=== PATIENT | male | born 1945 | race Caucasian/White ===

== ENCOUNTER 2016-10-07 07:08 | Emergency (ER) | payer MEDICARE, BC ==
[2016-10-07 07:31] VITALS: BP 128/68
--- NOTE | 2016-10-07 08:13 | UC ---
Kristina Rojas Edward, scribed for Amee Banuelos MD on 10/07/16 at 0722 . Complaint Male HPI - HPI Summary HPI Summary: 71 y/o male presents to [facility] c/o increased urinary frequency starting one week ago. Patient states that little urine comes out when the patient goes at night, starting 3 nights ago. Pt states has been urinating every 30-60 minutes since Sunday. Patient also reports when symptoms stated on Sunday had dysuria, characterized as a "searing pain," which has since resolved. The pain due to urination is rated at a 2/10 @ triage, but states when he gave his sample in the UC had no pain. Associated sx: chills (resolved), fevers (tactile - resolved), nausea when the patient started taking Bactrim - resolved, and chronic intermittent lower back pain unchanges from previous. Denies any changes in appetite. Pt state did not drink as much water due to frequency of urination. Pt denies abd pain and sense of distension. Pt reports has forgotten to take his Flomax over the past several day. PMHx slightly enlarged prostate, chronic back pain, cardiac disease, sleep apnea and Parkinson's disease. The patient was dx with a urinary infection by Dr. Patrick Vasquez (Urology) last week. Patient has been taking Bactrim starting Sunday evening. Patient's last prostate exam was around 6 months ago. Pt without h/o urinary retention. Past medications reviewed upon visit. - History of Current Complaint Chief Complaint: UCGU Stated Complaint: UTI COMPLAINT Hx Obtained From: Patient Onset/Duration: Gradual Onset, Lasting Weeks - Starting Sunday Timing: Intermittent Severity Initially: Moderate Severity Currently: Mild Pain Intensity: 2 - Dysuria Pain Scale Used: 0-10 Numeric - @ triage Character: Burning Associated Signs And Symptoms: Positive: Fever - and chills, Dysuria - with increased frequency. Pain now resolved, Nausea - When the patient started taking Bactrim - Allergies/Home Medications Allergies/Adverse Reactions: Allergies Allergy/AdvReac Type Severity Reaction Status Date / Time Ciprofloxacin [From Cipro] Allergy Unknown Difficulty Verified 09/04/16 15:08 Breathing Minocycline Allergy Unknown Hives Verified 09/04/16 15:08 Clopidogrel [From Plavix] AdvReac Unknown See Comment Verified 09/04/16 15:08 Home Medications: Home Medications Sulfamethox/Trimethoprim DS* [Bactrim DS 800/160 TAB*] 1 tab PO BID 10/07/16 [ History Confirmed 10/07/16] PMH/Surg Hx/FS Hx/Imm Hx Previously Healthy: No Cardiovascular History: Hypertension, Other Other Cardiovascular History: Irregular Heartbeat, Ischemic CVA Neurological History: Other Other Neurological History: Parkinson's Disease - Surgical History Surgical History: Yes Surgery Procedure, Year, and Place: T/A A CHILD, 1951, [place] NYTUMOR ON FOOT 1952 FROM PUNCTURE WOUND, WISDOM TEETH 1971, basal cell FACE AND BACK SEVERAL TIMES IN PAST 10-15 YRS, hernia repair (DOUBLE), Deep Brain Stimulation electrodes in place - Family History Known Family History: Positive: Hypertension Negative: Diabetes - Social History Occupation: Retired Lives: With Family Alcohol Use: Weekly Alcohol Amount: 2 glasses wine 4 days/week Substance Use Type: None Smoking Status (MU): Former Smoker Type: Pipe Amount Used/How Often: PIPE Have You Smoked in the Last Year: No When Did the Patient Quit Smoking/Using Tobacco: 1979 - Immunization History Most Recent Influenza Vaccination: 2014 Most Recent Tetanus Shot: 2014 Review of Systems Constitutional: Fever, Chills Skin: Negative Eyes: Negative ENT: Negative Respiratory: Negative Cardiovascular: Negative Gastrointestinal: Nausea Genitourinary: Dysuria - markedly improved, Frequency - Little urine comes out Motor: Negative Neurovascular: Negative Musculoskeletal: Myalgia - Chronic back pain - intermittent Neurological: Negative Psychological: Negative All Other Systems Reviewed And Are Negative: Yes Physical Exam Triage Information Reviewed: Yes Appearance: Well-Appearing, No Pain Distress, Well-Nourished Vital Signs: Initial Vital Signs Temp 98.2 F 10/07/16 07:12 Pulse 78 10/07/16 07:12 Resp 16 10/07/16 07:12 Pulse Ox 97 10/07/16 07:12 Eye Exam: Normal Eyes: Negative: Discharge ENT: Positive: Hearing grossly normal Dental Exam: Normal Neck exam: Normal Neck: Positive: 1 Respiratory Exam: Normal Respiratory: Positive: No respiratory distress, No accessory muscle use Cardiovascular Exam: Normal Abdominal Exam: Normal Abdomen Description: Positive: Nontender, No Organomegaly, Soft, Bruit. Negative: CVA Tenderness (R), CVA Tenderness (L), Distended, Guarding Bowel Sounds: Positive: Present Musculoskeletal Exam: Normal Neurological Exam: Normal Psychological Exam: Normal Skin Exam: Normal Complaint Male Course/Dx - Course Course Of Treatment: 71 y/o male presents to [facility] c/o increased urinary frequency starting one week ago, with little urine coming out and frequency. Pt does not feel distended or like he is retaining. Patient also c/o dysuria that has since resolved. Patient was dx with urinary infection by Dr. Vasquez on 01/09 and is on his fifth day of Bactrim. Pt has forgotten to take his flomax. Urinalysis today reveals trace blood and 1+ LE. Culture from 10/02 reveals bactrim sensitive E. Coli. Pt has only taken 4.5 days and overall has improved - no dysuria, resolved subjective fevers and chills, + appetite. No ultrasound available at this facility. I discussed with pt regarding diagnostic cath for retention and will leave in if pt is retaining. Pt declined this at this time as does not feel like is retaining. Pt with nonconcerning exam. Will continue Bactrim. encourage fluids. resume flomax. Pt is traveling out of town for a few days - given culture results to take with him. Pt encouraged to seek medical care if unable to urinate, fever, chills, back pain or any other concerns f/u dr. Vasquez upon return. Pt comfortable and in agreement with plan. Pt's urine sent for culture again today - Differential Dx/Diagnosis Provider Diagnoses: UTI Discharge - Discharge Plan Condition: Stable Disposition: HOME Patient Education Materials: Urinary Tract Infection in Men (ED) Referrals: Geraldo Saab MD [Primary Care Provider] - Additional Instructions: - Continue to take Bactrim as previously prescribed - Resume taking your flomax after dinner - Increase your fluids - avoid excess caffeine and alcohol - If you develop increased pain, fevers, vomiting, new or different back pain, abdominal pain, or inability to urinate it is strongly recommended you seek treatment at the nearest medical facility - If you continue to have questions or concerns, contact Dr. Vasquez or return to a medical facility The documentation as recorded by the Kristina vasquez Edward accurately reflects the service I personally performed and the decisions made by me, Amee Banuelos MD.
== END 2016-10-07 08:17 | disposition home or self-care (01) ==
LOC: UCEAST 07:08
DX: N39.0 Urinary tract infection, site not specified (principal)
CPT/HCPCS: 81003; 87086; 99212; G0463

== ENCOUNTER 2017-05-02 07:04 | Emergency (ER) | payer MEDICARE, BC ==
--- OUTSIDE RECORDS SUMMARY | 2017-05-02 07:17 | XMS REPORT ---
:1945 External Reference #:[id number] Author Organization [facility] Address [address] [address] Phone [phone] Care Team Providers Name Role Phone Geraldo Saab III, MD Primary Care Physician Unavailable Payers Type Date Identification Numbers Payment Provider Subscriber Medicare Primary Effective: Policy Number: Medicare Chris Wallis JR 2009 [id number] PayID: [id number] [address] [place] [address] Medigap Part B Policy Number: [id number] [facility] Chris Wallis JR Group Number: [id number] [address] PayID: [id number] [place] [address] Problems Date Description Provider Status Onset: 11/24/2010 Impaired fasting glycaemia Geraldo Saab M.D. Active Onset: 11/24/2010 Allergic rhinitis Geraldo Saab M.D. Active Onset: 04/19/2011 Arthralgia of the lower leg Geraldo Saab M.D. Active Onset: 06/20/2011 Malaise and fatigue Geraldo Saab M.D. Active Onset: 07/17/2011 Urinary tract infectious disease Geraldo Saab M.D. Active Onset: 11/01/2011 Dyspnea Geraldo Saab M.D. Active Onset: 11/01/2011 Amnesia Geraldo Saab M.D. Active Onset: 11/22/2011 Electrocardiogram abnormal Nahun Clay M.D. Active Onset: 08/27/2012 Umbilical hernia Geraldo Saab M.D. Active Onset: 06/23/2013 Sleep apnea Geraldo Saab M.D. Active Onset: 06/23/2013 Parkinson's disease Geraldo Saab M.D. Active Onset: 08/08/2013 Pure hypercholesterolemia Nahun Clay M.D. Active Onset: 08/08/2013 Coronary arteriosclerosis Nahun Clay M.D. Active Onset: 08/08/2013 Edema Nahun Clay M.D. Active Onset: 10/01/2014 Difficulty breathing Sarah Muniz MD Active Onset: 10/06/2014 Obstructive sleep apnea of adult Shira Loredo DNP, RN, Active [facility] Social History Type Date Description Comments Marital Status Lives With Occupation Retired Cigarette Use Never Smoked Cigarettes Cigarette Use pipe only in the past Cigarette Use Quit in 1982 ETOH Use Consumes 1 glass of wine per 3-4 days weekly day Recreational Drug Use Denies Drug Use Smoking Patient is a former smoker Daily Caffeine Consumes on average 1 cup of hot tea per day Daily Caffeine 4 cups of coffee a week Exercise Type/Frequency Exercises sporadically walks on occ for up to a half hr Allergies, Adverse Reactions, Alerts Date Description Reaction Status Severity Comments 03/28/2007 Plavix active 03/28/2007 Minocycline active Hives 07/17/2011 Cipro Cramps active Medications Medication Date Status Form Strength Qnty SIG Indications Ordering Provider Famotidine 04/10/ Active Tablets 40mg 30tab 1 by mouth K21.9 Geraldo Cruz 2017 s every day Josue Saab Azilect 05/04/ Active Tablets 1mg 2 tab daily Unknown 2016 Carbidopa-Levod 05/31/ Active Tablets 25-100mg 270ta 1 po 3x a Ck Brnuo opa 2015 day Josue Alaniz Prozac 05/31/ Active Capsules 20mg 90cap 1 by mouth Ck Bruno 2016 s every day Josue Alaniz OTC Hemmroid 11/26/ Active prn Geraldo Cruz Cream 2007 Josue Saab Ecotrin Regular / Active Tablets DR 81mg 1 PO qd Unknown Strength 0000 Flaxseed Oil / Active 1000mg 1 PO bid Katiana 0000 Geraldo GR MD Tamsulosin HCL / Active 0.4mg 1 po qd Unknown 0000 Cortisone Cream / Active topical Unknown 0000 Ciclopirox / Active Cream 0.77% 30gm apply to Unknown Olamine 0000 penis qd as needed Ducosate Sodium / Active Tablets DR 100mg 1 tab po Unknown 0000 qpm Triamcinolone / Active Cream 0.1% apply twice Unknown Acetonide 0000 a day until clear Magnesium / Active Tablets 250mg 1 by mouth Unknown 0000 twice a day Finasteride / Active Tablets 5mg Hannah, 0000 MD Migel Voltaren 07/11/ Hx Gel 1% 300gm apply 2 M79.672 John 2016 - grams of Gomez, [employer] 04/09/ gel twice 2018 daily to the affected area. Azithromycin 05/18/ Hx Tablets 250mg 6tabs two tabs J20.9 Kusum 2016 - day one, Varn, 05/28/ one daily N.P. 2017 till gone Cheratussin ac 05/18/ Hx Syrup 100-10mg/ 120ml 2 teaspoons J20.9 Kusum 2016 - 5ML by mouth Varn, 07/11/ every 4 N.P. 2017 hours as needed Dyazide 04/08/ Hx Capsules 37.5-25mg 30cap 1 by mouth Geraldo Cruz 2016 - s daily 3 Katiana, 12/28/ days per M.D. 2017 week Benzonatate 03/10/ Hx Capsules 100mg 30cap 1-2 tab by J06.9 Geraldo Cruz 2015 - s mouth three Katiana, 04/07/ times a day M.D. 2017 as needed Ropinirole HCL 05/31/ Hx Tablets 1mg 4 po tid Ck Bruno 2016 - Katty, 11/22/ M.D. 2016 Ropinirole HCL 04/21/ Hx Tablets 2mg 1 tab by Geraldo Cruz 2015 - mouth tid Katiana, 05/31/ M.D. 2016 Ropinirole HCL 03/01/ Hx Tablets 0.5mg 360ta 1 po tid Geraldo Cruz 2015 - bs Katiana, 04/21/ M.D. 2016 Nitrostat 12/02/ Hx Tablets Sub 0.4mg 25tab one sl Geraldo Cruz 2015 - s q5min up to Katiana, doses as M.D. 2016 needed Amantadine HCL 11/18/ Hx Syrup 50mg/5ML 150ml 25 mg/2.5 Ck Bruno 2014 - ml at 8 Am [place], and at no M.D. 2014 pt states this is on hold Carbidopa-Levod 09/24/ Hx Tablets 25-100mg 270ta / tab by Ck Bruno opa 2013 - bs mouth six , 02/09/ times every M.D. 2014 day Pravastatin 06/23/ Hx Tablets 20mg 90tab 1 tablet by 272.0 Geraldo Cruz Sodium 2013 - s mouth once Katiana, 06/11/ daily at M.D. 2013 bedtime Amantadine HCL 10/02/ Hx Syrup 50mg/5ML 350un 50 mg/5 ml Ck Bruno 2012 - its at [facility], 05/06/ M.D. 2013 Amantadine HCL 07/16/ Hx Capsules 100mg 90cap 1 by mouth Melia 2012 - s every Gnadt, [employer] 09/30/ morning on 2014 hold as of 08/24/14 Nasonex 05/30/ Hx Suspension 50mcg/Act 1unit 2 sprays to Nahun 2012 - s each F. 08/31/ nostril Danna, 2014 twice daily M.D. prn Asmanex 30 02/20/ Hx Aerosol 110mcg/In 30uni 1 puffs R06.00 Geraldo Cruz Metered Doses 2011 - h ts daily in Katiana, 03/01/ the evening M.D. 2014 Sulfamethoxazol 07/16/ Hx Tablets 800-160mg 20tab 1 po bid 599.0 Geraldo Cruz e/Trimethoprim 2011 - s Katiana, DUYEN 12/19/ M.D. 2011 Androderm 06/19/ Hx Patches 2mg/24HR 30uni apply 1 780.79 Geraldo Cruz 2011 - 24HR ts patch Katiana, 12/19/ daily; M.D. 2011 replace after 24 hours code f Cipro 12/06/ Hx Tablets 500mg 28tab 1 po bid 601.1 Jason 2010 - s [place] 04/19/ , M.D. 2012 Septra DS 11/25/ Hx Tablets 800-160mg 20tab 1 po bid 604.90 Geraldo Cruz 2009 - s Katiana, M.DPrtii 2009 Ibuprofen 05/03/ Hx Tablets 600mg 90tab 1 po tid Geraldo Cruz 2009 - s prn Katiana, M.D. 2016 Amoxicillin 12/19/ Hx Tablets 500mg 30tab 1 po tid Geraldo Cruz 2007 - s for 10 days Katiana, M.D. 2007 Liz 06/19/ Hx Tablets 180mg 30tab 1 po qd prn Geraldo Cruz 2007 - s Katiana, M.D. 2013 Physical PT Geraldo Cruz Therapy 2007 - evaluation Katiana, and M.DPriti 2009 treatment for neck pains Vitamin C / Hx Tablets 500mg 1 PO qd Katiana 0000 - III, 07/16/ Geraldo Cruz MD Multivitamins / Hx Tablets 90tab 1 PO qd Unknown 0000 - s 2011 Kenalog / Hx Cream 0.1% 60GM Apply bid Neville, 0000 - prn Eczema MD Javier 2008 Proctosol HC / Hx Cream 2.5% 60gm Apply bid Neville 0000 - ping Herrera MD 2008 Metamucil 00/00/ Hx Powder po with Unknown Original 0000 - liquid qhs Texture 2014 Nystatin 00/ Hx Cream [id number] 60g topically Unknown 0000 - t/GM bid prn 2015 Melatonin /00/ Hx Capsules 5mg 1 by mouth Unknown 0000 - every night 12/28/ at bedtime 2016 Prozac /00/ Hx Capsules 10mg 1 by mouth Unknown 0000 - every day 2015 Metamucil /00/ Hx Powder 28.3% as needed Unknown 0000 - 2014 Sinemet /00/ Hx Tablets 25-100mg 1/2 po bid Unknown 0000 - 2015 Neupro /00/ Hx Patches 2mg/24HR apply once Unknown 0000 - 24HR daily at 6 12/16/ am 2015 Aspirin Ec Low 00/ Hx Tablets DR 81mg 1 by mouth Unknown Dose 0000 - every day 2015 Medications Administered in Office Medication Date Status Form Strength Qnty SIG Indications Ordering Provider Influenza Administered Injection Geraldo Cruz Virus Vaccine 015 Josue Saab Influenza Administered Injection Unknown Virus Vaccine 014 Immunizations CPT Code Status Date Vaccine Lot # [id number] Given 01/14/2016 Fluzone High Dose 70089 Given 08/31/2014 Tdap - Tetanus/Diptheria/Acellular Pertussis [id number] 10018 Given 08/31/2014 Pneumococcal Conjugate Vaccine 13 Valent For [id number] Intramuscular Use 25505 Given 07/28/2010 Pneumonia Vaccine [id number] 33704 Given 01/14/2009 Influenza Virus 3Yrs & Over 83349 Given 09/07/2008 Zoster (Zostavax) 03160 Given 01/01/2008 Influenza Virus 3Yrs & Over 49591 Given 07/13/2004 Td (History By Patient) Vital Signs Date Vital Result Comment 04/12/2017 Height 68.25 inches 5'8.25" Weight 190.00 lb Heart Rate 63 /min BP Systolic Sitting 140 mmHg BP Diastolic Sitting 80 mmHg Body Temperature 95.1 F O2 % BldC Oximetry 98 % BMI (Body Mass Index) 28.7 kg/m2 04/10/2017 Height 68.25 inches 5'8.25" Weight 190.00 lb Heart Rate 67 /min BP Systolic Sitting 140 mmHg BP Diastolic Sitting 92 mmHg Body Temperature 97.7 F O2 % BldC Oximetry 96 % BMI (Body Mass Index) 28.7 kg/m2 12/29/2016 Height 70 inches 5'10" Weight 186.25 lb Heart Rate 62 /min BP Systolic 104 mmHg BP Diastolic 82 mmHg BMI (Body Mass Index) 26.7 kg/m2 07/11/2016 Weight 181.00 lb Heart Rate 65 /min BP Systolic Sitting 118 mmHg BP Diastolic Sitting 74 mmHg Pain Level 3 L foot O2 % BldC Oximetry 97 % 06/20/2016 Height 70 inches 5'10" Weight 175.00 lb Heart Rate 70 /min BP Systolic Sitting 124 mmHg BP Diastolic Sitting 82 mmHg BMI (Body Mass Index) 25.1 kg/m2 Ejection Fraction 50% - 55% echo 12/16/14 06/07/2016 Height 70 inches 5'10" Weight 173.00 lb Heart Rate 60 /min BP Systolic Sitting 138 mmHg BP Diastolic Sitting 82 mmHg Respiratory Rate 14 /min BMI (Body Mass Index) 24.8 kg/m2 05/18/2016 Weight 178.00 lb with shoes Heart Rate 65 /min BP Systolic 140 mmHg BP Diastolic 86 mmHg Body Temperature 99.0 F O2 % BldC Oximetry 98 % 05/05/2016 Height 68 inches 5'8" Weight 181.00 lb Heart Rate 58 /min BP Systolic 124 mmHg BP Diastolic 82 mmHg Respiratory Rate 14 /min O2 % BldC Oximetry 93 % BMI (Body Mass Index) 27.5 kg/m2 04/07/2016 Height 68 inches 5'8" Weight 181.12 lb Heart Rate 63 /min BP Systolic 120 mmHg BP Diastolic 80 mmHg Body Temperature 97.4 F O2 % BldC Oximetry 99 % BMI (Body Mass Index) 27.5 kg/m2 03/10/2016 Weight 170.00 lb Heart Rate 54 /min BP Systolic Sitting 130 mmHg BP Diastolic Sitting 70 mmHg Body Temperature 98.1 F O2 % BldC Oximetry 98 % 01/28/2016 Weight 166.00 lb Heart Rate 71 /min BP Systolic Sitting 114 mmHg BP Diastolic Sitting 64 mmHg Body Temperature 97.7 F O2 % BldC Oximetry 98 % 01/05/2016 Height 69.5 inches 5'9.50" Weight 164.00 lb Heart Rate 52 /min BP Systolic Sitting 140 mmHg BP Diastolic Sitting 82 mmHg Body Temperature 97.7 F O2 % BldC Oximetry 99 % BMI (Body Mass Index) 23.9 kg/m2 11/24/2015 Height 70 inches 5'10" Weight 159.25 lb Heart Rate 72 /min BP Systolic Sitting 140 mmHg BP Diastolic Sitting 80 mmHg Respiratory Rate 16 /min O2 % BldC Oximetry 97 % BMI (Body Mass Index) 22.8 kg/m2 06/01/2015 Height 70 inches 5'10" Weight 163.00 lb Patient reported this Am Heart Rate 64 /min BP Systolic Sitting 128 mmHg BP Diastolic Sitting 78 mmHg Respiratory Rate 16 /min BMI (Body Mass Index) 23.4 kg/m2 04/21/2015 Height 70 inches 5'10" Weight 163.00 lb Heart Rate 66 /min BP Systolic Sitting 142 mmHg LA, reg BP Diastolic Sitting 96 mmHg LA, reg BMI (Body Mass Index) 23.4 kg/m2 Ejection Fraction 50%-55% echo 12/16/14 03/01/2015 Height 70 inches 5'10" Weight 163.00 lb Heart Rate 88 /min BP Systolic Sitting 134 mmHg BP Diastolic Sitting 84 mmHg Body Temperature 97.2 F BMI (Body Mass Index) 23.4 kg/m2 02/10/2015 Height 70 inches 5'10" Heart Rate 64 /min BP Systolic Sitting 136 mmHg BP Diastolic Sitting 80 mmHg Respiratory Rate 16 /min 12/24/2014 Height 70 inches 5'10" Weight 157.00 lb w/shoes Heart Rate 60 /min BP Systolic Sitting 138 mmHg LA reg cuff BP Diastolic Sitting 100 mmHg LA reg cuff BMI (Body Mass Index) 22.5 kg/m2 Ejection Fraction 50-55 echo 12/16/14 12/03/2014 Height 70 inches 5'10" Weight 158.00 lb Heart Rate 84 /min BP Systolic 142 mmHg LA reg BP Diastolic 98 mmHg LA reg BMI (Body Mass Index) 22.7 kg/m2 Ejection Fraction 55-60% ECHO 09/09/14 12/02/2014 Height 70 inches 5'10" Weight 158.00 lb Heart Rate 66 /min BP Systolic Sitting 124 mmHg BP Diastolic Sitting 78 mmHg O2 % BldC Oximetry 96 % BMI (Body Mass Index) 22.7 kg/m2 11/18/2014 Height 70 inches 5'10" Weight 161.00 lb Heart Rate 76 /min BP Systolic Sitting 130 mmHg BP Diastolic Sitting 82 mmHg Respiratory Rate 16 /min BMI (Body Mass Index) 23.1 kg/m2 10/06/2014 Height 70 inches 5'10" Weight 167.00 lb Heart Rate 62 /min BP Systolic 140 mmHg BP Diastolic 80 mmHg Respiratory Rate 14 /min O2 % BldC Oximetry 96 % BMI (Body Mass Index) 24.0 kg/m2 Neck Circumference in inches 15 10/01/2014 Height 70 inches 5'10" Weight 165.00 lb Heart Rate 71 /min BP Systolic Sitting 130 mmHg BP Diastolic Sitting 70 mmHg O2 % BldC Oximetry 97 % BMI (Body Mass Index) 23.7 kg/m2 09/07/2014 Height 69 inches 5'9" Weight 167.00 lb w/shoes Heart Rate 74 /min BP Systolic Sitting 142 mmHg LA reg cuff BP Diastolic Sitting 82 mmHg LA reg cuff Respiratory Rate 14 /min BMI (Body Mass Index) 24.7 kg/m2 Ejection Fraction 50-55 echo 06/12/14 09/03/2014 Height 69 inches 5'9" Weight 168.38 lb Heart Rate 77 /min BP Systolic Sitting 120 mmHg BP Diastolic Sitting 60 mmHg Respiratory Rate 18 /min Body Temperature 97.1 F O2 % BldC Oximetry 97 % BMI (Body Mass Index) 24.9 kg/m2 08/31/2014 Weight 168.25 lb Heart Rate 74 /min BP Systolic Sitting 112 mmHg BP Diastolic Sitting 70 mmHg Respiratory Rate 16 /min Body Temperature 98.7 F O2 % BldC Oximetry 98 % 05/21/2014 Weight 173.00 lb Heart Rate 66 /min BP Systolic Sitting 160 mmHg BP Diastolic Sitting 80 mmHg Body Temperature 97.6 F 05/07/2014 Weight 175.25 lb Heart Rate 50 /min BP Systolic Sitting 132 mmHg BP Diastolic Sitting 80 mmHg Body Temperature 97.2 F Pain Level 3 04/28/2014 Height 69.5 inches 5'9.50" Weight 176.00 lb Heart Rate 68 /min BP Systolic Sitting 128 mmHg BP Diastolic Sitting 72 mmHg Respiratory Rate 16 /min BMI (Body Mass Index) 25.6 kg/m2 04/23/2014 Weight 177.75 lb Heart Rate 77 /min BP Systolic Sitting 128 mmHg BP Diastolic Sitting 83 mmHg 04/21/2014 Height 70 inches 5'10" Weight 177.25 lb with shoes Heart Rate 58 /min BP Systolic 121 mmHg repeat BP Diastolic 82 mmHg repeat BP Systolic Sitting 134 mmHg La reg cuff BP Diastolic Sitting 82 mmHg La reg cuff Respiratory Rate 16 /min BMI (Body Mass Index) 25.4 kg/m2 03/02/2014 Weight 176.25 lb Heart Rate 67 /min BP Systolic 116 mmHg BP Diastolic 82 mmHg Body Temperature 97.0 F O2 % BldC Oximetry 98 % 01/05/2014 Height 69.5 inches 5'9.50" Weight 172.50 lb Heart Rate 64 /min BP Systolic Sitting 130 mmHg BP Diastolic Sitting 82 mmHg Body Temperature 97.8 F BMI (Body Mass Index) 25.1 kg/m2 10/29/2013 Height 69.5 inches 5'9.50" Weight 168.00 lb Heart Rate 64 /min BP Systolic Sitting 118 mmHg BP Diastolic Sitting 76 mmHg Respiratory Rate 16 /min BMI (Body Mass Index) 24.5 kg/m2 08/08/2013 Height 69.5 inches 5'9.50" Weight 169.00 lb Heart Rate 56 /min BP Systolic Sitting 128 mmHg BP Diastolic Sitting 70 mmHg Respiratory Rate 16 /min BMI (Body Mass Index) 24.6 kg/m2 07/15/2013 Height 69.5 inches 5'9.50" Weight 169.00 lb Heart Rate 67 /min BP Systolic Sitting 130 mmHg BP Diastolic Sitting 80 mmHg Respiratory Rate 16 /min BMI (Body Mass Index) 24.6 kg/m2 06/23/2013 Weight 173.00 lb Heart Rate 60 /min BP Systolic Sitting 130 mmHg BP Diastolic Sitting 82 mmHg 01/23/2013 Height 69.5 inches 5'9.50" Weight 174.00 lb Heart Rate 56 /min BP Systolic Sitting 108 mmHg BP Diastolic Sitting 78 mmHg Body Temperature 97.8 F BMI (Body Mass Index) 25.3 kg/m2 01/15/2013 Heart Rate 64 /min BP Systolic Sitting 128 mmHg BP Diastolic Sitting 74 mmHg Respiratory Rate 18 /min 12/23/2012 Height 69.5 inches 5'9.50" Weight 169.25 lb Heart Rate 62 /min BP Systolic Sitting 144 mmHg BP Diastolic Sitting 82 mmHg BMI (Body Mass Index) 24.6 kg/m2 08/27/2012 Height 69.5 inches 5'9.50" Weight 178.25 lb Heart Rate 56 /min BP Systolic Sitting 120 mmHg BP Diastolic Sitting 80 mmHg BMI (Body Mass Index) 25.9 kg/m2 08/02/2012 Height 69.5 inches 5'9.50" Weight 180.75 lb Heart Rate 80 /min BP Systolic Sitting 128 mmHg irregular BP Diastolic Sitting 62 mmHg irregular BMI (Body Mass Index) 26.3 kg/m2 06/19/2012 Height 69.5 inches 5'9.50" Weight 184.50 lb Heart Rate 62 /min BP Systolic Sitting 132 mmHg BP Diastolic Sitting 78 mmHg BMI (Body Mass Index) 26.9 kg/m2 06/10/2012 Height 69.5 inches 5'9.50" Weight 184.25 lb Heart Rate 68 /min BP Systolic Sitting 112 mmHg BP Diastolic Sitting 70 mmHg BMI (Body Mass Index) 26.8 kg/m2 05/30/2012 Height 69.5 inches 5'9.50" Weight 186.00 lb Heart Rate 76 /min BP Systolic 120 mmHg BP Diastolic 80 mmHg Respiratory Rate 16 /min BMI (Body Mass Index) 27.1 kg/m2 05/03/2012 Height 69.5 inches 5'9.50" Weight 182.00 lb Heart Rate 64 /min BP Systolic Sitting 124 mmHg BP Diastolic Sitting 84 mmHg Body Temperature 99.2 F O2 % BldC Oximetry 98 % BMI (Body Mass Index) 26.5 kg/m2 04/03/2012 Height 69.25 inches 5'9.25" Weight 183.00 lb Heart Rate 72 /min BP Systolic Sitting 122 mmHg BP Diastolic Sitting 70 mmHg BMI (Body Mass Index) 26.8 kg/m2 02/21/2012 Height 69.75 inches 5'9.75" Weight 182.00 lb Heart Rate 72 /min BP Systolic Sitting 145 mmHg BP Diastolic Sitting 80 mmHg BMI (Body Mass Index) 26.3 kg/m2 12/20/2011 Height 69.75 inches 5'9.75" Weight 179.00 lb Heart Rate 68 /min BP Systolic Sitting 120 mmHg BP Diastolic Sitting 86 mmHg BMI (Body Mass Index) 25.9 kg/m2 11/01/2011 Height 69.75 inches 5'9.75" Weight 184.00 lb Heart Rate 66 /min BP Systolic Sitting 116 mmHg BP Diastolic Sitting 78 mmHg BMI (Body Mass Index) 26.6 kg/m2 08/17/2011 Height 69.75 inches 5'9.75" Weight 178.00 lb Heart Rate 72 /min BP Systolic Sitting 124 mmHg BP Diastolic Sitting 84 mmHg BMI (Body Mass Index) 25.7 kg/m2 07/17/2011 Height 69.75 inches 5'9.75" Weight 187.00 lb Heart Rate 68 /min BP Systolic Sitting 130 mmHg BP Diastolic Sitting 72 mmHg Body Temperature 99.5 F BMI (Body Mass Index) 27.0 kg/m2 07/07/2011 Height 69.75 inches 5'9.75" Weight 187.00 lb Heart Rate 68 /min BP Systolic Sitting 130 mmHg BP Diastolic Sitting 94 mmHg Body Temperature 99.2 F Tympanically BMI (Body Mass Index) 27.0 kg/m2 06/20/2011 Height 69.75 inches 5'9.75" Weight 186.00 lb Heart Rate 68 /min BP Systolic Sitting 134 mmHg BP Diastolic Sitting 88 mmHg BMI (Body Mass Index) 26.9 kg/m2 06/13/2011 Height 69.75 inches 5'9.75" Weight 186.00 lb Heart Rate 72 /min BP Systolic Sitting 112 mmHg BP Diastolic Sitting 60 mmHg BMI (Body Mass Index) 26.9 kg/m2 04/19/2011 Height 69.75 inches 5'9.75" Weight 183.50 lb Heart Rate 60 /min BP Systolic Sitting 134 mmHg BP Diastolic Sitting 84 mmHg BMI (Body Mass Index) 26.5 kg/m2 12/06/2010 Weight 183.00 lb Heart Rate 60 /min BP Systolic Sitting 122 mmHg BP Diastolic Sitting 84 mmHg 11/24/2010 Height 69.5 inches 5'9.50" Weight 182.00 lb Heart Rate 76 /min BP Systolic Sitting 122 mmHg L BP Diastolic Sitting 84 mmHg L BMI (Body Mass Index) 26.5 kg/m2 07/28/2010 Weight 189.00 lb Heart Rate 60 /min BP Systolic Sitting 132 mmHg BP Diastolic Sitting 86 mmHg 04/15/2010 Weight 188.00 lb Heart Rate 84 /min BP Systolic Sitting 134 mmHg BP Diastolic Sitting 88 mmHg Body Temperature 98.6 F O2 % BldC Oximetry 98 % 11/25/2009 Weight 192.00 lb Heart Rate 58 /min BP Systolic Sitting 134 mmHg BP Diastolic Sitting 84 mmHg 09/09/2009 Weight 189.00 lb Heart Rate 62 /min BP Systolic Sitting 122 mmHg BP Diastolic Sitting 84 mmHg 05/31/2009 Height 70.75 inches 5'10.75" Weight 193.00 lb Heart Rate 72 /min BP Systolic Sitting 138 mmHg BP Diastolic Sitting 82 mmHg BMI (Body Mass Index) 27.1 kg/m2 05/03/2009 Height 70.75 inches 5'10.75" Weight 192.00 lb Heart Rate 72 /min BP Systolic Sitting 142 mmHg BP Diastolic Sitting 86 mmHg Body Temperature 97.6 F BMI (Body Mass Index) 27.0 kg/m2 12/17/2008 Heart Rate 72 /min BP Systolic Sitting 112 mmHg BP Diastolic Sitting 70 mmHg 09/07/2008 Height 70.75 inches 5'10.75" Weight 189.00 lb Heart Rate 76 /min BP Systolic Sitting 118 mmHg BP Diastolic Sitting 78 mmHg Respiratory Rate 20 /min BMI (Body Mass Index) 26.5 kg/m2 12/20/2007 Height 70 inches 5'10" Heart Rate 80 /min BP Systolic Sitting 124 mmHg BP Diastolic Sitting 80 mmHg 11/27/2007 Height 70 inches 5'10" Weight 189.00 lb Heart Rate 76 /min BP Systolic Sitting 126 mmHg BP Diastolic Sitting 86 mmHg BMI (Body Mass Index) 27.1 kg/m2 09/05/2007 Height 70 inches 5'10" Weight 191.00 lb Heart Rate 72 /min BP Systolic Sitting 130 mmHg BP Diastolic Sitting 90 mmHg BMI (Body Mass Index) 27.4 kg/m2 06/20/2007 Height 70 inches 5'10" Weight 194.00 lb Heart Rate 60 /min BP Systolic Sitting 136 mmHg BP Diastolic Sitting 90 mmHg BMI (Body Mass Index) 27.8 kg/m2 03/29/2007 Height 70 inches 5'10" Weight 185.00 lb Heart Rate 68 /min BP Systolic Sitting 124 mmHg BP Diastolic Sitting 80 mmHg BMI (Body Mass Index) 26.5 kg/m2 Results Test Date Test Result H/L Range Note Lipid Profile (Trig/Chol/HDL) 04/04/2017 Triglycerides 37 mg/dL 1 Cholesterol 160 mg/dL 2 HDL Cholesterol 72.1 mg/dL 3 LDL Cholesterol 81 mg/dL 4 Laboratory test finding 04/04/2017 PSA Screening 3.049 ng/mL 0-4.0 5 Urine Culture And 10/07/2016 Urine Culture SEE RESULT BELOW 6, 7 Sensitivities Poc Urinalysis 10/07/2016 Poc Glucose, Urine Negative Negative Poc Bilirubin, Urine Negative Negative Poc Ketone, Urine Negative Negative Poc Specific [place], Urine 1.025 1.010-1.030 Poc Blood, Urine Trace-intact Negative Poc pH, Urine 6.0 5-9 Poc Protein, Urine Negative Negative Poc Urobilinogen, Urine 0.2 Negative Poc Nitrite, Urine Negative Negative Poc Leukocytes, Urine Trace Negative Poc Color, Urine Yellow Poc Clarity, Urine Slightly Cloudy 8 Basic Metabolic Panel 04/07/2016 Sodium 139 mmol/L 133-145 Potassium 4.3 mmol/L 3.5-5.0 Chloride 103 mmol/L 101-111 Co2 Carbon Dioxide 31 mmol/L 22-32 Anion Gap 5 mmol/L 2-11 Glucose 90 mg/dL 70-100 Blood Urea Nitrogen 17 mg/dL 6-24 Creatinine 0.80 mg/dL 0.67-1.17 BUN/Creatinine Ratio 21.3 High 8-20 Calcium 9.0 mg/dL 8.6-10.3 Egfr Non- 95.3 >60 Egfr 122.6 >60 9 Laboratory test finding 04/07/2016 B-Type Natriuretic Peptide BNP 50 pg/mL 10 TSH (Thyroid Stim Horm) 1.79 mcIU/mL 0.34-5.60 Magnesium 1.8 mg/dL Low 1.9-2.7 Lipid Profile (Trig/Chol/HDL) 04/01/2016 Triglycerides 44 mg/dL 11 Cholesterol 169 mg/dL 12 HDL Cholesterol 71.6 mg/dL 13 LDL Cholesterol 89 mg/dL 14 Basic Metabolic Panel 01/21/2016 Sodium 140 mmol/L 133-145 Potassium 4.6 mmol/L 3.5-5.0 Chloride 105 mmol/L 101-111 Co2 Carbon Dioxide 31 mmol/L 22-32 Anion Gap 4 mmol/L 2-11 Glucose 87 mg/dL 70-100 Blood Urea Nitrogen 20 mg/dL 6-24 Creatinine 0.76 mg/dL 0.67-1.17 BUN/Creatinine Ratio 26.3 High 8-20 Calcium 9.3 mg/dL 8.6-10.3 Egfr Non- 101.1 >60 Egfr 130.0 >60 15 CBC Auto Diff 01/21/2016 White Blood Count 6.0 10^3/uL 3.5-10.8 Red Blood Count 4.41 10^6/uL 4.0-5.4 Hemoglobin 14.7 g/dL 14.0-18.0 Hematocrit 44 % 42-52 Mean Corpuscular Volume 99 fL High 80-94 Mean Corpuscular Hemoglobin 33 pg High 27-31 Mean Corpuscular HGB Conc 34 g/dL 31-36 Red Cell Distribution Width 13 % 10.5-15 Platelet Count 168 10^3/uL 150-450 Mean Platelet Volume 10 um3 7.4-10.4 Abs Neutrophils 4.3 10^3/uL 1.5-7.7 Abs Lymphocytes 1.2 10^3/uL 1.0-4.8 Abs Monocytes 0.5 10^3/uL 0-0.8 Abs Eosinophils 0 10^3/uL 0-0.6 Abs Basophils 0.1 10^3/uL 0-0.2 Abs Nucleated RBC 0 10^3/uL Granulocyte % 70.4 % 38-83 Lymphocyte % 19.3 % Low 25-47 Monocyte % 7.5 % 1-9 Eosinophil % 0.7 % 0-6 Basophil % 2.1 % High 0-2 Nucleated Red Blood Cells % 0 Urinalysis Profile 01/21/2016 Urine Color Yellow Urine Appearance Cloudy Urine Specific [place] 1.023 1.010-1.030 Urine pH 5.0 5-9 Urine Urobilinogen Negative Negative Urine Ketones Negative Negative Urine Protein Negative Negative Urine Leukocytes Negative Negative Urine Blood Negative Negative * * Negative 16 Urine Nitrite Negative Negative Urine Bilirubin Negative Negative Urine Glucose Negative Negative Inr/Protime 01/21/2016 Inr 0.98 0.89-1.11 Laboratory test finding 01/21/2016 Partial Thrombo Time 31.6 seconds 26.0 -36.3 PTT CBC Auto Diff 12/25/2015 White Blood Count 6.0 10^3/uL 3.5-10.8 Red Blood Count 4.45 10^6/uL 4.0-5.4 Hemoglobin 14.7 g/dL 14.0-18.0 Hematocrit 44 % 42-52 Mean Corpuscular Volume 99 fL High 80-94 Mean Corpuscular Hemoglobin 33 pg High 27-31 Mean Corpuscular HGB Conc 34 g/dL 31-36 Red Cell Distribution Width 13 % 10.5-15 Platelet Count 157 10^3/uL 150-450 Mean Platelet Volume 9 um3 7.4-10.4 Abs Neutrophils 4.2 10^3/uL 1.5-7.7 Abs Lymphocytes 1.2 10^3/uL 1.0-4.8 Abs Monocytes 0.5 10^3/uL 0-0.8 Abs Eosinophils 0 10^3/uL 0-0.6 Abs Basophils 0.1 10^3/uL 0-0.2 Abs Nucleated RBC 0 10^3/uL Granulocyte % 70.4 % 38-83 Lymphocyte % 19.2 % Low 25-47 Monocyte % 8.5 % 1-9 Eosinophil % 0.8 % 0-6 Basophil % 1.1 % 0-2 Nucleated Red Blood Cells % 0.1 Laboratory test finding 12/25/2015 B-Type Natriuretic 78 pg/mL 17 Peptide BNP Inr/Protime 12/25/2015 Inr 1.00 0.89-1.11 Laboratory test finding 12/25/2015 Partial Thrombo Time 31.1 seconds 26.0 -36.3 PTT Lactic Acid 0.8 mmol/L 0.5-2.0 18 Comp Metabolic Panel 12/25/2015 Sodium 137 mmol/L 133-145 Potassium 4.1 mmol/L 3.5-5.0 Chloride 102 mmol/L 101-111 Co2 Carbon Dioxide 30 mmol/L 22-32 Anion Gap 5 mmol/L 2-11 Glucose 87 mg/dL 70-100 Blood Urea Nitrogen 17 mg/dL 6-24 Creatinine 0.79 mg/dL 0.67-1.17 BUN/Creatinine Ratio 21.5 High 8-20 Calcium 8.7 mg/dL 8.6-10.3 Total Protein 6.2 g/dL Low 6.4-8.9 Albumin 3.8 g/dL 3.2-5.2 Globulin 2.4 g/dL 2-4 Albumin/Globulin Ratio 1.6 1-3 Total Bilirubin 1.20 mg/dL High 0.2-1.0 Alkaline Phosphatase 58 U/L 34-104 Alt < 3 U/L Low 7-52 Ast 15 U/L 13-39 Egfr Non- 97.0 >60 Egfr 124.7 >60 19 Laboratory test finding 12/25/2015 Magnesium 1.8 mg/dL Low 1.9-2.7 Lipase 7 U/L Low 11.0-82.0 Creatine Kinase(CK) 58 U/L 10-223 C Reactive Protein < 1.00 mg/L < 5.00 20 Troponin-I (TnI) 0.00 ng/mL <0.03 21 CKMB 12/25/2015 CKMB ng/mL 2.1 ng/mL 0.6-6.3 Laboratory test finding 12/25/2015 TSH (Thyroid Stim Horm) 1.77 mcIU/mL 0.34-5.60 Laboratory test finding 02/03/2015 PSA Diagnostic 2.347 ng/mL 0-4.0 22 Basic Metabolic Panel 12/03/2014 Sodium 139 mmol/L 133-145 23 Potassium 4.0 mmol/L 3.5-5.0 23 Chloride 101 mmol/L 101-111 23 Co2 Carbon Dioxide 34 mmol/L High 22-32 23 Anion Gap 4 mmol/L 2-11 23 Glucose 91 mg/dL 70-100 23 Blood Urea Nitrogen 16 mg/dL 6-24 23 Creatinine 0.80 mg/dL 0.67-1.17 23 BUN/Creatinine Ratio 20.0 8-20 23 Calcium 9.2 mg/dL 8.6-10.3 23 Egfr Non- 95.8 >60 23 Egfr 123.3 >60 23, 24 Laboratory test finding 12/03/2014 Troponin-I (TnI) 0.00 ng/mL <0.03 23, 25 Magnesium 1.9 mg/dL 1.9-2.7 23, 26 Laboratory test finding 09/09/2014 B-Type Natriuretic Peptide 17 pg/mL 27 BNP Comp Metabolic Panel 09/09/2014 Sodium 140 mmol/L 133-145 Potassium 4.2 mmol/L 3.5-5.0 Chloride 105 mmol/L 101-111 Co2 Carbon Dioxide 29 mmol/L 22-32 Anion Gap 6 mmol/L 2-11 Glucose 91 mg/dL 70-100 Blood Urea Nitrogen 16 mg/dL 6-24 Creatinine 0.82 mg/dL 0.67-1.17 BUN/Creatinine Ratio 19.5 8-20 Calcium 9.5 mg/dL 8.6-10.3 Total Protein 6.1 g/dL Low 6.4-8.9 Albumin 4.1 g/dL 3.2-5.2 Globulin 2.0 g/dL 2-4 Albumin/Globulin Ratio 2.1 1-3 Total Bilirubin 1.20 mg/dL High 0.2-1.0 Alkaline Phosphatase 58 U/L 34-104 Alt 4 U/L Low 7-52 Ast 15 U/L 13-39 Egfr Non- 93.2 >60 Egfr 119.8 >60 28 Lipid Profile (Trig/Chol/HDL) 09/09/2014 Triglycerides 39 mg/dL 29 Cholesterol 148 mg/dL 30 HDL Cholesterol 67.3 mg/dL 31 LDL Cholesterol 73 mg/dL 32 Laboratory test finding 09/09/2014 Creatine Kinase(CK) 61 U/L 10-223 33 CBC Auto Diff 09/09/2014 White Blood Count 4.4 10^3/uL Low 4.8-10.8 Red Blood Count 4.67 10^6/uL 4.0-5.4 Hemoglobin 15.6 g/dL 14.0-18.0 Hematocrit 46 % 42-52 Mean Corpuscular Volume 99 fL High 80-94 Mean Corpuscular Hemoglobin 33 pg High 27-31 Mean Corpuscular HGB Conc 34 g/dL 31-36 Red Cell Distribution Width 13 % 10.5-15 Platelet Count 165 10^3/uL 150-450 Mean Platelet Volume 9 um3 7.4-10.4 Abs Neutrophils 2.3 10^3/uL 1.5-7.7 Abs Lymphocytes 1.5 10^3/uL 1.0-4.8 Abs Monocytes 0.5 10^3/uL 0-0.8 Abs Eosinophils 0.1 10^3/uL 0-0.6 Abs Basophils 0.1 10^3/uL 0-0.2 Abs Nucleated RBC 0 10^3/uL Granulocyte % 52.4 % 38-83 Lymphocyte % 34.0 % 25-47 Monocyte % 10.5 % High 1-9 Eosinophil % 1.7 % 0-6 Basophil % 1.4 % 0-2 Nucleated Red Blood Cells % 0 Laboratory test finding 09/09/2014 TSH (Thyroid Stim 1.44 ?IU/mL 0.34- 5.60 34 Horm) Iron & Iron Binding 09/09/2014 Iron 75 g/dL 50-212 Capacity Unsaturated Iron Binding 260 g/dL Total Iron Binding Capacity 335 g/dL 250-450 % Iron Saturation 22 % 15-55 Comp Metabolic Panel 12/31/2013 Sodium 139 mmol/L 133-145 Potassium 4.2 mmol/L 3.7-5.6 Chloride 105 mmol/L 101-111 Co2 Carbon Dioxide 31 mmol/L 22-32 Anion Gap 3 mmol/L 2-11 Blood Urea Nitrogen 15 mg/dL 6-24 Creatinine 0.78 mg/dL 0.67-1.17 BUN/Creatinine Ratio 19.2 8-20 Calcium 9.0 mg/dL 8.6-10.3 Total Protein 5.9 g/dL Low 6.4-8.9 Albumin 4.0 g/dL 3.2-5.2 Globulin 1.9 g/dL Low 2-4 Albumin/Globulin Ratio 2.1 1-3 Total Bilirubin 1.30 mg/dL High 0.2-1.0 Alkaline Phosphatase 63 U/L 34-104 Alt 14 U/L 7-52 Ast 15 U/L 13-39 Egfr Non- 99.0 >60 Egfr 127.3 >60 35 Laboratory test finding 12/31/2013 Glucose 93 mg/dL 70-100 Hemoglobin A1c 5.5 % Less than 6.0 36 Lipid Profile (Trig/Chol/HDL) 12/31/2013 Triglycerides 51 mg/dL 37 Cholesterol 156 mg/dL 38 HDL Cholesterol 73.3 mg/dL 39 LDL Cholesterol 73 mg/dL 40 Laboratory test finding 06/23/2013 Hemoglobin A1c 5.4 5-7 Laboratory test finding 09/25/2012 PSA Screening 2.72 ng/mL 0-4.0 41 Comp Metabolic Panel 07/05/2012 Sodium 139 mmol/L 133-145 Potassium 4.3 mmol/L 3.5-5.0 Chloride 103 mmol/L 101-111 Co2 Carbon Dioxide 30.0 mmol/L 22-32 Anion Gap 6.0 mmol/L 2-11 Glucose 102 mg/dL High 70-100 Blood Urea Nitrogen 13 mg/dL 6-24 Creatinine 1.00 mg/dL 0.50-1.40 BUN/Creatinine Ratio 13.0 8-20 Calcium 9.3 mg/dL 8.1-9.9 Total Protein 5.9 g/dL Low 6.2-8.1 Albumin 3.9 g/dL 3.2-5.2 Globulin 2.0 g/dL 2-4 Albumin/Globulin Ratio 2.0 1-3 Total Bilirubin 1.4 mg/dL 0.4-1.5 Alkaline Phosphatase 66 U/L 30-110 Alt 16 U/L 14-54 Ast 18 U/L 12-42 Egfr Non- 74.5 >60 Egfr 95.9 >60 42 Lipid Profile (Trig/Chol/HDL) 07/05/2012 Triglycerides 43 mg/dL 40-200 Cholesterol 172 mg/dL Less than 200 HDL Cholesterol 70 mg/dL High 40-60 43 Cholesterol/HDL Ratio 2.5 Average 1-4.44 LDL Cholesterol 93.4 mg/dL Less Than 100 44 Laboratory test finding 07/05/2012 Creatine Kinase 76 U/L 0-200 45 CBC Auto Diff 07/05/2012 White Blood Count 5.0 10^3/uL 4.8-10.8 Red Blood Count 4.50 10^6/uL 4.0-5.4 Hemoglobin 14.6 g/dL 14.0-18.0 Hematocrit 45 % 42-52 Mean Corpuscular Volume 99 fL High 80-94 Mean Corpuscular Hemoglobin 33 pg High 27-31 Mean Corpuscular HGB Conc 33 g/dL 31-36 Red Cell Distribution Width 14 % 10.5-15 Platelet Count 165 10^3/uL 150-450 Mean Platelet Volume 10 um3 7.4-10.4 Abs Neutrophils 2.8 10^3/uL 1.5-7.7 Abs Lymphocytes 1.5 10^3/uL 1.0-4.8 Abs Monocytes 0.4 10^3/uL 0-0.8 Abs Eosinophils 0.1 10^3/uL 0-0.6 Abs Basophils 0.1 10^3/uL 0-0.2 Abs Nucleated RBC 0 10^3/uL Granulocyte % 56.3 % 38-83 Lymphocyte % 31.0 % 25-47 Monocyte % 8.9 % 1-9 Eosinophil % 2.5 % 0-6 Basophil % 1.3 % 0-2 Nucleated Red Blood Cells % 0 Laboratory test finding 07/05/2012 TSH (Thyroid Stimulating 1.79 miu/mL 0.34-5.60 46 Horm) Laboratory test finding 03/27/2012 PSA Screening 2.85 ng/mL 0-4.0 47 Laboratory test finding 11/24/2011 Vitamin B12 303 pg/mL 180-914 TSH 1.34 MIU/ML 0.34-5.60 Laboratory test finding 10/26/2011 BNP Evaluatr 42.0 pg/mL 0-100 Comp Metabolic Panel 10/26/2011 Sodium 138 mmol/L 135-145 Potassium 4.3 mmol/L 3.5-5.0 Chloride 105 mmol/L 101-111 Co2 (Carbon Dioxide) 28.0 mmol/L 22-32 Anion Gap 5.0 mmol/L 2-11 48 Glucose 102 mg/dL High 70-100 BUN 15 mg/dL 6-24 Creatinine 0.8 mg/dL 0.50-1.40 One Over Creatinine 1.25 BUN/Creatinine Ratio 18.8 8-20 Calcium 9.1 mg/dL 8.1-9.9 Total Protein 5.5 GM/DL Low 6.2-8.1 Albumin 3.7 GM/DL 3.2-5.2 Globulin 1.8 GM/DL Low 2-4 Albumin/Globulin Ratio 2.1 1-3 Bilirubin Total 1.3 mg/dL 0.4-1.5 49 Alkaline Phosphatase 48 U/L 39-117 Alt (SGPT) 14 U/L Low 17-63 Ast (Sgot) 16 U/L 12-42 eGFR Non- 96.7 > 60 eGFR 124.4 > 60 50 Lipid Profile (Trig/Chol/HDL) 10/26/2011 Triglyceride 33 mg/dL Low 40-200 Cholesterol 165 mg/dL Less Than 200 51 High Density Lipoprotein 68 mg/dL High 40-60 52 Cholesterol/HDL Ratio 2.43 AVERAGE 1-4.97 Low Density Lipoprotein 90 mg/dL Less Than 100 53 CBC With Manual Diff 10/26/2011 White Blood Count 4.6 CUMM Low 4.8-10.8 Red Cell Count 4.13 CUMM Low 4.6-6.2 Hemoglobin 14.4 g/dL 14.0-18.0 Hematocrit 42 % 42-52 Mean Corpuscular Volume 100 um3 High 80-94 Mean Corpuscular Hemoglob 35 pg High 27-31 Mean Corpuscular HGB Cone 35 g/dL 32-36 Redcell Distribution WDTH 13 % 10.5-15 Platelet Count 150 CUMM 150-450 Mean Platelet Volume 9.7 um3 7.4-10.4 Absolute Neutrophil Count 2.7 1.5-7.7 Polysegmented Neutrophil 58 % 38-83 Lymphocyte 27 % 25-47 Monocyte 11 % 0-13 Eosinophil 2 % 0-6 Basophil 2 % 0-2 Anisocytosis SLIGHT Macrocytosis FEW Laboratory test 09/21/2011 PSA,Diagnostic 3.63 NG/ML 0-4 54 finding Laboratory test 07/17/2011 PSA,Diagnostic 13.31 NG/ML High 0-4 55 finding Urine Culture & 07/17/2011 M 56 Sensitivi <SEE NOTE> Laboratory test 07/17/2011 Hemoglobin A1c 5.5 5-7 finding CBC Auto Diff 06/13/2011 White Blood Count 5.8 CUMM 4.8-10.8 Red Cell Count 4.41 CUMM Low 4.6-6.2 Hemoglobin 14.9 g/dL 14.0-18.0 Hematocrit 44 % 42-52 Mean Corpuscular Volume 100 um3 High 80-94 Mean Corpuscular Hemoglob 34 pg High 27-31 Mean Corpuscular HGB Cone 34 g/dL 32-36 Redcell Distribution WDTH 13 % 10.5-15 Platelet Count 170 CUMM 150-450 Mean Platelet Volume 10.2 um3 7.4-10.4 Gran % 63.8 % 38-83 Lymph % 28.7 % 25-47 Mononuclear % 6.6 % 1-9 Eosinophil % 0.4 % 0-6 Basophil % 0.5 % 0-2 Abs Lymphs 1.7 1.0-4.8 Abs Mononuclear 0.4 0-0.8 Absolute Neutrophil Count 3.7 1.5-7.7 Abs Eosinophils 0 0-0.6 Abs Basophils 0 0-0.2 Comp Metabolic Panel 06/13/2011 Sodium 140 mmol/L 135-145 Potassium 4.8 mmol/L 3.5-5.0 Chloride 106 mmol/L 101-111 Co2 (Carbon Dioxide) 27.0 mmol/L 22-32 Anion Gap 7.0 mmol/L 2-11 57 Glucose 97 mg/dL 70-100 BUN 14 mg/dL 6-24 Creatinine 0.9 mg/dL 0.50-1.40 One Over Creatinine 1.11 BUN/Creatinine Ratio 15.6 8-20 Calcium 9.4 mg/dL 8.1-9.9 Total Protein 6.2 GM/DL 6.2-8.1 Albumin 4.1 GM/DL 3.2-5.2 Globulin 2.1 GM/DL 2-4 Albumin/Globulin Ratio 2.0 1-3 Bilirubin Total 1.7 mg/dL High 0.4-1.5 58 Alkaline Phosphatase 50 U/L 39-117 Alt (SGPT) 14 U/L Low 17-63 Ast (Sgot) 18 U/L 12-42 eGFR Non- 84.4 > 60 eGFR 108.6 > 60 59 Laboratory test finding 06/13/2011 Erythrocyte Sed Rate 5 MM/HR 0-40 Rheumatoid Factor < 15 IU/mL <15 60 Pattie (Antinuclear 06/13/2011 Antinuclear AB NEGATIVE Negative Antibodies) Laboratory test 06/13/2011 C Reactive Protein < 0.5 mg/dL Less Than 0.5 finding Thyroxine Free 0.87 ng/dL 0.61-1.24 TSH 1.33 MIU/ML 0.34-5.60 Lyme Disease Serology Negative Negative 61 Testosterone Free & Total 06/13/2011 Free Testosterone 6.2 ng/dL 9- 30 62 Total Testosterone 327 ng/dL 240-950 63 Laboratory test finding 05/15/2011 PSA,Diagnostic 2.96 NG/ML 0-4 64 Laboratory test finding 02/15/2011 PSA,Diagnostic 3.17 NG/ML 0-4 65 Laboratory test finding 12/27/2010 PSA,Diagnostic 9.59 NG/ML High 0-4 66 Laboratory test finding 12/07/2010 PSA,Diagnostic 50.49 NG/ML High 0-4 67 CBC Auto Diff 09/05/2010 White Blood Count 5.0 CUMM 4.8-10.8 Red Cell Count 4.33 CUMM Low 4.6-6.2 Hemoglobin 14.7 g/dL 14.0-18.0 Hematocrit 44 % 42-52 Mean Corpuscular Volume 100 um3 High 80-94 Mean Corpuscular Hemoglob 34 pg High 27-31 Mean Corpuscular HGB Cone 34 g/dL 32-36 Redcell Distribution WDTH 13 % 10.5-15 Platelet Count 147 CUMM Low 150-450 Mean Platelet Volume 10.6 um3 High 7.4-10.4 Gran % 47.7 % 38-83 Lymph % 39.5 % 25-47 Mononuclear % 9.7 % High 1-9 Eosinophil % 2.5 % 0-6 Basophil % 0.6 % 0-2 Abs Lymphs 2.0 1.0-4.8 Abs Mononuclear 0.5 0-0.8 Absolute Neutrophil Count 2.4 1.5-7.7 Abs Eosinophils 0.1 0-0.6 Abs Basophils 0 0-0.2 Lipid Profile (Trig/Chol/HDL) 09/05/2010 Triglyceride 42 mg/dL 40-200 Cholesterol 176 mg/dL Less Than 200 68 High Density Lipoprotein 68 mg/dL High 40-60 69 Cholesterol/HDL Ratio 2.59 AVERAGE 1-4.97 Low Density Lipoprotein 100 mg/dL Less Than 100 70 Comp Metabolic Panel 09/05/2010 Sodium 138 mmol/L 135-145 Potassium 4.4 mmol/L 3.5-5.0 Chloride 105 mmol/L 101-111 Co2 (Carbon Dioxide) 29.0 mmol/L 22-32 Anion Gap 4.0 mmol/L 2-11 71 Glucose 98 mg/dL 70-100 BUN 18 mg/dL 6-24 Creatinine 0.80 mg/dL 0.50-1.40 One Over Creatinine 1.20 BUN/Creatinine Ratio 22.5 High 8-20 Calcium 8.9 mg/dL 8.1-9.9 Total Protein 6.1 GM/DL Low 6.2-8.1 Albumin 3.9 GM/DL 3.2-5.2 Globulin 2.2 GM/DL 2-4 Albumin/Globulin Ratio 1.8 1-3 Bilirubin Total 1.2 mg/dL 0.4-1.5 72 Alkaline Phosphatase 47 U/L 39-117 Alt (SGPT) 15 U/L Low 17-63 Ast (Sgot) 19 U/L 12-42 eGFR Non- 97.0 > 60 eGFR 124.8 > [address] Saab's Lab Panel 09/05/2010 TSH 2.08 MIU/ML 0.34-5.60 DR Saab's Lab Panel 09/01/2009 TSH 1.46 MIU/ML 0.34-5.60 Comp Metabolic Panel 09/01/2009 Sodium 135 mmol/L 135-145 Potassium 4.7 mmol/L 3.5-5.0 Chloride 103 mmol/L 101-111 Co2 (Carbon Dioxide) 29.0 mmol/L 22-32 Anion Gap 3.0 mmol/L 2-11 74 Glucose 110 mg/dL High 70-100 75 BUN 17 mg/dL 6-24 Creatinine 1.00 mg/dL 0.50-1.40 One Over Creatinine 1.00 BUN/Creatinine Ratio 17.0 8-20 Calcium 8.6 mg/dL 8.1-9.9 76 Total Protein 5.9 GM/DL Low 6.2-8.1 Albumin 4.0 GM/DL 3.2-5.2 Globulin 1.9 GM/DL Low 2-4 Albumin/Globulin Ratio 2.1 1-3 Bilirubin Total 0.9 mg/dL 0.4-1.5 77 Alkaline Phosphatase 69 U/L 39-117 Alt (SGPT) 14 U/L Low 17-63 Ast (Sgot) 19 U/L 12-42 eGFR Non- 80.0 > 60 eGFR 96.7 > 60 78 Lipid Profile (Trig/Chol/HDL) 09/01/2009 Triglyceride 47 mg/dL 40-200 Cholesterol 170 mg/dL Less Than 200 79 High Density Lipoprotein 63 mg/dL High 40-60 80 Cholesterol/HDL Ratio 2.70 AVERAGE 1-4.97 Low Density Lipoprotein 98 mg/dL Less Than 100 81 CBC With Electronic Diff 09/01/2009 White Blood Count 5.4 CUMM 4.8-10.8 Red Cell Count 4.47 CUMM Low 4.6-6.2 Hemoglobin 15.1 g/dL 14.0-18.0 Hematocrit 44 % 42-52 Mean Corpuscular Volume 98 um3 High 80-94 Mean Corpuscular Hemoglob 34 pg High 27-31 Mean Corpuscular HGB Cone 35 g/dL 32-36 Redcell Distribution WDTH 13 % 10.5-15 Platelet Count 169 CUMM 150-450 Mean Platelet Volume 10.2 um3 7.4-10.4 Gran % 55.8 % 38-83 Lymph % 32.0 % 25-47 Mononuclear % 9.8 % High 1-9 Eosinophil % 1.5 % 0-6 Basophil % 0.9 % 0-2 Abs Lymphs 1.7 1.0-4.8 Abs Mononuclear 0.5 0-0.8 Absolute Neutrophil Count 3.0 1.5-7.7 Abs Eosinophils 0.1 0-0.6 Abs Basophils 0 0-0.2 Laboratory test finding 01/12/2009 PSA,Diagnostic 2.00 NG/ML 0-4 82, 83 CBC With Electronic Diff 08/11/2008 White Blood Count 4.6 CUMM Low 4.8- 10.8 Red Cell Count 4.54 CUMM Low 4.6-6.2 Hemoglobin 15.4 g/dL 14.0-18.0 Hematocrit 44 % 42-52 Mean Corpuscular Volume 97 um3 High 80-94 Mean Corpuscular Hemoglob 34 pg High 27-31 Mean Corpuscular HGB Cone 35 g/dL 32-36 Redcell Distribution WDTH 13 % 10.5-15 Platelet Count 178 CUMM 150-450 Mean Platelet Volume 9.6 um3 7.4-10.4 Gran % 54.9 % 38-83 Lymph % 34.5 % 25-47 Mononuclear % 8.5 % 1-9 Eosinophil % 1.2 % 0-6 Basophil % 0.9 % 0-2 Abs Lymphs 1.6 1.0-4.8 Abs Mononuclear 0.4 0-0.8 Absolute Neutrophil Count 2.5 1.5-7.7 Abs Eosinophils 0.1 0-0.6 Abs Basophils 0 0-0.2 Comp Metabolic Panel 08/11/2008 Sodium 139 mmol/L 135-145 Potassium 5.2 mmol/L High 3.5-5.0 Chloride 108 mmol/L 101-111 Co2 (Carbon Dioxide) 30.0 mmol/L 22-32 Anion Gap 1.0 mmol/L Low 2-11 84 Glucose 103 mg/dL High 70-100 85 BUN 12 mg/dL 6-24 Creatinine 0.80 mg/dL 0.50-1.40 One Over Creatinine 1.20 BUN/Creatinine Ratio 15.0 8-20 Calcium 9.3 mg/dL 8.1-9.9 86 Total Protein 5.7 GM/DL Low 6.2-8.1 Albumin 3.9 GM/DL 3.2-5.2 Globulin 1.8 GM/DL Low 2-4 Albumin/Globulin Ratio 2.2 1-3 Bilirubin Total 1.2 mg/dL 0.4-1.5 87 Alkaline Phosphatase 54 U/L 39-117 Alt (SGPT) 14 U/L Low 17-63 Ast (Sgot) 19 U/L 12-42 Lipid Profile (Trig/Chol/HDL) 08/11/2008 Triglyceride 24 mg/dL Low 40-200 Cholesterol 176 mg/dL Less Than 200 88 High Density Lipoprotein 66 mg/dL High 40-60 89 Cholesterol/HDL Ratio 2.67 AVERAGE 1-4.97 Low Density Lipoprotein 105 mg/dL High Less Than 100 90 Laboratory test finding 08/11/2008 TSH 1.07 MIU/ML 0.34-5.60 Laboratory test finding 01/01/2008 PSA,Diagnostic 1.59 NG/ML 0-4 91 CBC With Electronic Diff 07/10/2007 White Blood Count 4.7 CUMM Low 4.8- 10.8 82 Abs Basophils 0 0-0.2 82 Abs Eosinophils 0 0-0.6 82 Absolute Neutrophil Count 2.9 1.5-7.7 82 Abs Lymphs 1.3 1.0-4.8 82 Abs Mononuclear 0.4 0-0.8 82 Basophil % 0.6 % 0-2 82 Hematocrit 42 % 42-52 82 Hemoglobin 14.4 g/dL 14.0-18.0 82 Eosinophil % 0.8 % 0-6 82 Gran % 61.5 % 38-83 82 Lymph % 28.0 % 20-45 82 Mean Corpuscular HGB Cone 35 g/dL 32-36 82 Mean Corpuscular Hemoglob 33 pg High 27-31 82 Mean Corpuscular Volume 96 um3 High 80-94 82 Mean Platelet Volume 10.2 um3 7.4-10.4 82 Mononuclear % 9.1 % High 1-9 82 Platelet Count 237 CUMM 150-450 82 Red Cell Count 4.35 CUMM Low 4.6-6.2 82 Redcell Distribution WDTH 14 % 10.5-15 82 Comp Metabolic Panel 07/10/2007 One Over Creatinine 1.11 82 Anion Gap -3.0 mmol/L Low 2-11 82, 92 Albumin/Globulin Ratio 1.6 1-3 82 Albumin 3.7 GM/DL 3.2-5.2 82 Alkaline Phosphatase 51 U/L 39-117 82 Alt (SGPT) 14 U/L Low 17-63 82 Ast (Sgot) 18 U/L 12-42 82 BUN 18 mg/dL 6-24 82 Calcium 8.7 mg/dL 8.7-10.2 82 Chloride 110 mmol/L 101-111 82 Co2 (Carbon Dioxide) 31.0 mmol/L 22-32 82 Globulin 2.3 GM/DL 2-4 82 Glucose 100 mg/dL 70-105 82 Potassium 4.8 mmol/L 3.5-5.0 82 Sodium 138 mmol/L 135-145 82 Bilirubin Total 0.9 mg/dL 0.4-1.5 82 Total Protein 6.0 GM/DL Low 6.2-8.1 82 BUN/Creatinine Ratio 20.0 8-20 82 Creatinine 0.9 mg/dL 0.5-1.4 82 Laboratory test finding 07/10/2007 PSA Screening 2.29 NG/ML 0-4 82, 93 TSH 1.46 MIU/ML 0.34-5.60 82 Lipid Profile 07/10/2007 Cholesterol/HDL Ratio 2.87 AVERAGE 1-4.97 82 (Trig/Chol/HDL) Cholesterol 172 mg/dL Less Than 200 82, 94 Triglyceride 31 mg/dL Low 40-200 82 High Density Lipoprotein 60 mg/dL 40-60 82, 95 Low Density Lipoprotein 106 mg/dL High Less Than 100 82, 96 1 Desirable: <150 Borderline High: 150-199 High: 200-499 Very High: >500 2 Desirable: <200 Borderline High: 200-239 High: >239 3 Low: <40 Desirable: 40-60 High: >60 4 Desirable: <100 Near Optimal: 100-129 Borderline High: 130-159 High: 160-189 Very High: >189 5 Serum levels of PSA measured using the [employer] DXI Hybritech immunoassay should not be interpreted as absolute evidence of the presence or absence of disease. The PSA value should be used in conjunction with other pertinent clinical diagnostic procedures. The values obtained with different assay methods or kits cannot be used interchangeably. 6 [id number] 7 SEE RESULT BELOW Name: CHRIS WLALIS Artem DIGGS : [address]: Amee Banuelos MD Acct: [id number] Unit: [id number] AGE: 71 Location: [facility] Re10/07/16 SEX: M Status: DEP ER SPEC: [id number] JC: 10/07/16 [facility] DR: Amee Banuelos MD REQ: [id number] RECD: 10/07/16 STATUS: NATANAEL ESCOBAR DR: Geraldo Saab III, MD _ SOURCE: URINE SPDESC: ORDERED: Urine Culture COMMENTS: [id number] Procedure Result Reported Site Urine Culture Final 10/08/16- 1250 ML No Growth (<1,000 CFU/mL) * ML - MAIN LAB ([facility]) . END OF REPORT * ML=Testing performed at Main Lab DEPARTMENT OF PATHOLOGY, [address] [place] [address] Jimmy Prater M.D. Director [facility] # [id number] 8 Bacon Stringer: [id number] 9 Because ethnic data is not always readily available, this report includes an eGFR for both -Americans and non- Americans. The National Kidney Disease Education Program (NKDEP) does not endorse the use of the MDRD equation for patients that are not between the ages of 18 and 70, are , have extremes of body size, muscle mass, or nutritional status, or are non- or non-. According to the National Kidney Foundation, irrespective of diagnosis, the stage of the disease is based on the level of kidney function: Stage Description GFR(mL/min/1.73 m(2)) 1 Kidney damage with normal or decreased GFR 90 2 Kidney damage with mild decrease in GFR 60-89 3 Moderate decrease in GFR 30-59 4 Severe decrease in GFR 15-29 5 Kidney failure <15 (or dialysis) 10 >100 to <200 pg/mL: likely compensated congestive heart failure (CHF) 200 to 400 pg/mL: likely moderate CHF >400 pg/mL: likely moderate to severe CHF 11 Desirable <150 Borderline high 150-199 High 200-499 Very High >500 12 Desirable <200 Borderline high 200-239 High >239 13 Low <40 Desirable: 40-60 High: >60 14 Desirable: <100 mg/dL Near Optimal: 100-129 mg/dL Borderline High: 130-159 mg/dL High: 160-189 mg/dL Very High: >189 mg/dL 15 Because ethnic data is not always readily available, this report includes an eGFR for both -Americans and non- Americans. The National Kidney Disease Education Program (NKDEP) does not endorse the use of the MDRD equation for patients that are not between the ages of 18 and 70, are , have extremes of body size, muscle mass, or nutritional status, or are non- or non-. According to the National Kidney Foundation, irrespective of diagnosis, the stage of the disease is based on the level of kidney function: Stage Description GFR(mL/min/1.73 m(2)) 1 Kidney damage with normal or decreased GFR 90 2 Kidney damage with mild decrease in GFR 60-89 3 Moderate decrease in GFR 30-59 4 Severe decrease in GFR 15-29 5 Kidney failure <15 (or dialysis) 16 *Ascorbic acid is present which may interfere with detection of blood. 17 >100 to <200 pg/mL: likely compensated congestive heart failure (CHF) 200 to 400 pg/mL: likely moderate CHF >400 pg/mL: likely moderate to severe CHF 18 [facility] Severe Sepsis and Septic Shock Management Bundle Measure requires all lactic acids initially measuring >2.0 mmol/L be repeated. 19 Because ethnic data is not always readily available, this report includes an eGFR for both -Americans and non- Americans. The National Kidney Disease Education Program (NKDEP) does not endorse the use of the MDRD equation for patients that are not between the ages of 18 and 70, are , have extremes of body size, muscle mass, or nutritional status, or are non- or non-. According to the National Kidney Foundation, irrespective of diagnosis, the stage of the disease is based on the level of kidney function: Stage Description GFR(mL/min/1.73 m(2)) 1 Kidney damage with normal or decreased GFR 90 2 Kidney damage with mild decrease in GFR 60-89 3 Moderate decrease in GFR 30-59 4 Severe decrease in GFR 15-29 5 Kidney failure <15 (or dialysis) 20 Acute inflammation: >10.00 21 Reference Range and Interpretation: TnI (ng/mL) Interpretation Less Than 0.03 ng/mL Not supportive of diagnosis of ND 0.03 - 0.50 ng/mL Indeterminate: suggest serial studies if clinically indicated. Greater than 0.5 ng/mL Consistent with diagnosis of ND 22 Serum levels of PSA measured using the [employer] DXI Hybritech immunoassay should not be interpreted as absolute evidence of the presence or absence of disease. The PSA value should be used in conjunction with other pertinent clinical diagnostic procedures. The values obtained with different assay methods or kits cannot be used interchangeably. 23 CALL RESULTS TO TODAY [phone] 24 Because ethnic data is not always readily available, this report includes an eGFR for both -Americans and non- Americans. The National Kidney Disease Education Program (NKDEP) does not endorse the use of the MDRD equation for patients that are not between the ages of 18 and 70, are , have extremes of body size, muscle mass, or nutritional status, or are non- or non-. According to the [employer], irrespective of diagnosis, the stage of the disease is based on the level of kidney function: Stage Description GFR(mL/min/1.73 m(2)) 1 Kidney damage with normal or decreased GFR 90 2 Kidney damage with mild decrease in GFR 60-89 3 Moderate decrease in GFR 30-59 4 Severe decrease in GFR 15-29 5 Kidney failure <15 (or dialysis) 25 Reference Range and Interpretation: TnI (ng/mL) Interpretation Less Than 0.03 ng/mL Not supportive of diagnosis of ND 0.03 - 0.50 ng/mL Indeterminate: suggest serial studies if clinically indicated. Greater than 0.5 ng/mL Consistent with diagnosis of ND 26 CALL RESULTS TO TODAY [phone] 27 >100 to <200 pg/mL: likely compensated congestive heart failure (CHF) 200 to 400 pg/mL: likely moderate CHF >400 pg/mL: likely moderate to severe CHF 28 Because ethnic data is not always readily available, this report includes an eGFR for both -Americans and non- Americans. The National Kidney Disease Education Program (NKDEP) does not endorse the use of the MDRD equation for patients that are not between the ages of 18 and 70, are , have extremes of body size, muscle mass, or nutritional status, or are non- or non-. According to the National Kid[employer], irrespective of diagnosis, the stage of the disease is based on the level of kidney function: Stage Description GFR(mL/min/1.73 m(2)) 1 Kidney damage with normal or decreased GFR 90 2 Kidney damage with mild decrease in GFR 60-89 3 Moderate decrease in GFR 30-59 4 Severe decrease in GFR 15-29 5 Kidney failure <15 (or dialysis) 29 Desirable <150 Borderline high 150-199 High 200-499 Very High >500 30 Desirable <200 Borderline high 200-239 High >239 31 Low <40 Desirable: 40-60 High: >60 32 Desirable: <100 mg/dL Near Optimal: 100-129 mg/dL Borderline High: 130-159 mg/dL High: 160-189 mg/dL Very High: >189 mg/dL 33 FASTING 34 FASTING 35 Because ethnic data is not always readily available, this report includes an eGFR for both -Americans and non- Americans. The National Kidney Disease Education Program (NKDEP) does not endorse the use of the MDRD equation for patients that are not between the ages of 18 and 70, are , have extremes of body size, muscle mass, or nutritional status, or are non- or non-. According to the National Kidney Foundation, irrespective of diagnosis, the stage of the disease is based on the level of kidney function: Stage Description GFR(mL/min/1.73 m(2)) 1 Kidney damage with normal or decreased GFR 90 2 Kidney damage with mild decrease in GFR 60-89 3 Moderate decrease in GFR 30-59 4 Severe decrease in GFR 15-29 5 Kidney failure <15 (or dialysis) 36 Therapeutic target for the treatment of diabetes Mellitus patients is <7% HBA1C, and in selective patients <6.0%.Please refer to [place] [employer] Diabetic care guidelines for further information. 37 Desirable <150 Borderline high 150-199 High 200-499 Very High >500 38 Desirable <200 Borderline high 200-239 High >239 39 Low <40 Desirable: 40-60 High: >60 40 Desirable <100 Near Optimal 100-129 Borderline high 130-159 High 160-189 Very High >189 41 Serum levels of PSA measured using the [employer] DXI Hybritech immunoassay should not be interpreted as absolute evidence of the presence or absence of disease. The PSA value should be used in conjunction with other pertinent clinical diagnostic procedures. The values obtained with different assay methods or kits cannot be used interchangeably. 42 Because ethnic data is not always readily available, this report includes an eGFR for both -Americans and non- Americans. The National Kidney Disease Education Program (NKDEP) does not endorse the use of the MDRD equation for patients that are not between the ages of 18 and 70, are , have extremes of body size, muscle mass, or nutritional status, or are non- or non-. According to the National Kidney Foundation, irrespective of diagnosis, the stage of the disease is based on the level of kidney function: Stage Description GFR(mL/min/1.73 m(2)) 1 Kidney damage with normal or decreased GFR 90 2 Kidney damage with mild decrease in GFR 60-89 3 Moderate decrease in GFR 30-59 4 Severe decrease in GFR 15-29 5 Kidney failure <15 (or dialysis) 43 HDL Interpretation: Undesirable: High Risk: Less than 40 MG/DL Desirable: Low Risk: Greater than 60 MG/DL 44 LDL Interpretation: Low Risk Optimal Level: LDL Less than 100 MG/DL Near or Above Optimal: LDL 100-129 MG/DL Borderline High Risk: LDL 130-159 MG/DL High Risk: LDL 160-189 MG/DL Very High Risk: LDL Greater than 189 MG/DL 45 PT IS FASTING 46 PT IS FASTING 47 Serum levels of PSA measured using the [employer] DXI Hybritech immunoassay should not be interpreted as absolute evidence of the presence or absence of disease. The PSA value should be used in conjunction with other pertinent clinical diagnostic procedures. The values obtained with different assay methods or kits cannot be used interchangeably. 48 Anion gap measurement may be of limited value in the presence of any alkalosis, especially in a combined acid base disorder. . 49 A metabolite of Naproxen, O-desmethylnaproxen, has been shown to interfere with the Jendrassik-Kevin method for measuring total bilirubin. Samples from patients who have taken Naproxen have shown spurious elevation in total bilirubin levels. 50 Because ethnic data is not always readily available, this report includes an eGFR for both -Americans and non- Americans. The National Kidney Disease Education Program (NKDEP) does not endorse the use of the MDRD equation for patients that are not between the ages of 18 and 70, are , have extremes of body size, muscle mass, or nutritional status, or are non- or non-. According to the National Kidney Foundation, irrespective of diagnosis, the stage of the disease is based on the level of kidney function: Stage Description GFR(mL/min/1.73 m(2)) 1 Kidney damage with normal or decreased GFR 90 2 Kidney damage with mild decrease in GFR 60-89 3 Moderate decrease in GFR 30-59 4 Severe decrease in GFR 15-29 5 Kidney failure <15 (or dialysis) 51 CHOLESTEROL INTERPRETATION: Desirable: Less than 200 MG/DL Borderline-High Risk: 200-239 MG/DL High-Risk: 240 MG/DL and over 52 HDL INTERPRETATION: Undesirable: High Risk: Less than 40 MG/DL Desirable: Low Risk: Greater than 60 MG/DL 53 LDL INTERPRETATION: Low Risk Optimal Level: LDL Less than 100 MG/DL Near or Above Optimal: LDL 100-129 MG/DL Borderline High Risk: LDL 130-159 MG/DL High Risk: LDL 160-189 MG/DL Very High Risk: LDL Greater than 189 MG/DL 54 * SERUM LEVELS OF PSA MEASURED USING THE [employer] ACCESS HYBRITECH IMMUNOASSAY SHOULD NOT BE INTERPRETED ABSOLUTE EVIDENCE OF THE PRESENCE OR ABSENCE OF DISEASE. THE PSA VALUE SHOULD BE USED IN CONJUNCTION WITH OTHER PERTINENT CLINICAL DIAGNOSTIC PROCEDURES. The values obtained with different assay methods or kits cannot be used interchangeably. 55 * SERUM LEVELS OF PSA MEASURED USING THE [employer] ACCESS HYBRITECH IMMUNOASSAY SHOULD NOT BE INTERPRETED ABSOLUTE EVIDENCE OF THE PRESENCE OR ABSENCE OF DISEASE. THE PSA VALUE SHOULD BE USED IN CONJUNCTION WITH OTHER PERTINENT CLINICAL DIAGNOSTIC PROCEDURES. The values obtained with different assay methods or kits cannot be used interchangeably. 56 RUN DATE: 07/19/11 [facility] NMI LIVE PAGE 1 RUN TIME: 1149 Specimen Inquiry RUN USER: INTERFACE Name: CHRIS WALLIS JR Status: REG REF Re07/17/11 Age/Sex: 66/M Unit#: [id number] Location: [facility] : 45 SPEC #: [id number] JC: 07/17/11 STATUS: COMP REQ #: [id number] RECD: 07/17/[address]: Geraldo Saab III, MD SOURCE: URINE ENTR: 07/17/[address]: FRED: ORDERED: URINE C S QUERIES: MEDENT REQUISITION # [id number] ACT WKST: UR 07/19/11 #1 Procedure Result Verified Site > URINE CULTURE SENSITIVI Final -1148 ML Organism 1 ESCHERICHIA COLI COLONY COUNT >100,000 ORGANISMS/ML (MANY) 1. ESCHERICHIA COLI RX M.I.C. ------ --------- AMIKACIN S <=2 LEVOFLOXACIN S <=0.12 AMPICILLIN S <=2 CEFAZOLIN S <=4 CEFTRIAXONE S <=1 CIPROFLOXACIN S <=0.25 GENTAMICIN S <=1 TIGECYCLINE S <=0.5 CEFTAZIDIME S <=1 IMIPENEM S <=1 NITROFURANTOIN S <=16 TRIMETH-SULFA S <=20 *These antibiotics are not available in the [facility] Formulary. Contact the Microbiology Department for any additional antibiotic reporting. [facility] State Permit #[id number] [address] [place] [address] DEPARTMENT OF PATHOLOGY, [address] [place] [address] [facility] Permit #[id number] Jimmy Prater M.D. Director Michelle Nelson M.D. Professor Of Communication Arts 57 Anion gap measurement may be of limited value in the presence of any alkalosis, especially in a combined acid base disorder. . 58 A metabolite of Naproxen, O-desmethylnaproxen, has been shown to interfere with the Jendrassik-[place] method for measuring total bilirubin. Samples from patients who have taken Naproxen have shown spurious elevation in total bilirubin levels. 59 Because ethnic data is not always readily available, this report includes an eGFR for both -Americans and non- Americans. The National Kidney Disease Education Program (NKDEP) does not endorse the use of the MDRD equation for patients that are not between the ages of 18 and 70, are , have extremes of body size, muscle mass, or nutritional status, or are non- or non-. According to the National Kidney Foundation, irrespective of diagnosis, the stage of the disease is based on the level of kidney function: Stage Description GFR(mL/min/1.73 m(2)) 1 Kidney damage with normal or decreased GFR 90 2 Kidney damage with mild decrease in GFR 60-89 3 Moderate decrease in GFR 30-59 4 Severe decrease in GFR 15-29 5 Kidney failure <15 (or dialysis) 60 Test Performed by: [facility] Dpt of Lab Med and Pathology [address] [place] [address] Mail Handler: Kobe Jimenez III, M.D. 61 Serologic response to B. burgdorferi infection is not detected, but cannot rule out early infection during which low or undetectable antibody levels to B. burgdorferi may be present. If clinically indicated, a new serum specimen should be submitted in 7-14 days. Test Performed by: [facility] Dpt of Lab Med and Pathology [address] [place] [address] Mail Handler: Kobe Jimenez III, M.D. 62 Test Performed by: [facility] Dpt of Lab Med and Pathology [address] [place] [address] Mail Handler: Kobe Jimenez III, M.D. 63 Test Performed by: [facility] Dpt of Lab Med and Pathology [address] [place] [address] Mail Handler: Kobe Jimenez III, M.D. 64 * SERUM LEVELS OF PSA MEASURED USING THE [employer] ACCESS HYBRITECH IMMUNOASSAY SHOULD NOT BE INTERPRETED ABSOLUTE EVIDENCE OF THE PRESENCE OR ABSENCE OF DISEASE. THE PSA VALUE SHOULD BE USED IN CONJUNCTION WITH OTHER PERTINENT CLINICAL DIAGNOSTIC PROCEDURES. The values obtained with different assay methods or kits cannot be used interchangeably. 65 * SERUM LEVELS OF PSA MEASURED USING THE [employer] ACCESS HYBRITECH IMMUNOASSAY SHOULD NOT BE INTERPRETED ABSOLUTE EVIDENCE OF THE PRESENCE OR ABSENCE OF DISEASE. THE PSA VALUE SHOULD BE USED IN CONJUNCTION WITH OTHER PERTINENT CLINICAL DIAGNOSTIC PROCEDURES. 66 * SERUM LEVELS OF PSA MEASURED USING THE [employer] ACCESS HYBRITECH IMMUNOASSAY SHOULD NOT BE INTERPRETED ABSOLUTE EVIDENCE OF THE PRESENCE OR ABSENCE OF DISEASE. THE PSA VALUE SHOULD BE USED IN CONJUNCTION WITH OTHER PERTINENT CLINICAL DIAGNOSTIC PROCEDURES. 67 * SERUM LEVELS OF PSA MEASURED USING THE [employer]UA DAV[employer] ACCESS HYBRITECH IMMUNOASSAY SHOULD NOT BE INTERPRETED ABSOLUTE EVIDENCE OF THE PRESENCE OR ABSENCE OF DISEASE. THE PSA VALUE SHOULD BE USED IN CONJUNCTION WITH OTHER PERTINENT CLINICAL DIAGNOSTIC PROCEDURES. 68 CHOLESTEROL INTERPRETATION: Desirable: Less than 200 MG/DL Borderline-High Risk: 200-239 MG/DL High-Risk: 240 MG/DL and over 69 HDL INTERPRETATION: Undesirable: High Risk: Less than 40 MG/DL Desirable: Low Risk: Greater than 60 MG/DL 70 LDL INTERPRETATION: Low Risk Optimal Level: LDL Less than 100 MG/DL Near or Above Optimal: LDL 100-129 MG/DL Borderline High Risk: LDL 130-159 MG/DL High Risk: LDL 160-189 MG/DL Very High Risk: LDL Greater than 189 MG/DL 71 Anion gap measurement may be of limited value in the presence of any alkalosis, especially in a combined acid base disorder. . 72 A metabolite of Naproxen, O-desmethylnaproxen, has been shown to interfere with the Jendrassik-Kevin method for measuring total bilirubin. Samples from patients who have taken Naproxen have shown spurious elevation in total bilirubin levels. 73 Because ethnic data is not always readily available, this report includes an eGFR for both -Americans and non- Americans. The National Kidney Disease Education Program (NKDEP) does not endorse the use of the MDRD equation for patients that are not between the ages of 18 and 70, are , have extremes of body size, muscle mass, or nutritional status, or are non- or non-. According to the National Kidney Foundation, irrespective of diagnosis, the stage of the disease is based on the level of kidney function: Stage Description GFR(mL/min/1.73 m(2)) 1 Kidney damage with normal or decreased GFR 90 2 Kidney damage with mild decrease in GFR 60-89 3 Moderate decrease in GFR 30-59 4 Severe decrease in GFR 15-29 5 Kidney failure <15 (or dialysis) 74 Anion gap measurement may be of limited value in the presence of any alkalosis, especially in a combined acid base disorder. . 75 Note change in reference range as of 11/14/07. The change was based on recommendations from the [place] [employer]. 76 Please note change in reference range effective 07 . 77 A metabolite of Naproxen, O-desmethylnaproxen, has been shown to interfere with the Jendrassik-Kevin method for measuring total bilirubin. Samples from patients who have taken Naproxen have shown spurious elevation in total bilirubin levels. 78 Because ethnic data is not always readily available, this report includes an eGFR for both -Americans and non- Americans. The National Kidney Disease Education Program (NKDEP) does not endorse the use of the MDRD equation for patients that are not between the ages of 18 and 70, are , have extremes of body size, muscle mass, or nutritional status, or are non- or non-. According to the National Kidney Foundation, irrespective of diagnosis, the stage of the disease is based on the level of kidney function: Stage Description GFR(mL/min/1.73 m(2)) 1 Kidney damage with normal or decreased GFR 90 2 Kidney damage with mild decrease in GFR 60-89 3 Moderate decrease in GFR 30-59 4 Severe decrease in GFR 15-29 5 Kidney failure <15 (or dialysis) 79 CHOLESTEROL INTERPRETATION: Desirable: Less than 200 MG/DL Borderline-High Risk: 200-239 MG/DL High-Risk: 240 MG/DL and over 80 HDL INTERPRETATION: Undesirable: High Risk: Less than 40 MG/DL Desirable: Low Risk: Greater than 60 MG/DL 81 LDL INTERPRETATION: Low Risk Optimal Level: LDL Less than 100 MG/DL Near or Above Optimal: LDL 100-129 MG/DL Borderline High Risk: LDL 130-159 MG/DL High Risk: LDL 160-189 MG/DL Very High Risk: LDL Greater than 189 MG/DL 82 PATIENT MAY HAVE RESULTS PER DOCTOR'S AUTHORIZATION. Questions regarding this report should be directed to your doctor. 83 * SERUM LEVELS OF PSA MEASURED USING THE [employer] ACCESS HYBRITECH IMMUNOASSAY SHOULD NOT BE INTERPRETED ABSOLUTE EVIDENCE OF THE PRESENCE OR ABSENCE OF DISEASE. THE PSA VALUE SHOULD BE USED IN CONJUNCTION WITH OTHER PERTINENT CLINICAL DIAGNOSTIC PROCEDURES. 84 Anion gap measurement may be of limited value in the presence of any alkalosis, especially in a combined acid base disorder. . 85 Note change in reference range as of 11/14/07. The change was based on recommendations from the [place] [employer]. 86 Please note change in reference range effective 07 . 87 A metabolite of Naproxen, O-desmethylnaproxen, has been shown to interfere with the Jendrassik-Kevin method for measuring total bilirubin. Samples from patients who have taken Naproxen have shown spurious elevation in total bilirubin levels. 88 CHOLESTEROL INTERPRETATION: Desirable: Less than 200 MG/DL Borderline-High Risk: 200-239 MG/DL High-Risk: 240 MG/DL and over 89 HDL INTERPRETATION: Undesirable: High Risk: Less than 40 MG/DL Desirable: Low Risk: Greater than 60 MG/DL 90 LDL INTERPRETATION: Low Risk Optimal Level: LDL Less than 100 MG/DL Near or Above Optimal: LDL 100-129 MG/DL Borderline High Risk: LDL 130-159 MG/DL High Risk: LDL 160-189 MG/DL Very High Risk: LDL Greater than 189 MG/DL 91 * SERUM LEVELS OF PSA MEASURED USING THE [employer] ACCESS HYBRITECH IMMUNOASSAY SHOULD NOT BE INTERPRETED ABSOLUTE EVIDENCE OF THE PRESENCE OR ABSENCE OF DISEASE. THE PSA VALUE SHOULD BE USED IN CONJUNCTION WITH OTHER PERTINENT CLINICAL DIAGNOSTIC PROCEDURES. 92 Anion gap measurement may be of limited value in the presence of any alkalosis, especially in a combined acid base disorder. . 93 * SERUM LEVELS OF PSA MEASURED USING THE [employer] ACCESS HYBRITECH IMMUNOASSAY SHOULD NOT BE INTERPRETED ABSOLUTE EVIDENCE OF THE PRESENCE OR ABSENCE OF DISEASE. THE PSA VALUE SHOULD BE USED IN CONJUNCTION WITH OTHER PERTINENT CLINICAL DIAGNOSTIC PROCEDURES. 94 CHOLESTEROL INTERPRETATION: Desirable: Less than 200 MG/DL Borderline-High Risk: 200-239 MG/DL High-Risk: 240 MG/DL and over 95 HDL INTERPRETATION: Undesirable: High Risk: Less than 40 MG/DL Desirable: Low Risk: Greater than 60 MG/DL 96 LDL INTERPRETATION: Low Risk Optimal Level: LDL Less than 100 MG/DL Near or Above Optimal: LDL 100-129 MG/DL Borderline High Risk: LDL 130-159 MG/DL High Risk: LDL 160-189 MG/DL Very High Risk: LDL Greater than 189 MG/DL Procedures Date CPT Code Description Status 09/04/2016 Colonoscopy Completed 06/20/2016 54274 EKG Tracing & Interpretation Completed 04/07/2016 79340 EKG Tracing & Interpretation Completed 01/05/2016 94485 EKG Tracing & Interpretation Completed 04/21/2015 93011 EKG Tracing & Interpretation Completed 12/16/2014 99780 ECHO Transthoracic, Real-Time 2D With Doppler And Color Completed Flow 12/08/2014 78854 EKG Tracing & Interpretation Completed 12/04/2014 36028 Treadmill Interp/Report Only Completed 12/04/2014 98718 Stress Test Supervsn W/Out I/R Completed 09/24/2014 52971 Pulmonary Function><Bronchodil Completed 09/24/2014 87696 Diffusing Capacity Completed 09/24/2014 75633 Plethysmography Determination Lung Volumes & Per Completed Airway Resist 09/09/2014 67282 ECHO Transthoracic, Real-Time 2D With Doppler And Color Completed Flow 09/07/2014 83583 EKG Tracing & Interpretation Completed 06/18/2014 95420 Repair Hernia Inguinal > 5Yrs, Reducible Completed 06/18/2014 27604 Repair Hernia Umbilical > 5 Yrs, Reducible Completed 06/12/2014 43463 ECHO Transthoracic, Real-Time 2D With Doppler And Color Completed Flow 05/29/2014 13153 Treadmill Interp/Report Only Completed 05/29/2014 23811 Stress Test Supervsn W/Out I/R Completed 04/21/2014 83584 EKG Tracing & Interpretation Completed 09/24/2013 85781 Holter Monitoring 24 HR New Completed 09/09/2013 59929 ECHO Stress Test Incl Perf Contiuous ekg Monitoring Completed W/Phys Superv 09/05/2013 25136 ECHO Transthoracic, Real-Time 2D With Doppler And Color Completed Flow 08/08/2013 48956 EKG Tracing & Interpretation Completed 05/30/2012 88861 EKG Tracing & Interpretation Completed 11/23/2011 55293 Treadmill Interp/Report Only Completed 11/23/2011 50801 Stress Test Supervsn W/Out I/R Completed 11/22/2011 47056 ECHO Stress Test Incl Perf Contiuous ekg Monitoring Completed W/Phys Superv 11/22/2011 23591 ECHO Stress Test Incl Perf Contiuous ekg Monitoring Completed W/Phys Superv 08/24/2011 82322 Color Flow Doppler/Interp & Reprt Completed 08/24/2011 36485 Pulse Wave/Continuous-Interp.RPT Completed 08/24/2011 36190 ECHO Transthorasic Realtime 2D W Doppler & Color Completed Flow Hosp 08/17/2011 17511 EKG Tracing & Interpretation Completed 09/22/2005 Colonoscopy Completed Encounters Type Date Location Provider CPT E/M Dx Office Visit 12/29/2016 [facility] Ck Alaniz, 91248 G20 3:30p M.Jon G47.30 Office Visit 07/11/2016 9:40a [facility] [place] [address] M79.672 [facility] Office Visit 06/20/2016 10:20a [facility] Nahun Clay, 85019 G20 Jsoue G47.30 R60.9 Office Visit 06/07/2016 3:30p [facility], 69304 G20 [facility] M.D. Office Visit 05/18/2016 10:40a [facility] Kusum Bermudez N.P. 34101 J20.9 - [place] J01.90 Office Visit 05/05/2016 11:45a [facility] Shira Loredo, 34139 G47.33 [facility] SOLANGE, RN, [employer] [employer]- Office Visit 04/07/2016 9:40a [facility] Geraldo Saab, 12899 Z00.01 - Gabriel Salas G20 G47.30 E78.00 N40.0 R60.0 Office Visit 03/10/2016 11:00a [facility] Geraldo Saab, 52551 J06.9 - Gabriel Salas Office Visit 01/28/2016 9:00a [facility] Maxi Kaiser, 01043 D17.21 - Gabriel Salas R29.6 R22.31 Office Visit 01/05/2016 11:20a [facility] Geraldo Saab, 01527 Z01.810 - Gabriel Salas G20 G47.30 Office Visit 11/24/2015 9:15a [facility] Alaniz 40069 G20 Josue Office Visit 06/01/2015 2:45p [facility] Ck Alaniz 19635 G20 [facility] M.DPriti Office Visit 04/21/2015 11:40a [facility] Nahun Holder 01615 G20 Josue Clay E78.0 R07.9 R06.00 R94.31 Office Visit 02/10/2015 3:15p [facility] 09152 G20 [facility] M.D. Office Visit 12/24/2014 2:40p [facility] Nahun Clay 21419 E78.0 Josue R07.9 R06.00 R00.2 Office Visit 12/03/2014 2:00p [facility] HEATHER Maqruez 89303 426.4 272.0 786.50 427.69 Office Visit 12/02/2014 4:00p [facility] Geraldo Saab, 45824 786.50 - [place] Salas Office Visit 11/18/2014 2:30p [facility], 92664 327.23 [facility] M.DPriti 332.0 Office Visit 10/06/2014 10:15a [facility] Shira Loredo, 18345 327.23 [facility] DNP, RN, [facility]- Office Visit 10/01/2014 2:45p [facility] [place] [address] 786.09 [facility] Office Visit 09/07/2014 3:40p [facility] Nahun Clay, 58064 786.09 M.DPriti 794.31 426.4 Office Visit 09/03/2014 1:00p [facility] Jsoef Malik M.D. 78504 786.05 [facility] Office Visit 08/31/2014 2:40p [facility] - Geraldo Saab, 64750 V06.1 [place] Salas V03.82 786.05 Office Visit 05/29/2014 11:30a [facility] Nahun Clay, 83535 550.90 Josue 272.0 426.4 794.31 414.01 Office Visit 05/21/2014 4:00p [facility] Geraldo Saab, 29037 550.90 - [place] Salas Office Visit 05/07/2014 4:00p [facility] Geraldo Saab, 08072 550.90 - [place] Salas Office Visit 04/28/2014 2:45p [facility], 73708 332.0 [facility] M.DPriti Office Visit 04/23/2014 9:20a [facility] Geraldo Saab, 50035 465.9 - [place] Salas 332.0 Office Visit 04/21/2014 3:00p [facility] Nahun Clay M.D. 65250 272.0 794.31 426.4 Office Visit 03/02/2014 2:20p [facility] Geraldo Saab, 06068 465.9 - [place] Salas Office Visit 10/29/2013 1:45p [facility], 98876 332.0 [facility] M.D. Office Visit 08/08/2013 3:20p [facility] Nahun Clay, 60701 794.31 M.DPriti 332.0 272.0 414.01 782.3 Office Visit 07/15/2013 3:00p [facility], 21922 332.0 [facility] M.D. Office Visit 06/23/2013 11:00a [facility] Geraldo Saab, 63720 790.21 - [place] Salas 780.57 332.0 272.0 Office Visit 01/23/2013 10:30a [facility] Samra Espinoza, N.P. 69070 477.9 - [place] 465.9 Office Visit 01/15/2013 2:45p [facility], 17468 332.0 [facility] M.D. Office Visit 08/27/2012 1:00p [facility] Geraldo Saab, 39347 553.1 - [place] Alejo.DPriti Office Visit 08/02/2012 10:20a [facility] Geraldo Saab, 13347 724.5 - [place] Salas Office Visit 07/16/2012 2:45p [facility], 95833 332.0 [facility] M.D. Office Visit 06/19/2012 2:40p [facility] Geraldo Saab, 21898 719.46 - [place] Alejo.Jon Office Visit 06/10/2012 10:40a [facility] Geraldo Saab, 03445 381.19 - [place] M.DPriti Office Visit 05/30/2012 10:20a [facility] Nahun Clay, 08407 786.09 MPritiDPriti 426.52 794.31 Office Visit 05/03/2012 11:20a [facility] Geraldo Saab, 11033 465.9 - [place] M.D. 382.9 Office Visit 04/03/2012 3:40p [facility] Geraldo Saab, 09998 726.19 - [place] M.D. Office Visit 02/21/2012 1:20p [facility] Geraldo Saab, 82826 786.09 - [place] M.D. Office Visit 01/16/2012 2:30p [facility], 36720 332.0 [facility] M.D. Office Visit 12/20/2011 10:00a [facility] Geraldo Saab, 46431 780.79 - [place] M.D. 786.09 600.20 Office Visit 11/24/2011 11:15a [facility], 08443 780.93 [facility] M.D. 780.79 Office Visit 11/22/2011 11:30a [facility] Nahun Clay, 76443 786.05 M.DPriti 794.31 780.79 Office Visit 11/01/2011 1:00p [facility] Geraldo Saab, 39759 786.05 - [place] M.D. 780.93 Office Visit 08/17/2011 1:40p [facility] Geraldo Saab, 49743 786.09 - [place] M.D. Office Visit 07/17/2011 1:00p [facility] Geraldo Saab, 14715 599.0 - [place] M.DPriti 790.21 Office Visit 07/07/2011 11:40a [facility] Geraldo Saab, 05472 780.79 - [place] M.D. 784.1 Office Visit 06/20/2011 10:40a [facility] Geraldo Saab, 21842 780.79 - [place] M.D. Office Visit 06/13/2011 1:40p [facility] Geraldo Saab, 53867 780.79 - [place] M.D. Office Visit 04/19/2011 10:00a [facility] Geraldo Saab, 66604 719.46 [place] Office Visit 12/06/2010 10:00a DO Not Use [facility], 59347 601.1 [facility] M.D. Office Visit 11/24/2010 1:00p DO Not Use [facility] At [facility], 74191 V70.0 [facility].D. 790.21 477.9 723.1 600.20 Office Visit 07/28/2010 4:00p DO Not Use [facility], 07018 726.19 [facility].D. 780.79 V03.82 Office Visit 04/15/2010 9:20a DO Not Use [facility], 46220 465.9 [facility].D. Office Visit 11/25/2009 3:40p DO Not Use [facility], 26000 604.90 [facility] M.D. Office Visit 09/09/2009 9:00a DO Not Use [facility], 31896 V70.0 [facility].D. 790.21 600.20 Office Visit 05/31/2009 3:20p DO Not Use [facility], 17798 300.02 [facility].D. 796.2 Office Visit 05/03/2009 2:40p DO Not Use [facility], 34831 465.9 [facility].D. 780.79 Office Visit 12/17/2008 11:15a DO Not Use [facility], 34907 465.9 [facility] M.D. Office Visit 09/07/2008 9:00a [facility], 42267 V05.8 [facility].D. V70.0 602.9 Office Visit 12/20/2007 10:15a [facility], 95438 465.9 [facility] M.D. Office Visit 11/27/2007 10:30a [facility], 97385 723.1 [facility].D. 780.52 Office Visit 09/05/2007 9:30a [facility], 78005 724.2 [facility] M.DPriti 602.9 477.9 V70.0 Office Visit 06/20/2007 3:15p [facility], 14344 465.9 [facility] M.Jon Office Visit 03/29/2007 9:15a [facility], 63542 724.2 [facility] M.Jon Plan of Care Future Appointment(s):05/22/2017 11:40 am - Nahun Clay M.D. at [facility]07/11/2017 3:45 pm - Ck Alaniz M.D. at [facility]04/12/2017 - Geraldo Saab M.D.M26.623 Arthralgia of bilateral temporomandibular jointComments:New bilat TMJ pains over the past few months; dental recheck advised
--- OUTSIDE RECORDS SUMMARY | 2017-05-02 07:19 | XMS REPORT ---
:1945 External Reference #:[id number] Author Organization [facility] Address [address] [address] Phone [phone] Care Team Providers Name Role Phone Geraldo Saab III, MD Primary Care Physician Unavailable Payers Type Date Identification Numbers Payment Provider Subscriber Medicare Primary Effective: Policy Number: Medicare Chris Wallis JR 2009 [id number] PayID: [id number] [address] [place] [address] Medigap Part B Policy Number: [id number] [facility] Chris Wallis JR Group Number: [id number] [address] PayID: [id number] [place] [address] Problems Date Description Provider Status Onset: 11/24/2010 [...] of adult Shira Loredo DNP, RN, Active [facility] Social History Type Date Description Comments Marital [...] 25-100mg 270ta 1 po 3x a Ck Bruno opa 2015 day Josue Alaniz Prozac 05/31/ [...] M79.672 John 2016 - grams of Gomez, COLLECTION ADVISOR 04/09/ gel twice 2018 daily to the [...] Bruno 2014 - ml at 8 Am [place], and at no M.D. 2014 pt states [...] ml Ck Bruno 2012 - its at [facility], 05/06/ M.D. 2013 Amantadine HCL 07/16/ Hx Capsules 100mg 90cap 1 by mouth Melia 2012 - s every Gnadt, COLLECTION ADVISOR 09/30/ morning on 2014 hold as of [...] 604.90 Geraldo Cruz 2009 - s Katiana, M.DPriti 2009 Ibuprofen 05/03/ Hx Tablets 600mg 90tab [...] qhs Texture 2014 Nystatin 00/ Hx Cream [id number] 60g topically Unknown 0000 - t/GM bid [...] CPT Code Status Date Vaccine Lot # 32910 Given 01/14/2016 Fluzone High Dose 76851 Given 08/31/2014 Tdap - Tetanus/Diptheria/Acellular Pertussis [id number] 90201 Given 08/31/2014 Pneumococcal Conjugate Vaccine 13 Valent For [id number] Intramuscular Use 77146 Given 07/28/2010 Pneumonia Vaccine [id number] 66009 Given 01/14/2009 Influenza Virus 3Yrs & Over 13165 Given 09/07/2008 Zoster (Zostavax) 36100 Given 01/01/2008 Influenza Virus 3Yrs & Over 78842 Given 07/13/2004 Td (History By Patient) Vital Signs Date Vital Result Comment 04/10/2017 Height 68.25 inches 5'8.25" Weight 190.00 [...] Poc Ketone, Urine Negative Negative Poc Specific Zebulon, Urine 1.025 1.010-1.030 Poc Blood, Urine Trace-intact [...] Color Yellow Urine Appearance Cloudy Urine Specific Zebulon 1.023 1.010-1.030 Urine pH 5.0 5-9 Urine [...] levels of PSA measured using the [facility] DXI Hybritech immunoassay should not be interpreted as absolute evidence of the presence or absence of disease. The PSA value should be used in conjunction with other pertinent clinical diagnostic procedures. The values obtained with different assay methods or kits cannot be used interchangeably. 6 [id number] 7 SEE RESULT BELOW Name: CHRIS WALLIS : [address]: Amee Banuelos MD Acct: [id number] Unit: [id number] AGE: 71 Location: [facility] Re10/07/16 SEX: M Status: DEP ER SPEC: [id number] JC: 10/07/[address] [facility] [address]: Amee Banuelos MD REQ: [id number] RECD: 10/07/16 STATUS: NATANAEL ESCOBAR DR: Geraldo Saab III, MD _ SOURCE: URINE SPDESC: ORDERED: Urine Culture COMMENTS: [id number] Procedure Result Reported Site Urine Culture Final 10/08/16- 1250 ML No Growth (<1,000 CFU/mL) * ML - MAIN LAB ([facility]) . END OF REPORT * ML=Testing performed at Main Lab DEPARTMENT OF PATHOLOGY, [address] [place] [address] Jimmy Prater M.D. Director [facility] # [id number] Burr Sander: [id number] 9 Because ethnic data is not always [...] pg/mL: likely moderate to severe CHF 18 [facility] Severe Sepsis and Septic Shock Management Bundle [...] 0.03 ng/mL Not supportive of diagnosis of MO 0.03 - 0.50 ng/mL Indeterminate: suggest serial studies if clinically indicated. Greater than 0.5 ng/mL Consistent with diagnosis of MO 22 Serum levels of PSA measured using the [facility] DXI Hybritech immunoassay should not be interpreted as absolute evidence of the presence or absence of disease. The PSA value should be used in conjunction with other pertinent clinical diagnostic procedures. The values obtained with different assay methods or kits cannot be used interchangeably. 23 CALL RESULTS TO TODAY [phone] 24 Because ethnic data is not always [...] 0.03 ng/mL Not supportive of diagnosis of MO 0.03 - 0.50 ng/mL Indeterminate: suggest serial studies if clinically indicated. Greater than 0.5 ng/mL Consistent with diagnosis of MO 26 CALL RESULTS TO TODAY [phone] >100 to <200 pg/mL: likely compensated [...] and in selective patients <6.0%.Please refer to [place] [employer] Diabetic care guidelines for further information. 37 Desirable <150 Borderline high 150-199 High 200-499 Very High >500 38 Desirable <200 Borderline high 200-239 High >239 39 Low <40 Desirable: 40-60 High: >60 40 Desirable <100 Near Optimal 100-129 Borderline high 130-159 High 160-189 Very High >189 41 Serum levels of PSA measured using the [employer] DXI Hybritech immunoassay should not be interpreted [...] Serum levels of PSA measured using the [employer] DXI Hybritech immunoassay should not be interpreted [...] SERUM LEVELS OF PSA MEASURED USING THE Smart [employer] ACCESS HYBRITECH IMMUNOASSAY SHOULD NOT BE INTERPRETED ABSOLUTE EVIDENCE OF THE PRESENCE OR ABSENCE OF DISEASE. THE PSA VALUE SHOULD BE USED IN CONJUNCTION WITH OTHER PERTINENT CLINICAL DIAGNOSTIC PROCEDURES. The values obtained with different assay methods or kits cannot be used interchangeably. 55 * SERUM LEVELS OF PSA MEASURED USING THE [employer] ACCESS HYBRITECH IMMUNOASSAY SHOULD NOT BE INTERPRETED ABSOLUTE EVIDENCE OF THE PRESENCE OR ABSENCE OF DISEASE. THE PSA VALUE SHOULD BE USED IN CONJUNCTION WITH OTHER PERTINENT CLINICAL DIAGNOSTIC PROCEDURES. The values obtained with different assay methods or kits cannot be used interchangeably. 56 RUN DATE: 07/19/11 [facility] NMI LIVE PAGE 1 RUN TIME: 1149 Specimen Inquiry RUN USER: INTERFACE Name: CHRIS Artem Status: REG REF Re07/17/11 Age/Sex: 66/M Unit#: [id number] Location: [facility] : [birth year] SPEC #: [id number] JC: 07/17/11 STATUS: COMP REQ #: [id number] RECD: 07/17/[address] [facility] [address]: Geraldo Saab III, MD SOURCE: URINE ENTR: 07/17/[address]: FRED: ORDERED: URINE C S QUERIES: MEDENT REQUISITION # [id number] ACT WKST: UR 07/19/11 #1 Procedure Result [...] *These antibiotics are not available in the [facility] Formulary. Contact the Microbiology Department for any additional antibiotic reporting. [facility] State Permit #[id number] [address] [place] [address] DEPARTMENT OF PATHOLOGY, [address] [place] [address] [facility] Permit #[id number] Jimmy Prater M.D. Director Michelle Nelson M.D. Mobile Practice Lead 57 Anion gap measurement may be of [...] <15 (or dialysis) 60 Test Performed by: [facility] Dpt of Lab Med and Pathology [address] [place] [address] Review Consultant: Kobe Jimenez III, M.D. 61 Serologic response to B. burgdorferi infection is not detected, but cannot rule out early infection during which low or undetectable antibody levels to B. burgdorferi may be present. If clinically indicated, a new serum specimen should be submitted in 7-14 days. Test Performed by: [facility] Dpt of Lab Med and Pathology [address] [place] [address] Review Consultant: Kobe Jimenez III, M.D. 62 Test Performed by: [facility] Dpt of Lab Med and Pathology [address] [place] [address] Review Consultant: Kobe Jimenez III, M.D. 63 Test Performed by: [facility] Dpt of Lab Med and Pathology [address] [place] [address] Review Consultant: Kobe Jimenez III, M.D. 64 * SERUM LEVELS OF PSA MEASURED USING THE [employer] ACCESS HYBRITECH IMMUNOASSAY SHOULD NOT BE INTERPRETED ABSOLUTE EVIDENCE OF THE PRESENCE OR ABSENCE OF DISEASE. THE PSA VALUE SHOULD BE USED IN CONJUNCTION WITH OTHER PERTINENT CLINICAL DIAGNOSTIC PROCEDURES. The values obtained with different assay methods or kits cannot be used interchangeably. 65 * SERUM LEVELS OF PSA MEASURED USING THE [employer] ACCESS HYBRITECH IMMUNOASSAY SHOULD NOT BE INTERPRETED ABSOLUTE EVIDENCE OF THE PRESENCE OR ABSENCE OF DISEASE. THE PSA VALUE SHOULD BE USED IN CONJUNCTION WITH OTHER PERTINENT CLINICAL DIAGNOSTIC PROCEDURES. 66 * SERUM LEVELS OF PSA MEASURED USING THE [employer] ACCESS HYBRITECH IMMUNOASSAY SHOULD NOT BE INTERPRETED ABSOLUTE EVIDENCE OF THE PRESENCE OR ABSENCE OF DISEASE. THE PSA VALUE SHOULD BE USED IN CONJUNCTION WITH OTHER PERTINENT CLINICAL DIAGNOSTIC PROCEDURES. 67 * SERUM LEVELS OF PSA MEASURED USING THE [employer] ACCESS HYBRITECH IMMUNOASSAY SHOULD NOT BE INTERPRETED [...] has been shown to interfere with the [place] method for measuring total bilirubin. Samples [...] change was based on recommendations from the [place] [employer]. 76 Please note change in reference range effective 07 . 77 A metabolite of Naproxen, O-desmethylnaproxen, has been shown to interfere with the [place] method for measuring total bilirubin. Samples [...] SERUM LEVELS OF PSA MEASURED USING THE [employer] ACCESS HYBRITECH IMMUNOASSAY SHOULD NOT BE INTERPRETED [...] change was based on recommendations from the [place] [employer]. 86 Please note change in [...] LEVELS OF PSA MEASURED USING THE [employer] ACCESS HYBRITECH IMMUNOASSAY SHOULD NOT BE INTERPRETED [...] Code Description Status 09/04/2016 Colonoscopy Completed 06/20/2016 10316 EKG Tracing & Interpretation Completed 04/07/2016 84307 EKG Tracing & Interpretation Completed 01/05/2016 10139 EKG Tracing & Interpretation Completed 04/21/2015 59714 EKG Tracing & Interpretation Completed 12/16/2014 08581 ECHO Transthoracic, Real-Time 2D With Doppler And Color Completed Flow 12/08/2014 74172 EKG Tracing & Interpretation Completed 12/04/2014 27014 Treadmill Interp/Report Only Completed 12/04/2014 84159 Stress Test Supervsn W/Out I/R Completed 09/24/2014 31288 Pulmonary Function><Bronchodil Completed 09/24/2014 77537 Diffusing Capacity Completed 09/24/2014 21315 Plethysmography Determination Lung Volumes & Per Completed Airway Resist 09/09/2014 94864 ECHO Transthoracic, Real-Time 2D With Doppler And Color Completed Flow 09/07/2014 16816 EKG Tracing & Interpretation Completed 06/18/2014 83907 Repair Hernia Inguinal > 5Yrs, Reducible Completed 06/18/2014 89690 Repair Hernia Umbilical > 5 Yrs, Reducible Completed 06/12/2014 99179 ECHO Transthoracic, Real-Time 2D With Doppler And Color Completed Flow 05/29/2014 82281 Treadmill Interp/Report Only Completed 05/29/2014 00841 Stress Test Supervsn W/Out I/R Completed 04/21/2014 12969 EKG Tracing & Interpretation Completed 09/24/2013 49444 Holter Monitoring 24 HR New Completed 09/09/2013 24762 ECHO Stress Test Incl Perf Contiuous ekg Monitoring Completed W/Phys Superv 09/05/2013 38179 ECHO Transthoracic, Real-Time 2D With Doppler And Color Completed Flow 08/08/2013 29532 EKG Tracing & Interpretation Completed 05/30/2012 73802 EKG Tracing & Interpretation Completed 11/23/2011 77498 Treadmill Interp/Report Only Completed 11/23/2011 53572 Stress Test Supervsn W/Out I/R Completed 11/22/2011 76769 ECHO Stress Test Incl Perf Contiuous ekg Monitoring Completed W/Phys Superv 11/22/2011 55069 ECHO Stress Test Incl Perf Contiuous ekg Monitoring Completed W/Phys Superv 08/24/2011 40561 Color Flow Doppler/Interp & Reprt Completed 08/24/2011 92989 Pulse Wave/Continuous-Interp.RPT Completed 08/24/2011 01586 ECHO Transthorasic Realtime 2D W Doppler & Color Completed Flow Hosp 08/17/2011 33799 EKG Tracing & Interpretation Completed 09/22/2005 Colonoscopy Completed Encounters Type Date Location Provider CPT E/M Dx Office Visit 12/29/2016 [facility] Ck Alaniz, [address]64 G20 3:30p Josue G47.30 Office Visit 07/11/2016 9:40a [facility] [place] [address] M79.672 - [place] Office Visit 06/20/2016 10:20a [facility] Nahun Clay 36401 G20 Josue G47.30 R60.9 Office Visit 06/07/2016 3:30p [facility] C[facility] Alaniz 96960 G20 Services [facility] Josue Office Visit 05/18/2016 10:40a [facility] Kusum Bermudez, N.Elizabeth 97118 J20.9 - [place] J01.90 Office Visit 05/05/2016 11:45a [facility] Shira Gertrude, 98768 G47.33 [facility] SOLANGE RN, [facility]- Office Visit 04/07/2016 9:40a [facility] Geraldo Saab, 39045 Z00.01 - Gabriel [place] G20 G47.30 E78.00 N40.0 R60.0 Office Visit 03/10/2016 11:00a [facility] Geraldo Saab, 92465 J06.9 - [place] Office Visit 01/28/2016 9:00a [facility] Maxi Kaiser, 19005 D17.21 - [place] R29.6 R22.31 Office Visit 01/05/2016 11:20a [facility] Geraldo Saab, 30923 Z01.810 - Gabriel [place] G20 G47.30 Office Visit 11/24/2015 9:15a [facility] Ck Alaniz 56157 G20 Josue Office Visit 06/01/2015 2:45p [facility] Ck Alaniz 47710 G20 Of [facility] M.DPriti Office Visit 04/21/2015 11:40a [facility] Nahun Holder 12832 G20 Josue Clay E78.0 R07.9 R06.00 R94.31 Office Visit 02/10/2015 3:15p [facility] Alaniz 90429 G20 [facility] M.DPriti Office Visit 12/24/2014 2:40p [facility] Nahun Clay 64675 E78.0 MElisabeth R07.9 R06.00 R00.2 Office Visit 12/03/2014 2:00p [facility] HEATHER Marquez 40296 426.4 272.0 786.50 427.69 Office Visit 12/02/2014 4:00p [facility] Geraldo Saab, 43645 786.50 - [place] Office Visit 11/18/2014 2:30p [facility], 37036 327.23 [facility] Josue 332.0 Office Visit 10/06/2014 10:15a [facility] Shira Loredo, 20820 327.23 [facility] SOLANGE RN, [facility]- Office Visit 10/01/2014 2:45p [facility] [place] [address] 786.09 Services [facility] Office Visit 09/07/2014 3:40p [facility] Nahun Clay, 94720 786.09 M.DPriti 794.31 426.4 Office Visit 09/03/2014 1:00p [facility] Josef Malik M.D. 93509 786.05 [facility] Office Visit 08/31/2014 2:40p [facility] - Geraldo Saab, 68194 V06.1 [place] V03.82 786.05 Office Visit 05/29/2014 11:30a [facility] Nahun Clay, 48249 550.90 Josue 272.0 426.4 794.31 414.01 Office Visit 05/21/2014 4:00p [facility] Geraldo Saab, 95027 550.90 - [place] Office Visit 05/07/2014 4:00p [facility] Geraldo Saab, 70197 550.90 - [place] Office Visit 04/28/2014 2:45p [facility] Alan[facility], 08233 332.0 [facility] Josue Office Visit 04/23/2014 9:20a [facility] Geraldo Saab, 37784 465.9 - [place] 332.0 Office Visit 04/21/2014 3:00p [facility] Nahun Clay M.D. 74149 272.0 794.31 426.4 Office Visit 03/02/2014 2:20p [facility] Geraldo Saab, 96125 465.9 - [place] Office Visit 10/29/2013 1:45p [facility] Ponce[place], 76301 332.0 Services Of [facility] M.D. Office Visit 08/08/2013 3:20p [facility] Nahun Clay, 22662 794.31 M.DPriti 332.0 272.0 414.01 782.3 Office Visit 07/15/2013 3:00p [facility] HaydeePriti [place], 03283 332.0 Services Of [facility] M.D. Office Visit 06/23/2013 11:00a [facility] Geraldo Saab, 80408 790.21 - [place] M.DPriti 780.57 332.0 272.0 Office Visit 01/23/2013 10:30a [facility] Samra Espinoza, N.P. 06995 477.9 - [place] 465.9 Office Visit 01/15/2013 2:45p [facility] HaydeePriti [place], 61844 332.0 Services Of [facility] M.D. Office Visit 08/27/2012 1:00p [facility] Geraldo Saab, 94995 553.1 - [place] M.DPriti Office Visit 08/02/2012 10:20a [facility] Geraldo Saab, 18603 724.5 - [place] M.DPriti Office Visit 07/16/2012 2:45p [facility] HaydeePriti Alaniz, 04148 332.0 Services Of [facility] M.D. Office Visit 06/19/2012 2:40p [facility] Geraldo Saab, 98338 719.46 - [place] M.DPriti Office Visit 06/10/2012 10:40a [facility] Geraldo Saab, 20353 381.19 - [place] M.D. Office Visit 05/30/2012 10:20a [facility] Nahun Clay, 19118 786.09 M.DPriti 426.52 794.31 Office Visit 05/03/2012 11:20a [facility] Geraldo Saab, 84889 465.9 - [place] M.DPriti 382.9 Office Visit 04/03/2012 3:40p [facility] Geraldo Saab, 33232 726.19 - [place] M.D. Office Visit 02/21/2012 1:20p [facility] Geraldo Saab, 49543 786.09 - [place] M.D. Office Visit 01/16/2012 2:30p [facility] HaydeePriti [place], 59469 332.0 Services Of [facility] M.D. Office Visit 12/20/2011 10:00a [facility] Geraldo Saab, 55966 780.79 - [place] M.DPriti 786.09 600.20 Office Visit 11/24/2011 11:15a [facility] HaydeePriti [place], 48145 780.93 Services Of [facility] M.D. 780.79 Office Visit 11/22/2011 11:30a [facility] Nahun Clay, 82926 786.05 M.DPriti 794.31 780.79 Office Visit 11/01/2011 1:00p [facility] Geraldo Saab, 43466 786.05 - [place] M.DPriti 780.93 Office Visit 08/17/2011 1:40p [facility] Geraldo Saab, 25927 786.09 - [place] M.D. Office Visit 07/17/2011 1:00p [facility] Geraldo Saab, 47940 599.0 - [place] M.DPriti 790.21 Office Visit 07/07/2011 11:40a [facility] Geraldo Saab, 52690 780.79 - [place] M.DPriti 784.1 Office Visit 06/20/2011 10:40a [facility] Geraldo Saab, 94687 780.79 - [place] M.D. Office Visit 06/13/2011 1:40p [facility] Geraldo Saab, 63506 780.79 - [place] M.DPriti Office Visit 04/19/2011 10:00a [facility] Geraldo Saab, 08686 719.46 - [place] M.D. Office Visit 12/06/2010 10:00a DO Not Use [facility], 18049 601.1 [place] Afbmiri M.DPriti Office Visit 11/24/2010 1:00p DO Not Use [facility] At [facility], 70414 V70.0 [facility].D 790.21 477.9 723.1 600.20 Office Visit 07/28/2010 4:00p DO Not Use [facility], 48481 726.19 [facility].D. 780.79 V03.82 Office Visit 04/15/2010 9:20a DO Not Use [facility], 38845 465.9 [facility].D. Office Visit 11/25/2009 3:40p DO Not Use [facility], 99952 604.90 [facility].D. Office Visit 09/09/2009 9:00a DO Not Use [facility], 46268 V70.0 [facility].D 790.21 600.20 Office Visit 05/31/2009 3:20p DO Not Use [facility], 41441 300.02 [facility] 796.2 Office Visit 05/03/2009 2:40p DO Not Use [facility], 95772 465.9 [facility] 780.79 Office Visit 12/17/2008 11:15a DO Not Use [facility], 25905 465.9 [facility].D. Office Visit 09/07/2008 9:00a [facility], 59402 V05.8 [facility] V70.0 602.9 Office Visit 12/20/2007 10:15a [facility], 54667 465.9 [facility].D. Office Visit 11/27/2007 10:30a [facility], 96462 723.1 [facility].D 780.52 Office Visit 09/05/2007 9:30a [facility], 48919 724.2 [facility].D 602.9 477.9 V70.0 Office Visit 06/20/2007 3:15p [facility] Geraldo Saab, 44876 465.9 [facility] Josue Office Visit 03/29/2007 9:15a [facility] Geraldo Saab, 48096 724.2 [facility] Josue Plan of Care Future Appointment(s):05/22/2017 11:40 am - Nahun Clay M.D. at [place] Djjicnbwfw52/18/2018 3:45 pm - Ck Alaniz M.D. at [facility]04/10/2017 - Geraldo Saab M.D.Z00.00 Encntr for general adult medical exam w/o abnormal fckmucxsP30 Parkinson's okpvpnuE37.30 Sleep apnea, sauojkryjsnB55.00 Pure hypercholesterolemia, wdqvnazlxooS25.0 Benign prostatic hyperplasia without lower urinry tract sympM25.569 Pain in unspecified kneeK21.9 Gastro-esophageal reflux disease without esophagitisNew Medication:Famotidine 40 mg
[2017-05-02 07:30] VITALS: BP 95/68
--- NOTE | 2017-05-02 07:39 | UC ---
UC General HPI - HPI Summary HPI Summary: Pt presnts with 3 weeks of intermittent dizziness. Pt states primarily notes when he moves his head quickly. Pt also reports right TMJ pain with jaw opening , "popping sensation" in ear, and sore throat R>L Pt denies fevers, chills no changes in appetitie pt with baseline sob- no recent change no cp no abdominal pain no n/v/d no fever,chills rash no jasso, vision changes pt saw PCP and dentist. Pt scheduled to see ENT - Dr. Camarillo Pt here today because SO came as pt Pt states this morning symptoms "not too bad" { Pt with a h/o dizziness for which has previously taken meclizine. Pt reports feels similar. Pt did not take because pills are old Pt's medications reviewed this visit - History of Current Complaint Chief Complaint: UCDizziness Stated Complaint: DIZZY Time Seen by Provider: 05/02/17 07:18 Hx Obtained From: Patient, Family/Solutions Consultant Onset/Duration: Gradual Onset Timing: Intermittent Episodes Lasting: Onset Severity: Moderate Current Severity: Mild Pain Intensity: 4 Associated Signs & Symptoms: Positive: Other - sore throat, TMJ - Allergy/Home Medications Allergies/Adverse Reactions: Allergies Allergy/AdvReac Type Severity Reaction Status Date / Time MS Ciprofloxacin [From Cipro] Allergy Unknown Difficulty Verified 09/04/16 15:08 Breathing MS Minocycline [Minocycline] Allergy Unknown Hives Verified 09/04/16 15:08 MS Clopidogrel [From Plavix] AdvReac Unknown See Comment Verified 09/04/16 15:08 Home Medications: Home Medications Finasteride TAB* [Proscar TAB*] 5 mg PO DAILY 05/02/17 [History Confirmed ] PMH/Surg Hx/FS Hx/Imm Hx Previously Healthy: Yes Neurological History: Other Other Neurological History: parkinson dx - Surgical History Surgical History: Yes Surgery Procedure, Year, and Place: T/A A CHILD, 1951, [place] NYTUMOR ON FOOT 1952 FROM PUNCTURE WOUND, WISDOM TEETH 1971, basal cell FACE AND BACK SEVERAL TIMES IN PAST 10-15 YRS, hernia repair (DOUBLE), Deep Brain Stimulation electrodes in place - Family History Known Family History: Positive: Hypertension Negative: Diabetes - Social History Occupation: Retired Lives: With Family Alcohol Use: Occasionally Alcohol Amount: 2 glasses wine 4 days/week Substance Use Type: None Smoking Status (MU): Former Smoker Type: Pipe Amount Used/How Often: PIPE Have You Smoked in the Last Year: No When Did the Patient Quit Smoking/Using Tobacco: 1979 - Immunization History Most Recent Influenza Vaccination: 2014 Most Recent Tetanus Shot: 2014 Review of Systems Constitutional: Negative Skin: Negative Eyes: Negative ENT: Sore Throat, Nasal Discharge, Other - rght ear popping Respiratory: Shortness Of Breath - chronic, no change Cardiovascular: Negative Gastrointestinal: Negative All Other Systems Reviewed And Are Negative: Yes Physical Exam Triage Information Reviewed: Yes Appearance: Well-Appearing, No Pain Distress, Well-Nourished Vital Signs: Initial Vital Signs Temp 98.4 F 05/02/17 07:21 Pulse 79 05/02/17 07:21 Resp 18 05/02/17 07:21 BP 95/68 05/02/17 07:21 Pulse Ox 94 05/02/17 07:21 Vital Signs Reviewed: Yes Eye Exam: Normal Eyes: Positive: Conjunctiva Clear, Other: - 2 beat to right horizontal extinguishing nystagmus ENT: Positive: Other - bilateral TM wnl right TMJ discomfort mild turbinates inflammed mild PND mild erythema n o exudate, no erythema uvula midline Dental Exam: Normal Neck exam: Normal Neck: Positive: Supple, Nontender, No Lymphadenopathy Respiratory Exam: Normal Respiratory: Positive: Chest non-tender, Lungs clear, Normal breath sounds, No respiratory distress, No accessory muscle use Cardiovascular Exam: Normal Cardiovascular: Positive: RRR, No Murmur, Other: - no temporal artery pain Abdominal Exam: Normal Abdomen Description: Positive: Nontender, No Organomegaly, Soft Bowel Sounds: Positive: Present Musculoskeletal Exam: Normal Neurological Exam: Normal Neurological: Positive: Alert Psychological Exam: Normal Skin Exam: Normal Skin: Positive: Other - no rash Course/Dx - Course Course Of Treatment: pt with sore throat, right TMJ pain and intermittnet episodes of dizziness. pt with erythema of oropharynx and right nystagmus extinguishing. WIll give meclizine. check strep. d/w pt and so at length. if sx persiste - recommend go to ED for further eval. suspect peripheral cause given exam. pt uses walker. pt and SO comfortable and in agreement with plan - Differential Dx - Multi-Symptom Provider Diagnoses: vertigo. dizziness Discharge - Discharge Plan Condition: Stable Disposition: HOME Prescriptions: Meclizine TAB* [Antivert 12.5 TAB*] 25 mg PO Q8HR PRN #15 tab PRN Reason: Dizziness Patient Education Materials: Vertigo (ED), Dizziness (ED) Referrals: Geraldo Saab MD [Primary Care Provider] - Additional Instructions: - stay well hydrated. drink plenty of non-alcoholic, non-caffinated beverages - take meclizine as prescribed for dizziness - slow change positions - lying to sitting, sitting to standing - use your walker or cane at all times - of you symptoms worsen you have a headache, vision changes or ANY other concerns you should go directly to the emergency department for further testing
[2017-05-02] MEDS ORDERED: Meclizine TAB* 12.5 MG PO ONE (07:55)
== END 2017-05-02 09:10 | disposition home or self-care (01) ==
LOC: UCEAST 07:04
DX: R42 Dizziness and giddiness (principal); Z87.891 Personal history of nicotine dependence
CPT/HCPCS: 87651; 99212; A9270-GY; G0463

== ENCOUNTER 2018-02-10 16:47 | Emergency (ER) | payer MEDICARE, BC ==
--- OUTSIDE RECORDS SUMMARY | 2018-02-10 17:00 | XMS REPORT ---
:1945 External Reference #:[id number] Author Organization [facility] Address [address] [place] [address] [place] [address] Phone [phone] Care Team Providers Name Role Phone Geraldo Saab III, MD Primary Care Physician Unavailable Payers Type Date Identification Numbers Payment Provider Subscriber Medicare Primary Effective: Policy Number: Medicare Chris Wallis JR 2009 [id number] PayID: [id number] [address] [place] [address] Medigap Part B Policy Number: [id number] [facility] Chris Wallis JR Group Number: [id number] [address] PayID: [id number] [place] [address] Problems Date Description Provider Status Onset: 11/24/2010 [...] of adult Shira Loredo DNP, RN, 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 Active Onset: 01/22/2018 Abnormal gait Drew Thomas M.D. Active Social History Type Date Description Comments Marital Status Lives With Occupation Retired Hand Dominance Right-handed Cigarette Use Never Smoked Cigarettes Cigarette Use pipe only in the past Cigarette Use Quit in 1982 ETOH Use Consumes 1 glass of wine per 3-4 days weekly day Recreational Drug Use Denies Drug Use Smoking Patient is a former smoker Daily Caffeine 4 cups of coffee a week Exercise Type/Frequency Exercises sporadically walks on occ for up to a half hr Allergies, Adverse Reactions, Alerts Date Description Reaction Status Severity Comments 03/28/2007 Plavix Bruise umaña active 03/28/2007 Minocycline Hives active Hives 07/17/2011 Cipro Cramps active Medications Medication Date Status Form Strength Qnty SIG Indications Ordering Provider Trazodone HCL 10/30 Active Tablets 50mg 30tab 1 by mouth G47.33 Drew /2017 s every Josue Thomas night Carbidopa-Levo 10/30 Active Tablets ER 50-200mg 90tab take 1 G47.33 Drew dopa ER /2017 s pill three Josue Thomas times at day at 6am, 12 pm and 6 pm Famotidine 04/10 Active Tablets 40mg 90tab take one K21.9 Geraldo Cruz s tablet by Josue Saab mouth once daily Azilect 05/04 Active Tablets 1mg 1 tab by mouth daily Prozac 05/31 Active Capsules 20mg 90cap Take One Ck S. s Capsule By Katty, Mouth Once M.D. Daily OTC Hemmroid 11/26 Active As needed Geraldo Cruz Josue Saab Ecotrin Active Tablets DR 81mg 1 PO qd Unknown Regular Strength Flaxseed Oil Active 1000mg 1 PO two Katiana III, times per saturnino Cash MD Tamsulosin HCL Active 0.4mg 1 po qd Unknown Cortisone Active topical, Unknown Cream as needed Ciclopirox Active Cream 0.77% 30gm apply to Unknown Olamine penis qd as needed Ducosate Active Tablets DR 100mg 1 tab by Unknown Sodium mouth at 6pm and one at bedtime Triamcinolone Active Cream 0.1% apply Unknown Acetonide And twice a Nystatin day until clear as needed Magnesium Active Tablets 250mg 1 by mouth Unknown twice a day Finasteride Active Tablets 5mg once daily Hannah, MD [facility] Glucosamine Active Capsules 1500Com 1 by mouth Unknown Chondroitin daily 1500 Complex Carbidopa-Levo 01/11 Hx Tablets 25-100mg 120ta 1 po four G47.33 Ck S. dopa bs times a Katty, - day M.D. 01/22 Carbidopa-Levo 12/04 Hx Tablets ER 50-200mg 90tab take 1 Christopher dopa ER s pill roderick Thomas M.D. - mouth 01/11 times a day at 6am, 12pm and 6 pm Voltaren 07/11 Hx Gel 1% 300gm apply 2 M79.672 John Dyer, grams of [employer] - gel twice 04/09 daily to the affected area. Azithromycin 05/18 Hx Tablets 250mg 6tabs two tabs J20.9 day one, Varn, N.P. - one daily 05/28 till Cheratussin ac 05/18 Hx Syrup 100-10mg/ 120ml 2 J20.9 5ML teaspoons Varn, N.P. - by mouth 07/11 every hours as needed Dyazide 04/08 Hx Capsules 37.5-25mg 30cap 1 by mouth Geraldo Cruz s daily 3 Josue Saab - days per Benzonatate 03/10 Hx Capsules 100mg 30cap 1-2 tab by J06.9 Geraldo Cruz s yulia Saab M.D. - three 04/07 times day as needed Ropinirole HCL 05/31 Hx Tablets 1mg 4 po tid Ck Bruno Ashley Alaniz M.D. 11/22 Carbidopa-Levo 05/31 Hx Tablets 25-100mg 270ta 1 po 4x a Ck rodriguez Ashley Stone M.D. 12/04 Ropinirole HCL 04/21 Hx Tablets 2mg 1 tab by Geraldo Cruz mouth tid Josue Saab - 05/31 Ropinirole HCL 03/01 Hx Tablets 0.5mg 360ta 1 po tid Geraldo Cruz melodie Saab M.D. - 04/21 Nitrostat 12/02 Hx Tablets Sub 0.4mg 25tab one sl Geraldo Cruz s q5min up Josue Saab - to 3 doses 12/28 as needed Amantadine HCL 11/18 Hx Syrup 50mg/5ML 150ml 25 mg/2.5 Ck Bruno ml at 8 Am Katty, - and at M.D. 02/09 states this is on hold Carbidopa-Levo 09/24 Hx Tablets 25-100mg 270ta 1/2 tab by Ck rodriguez bs yulia six Katty, - times M.D. 02/09 every day /2014 Pravastatin 06/23 Hx Tablets 20mg 90tab 1 tablet 272.0 Geraldo Byrne s by yulia Saab M.D. - once daily 06/11 at bedtime Amantadine HCL 10/02 Hx Syrup 50mg/5ML 350un 50 mg/5 ml Ck Bruno its at noAshley Gibbs M.DPriti 05/06 Amantadine HCL 07/16 Hx Capsules 100mg 90cap 1 by mouth s every Gnadt, [employer] - morning on 09/30 hold as 08/24/14 Nasonex 05/30 Hx Suspension 50mcg/Act 1unit 2 sprays Nahun Holder s to each Josue Clay - nostril 08/31 daily prn Asmanex 30 02/20 Hx Aerosol 110mcg/In 30uni 1 puffs R06.00 Geraldo Cruz Metered Doses /2011 h ts daily in Josue Saab - the 03/01 Sulfamethoxazo 07/16 Hx Tablets 800-160mg 20tab 1 po bid 599.0 Geraldo cortes/Trimethopri /2011 s Josue Saab DS - 12/19 Androderm 06/19 Hx Patches 2mg/24HR 30uni apply 1 780.79 Geraldo Cruz /2011 24HR ts patch Josue Saab - daily; 12/19 after 24 hours code f Cipro 12/06 Hx Tablets 500mg 28tab 1 po bid 601.1 [place] /2010 Ashley Boland M.D. 04/19 Septra DS 11/25 Hx Tablets 800-160mg 20tab 1 po bid 604.90 Geraldo Cruz /2009 ferny Saab M.D. - 01/12 Ibuprofen 05/03 Hx Tablets 600mg 90tab 1 po tid Geraldo Cruz /2009 s pryeison Saab M.D. - 04/07 Amoxicillin 12/19 Hx Tablets 500mg 30tab 1 po tid Geraldo Cruz s for 10 Josue Saab - days 01/22 Liz 06/19 Hx Tablets 180mg 30tab 1 po qd Geraldo Cruz s pryeison Saab M.D. - 01/05 Physical 04/03 Hx PT Geraldo Cruz Therapy evaluation Josue Saab - and 01/12 treatment /2009 for neck pains Vitamin C Hx Tablets 500mg 1 PO qd Katiana GR, /0000 Ashley Cash MD 07/16 Multivitamins Hx Tablets 90tab 1 PO qd Unknown /0000 s - 02/20 Kenalog 00/00 Hx Cream 0.1% 60GM Apply bid Barken, /0000 prn Eczema MD Javier - 12/17 Proctosol HC 00/00 Hx Cream 2.5% 60gm Apply bid Barken, /0000 prn MD Javier - 12/17 Metamucil 00/00 Hx Powder po with Unknown Original /0000 liquid qhs Texture - 12/02 Nystatin / Hx Cream [id number] 60g topically Unknown /0000 t/GM bid prn - 01/27 Melatonin 00 Hx Capsules 5mg 1 by Unknown /0000 mouth - every 12/28 night at /2016 bedtime Prozac 00 Hx Capsules 10mg 1 by mouth Unknown /0000 every day - 05/31 Metamucil 00/00 Hx Powder 28.3% as needed Unknown /0000 - 02/09 Sinemet Hx Tablets 25-100mg 1/2 po bid Unknown /0000 - 05/31 Neupro 00 Hx Patches 2mg/24HR apply once Unknown /0000 24HR daily at - 6 am 03/10 Aspirin Ec Low [address] 81mg 1 by mouth Unknown Dose /0000 every day - 03/10 Melatonin Hx Capsules 5mg 1 tablet G47.33 Unknown /0000 at bed - time 01/22 Medications Administered in Office Medication Date Status Form Strength Qnty SIG Indications Ordering Provider Influenza Administered Injection Geraldo Cruz Virus Vaccine 015 Josue Saab Influenza Administered Injection Unknown Virus Vaccine 014 Immunizations CPT Code Status Date Vaccine Lot # [id number] Given 12/11/2017 Fluzone High Dose 62765 Given 01/14/2016 Fluzone High Dose 78605 Given 08/31/2014 Tdap - Tetanus/Diptheria/Acellular Pertussis [id number] 03734 Given 08/31/2014 Pneumococcal Conjugate Vaccine 13 Valent For [id number] Intramuscular Use 08109 Given 07/28/2010 Pneumonia Vaccine [id number] 81540 Given 01/14/2009 Influenza Virus 3Yrs & Over 75146 Given 09/07/2008 Zoster (Zostavax) 67253 Given 01/01/2008 Influenza Virus 3Yrs & Over 74081 Given 07/13/2004 Td (History By Patient) Vital Signs Date Vital Result Comment 01/22/2018 Height 68.25 inches 5'8.25" Weight 175.00 lb Heart Rate 72 /min BP Systolic 110 mmHg BP Diastolic 88 mmHg Respiratory Rate 16 /min BMI (Body Mass Index) 26.4 kg/m2 12/19/2017 Height 68.25 inches 5'8.25" Weight 184.38 lb W/ Shoes Heart Rate 80 /min BP Systolic Sitting 108 mmHg Lue Reg Cuff BP Diastolic Sitting 78 mmHg Lue Reg Cuff BMI (Body Mass Index) 27.8 kg/m2 Ejection Fraction 60-65% ECHO 07/10/17 10/19/2017 Height 68.25 inches 5'8.25" Weight 188.00 lb Heart Rate 60 /min BP Systolic Sitting 140 mmHg Lue reg cuff BP Diastolic Sitting 90 mmHg Lue reg cuff Respiratory Rate 16 /min O2 % BldC Oximetry 95 % On Ra BMI (Body Mass Index) 28.4 kg/m2 08/21/2017 Height 68.25 inches 5'8.25" Weight 189.00 lb with shoes Heart Rate 62 /min BP Systolic Sitting 118 mmHg Lue reg cuff BP Diastolic Sitting 82 mmHg Lue reg cuff Respiratory Rate 16 /min BMI (Body Mass Index) 28.5 kg/m2 Ejection Fraction 60-65% 07/10/2017-echo 08/15/2017 Weight 189.00 lb Heart Rate 67 /min BP Systolic Sitting 114 mmHg BP Diastolic Sitting 70 mmHg O2 % BldC Oximetry 96 % 07/27/2017 Height 68.25 inches 5'8.25" Weight 189.25 lb Heart Rate 62 /min BP Systolic Sitting 122 mmHg Lue reg cuff BP Diastolic Sitting 88 mmHg Lue reg cuff Respiratory Rate 16 /min O2 % BldC Oximetry 96 % On Ra BMI (Body Mass Index) 28.6 kg/m2 07/11/2017 Height 68.25 inches 5'8.25" Weight 185.00 lb Heart Rate 82 /min Respiratory Rate 18 /min BMI (Body Mass Index) 27.9 kg/m2 06/21/2017 Height 68.25 inches 5'8.25" Weight 185.00 lb Heart Rate 76 /min BP Systolic Sitting 114 mmHg rue reg cuff BP Diastolic Sitting 74 mmHg rue reg cuff Respiratory Rate 16 /min BMI (Body Mass Index) 27.9 kg/m2 Ejection Fraction 50-55% 12/16/2016 echo 04/12/2017 Height 68.25 inches 5'8.25" Weight 190.00 [...] Test Date Test Result H/L Range Note CBC Auto Diff 07/31/2017 White Blood Count 5.7 10^3/uL 3.5-10.8 Red Blood Count 4.22 10^6/uL 4.0-5.4 Hemoglobin 14.2 g/dL 14.0-18.0 Hematocrit 41 % Low 42-52 Mean Corpuscular Volume 98 fL High 80-94 Mean Corpuscular Hemoglobin 34 pg High 27-31 Mean Corpuscular HGB Conc 34 g/dL 31-36 Red Cell Distribution Width 13 % 10.5-15 Platelet Count 170 10^3/uL 150-450 Mean Platelet Volume 10.2 um3 7.4-10.4 Abs Neutrophils 3.6 10^3/uL 1.5-7.7 Abs Lymphocytes 1.5 10^3/uL 1.0-4.8 Abs Monocytes 0.5 10^3/uL 0-0.8 Abs Eosinophils 0.1 10^3/uL 0-0.6 Abs Basophils 0 10^3/uL 0-0.2 Abs Nucleated RBC 0 10^3/uL Granulocyte % 63.2 % 38-83 Lymphocyte % 26.1 % 25-47 Monocyte % 9.0 % High 0-7 Eosinophil % 1.1 % 0-6 Basophil % 0.6 % 0-2 Nucleated Red Blood Cells % 0.1 Comp Metabolic Panel 07/31/2017 Sodium 139 mmol/L 139-145 Potassium 4.7 mmol/L 3.5-5.0 Chloride 102 mmol/L 101-111 Co2 Carbon Dioxide 29 mmol/L 22-32 Anion Gap 8 mmol/L 2-11 Glucose 112 mg/dL High 70-100 Blood Urea Nitrogen 17 mg/dL 6-24 Creatinine 0.82 mg/dL 0.67-1.17 BUN/Creatinine Ratio 20.7 High 8-20 Calcium 9.0 mg/dL 8.6-10.3 Total Protein 6.1 g/dL Low 6.4-8.9 Albumin 4.2 g/dL 3.2-5.2 Globulin 1.9 g/dL Low 2-4 Albumin/Globulin Ratio 2.2 1-3 Total Bilirubin 1.00 mg/dL 0.2-1.0 Alkaline Phosphatase 55 U/L 34-104 Alt 4 U/L Low 7-52 Ast 15 U/L 13-39 Egfr Non- 92.4 >60 Egfr 118.8 >60 1 Laboratory test finding 07/31/2017 Magnesium 1.9 mg/dL 1.9-2.7 TSH (Thyroid Stim Horm) 1.83 mcIU/mL 0.34-5.60 B-Type Natriuretic Peptide BNP 34 pg/mL 2 Laboratory test finding 06/21/2017 Magnesium <pending> TSH (Thyroid Stim Horm) <pending> Laboratory test finding 06/21/2017 B-Type Natriuretic Peptide <pending> BNP Laboratory test finding 05/02/2017 Rapid Strep Molecular Negative Negative 3 Lipid Profile 04/04/2017 Triglycerides 37 mg/dL 4 (Trig/Chol/HDL) Cholesterol 160 mg/dL 5 HDL Cholesterol 72.1 mg/dL 6 LDL Cholesterol 81 mg/dL 7 Laboratory test 04/04/2017 PSA Screening 3.049 ng/mL 0-4.0 8 finding Urine Culture And 10/07/2016 Urine Culture SEE RESULT BELOW 9, 10 Sensitivities Poc Urinalysis 10/07/2016 Poc Glucose, Urine Negative Negative Poc Bilirubin, Urine Negative Negative Poc Ketone, Urine Negative Negative Poc Specific [place], Urine 1.025 1.010-1.030 Poc Blood, Urine Trace-intact Negative Poc pH, Urine 6.0 5-9 Poc Protein, Urine Negative Negative Poc Urobilinogen, Urine 0.2 Negative Poc Nitrite, Urine Negative Negative Poc Leukocytes, Urine Trace Negative Poc Color, Urine Yellow Poc Clarity, Urine Slightly Cloudy 11 Basic Metabolic Panel 04/07/2016 Sodium 139 mmol/L 133-145 Potassium 4.3 mmol/L 3.5-5.0 Chloride 103 mmol/L 101-111 Co2 Carbon Dioxide 31 mmol/L 22-32 Anion Gap 5 mmol/L 2-11 Glucose 90 mg/dL 70-100 Blood Urea Nitrogen 17 mg/dL 6-24 Creatinine 0.80 mg/dL 0.67-1.17 BUN/Creatinine Ratio 21.3 High 8-20 Calcium 9.0 mg/dL 8.6-10.3 Egfr Non- 95.3 >60 Egfr 122.6 >60 12 Laboratory test finding 04/07/2016 B-Type Natriuretic Peptide BNP 50 pg/mL 13 TSH (Thyroid Stim Horm) 1.79 mcIU/mL 0.34-5.60 Magnesium 1.8 mg/dL Low 1.9-2.7 Lipid Profile (Trig/Chol/HDL) 04/01/2016 Triglycerides 44 mg/dL 14 Cholesterol 169 mg/dL 15 HDL Cholesterol 71.6 mg/dL 16 LDL Cholesterol 89 mg/dL 17 Basic Metabolic Panel 01/21/2016 Sodium 140 mmol/L 133-145 Potassium 4.6 mmol/L 3.5-5.0 Chloride 105 mmol/L 101-111 Co2 Carbon Dioxide 31 mmol/L 22-32 Anion Gap 4 mmol/L 2-11 Glucose 87 mg/dL 70-100 Blood Urea Nitrogen 20 mg/dL 6-24 Creatinine 0.76 mg/dL 0.67-1.17 BUN/Creatinine Ratio 26.3 High 8-20 Calcium 9.3 mg/dL 8.6-10.3 Egfr Non- 101.1 >60 Egfr 130.0 >60 18 CBC Auto Diff 01/21/2016 White Blood Count [...] Color Yellow Urine Appearance Cloudy Urine Specific [place] 1.023 1.010-1.030 Urine pH 5.0 5-9 Urine Urobilinogen Negative Negative Urine Ketones Negative Negative Urine Protein Negative Negative Urine Leukocytes Negative Negative Urine Blood Negative Negative * * Negative 19 Urine Nitrite Negative Negative Urine Bilirubin Negative [...] Cells % 0.1 Laboratory test finding 12/25/2015 TSH (Thyroid Stim 1.77 mcIU/mL 0.34- 5.60 Horm) CKMB 12/25/2015 CKMB ng/mL 2.1 ng/mL 0.6-6.3 Laboratory test finding 12/25/2015 Magnesium 1.8 mg/dL Low 1.9-2.7 Lipase 7 U/L Low 11.0-82.0 Creatine Kinase(CK) 58 U/L 10-223 C Reactive Protein < 1.00 mg/L < 5.00 20 Troponin-I (TnI) 0.00 ng/mL <0.03 21 Laboratory test finding 12/25/2015 B-Type Natriuretic 78 pg/mL 22 Peptide BNP Inr/Protime 12/25/2015 Inr 1.00 0.89-1.11 Laboratory test finding 12/25/2015 Partial Thrombo Time 31.1 seconds 26.0 -36.3 PTT Lactic Acid 0.8 mmol/L 0.5-2.0 23 Comp Metabolic Panel 12/25/2015 Sodium 137 mmol/L [...] Egfr Non- 97.0 >60 Egfr 124.7 >60 24 Laboratory test finding 02/03/2015 PSA Diagnostic 2.347 ng/mL 0-4.0 25 Laboratory test finding 12/03/2014 Troponin-I (TnI) 0.00 ng/mL <0.03 26 , 27 Magnesium 1.9 mg/dL 1.9-2.7 26, 28 Basic Metabolic Panel 12/03/2014 Sodium 139 mmol/L 133-145 26 Potassium 4.0 mmol/L 3.5-5.0 26 Chloride 101 mmol/L 101-111 26 Co2 Carbon Dioxide 34 mmol/L High 22-32 26 Anion Gap 4 mmol/L 2-11 26 Glucose 91 mg/dL 70-100 26 Blood Urea Nitrogen 16 mg/dL 6-24 26 Creatinine 0.80 mg/dL 0.67-1.17 26 BUN/Creatinine Ratio 20.0 8-20 26 Calcium 9.2 mg/dL 8.6-10.3 26 Egfr Non- 95.8 >60 26 Egfr 123.3 >60 26, 29 CBC Auto Diff 09/09/2014 White Blood Count [...] Cells % 0 Laboratory test finding 09/09/2014 B-Type Natriuretic Peptide 17 pg/mL 30 BNP Comp Metabolic Panel 09/09/2014 Sodium 140 [...] Egfr Non- 93.2 >60 Egfr 119.8 >60 31 Lipid Profile (Trig/Chol/HDL) 09/09/2014 Triglycerides 39 mg/dL 32 Cholesterol 148 mg/dL 33 HDL Cholesterol 67.3 mg/dL 34 LDL Cholesterol 73 mg/dL 35 Laboratory test finding 09/09/2014 Creatine Kinase(CK) 61 U/L 10-223 36 Iron & Iron Binding Capacity 09/09/2014 Iron 75 g/dL 50-212 Unsaturated Iron Binding 260 g/dL Total Iron Binding Capacity 335 g/dL 250-450 % Iron Saturation 22 % 15-55 Laboratory test finding 09/09/2014 TSH (Thyroid Stim Horm) 1.44 ?IU/mL 0.34-5.60 37 Lipid Profile 12/31/2013 Triglycerides 51 mg/dL 38 (Trig/Chol/HDL) Cholesterol 156 mg/dL 39 HDL Cholesterol 73.3 mg/dL 40 LDL Cholesterol 73 mg/dL 41 Laboratory test finding 12/31/2013 Glucose 93 mg/dL 70-100 Hemoglobin A1c 5.5 % Less than 6.0 42 Comp Metabolic Panel 12/31/2013 Sodium 139 mmol/L [...] Egfr Non- 99.0 >60 Egfr 127.3 >60 43 Laboratory test finding 06/23/2013 Hemoglobin A1c 5.4 5-7 Laboratory test finding 09/25/2012 PSA Screening 2.72 ng/mL 0-4.0 44 Laboratory test finding 07/05/2012 TSH (Thyroid Stimulating 1.79 miu/mL 0.34-5.60 45 Horm) CBC Auto Diff 07/05/2012 White Blood Count [...] Cells % 0 Laboratory test finding 07/05/2012 Creatine Kinase 76 U/L 0-200 46 Lipid Profile (Trig/Chol/HDL) 07/05/2012 Triglycerides 43 mg/dL 40-200 Cholesterol 172 mg/dL Less than 200 HDL Cholesterol 70 mg/dL High 40-60 47 Cholesterol/HDL Ratio 2.5 Average 1-4.44 LDL Cholesterol 93.4 mg/dL Less Than 100 48 Comp Metabolic Panel 07/05/2012 Sodium 139 mmol/L [...] Egfr Non- 74.5 >60 Egfr 95.9 >60 49 Laboratory test finding 03/27/2012 PSA Screening 2.85 ng/mL 0-4.0 50 Laboratory test finding 11/24/2011 Vitamin B12 303 pg/mL 180-914 TSH 1.34 MIU/ML 0.34-5.60 Laboratory test finding 10/26/2011 BNP Evaluatr 42.0 pg/mL 0-100 Comp Metabolic Panel 10/26/2011 Sodium 138 mmol/L 135-145 Potassium 4.3 mmol/L 3.5-5.0 Chloride 105 mmol/L 101-111 Co2 (Carbon Dioxide) 28.0 mmol/L 22-32 Anion Gap 5.0 mmol/L 2-11 51 Glucose 102 mg/dL High 70-100 BUN 15 mg/dL 6-24 Creatinine 0.8 mg/dL 0.50-1.40 One Over Creatinine 1.25 BUN/Creatinine Ratio 18.8 8-20 Calcium 9.1 mg/dL 8.1-9.9 Total Protein 5.5 GM/DL Low 6.2-8.1 Albumin 3.7 GM/DL 3.2-5.2 Globulin 1.8 GM/DL Low 2-4 Albumin/Globulin Ratio 2.1 1-3 Bilirubin Total 1.3 mg/dL 0.4-1.5 52 Alkaline Phosphatase 48 U/L 39-117 Alt (SGPT) 14 U/L Low 17-63 Ast (Sgot) 16 U/L 12-42 eGFR Non- 96.7 > 60 eGFR 124.4 > 60 53 CBC With Manual Diff 10/26/2011 White [...] 2 % 0-2 Anisocytosis SLIGHT Macrocytosis FEW Lipid Profile (Trig/Chol/HDL) 10/26/2011 Triglyceride 33 mg/dL Low 40-200 Cholesterol 165 mg/dL Less Than 200 54 High Density Lipoprotein 68 mg/dL High 40-60 55 Cholesterol/HDL Ratio 2.43 AVERAGE 1-4.97 Low Density Lipoprotein 90 mg/dL Less Than 100 56 Laboratory test 09/21/2011 PSA,Diagnostic 3.63 NG/ML 0-4 57 finding Laboratory test 07/17/2011 PSA,Diagnostic 13.31 NG/ML High 0-4 58 finding Urine Culture & 07/17/2011 M 59 Sensitivi -- <SEE NOTE> Laboratory test 07/17/2011 Hemoglobin A1c 5.5 5-7 finding Laboratory test 06/13/2011 C Reactive Protein < 0.5 mg/dL Less Than 0.5 finding Thyroxine Free 0.87 ng/dL 0.61-1.24 TSH 1.33 MIU/ML 0.34-5.60 Lyme Disease Serology Negative Negative 60 CBC Auto Diff 06/13/2011 White Blood Count [...] mmol/L 22-32 Anion Gap 7.0 mmol/L 2-11 61 Glucose 97 mg/dL 70-100 BUN 14 mg/dL 6-24 Creatinine 0.9 mg/dL 0.50-1.40 One Over Creatinine 1.11 BUN/Creatinine Ratio 15.6 8-20 Calcium 9.4 mg/dL 8.1-9.9 Total Protein 6.2 GM/DL 6.2-8.1 Albumin 4.1 GM/DL 3.2-5.2 Globulin 2.1 GM/DL 2-4 Albumin/Globulin Ratio 2.0 1-3 Bilirubin Total 1.7 mg/dL High 0.4-1.5 62 Alkaline Phosphatase 50 U/L 39-117 Alt (SGPT) 14 U/L Low 17-63 Ast (Sgot) 18 U/L 12-42 eGFR Non- 84.4 > 60 eGFR 108.6 > 60 63 Laboratory test finding 06/13/2011 Erythrocyte Sed Rate 5 MM/HR 0-40 Rheumatoid Factor < 15 IU/mL <15 64 Pattie (Antinuclear Antibodies) 06/13/2011 Antinuclear AB NEGATIVE Negative Testosterone Free & Total 06/13/2011 Free Testosterone 6.2 ng/dL 9-30 65 Total Testosterone 327 ng/dL 240-950 66 Laboratory test finding 05/15/2011 PSA,Diagnostic 2.96 NG/ML 0-4 67 Laboratory test finding 02/15/2011 PSA,Diagnostic 3.17 NG/ML 0-4 68 Laboratory test finding 12/27/2010 PSA,Diagnostic 9.59 NG/ML High 0-4 69 Laboratory test finding 12/07/2010 PSA,Diagnostic 50.49 NG/ML High 0-[address] Saab's Lab Panel 09/05/2010 TSH 2.08 MIU/ML 0.34-5.60 Comp Metabolic Panel 09/05/2010 Sodium 138 mmol/L [...] > 60 eGFR 124.8 > 60 73 Lipid Profile (Trig/Chol/HDL) 09/05/2010 Triglyceride 42 mg/dL 40-200 Cholesterol 176 mg/dL Less Than 200 74 High Density Lipoprotein 68 mg/dL High 40-60 75 Cholesterol/HDL Ratio 2.59 AVERAGE 1-4.97 Low Density Lipoprotein 100 mg/dL Less Than 100 76 CBC Auto Diff 09/05/2010 White Blood Count [...] Eosinophils 0.1 0-0.6 Abs Basophils 0 0-0.2 CBC With Electronic Diff 09/01/2009 White Blood [...] Abs Basophils 0 0-0.2 Lipid Profile (Trig/Chol/HDL) 09/01/2009 Triglyceride 47 mg/dL 40-200 Cholesterol 170 mg/dL Less Than 200 77 High Density Lipoprotein 63 mg/dL High 40-60 78 Cholesterol/HDL Ratio 2.70 AVERAGE 1-4.97 Low Density Lipoprotein 98 mg/dL Less Than 100 79 Comp Metabolic Panel 09/01/2009 Sodium 135 mmol/L 135-145 Potassium 4.7 mmol/L 3.5-5.0 Chloride 103 mmol/L 101-111 Co2 (Carbon Dioxide) 29.0 mmol/L 22-32 Anion Gap 3.0 mmol/L 2-11 80 Glucose 110 mg/dL High 70-100 81 BUN 17 mg/dL 6-24 Creatinine 1.00 mg/dL 0.50-1.40 One Over Creatinine 1.00 BUN/Creatinine Ratio 17.0 8-20 Calcium 8.6 mg/dL 8.1-9.9 82 Total Protein 5.9 GM/DL Low 6.2-8.1 Albumin 4.0 GM/DL 3.2-5.2 Globulin 1.9 GM/DL Low 2-4 Albumin/Globulin Ratio 2.1 1-3 Bilirubin Total 0.9 mg/dL 0.4-1.5 83 Alkaline Phosphatase 69 U/L 39-117 Alt (SGPT) 14 U/L Low 17-63 Ast (Sgot) 19 U/L 12-42 eGFR Non- 80.0 > 60 eGFR 96.7 > [address] Saab's Lab Panel 09/01/2009 TSH 1.46 MIU/ML 0.34-5.60 Laboratory test finding 01/12/2009 PSA,Diagnostic 2.00 NG/ML 0-4 85, 86 CBC With Electronic 08/11/2008 White Blood Count 4.6 CUMM Low 4.8-10.8 Diff Red Cell Count 4.54 CUMM Low 4.6-6.2 [...] 22-32 Anion Gap 1.0 mmol/L Low 2-11 87 Glucose 103 mg/dL High 70-100 88 BUN 12 mg/dL 6-24 Creatinine 0.80 mg/dL 0.50-1.40 One Over Creatinine 1.20 BUN/Creatinine Ratio 15.0 8-20 Calcium 9.3 mg/dL 8.1-9.9 89 Total Protein 5.7 GM/DL Low 6.2-8.1 Albumin 3.9 GM/DL 3.2-5.2 Globulin 1.8 GM/DL Low 2-4 Albumin/Globulin Ratio 2.2 1-3 Bilirubin Total 1.2 mg/dL 0.4-1.5 90 Alkaline Phosphatase 54 U/L 39-117 Alt (SGPT) 14 U/L Low 17-63 Ast (Sgot) 19 U/L 12-42 Lipid Profile (Trig/Chol/HDL) 08/11/2008 Triglyceride 24 mg/dL Low 40-200 Cholesterol 176 mg/dL Less Than 200 91 High Density Lipoprotein 66 mg/dL High 40-60 92 Cholesterol/HDL Ratio 2.67 AVERAGE 1-4.97 Low Density Lipoprotein 105 mg/dL High Less Than 100 93 Laboratory test finding 08/11/2008 TSH 1.07 MIU/ML 0.34-5.60 Laboratory test finding 01/01/2008 PSA,Diagnostic 1.59 NG/ML 0-4 94 CBC With Electronic Diff 07/10/2007 White Blood Count 4.7 CUMM Low 4.8- 10.8 85 Abs Basophils 0 0-0.2 85 Abs Eosinophils 0 0-0.6 85 Absolute Neutrophil Count 2.9 1.5-7.7 85 Abs Lymphs 1.3 1.0-4.8 85 Abs Mononuclear 0.4 0-0.8 85 Basophil % 0.6 % 0-2 85 Hematocrit 42 % 42-52 85 Hemoglobin 14.4 g/dL 14.0-18.0 85 Eosinophil % 0.8 % 0-6 85 Gran % 61.5 % 38-83 85 Lymph % 28.0 % 20-45 85 Mean Corpuscular HGB Cone 35 g/dL 32-36 85 Mean Corpuscular Hemoglob 33 pg High 27-31 85 Mean Corpuscular Volume 96 um3 High 80-94 85 Mean Platelet Volume 10.2 um3 7.4-10.4 85 Mononuclear % 9.1 % High 1-9 85 Platelet Count 237 CUMM 150-450 85 Red Cell Count 4.35 CUMM Low 4.6-6.2 85 Redcell Distribution WDTH 14 % 10.5-15 85 Comp Metabolic Panel 07/10/2007 One Over Creatinine 1.11 85 Anion Gap -3.0 mmol/L Low 2-11 85, 95 Albumin/Globulin Ratio 1.6 1-3 85 Albumin 3.7 GM/DL 3.2-5.2 85 Alkaline Phosphatase 51 U/L 39-117 85 Alt (SGPT) 14 U/L Low 17-63 85 Ast (Sgot) 18 U/L 12-42 85 BUN 18 mg/dL 6-24 85 Calcium 8.7 mg/dL 8.7-10.2 85 Chloride 110 mmol/L 101-111 85 Co2 (Carbon Dioxide) 31.0 mmol/L 22-32 85 Globulin 2.3 GM/DL 2-4 85 Glucose 100 mg/dL 70-105 85 Potassium 4.8 mmol/L 3.5-5.0 85 Sodium 138 mmol/L 135-145 85 Bilirubin Total 0.9 mg/dL 0.4-1.5 85 Total Protein 6.0 GM/DL Low 6.2-8.1 85 BUN/Creatinine Ratio 20.0 8-20 85 Creatinine 0.9 mg/dL 0.5-1.4 85 Lipid Profile 07/10/2007 Cholesterol/HDL Ratio 2.87 AVERAGE 1-4.97 85 (Trig/Chol/HDL) Cholesterol 172 mg/dL Less Than 200 85, 96 Triglyceride 31 mg/dL Low 40-200 85 High Density Lipoprotein 60 mg/dL 40-60 85, 97 Low Density Lipoprotein 106 mg/dL High Less Than 100 85, 98 Laboratory test finding 07/10/2007 PSA Screening 2.29 NG/ML 0-4 85, 99 TSH 1.46 MIU/ML 0.34-5.60 85 1 Because ethnic data is not always readily [...] 15-29 5 Kidney failure <15 (or dialysis) 2 >100 to <200 pg/mL: likely compensated congestive heart failure (CHF) 200 to 400 pg/mL: likely moderate CHF >400 pg/mL: likely moderate to severe CHF 3 [employer]: [id number] Desirable: <150 Borderline High: 150-199 High: 200-499 Very High: >500 5 Desirable: <200 Borderline High: 200-239 High: >239 6 Low: <40 Desirable: 40-60 High: >60 7 Desirable: <100 Near Optimal: 100-129 Borderline High: 130-159 High: 160-189 Very High: >189 8 Serum levels of PSA measured using the [employer] DXI Hybritech immunoassay should not be interpreted as absolute evidence of the presence or absence of disease. The PSA value should be used in conjunction with other pertinent clinical diagnostic procedures. The values obtained with different assay methods or kits cannot be used interchangeably. 9 [id number] SEE RESULT BELOW Name: CHRIS WALLIS JR : [address]: Amee Banuelos MD Acct: [id number] Unit: [id number] AGE: 71 Location: [facility] Re10/07/16 SEX: M Status: DEP ER SPEC: [id number] JC: 10/07/1638 [facility] DR: Amee Banuelos MD REQ: [id number] RECD: 10/07/16 STATUS: NATANAEL ESCOBAR DR: Geraldo Saab III, MD _ SOURCE: URINE SPDESC: ORDERED: Urine Culture COMMENTS: [id number] Procedure Result Reported Site Urine Culture Final 10/08/16- 1250 ML No Growth (<1,000 CFU/mL) * ML - MAIN LAB (PSC1) . END OF REPORT * ML=Testing performed at Main Lab DEPARTMENT OF PATHOLOGY, [address] [place] [address] Jimmy Prater M.D. Director [facility] # [id number] Casino Investigator: [id number] 12 Because ethnic data is not always readily [...] 15-29 5 Kidney failure <15 (or dialysis) 13 >100 to <200 pg/mL: likely compensated congestive heart failure (CHF) 200 to 400 pg/mL: likely moderate CHF >400 pg/mL: likely moderate to severe CHF 14 Desirable <150 Borderline high 150-199 High 200-499 Very High >500 15 Desirable <200 Borderline high 200-239 High >239 16 Low <40 Desirable: 40-60 High: >60 17 Desirable: <100 mg/dL Near Optimal: 100-129 mg/dL Borderline High: 130-159 mg/dL High: 160-189 mg/dL Very High: >189 mg/dL 18 Because ethnic data is not always readily [...] 15-29 5 Kidney failure <15 (or dialysis) 19 *Ascorbic acid is present which may interfere with detection of blood. 20 Acute inflammation: >10.00 21 Reference Range and Interpretation: TnI (ng/mL) Interpretation Less Than 0.03 ng/mL Not supportive of diagnosis of RI 0.03 - 0.50 ng/mL Indeterminate: suggest serial studies if clinically indicated. Greater than 0.5 ng/mL Consistent with diagnosis of RI 22 >100 to <200 pg/mL: likely compensated congestive heart failure (CHF) 200 to 400 pg/mL: likely moderate CHF >400 pg/mL: likely moderate to severe CHF 23 [place] Severe Sepsis and Septic Shock Management Bundle Measure requires all lactic acids initially measuring >2.0 mmol/L be repeated. 24 Because ethnic data is not always [...] 5 Kidney failure <15 (or dialysis) 25 Serum levels of PSA measured using the [employer] DXI Hybritech immunoassay should not be interpreted as absolute evidence of the presence or absence of disease. The PSA value should be used in conjunction with other pertinent clinical diagnostic procedures. The values obtained with different assay methods or kits cannot be used interchangeably. 26 CALL RESULTS TO TODAY [phone] Reference Range and Interpretation: TnI (ng/mL) Interpretation Less Than 0.03 ng/mL Not supportive of diagnosis of RI 0.03 - 0.50 ng/mL Indeterminate: suggest serial studies if clinically indicated. Greater than 0.5 ng/mL Consistent with diagnosis of RI 28 CALL RESULTS TO TODAY [phone] 29 Because ethnic data is not always readily [...] 15-29 5 Kidney failure <15 (or dialysis) 30 >100 to <200 pg/mL: likely compensated congestive heart failure (CHF) 200 to 400 pg/mL: likely moderate CHF >400 pg/mL: likely moderate to severe CHF 31 Because ethnic data is not always readily [...] 15-29 5 Kidney failure <15 (or dialysis) 32 Desirable <150 Borderline high 150-199 High 200-499 Very High >500 33 Desirable <200 Borderline high 200-239 High >239 34 Low <40 Desirable: 40-60 High: >60 35 Desirable: <100 mg/dL Near Optimal: 100-129 mg/dL Borderline High: 130-159 mg/dL High: 160-189 mg/dL Very High: >189 mg/dL 36 FASTING 37 FASTING 38 Desirable <150 Borderline high 150-199 High 200-499 Very High >500 39 Desirable <200 Borderline high 200-239 High >239 40 Low <40 Desirable: 40-60 High: >60 41 Desirable <100 Near Optimal 100-129 Borderline high 130-159 High 160-189 Very High >189 42 Therapeutic target for the treatment of diabetes Mellitus patients is <7% HBA1C, and in selective patients <6.0%.Please refer to [place] Diabetes Association Diabetic care guidelines for further information. 43 Because ethnic data is not always readily [...] 15-29 5 Kidney failure <15 (or dialysis) 44 Serum levels of PSA measured using the [employer] DXI Hybritech immunoassay should not be interpreted as absolute evidence of the presence or absence of disease. The PSA value should be used in conjunction with other pertinent clinical diagnostic procedures. The values obtained with different assay methods or kits cannot be used interchangeably. 45 PT IS FASTING 46 PT IS FASTING 47 HDL Interpretation: Undesirable: High Risk: Less than 40 MG/DL Desirable: Low Risk: Greater than 60 MG/DL 48 LDL Interpretation: Low Risk Optimal Level: LDL Less than 100 MG/DL Near or Above Optimal: LDL 100-129 MG/DL Borderline High Risk: LDL 130-159 MG/DL High Risk: LDL 160-189 MG/DL Very High Risk: LDL Greater than 189 MG/DL 49 Because ethnic data is not always readily [...] 15-29 5 Kidney failure <15 (or dialysis) 50 Serum levels of PSA measured using the [employer] DXI Hybritech immunoassay should not be interpreted as absolute evidence of the presence or absence of disease. The PSA value should be used in conjunction with other pertinent clinical diagnostic procedures. The values obtained with different assay methods or kits cannot be used interchangeably. 51 Anion gap measurement may be of limited value in the presence of any alkalosis, especially in a combined acid base disorder. . 52 A metabolite of Naproxen, O-desmethylnaproxen, has been shown to interfere with the Jendrassik-Kevin method for measuring total bilirubin. Samples from patients who have taken Naproxen have shown spurious elevation in total bilirubin levels. 53 Because ethnic data is not always readily [...] 15-29 5 Kidney failure <15 (or dialysis) 54 CHOLESTEROL INTERPRETATION: Desirable: Less than 200 MG/DL Borderline-High Risk: 200-239 MG/DL High-Risk: 240 MG/DL and over 55 HDL INTERPRETATION: Undesirable: High Risk: Less than 40 MG/DL Desirable: Low Risk: Greater than 60 MG/DL 56 LDL INTERPRETATION: Low Risk Optimal Level: LDL Less than 100 MG/DL Near or Above Optimal: LDL 100-129 MG/DL Borderline High Risk: LDL 130-159 MG/DL High Risk: LDL 160-189 MG/DL Very High Risk: LDL Greater than 189 MG/DL 57 * SERUM LEVELS OF PSA MEASURED USING THE [employer] ACCESS HYBRITECH IMMUNOASSAY SHOULD NOT BE INTERPRETED ABSOLUTE EVIDENCE OF THE PRESENCE OR ABSENCE OF DISEASE. THE PSA VALUE SHOULD BE USED IN CONJUNCTION WITH OTHER PERTINENT CLINICAL DIAGNOSTIC PROCEDURES. The values obtained with different assay methods or kits cannot be used interchangeably. 58 * SERUM LEVELS OF PSA MEASURED USING THE [employer] ACCESS HYBRITECH IMMUNOASSAY SHOULD NOT BE INTERPRETED ABSOLUTE EVIDENCE OF THE PRESENCE OR ABSENCE OF DISEASE. THE PSA VALUE SHOULD BE USED IN CONJUNCTION WITH OTHER PERTINENT CLINICAL DIAGNOSTIC PROCEDURES. The values obtained with different assay methods or kits cannot be used interchangeably. 59 RUN DATE: 07/19/11 [facility] NMI LIVE PAGE 1 RUN TIME: 1149 Specimen Inquiry RUN USER: INTERFACE Name: CHRIS WALLIS JR Status: REG REF Re07/17/11 Age/Sex: 66/M Unit#: [id number] Location: [facility] : [birth year] SPEC #: [id number] JC: 07/17/11 STATUS: COMP REQ #: [id number] RECD: 07/17/[address]: Geraldo Saab III, MD SOURCE: URINE ENTR: 07/17/[address]: RONNIE: ORDERED: URINE C S QUERIES: MEDENT REQUISITION # [id number] ACT WKST: UR 07/19/11 #1 Procedure Result Verified Site > URINE CULTURE SENSITIVI Final 07/19/11- 1148 ML Organism 1 ESCHERICHIA COLI COLONY COUNT >100,000 ORGANISMS/ML (MANY) 1. ESCHERICHIA COLI RX M.I.C. ------ --------- AMIKACIN S <=2 LEVOFLOXACIN S <=0.12 AMPICILLIN S <=2 CEFAZOLIN S <=4 CEFTRIAXONE S <=1 CIPROFLOXACIN S <=0.25 GENTAMICIN S <=1 TIGECYCLINE S <=0.5 CEFTAZIDIME S <=1 IMIPENEM S <=1 NITROFURANTOIN S <=16 TRIMETH-SULFA S <=20 *These antibiotics are not available in the [facility] Formulary. Contact the Microbiology Department for any additional antibiotic reporting. [facility] State Permit #[id number] [address] [place] [address] DEPARTMENT OF PATHOLOGY, [address] [place] [address] [facility] Permit #[id number] Jimmy Prater M.D. Director Michelle Nelson M.D. Rides Supervisor 60 Serologic response to B. burgdorferi infection is not detected, but cannot rule out early infection during which low or undetectable antibody levels to B. burgdorferi may be present. If clinically indicated, a new serum specimen should be submitted in 7-14 days. Test Performed by: [facility] Dpt of Lab Med and Pathology [address] [place] [address] E Commerce Marketing Manager: Kobe Jimenez III, M.D. 61 Anion gap measurement may be of limited value in the presence of any alkalosis, especially in a combined acid base disorder. . 62 A metabolite of Naproxen, O-desmethylnaproxen, has been shown to interfere with the Jendrassik-[employer] method for measuring total bilirubin. Samples from patients who have taken Naproxen have shown spurious elevation in total bilirubin levels. 63 Because ethnic data is not always readily [...] 15-29 5 Kidney failure <15 (or dialysis) 64 Test Performed by: [facility] Dpt of Lab Med and Pathology [address] [place] [address] E Commerce Marketing Manager: Kobe Jimenez III, M.D. 65 Test Performed by: [facility] Dpt of Lab Med and Pathology [address] [place] [address] E Commerce Marketing Manager: Kobe Jimenez III, M.D. 66 Test Performed by: [facility] Dpt of Lab Med and Pathology [address] [place] [address] E Commerce Marketing Manager: Kobe Jimenez III, M.D. 67 * SERUM LEVELS OF PSA MEASURED USING THE [employer] ACCESS HYBRITECH IMMUNOASSAY SHOULD NOT BE INTERPRETED ABSOLUTE EVIDENCE OF THE PRESENCE OR ABSENCE OF DISEASE. THE PSA VALUE SHOULD BE USED IN CONJUNCTION WITH OTHER PERTINENT CLINICAL DIAGNOSTIC PROCEDURES. The values obtained with different assay methods or kits cannot be used interchangeably. 68 * SERUM LEVELS OF PSA MEASURED USING THE [employer] ACCESS HYBRITECH IMMUNOASSAY SHOULD NOT BE INTERPRETED ABSOLUTE EVIDENCE OF THE PRESENCE OR ABSENCE OF DISEASE. THE PSA VALUE SHOULD BE USED IN CONJUNCTION WITH OTHER PERTINENT CLINICAL DIAGNOSTIC PROCEDURES. 69 * SERUM LEVELS OF PSA MEASURED USING THE [employer] ACCESS HYBRITECH IMMUNOASSAY SHOULD NOT BE INTERPRETED ABSOLUTE EVIDENCE OF THE PRESENCE OR ABSENCE OF DISEASE. THE PSA VALUE SHOULD BE USED IN CONJUNCTION WITH OTHER PERTINENT CLINICAL DIAGNOSTIC PROCEDURES. 70 * SERUM LEVELS OF PSA MEASURED USING THE [employer] ACCESS HYBRITECH IMMUNOASSAY SHOULD NOT BE INTERPRETED ABSOLUTE EVIDENCE OF THE PRESENCE OR ABSENCE OF DISEASE. THE PSA VALUE SHOULD BE USED IN CONJUNCTION WITH OTHER PERTINENT CLINICAL DIAGNOSTIC PROCEDURES. 71 Anion gap measurement may be of [...] 5 Kidney failure <15 (or dialysis) 74 CHOLESTEROL INTERPRETATION: Desirable: Less than 200 MG/DL Borderline-High Risk: 200-239 MG/DL High-Risk: 240 MG/DL and over 75 HDL INTERPRETATION: Undesirable: High Risk: Less than 40 MG/DL Desirable: Low Risk: Greater than 60 MG/DL 76 LDL INTERPRETATION: Low Risk Optimal Level: LDL Less than 100 MG/DL Near or Above Optimal: LDL 100-129 MG/DL Borderline High Risk: LDL 130-159 MG/DL High Risk: LDL 160-189 MG/DL Very High Risk: LDL Greater than 189 MG/DL 77 CHOLESTEROL INTERPRETATION: Desirable: Less than 200 MG/DL Borderline-High Risk: 200-239 MG/DL High-Risk: 240 MG/DL and over 78 HDL INTERPRETATION: Undesirable: High Risk: Less than 40 MG/DL Desirable: Low Risk: Greater than 60 MG/DL 79 LDL INTERPRETATION: Low Risk Optimal Level: LDL Less than 100 MG/DL Near or Above Optimal: LDL 100-129 MG/DL Borderline High Risk: LDL 130-159 MG/DL High Risk: LDL 160-189 MG/DL Very High Risk: LDL Greater than 189 MG/DL 80 Anion gap measurement may be of limited value in the presence of any alkalosis, especially in a combined acid base disorder. . 81 Note change in reference range as of 11/14/07. The change was based on recommendations from the [place] Diabetes Association. 82 Please note change in reference range effective 07 . 83 A metabolite of Naproxen, O-desmethylnaproxen, has been shown to interfere with the Jendrassik-Kevin method for measuring total bilirubin. Samples from patients who have taken Naproxen have shown spurious elevation in total bilirubin levels. 84 Because ethnic data is not always readily [...] 15-29 5 Kidney failure <15 (or dialysis) 85 PATIENT MAY HAVE RESULTS PER DOCTOR'S AUTHORIZATION. Questions regarding this report should be directed to your doctor. 86 * SERUM LEVELS OF PSA MEASURED USING THE [employer] ACCESS HYBRITECH IMMUNOASSAY SHOULD NOT BE INTERPRETED ABSOLUTE EVIDENCE OF THE PRESENCE OR ABSENCE OF DISEASE. THE PSA VALUE SHOULD BE USED IN CONJUNCTION WITH OTHER PERTINENT CLINICAL DIAGNOSTIC PROCEDURES. 87 Anion gap measurement may be of limited value in the presence of any alkalosis, especially in a combined acid base disorder. . 88 Note change in reference range as of 11/14/07. The change was based on recommendations from the [place] Diabetes Association. 89 Please note change in reference range effective 07 . 90 A metabolite of Naproxen, O-desmethylnaproxen, has been shown to interfere with the Jendrbruceik-Kevin method for measuring total bilirubin. Samples from patients who have taken Naproxen have shown spurious elevation in total bilirubin levels. 91 CHOLESTEROL INTERPRETATION: Desirable: Less than 200 MG/DL Borderline-High Risk: 200-239 MG/DL High-Risk: 240 MG/DL and over 92 HDL INTERPRETATION: Undesirable: High Risk: Less than 40 MG/DL Desirable: Low Risk: Greater than 60 MG/DL 93 LDL INTERPRETATION: Low Risk Optimal Level: LDL Less than 100 MG/DL Near or Above Optimal: LDL 100-129 MG/DL Borderline High Risk: LDL 130-159 MG/DL High Risk: LDL 160-189 MG/DL Very High Risk: LDL Greater than 189 MG/DL 94 * SERUM LEVELS OF PSA MEASURED USING THE [employer] ACCESS HYBRITECH IMMUNOASSAY SHOULD NOT BE INTERPRETED ABSOLUTE EVIDENCE OF THE PRESENCE OR ABSENCE OF DISEASE. THE PSA VALUE SHOULD BE USED IN CONJUNCTION WITH OTHER PERTINENT CLINICAL DIAGNOSTIC PROCEDURES. 95 Anion gap measurement may be of limited value in the presence of any alkalosis, especially in a combined acid base disorder. . 96 CHOLESTEROL INTERPRETATION: Desirable: Less than 200 MG/DL Borderline-High Risk: 200-239 MG/DL High-Risk: 240 MG/DL and over 97 HDL INTERPRETATION: Undesirable: High Risk: Less than 40 MG/DL Desirable: Low Risk: Greater than 60 MG/DL 98 LDL INTERPRETATION: Low Risk Optimal Level: LDL Less than 100 MG/DL Near or Above Optimal: LDL 100-129 MG/DL Borderline High Risk: LDL 130-159 MG/DL High Risk: LDL 160-189 MG/DL Very High Risk: LDL Greater than 189 MG/DL 99 * SERUM LEVELS OF PSA MEASURED USING THE [employer] ACCESS HYBRITECH IMMUNOASSAY SHOULD NOT BE INTERPRETED ABSOLUTE EVIDENCE OF THE PRESENCE OR ABSENCE OF DISEASE. THE PSA VALUE SHOULD BE USED IN CONJUNCTION WITH OTHER PERTINENT CLINICAL DIAGNOSTIC PROCEDURES. Procedures Date CPT Code Description Status 12/19/2017 00316 EKG Tracing & Interpretation Completed 08/07/2017 37048 ECG Monitor/Recording W/Visual Superimposition Scanning Completed 07/13/2017 49735 Treadmill Interp/Report Only Completed 07/13/2017 26629 Stress Test Supervsn W/Out I/R Completed 07/10/2017 73810 ECHO Transthoracic, Real-Time 2D With Doppler And Color Completed Flow 07/10/2017 37840 ECHO Transthoracic, Real-Time 2D With Doppler And Color Completed Flow 06/21/2017 19968 EKG Tracing & Interpretation Completed 09/04/2016 Colonoscopy Completed 06/20/2016 45751 EKG Tracing & Interpretation Completed 04/07/2016 20604 EKG Tracing & Interpretation Completed 01/05/2016 66386 EKG Tracing & Interpretation Completed 04/21/2015 18490 EKG Tracing & Interpretation Completed 12/16/2014 51101 ECHO Transthoracic, Real-Time 2D With Doppler And Color Completed Flow 12/08/2014 70713 EKG Tracing & Interpretation Completed 12/04/2014 43368 Treadmill Interp/Report Only Completed 12/04/2014 39618 Stress Test Supervsn W/Out I/R Completed 09/24/2014 94852 Pulmonary Function><Bronchodil Completed 09/24/2014 18746 Diffusing Capacity Completed 09/24/2014 60219 Plethysmography Determination Lung Volumes & Per Airway Completed Resist 09/09/2014 53328 ECHO Transthoracic, Real-Time 2D With Doppler And Color Completed Flow 09/07/2014 54651 EKG Tracing & Interpretation Completed 06/18/2014 88831 Repair Hernia Inguinal > 5Yrs, Reducible Completed 06/18/2014 76338 Repair Hernia Umbilical > 5 Yrs, Reducible Completed 06/12/2014 97102 ECHO Transthoracic, Real-Time 2D With Doppler And Color Completed Flow 05/29/2014 04651 Treadmill Interp/Report Only Completed 05/29/2014 19619 Stress Test Supervsn W/Out I/R Completed 04/21/2014 83417 EKG Tracing & Interpretation Completed 09/24/2013 93756 Holter Monitoring 24 HR New Completed 09/09/2013 76453 ECHO Stress Test Incl Perf Contiuous ekg Monitoring Completed W/Phys Superv 09/05/2013 60937 ECHO Transthoracic, Real-Time 2D With Doppler And Color Completed Flow 08/08/2013 05112 EKG Tracing & Interpretation Completed 05/30/2012 12859 EKG Tracing & Interpretation Completed 11/23/2011 08333 Treadmill Interp/Report Only Completed 11/23/2011 95725 Stress Test Supervsn W/Out I/R Completed 11/22/2011 00385 ECHO Stress Test Incl Perf Contiuous ekg Monitoring Completed W/Phys Superv 11/22/2011 66078 ECHO Stress Test Incl Perf Contiuous ekg Monitoring Completed W/Phys Superv 08/24/2011 81349 Color Flow Doppler/Interp & Reprt Completed 08/24/2011 31653 Pulse Wave/Continuous-Interp.RPT Completed 08/24/2011 18953 ECHO Transthorasic Realtime 2D W Doppler & Color Flow Completed Hosp 08/17/2011 36046 EKG Tracing & Interpretation Completed 09/22/2005 Colonoscopy Completed Encounters Type Date Location Provider CPT E/M Dx Office Visit 12/19/2017 2:30p [facility] Nahun Clay, 29735 G47.33 M.Jon I49.3 R42 I49.5 Office Visit 10/19/2017 10:30a [facility] Shira Loredo, 65172 G47.33 Services Of [facility] SON NARVAEZ, [facility] R68.84 Office Visit 08/21/2017 11:30a [facility] Of Isabel Correa, 36904YBB R42 [facility] N.P. I49.3 R94.39 R06.00 Office Visit 08/15/2017 3:40p [facility] Internal Medicine Geraldo Saab, 27126 M17.0 - Gabriel Salas Office Visit 07/27/2017 10:45a [facility] Shira Loredo, 43352 G47.33 Services Of [facility] SON NARVAEZ, [facility] Office Visit 07/11/2017 3:45p [facility] Ck Alaniz, 58043 G20 Services Of [facility] Josue R68.84 Office Visit 06/21/2017 9:00a [facility] Of Nahun Clay, 71050 G20 Nena Salas R94.39 R42 R06.00 I49.3 Office Visit 04/12/2017 11:40a [facility] Internal Medicine Geraldo Saab, 72260 M26.623 - Gabriel Salas Office Visit 04/10/2017 1:20p [facility] Internal Medicine Geraldo Saab, 41855 Z00.00 - Gabriel Salas G20 G47.30 E78.00 N40.0 M25.569 K21.9 Office Visit 12/29/2016 3:30p [facility] Ck Alaniz, 72872 G20 Josue G47.30 Office Visit 07/11/2016 9:40a [facility] [place] [address] M79.672 - [place] Office Visit 06/20/2016 10:20a [facility] Nahun Clay, 54380 G20 Josue G47.30 R60.9 Office Visit 06/07/2016 3:30p [facility] Alaniz, 97300 G20 Services Of Nena M.DPriti Office Visit 05/18/2016 10:40a [facility] Internal Medicine Kusum Bermudez, N.P. 84257 J20.9 - Barron J01.90 Office Visit 05/05/2016 11:45a [facility] Shira Loredo, 37883 G47.33 Services Of [facility] SON NARVAEZ, [facility]- Office Visit 04/07/2016 9:40a [facility] Internal Medicine Geraldo Saab, 81436 Z00.01 - Gabriel Salas G20 G47.30 E78.00 N40.0 R60.0 Office Visit 03/10/2016 11:00a [facility] Internal Medicine Geradlo Saab, 27050 J06.9 - Gabriel Salas Office Visit 01/28/2016 9:00a [facility] Internal Medicine Maxi Kaiser, 84066 D17.21 - Gabriel Salas R29.6 R22.31 Office Visit 01/05/2016 11:20a [facility] Internal Medicine Geraldo Saab, 74213 Z01.810 - Gabriel Salas G20 G47.30 Office Visit 11/24/2015 9:15a [facility] Ck Alaniz 27565 G20 Josue Office Visit 06/01/2015 2:45p [facility] kC Alaniz 94798 G20 Of Nena Salas Office Visit 04/21/2015 11:40a [facility] Nahun Holder 24977 G20 Josue Clay E78.0 R07.9 R06.00 R94.31 Office Visit 02/10/2015 3:15p [facility] Alaniz 04085 G20 Services Of [facility] Josue Office Visit 12/24/2014 2:40p [facility] Nahun Clay 15756 E78.0 Josue R07.9 R06.00 R00.2 Office Visit 12/03/2014 2:00p [facility] HEATHER Marquez 26946 426.4 272.0 786.50 427.69 Office Visit 12/02/2014 4:00p [facility] Internal Medicine Geraldo Saab, 82888 786.50 - Barron Salas Office Visit 11/18/2014 2:30p [facility]k Alaniz 84841 327.23 Services Of [facility] Sapna.DPriti 332.0 Office Visit 10/06/2014 10:15a [facility] Shira Loredo, 83792 327.23 Services Of [facility] SOLANGE RN, [facility]- Office Visit 10/01/2014 2:45p [facility] [place] [address] 786.09 Services Of [facility] Office Visit 09/07/2014 3:40p [facility] Nahun Clay, 30177 786.09 M.DPriti 794.31 426.4 Office Visit 09/03/2014 1:00p [facility] Josef Malik M.D. 80750 786.05 Services Of [facility] Office Visit 08/31/2014 2:40p [facility] Internal Medicine - Geraldo Saab, 38248 V06.1 Barron Salas V03.82 786.05 Office Visit 05/29/2014 11:30a [facility] Nahun Clay, 22718 550.90 Josue 272.0 426.4 794.31 414.01 Office Visit 05/21/2014 4:00p [facility] Internal Medicine Geraldo Saab, 84209 550.90 - [place] M.Jon Office Visit 05/07/2014 4:00p [facility] Internal Medicine Geraldo Saab, 92712 550.90 - [place] M.DPriti Office Visit 04/28/2014 2:45p [facility] Ck Aalniz, 97075 332.0 Services Of [facility] KeylaDPriti Office Visit 04/23/2014 9:20a [facility] Internal Medicine Geraldo Saab, 50350 465.9 - [place] Josue 332.0 Office Visit 04/21/2014 3:00p [facility] Nahun Clay M.D. 21820 272.0 794.31 426.4 Office Visit 03/02/2014 2:20p [facility] Internal Medicine Geraldo Saab, 23186 465.9 - [place] MPritiDPriti Office Visit 10/29/2013 1:45p [facility]k Alaniz, 93046 332.0 Services Of Bed Worker M.D. Office Visit 08/08/2013 3:20p [facility] Nahun Clay, 52258 794.31 M.DPriti 332.0 272.0 414.01 782.3 Office Visit 07/15/2013 3:00p [facility] Alaniz, 45093 332.0 Services Of Bed Worker M.D. Office Visit 06/23/2013 11:00a [facility] Geraldo Saab, 44377 790.21 - [place] M.DPriti 780.57 332.0 272.0 Office Visit 01/23/2013 10:30a [facility] Samra Espinoza, N.P. 22435 477.9 - [place] 465.9 Office Visit 01/15/2013 2:45p [facility], 31095 332.0 Services Of Bed Worker M.D. Office Visit 08/27/2012 1:00p [facility] Geraldo Saab, 11728 553.1 - [place] M.D. Office Visit 08/02/2012 10:20a [facility] Geraldo Saab, 28004 724.5 - [place] M.DPriti Office Visit 07/16/2012 2:45p [facility], 13903 332.0 Services Of Bed Worker M.D. Office Visit 06/19/2012 2:40p [facility] Geraldo Saab, 85117 719.46 - [place] M.D. Office Visit 06/10/2012 10:40a [facility] Geraldo Saab, 43918 381.19 - [place] M.D. Office Visit 05/30/2012 10:20a [facility] Nahun Clay, 29097 786.09 M.DPriti 426.52 794.31 Office Visit 05/03/2012 11:20a [facility] Geraldo Saab, 80924 465.9 - [place] M.D. 382.9 Office Visit 04/03/2012 3:40p [facility] Geraldo Saab, 57632 726.19 - [place] M.D. Office Visit 02/21/2012 1:20p [facility] Geraldo Saab, 41725 786.09 - [place] M.D. Office Visit 01/16/2012 2:30p [facility], 81664 332.0 Services Of Bed Worker M.D. Office Visit 12/20/2011 10:00a [facility] Geraldo Saab, 52171 780.79 - [place] M.D. 786.09 600.20 Office Visit 11/24/2011 11:15a [facility], 46850 780.93 Services Of Bed Worker M.D. 780.79 Office Visit 11/22/2011 11:30a [facility] Nahun Clay, 23495 786.05 M.D. 794.31 780.79 Office Visit 11/01/2011 1:00p [facility] Geraldo Saab, 12364 786.05 - [place] M.D. 780.93 Office Visit 08/17/2011 1:40p [facility] Geraldo Saab, 55519 786.09 - [place] M.D. Office Visit 07/17/2011 1:00p [facility] Geraldo Saab, 49078 599.0 - [place] M.DPriti 790.21 Office Visit 07/07/2011 11:40a [facility] Geraldo Saab, 03272 780.79 - [place] M.D. 784.1 Office Visit 06/20/2011 10:40a [facility] Geraldo Saab, 68101 780.79 - [place] M.D. Office Visit 06/13/2011 1:40p [facility] Geraldo Saab, 99422 780.79 - [place] M.D. Office Visit 04/19/2011 10:00a [facility] Geraldo Saab, 45080 719.46 - [place] M.D. Office Visit 12/06/2010 10:00a DO Not Use Bed Worker AT Jason Trinidad, 78919 601.1 [place] M.DPriti Office Visit 11/24/2010 1:00p DO Not Use Bed Worker AT Geraldo Saab, 78762 V70.0 [facility].D. 790.21 477.9 723.1 600.20 Office Visit 07/28/2010 4:00p DO Not Use Bed Worker AT [facility], 55848 726.19 [facility].D. 780.79 V03.82 Office Visit 04/15/2010 9:20a DO Not Use Bed Worker AT [facility], 94117 465.9 [facility].D. Office Visit 11/25/2009 3:40p DO Not Use Bed Worker AT [facility], 65587 604.90 [facility].D. Office Visit 09/09/2009 9:00a DO Not Use Bed Worker AT [facility], 27508 V70.0 [facility].D 790.21 600.20 Office Visit 05/31/2009 3:20p DO Not Use Bed Worker AT [facility], 01621 300.02 [facility].D 796.2 Office Visit 05/03/2009 2:40p DO Not Use Bed Worker AT [facility], 32260 465.9 [facility] Office Visit 12/17/2008 11:15a DO Not Use Bed Worker AT [facility], 66735 465.9 [facility].D. Office Visit 09/07/2008 9:00a [facility], 44333 V05.8 [facility].D. V70.0 602.9 Office Visit 12/20/2007 10:15a [facility], 71939 465.9 [facility] M.D. Office Visit 11/27/2007 10:30a [facility], 67207 723.1 [facility] M.D. 780.52 Office Visit 09/05/2007 9:30a [facility], 01693 724.2 [facility].D. 602.9 477.9 V70.0 Office Visit 06/20/2007 3:15p [facility], 86917 465.9 [facility] M.D. Office Visit 03/29/2007 9:15a [facility] AT [facility], 15796 724.2 [facility] Josue Plan of Care Future Appointment(s):03/15/2018 1:45 pm - Drew Thomas M.D. at [facility]10/22/2018 2:15 pm - Shira Loredo DNP, RN, CONSTRUCTION SCHEDULER- BC at [facility]01/22/2018 - Drew Thomas M.D.G20 Parkinson's diseaseFollow up:Follow up in 8 weeks (Ok to overbook) 30 minG47.33 Obstructive sleep apnea (adult) (pediatric)New Medication:Trazodone HCL 50 mgCarbidopa-Levodopa ER 50-200 mgR42 Dizziness and mqvnddnelL03.81 Unsteadiness on feetNew Therapy:Physical Therapy
--- NOTE | 2018-02-10 18:28 | ED ---
Complex/Multi-Sys Presentation - HPI Summary HPI Summary: The pt is a 73 y.o male presenting to the [facility] via ambulance with a chief complaint of weakness since 2 months ago. He is accompanied by a female draw string knotter. The EMS states that he was brought to the [facility] to be evaluated for a potential UTI. The pt states that he has been only sleeping 2 hours at night and then sporadically throughout the day (naps). He states that he is unable to control is urination and has urinary frequency. Pt states that he urinates when "rolls over" when attempting to sleep even when he has no need to urinate. Pt urinates every 30 min to 1 hour reportedly. Pt also reports of diaphoresis. The pain is rated to be 0/10 in severity. Symptoms alleviated by nothing. - History Of Current Complaint Chief Complaint: EDUrogenitalProblems Time Seen by Provider: 02/10/18 17:22 Hx Obtained From: Patient, Family/Casing Crew Onset/Duration: Lasting Weeks - 2 months Timing: Constant Aggravating Factor(s): Position Alleviating Factor(s): Nothing Associated Signs And Symptoms: Positive: Weakness, Other - Urinary incontinence , and Urinary frequency - Allergies/Home Medications Allergies/Adverse Reactions: Allergies Allergy/AdvReac Type Severity Reaction Status Date / Time ciprofloxacin [From Cipro] Allergy Unknown Verified 02/10/18 16:50 Reaction Details clopidogrel [From Plavix] Allergy Unknown Verified 02/10/18 16:50 Reaction Details minocycline Allergy Hives Verified 02/10/18 16:50 Home Medications: Home Medications Carbidopa/Levodop CR 50/200(*) [Sinemet CR 50/200(*)] 1 tab PO TID 02/10/18 [ History Confirmed 02/10/18] Glucosam/Chondr/Collagn/Hyalur [Th Glucosamine/Chondroiti] 1 cap PO DAILY [History Confirmed 02/10/18] Melatonin 5 mg PO BEDTIME PRN 02/10/18 [History Confirmed 02/10/18] traZODone TAB* [Desyrel TAB*] 25 mg PO BEDTIME PRN 02/10/18 [History Confirmed 02/10/18] PMH/Surg Hx/FS Hx/Imm Hx Endocrine/Hematology History: Denies: Hx Diabetes, Hx Thyroid Disease Cardiovascular History: Reports: Hx Hypertension - NOT ON MEDICATION, Other Cardiovascular Problems/Disorders - ISCHEMIC CVA Denies: Hx Angina, Hx Coronary Artery Disease, Hx Hypercholesterolemia, Hx Myocardial Infarction, Hx Valvular Heart Disease Respiratory History: Reports: Hx Sleep Apnea - current BiPAP user, compliant, Other Respiratory Problems/Disorders - SLEEP APNEA Denies: Hx Asthma, Hx Chronic Obstructive Pulmonary Disease (COPD) GI History: Reports: Other GI Disorders - FEELS FULL QUICKLY Denies: Hx Ulcer History: Reports: Hx Benign Prostatic Hyperplasia Musculoskeletal History: Reports: Hx Back Problems Denies: Other Musculoskeletal History Sensory History: Reports: Hx Contacts or Glasses - GLASSES, Hx Glaucoma - SUSPECT, Hx Hearing Aid - [facility] Opthamlomology History: Reports: Hx Contacts or Glasses - GLASSES, Hx Glaucoma - SUSPECT Neurological History: Reports: Hx Headaches, Hx Nerve Disease - EARLY PARKINSONS , 2011 Denies: Other Neuro Impairments/Disorders - Cancer History Cancer Type, Location and Year: BASAL CELL - Surgical History Surgery Procedure, Year, and Place: T/A A CHILD, 1951, [facility]. 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 WISDOM TEETH 1971,. basal cell FACE AND BACK SEVERAL TIMES IN PAST 10-15 YRS,. hernia repair inguinal + umbilical. Deep Brain Stimulation electrodes in place + pacer Hx Anesthesia Reactions: No Infectious Disease History: No Infectious Disease History: Denies: Hx Clostridium Difficile, Hx Hepatitis, Hx Human Immunodeficiency Virus (HIV), Hx of Known/Suspected MRSA, Hx Shingles, Hx Tuberculosis, Hx Known/ Suspected VRE, Hx Known/Suspected VRSA, History Other Infectious Disease, Traveled Outside the in Last 30 Days - Family History Known Family History: Positive: Hypertension Negative: Diabetes - Social History Occupation: Retired Alcohol Use: Occasionally Alcohol Amount: 2 glasses wine 4 days/week Substance Use Type: Reports: None Smoking Status (MU): Former Smoker Type: Pipe Amount Used/How Often: PIPE Have You Smoked in the Last Year: No Review of Systems Positive: Fatigue, Skin Diaphoresis Eyes: Negative ENT: Negative Cardiovascular: Negative Respiratory: Negative Gastrointestinal: Negative Positive: frequency, incontinence Musculoskeletal: Negative Skin: Negative Neurological: Other - Decreased sleep Positive: Weakness Psychological: Normal All Other Systems Reviewed And Are Negative: Yes Physical Exam - Summary Physical Exam Summary: Appearance: The patient is well-nourished in no acute distress and in no acute pain. Skin: The skin is Pale and diaphoretic HEENT: The head is normocephalic and atraumatic. The pupils are equal and reactive. The conjunctivae are clear and without drainage. Nares are patent and without drainage. Mouth reveals moist mucous membranes and the throat is without erythema and exudate. The external ears are intact. The ear canals are patent and without drainage. The tympanic membranes are intact. Neck: The neck is supple with full range of motion and non-tender. There are no carotid bruits. There is no neck vein distension. Respiratory: Chest is non-tender. Lungs are clear to auscultation and breath sounds are symmetrical and equal. Cardiovascular: Heart is regular rate and rhythm. There is no murmur or rub auscultated. There is no peripheral edema and pulses are symmetrical and equal. Abdomen: The abdomen is soft and non-tender. There are normal bowel sounds heard in all four quadrants and there is no organomegaly palpated. Musculoskeletal: There is no back tenderness noted. Extremities are non-tender with full range of motion. There is good capillary refill. There is no peripheral edema or calf tenderness elicited. Neurological: Patient is alert and oriented to person, place and time. The patient has symmetrical motor strength in all four extremities. Cranial nerves are grossly intact. Deep tendon reflexes are symmetrical and equal in all four extremities. Weakness Psychiatric: The patient has an appropriate affect and does not exhibit any anxiety or depression. Triage Information Reviewed: Yes Vital Signs On Initial Exam: Initial Vitals Temp Pulse Resp BP Pulse Ox 99.5 F 75 16 150/100 97 02/10/18 16:48 02/10/18 16:48 02/10/18 16:48 02/10/18 16:48 02/10/18 16:48 Vital Signs Reviewed: Yes Diagnostics - Vital Signs Vital Signs Temp Pulse Resp BP Pulse Ox 02/10/18 16:48 99.5 F 75 16 150/100 97 - Laboratory Result Diagrams: 02/10/18 18:29 02/10/18 18:29 Lab Statement: Any lab studies that have been ordered have been reviewed, and results considered in the medical decision making process. - Radiology Chest X-ray Radiology Interpretation Completed By: ED Physician - Chest X-ray reveals as per ED Physician no acute processes. - EKG 1814 EKG Rhythm: Sinus Rhythm - 70 bpm Summary of EKG Findings: EKG at 1815 reveals Right bundle branch block; Unchanged from 12/25/15 Complex Multi-Symp Course/Dx Course Of Treatment: Mr. Wallis presented to the emergency department with a concern that presented to the emergency department with a concern that he is getting weaker and weaker. This lasted a couple of months and he admits that he is no weaker today than he was a week ago. He also complains that he has frequency and incomplete voiding. He has get out of bed several times a night. He looked washed out when he came in and labs were obtained which looked okay. His UA was unremarkable. He actually looked better on reevaluation and was comfortable going home. I recommended he follow up with Dr. Thomas. - Diagnoses Provider Diagnoses: Weakness Discharge - Sign-Out/Discharge Documenting (check all that apply): Patient Departure - Discharge Home - Discharge Plan Condition: Stable Disposition: HOME Patient Education Materials: Weakness (ED) Referrals: Geraldo Saab MD [Primary Care Provider] - Nael Thomas MD [Medical Doctor] - Additional Instructions: Follow up with Dr. Thomas within 1 week. - Billing Disposition and Condition Condition: STABLE Disposition: Home - Attestation Statements Document Initiated by Scribe: Yes Documenting Scribe: Long Roy Provider For Whom Scribe is Documenting (Include Credential): Dr. Heladio Queen Scribe Attestation: I, Long Roy, scribed for Dr. Heladio Queen on 02/10/18 at 2236. Scribe Documentation Reviewed: Yes Provider Attestation: The documentation as recorded by the [email or web address] russell accurately reflects the service I personally performed and the decisions made by me, Dr. Heladio Queen
[2018-02-10 18:37] LABS: Urine Appearance Clear; Urine Blood Negative (Negative); Urine Color Yellow; Urine Ketones Trace (Negative); Urine Protein Negative (Negative); Urine Urobilinogen Negative (Negative)
[2018-02-10 18:48] LABS: ABS Basophils 0.1 10^3/ul (0-0.2); ABS Eosinophils 0 10^3/ul (0-0.6); ABS Lymphocytes 0.9 10^3/ul (1.0-4.8); ABS Monocytes 0.7 10^3/ul (0-0.8); ABS Neutrophils 4.2 10^3/ul (1.5-7.7); ABS Nucleated RBC 0 10^3/ul; Eosinophil % 0.7 % (0-6); Hematocrit 46 % (42-52); Hemoglobin 15.8 g/dl (14.0-18.0); Lymphocyte % 15.2 % (25-47); Mean Corpuscular HGB Conc 34 g/dl (31-36); Mean Corpuscular Hemoglobin 34 pg (27-31); Mean Corpuscular Volume 99 fL (80-94); Mean Platelet Volume 8.8 fL (7.4-10.4); Nucleated Red Blood Cells % 0; Platelet Count 195 10^3/ul (150-450); Red Blood Count 4.67 10^6/ul (4.00-5.40); Red Cell Distribution Width 13 % (10.5-15); White Blood Count 5.8 10^3/ul (3.5-10.8)
[2018-02-10 19:02] LABS: INR 0.95 (0.77-1.02)
[2018-02-10 19:05] LABS: EGFR Non-African American 78.7 (>60)
[2018-02-10 20:59] VITALS: BP 114/79
== END 2018-02-10 21:00 | disposition home or self-care (01) ==
LOC: ED 16:47
DX: R53.1 Weakness (principal); Z87.891 Personal history of nicotine dependence; I10 Essential (primary) hypertension; G47.30 Sleep apnea, unspecified; Z85.828 Personal history of other malignant neoplasm of skin
CPT/HCPCS: 36415; 71045; 80053; 81003; 83605; 83735; 84443; 84484; 85025; 85610; 86140; 93005; 99283

== ENCOUNTER 2018-06-07 16:28 | Emergency (ER) | payer MEDICARE, BC ==
--- OUTSIDE RECORDS SUMMARY | 2018-06-07 16:35 | XMS REPORT | Continuity of Care Document ---
:1945 External Reference #:[id number] Author Name Lynne Obando Care Team Providers Name Role Phone Geraldo Saab III, MD Primary Care Physician Unavailable Payers Date Identification Numbers Payment Provider Subscriber Effective: 2009 Policy Number: [id number] Medicare Chris Wallis PayID: [id number] [address] [place] [address] Policy Number: [id number] [facility] Chris Wallis Group Number: [id number] [address] PayID: [id number] [place] [address] Advance Directives Description No Information Available Problems Date Description Provider Status Onset: 11/24/2010 [...] of adult Shira Loredo DNP, RN, Active [employer] Onset: 01/22/2018 Dizziness and giddiness Drew Thomas M.D. Active Onset: 01/22/2018 Abnormal gait Drew Thomas M.D. Active Onset: 06/04/2018 Orthostatic hypotension Drew Thomas M.D. Active Family History Description No Information Available Social History Type Date Description Comments Sex Unknown Marital Status Lives With Occupation Retired Hand Dominance Right-handed Tobacco Use Start: Unknown Never Smoked Cigarettes Cigarette Use pipe only in the past Tobacco Use Start: Unknown Quit in 1982 Smoking Status Reviewed: 06/04/18 Quit in 1982 ETOH Use Consumes 1 glass of 2 glasses, 3-4 days wine per day weekly Recreational Drug Use Denies Drug Use Tobacco Use Start: Unknown End: Patient is a former smoke for short Unknown smoker period, [id number] Exercise Type/Frequency Exercises sporadically walks on occ for up to a half hr Allergies, Adverse Reactions, Alerts Date Description Reaction Status Severity Comments 03/28/2007 Plavix Bruise umaña Active 03/28/2007 Minocycline Hives Active Hives 07/17/2011 Cipro Cramps Active Medications Medication Date Status Form Strength Qnty SIG Indications Ordering Provider Sinemet CR 06/04 Active Tablets ER 25-100mg 360ta 3 tabs by bs mouth Josue Thomas four times a day Melatonin 03/15 Active Capsules 5mg 1 cap at bedtime Josue Thomas Famotidine 04/10 Active Tablets 40mg 90tab take one K21.9 Geraldo Cruz Sam s tablet by Josue Saab mouth once daily Azilect 05/04 Active Tablets 1mg 1 tab by mouth daily Prozac 05/31 Active Capsules 20mg 90cap take one s froy Thomas M.D. by mouth once daily Ecotrin Regular Active Tablets DR 81mg 1 PO qd Unknown Strength Flaxseed Oil Active 1000mg 1 PO two Katiana III, times per saturnino Cash MD Tamsulosin HCL Active 0.4mg 1 po qd Unknown Ciclopirox Active Cream 0.77% 30gm apply to Unknown Olamine penis qd as needed Triamcinolone Active Cream 0.1% apply Unknown Acetonide And twice a Nystatin day until clear as needed Magnesium Active Tablets 250mg 1 by Unknown mouth twice a day Finasteride Active Tablets 5mg once Hannah, daily MD Migel Glucosamine Active Capsules 1500Com take one Unknown Chondroitin 1500 capsule/t Complex Maximum ablet Strength daily by mouth Miralax Active Powder 17 grams by mouth twice a day as needed Fludrocortisone 05/20 Hx Tablets 0.1mg 30tab take 1 I95.1 Isabel Damion s tab by Sunny NAp - mouth 06/03 Sinemet CR 04/25 Hx Tablets ER 25-100mg 240ta 2 tabs by Drew melodie Thomas M.D. - four 06/04 times day (patient using this formulati on while CD/LD ER 50-200 mg are on backorder ) Sinemet ER 03/28 Hx Tablets 25-100mg 2 by Ck Bruno yulia Alaniz - danay Salas 04/15 times day Sinemet 03/27 Hx Tablets 25-100mg 240ta 2 po qid Ck Bruno /2018 Ashley Kee M.D. 03/28 Carbidopa-Levodo 03/15 Hx Tablets ER 50-200mg 120ta take 1 G20 Drew mcmillan bs miladys Thomas M.D. - times a 06/03 day, 6am, 10am, 2pm and 6pm Trazodone HCL 30 Hx Tablets 50mg 30tab 1 by G47.33 Drew ferny Thomas M.D. - every 03/14 Carbidopa-Levodo 01/22 Hx Tablets ER 50-200mg 90tab take 1 G20 Drew mcmillan ER /2017 s miladys Thomas M.D. - three 03/15 times day at 6am, 12 at night and 6 at night Carbidopa-Levodo 01/11 Hx Tablets 25-100mg 120ta 1 po four G47.33 Ck mcmillan bs times a Katty - saturnino Salas 01/22 Carbidopa-Levodo 12/04 Hx Tablets ER 50-200mg 90tab take 1 Drew mcmillan s pill roderick Thomas M.D. - mouth 01/11 times a day at 6am, 12pm and 6 pm Voltaren 07/11 Hx Gel 1% 300gm apply 2 M79.672 John Dyer grams of [employer] - gel twice 04/09 daily to the affected area. Azithromycin 05/18 Hx Tablets 250mg 6tabs two tabs J20.9 Kusum /2017 day one, Varn, N.P. - one daily 05/28 till Cheratussin ac 05/18 Hx Syrup 100-10mg/ 120ml 2 J20.9 5ML teaspoons Varn, N.P. - by mouth 07/11 every hours as needed Dyazide 04/08 Hx Capsules 37.5-25mg 30cap 1 by Geraldo Cruz ferny Saab M.D. - daily 3 12/28 days week Benzonatate 03/10 Hx Capsules 100mg 30cap 1-2 tab J06.9 Geraldo Cruz s by yulia Saab M.D. - three 04/07 times day as needed Ropinirole HCL 05/31 Hx Tablets 1mg 4 po tid Ck Bruno /Ashley Wagner M.D. 11/22 Carbidopa-Levodo 05/31 Hx Tablets 25-100mg 270ta 1 po 4x a Ck mcmillan bs day Ashley Alaniz M.D. 12/04 Ropinirole HCL 04/21 Hx Tablets 2mg 1 tab by Geraldo Cruz mouth tid Josue Saab - 05/31 Ropinirole HCL 03/01 Hx Tablets 0.5mg 360ta 1 po tid Geraldo Cruz bs Josue Saab - 04/21 Nitrostat 12/02 Hx Tablets 0.4mg 25tab one sl Geraldo Cruz Sub s q5min up Josue Saab - to 3 12/28 doses needed Amantadine HCL 11/18 Hx Syrup 50mg/5ML 150ml 25 mg/2.5 Ck Bruno ml at 8 [place], - Am and at M.D. 02/09 noon states this is on hold Carbidopa-Levodo 09/24 Hx Tablets 25-100mg 270ta 03/27 tab Ck Bruno bs by mouth [place], - six times M.D. 02/09 every /2014 Pravastatin 06/23 Hx Tablets 20mg 90tab 1 tablet 272.0 Geraldo Byrne s by mouth Josue Saab - once 06/11 daily at bedtime Amantadine HCL 10/02 Hx Syrup 50mg/5ML 350un 50 mg/5 Ck Bruno its ml at [place], - noon M.D. 05/06 Amantadine HCL 07/16 Hx Capsules 100mg 90cap 1 by Melia /2012 s mouth [place]aya [employer] - every 09/30 on hold as of 08/24/14 Nasonex 05/30 Hx Suspension 50mcg/Act 1unit 2 sprays Nahun Holder /2012 s to each Josue Clay - nostril 08/31 twice daily prn Asmanex 30 02/20 Hx Aerosol 110mcg/In 30uni 1 puffs R06.00 Geraldo Cruz Metered Doses /2011 h ts daily in Josue Saab - the 03/01 evening /2014 Sulfamethoxazole 07/16 Hx Tablets 800-160mg 20tab 1 po bid 599.0 Geraldo Cruz /Trimethoprim /2011 s Josue Saab - 12/19 Androderm 06/19 Hx Patches 2mg/24HR 30uni apply 1 780.79 Geraldo Cruz 24HR ts patch Josue Saab - daily; 12/19 after 24 hours code f Cipro 12/06 Hx Tablets 500mg 28tab 1 po bid 601.1 [place] Ashley Boland M.D. 04/19 Septra DS 11/25 Hx Tablets 800-160mg 20tab 1 po bid 604.90 Geraldo Cruz /2009 ferny Saab M.D. - 01/12 Ibuprofen 05/03 Hx Tablets 600mg 90tab 1 po tid Geraldo Cruz s ping Saab M.D. - 04/07 Amoxicillin 12/19 Hx Tablets 500mg 30tab 1 po tid Geraldo Cruz s for 10 Josue Saab - days 01/22 OTC Hemmroid 11/26 Hx As needed Geraldo Cruz Josue Saab - 05/19 Liz 06/19 Hx Tablets 180mg 30tab 1 po qd Geraldo Cruz s ping Saab M.D. - 01/05 Physical Therapy 04/03 Hx PT Geraldo Cruz evaluatio Josue Saab - n and 01/12 treatment for neck pains Vitamin C Hx Tablets 500mg 1 PO qd Katiana GR, /0000 Ashley Cash MD 07/16 Multivitamins Hx Tablets 90tab 1 PO qd Unknown /0000 s - 02/20 Kenalog Hx Cream 0.1% 60GM Apply bid Barken, /0000 pryeison Herrera MD - Eczema 12/17 Proctosol HC Hx Cream 2.5% 60gm Apply bid Albaen, /0000 ping Herrera MD - 12/17 Cortisone Cream Hx topical, Unknown /0000 as needed - 05/19 Metamucil Hx Powder po with Unknown Original Texture /0000 liquid - qhs 12/02 Nystatin Hx Cream [id number] 60g topically Unknown /0000 t/GM bid prn - 01/27 Ducosate Sodium 00/[address] 100mg 1 tab by Unknown /0000 mouth at - 6pm and 05/19 one at bedtime Melatonin 00 Hx Capsules 5mg 1 by Unknown /0000 mouth - every 12/28 night at bedtime Prozac 00/00 Hx Capsules 10mg 1 by Unknown /0000 mouth - every day 05/31 Metamucil 00/00 Hx Powder 28.3% as needed Unknown /0000 - 02/09 Sinemet 00/00 Hx Tablets 25-100mg 1/2 po Unknown /0000 bid - 05/31 Neupro 00/ Hx Patches 2mg/24HR apply Unknown /0000 24HR once - daily at 03/10 Aspirin Ec Low 00/ Hx Tablets DR 81mg 1 by Unknown Dose /0000 mouth - every day 03/10 Melatonin 00/00 Hx Capsules 5mg 1 tablet G47.33 Unknown /0000 at bed - time 01/22 Glucosamine 00/00 Hx Capsules 1500Com 1 by Unknown Chondroitin 1500 /0000 mouth Complex - daily 03/15 Glucosamine 00/00 Hx Capsules 1500Com 1 by Unknown Chondroitin 1500 /0000 mouthd Complex - daily 03/14 Medications Administered in Office Medication Date Status Form Strength Qnty SIG Indications Ordering Provider Influenza Administered Injection Geraldo Cruz Virus Vaccine 015 Josue Saab Influenza Administered Injection Unknown Virus Vaccine 014 Immunizations CPT Code Status Date Vaccine Lot # [id number] Given 12/11/2017 Fluzone High Dose 41774 Given 01/14/2016 Fluzone High Dose 00691 Given 08/31/2014 Tdap - Tetanus/Diptheria/Acellular Pertussis [id number] 77113 Given 08/31/2014 Pneumococcal Conjugate Vaccine 13 Valent For [id number] Intramuscular Use 00829 Given 07/28/2010 Pneumonia Vaccine [id number] 47693 Given 01/14/2009 Influenza Virus 3Yrs & Over 99824 Given 09/07/2008 Zoster (Zostavax) 55536 Given 01/01/2008 Influenza Virus 3Yrs & Over 03901 Given 07/13/2004 Td (History By Patient) Vital Signs Date Vital Result Comment 06/04/2018 9:15am Height 70 inches 5'10" Weight 185.00 lb Heart Rate 68 /min BP Systolic 138 mmHg BP Diastolic 88 mmHg BMI (Body Mass Index) 26.5 kg/m2 05/20/2018 2:01pm Height 70 inches 5'10" Weight 187.75 lb with shoes Heart Rate 80 /min BP Systolic Sitting 124 mmHg Lue, reg cuff, home BP unit 97/69 BP Diastolic Sitting 62 mmHg Lue, reg cuff, home BP unit 97/69 BP Systolic Standing 97 mmHg Lue, reg cuff, home BP unit 87/62 BP Diastolic Standing 54 mmHg Lue, reg cuff, home BP unit 87/62 Respiratory Rate 18 /min BMI (Body Mass Index) 26.9 kg/m2 Ejection Fraction 60-65% echo. 07/10/17 04/29/2018 3:16pm Height 70 inches 5'10" Weight 188.00 lb Heart Rate 79 /min BP Systolic Sitting 119 mmHg BP Diastolic Sitting 77 mmHg O2 % BldC Oximetry 95 % BMI (Body Mass Index) 27.0 kg/m2 04/16/2018 12:08pm Height 70 inches 5'10" Weight 185.00 lb Heart Rate 68 /min BP Systolic Sitting 132 mmHg BP Diastolic Sitting 86 mmHg Respiratory Rate 16 /min BMI (Body Mass Index) 26.5 kg/m2 03/15/2018 1:51pm Height 70.5 inches 5'10.50" Weight 185.00 lb Heart Rate 72 /min BP Systolic Sitting 138 mmHg BP Diastolic Sitting 84 mmHg Respiratory Rate 16 /min BMI (Body Mass Index) 26.2 kg/m2 01/22/2018 9:15am Height 68.25 inches 5'8.25" Weight 175.00 lb Heart Rate 72 /min BP Systolic 110 mmHg BP Diastolic 88 mmHg Respiratory Rate 16 /min BMI (Body Mass Index) 26.4 kg/m2 12/19/2017 2:12pm Height 68.25 inches 5'8.25" Weight 184.38 lb W/ Shoes Heart Rate 80 /min BP Systolic Sitting 108 mmHg Lue Reg Cuff BP Diastolic Sitting 78 mmHg Lue Reg Cuff BMI (Body Mass Index) 27.8 kg/m2 Ejection Fraction 60-65% ECHO 07/10/17 10/19/2017 10:29am Height 68.25 inches 5'8.25" Weight 188.00 lb Heart Rate 60 /min BP Systolic Sitting 140 mmHg Lue reg cuff BP Diastolic Sitting 90 mmHg Lue reg cuff Respiratory Rate 16 /min O2 % BldC Oximetry 95 % On Ra BMI (Body Mass Index) 28.4 kg/m2 08/21/2017 11:22am Height 68.25 inches 5'8.25" Weight 189.00 lb with shoes Heart Rate 62 /min BP Systolic Sitting 118 mmHg Lue reg cuff BP Diastolic Sitting 82 mmHg Lue reg cuff Respiratory Rate 16 /min BMI (Body Mass Index) 28.5 kg/m2 Ejection Fraction 60-65% 07/10/2017-echo 08/15/2017 4:30pm Weight 189.00 lb Heart Rate 67 /min BP Systolic Sitting 114 mmHg BP Diastolic Sitting 70 mmHg O2 % BldC Oximetry 96 % 07/27/2017 10:58am Height 68.25 inches 5'8.25" Weight 189.25 lb Heart Rate 62 /min BP Systolic Sitting 122 mmHg Lue reg cuff BP Diastolic Sitting 88 mmHg Lue reg cuff Respiratory Rate 16 /min O2 % BldC Oximetry 96 % On Ra BMI (Body Mass Index) 28.6 kg/m2 07/11/2017 3:36pm Height 68.25 inches 5'8.25" Weight 185.00 lb Heart Rate 82 /min Respiratory Rate 18 /min BMI (Body Mass Index) 27.9 kg/m2 06/21/2017 8:47am Height 68.25 inches 5'8.25" Weight 185.00 lb Heart Rate 76 /min BP Systolic Sitting 114 mmHg rue reg cuff BP Diastolic Sitting 74 mmHg rue reg cuff Respiratory Rate 16 /min BMI (Body Mass Index) 27.9 kg/m2 Ejection Fraction 50-55% 12/16/2016 echo 04/12/2017 11:26am Height 68.25 inches 5'8.25" Weight 190.00 lb Heart Rate 63 /min BP Systolic Sitting 140 mmHg BP Diastolic Sitting 80 mmHg Body Temperature 95.1 F O2 % BldC Oximetry 98 % BMI (Body Mass Index) 28.7 kg/m2 04/10/2017 1:30pm Height 68.25 inches 5'8.25" Weight 190.00 lb Heart Rate 67 /min BP Systolic Sitting 140 mmHg BP Diastolic Sitting 92 mmHg Body Temperature 97.7 F O2 % BldC Oximetry 96 % BMI (Body Mass Index) 28.7 kg/m2 12/29/2016 3:47pm Height 70 inches 5'10" Weight 186.25 lb Heart Rate 62 /min BP Systolic 104 mmHg BP Diastolic 82 mmHg BMI (Body Mass Index) 26.7 kg/m2 07/11/2016 9:53am Weight 181.00 lb Heart Rate 65 /min BP Systolic Sitting 118 mmHg BP Diastolic Sitting 74 mmHg Pain Level 3 L foot O2 % BldC Oximetry 97 % 06/20/2016 10:13am Height 70 inches 5'10" Weight 175.00 lb Heart Rate 70 /min BP Systolic Sitting 124 mmHg BP Diastolic Sitting 82 mmHg BMI (Body Mass Index) 25.1 kg/m2 Ejection Fraction 50% - 55% echo 12/16/14 06/07/2016 3:43pm Height 70 inches 5'10" Weight 173.00 lb Heart Rate 60 /min BP Systolic Sitting 138 mmHg BP Diastolic Sitting 82 mmHg Respiratory Rate 14 /min BMI (Body Mass Index) 24.8 kg/m2 05/18/2016 10:46am Weight 178.00 lb with shoes Heart Rate 65 /min BP Systolic 140 mmHg BP Diastolic 86 mmHg Body Temperature 99.0 F O2 % BldC Oximetry 98 % 05/05/2016 11:50am Height 68 inches 5'8" Weight 181.00 lb Heart Rate 58 /min BP Systolic 124 mmHg BP Diastolic 82 mmHg Respiratory Rate 14 /min O2 % BldC Oximetry 93 % BMI (Body Mass Index) 27.5 kg/m2 04/07/2016 9:34am Height 68 inches 5'8" Weight 181.12 lb Heart Rate 63 /min BP Systolic 120 mmHg BP Diastolic 80 mmHg Body Temperature 97.4 F O2 % BldC Oximetry 99 % BMI (Body Mass Index) 27.5 kg/m2 03/10/2016 11:23am Weight 170.00 lb Heart Rate 54 /min BP Systolic Sitting 130 mmHg BP Diastolic Sitting 70 mmHg Body Temperature 98.1 F O2 % BldC Oximetry 98 % 01/28/2016 8:58am Weight 166.00 lb Heart Rate 71 /min BP Systolic Sitting 114 mmHg BP Diastolic Sitting 64 mmHg Body Temperature 97.7 F O2 % BldC Oximetry 98 % 01/05/2016 12:01pm Height 69.5 inches 5'9.50" Weight 164.00 lb Heart Rate 52 /min BP Systolic Sitting 140 mmHg BP Diastolic Sitting 82 mmHg Body Temperature 97.7 F O2 % BldC Oximetry 99 % BMI (Body Mass Index) 23.9 kg/m2 11/24/2015 9:08am Height 70 inches 5'10" Weight 159.25 lb Heart Rate 72 /min BP Systolic Sitting 140 mmHg BP Diastolic Sitting 80 mmHg Respiratory Rate 16 /min O2 % BldC Oximetry 97 % BMI (Body Mass Index) 22.8 kg/m2 06/01/2015 2:46pm Height 70 inches 5'10" Weight 163.00 lb Patient reported this Am Heart Rate 64 /min BP Systolic Sitting 128 mmHg BP Diastolic Sitting 78 mmHg Respiratory Rate 16 /min BMI (Body Mass Index) 23.4 kg/m2 04/21/2015 11:34am Height 70 inches 5'10" Weight 163.00 lb Heart Rate 66 /min BP Systolic Sitting 142 mmHg LA, reg BP Diastolic Sitting 96 mmHg LA, reg BMI (Body Mass Index) 23.4 kg/m2 Ejection Fraction 50%-55% echo 12/16/14 03/01/2015 3:08pm Height 70 inches 5'10" Weight 163.00 lb Heart Rate 88 /min BP Systolic Sitting 134 mmHg BP Diastolic Sitting 84 mmHg Body Temperature 97.2 F BMI (Body Mass Index) 23.4 kg/m2 02/10/2015 4:02pm Height 70 inches 5'10" Heart Rate 64 /min BP Systolic Sitting 136 mmHg BP Diastolic Sitting 80 mmHg Respiratory Rate 16 /min 12/24/2014 2:37pm Height 70 inches 5'10" Weight 157.00 lb w/shoes Heart Rate 60 /min BP Systolic Sitting 138 mmHg LA reg cuff BP Diastolic Sitting 100 mmHg LA reg cuff BMI (Body Mass Index) 22.5 kg/m2 Ejection Fraction 50-55 echo 12/16/14 12/03/2014 2:18pm Height 70 inches 5'10" Weight 158.00 lb Heart Rate 84 /min BP Systolic 142 mmHg LA reg BP Diastolic 98 mmHg LA reg BMI (Body Mass Index) 22.7 kg/m2 Ejection Fraction 55-60% ECHO 09/09/14 12/02/2014 4:23pm Height 70 inches 5'10" Weight 158.00 lb Heart Rate 66 /min BP Systolic Sitting 124 mmHg BP Diastolic Sitting 78 mmHg O2 % BldC Oximetry 96 % BMI (Body Mass Index) 22.7 kg/m2 11/18/2014 2:50pm Height 70 inches 5'10" Weight 161.00 lb Heart Rate 76 /min BP Systolic Sitting 130 mmHg BP Diastolic Sitting 82 mmHg Respiratory Rate 16 /min BMI (Body Mass Index) 23.1 kg/m2 10/06/2014 10:04am Height 70 inches 5'10" Weight 167.00 lb Heart Rate 62 /min BP Systolic 140 mmHg BP Diastolic 80 mmHg Respiratory Rate 14 /min O2 % BldC Oximetry 96 % BMI (Body Mass Index) 24.0 kg/m2 Neck Circumference in inches 15 10/01/2014 2:33pm Height 70 inches 5'10" Weight 165.00 lb Heart Rate 71 /min BP Systolic Sitting 130 mmHg BP Diastolic Sitting 70 mmHg O2 % BldC Oximetry 97 % BMI (Body Mass Index) 23.7 kg/m2 09/07/2014 3:38pm Height 69 inches 5'9" Weight 167.00 lb w/shoes Heart Rate 74 /min BP Systolic Sitting 142 mmHg LA reg cuff BP Diastolic Sitting 82 mmHg LA reg cuff Respiratory Rate 14 /min BMI (Body Mass Index) 24.7 kg/m2 Ejection Fraction 50-55 echo 06/12/14 09/03/2014 1:09pm Height 69 inches 5'9" Weight 168.38 lb Heart Rate 77 /min BP Systolic Sitting 120 mmHg BP Diastolic Sitting 60 mmHg Respiratory Rate 18 /min Body Temperature 97.1 F O2 % BldC Oximetry 97 % BMI (Body Mass Index) 24.9 kg/m2 08/31/2014 2:40pm Weight 168.25 lb Heart Rate 74 /min BP Systolic Sitting 112 mmHg BP Diastolic Sitting 70 mmHg Respiratory Rate 16 /min Body Temperature 98.7 F O2 % BldC Oximetry 98 % 05/21/2014 4:01pm Weight 173.00 lb Heart Rate 66 /min BP Systolic Sitting 160 mmHg BP Diastolic Sitting 80 mmHg Body Temperature 97.6 F 05/07/2014 4:03pm Weight 175.25 lb Heart Rate 50 /min BP Systolic Sitting 132 mmHg BP Diastolic Sitting 80 mmHg Body Temperature 97.2 F Pain Level 3 04/28/2014 2:42pm Height 69.5 inches 5'9.50" Weight 176.00 lb Heart Rate 68 /min BP Systolic Sitting 128 mmHg BP Diastolic Sitting 72 mmHg Respiratory Rate 16 /min BMI (Body Mass Index) 25.6 kg/m2 04/23/2014 9:32am Weight 177.75 lb Heart Rate 77 /min BP Systolic Sitting 128 mmHg BP Diastolic Sitting 83 mmHg 04/21/2014 2:56pm Height 70 inches 5'10" Weight 177.25 lb with shoes Heart Rate 58 /min BP Systolic 121 mmHg repeat BP Diastolic 82 mmHg repeat BP Systolic Sitting 134 mmHg La reg cuff BP Diastolic Sitting 82 mmHg La reg cuff Respiratory Rate 16 /min BMI (Body Mass Index) 25.4 kg/m2 03/02/2014 2:26pm Weight 176.25 lb Heart Rate 67 /min BP Systolic 116 mmHg BP Diastolic 82 mmHg Body Temperature 97.0 F O2 % BldC Oximetry 98 % 01/05/2014 2:09pm Height 69.5 inches 5'9.50" Weight 172.50 lb Heart Rate 64 /min BP Systolic Sitting 130 mmHg BP Diastolic Sitting 82 mmHg Body Temperature 97.8 F BMI (Body Mass Index) 25.1 kg/m2 10/29/2013 1:55pm Height 69.5 inches 5'9.50" Weight 168.00 lb Heart Rate 64 /min BP Systolic Sitting 118 mmHg BP Diastolic Sitting 76 mmHg Respiratory Rate 16 /min BMI (Body Mass Index) 24.5 kg/m2 08/08/2013 3:27pm Height 69.5 inches 5'9.50" Weight 169.00 lb Heart Rate 56 /min BP Systolic Sitting 128 mmHg BP Diastolic Sitting 70 mmHg Respiratory Rate 16 /min BMI (Body Mass Index) 24.6 kg/m2 07/15/2013 3:16pm Height 69.5 inches 5'9.50" Weight 169.00 lb Heart Rate 67 /min BP Systolic Sitting 130 mmHg BP Diastolic Sitting 80 mmHg Respiratory Rate 16 /min BMI (Body Mass Index) 24.6 kg/m2 06/23/2013 11:07am Weight 173.00 lb Heart Rate 60 /min BP Systolic Sitting 130 mmHg BP Diastolic Sitting 82 mmHg 01/23/2013 10:49am Height 69.5 inches 5'9.50" Weight 174.00 lb Heart Rate 56 /min BP Systolic Sitting 108 mmHg BP Diastolic Sitting 78 mmHg Body Temperature 97.8 F BMI (Body Mass Index) 25.3 kg/m2 01/15/2013 3:01pm Heart Rate 64 /min BP Systolic Sitting 128 mmHg BP Diastolic Sitting 74 mmHg Respiratory Rate 18 /min 12/23/2012 2:04pm Height 69.5 inches 5'9.50" Weight 169.25 lb Heart Rate 62 /min BP Systolic Sitting 144 mmHg BP Diastolic Sitting 82 mmHg BMI (Body Mass Index) 24.6 kg/m2 08/27/2012 1:11pm Height 69.5 inches 5'9.50" Weight 178.25 lb Heart Rate 56 /min BP Systolic Sitting 120 mmHg BP Diastolic Sitting 80 mmHg BMI (Body Mass Index) 25.9 kg/m2 08/02/2012 10:24am Height 69.5 inches 5'9.50" Weight 180.75 lb Heart Rate 80 /min BP Systolic Sitting 128 mmHg irregular BP Diastolic Sitting 62 mmHg irregular BMI (Body Mass Index) 26.3 kg/m2 06/19/2012 2:44pm Height 69.5 inches 5'9.50" Weight 184.50 lb Heart Rate 62 /min BP Systolic Sitting 132 mmHg BP Diastolic Sitting 78 mmHg BMI (Body Mass Index) 26.9 kg/m2 06/10/2012 10:55am Height 69.5 inches 5'9.50" Weight 184.25 lb Heart Rate 68 /min BP Systolic Sitting 112 mmHg BP Diastolic Sitting 70 mmHg BMI (Body Mass Index) 26.8 kg/m2 05/30/2012 10:23am Height 69.5 inches 5'9.50" Weight 186.00 lb Heart Rate 76 /min BP Systolic 120 mmHg BP Diastolic 80 mmHg Respiratory Rate 16 /min BMI (Body Mass Index) 27.1 kg/m2 05/03/2012 11:57am Height 69.5 inches 5'9.50" Weight 182.00 lb Heart Rate 64 /min BP Systolic Sitting 124 mmHg BP Diastolic Sitting 84 mmHg Body Temperature 99.2 F O2 % BldC Oximetry 98 % BMI (Body Mass Index) 26.5 kg/m2 04/03/2012 3:50pm Height 69.25 inches 5'9.25" Weight 183.00 lb Heart Rate 72 /min BP Systolic Sitting 122 mmHg BP Diastolic Sitting 70 mmHg BMI (Body Mass Index) 26.8 kg/m2 02/21/2012 1:23pm Height 69.75 inches 5'9.75" Weight 182.00 lb Heart Rate 72 /min BP Systolic Sitting 145 mmHg BP Diastolic Sitting 80 mmHg BMI (Body Mass Index) 26.3 kg/m2 12/20/2011 10:01am Height 69.75 inches 5'9.75" Weight 179.00 lb Heart Rate 68 /min BP Systolic Sitting 120 mmHg BP Diastolic Sitting 86 mmHg BMI (Body Mass Index) 25.9 kg/m2 11/01/2011 1:14pm Height 69.75 inches 5'9.75" Weight 184.00 lb Heart Rate 66 /min BP Systolic Sitting 116 mmHg BP Diastolic Sitting 78 mmHg BMI (Body Mass Index) 26.6 kg/m2 08/17/2011 1:48pm Height 69.75 inches 5'9.75" Weight 178.00 lb Heart Rate 72 /min BP Systolic Sitting 124 mmHg BP Diastolic Sitting 84 mmHg BMI (Body Mass Index) 25.7 kg/m2 07/17/2011 12:55pm Height 69.75 inches 5'9.75" Weight 187.00 lb Heart Rate 68 /min BP Systolic Sitting 130 mmHg BP Diastolic Sitting 72 mmHg Body Temperature 99.5 F BMI (Body Mass Index) 27.0 kg/m2 07/07/2011 12:05pm Height 69.75 inches 5'9.75" Weight 187.00 lb Heart Rate 68 /min BP Systolic Sitting 130 mmHg BP Diastolic Sitting 94 mmHg Body Temperature 99.2 F Tympanically BMI (Body Mass Index) 27.0 kg/m2 06/20/2011 10:49am Height 69.75 inches 5'9.75" Weight 186.00 lb Heart Rate 68 /min BP Systolic Sitting 134 mmHg BP Diastolic Sitting 88 mmHg BMI (Body Mass Index) 26.9 kg/m2 06/13/2011 1:42pm Height 69.75 inches 5'9.75" Weight 186.00 lb Heart Rate 72 /min BP Systolic Sitting 112 mmHg BP Diastolic Sitting 60 mmHg BMI (Body Mass Index) 26.9 kg/m2 04/19/2011 10:11am Height 69.75 inches 5'9.75" Weight 183.50 lb Heart Rate 60 /min BP Systolic Sitting 134 mmHg BP Diastolic Sitting 84 mmHg BMI (Body Mass Index) 26.5 kg/m2 12/06/2010 10:41am Weight 183.00 lb Heart Rate 60 /min BP Systolic Sitting 122 mmHg BP Diastolic Sitting 84 mmHg 11/24/2010 1:17pm Height 69.5 inches 5'9.50" Weight 182.00 lb Heart Rate 76 /min BP Systolic Sitting 122 mmHg L BP Diastolic Sitting 84 mmHg L BMI (Body Mass Index) 26.5 kg/m2 07/28/2010 4:07pm Weight 189.00 lb Heart Rate 60 /min BP Systolic Sitting 132 mmHg BP Diastolic Sitting 86 mmHg 04/15/2010 9:42am Weight 188.00 lb Heart Rate 84 /min BP Systolic Sitting 134 mmHg BP Diastolic Sitting 88 mmHg Body Temperature 98.6 F O2 % BldC Oximetry 98 % 11/25/2009 3:46pm Weight 192.00 lb Heart Rate 58 /min BP Systolic Sitting 134 mmHg BP Diastolic Sitting 84 mmHg 09/09/2009 9:10am Weight 189.00 lb Heart Rate 62 /min BP Systolic Sitting 122 mmHg BP Diastolic Sitting 84 mmHg 05/31/2009 3:14pm Height 70.75 inches 5'10.75" Weight 193.00 lb Heart Rate 72 /min BP Systolic Sitting 138 mmHg BP Diastolic Sitting 82 mmHg BMI (Body Mass Index) 27.1 kg/m2 05/03/2009 2:40pm Height 70.75 inches 5'10.75" Weight 192.00 lb Heart Rate 72 /min BP Systolic Sitting 142 mmHg BP Diastolic Sitting 86 mmHg Body Temperature 97.6 F BMI (Body Mass Index) 27.0 kg/m2 12/17/2008 11:22am Heart Rate 72 /min BP Systolic Sitting 112 mmHg BP Diastolic Sitting 70 mmHg 09/07/2008 9:09am Height 70.75 inches 5'10.75" Weight 189.00 lb Heart Rate 76 /min BP Systolic Sitting 118 mmHg BP Diastolic Sitting 78 mmHg Respiratory Rate 20 /min BMI (Body Mass Index) 26.5 kg/m2 12/20/2007 10:30am Height 70 inches 5'10" Heart Rate 80 /min BP Systolic Sitting 124 mmHg BP Diastolic Sitting 80 mmHg 11/27/2007 10:37am Height 70 inches 5'10" Weight 189.00 lb Heart Rate 76 /min BP Systolic Sitting 126 mmHg BP Diastolic Sitting 86 mmHg BMI (Body Mass Index) 27.1 kg/m2 09/05/2007 9:34am Height 70 inches 5'10" Weight 191.00 lb Heart Rate 72 /min BP Systolic Sitting 130 mmHg BP Diastolic Sitting 90 mmHg BMI (Body Mass Index) 27.4 kg/m2 06/20/2007 3:25pm Height 70 inches 5'10" Weight 194.00 lb Heart Rate 60 /min BP Systolic Sitting 136 mmHg BP Diastolic Sitting 90 mmHg BMI (Body Mass Index) 27.8 kg/m2 03/29/2007 9:32am Height 70 inches 5'10" Weight 185.00 lb Heart Rate 68 /min BP Systolic Sitting 124 mmHg BP Diastolic Sitting 80 mmHg BMI (Body Mass Index) 26.5 kg/m2 Results Test Date Facility Test Result H/L Range Note Comp Metabolic Panel 05/20/2018 [facility] Sodium 140 mmol/L N 135-[address] [place] [address] [phone] Potassium 4.6 mmol/L N 3.5-5.0 Chloride 104 mmol/L N 101-111 Co2 Carbon Dioxide 32 mmol/L N 22-32 Anion Gap 4 mmol/L N 2-11 Glucose 106 mg/dL High 70-100 Blood Urea Nitrogen 22 mg/dL N 6-24 Creatinine 1.08 mg/dL N 0.67-1.17 BUN/Creatinine Ratio 20.4 High 8-20 Calcium 9.1 mg/dL N 8.6-10.3 Total Protein 6.2 g/dL Low 6.4-8.9 Albumin 4.3 g/dL N 3.2-5.2 Globulin 1.9 g/dL Low 2-4 Albumin/Globulin Ratio 2.3 N 1-3 Total Bilirubin 0.90 mg/dL N 0.2-1.0 Alkaline Phosphatase 115 U/L High 34-104 Alt 4 U/L Low 7-52 Ast 11 U/L Low 13-39 Egfr Non- 67.0 >60 Egfr 81.1 >60 1 CBC Auto Diff 05/20/2018 [facility] White Blood 6.4 10^3/uL N 3.5-10.[address] [place] [address] [phone] Red Blood Count 4.28 10^6/uL N 4.00-5.40 Hemoglobin 14.5 g/dL N 14.0-18.0 Hematocrit 43 % N 42-52 Mean Corpuscular Volume 100 fL High 80-94 Mean Corpuscular Hemoglobin 34 pg High 27-31 Mean Corpuscular HGB Conc 34 g/dL N 31-36 Red Cell Distribution Width 13 % N 10.5-15 Platelet Count 203 10^3/uL N 150-450 Mean Platelet Volume 9.1 fL N 7.4-10.4 Abs Neutrophils 4.2 10^3/uL N 1.5-7.7 Abs Lymphocytes 1.3 10^3/uL N 1.0-4.8 Abs Monocytes 0.7 10^3/uL N 0-0.8 Abs Eosinophils 0.1 10^3/uL N 0-0.6 Abs Basophils 0.1 10^3/uL N 0-0.2 Abs Nucleated RBC 0 10^3/uL Granulocyte % 66.2 % Lymphocyte % 20.8 % Monocyte % 11.3 % Eosinophil % 0.8 % Basophil % 0.9 % Nucleated Red Blood Cells % 0 Laboratory test 05/20/2018 [facility] Magnesium 2.2 mg/dL N 1.9-2.7 finding [address] [place] [address] [phone] Cortisol 8.10 g/dL 2 B-Type Natriuretic Peptide BNP 32 pg/mL <=100 Inr/Protime 02/10/2018 [facility] Inr 0.95 N 0.77-1.02 [address] [place] [address] [phone] Urinalysis Profile 02/10/2018 [facility] Urine Color Yellow [address] [place] [address] [phone] Urine Appearance Clear Urine Specific [place] 1.020 N 1.010-1.030 Urine pH 6.0 N 5-9 Urine Urobilinogen Negative Negative Urine Ketones Trace Abnormal Negative Urine Protein Negative Negative Urine Leukocytes Negative Negative Urine Blood Negative Negative * * Abnormal Negative 3 Urine Nitrite Negative Negative Urine Bilirubin Negative Negative Urine Glucose Negative Negative CBC Auto Diff 02/10/2018 [facility] White Blood 5.8 10^3/uL N 3.5-10.8 [address] [facility] [place] [address] [phone] Red Blood Count 4.67 10^6/uL N 4.00-5.40 Hemoglobin 15.8 g/dL N 14.0-18.0 Hematocrit 46 % N 42-52 Mean Corpuscular Volume 99 fL High 80-94 Mean Corpuscular Hemoglobin 34 pg High 27-31 Mean Corpuscular HGB Conc 34 g/dL N 31-36 Red Cell Distribution Width 13 % N 10.5-15 Platelet Count 195 10^3/uL N 150-450 Mean Platelet Volume 8.8 fL N 7.4-10.4 Abs Neutrophils 4.2 10^3/uL N 1.5-7.7 Abs Lymphocytes 0.9 10^3/uL Low 1.0-4.8 Abs Monocytes 0.7 10^3/uL N 0-0.8 Abs Eosinophils 0 10^3/uL N 0-0.6 Abs Basophils 0.1 10^3/uL N 0-0.2 Abs Nucleated RBC 0 10^3/uL Granulocyte % 71.9 % N 38-83 Lymphocyte % 15.2 % Low 25-47 Monocyte % 11.2 % High 0-7 Eosinophil % 0.7 % N 0-6 Basophil % 1.0 % N 0-2 Nucleated Red Blood Cells % 0 Laboratory test 02/10/2018 [facility] Lactic Acid 0.8 mmol/L N 0.5-2.0 4 finding [address] [place] [address] [phone] Comp Metabolic 02/10/2018 [facility] Sodium 138 mmol/L N 135- 145 Panel [address] [place] [address] [phone] Potassium 4.7 mmol/L N 3.5-5.0 Chloride 101 mmol/L N 101-111 Co2 Carbon Dioxide 31 mmol/L N 22-32 Anion Gap 6 mmol/L N 2-11 Glucose 103 mg/dL High 70-100 Blood Urea Nitrogen 21 mg/dL N 6-24 Creatinine 0.94 mg/dL N 0.67-1.17 BUN/Creatinine Ratio 22.3 High 8-20 Calcium 9.7 mg/dL N 8.6-10.3 Total Protein 6.6 g/dL N 6.4-8.9 Albumin 4.3 g/dL N 3.2-5.2 Globulin 2.3 g/dL N 2-4 Albumin/Globulin Ratio 1.9 N 1-3 Total Bilirubin 0.90 mg/dL N 0.2-1.0 Alkaline Phosphatase 70 U/L N 34-104 Alt 9 U/L N 7-52 Ast 14 U/L N 13-39 Egfr Non- 78.7 >60 Egfr 95.2 >60 5 Laboratory test 02/10/2018 [facility] Magnesium 2.0 mg/dL N 1.9-2.7 finding [address] [place] [address] [phone] C Reactive Protein < 1.00 mg/L N <8.01 Troponin-I (TnI) 0.00 ng/mL <0.04 TSH (Thyroid Stim Horm) 1.44 mcIU/mL N 0.34-5.60 CBC Auto Diff 07/31/2017 [facility] White Blood 5.7 10^3/uL N 3.5-10.[address] [place] [address] [phone] Red Blood Count 4.22 10^6/uL N 4.0-5.4 Hemoglobin 14.2 g/dL N 14.0-18.0 Hematocrit 41 % Low 42-52 Mean Corpuscular Volume 98 fL High 80-94 Mean Corpuscular Hemoglobin 34 pg High 27-31 Mean Corpuscular HGB Conc 34 g/dL N 31-36 Red Cell Distribution Width 13 % N 10.5-15 Platelet Count 170 10^3/uL N 150-450 Mean Platelet Volume 10.2 um3 N 7.4-10.4 Abs Neutrophils 3.6 10^3/uL N 1.5-7.7 Abs Lymphocytes 1.5 10^3/uL N 1.0-4.8 Abs Monocytes 0.5 10^3/uL N 0-0.8 Abs Eosinophils 0.1 10^3/uL N 0-0.6 Abs Basophils 0 10^3/uL N 0-0.2 Abs Nucleated RBC 0 10^3/uL Granulocyte % 63.2 % N 38-83 Lymphocyte % 26.1 % N 25-47 Monocyte % 9.0 % High 0-7 Eosinophil % 1.1 % N 0-6 Basophil % 0.6 % N 0-2 Nucleated Red Blood Cells % 0.1 Comp Metabolic Panel 07/31/2017 [facility] Sodium 139 mmol/L N 139-[address] [place] [address] [phone] Potassium 4.7 mmol/L N 3.5-5.0 Chloride 102 mmol/L N 101-111 Co2 Carbon Dioxide 29 mmol/L N 22-32 Anion Gap 8 mmol/L N 2-11 Glucose 112 mg/dL High 70-100 Blood Urea Nitrogen 17 mg/dL N 6-24 Creatinine 0.82 mg/dL N 0.67-1.17 BUN/Creatinine Ratio 20.7 High 8-20 Calcium 9.0 mg/dL N 8.6-10.3 Total Protein 6.1 g/dL Low 6.4-8.9 Albumin 4.2 g/dL N 3.2-5.2 Globulin 1.9 g/dL Low 2-4 Albumin/Globulin Ratio 2.2 N 1-3 Total Bilirubin 1.00 mg/dL N 0.2-1.0 Alkaline Phosphatase 55 U/L N 34-104 Alt 4 U/L Low 7-52 Ast 15 U/L N 13-39 Egfr Non- 92.4 >60 Egfr 118.8 >60 6 Laboratory test 07/31/2017 [facility] Magnesium 1.9 mg/dL N 1.9-2.[address] [place] [address] [phone] TSH (Thyroid Stim Horm) 1.83 mcIU/mL N 0.34-5.60 B-Type Natriuretic Peptide BNP 34 pg/mL 7 Laboratory test finding 06/21/2017 [facility] Magnesium <pending > [address] [place] [address] [phone] TSH (Thyroid Stim Horm) <pending> Laboratory 06/21/2017 [facility] B-Type <pending> test finding [address] [place] [address] Peptide BNP [phone] Laboratory 05/02/2017 [facility] Rapid Strep Negative Negative [address] [place] [address] [phone] Laboratory 04/04/2017 [facility] PSA Screening 3.049 ng/mL 0- 4.0 [address] [place] [address] [phone] Lipid Profile 04/04/2017 [facility] Triglycerides 37 mg/dL 10 (Trig/Chol/HDL [address] ) [place] [address] [phone] Cholesterol 160 mg/dL 11 HDL Cholesterol 72.1 mg/dL 12 LDL Cholesterol 81 mg/dL 13 Urine Culture And 10/07/2016 [facility] Urine SEE RESULT 14 , [address] [address] [phone] Poc Urinalysis 10/07/2016 [facility] Poc Negative N Negative [address] Glucose, [place] [address] Urine [phone] Poc Bilirubin, Urine Negative N Negative Poc Ketone, Urine Negative N Negative Poc Specific [place], Urine 1.025 N 1.010-1.030 Poc Blood, Urine Trace-intact Abnormal Negative Poc pH, Urine 6.0 N 5-9 Poc Protein, Urine Negative N Negative Poc Urobilinogen, Urine 0.2 N Negative Poc Nitrite, Urine Negative N Negative Poc Leukocytes, Urine Trace Abnormal Negative Poc Color, Urine Yellow N Poc Clarity, Urine Slightly Cloudy N 16 Basic Metabolic Panel 04/07/2016 [facility] Sodium 139 mmol/L N 133-[address] [place] [address] [phone] Potassium 4.3 mmol/L N 3.5-5.0 Chloride 103 mmol/L N 101-111 Co2 Carbon Dioxide 31 mmol/L N 22-32 Anion Gap 5 mmol/L N 2-11 Glucose 90 mg/dL N 70-100 Blood Urea Nitrogen 17 mg/dL N 6-24 Creatinine 0.80 mg/dL N 0.67-1.17 BUN/Creatinine Ratio 21.3 High 8-20 Calcium 9.0 mg/dL N 8.6-10.3 Egfr Non- 95.3 N >60 Egfr 122.6 N >60 17 Laboratory test 04/07/2016 [facility] B-Type Natriuretic 50 pg/ mL N 18 finding [address] [facility] [place] [address] [phone] TSH (Thyroid Stim Horm) 1.79 mcIU/mL N 0.34-5.60 Magnesium 1.8 mg/dL Low 1.9-2.7 Lipid Profile 04/01/2016 [facility] Triglycerides 44 mg/dL N 19 (Trig/Chol/HDL) [address] [place] [address] [phone] Cholesterol 169 mg/dL N 20 HDL Cholesterol 71.6 mg/dL N 21 LDL Cholesterol 89 mg/dL N 22 Laboratory test 01/21/2016 [facility] Partial 31.6 seconds N 26.0-36.[address] [place] [address] PTT [phone] Inr/Protime 01/21/2016 [facility] Inr 0.98 N 0.89-1.[address] [place] [address] [phone] Urinalysis 01/21/2016 [facility] Urine Color Yellow N Profile [address] [place] [address] [phone] Urine Appearance Cloudy N Urine Specific [place] 1.023 N 1.010-1.030 Urine pH 5.0 N 5-9 Urine Urobilinogen Negative N Negative Urine Ketones Negative N Negative Urine Protein Negative N Negative Urine Leukocytes Negative N Negative Urine Blood Negative N Negative * * Abnormal Negative 23 Urine Nitrite Negative N Negative Urine Bilirubin Negative N Negative Urine Glucose Negative N Negative CBC Auto Diff 01/21/2016 [facility] White Blood 6.0 10^3/uL N 3.5-10.[address] [place] [address] [phone] Red Blood Count 4.41 10^6/uL N 4.0-5.4 Hemoglobin 14.7 g/dL N 14.0-18.0 Hematocrit 44 % N 42-52 Mean Corpuscular Volume 99 fL High 80-94 Mean Corpuscular Hemoglobin 33 pg High 27-31 Mean Corpuscular HGB Conc 34 g/dL N 31-36 Red Cell Distribution Width 13 % N 10.5-15 Platelet Count 168 10^3/uL N 150-450 Mean Platelet Volume 10 um3 N 7.4-10.4 Abs Neutrophils 4.3 10^3/uL N 1.5-7.7 Abs Lymphocytes 1.2 10^3/uL N 1.0-4.8 Abs Monocytes 0.5 10^3/uL N 0-0.8 Abs Eosinophils 0 10^3/uL N 0-0.6 Abs Basophils 0.1 10^3/uL N 0-0.2 Abs Nucleated RBC 0 10^3/uL N Granulocyte % 70.4 % N 38-83 Lymphocyte % 19.3 % Low 25-47 Monocyte % 7.5 % N 1-9 Eosinophil % 0.7 % N 0-6 Basophil % 2.1 % High 0-2 Nucleated Red Blood Cells % 0 N Basic Metabolic Panel 01/21/2016 [facility] Sodium 140 mmol/L N 133-[address] [place] [address] [phone] Potassium 4.6 mmol/L N 3.5-5.0 Chloride 105 mmol/L N 101-111 Co2 Carbon Dioxide 31 mmol/L N 22-32 Anion Gap 4 mmol/L N 2-11 Glucose 87 mg/dL N 70-100 Blood Urea Nitrogen 20 mg/dL N 6-24 Creatinine 0.76 mg/dL N 0.67-1.17 BUN/Creatinine Ratio 26.3 High 8-20 Calcium 9.3 mg/dL N 8.6-10.3 Egfr Non- 101.1 N >60 Egfr 130.0 N >60 24 Laboratory test 12/25/2015 [facility] TSH (Thyroid 1.77 mcIU/mL N 0.34-5.[address] Stim Horm) [place] [address] [phone] CBC Auto Diff 12/25/2015 [facility] White Blood 6.0 10^3/uL N 3.5-10.[address] [place] [address] [phone] Red Blood Count 4.45 10^6/uL N 4.0-5.4 Hemoglobin 14.7 g/dL N 14.0-18.0 Hematocrit 44 % N 42-52 Mean Corpuscular Volume 99 fL High 80-94 Mean Corpuscular Hemoglobin 33 pg High 27-31 Mean Corpuscular HGB Conc 34 g/dL N 31-36 Red Cell Distribution Width 13 % N 10.5-15 Platelet Count 157 10^3/uL N 150-450 Mean Platelet Volume 9 um3 N 7.4-10.4 Abs Neutrophils 4.2 10^3/uL N 1.5-7.7 Abs Lymphocytes 1.2 10^3/uL N 1.0-4.8 Abs Monocytes 0.5 10^3/uL N 0-0.8 Abs Eosinophils 0 10^3/uL N 0-0.6 Abs Basophils 0.1 10^3/uL N 0-0.2 Abs Nucleated RBC 0 10^3/uL N Granulocyte % 70.4 % N 38-83 Lymphocyte % 19.2 % Low 25-47 Monocyte % 8.5 % N 1-9 Eosinophil % 0.8 % N 0-6 Basophil % 1.1 % N 0-2 Nucleated Red Blood Cells % 0.1 N Laboratory test 12/25/2015 [facility] B-Type 78 pg/mL N [address] [place] [address] Peptide BNP [phone] Inr/Protime 12/25/2015 [facility] Inr 1.00 N 0.89- [address] 1.11 [place] [address] [phone] Laboratory test 12/25/2015 [facility] Partial Thrombo 31.1 seconds N 26.0- finding [address] Time PTT 36.3 [place] [address] [phone] Lactic Acid 0.8 mmol/L N 0.5-2.0 26 Comp Metabolic Panel 12/25/2015 [facility] Sodium 137 mmol/L N 133-[address] [place] [address] [phone] Potassium 4.1 mmol/L N 3.5-5.0 Chloride 102 mmol/L N 101-111 Co2 Carbon Dioxide 30 mmol/L N 22-32 Anion Gap 5 mmol/L N 2-11 Glucose 87 mg/dL N 70-100 Blood Urea Nitrogen 17 mg/dL N 6-24 Creatinine 0.79 mg/dL N 0.67-1.17 BUN/Creatinine Ratio 21.5 High 8-20 Calcium 8.7 mg/dL N 8.6-10.3 Total Protein 6.2 g/dL Low 6.4-8.9 Albumin 3.8 g/dL N 3.2-5.2 Globulin 2.4 g/dL N 2-4 Albumin/Globulin Ratio 1.6 N 1-3 Total Bilirubin 1.20 mg/dL High 0.2-1.0 Alkaline Phosphatase 58 U/L N 34-104 Alt < 3 U/L Low 7-52 Ast 15 U/L N 13-39 Egfr Non- 97.0 N >60 Egfr 124.7 N >60 27 Laboratory test 12/25/2015 [facility] Magnesium 1.8 mg/dL Low 1.9-2.[address] [place] [address] [phone] Lipase 7 U/L Low 11.0-82.0 Creatine Kinase(CK) 58 U/L N 10-223 C Reactive Protein < 1.00 mg/L N < 5.00 28 Troponin-I (TnI) 0.00 ng/mL N <0.03 29 CKMB 12/25/2015 [facility] CKMB ng/mL 2.1 ng/mL N 0.6-6.3 [address] [place] [address] [phone] Laboratory test 02/03/2015 [facility] PSA Diagnostic 2.347 N 0 -4.0 30 finding 101 [facility] ng/[place] [address] [phone] Basic Metabolic 12/03/2014 [facility] Sodium 139 mmol/L N 133- 145 [address] [place] [address] [phone] Potassium 4.0 mmol/L N 3.5-5.0 Chloride 101 mmol/L N 101-111 Co2 Carbon Dioxide 34 mmol/L High 22-32 Anion Gap 4 mmol/L N 2-11 Glucose 91 mg/dL N 70-100 Blood Urea Nitrogen 16 mg/dL N 6-24 Creatinine 0.80 mg/dL N 0.67-1.17 BUN/Creatinine Ratio 20.0 N 8-20 Calcium 9.2 mg/dL N 8.6-10.3 Egfr Non- 95.8 N >60 Egfr 123.3 N >60 32 Laboratory test 12/03/2014 [facility] Troponin-I (TnI) 0.00 ng/ mL N <0.03 33 finding [address] [place] [address] [phone] Magnesium 1.9 mg/dL N 1.9-2.7 34 Laboratory test 09/09/2014 [facility] TSH (Thyroid 1.44 ?IU/mL N 0.34-5.60 [address] [place] [address] Stim Horm) [place] [address] [phone] Iron & Iron 09/09/2014 [facility] Iron 75 g/dL N 50-212 Binding Capacity [address] [place] [address] [phone] Unsaturated Iron Binding 260 g/dL N Total Iron Binding Capacity 335 g/dL N 250-450 % Iron Saturation 22 % N 15-55 Comp Metabolic Panel 09/09/2014 [facility] Sodium 140 mmol/L N 133-145 [address] [place] [address] [phone] Potassium 4.2 mmol/L N 3.5-5.0 Chloride 105 mmol/L N 101-111 Co2 Carbon Dioxide 29 mmol/L N 22-32 Anion Gap 6 mmol/L N 2-11 Glucose 91 mg/dL N 70-100 Blood Urea Nitrogen 16 mg/dL N 6-24 Creatinine 0.82 mg/dL N 0.67-1.17 BUN/Creatinine Ratio 19.5 N 8-20 Calcium 9.5 mg/dL N 8.6-10.3 Total Protein 6.1 g/dL Low 6.4-8.9 Albumin 4.1 g/dL N 3.2-5.2 Globulin 2.0 g/dL N 2-4 Albumin/Globulin Ratio 2.1 N 1-3 Total Bilirubin 1.20 mg/dL High 0.2-1.0 Alkaline Phosphatase 58 U/L N 34-104 Alt 4 U/L Low 7-52 Ast 15 U/L N 13-39 Egfr Non- 93.2 N >60 Egfr 119.8 N >60 36 Laboratory test 09/09/2014 [facility] B-Type 17 pg/mL N [address] [place] [address] Peptide BNP [phone] CBC Auto Diff 09/09/2014 [facility] White Blood 4.4 Low 4.8-[address] Count 10^3/uL 0.8 [place] [address] [phone] Red Blood Count 4.67 10^6/uL N 4.0-5.4 Hemoglobin 15.6 g/dL N 14.0-18.0 Hematocrit 46 % N 42-52 Mean Corpuscular Volume 99 fL High 80-94 Mean Corpuscular Hemoglobin 33 pg High 27-31 Mean Corpuscular HGB Conc 34 g/dL N 31-36 Red Cell Distribution Width 13 % N 10.5-15 Platelet Count 165 10^3/uL N 150-450 Mean Platelet Volume 9 um3 N 7.4-10.4 Abs Neutrophils 2.3 10^3/uL N 1.5-7.7 Abs Lymphocytes 1.5 10^3/uL N 1.0-4.8 Abs Monocytes 0.5 10^3/uL N 0-0.8 Abs Eosinophils 0.1 10^3/uL N 0-0.6 Abs Basophils 0.1 10^3/uL N 0-0.2 Abs Nucleated RBC 0 10^3/uL N Granulocyte % 52.4 % N 38-83 Lymphocyte % 34.0 % N 25-47 Monocyte % 10.5 % High 1-9 Eosinophil % 1.7 % N 0-6 Basophil % 1.4 % N 0-2 Nucleated Red Blood Cells % 0 N Lipid Profile 09/09/2014 [facility] Triglycerides 39 mg/dL N 38 (Trig/Chol/HDL) [address] [place] [address] [phone] Cholesterol 148 mg/dL N 39 HDL Cholesterol 67.3 mg/dL N 40 LDL Cholesterol 73 mg/dL N 41 Laboratory test 09/09/2014 [facility] Creatine 61 U/L N 10- [address] Kinase(CK) [place] [address] [phone] Comp Metabolic 12/31/2013 [facility] Sodium 139 N 133-[address] mmol/[place] [address] [phone] Potassium 4.2 mmol/L N 3.7-5.6 Chloride 105 mmol/L N 101-111 Co2 Carbon Dioxide 31 mmol/L N 22-32 Anion Gap 3 mmol/L N 2-11 Blood Urea Nitrogen 15 mg/dL N 6-24 Creatinine 0.78 mg/dL N 0.67-1.17 BUN/Creatinine Ratio 19.2 N 8-20 Calcium 9.0 mg/dL N 8.6-10.3 Total Protein 5.9 g/dL Low 6.4-8.9 Albumin 4.0 g/dL N 3.2-5.2 Globulin 1.9 g/dL Low 2-4 Albumin/Globulin Ratio 2.1 N 1-3 Total Bilirubin 1.30 mg/dL High 0.2-1.0 Alkaline Phosphatase 63 U/L N 34-104 Alt 14 U/L N 7-52 Ast 15 U/L N 13-39 Egfr Non- 99.0 N >60 Egfr 127.3 N >60 43 Laboratory test finding 12/31/2013 [facility] Glucose 93 mg/dL N 70-[address] [place] [address] [phone] Hemoglobin A1c 5.5 % N Less than 6.0 44 Lipid Profile 12/31/2013 [facility] Triglycerides 51 mg/dL N 45 (Trig/Chol/HDL) [address] [place] [address] [phone] Cholesterol 156 mg/dL N 46 HDL Cholesterol 73.3 mg/dL N 47 LDL Cholesterol 73 mg/dL N 48 Laboratory test 06/23/2013 [facility] Hemoglobin A1c 5.4 5-7 finding Laboratory test 09/25/2012 [facility] PSA Screening 2.72 ng/mL 0-4.0 [address] [place] [address] [phone] Laboratory test 07/05/2012 [facility] TSH (Thyroid 1.79 0.34- 5.60 [address] Stimulating Horm) miu/[place] [address] [phone] CBC Auto Diff 07/05/2012 [facility] White Blood Count 5.0 4.8 -10.[address] 10^3/[place] [address] [phone] Red Blood Count 4.50 10^6/uL 4.0-5.4 Hemoglobin [...] Red Blood Cells % 0 Laboratory test 07/05/2012 [facility] Creatine Kinase 76 U/L 0-200 [address] [place] [address] [phone] Lipid Profile 07/05/2012 [facility] Triglycerides 43 mg/dL 40 -200 (Trig/Chol/HDL) [address] [place] [address] [phone] Cholesterol 172 mg/dL Less than 200 HDL Cholesterol 70 mg/dL High 40-60 52 Cholesterol/HDL Ratio 2.5 Average 1-4.44 LDL Cholesterol 93.4 mg/dL Less Than 100 53 Comp Metabolic Panel 07/05/2012 [facility] Sodium 139 mmol/L 133-145 [address] [place] [address] [phone] Potassium 4.3 mmol/L 3.5-5.0 Chloride 103 mmol/L [...] Egfr Non- 74.5 >60 Egfr 95.9 >60 54 Laboratory test 03/27/2012 [facility] PSA Screening 2.85 ng/mL 0-4.0 55 finding [address] [place] [address] [phone] Laboratory test 11/24/2011 [facility] Vitamin B12 303 pg/mL 180-914 finding [address] [place] [address] [phone] TSH 1.34 MIU/ML 0.34-5.60 CBC With Manual 10/26/2011 [facility] White Blood 4.6 CUMM Low 4.8-10.[address] [place] [address] [phone] Red Cell Count 4.13 CUMM Low 4.6-6.2 [...] 0-2 Anisocytosis SLIGHT Macrocytosis FEW Lipid Profile 10/26/2011 [facility] Triglyceride 33 mg/dL Low 40-200 (Trig/Chol/HDL) [address] [place] [address] [phone] Cholesterol 165 mg/dL Less Than 200 56 High Density Lipoprotein 68 mg/dL High 40-60 57 Cholesterol/HDL Ratio 2.43 AVERAGE 1-4.97 Low Density Lipoprotein 90 mg/dL Less Than 100 58 Laboratory test 10/26/2011 [facility] BNP Evaluatr 42.0 pg/mL 0-100 finding [address] [place] [address] [phone] Comp Metabolic 10/26/2011 [facility] Sodium 138 mmol/L 135- 145 Panel [address] [place] [address] [phone] Potassium 4.3 mmol/L 3.5-5.0 Chloride 105 mmol/L 101-111 Co2 (Carbon Dioxide) 28.0 mmol/L 22-32 Anion Gap 5.0 mmol/L 2-11 59 Glucose 102 mg/dL High 70-100 BUN 15 mg/dL 6-24 Creatinine 0.8 mg/dL 0.50-1.40 One Over Creatinine 1.25 BUN/Creatinine Ratio 18.8 8-20 Calcium 9.1 mg/dL 8.1-9.9 Total Protein 5.5 GM/DL Low 6.2-8.1 Albumin 3.7 GM/DL 3.2-5.2 Globulin 1.8 GM/DL Low 2-4 Albumin/Globulin Ratio 2.1 1-3 Bilirubin Total 1.3 mg/dL 0.4-1.5 60 Alkaline Phosphatase 48 U/L 39-117 Alt (SGPT) 14 U/L Low 17-63 Ast (Sgot) 16 U/L 12-42 eGFR Non- 96.7 > 60 eGFR 124.4 > 60 61 Laboratory 09/21/2011 [facility] PSA,Diagnostic 3.63 0-4 62 test finding [address] NG/ML [place], [place] [address] [phone] Laboratory 07/17/2011 [facility] Hemoglobin A1c 5.5 5-7 test finding Urine Culture 07/17/2011 [facility] M --------- 63 & Sensitivi [address] ------- [place] [address] <SEE [phone] NOTE> Laboratory 07/17/2011 [facility] PSA,Diagnostic 13.31 High 0- 4 64 test finding [address] NG/[place] [address] [phone] CBC Auto Diff 06/13/2011 [facility] White Blood Count 5.8 CUMM 4.8-10. [address] [place] [address] [phone] Red Cell Count 4.41 CUMM Low 4.6-6.2 [...] Basophils 0 0-0.2 Comp Metabolic Panel 06/13/2011 [facility] Sodium 140 mmol/L 135-[address] [place] [address] [phone] Potassium 4.8 mmol/L 3.5-5.0 Chloride 106 mmol/L 101-111 Co2 (Carbon Dioxide) 27.0 mmol/L 22-32 Anion Gap 7.0 mmol/L 2-11 65 Glucose 97 mg/dL 70-100 BUN 14 mg/dL 6-24 Creatinine 0.9 mg/dL 0.50-1.40 One Over Creatinine 1.11 BUN/Creatinine Ratio 15.6 8-20 Calcium 9.4 mg/dL 8.1-9.9 Total Protein 6.2 GM/DL 6.2-8.1 Albumin 4.1 GM/DL 3.2-5.2 Globulin 2.1 GM/DL 2-4 Albumin/Globulin Ratio 2.0 1-3 Bilirubin Total 1.7 mg/dL High 0.4-1.5 66 Alkaline Phosphatase 50 U/L 39-117 Alt (SGPT) 14 U/L Low 17-63 Ast (Sgot) 18 U/L 12-42 eGFR Non- 84.4 > 60 eGFR 108.6 > 60 67 Laboratory test 06/13/2011 [facility] Erythrocyte Sed 5 MM/HR 0-[address] [place] [address] [phone] Rheumatoid Factor < 15 IU/mL <15 68 Pattie (Antinuclear 06/13/2011 [facility] Antinuclear AB NEGATIVE Negative Antibodies) [address] [place] [address] [phone] Laboratory test 06/13/2011 [facility] C Reactive < 0.5 mg/dL Less Than finding [address] Protein 0.5 [place] [address] [phone] Thyroxine Free 0.87 ng/dL 0.61-1.24 TSH 1.33 MIU/ML 0.34-5.60 Lyme Disease Serology Negative Negative 69 Testosterone 06/13/2011 [facility] Free 6.2 Abnormal 9-30 70 Free & Total [address] Testosterone ng/[place] [address] [phone] Total Testosterone 327 ng/dL 240-950 71 Laboratory test 05/15/2011 [facility] PSA,Diagnostic 2.96 NG/ML 0-4 [address] [place] [address] [phone] Laboratory test 02/15/2011 [facility] PSA,Diagnostic 3.17 NG/ML 0-4 [address] [place] [address] [phone] Laboratory test 12/27/2010 [facility] PSA,Diagnostic 9.59 NG/ML High 0-4 [address] [place] [address] [phone] Laboratory test 12/07/2010 [facility] PSA,Diagnostic 50.49 High 0-4 [address] NG/[place] [address] [phone] [facility] 09/05/2010 [facility] TSH 2.08 0.34-5. Panel [address] MIU/ML 60 [place] [address] [phone] Comp Metabolic 09/05/2010 [facility] Sodium 138 mmol/L 135- [address] [place] [address] [phone] Potassium 4.4 mmol/L 3.5-5.0 Chloride 105 mmol/L 101-111 Co2 (Carbon Dioxide) 29.0 mmol/L 22-32 Anion Gap 4.0 mmol/L 2-11 76 Glucose 98 mg/dL 70-100 BUN 18 mg/dL 6-24 Creatinine 0.80 mg/dL 0.50-1.40 One Over Creatinine 1.20 BUN/Creatinine Ratio 22.5 High 8-20 Calcium 8.9 mg/dL 8.1-9.9 Total Protein 6.1 GM/DL Low 6.2-8.1 Albumin 3.9 GM/DL 3.2-5.2 Globulin 2.2 GM/DL 2-4 Albumin/Globulin Ratio 1.8 1-3 Bilirubin Total 1.2 mg/dL 0.4-1.5 77 Alkaline Phosphatase 47 U/L 39-117 Alt (SGPT) 15 U/L Low 17-63 Ast (Sgot) 19 U/L 12-42 eGFR Non- 97.0 > 60 eGFR 124.8 > 60 78 Lipid Profile 09/05/2010 [facility] Triglyceride 42 mg/dL 40- 200 (Trig/Chol/HDL) [address] [place] [address] [phone] Cholesterol 176 mg/dL Less Than 200 79 High Density Lipoprotein 68 mg/dL High 40-60 80 Cholesterol/HDL Ratio 2.59 AVERAGE 1-4.97 Low Density Lipoprotein 100 mg/dL Less Than 100 81 CBC Auto Diff 09/05/2010 [facility] White Blood 5.0 CUMM 4.8- 10.[address] [place] [address] [phone] Red Cell Count 4.33 CUMM Low 4.6-6.2 [...] Eosinophils 0.1 0-0.6 Abs Basophils 0 0-0.2 DR Saab's Lab 09/01/2009 [facility] TSH 1.46 MIU/ML 0.34- 5.60 Panel 101 [place] [address] [phone] Comp Metabolic 09/01/2009 [facility] Sodium 135 mmol/L 135- 145 Panel 101 [place] [address] [phone] Potassium 4.7 mmol/L 3.5-5.0 Chloride 103 mmol/L 101-111 Co2 (Carbon Dioxide) 29.0 mmol/L 22-32 Anion Gap 3.0 mmol/L 2-11 82 Glucose 110 mg/dL High 70-100 83 BUN 17 mg/dL 6-24 Creatinine 1.00 mg/dL 0.50-1.40 One Over Creatinine 1.00 BUN/Creatinine Ratio 17.0 8-20 Calcium 8.6 mg/dL 8.1-9.9 84 Total Protein 5.9 GM/DL Low 6.2-8.1 Albumin 4.0 GM/DL 3.2-5.2 Globulin 1.9 GM/DL Low 2-4 Albumin/Globulin Ratio 2.1 1-3 Bilirubin Total 0.9 mg/dL 0.4-1.5 85 Alkaline Phosphatase 69 U/L 39-117 Alt (SGPT) 14 U/L Low 17-63 Ast (Sgot) 19 U/L 12-42 eGFR Non- 80.0 > 60 eGFR 96.7 > 60 86 Lipid Profile 09/01/2009 [facility] Triglyceride 47 mg/dL 40- 200 (Trig/Chol/HDL) [address] [place] [address] [phone] Cholesterol 170 mg/dL Less Than 200 87 High Density Lipoprotein 63 mg/dL High 40-60 88 Cholesterol/HDL Ratio 2.70 AVERAGE 1-4.97 Low Density Lipoprotein 98 mg/dL Less Than 100 89 CBC With 09/01/2009 [facility] White Blood 5.4 CUMM 4.8-10.8 Electronic Diff [address] [place] [address] [phone] Red Cell Count 4.47 CUMM Low 4.6-6.2 [...] 0.1 0-0.6 Abs Basophils 0 0-0.2 Laboratory 01/12/2009 [facility] PSA,Diagnostic 2.00 0-4 90 , 91 test finding [address] NG/[place] [address] [phone] Laboratory 08/11/2008 [facility] TSH 1.07 0.34-5. test finding [address] MIU/ML 60 [place] [address] [phone] Lipid Profile 08/11/2008 [facility] Triglyceride 24 mg/dL Low 40-200 (Trig/Chol/HDL [address] ) [place], [place] [id number] [phone] Cholesterol 176 mg/dL Less Than 200 92 High Density Lipoprotein 66 mg/dL High 40-60 93 Cholesterol/HDL Ratio 2.67 AVERAGE 1-4.97 Low Density Lipoprotein 105 mg/dL High Less Than 100 94 Comp Metabolic Panel 08/11/2008 [facility] Sodium 139 mmol/L 135-[address] [place] [address] [phone] Potassium 5.2 mmol/L High 3.5-5.0 Chloride 108 mmol/L 101-111 Co2 (Carbon Dioxide) 30.0 mmol/L 22-32 Anion Gap 1.0 mmol/L Low 2-11 95 Glucose 103 mg/dL High 70-100 96 BUN 12 mg/dL 6-24 Creatinine 0.80 mg/dL 0.50-1.40 One Over Creatinine 1.20 BUN/Creatinine Ratio 15.0 8-20 Calcium 9.3 mg/dL 8.1-9.9 97 Total Protein 5.7 GM/DL Low 6.2-8.1 Albumin 3.9 GM/DL 3.2-5.2 Globulin 1.8 GM/DL Low 2-4 Albumin/Globulin Ratio 2.2 1-3 Bilirubin Total 1.2 mg/dL 0.4-1.5 98 Alkaline Phosphatase 54 U/L 39-117 Alt (SGPT) 14 U/L Low 17-63 Ast (Sgot) 19 U/L 12-42 CBC With 08/11/2008 [facility] White Blood 4.6 CUMM Low 4.8- 10.8 Electronic Diff [address] [place] [address] [phone] Red Cell Count 4.54 CUMM Low 4.6-6.2 [...] 0-0.6 Abs Basophils 0 0-0.2 Laboratory test 01/01/2008 [facility] PSA,Diagnostic 1.59 0- 4 [address] NG/[place] [address] [phone] CBC With 07/10/2007 [facility] White Blood Count 4.7 CUMM Low 4.8-10. Electronic Diff [address] [place] [address] [phone] Abs Basophils 0 0-0.2 Abs Eosinophils 0 0-0.6 Absolute Neutrophil Count 2.9 1.5-7.7 Abs Lymphs 1.3 1.0-4.8 Abs Mononuclear 0.4 0-0.8 Basophil % 0.6 % 0-2 Hematocrit 42 % 42-52 Hemoglobin 14.4 g/dL 14.0-18.0 Eosinophil % 0.8 % 0-6 Gran % 61.5 % 38-83 Lymph % 28.0 % 20-45 Mean Corpuscular HGB Cone 35 g/dL 32-36 Mean Corpuscular Hemoglob 33 pg High 27-31 Mean Corpuscular Volume 96 um3 High 80-94 Mean Platelet Volume 10.2 um3 7.4-10.4 Mononuclear % 9.1 % High 1-9 Platelet Count 237 CUMM 150-450 Red Cell Count 4.35 CUMM Low 4.6-6.2 Redcell Distribution WDTH 14 % 10.5-15 Comp Metabolic Panel 07/10/2007 [facility] One Over Creatinine 1.[address] [place] [address] [phone] Anion Gap -3.0 mmol/L Low 2-11 100 Albumin/Globulin Ratio 1.6 1-3 Albumin 3.7 GM/DL 3.2-5.2 Alkaline Phosphatase 51 U/L 39-117 Alt (SGPT) 14 U/L Low 17-63 Ast (Sgot) 18 U/L 12-42 BUN 18 mg/dL 6-24 Calcium 8.7 mg/dL 8.7-10.2 Chloride 110 mmol/L 101-111 Co2 (Carbon Dioxide) 31.0 mmol/L 22-32 Globulin 2.3 GM/DL 2-4 Glucose 100 mg/dL 70-105 Potassium 4.8 mmol/L 3.5-5.0 Sodium 138 mmol/L 135-145 Bilirubin Total 0.9 mg/dL 0.4-1.5 Total Protein 6.0 GM/DL Low 6.2-8.1 BUN/Creatinine Ratio 20.0 8-20 Creatinine 0.9 mg/dL 0.5-1.4 Lipid Profile 07/10/2007 [facility] Cholesterol/HDL 2.87 1- 4.97 (Trig/Chol/HDL) [address] [place] [address] [phone] Cholesterol 172 mg/dL Less Than 200 101 Triglyceride 31 mg/dL Low 40-200 High Density Lipoprotein 60 mg/dL 40-60 102 Low Density Lipoprotein 106 mg/dL High Less Than 100 103 Laboratory test 07/10/2007 [facility] PSA Screening 2.29 NG/ML 0-4 [address] [place] [address] [phone] TSH 1.46 MIU/ML 0.34-5.60 1 Because ethnic data is not always [...] 5 Kidney failure <15 (or dialysis) 2 AM 8.7-22.4 PM <10 3 *Ascorbic acid is present which may interfere with detection of blood. 4 [facility] Severe Sepsis and Septic Shock Management Bundle Measure requires all lactic acids initially measuring >2.0 mmol/L be repeated. 5 Because ethnic data is not always readily [...] 15-29 5 Kidney failure <15 (or dialysis) 6 Because ethnic data is not always readily [...] 15-29 5 Kidney failure <15 (or dialysis) 7 >100 to <200 pg/mL: likely compensated congestive heart failure (CHF) 200 to 400 pg/mL: likely moderate CHF >400 pg/mL: likely moderate to severe CHF 8 Medical Historian: [id number] 9 Serum levels of PSA measured using the Cluey DXI Hybritech immunoassay should not be interpreted as absolute evidence of the presence or absence of disease. The PSA value should be used in conjunction with other pertinent clinical diagnostic procedures. The values obtained with different assay methods or kits cannot be used interchangeably. 10 Desirable: <150 Borderline High: 150-199 High: 200-499 Very High: >500 11 Desirable: <200 Borderline High: 200-239 High: >239 12 Low: <40 Desirable: 40-60 High: >60 13 Desirable: <100 Near Optimal: 100-129 Borderline High: 130-159 High: 160-189 Very High: >189 14 [id number] SEE RESULT BELOW Name: CHRIS WALLIS JR : [address]: Amee Banuelos MD Acct: [id number] Unit: [id number] AGE: 71 Location: [facility] Re10/07/16 SEX: M Status: DEP ER SPEC: [id number] JC: 10/07/1638 [facility] DR: Amee Banuelos MD REQ: [id number] RECD: 10/07/16166 STATUS: NATANAEL ESCOBAR DR: Geraldo Saab III, MD _ S[facility]: Urine Culture COMMENTS: [id number] Procedure Result Reported Site Urine Culture Final 10/08/16- 1250 ML No Growth (<1,000 CFU/mL) * ML - MAIN LAB (PSC1) . END OF REPORT * ML=Testing performed at Main Lab DEPARTMENT OF PATHOLOGY, [address] [place] [address] Jimmy Prater M.D. Director [facility] # [id number] Medical Historian: [id number] 17 Because ethnic data is not always readily [...] 15-29 5 Kidney failure <15 (or dialysis) 18 >100 to <200 pg/mL: likely compensated congestive heart failure (CHF) 200 to 400 pg/mL: likely moderate CHF >400 pg/mL: likely moderate to severe CHF 19 Desirable <150 Borderline high 150-199 High 200-499 Very High >500 20 Desirable <200 Borderline high 200-239 High >239 21 Low <40 Desirable: 40-60 High: >60 22 Desirable: <100 mg/dL Near Optimal: 100-129 mg/dL Borderline High: 130-159 mg/dL High: 160-189 mg/dL Very High: >189 mg/dL 23 *Ascorbic acid is present which may interfere with detection of blood. 24 Because ethnic data is not always [...] 5 Kidney failure <15 (or dialysis) 25 >100 to <200 pg/mL: likely compensated congestive heart failure (CHF) 200 to 400 pg/mL: likely moderate CHF >400 pg/mL: likely moderate to severe CHF 26 [facility] Severe Sepsis and Septic Shock Management Bundle Measure requires all lactic acids initially measuring >2.0 mmol/L be repeated. 27 Because ethnic data is not always readily [...] 15-29 5 Kidney failure <15 (or dialysis) 28 Acute inflammation: >10.00 29 Reference Range and Interpretation: TnI (ng/mL) Interpretation Less Than 0.03 ng/mL Not supportive of diagnosis of CO 0.03 - 0.50 ng/mL Indeterminate: suggest serial studies if clinically indicated. Greater than 0.5 ng/mL Consistent with diagnosis of CO 30 Serum levels of PSA measured using the Cluey DXI Hybritech immunoassay should not be interpreted as absolute evidence of the presence or absence of disease. The PSA value should be used in conjunction with other pertinent clinical diagnostic procedures. The values obtained with different assay methods or kits cannot be used interchangeably. 31 CALL RESULTS TO TODAY [phone] 32 Because ethnic data is not always readily [...] 15-29 5 Kidney failure <15 (or dialysis) 33 Reference Range and Interpretation: TnI (ng/mL) Interpretation Less Than 0.03 ng/mL Not supportive of diagnosis of CO 0.03 - 0.50 ng/mL Indeterminate: suggest serial studies if clinically indicated. Greater than 0.5 ng/mL Consistent with diagnosis of CO 34 CALL RESULTS TO TODAY [phone] FASTING 36 Because ethnic data is not always readily [...] 15-29 5 Kidney failure <15 (or dialysis) 37 >100 to <200 pg/mL: likely compensated congestive heart failure (CHF) 200 to 400 pg/mL: likely moderate CHF >400 pg/mL: likely moderate to severe CHF 38 Desirable <150 Borderline high 150-199 High 200-499 Very High >500 39 Desirable <200 Borderline high 200-239 High >239 40 Low <40 Desirable: 40-60 High: >60 41 Desirable: <100 mg/dL Near Optimal: 100-129 mg/dL Borderline High: 130-159 mg/dL High: 160-189 mg/dL Very High: >189 mg/dL 42 FASTING 43 Because ethnic data is not always [...] 5 Kidney failure <15 (or dialysis) 44 Therapeutic target for the treatment of diabetes Mellitus patients is <7% HBA1C, and in selective patients <6.0%.Please refer to [place] [employer] Diabetic care guidelines for further information. 45 Desirable <150 Borderline high 150-199 High 200-499 Very High >500 46 Desirable <200 Borderline high 200-239 High >239 47 Low <40 Desirable: 40-60 High: >60 48 Desirable <100 Near Optimal 100-129 Borderline high 130-159 High 160-189 Very High >189 49 Serum levels of PSA measured using the Cluey DXI Hybritech immunoassay should not be interpreted as absolute evidence of the presence or absence of disease. The PSA value should be used in conjunction with other pertinent clinical diagnostic procedures. The values obtained with different assay methods or kits cannot be used interchangeably. 50 PT IS FASTING 51 PT IS FASTING 52 HDL Interpretation: Undesirable: High Risk: Less than 40 MG/DL Desirable: Low Risk: Greater than 60 MG/DL 53 LDL Interpretation: Low Risk Optimal Level: LDL Less than 100 MG/DL Near or Above Optimal: LDL 100-129 MG/DL Borderline High Risk: LDL 130-159 MG/DL High Risk: LDL 160-189 MG/DL Very High Risk: LDL Greater than 189 MG/DL 54 Because ethnic data is not always readily [...] 15-29 5 Kidney failure <15 (or dialysis) 55 Serum levels of PSA measured using the Cluey DXI Hybritech immunoassay should not be interpreted as absolute evidence of the presence or absence of disease. The PSA value should be used in conjunction with other pertinent clinical diagnostic procedures. The values obtained with different assay methods or kits cannot be used interchangeably. 56 CHOLESTEROL INTERPRETATION: Desirable: Less than 200 MG/DL Borderline-High Risk: 200-239 MG/DL High-Risk: 240 MG/DL and over 57 HDL INTERPRETATION: Undesirable: High Risk: Less than 40 MG/DL Desirable: Low Risk: Greater than 60 MG/DL 58 LDL INTERPRETATION: Low Risk Optimal Level: LDL Less than 100 MG/DL Near or Above Optimal: LDL 100-129 MG/DL Borderline High Risk: LDL 130-159 MG/DL High Risk: LDL 160-189 MG/DL Very High Risk: LDL Greater than 189 MG/DL 59 Anion gap measurement may be of limited value in the presence of any alkalosis, especially in a combined acid base disorder. . 60 A metabolite of Naproxen, O-desmethylnaproxen, has been shown to interfere with the Jendrassik-Kevin method for measuring total bilirubin. Samples from patients who have taken Naproxen have shown spurious elevation in total bilirubin levels. 61 Because ethnic data is not always readily [...] 15-29 5 Kidney failure <15 (or dialysis) 62 * SERUM LEVELS OF PSA MEASURED USING THE ANTONIO Nevolution ACCESS HYBRITECH IMMUNOASSAY SHOULD NOT BE INTERPRETED ABSOLUTE EVIDENCE OF THE PRESENCE OR ABSENCE OF DISEASE. THE PSA VALUE SHOULD BE USED IN CONJUNCTION WITH OTHER PERTINENT CLINICAL DIAGNOSTIC PROCEDURES. The values obtained with different assay methods or kits cannot be used interchangeably. 63 RUN DATE: 07/19/11 [facility] NMI LIVE PAGE 1 RUN TIME: 1149 Specimen Inquiry RUN USER: INTERFACE Name: CHRIS Aleena Accaleena#: [id number] Status: REG REF Re07/17/11 Age/Sex: 66/M Unit#: [id number] Location: [facility] : 45 SPEC #: [id number] JC: 07/17/11 STATUS: COMP REQ #: [id number] RECD: 07/17/11 [facility] DR: Geraldo Saab III, MD SOURCE: URINE ENTR: 07/17/[address] [facility] [address]: RONNIE: ORDERED: URINE C S QUERIES: MEDENT REQUISITION # [id number] ACT WKST: UR 07/19/11 #1 Procedure Result [...] *These antibiotics are not available in the [facility] Formulary. Contact the Microbiology Department for any additional antibiotic reporting. [facility] State Permit #[id number] [facility] [employer] [facility] [address] DEPARTMENT OF PATHOLOGY, [facility] [employer] [place], [place] [address] [facility] Permit #[id number] Jimmy Prater M.D. Director Michelle Nelson M.D. [employer] 64 * SERUM LEVELS OF PSA MEASURED USING THE ANTONIO DAVID ACCESS HYBRITECH IMMUNOASSAY SHOULD NOT BE INTERPRETED ABSOLUTE EVIDENCE OF THE PRESENCE OR ABSENCE OF DISEASE. THE PSA VALUE SHOULD BE USED IN CONJUNCTION WITH OTHER PERTINENT CLINICAL DIAGNOSTIC PROCEDURES. The values obtained with different assay methods or kits cannot be used interchangeably. 65 Anion gap measurement may be of limited value in the presence of any alkalosis, especially in a combined acid base disorder. . 66 A metabolite of Naproxen, O-desmethylnaproxen, has been shown to interfere with the Jendrassik-Kevin method for measuring total bilirubin. Samples from patients who have taken Naproxen have shown spurious elevation in total bilirubin levels. 67 Because ethnic data is not always readily [...] 15-29 5 Kidney failure <15 (or dialysis) 68 Test Performed by: [facility] Dpt of Lab Med and Pathology [address] [place] [id number] Senior Trainer: Kobe Jimenez III, M.D. 69 Serologic response to B. burgdorferi infection is not detected, but cannot rule out early infection during which low or undetectable antibody levels to B. burgdorferi may be present. If clinically indicated, a new serum specimen should be submitted in 7-14 days. Test Performed by: [facility] Dpt of Lab Med and Pathology [address] [place] [address] Senior Trainer: Kobe Jimenez III, M.D. 70 Test Performed by: [facility] Dpt of Lab Med and Pathology [address] [place] [address] Senior Trainer: Kobe Jimenez III, M.D. 71 Test Performed by: [facility] Dpt of Lab Med and Pathology [address] [place] [address] Senior Trainer: Kobe Jimenez III, M.D. 72 * SERUM LEVELS OF PSA MEASURED USING THE ANTONIO Nevolution ACCESS HYBRITECH IMMUNOASSAY SHOULD NOT BE INTERPRETED ABSOLUTE EVIDENCE OF THE PRESENCE OR ABSENCE OF DISEASE. THE PSA VALUE SHOULD BE USED IN CONJUNCTION WITH OTHER PERTINENT CLINICAL DIAGNOSTIC PROCEDURES. The values obtained with different assay methods or kits cannot be used interchangeably. 73 * SERUM LEVELS OF PSA MEASURED USING THE ANTONIO Nevolution ACCESS HYBRITECH IMMUNOASSAY SHOULD NOT BE INTERPRETED ABSOLUTE EVIDENCE OF THE PRESENCE OR ABSENCE OF DISEASE. THE PSA VALUE SHOULD BE USED IN CONJUNCTION WITH OTHER PERTINENT CLINICAL DIAGNOSTIC PROCEDURES. 74 * SERUM LEVELS OF PSA MEASURED USING THE ANTONIO Nevolution ACCESS HYBRITECH IMMUNOASSAY SHOULD NOT BE INTERPRETED ABSOLUTE EVIDENCE OF THE PRESENCE OR ABSENCE OF DISEASE. THE PSA VALUE SHOULD BE USED IN CONJUNCTION WITH OTHER PERTINENT CLINICAL DIAGNOSTIC PROCEDURES. 75 * SERUM LEVELS OF PSA MEASURED USING THE ANTONIO Nevolution ACCESS HYBRITECH IMMUNOASSAY SHOULD NOT BE INTERPRETED ABSOLUTE EVIDENCE OF THE PRESENCE OR ABSENCE OF DISEASE. THE PSA VALUE SHOULD BE USED IN CONJUNCTION WITH OTHER PERTINENT CLINICAL DIAGNOSTIC PROCEDURES. 76 Anion gap measurement may be of limited value in the presence of any alkalosis, especially in a combined acid base disorder. . 77 A metabolite of Naproxen, O-desmethylnaproxen, has been shown to interfere with the Jenkaushikik-Kevin method for measuring total bilirubin. Samples from [...] Risk: LDL Greater than 189 MG/DL 82 Anion gap measurement may be of limited value in the presence of any alkalosis, especially in a combined acid base disorder. . 83 Note change in reference range as of 11/14/07. The change was based on recommendations from the [place] [employer]. 84 Please note change in reference range effective 07 . 85 A metabolite of Naproxen, O-desmethylnaproxen, has been shown to interfere with the Jendrassik-Kevin method for measuring total bilirubin. Samples from patients who have taken Naproxen have shown spurious elevation in total bilirubin levels. 86 Because ethnic data is not always readily [...] 15-29 5 Kidney failure <15 (or dialysis) 87 CHOLESTEROL INTERPRETATION: Desirable: Less than 200 MG/DL Borderline-High Risk: 200-239 MG/DL High-Risk: 240 MG/DL and over 88 HDL INTERPRETATION: Undesirable: High Risk: Less than 40 MG/DL Desirable: Low Risk: Greater than 60 MG/DL 89 LDL INTERPRETATION: Low Risk Optimal Level: LDL Less than 100 MG/DL Near or Above Optimal: LDL 100-129 MG/DL Borderline High Risk: LDL 130-159 MG/DL High Risk: LDL 160-189 MG/DL Very High Risk: LDL Greater than 189 MG/DL 90 PATIENT MAY HAVE RESULTS PER DOCTOR'S AUTHORIZATION. Questions regarding this report should be directed to your doctor. 91 * SERUM LEVELS OF PSA MEASURED USING THE ANTONIO Nevolution ACCESS HYBRITECH IMMUNOASSAY SHOULD NOT BE INTERPRETED ABSOLUTE EVIDENCE OF THE PRESENCE OR ABSENCE OF DISEASE. THE PSA VALUE SHOULD BE USED IN CONJUNCTION WITH OTHER PERTINENT CLINICAL DIAGNOSTIC PROCEDURES. 92 CHOLESTEROL INTERPRETATION: Desirable: Less than 200 MG/DL Borderline-High Risk: 200-239 MG/DL High-Risk: 240 MG/DL and over 93 HDL INTERPRETATION: Undesirable: High Risk: Less than 40 MG/DL Desirable: Low Risk: Greater than 60 MG/DL 94 LDL INTERPRETATION: Low Risk Optimal Level: LDL Less than 100 MG/DL Near or Above Optimal: LDL 100-129 MG/DL Borderline High Risk: LDL 130-159 MG/DL High Risk: LDL 160-189 MG/DL Very High Risk: LDL Greater than 189 MG/DL 95 Anion gap measurement may be of limited value in the presence of any alkalosis, especially in a combined acid base disorder. . 96 Note change in reference range as of 11/14/07. The change was based on recommendations from the [place] [employer]. 97 Please note change in reference range effective 07 . 98 A metabolite of Naproxen, O-desmethylnaproxen, has been shown to interfere with the Jenkaushikik-Kevin method for measuring total bilirubin. Samples from patients who have taken Naproxen have shown spurious elevation in total bilirubin levels. 99 * SERUM LEVELS OF PSA MEASURED USING THE ANTONIO DAVID ACCESS HYBRITECH IMMUNOASSAY SHOULD NOT BE INTERPRETED ABSOLUTE EVIDENCE OF THE PRESENCE OR ABSENCE OF DISEASE. THE PSA VALUE SHOULD BE USED IN CONJUNCTION WITH OTHER PERTINENT CLINICAL DIAGNOSTIC PROCEDURES. 100 Anion gap measurement may be of limited value in the presence of any alkalosis, especially in a combined acid base disorder. . 101 CHOLESTEROL INTERPRETATION: Desirable: Less than 200 MG/DL Borderline-High Risk: 200-239 MG/DL High-Risk: 240 MG/DL and over 102 HDL INTERPRETATION: Undesirable: High Risk: Less than 40 MG/DL Desirable: Low Risk: Greater than 60 MG/DL 103 LDL INTERPRETATION: Low Risk Optimal Level: LDL Less than 100 MG/DL Near or Above Optimal: LDL 100-129 MG/DL Borderline High Risk: LDL 130-159 MG/DL High Risk: LDL 160-189 MG/DL Very High Risk: LDL Greater than 189 MG/DL 104 * SERUM LEVELS OF PSA MEASURED USING THE ANTONIO DAVID ACCESS HYBRITECH IMMUNOASSAY SHOULD NOT BE INTERPRETED ABSOLUTE EVIDENCE OF THE PRESENCE OR ABSENCE OF DISEASE. THE PSA VALUE SHOULD BE USED IN CONJUNCTION WITH OTHER PERTINENT CLINICAL DIAGNOSTIC PROCEDURES. Procedures Date Code Description Status 05/20/2018 91991 EKG Tracing & Interpretation Completed 01/22/2018 74827 Neurostimulator Pulse Generator Analysis W/O Completed Reprogramming 12/19/2017 02214 EKG Tracing & Interpretation Completed 08/07/2017 73429 ECG Monitor/Recording W/Visual Superimposition Scanning Completed 07/13/2017 13724 Treadmill Interp/Report Only Completed 07/13/2017 40540 Stress Test Supervsn W/Out I/R Completed 07/10/2017 44868 ECHO Transthoracic, Real-Time 2D With Doppler And Color Completed Flow 07/10/2017 08884 ECHO Transthoracic, Real-Time 2D With Doppler And Color Completed Flow 06/21/2017 48494 EKG Tracing & Interpretation Completed 09/04/2016 [id number] Colonoscopy Completed 06/20/2016 78113 EKG Tracing & Interpretation Completed 04/07/2016 54938 EKG Tracing & Interpretation Completed 01/05/2016 45975 EKG Tracing & Interpretation Completed 04/21/2015 42830 EKG Tracing & Interpretation Completed 12/16/2014 94007 ECHO Transthoracic, Real-Time 2D With Doppler And Color Completed Flow 12/08/2014 68250 EKG Tracing & Interpretation Completed 12/04/2014 78079 Treadmill Interp/Report Only Completed 12/04/2014 48152 Stress Test Supervsn W/Out I/R Completed 09/24/2014 15243 Pulmonary Function><Bronchodil Completed 09/24/2014 94642 Diffusing Capacity Completed 09/24/2014 53936 Plethysmography Determination Lung Volumes & Per Airway Completed Resist 09/09/2014 13717 ECHO Transthoracic, Real-Time 2D With Doppler And Color Completed Flow 09/07/2014 25739 EKG Tracing & Interpretation Completed 06/18/2014 42756 Repair Hernia Inguinal > 5Yrs, Reducible Completed 06/18/2014 90161 Repair Hernia Umbilical > 5 Yrs, Reducible Completed 06/12/2014 73749 ECHO Transthoracic, Real-Time 2D With Doppler And Color Completed Flow 05/29/2014 87999 Treadmill Interp/Report Only Completed 05/29/2014 71094 Stress Test Supervsn W/Out I/R Completed 04/21/2014 55827 EKG Tracing & Interpretation Completed 09/24/2013 19822 Holter Monitoring 24 HR New Completed 09/09/2013 00075 ECHO Stress Test Incl Perf Contiuous ekg Monitoring Completed W/Phys Superv 09/05/2013 33994 ECHO Transthoracic, Real-Time 2D With Doppler And Color Completed Flow 08/08/2013 02206 EKG Tracing & Interpretation Completed 05/30/2012 70004 EKG Tracing & Interpretation Completed 11/23/2011 05370 Treadmill Interp/Report Only Completed 11/23/2011 03162 Stress Test Supervsn W/Out I/R Completed 11/22/2011 56974 ECHO Stress Test Incl Perf Contiuous ekg Monitoring Completed W/Phys Superv 11/22/2011 55095 ECHO Stress Test Incl Perf Contiuous ekg Monitoring Completed W/Phys Superv 08/24/2011 71389 Color Flow Doppler/Interp & Reprt Completed 08/24/2011 98529 Pulse Wave/Continuous-Interp.RPT Completed 08/24/2011 13410 ECHO Transthorasic Realtime 2D W Doppler & Color Flow Completed Hosp 08/17/2011 51362 EKG Tracing & Interpretation Completed 09/22/2005 [id number] Colonoscopy Completed Encounters Type Date Location Provider Dx Diagnosis Office Visit 05/20/2018 [facility] Isabel Correa, 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 G47.33 Obstructive sleep apnea (adult) (pediatric) R42 Dizziness and giddiness R26.81 Unsteadiness on feet Office Visit 03/15/2018 1:45p [facility] Drew Thomas G2Nguyễn Parkinson's [facility] 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 G47.33 Obstructive sleep apnea (adult) (pediatric) R42 Dizziness and giddiness R26.81 Unsteadiness on feet Office Visit 01/22/2018 9:15a [facility] Drew Thomas, G2Nguyễn Parkinson's [facility] 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 G47.33 Obstructive sleep apnea (adult) (pediatric) R42 Dizziness and giddiness R26.81 Unsteadiness on feet 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 R68.84 Jaw pain Office Visit 06/21/2017 9:00a [facility] Nahun Holder G20 Parkinson 's Of [facility] Josue Clay disease R94.39 Abnormal result of other cardiovascular function study R42 Dizziness and giddiness R06.00 Dyspnea, unspecified I49.3 Ventricular premature depolarization Office Visit 04/12/2017 [facility] Internal Geraldo Cruz M26.623 Arthralgia of 11:40a Kelsey Saab M.D. bilateral [place] temporomandibular joint Office Visit 04/10/2017 [facility] Internal Geraldo Cruz Z00.00 Encntr for general 1:20p Kesley Saab M.D. adult medical exam w/o [place] abnormal findings G20 Parkinson's disease G47.30 Sleep apnea, unspecified E78.00 Pure hypercholesterolemia, unspecified N40.0 Benign prostatic hyperplasia without lower urinry tract symp M25.569 Pain in unspecified knee K21.9 Gastro-esophageal reflux disease without esophagitis Office Visit 12/29/2016 [facility] Ck Bruno G2Nguyễn Parkinson's 3:30p Clinic Josue Alaniz disease G47.30 Sleep apnea, unspecified Office Visit 07/11/2016 9:40a [facility] Internal John Dyer NP M79.672 Pain in left Medicine - foot [place] Office Visit 06/20/2016 10:20a [facility] Nahun Holder G2Nguyễn Parkinson 's [place] Clay disease G47.30 Sleep apnea, unspecified R60.9 Edema, unspecified Office Visit 06/07/2016 3:30p [facility] C[facility] Bruno G2Nguyễn Parkinson's Services Of Nena Alaniz M.D. disease Office Visit 05/18/2016 10:40a [facility] Internal Kusum Bermudez, J20.9 Acute bronchitis, Medicine - N.P. unspecified [place] J01.90 Acute sinusitis, unspecified Office Visit 05/05/2016 [facility] Shira G47.33 Obstructive sleep 11:45a Sleep Services Of [place] [place], RN, apnea (adult) [facility] MACHINE HOOP MAKER HELPER-BC (pediatric) Office Visit 04/07/2016 [facility] Internal Geraldo Cruz Z00.01 Encounter for 9:40a Kelsey Saab M.D. general adult [place] medical exam w abnormal findings G20 Parkinson's disease G47.30 Sleep apnea, unspecified E78.00 Pure hypercholesterolemia, unspecified N40.0 Benign prostatic hyperplasia without lower urinry tract symp R60.0 Localized edema Office Visit 03/10/2016 11:00a [facility] Internal Geraldo Cruz J06.9 Acute upper Kelsey Saab M.D. respiratory [place] infection, unspecified Office Visit 01/28/2016 9:00a [facility] Internal Maxi D17.21 Benign lipomatous Kelsey Kaiser M.D. neoplasm of skin, [place] subcu of right arm R29.6 Repeated falls R22.31 Localized swelling, mass and lump, right upper limb Office Visit 01/05/2016 [facility] Internal Geraldo Cruz Z01.810 Encounter for 11:20a Kelsey Saab M.D. preprocedural [place] cardiovascular examination G20 Parkinson's disease G47.30 Sleep apnea, unspecified Office Visit 11/24/2015 [facility] Ck Bruno G20 Parkinson's 9:15a Clinic Josue Alaniz disease Office Visit 06/01/2015 [facility] Biun Bruno G20 Parkinson's 2:45p Services Of [facility] Josue Alaniz disease Office Visit 04/21/2015 [facility] Nahun Holder G20 Parkinson's 11:40a Josue Clay disease E78.0 Pure hypercholesterolemia R07.9 Chest pain, unspecified R06.00 Dyspnea, unspecified R94.31 Abnormal electrocardiogram [ECG] [EKG] Office 02/10/2015 Maddie Bruno G20 Parkinson's disease Visit 3:15p Neurologic Jos[place] Alaniz Services Of [facility] Office 12/24/2014 Maddie Holder E78.0 Pure hypercholesterolemia Visit 2:40p Cardiology Josue Clay R07.9 Chest pain, unspecified R06.00 Dyspnea, unspecified R00.2 Palpitations Office Visit 12/03/2014 2:00p [facility] HEATHER Marquez 426.4 Right Bundle Branch Block 272.0 Hypercholesterolemia Pure 786.50 Pain Chest Unspec 427.69 Premature Beats Other Office Visit 12/02/2014 4:00p [facility] Internal Geraldo Cruz 786.50 Pain Chest Unspec Kelsey Saab M.D. [place] Office Visit 11/18/2014 2:30p [facility] Ck SPriti 327.23 Obstructive Sleep Services Of Nena Alaniz M.D. Apnea Adult & Pediatric 332.0 Paralysis Agitans Office Visit 10/06/2014 [facility] And Shira 327.23 Obstructive Sleep 10:15a Sleep Services Of [place] [place], RN, Apnea Adult & [facility] MACHINE HOOP MAKER HELPER-BC Pediatric Office Visit 10/01/2014 Pulmonology And Sarah Muniz, 786.09 Dyspnea & 2:45p Sleep Services Of Respiratory [facility] Abnormalities Other Office Visit 09/07/2014 [facility] Nahun Holder 786.09 Dyspnea & 3:40p Josue Clay Respiratory Abnormalities Other 794.31 Electrocardiogram (ECG) (EKG) Abnormal 426.4 Right Bundle Branch Block Office Visit 09/03/2014 1:00p Pulmonology And Josef Malik, 786.05 Shortness Of Sleep Services Of Josue Breath [facility] Office Visit 08/31/2014 2:40p [facility] Internal Geraldo Cruz V06.1 Diphtheria- Tetan Kelsey Saab M.D. us-Pertusis [place] Combined (DTaP) V03.82 Streptococcus Pneumoniae Vaccination Spec Other 786.05 Shortness Of Breath Office Visit 05/29/2014 11:30a [facility] Nahun Holder 550.90 Hernia Inguinal Josue Clay W/O Obstruct Or Gangrene Unilateral Unspec 272.0 Hypercholesterolemia Pure 426.4 Right Bundle [place] Block 794.31 Electrocardiogram (ECG) (EKG) Abnormal 414.01 Coronary Atherosclerosis [place] Office Visit 05/21/2014 4:00p [facility] Rosaline Cruz 550.90 Hernia Inguinal Kelsey Saab M.D. W/O Obstruct Or [place] Gangrene Unilateral Unspec Office Visit 05/07/2014 4:00p [facility] Internal Geraldo Cruz 550.90 Hernia Inguinal Medicine Keyla ManciaD. W/O Obstruct Or [place] Gangrene Unilateral Unspec Office Visit 04/28/2014 2:45p [facility] Ck [place] 332.0 Paralysis Agitans Services Of Nena Alaniz M.D. Office Visit 04/23/2014 9:20a [facility] Internal Geraldo Cruz 465.9 URI Upper Kelsey Saab M.D. Respiratory [place] Infections Acute Unspec Sites 332.0 Paralysis Agitans Office 04/21/2014 Maddie Holder 272.0 Hypercholesterolemia Pure Visit 3:00p Cardiology Josue Clay 794.31 Electrocardiogram (ECG) (EKG) Abnormal 426.4 Right Bundle Branch Block Office Visit 03/02/2014 [facility] Internal Geraldo Cruz 465.9 URI Upper Respiratory 2:20p Kelsey Saab M.D. Infections Acute [place] Unspec Sites Office Visit 10/29/2013 Maddie Bruno 332.0 Paralysis Agitans 1:45p Neurologic Josue Alaniz Services Of [facility] Office Visit 08/08/2013 Maddie Holder 794.31 Electrocardiogram 3:20p Cardiology Josue Clay (ECG) (EKG) Abnormal 332.0 Paralysis Agitans 272.0 Hypercholesterolemia Pure 414.01 Coronary Atherosclerosis [place] 782.3 Edema Office Visit 07/15/2013 3:00p [facility] Binu Bruno 332.0 Paralysis Services Of Nena Alaniz M.D. Agitans Office Visit 06/23/2013 11:00a [facility] Internal Geraldo Cruz 790.21 Impaired Fasting Kelsey Saab M.D. Glucose [place] 780.57 Unspecified Sleep Apnea 332.0 Paralysis Agitans 272.0 Hypercholesterolemia Pure Office Visit 01/23/2013 10:30a [facility] Internal Samra Alexis, 477.9 Rhinitis Medicine - N.P. Allergic Cause [place] Unspec 465.9 URI Upper Respiratory Infections Acute Unspec Sites Office Visit 01/15/2013 Maddie Bruno 332.0 Paralysis Agitans 2:45p Binu Alaniz M.D. Services Of [facility] Office Visit 08/27/2012 [facility] Internal Geraldo Cruz 553.1 Hernia Umbilical 1:00p Kelsey Saab M.D. [place] Office Visit 08/02/2012 [facility] Internal Geraldo Cruz 724.5 Backache Unspec 10:20a Kelsey Saab M.D. [place] Office Visit 07/16/2012 Maddie Bruno 332.0 Paralysis Agitans 2:45p Neurologic Josue Alaniz Services Of [facility] Office Visit 06/19/2012 [facility] Internal Geraldo Cruz 719.46 Pain Joint Lower 2:40p Kelsey Saab M.D. Leg [place] Office Visit 06/10/2012 [facility] Internal Geraldo Cruz 381.19 Otitis Media 10:40a Kelsey Saab M.D. Chronic Serous [place] Other Office Visit 05/30/2012 [facility] Nahun Holder 786.09 Dyspnea & 10:20a Cardiology Josue Clay Respiratory Abnormalities Other 426.52 Right Bundle Branch Block W/ Left Anterior Fascicular Block 794.31 Electrocardiogram (ECG) (EKG) Abnormal Office Visit 05/03/2012 11:20a [facility] Internal Geraldo Cruz 465.9 URI Upper Kelsey Saab M.D. Respiratory [place] Infections Acute Unspec Sites 382.9 Otitis Media Unspec Office Visit 04/03/2012 3:40p [facility] Internal Geraldo Cruz 726.19 Shoulder Disorders Kelsey Saab M.D. Other Spec [place] Office Visit 02/21/2012 1:20p [facility] Internal Geraldo Cruz 786.09 Dyspnea & Kelsey Saab M.D. Respiratory [place] Abnormalities Other Office Visit 01/16/2012 2:30p Mil[facility] Bruno 332.0 Paralysis Agitans Neurologic Josue Alaniz Services Of [facility] Office Visit 12/20/2011 10:00a [facility] Internal Geraldo Cruz 780.79 Malaise And Fatigue Kelsey Saab M.D. Other [place] 786.09 Dyspnea & Respiratory Abnormalities Other 600.20 Benign Localized Hyperplasia Prostate W/O Urinary Obstruct Office Visit 11/24/2011 11:15a [facility] Binu Bruno 780.93 Memory Loss Services Of [facility] Josue Alaniz 780.79 Malaise And Fatigue Other Office Visit 11/22/2011 11:30a [facility] Nahun Holder 786.05 Shortness Of Josue Clay Breath 794.31 Electrocardiogram (ECG) (EKG) Abnormal 780.79 Malaise And Fatigue Other Office Visit 11/01/2011 1:00p Test Fixture Assembler Internal Geraldo Cruz 786.05 Shortness Of Kelsey Saab M.D. Breath [place] 780.93 Memory Loss Office Visit 08/17/2011 1:40p Test Fixture Assembler Internal Geraldo EPriti 786.09 Dyspnea & Kelsey Saab M.D. Respiratory [place] Abnormalities Other Office Visit 07/17/2011 1:00p Test Fixture Assembler Internal Geraldo E. 599.0 UTI Urinary Tract Kelsey Saab M.D. Infection Site Not [place] Spec 790.21 Impaired Fasting Glucose Office Visit 07/07/2011 11:40a Test Fixture Assembler Internal Geraldo E. 780.79 Malaise And Kelsey Saab M.D. Fatigue Other [place] 784.1 Throat Pain Office Visit 06/20/2011 10:40a Test Fixture Assembler Internal Geraldo E. 780.79 Malaise And Kelsey Saab M.D. Fatigue Other [place] Office Visit 06/13/2011 1:40p Test Fixture Assembler Internal Geraldo E. 780.79 Malaise And Kelsey Saab M.D. Fatigue Other [place] Office Visit 04/19/2011 10:00a Test Fixture Assembler Internal Geraldo E. 719.46 Pain Joint Lower Kelsey Saab M.D. Leg [place] Office Visit 12/06/2010 10:00a DO Not Use Test Fixture Assembler [place] 601.1 Prostatitis AT Cuate Sparks M.D. Office Visit 11/24/2010 1:00p DO Not Use Test Fixture Assembler Geraldo E. V70.0 Examination AT Oli Saab M.D. General Medical Routine AT Health Care Facility 790.21 Impaired Fasting Glucose 477.9 Rhinitis Allergic Cause Unspec 723.1 Cervicalgia 600.20 Benign Localized Hyperplasia Prostate W/O Urinary Obstruct Office Visit 07/28/2010 4:00p DO Not Use Test Fixture Assembler Geraldo E. 726.19 Shoulder AT Oli Saab M.D. Disorders Other Spec 780.79 Malaise And Fatigue Other V03.82 Streptococcus Pneumoniae Vaccination Spec Other Office Visit 04/15/2010 9:20a DO Not Use Test Fixture Assembler Geraldo E. 465.9 URI Upper AT Oli Saab M.D. Respiratory Infections Acute Unspec Sites Office Visit 11/25/2009 3:40p DO Not Use Test Fixture Assembler Geraldo E. 604.90 Orchitis & AT Oli Saab M.D. Epididymitis Unspec Office Visit 09/09/2009 9:00a DO Not Use Test Fixture Assembler Geraldo E. V70.0 Examination General AT Oli Saab M.D. Medical Routine AT [facility] Care Facility 790.21 Impaired Fasting Glucose 600.20 Benign Localized Hyperplasia Prostate W/O Urinary Obstruct Office Visit 05/31/2009 3:20p DO Not Use Test Fixture Assembler Geraldo E. 300.02 Anxiety Disorder AT Oli Saab M.D. Generalized 796.2 Blood Pressure Reading Elevated W/O Hypertension Office Visit 05/03/2009 2:40p DO Not Use Test Fixture Assembler Geraldo E. 465.9 URI Upper AT Oli Saab M.D. Respiratory Infections Acute Unspec Sites 780.79 Malaise And Fatigue Other Office Visit 12/17/2008 11:15a DO Not Use Test Fixture Assembler Geraldo E. 465.9 URI Upper AT Oli Saab M.D. Respiratory Infections Acute Unspec Sites Office Visit 09/07/2008 9:00a [facility] Geraldo E. V05.8 Single Disease AT [facility] Josue Saab Spec Other [place] Vaccination & Inoculation V70.0 Examination General Medical Routine AT Health Care Facility 602.9 Prostate Disorder Unspec Office Visit 12/20/2007 10:15a [facility] Geraldo E. 465.9 URI Upper Assoc AT Josue Saab Respiratory [facility] Infections Acute Unspec Sites Office Visit 11/27/2007 10:30a [facility] Geraldo E. 723.1 Cervicalgia Assoc AT Josue Saab [facility] 780.52 Insomnia Unspecified Office Visit 09/05/2007 9:30a [facility] AT Geraldo Saab, 724.2 [facility] Josue 602.9 Prostate Disorder Unspec 477.9 Rhinitis Allergic Cause Unspec V70.0 Examination General Medical Routine AT Health Care Facility Office Visit 06/20/2007 3:15p [facility] Geraldo E. 465.9 URI Upper Assoc AT Josue Saab Respiratory [facility] Infections Acute Unspec Sites Office Visit 03/29/2007 9:15a [facility] Geraldo Cruz 724.2 Lumbago Assoc AT Josue Saab [facility] Plan of Treatment Future Appointment(s):07/08/2018 12:00 pm - Drew Thomas M.D. at [facility]06/18/2018 3:00 pm - Nahun Clay M.D. at [facility] Sgoduyfmbq43/30/2019 2:15 pm - Shira [place] DNP, RN, MACHINE HOOP MAKER HELPER- at Pulmonology And Sleep Services Of [facility]06/04/2018 - Drew Thomas M.D.G20 Parkinson's diseaseFollow up:Follow up in 4 weeksRecommendations:1. Wear CPAP. get new blood pressure cuff 2. For the next 2 weeks, take Sinemet 25/100 CR: 3 pills 4 times a day: monitor blood pressure and symptoms 3. Call me in 2 weeks 4. If no better, we mayadd salt/water to diet or make other medication changes Follow up in 4 [id number] Orthostatic [id number] Obstructive sleep apnea (adult) (pediatric)
--- OUTSIDE RECORDS SUMMARY | 2018-06-07 16:36 | XMS REPORT | Continuity of Care Document ---
:1945 External Reference #:[id number] Author Name Hussain Skylar Care Team Providers Name Role Phone Geraldo Saab III, MD Primary Care Physician Unavailable Payers Date Identification Numbers Payment Provider Subscriber Effective: 2009 Policy Number: [id number] Medicare Chris Wallis PayID: [id number] [address] [place] [address] Policy Number: [id number] [facility] Chris Wallis Group Number: [id number] [address] PayID: [id number] [place] [address] Advance Directives Description No Information Available Problems [...] 10/06/2014 Obstructive sleep apnea of adult Shira Lordeo DNP, RN, Active TR[employer]ILER-BC Onset: 01/22/2018 Dizziness and giddiness Drew Thomas M.D. Active Onset: 01/22/2018 Abnormal gait Drew Thomas M.D. Active Family History Description No Information Available Social History Type Date Description Comments Sex Unknown Marital Status Lives With Occupation Retired Hand Dominance Right-handed Tobacco Use Start: Unknown Never Smoked Cigarettes Cigarette Use pipe only in the past Tobacco Use Start: Unknown Quit in 1982 Smoking Status Reviewed: 04/29/18 Quit in 1982 ETOH Use Consumes 1 glass of 2 glasses, 3-4 days wine per day weekly Recreational Drug Use Denies Drug Use Tobacco Use Start: Unknown End: Patient is a former smoke for short Unknown smoker period, pipe 1982 Exercise Type/Frequency Exercises sporadically walks on occ for up to a half hr Allergies, Adverse Reactions, Alerts Date Description Reaction Status Severity Comments 03/28/2007 Plavix Bruise umaña Active 03/28/2007 Minocycline Hives Active Hives 07/17/2011 Cipro Cramps Active Medications Medication Date Status Form Strength Qnty SIG Indications Ordering Provider Sinemet CR 04/25 Active Tablets ER 25-100mg 240ta 2 tabs by bs mouth danay Thomas M.D. times a day (patient using this formulatio n while CD/LD ER 50-200 mg are on backorder) Melatonin 03/15 Active Capsules 5mg 1 cap at bedtime Josue Thomas Carbidopa-Levo 03/15 Active Tablets ER 50-200mg 120ta take 1 G20 karis dopa bs pill Rafael Thomas M.D. times a day at 6 am, 10am, 2pm and 6pm Famotidine 04/10 Active Tablets 40mg 90tab take one K21.9 Geraldo Cruz s tablet by Josue Saab mouth once daily Azilect 05/04 Active Tablets 1mg 1 tab by mouth daily Prozac 05/31 Active Capsules 20mg 90cap take one s capsule by Josue Thomas mouth once daily OTC Hemmroid 11/26 Active As needed Geraldo Cruz Cream Josue Saab Ecotrin Active Tablets DR 81mg 1 PO qd Unknown Regular Strength Flaxseed Oil Active 1000mg 1 PO two Katiana III, times per Geraldo Cruz, Tamsulosin HCL Active 0.4mg 1 po qd [...] Tablets 5mg once daily Hannah, MD Migel Sinemet ER 03/28 Hx Tablets 25-100mg 2 by mouth Ck four times Katty, - a day M.D. 04/15 Sinemet 03/27 Hx Tablets 25-100mg 240ta 2 po qid Ck Priti bs Ashley Alaniz M.D. 03/28 Trazodone HCL 1030 Hx Tablets 50mg 30tab 1 by mouth G47.33 s every Josue Thomas - night 03/14 Carbidopa-Levo 10/30 Hx Tablets ER 50-200mg 90tab take 1 G20 opher dopa s pill three Josue Thomas - times at 03/15 day at 6am, 12 at night and 6 at night Carbidopa-Levo 01/11 Hx Tablets 25-100mg 120ta 1 po four G47.33 Ck Bruno dopa bs times a Katty - saturnino Salas 01/22 Carbidopa-Levo 12/04 Hx Tablets ER 50-200mg 90tab take 1 Christopher dopa s pill roderick Thomas M.D. - mouth 01/11 times a day at 6am, 12pm and 6 pm Voltaren 07/11 Hx Gel 1% 300gm apply 2 M79.672 John Dyer, grams of [employer] - gel twice 04/09 daily the affected area. Azithromycin 05/18 Hx Tablets [...] 1-2 tab by J06.9 Geraldo Cruz s mouth Josue Saab - three 04/07 times day as needed Ropinirole HCL 05/31 Hx Tablets 1mg 4 po tid Ck Hubbard. /2015 Ashley Alaniz M.D. 11/22 Carbidopa-Levo 05/31 Hx Tablets 25-100mg 270ta 1 po 4x a Ck Bruno dopa bs Ashley Barney M.D. 12/04 Ropinirole HCL 04/21 Hx Tablets 2mg 1 tab by Geraldo Cruz mouth tid Josue Saab - 05/31 Ropinirole HCL 03/01 Hx Tablets 0.5mg 360ta 1 po tid Geraldo Cruz bs Josue Saab - 04/21 Nitrostat 12/02 Hx Tablets Sub 0.4mg 25tab one sl Geraldo Cruz s q5min up Josue Saab - to 3 doses 12/28 as needed /2016 Amantadine HCL 11/18 Hx Syrup 50mg/5ML 150ml 25 mg/2.5 Ck SPriti ml at 8 Am Katty, - and at M.D. 02/09 pt states this is on hold Carbidopa-Levo 09/24 Hx Tablets 25-100mg 270ta / tab by Ck Bruno dopa bs mouth six Katty, - times M.D. 02/09 every day Pravastatin 06/23 Hx Tablets 20mg 90tab 1 tablet 272.0 Geraldo Byrne s by mouth Josue Saab - once daily 06/11 at bedtime Amantadine HCL 10/02 Hx Syrup 50mg/5ML 350un 50 mg/5 ml Ck Bruno [facility]06 Amantadine HCL 07/16 Hx Capsules 100mg 90cap 1 by mouth Melia s every Gnadt, [employer] - morning on 09/30 hold as 08/24/14 [...] 1 po bid 599.0 Geraldo cortes/Trimethopri /2011 ferny Saab M.D. m DS - 12/19 Androderm 06/19 Hx Patches 2mg/24HR 30uni apply 1 780.79 Geraldo Cruz /2011 24HR ts patch Josue Saab - daily; 12/19 after 24 hours code f Cipro 12/06 Hx Tablets 500mg 28tab 1 po bid 601.1 [place] /2010 Ashley Boland M.D. 04/19 Septra DS 11/25 Hx Tablets 800-160mg 20tab 1 po bid 604.90 Geraldo Cruz /2009 ferny Saab M.D. - 01/12 Ibuprofen 05/03 Hx Tablets 600mg 90tab 1 po tid Geraldo Cruz /2009 s ping Saab M.D. - 04/07 Amoxicillin 12/19 Hx Tablets 500mg 30tab 1 po tid Geraldo Cruz s for 10 Josue Saab - days 01/22 Liz 06/19 Hx Tablets 180mg 30tab 1 po qd Geraldo Cruz s ping Saab M.D. - 01/05 Physical 04/03 Hx PT Geraldo Cruz Therapy evaluation Josue Saab - and 01/12 treatment for neck pains Vitamin C Hx Tablets 500mg 1 PO qd Katiana GR, /0000 Ashley Cash MD 07/16 Multivitamins / Hx Tablets 90tab 1 PO qd Unknown /0000 s - 02/20 Kenalog Hx Cream 0.1% 60GM Apply bid Barken, /0000 prn Eczema MD Javier - 12/17 Proctosol HC Hx Cream 2.5% 60gm Apply bid Barken, /0000 prn MD Javier - 12/17 Metamucil Hx Powder po with Unknown Original /0000 liquid qhs Texture - 12/02 Nystatin Hx Cream [id number] 60g topically Unknown /0000 t/GM bid prn - 01/27 Melatonin 00 Hx Capsules 5mg 1 by Unknown /0000 mouth - every 12/28 night at /2016 bedtime Prozac Hx Capsules 10mg 1 by mouth Unknown /0000 every day - 05/31 Metamucil Hx Powder 28.3% as needed Unknown /0000 - 02/09 Sinemet 00/ Hx Tablets 25-100mg 1/2 po bid Unknown /0000 - 05/31 Neupro Hx Patches 2mg/24HR apply once Unknown /0000 24HR daily at - 6 am 03/10 Aspirin Ec Low Hx Tablets DR 81mg 1 by mouth Unknown Dose /0000 every day - 03/10 Melatonin 00/ Hx Capsules 5mg 1 tablet G47.33 Unknown /0000 at bed - time 01/22 Glucosamine 00/00 Hx Capsules 1500Com 1 by mouth Unknown Chondroitin /0000 daily 1500 Complex - 03/15 Glucosamine 00/00 Hx Capsules 1500Com 1 by Unknown Chondroitin /0000 mouthd 1500 Complex - daily 03/14 Medications Administered in Office Medication Date Status Form Strength Qnty SIG Indications Ordering Provider Influenza Administered Injection Geraldo Cruz Virus Vaccine 015 Josue Saab Influenza Administered Injection Unknown Virus Vaccine 014 Immunizations CPT Code Status Date Vaccine Lot # [id number] Given 12/11/2017 Fluzone High Dose 48193 Given 01/14/2016 Fluzone High Dose 24876 Given 08/31/2014 Tdap - Tetanus/Diptheria/Acellular Pertussis [id number] 86868 Given 08/31/2014 Pneumococcal Conjugate Vaccine 13 Valent For [id number] Intramuscular Use 68733 Given 07/28/2010 Pneumonia Vaccine [id number] 18651 Given 01/14/2009 Influenza Virus 3Yrs & Over 69445 Given 09/07/2008 Zoster (Zostavax) 63763 Given 01/01/2008 Influenza Virus 3Yrs & Over 09100 Given 07/13/2004 Td (History By Patient) Vital Signs Date Vital Result Comment 04/29/2018 3:16pm Height 70 inches 5'10" Weight [...] Date Facility Test Result H/L Range Note Inr/Protime 02/10/2018 [facility] Inr 0.95 N 0.77-1.[address] [place] [address] [phone] Urinalysis Profile 02/10/2018 [facility] Urine Color Yellow [address] [place] [address] [phone] Urine Appearance Clear Urine Specific [place] 1.020 N 1.010-1.030 Urine pH 6.0 N 5-9 Urine Urobilinogen Negative Negative Urine Ketones Trace Abnormal Negative Urine Protein Negative Negative Urine Leukocytes Negative Negative Urine Blood Negative Negative * * Abnormal Negative 1 Urine Nitrite Negative Negative Urine Bilirubin Negative Negative Urine Glucose Negative Negative CBC Auto Diff 02/10/2018 [facility] White Blood 5.8 10^3/uL N 3.5-10.8 [address] [facility] [place] [address] [phone] Red Blood Count 4.67 10^6/uL N 4.00-5.40 [...] Blood Cells % 0 Laboratory test 02/10/2018 [facility] Lactic Acid 0.8 mmol/L N 0.5-2.0 2 finding [address] [place] [address] [phone] Comp Metabolic 02/10/2018 [facility] Sodium 138 mmol/L N 135- 145 Panel [address] [place] [address] [phone] Potassium 4.7 mmol/L N 3.5-5.0 Chloride 101 [...] Egfr Non- 78.7 >60 Egfr 95.2 >60 3 Laboratory test 02/10/2018 [facility] Magnesium 2.0 mg/dL N 1.9-2.7 finding [address] [place] [address] [phone] C Reactive Protein < 1.00 mg/L N <8.01 Troponin-I (TnI) 0.00 ng/mL <0.04 TSH (Thyroid Stim Horm) 1.44 mcIU/mL N 0.34-5.60 CBC Auto Diff 07/31/2017 [facility] White Blood 5.7 10^3/uL N 3.5-10.[address] [place] [address] [phone] Red Blood Count 4.22 10^6/uL N 4.0-5.4 [...] Cells % 0.1 Comp Metabolic Panel 07/31/2017 [facility] Sodium 139 mmol/L N 139-[address] [place] [address] [phone] Potassium 4.7 mmol/L N 3.5-5.0 Chloride 102 [...] Egfr Non- 92.4 >60 Egfr 118.8 >60 4 Laboratory test 07/31/2017 [facility] Magnesium 1.9 mg/dL N 1.9-2.[address] [place] [address] [phone] TSH (Thyroid Stim Horm) 1.83 mcIU/mL N 0.34-5.60 B-Type Natriuretic Peptide BNP 34 pg/mL 5 Laboratory test finding 06/21/2017 [facility] Magnesium <pending > [address] [place], [place] [id number] [phone] TSH (Thyroid Stim Horm) <pending> Laboratory test 06/21/2017 [facility] B-Type <pending> finding [address] [place] [address] Peptide BNP [phone] Laboratory test 05/02/2017 [facility] Rapid Strep Negative Negative [address] [address] [phone] Lipid Profile 04/04/2017 [facility] Triglycerides 37 mg/dL 7 (Trig/Chol/HDL) [address] [place] [address] [phone] Cholesterol 160 mg/dL 8 HDL Cholesterol 72.1 mg/dL 9 LDL Cholesterol 81 mg/dL 10 Laboratory test 04/04/2017 [facility] PSA 3.049 ng/mL 0-4.0 [address] [place] [place] [address] [phone] Urine Culture And 10/07/2016 [facility] Urine SEE RESULT 12 , Sensitivities [address] Culture BELOW 13 [place], [place] [id number] [phone] Poc Urinalysis 10/07/2016 [facility] Poc Glucose, Negative N Negative [address] [place] [address] [phone] Poc Bilirubin, Urine Negative N Negative Poc Ketone, Urine Negative N Negative Poc Specific [place], Urine 1.025 N 1.010-1.030 Poc Blood, Urine Trace-intact Abnormal Negative Poc pH, Urine 6.0 N 5-9 Poc Protein, Urine Negative N Negative Poc Urobilinogen, Urine 0.2 N Negative Poc Nitrite, Urine Negative N Negative Poc Leukocytes, Urine Trace Abnormal Negative Poc Color, Urine Yellow N Poc Clarity, Urine Slightly Cloudy N 14 Basic Metabolic Panel 04/07/2016 [facility] Sodium 139 mmol/L N 133-[address] [place] [address] [phone] Potassium 4.3 mmol/L N 3.5-5.0 Chloride 103 mmol/L N 101-111 Co2 Carbon Dioxide 31 mmol/L N 22-32 Anion Gap 5 mmol/L N 2-11 Glucose 90 mg/dL N 70-100 Blood Urea Nitrogen 17 mg/dL N 6-24 Creatinine 0.80 mg/dL N 0.67-1.17 BUN/Creatinine Ratio 21.3 High 8-20 Calcium 9.0 mg/dL N 8.6-10.3 Egfr Non- 95.3 N >60 Egfr 122.6 N >60 15 Laboratory test 04/07/2016 [facility] B-Type Natriuretic 50 pg/ mL N [address] [place] [place] [address] [phone] TSH (Thyroid Stim Horm) 1.79 mcIU/mL N 0.34-5.60 Magnesium 1.8 mg/dL Low 1.9-2.7 Lipid Profile 04/01/2016 [facility] Triglycerides 44 mg/dL N 17 (Trig/Chol/HDL) [address] [place] [address] [phone] Cholesterol 169 mg/dL N 18 HDL Cholesterol 71.6 mg/dL N 19 LDL Cholesterol 89 mg/dL N 20 Laboratory test 01/21/2016 [facility] Partial 31.6 seconds N 26.0-36.[address] [place] [address] PTT [phone] Inr/Protime 01/21/2016 [facility] Inr 0.98 N 0.89-1.[address] [place] [address] [phone] Urinalysis 01/21/2016 [facility] Urine Color Yellow N Profile [address] [place] [address] [phone] Urine Appearance Cloudy N Urine Specific [place] 1.023 N 1.010-1.030 Urine pH 5.0 N 5-9 Urine Urobilinogen Negative N Negative Urine Ketones Negative N Negative Urine Protein Negative N Negative Urine Leukocytes Negative N Negative Urine Blood Negative N Negative * * Abnormal Negative 21 Urine Nitrite Negative N Negative Urine Bilirubin Negative N Negative Urine Glucose Negative N Negative CBC Auto Diff 01/21/2016 [facility] White Blood 6.0 10^3/uL N 3.5-10.[address] [place] [address] [phone] Red Blood Count 4.41 10^6/uL N 4.0-5.4 [...] % 0 N Basic Metabolic Panel 01/21/2016 [facility] Sodium 140 mmol/L N 133-145 [address] [place] [address] [phone] Potassium 4.6 mmol/L N 3.5-5.0 Chloride 105 mmol/L N 101-111 Co2 Carbon Dioxide 31 mmol/L N 22-32 Anion Gap 4 mmol/L N 2-11 Glucose 87 mg/dL N 70-100 Blood Urea Nitrogen 20 mg/dL N 6-24 Creatinine 0.76 mg/dL N 0.67-1.17 BUN/Creatinine Ratio 26.3 High 8-20 Calcium 9.3 mg/dL N 8.6-10.3 Egfr Non- 101.1 N >60 Egfr 130.0 N >60 22 CBC Auto Diff 12/25/2015 [facility] White Blood 6.0 10^3/uL N 3.5-10.[address] [place] [address] [phone] Red Blood Count 4.45 10^6/uL N 4.0-5.4 [...] Cells % 0.1 N Laboratory test 12/25/2015 [facility] B-Type 78 pg/mL N [address] [place] [address] Peptide BNP [phone] Inr/Protime 12/25/2015 [facility] Inr 1.00 N 0.89- [address] 1.11 [place] [id number] [phone] Laboratory test 12/25/2015 [facility] Partial Thrombo 31.1 seconds N 26.0- finding [address] Time PTT 36.3 [place] [address] [phone] Lactic Acid 0.8 mmol/L N 0.5-2.0 24 Comp Metabolic Panel 12/25/2015 [facility] Sodium 137 mmol/L N 133-[address] [place] [address] [phone] Potassium 4.1 mmol/L N 3.5-5.0 Chloride 102 [...] 97.0 N >60 Egfr 124.7 N >60 25 Laboratory test 12/25/2015 [facility] Magnesium 1.8 mg/dL Low 1.9-2.[address] [place] [address] [phone] Lipase 7 U/L Low 11.0-82.0 Creatine Kinase(CK) 58 U/L N 10-223 C Reactive Protein < 1.00 mg/L N < 5.00 26 Troponin-I (TnI) 0.00 ng/mL N <0.03 27 CKMB 12/25/2015 [facility] CKMB ng/mL 2.1 ng/mL N 0.6-6.[address] [place] [address] [phone] Laboratory test 12/25/2015 [facility] TSH (Thyroid 1.77 N 0.34 -5.[address] Stim Horm) mcIU/[place] [address] [phone] Laboratory test 02/03/2015 [facility] PSA Diagnostic 2.347 N 0 -4.0 [address] ng/[place] [address] [phone] Laboratory test 12/03/2014 [facility] Troponin-I 0.00 N <0.03 29, [address] (TnI) ng/mL [place], [place] [id number] [phone] Magnesium 1.9 mg/dL N 1.9-2.7 31 Basic Metabolic Panel 12/03/2014 [facility] Sodium 139 mmol/L N 133-[address] [place] [address] [phone] Potassium 4.0 mmol/L N 3.5-5.0 Chloride 101 mmol/L N 101-111 Co2 Carbon Dioxide 34 mmol/L High 22-32 Anion Gap 4 mmol/L N 2-11 Glucose 91 mg/dL N 70-100 Blood Urea Nitrogen 16 mg/dL N 6-24 Creatinine 0.80 mg/dL N 0.67-1.17 BUN/Creatinine Ratio 20.0 N 8-20 Calcium 9.2 mg/dL N 8.6-10.3 Egfr Non- 95.8 N >60 Egfr 123.3 N >60 32 CBC Auto 09/09/2014 [facility] White Blood 4.4 10^3/uL Low 4.8 -10.[address] [place] [address] [phone] Red Blood Count 4.67 10^6/uL N 4.0-5.4 [...] Nucleated Red Blood Cells % 0 N Laboratory test 09/09/2014 [facility] B-Type 17 pg/mL N [address] [place] [address] Peptide BNP [phone] Comp Metabolic 09/09/2014 [facility] Sodium 140 mmol/L N 133- [address] [place] [address] [phone] Potassium 4.2 mmol/L N 3.5-5.0 Chloride 105 [...] 93.2 N >60 Egfr 119.8 N >60 34 Lipid Profile 09/09/2014 [facility] Triglycerides 39 mg/dL N 35 (Trig/Chol/HDL) [address] [place] [address] [phone] Cholesterol 148 mg/dL N 36 HDL Cholesterol 67.3 mg/dL N 37 LDL Cholesterol 73 mg/dL N 38 Laboratory test 09/09/2014 [facility] Creatine 61 U/L N 10- 223 39 finding [facility] Kinase(CK) [place] [address] [phone] Iron & Iron 09/09/2014 [facility] Iron 75 g/dL N 50-212 [place] [address] [phone] Unsaturated Iron Binding 260 g/dL N Total Iron Binding Capacity 335 g/dL N 250-450 % Iron Saturation 22 % N 15-55 Laboratory 09/09/2014 [facility] TSH (Thyroid Stim 1.44 N 0.34 -5.60 40 test finding [facility] Horm) ?IU/[place] [address] [phone] Lipid Profile 12/31/2013 [facility] Triglycerides 51 mg/dL N 41 (Trig/Chol/HDL [facility] ) [place] [address] [phone] Cholesterol 156 mg/dL N 42 HDL Cholesterol 73.3 mg/dL N 43 LDL Cholesterol 73 mg/dL N 44 Laboratory test finding 12/31/2013 [facility] Glucose 93 mg/dL N 70-100 [address] [place] [address] [phone] Hemoglobin A1c 5.5 % N Less than 6.0 45 Comp Metabolic Panel 12/31/2013 [facility] Sodium 139 mmol/L N 133-145 [place] [address] [phone] Potassium 4.2 mmol/L N 3.7-5.6 Chloride 105 [...] 99.0 N >60 Egfr 127.3 N >60 46 Laboratory test 06/23/2013 [facility] Hemoglobin A1c 5.4 5-7 finding Laboratory test 09/25/2012 [facility] PSA Screening 2.72 ng/mL 0-4.0 [address] [place] [address] [phone] Lipid Profile 07/05/2012 [facility] Triglycerides 43 mg/dL 40 -200 (Trig/Chol/HDL) [address] [place], [place] [address] [phone] Cholesterol 172 mg/dL Less than 200 HDL Cholesterol 70 mg/dL High 40-60 48 Cholesterol/HDL Ratio 2.5 Average 1-4.44 LDL Cholesterol 93.4 mg/dL Less Than 100 49 Laboratory test 07/05/2012 [facility] TSH (Thyroid 1.79 0.34- 5.60 [address] Stimulating miu/[place] [address] Horm) [phone] Comp Metabolic 07/05/2012 [facility] Sodium 139 mmol/L 133- 145 Panel [address] [place] [address] [phone] Potassium 4.3 mmol/L 3.5-5.0 Chloride 103 mmol/L [...] Egfr Non- 74.5 >60 Egfr 95.9 >60 51 CBC Auto Diff 07/05/2012 [facility] White Blood 5.0 10^3/uL 4.8-10.[address] [place] [address] [phone] Red Blood Count 4.50 10^6/uL 4.0-5.4 Hemoglobin [...] Blood Cells % 0 Laboratory test 07/05/2012 [facility] Creatine Kinase 76 U/L 0-200 [address] [place] [address] [phone] Laboratory test 03/27/2012 [facility] PSA Screening 2.85 0- 4.0 [address] ng/[place] [address] [phone] Laboratory test 11/24/2011 [facility] Vitamin B12 303 pg/mL 180-[address] [place] [address] [phone] TSH 1.34 MIU/ML 0.34-5.60 Laboratory test 10/26/2011 [facility] BNP Evaluatr 42.0 pg/mL 0-[address] [place] [address] [phone] Comp Metabolic 10/26/2011 [facility] Sodium 138 mmol/L 135- [address] [place] [address] [phone] Potassium 4.3 mmol/L 3.5-5.0 Chloride 105 mmol/L 101-111 Co2 (Carbon Dioxide) 28.0 mmol/L 22-32 Anion Gap 5.0 mmol/L 2-11 54 Glucose 102 mg/dL High 70-100 BUN 15 mg/dL 6-24 Creatinine 0.8 mg/dL 0.50-1.40 One Over Creatinine 1.25 BUN/Creatinine Ratio 18.8 8-20 Calcium 9.1 mg/dL 8.1-9.9 Total Protein 5.5 GM/DL Low 6.2-8.1 Albumin 3.7 GM/DL 3.2-5.2 Globulin 1.8 GM/DL Low 2-4 Albumin/Globulin Ratio 2.1 1-3 Bilirubin Total 1.3 mg/dL 0.4-1.5 55 Alkaline Phosphatase 48 U/L 39-117 Alt (SGPT) 14 U/L Low 17-63 Ast (Sgot) 16 U/L 12-42 eGFR Non- 96.7 > 60 eGFR 124.4 > 60 56 CBC With Manual 10/26/2011 [facility] White Blood 4.6 CUMM Low 4.8-10.[address] [place] [address] [phone] Red Cell Count 4.13 CUMM Low 4.6-6.2 [...] Anisocytosis SLIGHT Macrocytosis FEW Lipid Profile 10/26/2011 [facility] Triglyceride 33 mg/dL Low 40-200 (Trig/Chol/HDL) [address] [place] [address] [phone] Cholesterol 165 mg/dL Less Than 200 57 High Density Lipoprotein 68 mg/dL High 40-60 58 Cholesterol/HDL Ratio 2.43 AVERAGE 1-4.97 Low Density Lipoprotein 90 mg/dL Less Than 100 59 Laboratory 09/21/2011 [facility] PSA,Diagnostic 3.63 0-4 60 test finding [address] NG/[place] [address] [phone] Laboratory 07/17/2011 [facility] PSA,Diagnostic 13.31 High 0- 4 61 test finding [address] NG/ML [place], [place] [address] [phone] Urine Culture 07/17/2011 [facility] M --------- 62 & Sensitivi [address] ------- [place] [address] <SEE [phone] NOTE> Laboratory 07/17/2011 [facility] Hemoglobin A1c 5.5 5-7 test finding CBC Auto Diff 06/13/2011 [facility] White Blood Count 5.8 CUMM 4.8-10. [address] [place] [address] [phone] Red Cell Count 4.41 CUMM Low 4.6-6.2 [...] Basophils 0 0-0.2 Comp Metabolic Panel 06/13/2011 [facility] Sodium 140 mmol/L 135-145 [address] [place] [address] [phone] Potassium 4.8 mmol/L 3.5-5.0 Chloride 106 mmol/L 101-111 Co2 (Carbon Dioxide) 27.0 mmol/L 22-32 Anion Gap 7.0 mmol/L 2-11 63 Glucose 97 mg/dL 70-100 BUN 14 mg/dL 6-24 Creatinine 0.9 mg/dL 0.50-1.40 One Over Creatinine 1.11 BUN/Creatinine Ratio 15.6 8-20 Calcium 9.4 mg/dL 8.1-9.9 Total Protein 6.2 GM/DL 6.2-8.1 Albumin 4.1 GM/DL 3.2-5.2 Globulin 2.1 GM/DL 2-4 Albumin/Globulin Ratio 2.0 1-3 Bilirubin Total 1.7 mg/dL High 0.4-1.5 64 Alkaline Phosphatase 50 U/L 39-117 Alt (SGPT) 14 U/L Low 17-63 Ast (Sgot) 18 U/L 12-42 eGFR Non- 84.4 > 60 eGFR 108.6 > 60 65 Laboratory test 06/13/2011 [facility] Erythrocyte Sed 5 MM/HR 0-[address] [place] [address] [phone] Rheumatoid Factor < 15 IU/mL <15 66 Pattie (Antinuclear 06/13/2011 [facility] Antinuclear AB NEGATIVE Negative Antibodies) [address] [place] [address] [phone] Laboratory test 06/13/2011 [facility] C Reactive < 0.5 mg/dL Less Than finding [address] Protein 0.5 [place] [address] [phone] Thyroxine Free 0.87 ng/dL 0.61-1.24 TSH 1.33 MIU/ML 0.34-5.60 Lyme Disease Serology Negative Negative 67 Testosterone 06/13/2011 [facility] Free 6.2 Abnormal 9-30 68 Free & Total [address] Testosterone ng/[place] [address] [phone] Total Testosterone 327 ng/dL 240-950 69 Laboratory test 05/15/2011 [facility] PSA,Diagnostic 2.96 NG/ML 0-4 [address] [place] [address] [phone] Laboratory test 02/15/2011 [facility] PSA,Diagnostic 3.17 NG/ML 0-4 71 finding [address] [place] [address] [phone] Laboratory test 12/27/2010 [facility] PSA,Diagnostic 9.59 NG/ML High 0-4 72 finding [address] [place] [address] [phone] Laboratory test 12/07/2010 [facility] PSA,Diagnostic 50.49 High 0-4 73 finding [address] [facility] NG/[place] [address] [phone] Lipid Profile 09/05/2010 [facility] Triglyceride 42 mg/dL 40- 200 (Trig/Chol/HDL) [address] [place] [address] [phone] Cholesterol 176 mg/dL Less Than 200 74 High Density Lipoprotein 68 mg/dL High 40-60 75 Cholesterol/HDL Ratio 2.59 AVERAGE 1-4.97 Low Density Lipoprotein 100 mg/dL Less Than [address] Saab's Lab 09/05/2010 [facility] TSH 2.08 MIU/ML 0.34- 5.60 Panel [address] [place] [address] [phone] Comp Metabolic 09/05/2010 [facility] Sodium 138 mmol/L 135- 145 Panel [address] [place] [address] [phone] Potassium 4.4 mmol/L 3.5-5.0 Chloride 105 mmol/L 101-111 Co2 (Carbon Dioxide) 29.0 mmol/L 22-32 Anion Gap 4.0 mmol/L 2-11 77 Glucose 98 mg/dL 70-100 BUN 18 mg/dL 6-24 Creatinine 0.80 mg/dL 0.50-1.40 One Over Creatinine 1.20 BUN/Creatinine Ratio 22.5 High 8-20 Calcium 8.9 mg/dL 8.1-9.9 Total Protein 6.1 GM/DL Low 6.2-8.1 Albumin 3.9 GM/DL 3.2-5.2 Globulin 2.2 GM/DL 2-4 Albumin/Globulin Ratio 1.8 1-3 Bilirubin Total 1.2 mg/dL 0.4-1.5 78 Alkaline Phosphatase 47 U/L 39-117 Alt (SGPT) 15 U/L Low 17-63 Ast (Sgot) 19 U/L 12-42 eGFR Non- 97.0 > 60 eGFR 124.8 > 60 79 CBC Auto Diff 09/05/2010 [facility] White Blood 5.0 CUMM 4.8- 10.[address] [place] [address] [phone] Red Cell Count 4.33 CUMM Low 4.6-6.2 [...] 0-0.6 Abs Basophils 0 0-0.2 CBC With 09/01/2009 [facility] White Blood 5.4 CUMM 4.8-10.8 Electronic Diff [address] [place] [address] [phone] Red Cell Count 4.47 CUMM Low 4.6-6.2 [...] 0-0.6 Abs Basophils 0 0-0.2 Lipid Profile 09/01/2009 [facility] Triglyceride 47 mg/dL 40- 200 (Trig/Chol/HDL) [address] [place] [address] [phone] Cholesterol 170 mg/dL Less Than 200 80 High Density Lipoprotein 63 mg/dL High 40-60 81 Cholesterol/HDL Ratio 2.70 AVERAGE 1-4.97 Low Density Lipoprotein 98 mg/dL Less Than 100 82 Comp Metabolic Panel 09/01/2009 [facility] Sodium 135 mmol/L 135-[address] [place] [address] [phone] Potassium 4.7 mmol/L 3.5-5.0 Chloride 103 mmol/L 101-111 Co2 (Carbon Dioxide) 29.0 mmol/L 22-32 Anion Gap 3.0 mmol/L 2-11 83 Glucose 110 mg/dL High 70-100 84 BUN 17 mg/dL 6-24 Creatinine 1.00 mg/dL 0.50-1.40 One Over Creatinine 1.00 BUN/Creatinine Ratio 17.0 8-20 Calcium 8.6 mg/dL 8.1-9.9 85 Total Protein 5.9 GM/DL Low 6.2-8.1 Albumin 4.0 GM/DL 3.2-5.2 Globulin 1.9 GM/DL Low 2-4 Albumin/Globulin Ratio 2.1 1-3 Bilirubin Total 0.9 mg/dL 0.4-1.5 86 Alkaline Phosphatase 69 U/L 39-117 Alt (SGPT) 14 U/L Low 17-63 Ast (Sgot) 19 U/L 12-42 eGFR Non- 80.0 > 60 eGFR 96.7 > [address] Saab's 09/01/2009 [facility] TSH 1.46 0.34-5.[address] MIU/[place] [address] [phone] Laboratory 01/12/2009 [facility] PSA,Diagnostic 2.00 0-4 88, test finding 101 NG/ML [address] [place] [address] [phone] Laboratory 08/11/2008 [facility] TSH 1.07 0.34-5.60 test finding [address] MIU/[place] [address] [phone] Lipid Profile 08/11/2008 [facility] Triglyceride 24 mg/dL Low 40-200 (Trig/Chol/HDL [address] ) [place] [address] [phone] Cholesterol 176 mg/dL Less Than 200 90 High Density Lipoprotein 66 mg/dL High 40-60 91 Cholesterol/HDL Ratio 2.67 AVERAGE 1-4.97 Low Density Lipoprotein 105 mg/dL High Less Than 100 92 Comp Metabolic Panel 08/11/2008 [facility] Sodium 139 mmol/L 135-[address] [place] [address] [phone] Potassium 5.2 mmol/L High 3.5-5.0 Chloride 108 mmol/L 101-111 Co2 (Carbon Dioxide) 30.0 mmol/L 22-32 Anion Gap 1.0 mmol/L Low 2-11 93 Glucose 103 mg/dL High 70-100 94 BUN 12 mg/dL 6-24 Creatinine 0.80 mg/dL 0.50-1.40 One Over Creatinine 1.20 BUN/Creatinine Ratio 15.0 8-20 Calcium 9.3 mg/dL 8.1-9.9 95 Total Protein 5.7 GM/DL Low 6.2-8.1 Albumin 3.9 GM/DL 3.2-5.2 Globulin 1.8 GM/DL Low 2-4 Albumin/Globulin Ratio 2.2 1-3 Bilirubin Total 1.2 mg/dL 0.4-1.5 96 Alkaline Phosphatase 54 U/L 39-117 Alt (SGPT) 14 U/L Low 17-63 Ast (Sgot) 19 U/L 12-42 CBC With 08/11/2008 [facility] White Blood 4.6 CUMM Low 4.8- 10.8 Electronic Diff [address] [place] [address] [phone] Red Cell Count 4.54 CUMM Low 4.6-6.2 [...] Abs Basophils 0 0-0.2 Laboratory test 01/01/2008 [facility] PSA,Diagnostic 1.59 NG/ML 0-4 [address] [place] [address] [phone] Lipid Profile 07/10/2007 [facility] Cholesterol/HDL 2.87 1- 4.97 (Trig/Chol/HDL) [address] [place] [place] [address] [phone] Cholesterol 172 mg/dL Less Than 200 98 Triglyceride 31 mg/dL Low 40-200 High Density Lipoprotein 60 mg/dL 40-60 99 Low Density Lipoprotein 106 mg/dL High Less Than 100 100 Comp Metabolic Panel 07/10/2007 [facility] One Over Creatinine 1.[address] [place] [address] [phone] Anion Gap -3.0 mmol/L Low 2-11 101 Albumin/Globulin Ratio 1.6 1-3 Albumin 3.7 GM/DL [...] Ratio 20.0 8-20 Creatinine 0.9 mg/dL 0.5-1.4 CBC With 07/10/2007 [facility] White Blood 4.7 CUMM Low 4.8- 10.8 Electronic Diff [address] [place] [address] [phone] Abs Basophils 0 0-0.2 Abs Eosinophils 0 [...] 4.6-6.2 Redcell Distribution WDTH 14 % 10.5-15 Laboratory test 07/10/2007 [facility] PSA Screening 2.29 NG/ML 0-4 [address] [place] [address] [phone] TSH 1.46 MIU/ML 0.34-5.60 1 *Ascorbic acid is present which may interfere with detection of blood. 2 [facility] Severe Sepsis and Septic Shock Management Bundle Measure requires all lactic acids initially measuring >2.0 mmol/L be repeated. 3 Because ethnic data is not always readily [...] 15-29 5 Kidney failure <15 (or dialysis) 4 Because ethnic data is not always readily [...] 15-29 5 Kidney failure <15 (or dialysis) 5 >100 to <200 pg/mL: likely compensated congestive heart failure (CHF) 200 to 400 pg/mL: likely moderate CHF >400 pg/mL: likely moderate to severe CHF 6 [employer] Analyst: [id number] Desirable: <150 Borderline High: 150-199 High: 200-499 Very High: >500 8 Desirable: <200 Borderline High: 200-239 High: >239 9 Low: <40 Desirable: 40-60 High: >60 10 Desirable: <100 Near Optimal: 100-129 Borderline High: 130-159 High: 160-189 Very High: >189 11 Serum levels of PSA measured using the [employer] [place] DXI Hybritech immunoassay should not be interpreted as absolute evidence of the presence or absence of disease. The PSA value should be used in conjunction with other pertinent clinical diagnostic procedures. The values obtained with different assay methods or kits cannot be used interchangeably. 12 [id number] 13 SEE RESULT BELOW Name: CHRIS WALLIS JR : [address]: Amee Banuelos MD Acct: [id number] Unit: [id number] AGE: 71 Location: [facility] Re10/07/16 SEX: M Status: DEP ER SPEC: [id number] JC: 10/07/16-737 [facility] DR: Amee Banuelos MD REQ: [id number] RECD: 10/07/16 STATUS: NATANAEL ESCOBAR DR: Geraldo Saab III, MD _ SOURCE: URINE SPDESC: ORDERED: Urine Culture COMMENTS: [id number] Procedure Result Reported Site Urine Culture Final 10/08/16- 1250 ML No Growth (<1,000 CFU/mL) * ML - MAIN LAB ([facility]) . END OF REPORT * ML=Testing performed at Main Lab DEPARTMENT OF PATHOLOGY, [address] [place] [address] Jimmy Prater M.D. Director [facility] # [id number] 14 [employer] Analyst: [id number] 15 Because ethnic data is not always [...] 5 Kidney failure <15 (or dialysis) 16 >100 to <200 pg/mL: likely compensated congestive heart failure (CHF) 200 to 400 pg/mL: likely moderate CHF >400 pg/mL: likely moderate to severe CHF 17 Desirable <150 Borderline high 150-199 High 200-499 Very High >500 18 Desirable <200 Borderline high 200-239 High >239 19 Low <40 Desirable: 40-60 High: >60 20 Desirable: <100 mg/dL Near Optimal: 100-129 mg/dL Borderline High: 130-159 mg/dL High: 160-189 mg/dL Very High: >189 mg/dL 21 *Ascorbic acid is present which may interfere with detection of blood. 22 Because ethnic data is not always readily [...] 15-29 5 Kidney failure <15 (or dialysis) 23 >100 to <200 pg/mL: likely compensated congestive heart failure (CHF) 200 to 400 pg/mL: likely moderate CHF >400 pg/mL: likely moderate to severe CHF 24 [facility] Severe Sepsis and Septic Shock Management Bundle Measure requires all lactic acids initially measuring >2.0 mmol/L be repeated. 25 Because ethnic data is not always readily [...] 15-29 5 Kidney failure <15 (or dialysis) 26 Acute inflammation: >10.00 27 Reference Range and Interpretation: TnI (ng/mL) Interpretation Less Than 0.03 ng/mL Not supportive of diagnosis of NC 0.03 - 0.50 ng/mL Indeterminate: suggest serial studies if clinically indicated. Greater than 0.5 ng/mL Consistent with diagnosis of NC 28 Serum levels of PSA measured using the [employer] DXI Hybritech immunoassay should not be interpreted as absolute evidence of the presence or absence of disease. The PSA value should be used in conjunction with other pertinent clinical diagnostic procedures. The values obtained with different assay methods or kits cannot be used interchangeably. 29 CALL RESULTS TO TODAY [phone] 30 Reference Range and Interpretation: TnI (ng/mL) Interpretation Less Than 0.03 ng/mL Not supportive of diagnosis of NC 0.03 - 0.50 ng/mL Indeterminate: suggest serial studies if clinically indicated. Greater than 0.5 ng/mL Consistent with diagnosis of NC 31 CALL RESULTS TO TODAY [phone] 32 Because ethnic data is not always [...] 5 Kidney failure <15 (or dialysis) 33 >100 to <200 pg/mL: likely compensated congestive heart failure (CHF) 200 to 400 pg/mL: likely moderate CHF >400 pg/mL: likely moderate to severe CHF 34 Because ethnic data is not always readily [...] 15-29 5 Kidney failure <15 (or dialysis) 35 Desirable <150 Borderline high 150-199 High 200-499 Very High >500 36 Desirable <200 Borderline high 200-239 High >239 37 Low <40 Desirable: 40-60 High: >60 38 Desirable: <100 mg/dL Near Optimal: 100-129 mg/dL Borderline High: 130-159 mg/dL High: 160-189 mg/dL Very High: >189 mg/dL 39 FASTING 40 FASTING 41 Desirable <150 Borderline high 150-199 High 200-499 Very High >500 42 Desirable <200 Borderline high 200-239 High >239 43 Low <40 Desirable: 40-60 High: >60 44 Desirable <100 Near Optimal 100-129 Borderline high 130-159 High 160-189 Very High >189 45 Therapeutic target for the treatment of diabetes Mellitus patients is <7% HBA1C, and in selective patients <6.0%.Please refer to [place] [employer] Diabetic care guidelines for further information. 46 Because ethnic data is not always readily [...] 15-29 5 Kidney failure <15 (or dialysis) 47 Serum levels of PSA measured using the [employer] DXI Hybritech immunoassay should not be interpreted as absolute evidence of the presence or absence of disease. The PSA value should be used in conjunction with other pertinent clinical diagnostic procedures. The values obtained with different assay methods or kits cannot be used interchangeably. 48 HDL Interpretation: Undesirable: High Risk: Less than 40 MG/DL Desirable: Low Risk: Greater than 60 MG/DL 49 LDL Interpretation: Low Risk Optimal Level: LDL Less than 100 MG/DL Near or Above Optimal: LDL 100-129 MG/DL Borderline High Risk: LDL 130-159 MG/DL High Risk: LDL 160-189 MG/DL Very High Risk: LDL Greater than 189 MG/DL 50 PT IS FASTING 51 Because ethnic data is not always readily [...] 15-29 5 Kidney failure <15 (or dialysis) 52 PT IS FASTING 53 Serum levels of PSA measured using the [employer] [place] DXI Hybritech immunoassay should not be interpreted as absolute evidence of the presence or absence of disease. The PSA value should be used in conjunction with other pertinent clinical diagnostic procedures. The values obtained with different assay methods or kits cannot be used interchangeably. 54 Anion gap measurement may be of limited value in the presence of any alkalosis, especially in a combined acid base disorder. . 55 A metabolite of Naproxen, O-desmethylnaproxen, has been shown to interfere with the Jendrassik-Kevin method for measuring total bilirubin. Samples from patients who have taken Naproxen have shown spurious elevation in total bilirubin levels. 56 Because ethnic data is not always readily [...] 15-29 5 Kidney failure <15 (or dialysis) 57 CHOLESTEROL INTERPRETATION: Desirable: Less than 200 MG/DL Borderline-High Risk: 200-239 MG/DL High-Risk: 240 MG/DL and over 58 HDL INTERPRETATION: Undesirable: High Risk: Less than 40 MG/DL Desirable: Low Risk: Greater than 60 MG/DL 59 LDL INTERPRETATION: Low Risk Optimal Level: LDL Less than 100 MG/DL Near or Above Optimal: LDL 100-129 MG/DL Borderline High Risk: LDL 130-159 MG/DL High Risk: LDL 160-189 MG/DL Very High Risk: LDL Greater than 189 MG/DL 60 * SERUM LEVELS OF PSA MEASURED USING THE [facility] ACCESS HYBRITECH IMMUNOASSAY SHOULD NOT BE INTERPRETED ABSOLUTE EVIDENCE OF THE PRESENCE OR ABSENCE OF DISEASE. THE PSA VALUE SHOULD BE USED IN CONJUNCTION WITH OTHER PERTINENT CLINICAL DIAGNOSTIC PROCEDURES. The values obtained with different assay methods or kits cannot be used interchangeably. 61 * SERUM LEVELS OF PSA MEASURED USING THE [employer] ACCESS HYBRITECH IMMUNOASSAY SHOULD NOT BE INTERPRETED ABSOLUTE EVIDENCE OF THE PRESENCE OR ABSENCE OF DISEASE. THE PSA VALUE SHOULD BE USED IN CONJUNCTION WITH OTHER PERTINENT CLINICAL DIAGNOSTIC PROCEDURES. The values obtained with different assay methods or kits cannot be used interchangeably. 62 RUN DATE: 07/19/11 [facility] NMI LIVE PAGE 1 RUN TIME: 1149 Specimen Inquiry RUN USER: INTERFACE Name: CHRIS WALLIS JR Status: REG REF Re07/17/11 Age/Sex: 66/M Unit#: [id number] Location: [facility] : 45 SPEC #: [id number] JC: 07/17/11 STATUS: COMP REQ #: [id number] RECD: 07/17/11 [facility] DR[facility]: URINE ENTR: 07/17/[address]: SPDES: ORDERED: URINE C S QUERIES: MEDENT REQUISITION # [id number] ACT WKST: UR 07/19/11 #1 Procedure Result [...] *These antibiotics are not available in the [facility] Formulary. Contact the Microbiology Department for any additional antibiotic reporting. - [facility] Permit #[id number] [facility] [employer] [facility] [address] DEPARTMENT OF PATHOLOGY, [facility] [place], [place] [address] [facility] Permit #[id number] Jimmy Prater M.D. Director Michelle Nelson M.D. [employer] 63 Anion gap measurement may be of limited value in the presence of any alkalosis, especially in a combined acid base disorder. . 64 A metabolite of Naproxen, O-desmethylnaproxen, has been shown to interfere with the [place] method for measuring total bilirubin. Samples from patients who have taken Naproxen have shown spurious elevation in total bilirubin levels. 65 Because ethnic data is not always readily [...] 15-29 5 Kidney failure <15 (or dialysis) 66 Test Performed by: [facility] Dpt of Lab Med and Pathology [address] [place] [address] Instructor Dancing: Kobe Jimenez III, M.D. 67 Serologic response to B. burgdorferi infection is not detected, but cannot rule out early infection during which low or undetectable antibody levels to B. burgdorferi may be present. If clinically indicated, a new serum specimen should be submitted in 7-14 days. Test Performed by: [facility] Med and Pathology [address] [place] [address] Instructor Dancing: Kobe Jimenez III, M.D. 68 Test Performed by: [facility] Med [facility] Pathology [address] [place] [address] Instructor Dancing: Kobe Jimenez III, M.D. 69 Test Performed by: [facility] Lab Med and Pathology [address] [place] [address] Instructor Dancing: Kobe Jimenez III, M.D. 70 * SERUM LEVELS OF PSA MEASURED USING THE [facility] ACCESS HYBRITECH IMMUNOASSAY SHOULD NOT BE INTERPRETED ABSOLUTE EVIDENCE OF THE PRESENCE OR ABSENCE OF DISEASE. THE PSA VALUE SHOULD BE USED IN CONJUNCTION WITH OTHER PERTINENT CLINICAL DIAGNOSTIC PROCEDURES. The values obtained with different assay methods or kits cannot be used interchangeably. 71 * SERUM LEVELS OF PSA MEASURED USING THE [facility] ACCESS HYBRITECH IMMUNOASSAY SHOULD NOT BE INTERPRETED ABSOLUTE EVIDENCE OF THE PRESENCE OR ABSENCE OF DISEASE. THE PSA VALUE SHOULD BE USED IN CONJUNCTION WITH OTHER PERTINENT CLINICAL DIAGNOSTIC PROCEDURES. 72 * SERUM LEVELS OF PSA MEASURED USING THE [facility] ACCESS HYBRITECH IMMUNOASSAY SHOULD NOT BE INTERPRETED ABSOLUTE EVIDENCE OF THE PRESENCE OR ABSENCE OF DISEASE. THE PSA VALUE SHOULD BE USED IN CONJUNCTION WITH OTHER PERTINENT CLINICAL DIAGNOSTIC PROCEDURES. 73 * SERUM LEVELS OF PSA MEASURED USING THE [facility] ACCESS HYBRITECH IMMUNOASSAY SHOULD NOT BE INTERPRETED ABSOLUTE EVIDENCE OF THE PRESENCE OR ABSENCE OF DISEASE. THE PSA VALUE SHOULD BE USED IN CONJUNCTION WITH OTHER PERTINENT CLINICAL DIAGNOSTIC PROCEDURES. 74 CHOLESTEROL INTERPRETATION: Desirable: Less than 200 [...] Risk: LDL Greater than 189 MG/DL 77 Anion gap measurement may be of limited value in the presence of any alkalosis, especially in a combined acid base disorder. . 78 A metabolite of Naproxen, O-desmethylnaproxen, has been shown to interfere with the Jendrassik-Kevin method for measuring total bilirubin. Samples from patients who have taken Naproxen have shown spurious elevation in total bilirubin levels. 79 Because ethnic data is not always readily [...] 15-29 5 Kidney failure <15 (or dialysis) 80 CHOLESTEROL INTERPRETATION: Desirable: Less than 200 MG/DL Borderline-High Risk: 200-239 MG/DL High-Risk: 240 MG/DL and over 81 HDL INTERPRETATION: Undesirable: High Risk: Less than 40 MG/DL Desirable: Low Risk: Greater than 60 MG/DL 82 LDL INTERPRETATION: Low Risk Optimal Level: LDL Less than 100 MG/DL Near or Above Optimal: LDL 100-129 MG/DL Borderline High Risk: LDL 130-159 MG/DL High Risk: LDL 160-189 MG/DL Very High Risk: LDL Greater than 189 MG/DL 83 Anion gap measurement may be of limited value in the presence of any alkalosis, especially in a combined acid base disorder. . 84 Note change in reference range as of 11/14/07. The change was based on recommendations from the [place] [employer]. 85 Please note change in reference range effective 07 . 86 A metabolite of Naproxen, O-desmethylnaproxen, has been shown to interfere with the Jendrassik-Kevin method for measuring total bilirubin. Samples from patients who have taken Naproxen have shown spurious elevation in total bilirubin levels. 87 Because ethnic data is not always readily [...] 15-29 5 Kidney failure <15 (or dialysis) 88 PATIENT MAY HAVE RESULTS PER DOCTOR'S AUTHORIZATION. Questions regarding this report should be directed to your doctor. 89 * SERUM LEVELS OF PSA MEASURED USING THE [employer] ACCESS HYBRITECH IMMUNOASSAY SHOULD NOT BE INTERPRETED ABSOLUTE EVIDENCE OF THE PRESENCE OR ABSENCE OF DISEASE. THE PSA VALUE SHOULD BE USED IN CONJUNCTION WITH OTHER PERTINENT CLINICAL DIAGNOSTIC PROCEDURES. 90 CHOLESTEROL INTERPRETATION: Desirable: Less than 200 MG/DL Borderline-High Risk: 200-239 MG/DL High-Risk: 240 MG/DL and over 91 HDL INTERPRETATION: Undesirable: High Risk: Less than 40 MG/DL Desirable: Low Risk: Greater than 60 MG/DL 92 LDL INTERPRETATION: Low Risk Optimal Level: LDL Less than 100 MG/DL Near or Above Optimal: LDL 100-129 MG/DL Borderline High Risk: LDL 130-159 MG/DL High Risk: LDL 160-189 MG/DL Very High Risk: LDL Greater than 189 MG/DL 93 Anion gap measurement may be of limited value in the presence of any alkalosis, especially in a combined acid base disorder. . 94 Note change in reference range as of 11/14/07. The change was based on recommendations from the [place] [employer]. 95 Please note change in reference range effective 07 . 96 A metabolite of Naproxen, O-desmethylnaproxen, has been shown to interfere with the Jendrassik-Kevin method for measuring total bilirubin. Samples from patients who have taken Naproxen have shown spurious elevation in total bilirubin levels. 97 * SERUM LEVELS OF PSA MEASURED USING THE [facility] ACCESS HYBRITECH IMMUNOASSAY SHOULD NOT BE INTERPRETED ABSOLUTE EVIDENCE OF THE PRESENCE OR ABSENCE OF DISEASE. THE PSA VALUE SHOULD BE USED IN CONJUNCTION WITH OTHER PERTINENT CLINICAL DIAGNOSTIC PROCEDURES. 98 CHOLESTEROL INTERPRETATION: Desirable: Less than 200 MG/DL Borderline-High Risk: 200-239 MG/DL High-Risk: 240 MG/DL and over 99 HDL INTERPRETATION: Undesirable: High Risk: Less than 40 MG/DL Desirable: Low Risk: Greater than 60 MG/DL 100 LDL INTERPRETATION: Low Risk Optimal Level: LDL Less than 100 MG/DL Near or Above Optimal: LDL 100-129 MG/DL Borderline High Risk: LDL 130-159 MG/DL High Risk: LDL 160-189 MG/DL Very High Risk: LDL Greater than 189 MG/DL 101 Anion gap measurement may be of limited value in the presence of any alkalosis, especially in a combined acid base disorder. . 102 * SERUM LEVELS OF PSA MEASURED USING THE [employer] ACCESS HYBRITECH IMMUNOASSAY SHOULD NOT BE INTERPRETED ABSOLUTE EVIDENCE OF THE PRESENCE OR ABSENCE OF DISEASE. THE PSA VALUE SHOULD BE USED IN CONJUNCTION WITH OTHER PERTINENT CLINICAL DIAGNOSTIC PROCEDURES. Procedures Date Code Description Status 01/22/2018 73644 Neurostimulator Pulse Generator Analysis W/O Completed Reprogramming 12/19/2017 40057 EKG Tracing & Interpretation Completed 08/07/2017 44231 ECG Monitor/Recording W/Visual Superimposition Scanning Completed 07/13/2017 79898 Treadmill Interp/Report Only Completed 07/13/2017 51967 Stress Test Supervsn W/Out I/R Completed 07/10/2017 48475 ECHO Transthoracic, Real-Time 2D With Doppler And Color Completed Flow 07/10/2017 56291 ECHO Transthoracic, Real-Time 2D With Doppler And Color Completed Flow 06/21/2017 42498 EKG Tracing & Interpretation Completed 09/04/2016 [id number] Colonoscopy Completed 06/20/2016 66988 EKG Tracing & Interpretation Completed 04/07/2016 67128 EKG Tracing & Interpretation Completed 01/05/2016 93611 EKG Tracing & Interpretation Completed 04/21/2015 86434 EKG Tracing & Interpretation Completed 12/16/2014 37049 ECHO Transthoracic, Real-Time 2D With Doppler And Color Completed Flow 12/08/2014 72074 EKG Tracing & Interpretation Completed 12/04/2014 44293 Treadmill Interp/Report Only Completed 12/04/2014 60793 Stress Test Supervsn W/Out I/R Completed 09/24/2014 66623 Pulmonary Function><Bronchodil Completed 09/24/2014 57600 Diffusing Capacity Completed 09/24/2014 16958 Plethysmography Determination Lung Volumes & Per Airway Completed Resist 09/09/2014 76733 ECHO Transthoracic, Real-Time 2D With Doppler And Color Completed Flow 09/07/2014 30203 EKG Tracing & Interpretation Completed 06/18/2014 05522 Repair Hernia Inguinal > 5Yrs, Reducible Completed 06/18/2014 86852 Repair Hernia Umbilical > 5 Yrs, Reducible Completed 06/12/2014 59770 ECHO Transthoracic, Real-Time 2D With Doppler And Color Completed Flow 05/29/2014 45665 Treadmill Interp/Report Only Completed 05/29/2014 46836 Stress Test Supervsn W/Out I/R Completed 04/21/2014 48558 EKG Tracing & Interpretation Completed 09/24/2013 92820 Holter Monitoring 24 HR New Completed 09/09/2013 04638 ECHO Stress Test Incl Perf Contiuous ekg Monitoring Completed W/Phys Superv 09/05/2013 32712 ECHO Transthoracic, Real-Time 2D With Doppler And Color Completed Flow 08/08/2013 70168 EKG Tracing & Interpretation Completed 05/30/2012 66824 EKG Tracing & Interpretation Completed 11/23/2011 52927 Treadmill Interp/Report Only Completed 11/23/2011 88910 Stress Test Supervsn W/Out I/R Completed 11/22/2011 82307 ECHO Stress Test Incl Perf Contiuous ekg Monitoring Completed W/Phys Superv 11/22/2011 60726 ECHO Stress Test Incl Perf Contiuous ekg Monitoring Completed W/Phys Superv 08/24/2011 01481 Color Flow Doppler/Interp & Reprt Completed 08/24/2011 50536 Pulse Wave/Continuous-Interp.RPT Completed 08/24/2011 49917 ECHO Transthorasic Realtime 2D W Doppler & Color Flow Completed Hosp 08/17/2011 79219 EKG Tracing & Interpretation Completed 09/22/2005 [id number] Colonoscopy Completed Encounters Type Date Location Provider Dx Diagnosis Office Visit 04/29/2018 [facility] Internal Geraldo Saab, M54.5 Low back pain 3:20p Medicine - MElisabeth Rios K59.00 Constipation, unspecified R12 Heartburn Office Visit 04/16/2018 12:00p Neri Haynes [facility] [place] disease G47.33 Obstructive sleep apnea (adult) (pediatric) R42 Dizziness and giddiness R26.81 Unsteadiness on feet Office Visit 03/15/2018 1:45p Neri Haynes [facility] [place] disease G47.33 Obstructive sleep apnea (adult) (pediatric) R42 Dizziness and giddiness R26.81 Unsteadiness on feet Office Visit 01/22/2018 9:15a Neri Haynes [facility] [place] disease G47.33 Obstructive sleep apnea (adult) (pediatric) R42 Dizziness and giddiness R26.81 Unsteadiness on feet Z96.89 Presence of other specified functional implants Office Visit 12/19/2017 2:30p [facility] Nahun Holder G47.33 Obstructive sleep Josue Clay apnea (adult) (pediatric) I49.3 Ventricular premature depolarization R42 Dizziness and giddiness I49.5 Sick sinus syndrome Office Visit 10/19/2017 [facility] And Shira G47.33 Obstructive sleep 10:30a [facility] [place], RN, apnea (adult) [facility] ASHLEY-DOMINGA (pediatric) R68.84 Jaw pain Office Visit 08/21/2017 11:30a [facility] Isabel Correa, R42 Dizziness and Of Nena Contreras giddiness I49.3 Ventricular premature depolarization R94.39 Abnormal result of other cardiovascular function study R06.00 Dyspnea, unspecified Office Visit 08/15/2017 [facility] Rosaline Cruz 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 G20 Parkinson's disease 3:45p Services Of Nena Alaniz M.D. R68.84 Jaw pain Office Visit 06/21/2017 9:00a [facility] Nahun Holder G2Nguyễn Parkinson 's Of Nena Clay M.D. disease R94.39 Abnormal result of other cardiovascular function study R42 Dizziness and giddiness R06.00 Dyspnea, unspecified I49.3 Ventricular premature depolarization Office Visit 04/12/2017 Nena Cruz M26.623 Arthralgia of 11:40a Kelsey Saab M.D. bilateral [place] temporomandibular joint Office Visit 04/10/2017 Nena Cruz Z00.00 Encntr for general 1:20p Kelsey Saab M.D. adult medical exam w/o [place] abnormal findings G20 Parkinson's disease G47.30 Sleep apnea, unspecified E78.00 Pure hypercholesterolemia, unspecified N40.0 Benign prostatic hyperplasia without lower urinry tract symp M25.569 Pain in unspecified knee K21.9 Gastro-esophageal reflux disease without esophagitis Office Visit 12/29/2016 [facility] Bruno G20 Parkinson's 3:30p Clinic Josue Alaniz disease G47.30 Sleep apnea, unspecified Office Visit 07/11/2016 9:40a [facility] Internal John Dyer [employer] M79.672 Pain in left Medicine - foot [place] Office Visit 06/20/2016 10:20a [facility] Nahun Holder G20 Parkinson 's Josue Clay disease G47.30 Sleep apnea, unspecified R60.9 Edema, unspecified Office Visit 06/07/2016 3:30p [facility] G2Nguyễn [facility] Of Nena Alaniz M.D. disease Office Visit 05/18/2016 10:40a [facility] Internal Kusum Bermudez, J20.9 Acute bronchitis, Medicine - N.P. unspecified [place] J01.90 Acute sinusitis, unspecified Office Visit 05/05/2016 [facility] Shira G47.33 Obstructive sleep 11:45a [facility] [place], RN, apnea (adult) [facility]- (pediatric) Office Visit 04/07/2016 [facility] Internal Geraldo Cruz Z00.01 Encounter for 9:40a Kelsey Saab M.D. general adult [place] medical exam w abnormal findings G20 Parkinson's disease G47.30 Sleep apnea, unspecified E78.00 Pure hypercholesterolemia, unspecified N40.0 Benign prostatic hyperplasia without lower urinry tract symp R60.0 Localized edema Office Visit 03/10/2016 11:00a [facility] Internal Geraldo Cruz J06.9 Acute upper Kelsey Saab M.D. respiratory [place] infection, unspecified Office Visit 01/28/2016 9:00a [facility] Internal Maxi D17.21 Benign lipomatous Kelsey Kaiser M.D. neoplasm of skin, [place] subcu of right arm R29.6 Repeated falls R22.31 Localized swelling, mass and lump, right upper limb Office Visit 01/05/2016 [facility] Internal Geraldo Cruz Z01.810 Encounter for 11:20a Kelsey Saab M.D. preprocedural [facility] cardiovascular examination G20 Parkinson's disease G47.30 Sleep apnea, unspecified Office Visit 11/24/2015 [facility] Bruno G20 Parkinson's 9:15a Clinic Josue Alaniz disease Office Visit 06/01/2015 [facility] G20 Parkinson's 2:45p Services Of Nena Alaniz M.D. disease Office Visit 04/21/2015 [facility] Nahun Holder G20 Parkinson's 11:40a Josue Clay disease E78.0 Pure hypercholesterolemia R07.9 Chest pain, unspecified R06.00 Dyspnea, unspecified R94.31 Abnormal electrocardiogram [ECG] [EKG] Office 02/10/2015 [facility] G20 Parkinson's disease Visit 3:15p Neurologic Josue Alaniz Services Of [facility] Office 12/24/2014 [facility] Nahun Holder E78.0 Pure hypercholesterolemia Visit 2:40p Cardiology Josue Clay R07.9 Chest pain, unspecified R06.00 Dyspnea, unspecified R00.2 Palpitations Office Visit 12/03/2014 2:00p [facility] HEATHER Marquez 426.4 Right Bundle Branch Block 272.0 Hypercholesterolemia Pure 786.50 Pain Chest Unspec 427.69 Premature Beats Other Office Visit 12/02/2014 4:00p [facility] Internal Geraldo Cruz 786.50 Pain Chest Unspec Kelsey Saab M.D. [place] Office Visit 11/18/2014 2:30p [facility] Bruno 327.23 Obstructive Sleep Services Of Nena Alaniz M.D. Apnea Adult & Pediatric 332.0 Paralysis Agitans Office Visit 10/06/2014 [facility] Shira 327.23 Obstructive Sleep 10:15a [facility] Of [place], RN, Apnea Adult & [facility] Pediatric Office Visit 10/01/2014 Pulmonology And Sarah Muniz 786.09 Dyspnea & 2:45p Sleep Services Of Respiratory [facility] Abnormalities Other Office Visit 09/07/2014 [facility] Nahun Holder 786.09 Dyspnea & 3:40p Josue Clay Respiratory Abnormalities Other 794.31 Electrocardiogram (ECG) (EKG) Abnormal 426.4 Right Bundle Branch Block Office Visit 09/03/2014 1:00p Pulmonology And Josef Malik, 786.05 Shortness Of Sleep Services Of M.Jon Breath [facility] Office Visit 08/31/2014 2:40p [facility] Internal Geraldo Cruz V06.1 Diphtheria- Tetan Kelsey Saab M.D. us-Pertusis [place] Combined (DTaP) V03.82 Streptococcus Pneumoniae Vaccination Spec Other 786.05 Shortness Of Breath Office Visit 05/29/2014 11:30a [facility] Nahun Holder 550.90 Hernia Inguinal Josue Clay W/O Obstruct Or Gangrene Unilateral Unspec 272.0 Hypercholesterolemia Pure 426.4 Right Bundle Branch Block 794.31 Electrocardiogram (ECG) (EKG) Abnormal 414.01 Coronary Atherosclerosis [place] Office Visit 05/21/2014 4:00p [facility] Rosaline Cruz 550.90 Hernia Inguinal Kelsey Saab M.D. W/O Obstruct Or [place] Gangrene Unilateral Unspec Office Visit 05/07/2014 4:00p [facility] Internal Geraldo Cruz 550.90 Hernia Inguinal Kelsey Saab M.D. W/O Obstruct Or [place] Gangrene Unilateral Unspec Office Visit 04/28/2014 2:45p [facility] 332.0 Paralysis Agitans Services Of Nena Alaniz M.D. Office Visit 04/23/2014 9:20a [facility] Rosaline Cruz 465.9 URI Upper Kelsey Saab M.D. Respiratory [place] Infections Acute Unspec Sites 332.0 Paralysis Agitans Office 04/21/2014 [facility] 272.0 Hypercholesterolemia Pure Visit 3:00p Cardiology Josue Clay 794.31 Electrocardiogram (ECG) (EKG) Abnormal 426.4 Right Bundle Branch Block Office Visit 03/02/2014 [facility] Rosaline Cruz 465.9 URI Upper Respiratory 2:20p Kelsey Saab M.D. Infections Acute [place] Unspec Sites Office Visit 10/29/2013 Maddie Bruno 332.0 Paralysis Agitans 1:45p Neurologic Josue Alaniz Services Of [facility] Office Visit 08/08/2013 Maddie Holder 794.31 Electrocardiogram 3:20p Cardiology Josue Clay (ECG) (EKG) Abnormal 332.0 Paralysis Agitans 272.0 Hypercholesterolemia Pure 414.01 Coronary Atherosclerosis [place] 782.3 Edema Office Visit 07/15/2013 3:00p [facility] 332.0 Paralysis Services Of [facility] Josue Alaniz Agitans Office Visit 06/23/2013 11:00a [facility] Internal Geraldo Cruz 790.21 Impaired Fasting Kelsey Saab M.D. Glucose [place] 780.57 Unspecified Sleep Apnea 332.0 Paralysis Agitans 272.0 Hypercholesterolemia Pure Office Visit 01/23/2013 10:30a [facility] Internal Samra Alexis, 477.9 Rhinitis Medicine - N.PPriti Allergic Cause [place] Unspec 465.9 URI Upper Respiratory Infections Acute Unspec Sites Office Visit 01/15/2013 [facility] Bruno 332.0 Paralysis Agitans 2:45p Neurologic Josue Alaniz Services Of [facility] Office Visit 08/27/2012 [facility] Internal Geraldo Cruz 553.1 Hernia Umbilical 1:00p Kelsey Saab M.D. [place] Office Visit 08/02/2012 [facility] Rosaline Cruz 724.5 Backache Unspec 10:20a Kelsey Saab M.D. [place] Office Visit 07/16/2012 [facility] Bruno 332.0 Paralysis Agitans 2:45p Neurologic Josue Alaniz Services Of [facility] Office Visit 06/19/2012 [facility] Rosaline Cruz 719.46 Pain Joint Lower 2:40p Kelsey Saab M.D. Leg [place] Office Visit 06/10/2012 [facility] Internal Geraldo Cruz 381.19 Otitis Media 10:40a Kelsey Saab M.D. Chronic Serous [place] Other Office Visit 05/30/2012 Maddie Holder 786.09 Dyspnea & 10:20a Cardiology Josue Clay Respiratory Abnormalities Other 426.52 Right Bundle Branch Block W/ Left Anterior Fascicular Block 794.31 Electrocardiogram (ECG) (EKG) Abnormal Office Visit 05/03/2012 11:20a [facility] Internal Geraldo Cruz 465.9 URI Upper Kelsey Saab M.D. Respiratory [place] Infections Acute Unspec Sites 382.9 Otitis Media Unspec Office Visit 04/03/2012 3:40p [facility] Internal Geraldo Cruz 726.19 Shoulder Disorders Kelsey Saab M.D. Other Spec [place] Office Visit 02/21/2012 1:20p [facility] Internal Geraldo Cruz 786.09 Dyspnea & Kelsey Saab M.D. Respiratory [place] Abnormalities Other Office Visit 01/16/2012 2:30p [facility] Bruno 332.0 Paralysis Agitans Neurologic Josue Alaniz Services Of [facility] Office Visit 12/20/2011 10:00a [facility] Internal Geraldo Cruz 780.79 Malaise And Fatigue Kelsey Saab M.D. Other [place] 786.09 Dyspnea & Respiratory Abnormalities Other 600.20 Benign Localized Hyperplasia Prostate W/O Urinary Obstruct Office Visit 11/24/2011 11:15a [facility] Bruno 780.93 Memory Loss Services Of [facility] Josue Alaniz 780.79 Malaise And Fatigue Other Office Visit 11/22/2011 11:30a [facility] Nahun Holder 786.05 Shortness Oscar Clay M.D. Breath 794.31 Electrocardiogram (ECG) (EKG) Abnormal 780.79 Malaise And Fatigue Other Office Visit 11/01/2011 1:00p [facility] Internal Geraldo Cruz 786.05 Mina Saab M.D. Breath [place] 780.93 Memory Loss Office Visit 08/17/2011 1:40p [facility] Internal Geraldo Cruz 786.09 Dyspnea & Kelsey Saab M.D. Respiratory [place] Abnormalities Other Office Visit 07/17/2011 1:00p [facility] Internal Geraldo Cruz 599.0 UTI Urinary Tract Kelsey Saab M.D. Infection Site Not [place] Spec 790.21 Impaired Fasting Glucose Office Visit 07/07/2011 11:40a [facility] Internal Geraldo Cruz 780.79 Malaise And Kelsey Saab M.D. Fatigue Other [place] 784.1 Throat Pain Office Visit 06/20/2011 10:40a [facility] Internal Geraldo Cruz 780.79 Malaise And Kelsey Saab M.D. Fatigue Other [place] Office Visit 06/13/2011 1:40p [facility] Geraldo E. 780.79 Malaise And Kelsey Saab M.D. Fatigue Other [place] Office Visit 04/19/2011 10:00a [facility] Geraldo E. 719.46 Pain Joint Lower Kelsey Saab M.D. Leg [place] Office Visit 12/06/2010 10:00a DO Not Use [facility] [place] 601.1 Prostatitis AT Cuate Sparks M.D. Office Visit 11/24/2010 1:00p DO Not Use [facility] Geraldo E. V70.0 Examination AT Oli Saab M.D. General Medical Routine AT [facility] Care Facility 790.21 Impaired Fasting Glucose 477.9 Rhinitis Allergic Cause Unspec 723.1 Cervicalgia 600.20 Benign Localized Hyperplasia Prostate W/O Urinary Obstruct Office Visit 07/28/2010 4:00p DO Not Use [facility] Geraldo E. 726.19 Shoulder AT Oli Saab M.D. Disorders Other Spec 780.79 Malaise And Fatigue Other V03.82 Streptococcus Pneumoniae Vaccination Spec Other Office Visit 04/15/2010 9:20a DO Not Use [facility] Geraldo E. 465.9 URI Upper AT Oli Saab M.D. Respiratory Infections Acute Unspec Sites Office Visit 11/25/2009 3:40p DO Not Use [facility] [place] E. 604.90 Orchitis & AT Oli Saab M.D. Epididymitis Unspec Office Visit 09/09/2009 9:00a DO Not Use [facility] Geraldo E. V70.0 Examination General AT Oli Saab M.D. Medical Routine AT [facility] 790.21 Impaired Fasting Glucose 600.20 Benign Localized Hyperplasia Prostate W/O Urinary Obstruct Office Visit 05/31/2009 3:20p DO Not Use [facility] Geraldo E. 300.02 Anxiety Disorder AT Oli Saab M.D. Generalized 796.2 Blood Pressure Reading Elevated W/O Hypertension Office Visit 05/03/2009 2:40p DO Not Use [facility] Geraldo E. 465.9 URI Upper AT Oli Saab M.D. Respiratory Infections Acute Unspec Sites 780.79 Malaise And Fatigue Other Office Visit 12/17/2008 11:15a DO Not Use [facility] Geraldo E. 465.9 URI Upper AT [facility], M.D. Respiratory Infections Acute Unspec Sites Office Visit 09/07/2008 9:00a [facility] Geraldo E. V05.8 Single Disease AT [facility] Josue Saab Spec Other [place] Vaccination & Inoculation V70.0 Examination General Medical Routine AT Health Care Facility 602.9 Prostate Disorder Unspec Office Visit 12/20/2007 10:15a [facility] Geraldo E. 465.9 URI Upper Assoc AT Josue Saab Respiratory [facility] Infections Acute Unspec Sites Office Visit 11/27/2007 10:30a [facility] Geraldo E. 723.1 Cervicalgia Assoc AT Josue Saab [facility] 780.52 Insomnia Unspecified Office Visit 09/05/2007 9:30a [facility] AT [facility]eraldo Saab, 724.2 [facility] 602.9 Prostate Disorder Unspec 477.9 Rhinitis Allergic Cause Unspec V70.0 Examination General Medical Routine AT Health Care Facility Office Visit 06/20/2007 3:15p [facility] Geraldo EPriti 465.9 URI Upper Assoc AT Josue Saab Respiratory [facility] Infections Acute Unspec Sites Office Visit 03/29/2007 9:15a [facility] Geraldo E. 724.2 Lumbago Assoc AT Josue Saab [facility] Plan of Treatment Future Appointment(s):05/20/2018 2:00 pm - Isabel Correa NPritiPPriti at [facility]06/11/2018 12:30 pm - Drew Thomas M.D. at [facility]10/22/2018 2:15 pm - Shira Loredo DNP, RN, TRACK OILER- at [facility]04/29/2018 - Geraldo Saab M.D.M54.5 Low back painComments:New c/o persistent low back pains; check x- rays.K59.00 Constipation, unspecifiedComments:Increased constipation sx; ? causing pt's back pain sx. Check abd x-ray and Rx as indicated. Colonexam in 2017 otherwise okR12 HeartburnComments:Occ sx with Rx; ok to use OTC antacids prn, but recheck advised if breakthrough sx become more frequent
--- NOTE | 2018-06-07 17:46 | UC ---
General HPI - HPI Summary HPI Summary: Nancy 73 yo gentleman, presents with spouse, c/o R knee pain and swelling s/ p fall today. He has had 2 falls today, and approx 6 days ago he had 5 falls. This is an increase from only a few since September. No LOC. Has noted BP decreases. No new sob / cp. No new GI issues. No known issues, hx uti's in the remote past. No new h/a, vis/aud changes. Does have a DBS from 2014 ( [facility]). No recent fever / chills. Appetite ok. No new rash. Re knee pain, unable to bear weight, painful to move. Denies syncope perse, wonders if falls are related to medications. - History of Current Complaint Chief Complaint: UCLowerExtremity Stated Complaint: KNEE INJURY Time Seen by Provider: 06/07/18 17:44 Hx Obtained From: Patient, Family/Engine Dynamometer Tester Pain Intensity: 6 - Allergy/Home Medications Allergies/Adverse Reactions: Allergies Allergy/AdvReac Type Severity Reaction Status Date / Time ciprofloxacin [From Cipro] Allergy Unknown Verified 06/07/18 19:51 Reaction Details clopidogrel [From Plavix] Allergy Unknown Verified 06/07/18 19:51 Reaction Details minocycline Allergy Hives Verified 06/07/18 19:51 PMH/Surg Hx/FS Hx/Imm Hx Previously Healthy: No - see hpi and below. PK Dz - Surgical History Surgical History: Yes Surgery Procedure, Year, and Place: T/A A CHILD, 1951, [facility]. 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 WISDOM TEETH 1971,. basal cell FACE AND BACK SEVERAL TIMES IN PAST 10-15 YRS,. hernia repair inguinal + umbilical. Deep Brain Stimulation electrodes in place + pacer - Family History Known Family History: Positive: Hypertension Negative: Diabetes - Social History Alcohol Use: Occasionally Alcohol Amount: 2 glasses wine 4 days/week Substance Use Type: None Smoking Status (MU): Former Smoker Type: Pipe Amount Used/How Often: PIPE Have You Smoked in the Last Year: No When Did the Patient Quit Smoking/Using Tobacco: 1979 - Immunization History Most Recent Influenza Vaccination: 2014 Most Recent Tetanus Shot: 2014 Review of Systems All Other Systems Reviewed And Are Negative: Yes Constitutional: Positive: Fatigue Skin: Positive: Other - see hpi Eyes: Positive: Other - see hpi ENT: Positive: Other - see hpi Respiratory: Positive: Other - see hpi Cardiovascular: Positive: Other - see hpi Gastrointestinal: Positive: Other - see hpi Motor: Positive: Other - see hpi Neurovascular: Positive: Other - see hpi Musculoskeletal: Positive: Other: - see hpi Neurological: Positive: Other - see hpi Psychological: Positive: Negative Is Patient Immunocompromised?: No Physical Exam Triage Information Reviewed: Yes Appearance: Thin - sitting up in wheelchair, looks tired but NAD Vital Signs: Initial Vital Signs Temp 99.6 F 06/07/18 16:44 Pulse 71 06/07/18 16:44 Resp 18 06/07/18 16:44 BP 99/68 06/07/18 16:44 Pulse Ox 97 06/07/18 16:44 Vital Signs Reviewed: Yes Eye Exam: Normal - grossly nonfocal ENT Exam: Normal Neck: Positive: Nontender Respiratory Exam: Other - BS equal, without adventitious sounds. Respiratory: Positive: No respiratory distress Cardiovascular: Positive: RRR, Brisk Capillary Refill - ? syst murm Abdominal Exam: Normal Abdomen Description: Positive: Nontender Musculoskeletal Exam: Other - R knee ++ swelling, ecchymosis. Tender post knee. Unable to straighten knee. Distal foot warm to touch, nontender ( although reports it was tender at prior fall episode) Neurological Exam: Other - PK Dz s/sx No new deficits reported Psychological Exam: Normal - conversing easily and appropriately Skin Exam: Other - ++ ecchymosis, skin tear nondiaphoretic. Course/Dx - Course Course Of Treatment: Blood glucose 130mg / dl. Declines ekg. Imaging to be done in ED. Unable to straghten knee, as such immobilizer impractical. Laurent wrap placed (by myself) prior to leaving [facility]. I highly recommend transfer to ED (weakness, multiple falls over the past 6 days ). Mr Lynn and his carefully considered this, and express understanding and agreement. They decline EMS. - Diagnoses Provider Diagnosis: Knee injury, Weakness Discharge - Sign-Out/Discharge Documenting (check all that apply): Patient Departure All imaging exams completed and their final reports reviewed: No Studies - Discharge Plan Condition: Guarded Disposition: HOME-RECOMMEND TO ED Patient Education Materials: Weakness (ED), Knee Pain (ED) Referrals: Geraldo Saab MD [Primary Care Provider] - Additional Instructions: Please go to the Emergency Department. Call 911 if any problems in the meantime or en route. - Billing Disposition and Condition Condition: GUARDED Disposition: Home-Recommend to ED
[2018-06-07 17:59] VITALS: BP 104/72
== END 2018-06-07 18:55 | disposition home health service (06) ==
LOC: UCEAST 16:28
DX: S89.91XA Unspecified injury of right lower leg, initial encounter (principal); R53.1 Weakness; Z91.81 History of falling; Z88.1 Allergy status to other antibiotic agents; Z88.8 Allergy status to other drugs, medicaments and biological substances; Z87.891 Personal history of nicotine dependence; W19.XXXA Unspecified fall, initial encounter; Y92.9 Unspecified place or not applicable
CPT/HCPCS: 99212; G0463

== ENCOUNTER 2018-06-07 19:39 | Emergency (ER) | payer MEDICARE, BC ==
--- NOTE | 2018-06-07 20:22 | ED ---
Lower Extremity - HPI Summary HPI Summary: This patient is a 73 year old male with a chief complaint of injuries after a fall 8 hours ago. This patient has a Hx of Parkinsons disease and has been falling frequently as a result of it. He states he fell 5 times 6 days ago. He reports pain in his right knee, dizziness and lack of balance. He also reports SOB caused by dyskinesia, which he states happens often due to his medication wearing off. He is taking levadopa for his condition and has been experiencing the falls as he wore off. He states he has been able to bear weight on the injured knee. He rates the pain of his injury 7/10 in severity. - History of Current Complaint Chief Complaint: EDGeneral Stated Complaint: RT KNEE INJURY PER PT Time Seen by Provider: 06/07/18 20:04 Hx Obtained From: Patient Mechanism Of Injury: Fall From A Standing Position Onset of Pain: Hours Onset/Duration: Still Present Severity Initially: Moderate Severity Currently: Moderate Pain Intensity: 7 Pain Scale Used: 0-10 Numeric Timing: Constant Location: Is Discrete @ - Right knee Able to Bear Weight: Yes - Allergies/Home Medications Allergies/Adverse Reactions: Allergies Allergy/AdvReac Type Severity Reaction Status Date / Time ciprofloxacin [From Cipro] Allergy Unknown Verified 06/07/18 19:51 Reaction Details clopidogrel [From Plavix] Allergy Unknown Verified 06/07/18 19:51 Reaction Details minocycline Allergy Hives Verified 06/07/18 19:51 PMH/Surg Hx/FS Hx/Imm Hx Endocrine/Hematology History: Denies: Hx Diabetes, Hx Thyroid Disease Cardiovascular History: Reports: Hx Hypertension, Other Cardiovascular Problems/ Disorders - ISCHEMIC CVA Denies: Hx Angina, Hx Coronary Artery Disease, Hx Hypercholesterolemia, Hx Myocardial Infarction, Hx Valvular Heart Disease Respiratory History: Reports: Hx Sleep Apnea - current BiPAP user, compliant, Other Respiratory Problems/Disorders - SLEEP APNEA Denies: Hx Asthma, Hx Chronic Obstructive Pulmonary Disease (COPD) GI History: Reports: Other GI Disorders - FEELS FULL QUICKLY Denies: Hx Ulcer History: Reports: Hx Benign Prostatic Hyperplasia Musculoskeletal History: Reports: Hx Back Problems Denies: Other Musculoskeletal History Sensory History: Reports: Hx Contacts or Glasses - GLASSES, Hx Glaucoma - SUSPECT, Hx Hearing Aid - [facility] Opthamlomology History: Reports: Hx Contacts or Glasses - GLASSES, Hx Glaucoma - SUSPECT Neurological History: Reports: Hx Headaches, Hx Nerve Disease - EARLY [facility]IN[facility]S , 2011 Denies: Other Neuro Impairments/Disorders - Cancer History Cancer Type, Location and Year: BASAL CELL - Surgical History Surgery Procedure, Year, and Place: T/A A CHILD, 1951, [facility]. 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 WISDOM TEETH 1971,. basal cell FACE AND BACK SEVERAL TIMES IN PAST 10-15 YRS,. hernia repair inguinal + umbilical. Deep Brain Stimulation electrodes in place + pacer Hx Anesthesia Reactions: No Infectious Disease History: No Infectious Disease History: Denies: Hx Clostridium Difficile, Hx Hepatitis, Hx Human Immunodeficiency Virus (HIV), Hx of Known/Suspected MRSA, Hx Shingles, Hx Tuberculosis, Hx Known/ Suspected VRE, Hx Known/Suspected VRSA, History Other Infectious Disease, Traveled Outside the [place] in Last 30 Days - Family History Known Family History: Positive: Hypertension Negative: Diabetes - Social History Alcohol Use: Occasionally Alcohol Amount: 2 glasses wine 4 days/week Substance Use Type: Reports: None Smoking Status (MU): Former Smoker Type: Pipe Amount Used/How Often: PIPE Have You Smoked in the Last Year: No Review of Systems Positive: Shortness Of Breath Positive: Other - Right knee pain Neurological: Other - Dizziness/Loss of balance All Other Systems Reviewed And Are Negative: Yes Physical Exam - Summary Physical Exam Summary: Appearance: Well-appearing, Well-nourished, lying in bed comfortably Skin: Warm, dry, no obvious rash Eyes: sclera anicteric, no conjunctival pallor ENT: mucous membranes moist, pharynx appears normal Neck: Supple, nontender Respiratory: Clear to auscultation, no signs of respiratory distress Cardiovascular: Normal S1, S2. No murmurs. Normal distal pulses in tibial and radial bilaterally. Abdomen: Soft, nontender, normal active bowel sounds present Musculoskeletal: Normal, Strength/ROM Intact. Bruising on right knee with moderate sized effusion with no deformity. Neurological: A&Ox3, awake and alert, mentation is normal, speech is fluent and appropriate. Mild parkinsonian facies. Psychiatric: affect is normal, does not appear anxious or depressed Triage Information Reviewed: Yes Vital Signs On Initial Exam: Initial Vitals Temp Pulse Resp BP Pulse Ox 98.7 F 68 16 98/75 97 06/07/18 19:40 06/07/18 19:40 06/07/18 19:40 06/07/18 19:40 06/07/18 19:40 Vital Signs Reviewed: Yes Diagnostics - Vital Signs Vital Signs Temp Pulse Resp BP Pulse Ox 06/07/18 19:40 98.7 F 68 16 98/75 97 - Laboratory Result Diagrams: 06/07/18 20:20 06/07/18 20:20 Lab Statement: Any lab studies that have been ordered have been reviewed, and results considered in the medical decision making process. - Radiology CXR Radiology Interpretation Completed By: ED Physician Summary of Radiographic Findings: No acute process. Pending official Radiologist report. Right Knee XR Radiology Interpretation Completed By: ED Physician Summary of Radiographic Findings: No fracture. Pending official radiologist report. Lower Extremity Course/Dx - Course Assessment/Plan: This patient is a 73 year old male with a chief complaint of right knee pain after a fall 8 hours ago. His CXR showed no acute process. His knee XR showed no fracture. His labs were unremarkable. I discussed results with the patient and he reports feeling better. He is hemodynamically stable and safe for discharge. Strict return precautions given and he will otherwise follow up with his PCP. - Diagnoses Provider Diagnoses: Right knee sprain Discharge - Sign-Out/Discharge Documenting (check all that apply): Patient Departure - Discharge Patient Received Moderate/Deep Sedation with Procedure: No - Discharge Plan Condition: Stable Disposition: HOME Patient Education Materials: Knee Sprain (ED) Referrals: Danny Mir MD [Medical Doctor] - Additional Instructions: You can bear weight on the left. Ice and elevation will help with the pain and swelling. You can also take OTC pain medication like tylenol or motrin for the pain. Make an appt with Dr. Salazar for sometime in the next couple of weeks for a recheck. - Billing Disposition and Condition Condition: STABLE Disposition: Home - Attestation Statements Document Initiated by Scribe: Yes Documenting Scribe: Maxi Story Provider For Whom Jessa is Documenting (Include Credential): Heladio Helm MD Scribe Attestation: Maxi Rojas, scribed for Heladio Helm MD on 06/07/18 at 2214. Scribe Documentation Reviewed: Yes Provider Attestation: The documentation as recorded by the Maxi vasquez accurately reflects the service I personally performed and the decisions made by me, Heladio Helm MD Status of Scribe Document: Viewed
[2018-06-07 20:38] LABS: ABS Basophils 0 10^3/ul (0-0.2); ABS Eosinophils 0.1 10^3/ul (0-0.6); ABS Lymphocytes 1.5 10^3/ul (1.0-4.8); ABS Monocytes 0.7 10^3/ul (0-0.8); ABS Neutrophils 5.1 10^3/ul (1.5-7.7); ABS Nucleated RBC 0 10^3/ul; Hematocrit 40 % (36-46); Hemoglobin 13.6 g/dL (14.0-18.0); Lymphocyte % 20.7 %; Mean Corpuscular HGB Conc 34 g/dL (31-36); Mean Corpuscular Hemoglobin 34 pg (27-31); Mean Corpuscular Volume 99 fL (80-94); Mean Platelet Volume 8.7 fL (7.4-10.4); Nucleated Red Blood Cells % 0.1; Platelet Count 182 10^3/uL (150-450); Red Blood Count 4.02 10^6 /uL (4.18-5.48); Red Cell Distribution Width 13 % (10.5-15); White Blood Count 7.5 10^3/uL (3.5-10.8)
[2018-06-07 20:53] LABS: ALT < 3 U/L (7-52); AST 12 U/L (13-39); Albumin 3.8 g/dL (3.2-5.2); Albumin/Globulin Ratio 1.9 (1-3); Alkaline Phosphatase 79 U/L (34-104); Anion Gap 5 mmol/L (2-11); BUN/Creatinine Ratio 31.7 (8-20); Blood Urea Nitrogen 26 mg/dL (6-24); CO2 Carbon Dioxide 27 mmol/L (22-32); Calcium 8.7 mg/dL (8.6-10.3); Chloride 106 mmol/L (101-111); EGFR African American 111.4 (>60); EGFR Non-African American 92.1 (>60); Glucose 104 mg/dL (70-100); Potassium 4.1 mmol/L (3.5-5.0); Sodium 138 mmol/L (135-145); Total Protein 5.8 g/dL (6.4-8.9)
[2018-06-07 21:26] LABS: Urine Appearance Clear; Urine Bilirubin Negative (Negative); Urine Blood Negative (Negative); Urine Color Yellow; Urine Glucose Negative (Negative); Urine Ketones Trace (Negative); Urine Nitrite Negative (Negative); Urine Protein Negative (Negative); Urine Specific Gravity 1.026 (1.010-1.030); Urine Urobilinogen Negative (Negative)
[2018-06-07 21:45] VITALS: BP 114/72
== END 2018-06-07 21:59 | disposition home or self-care (01) ==
LOC: ED 19:39
DX: S83.91XA Sprain of unspecified site of right knee, initial encounter (principal); W19.XXXA Unspecified fall, initial encounter; Z91.81 History of falling; Y92.9 Unspecified place or not applicable; J90 Pleural effusion, not elsewhere classified; R06.02 Shortness of breath; R42 Dizziness and giddiness; R26.89 Other abnormalities of gait and mobility; I10 Essential (primary) hypertension; Z88.1 Allergy status to other antibiotic agents; Z88.8 Allergy status to other drugs, medicaments and biological substances; Z87.891 Personal history of nicotine dependence; R53.1 Weakness
CPT/HCPCS: 36415; 71046; 80053; 81003; 83605; 85025; 99282

== ENCOUNTER 2018-06-17 21:36 | Emergency (ER) | payer MEDICARE, BC ==
--- OUTSIDE RECORDS SUMMARY | 2018-06-17 22:05 | XMS REPORT | Continuity of Care Document ---
:1945 External Reference #:[id number] Author Name Heaven Pak Care Team Providers Name Role Phone Geraldo Saab III, MD Primary Care Physician Unavailable Payers Date Identification Numbers Payment Provider Subscriber Effective: 2009 Policy Number: [id number] Medicare Chris Wallis PayID: [id number] [address] [place] [address] Policy [address]: [id number] [facility] Chris Wallis Group Number: [id number] [address] PayID: [id number] [place] [address] Advance Directives Description No Information Available Problems [...] of adult Shira Loredo DNP, RN, Active [employer]- Onset: 01/22/2018 Dizziness and giddiness Drew Thomas [...] Unknown Quit in 1982 Smoking Status Reviewed: 06/12/18 Quit in 1982 ETOH Use Consumes 1 [...] Form Strength Qnty SIG Indications Ordering Provider Vesna Salcedo 06/12/2018 Active Misc S80.01xA Danny Mir MD G20 Sinemet CR 06/04/2018 Active Tablets ER 25-100mg 360tabs 3 tabs by Drew bender four Josue Thomas times a day Melatonin 03/15/2018 Active Capsules 5mg 1 cap at Christopher bedtime Josue Thomas Famotidine 04/10/2017 Active Tablets 40mg 90tabs take one K Geraldo Cruz tablet by Gopi Saab M.D. mouth once 1 daily . 9 Azilect 05/04/2016 Active Tablets 1mg 1 tab by Unknown mouth daily Prozac 06/01/2015 Active Capsules 20mg 90caps take one Christopher capsule by Josue Thomas mouth once daily Ecotrin Active Tablets DR 81mg 1 PO qd Unknown Regular Strength Flaxseed Oil Active 1000mg 1 PO two Katiana III, times per Geraldo Cruz, saturnino CASTRO Tamsulosin HCL Active 0.4mg 1 po qd Unknown Ciclopirox Active Cream 0.77% 30gm apply to Unknown Olamine penis qd as needed Triamcinolone Active Cream 0.1% apply twice Unknown Acetonide And a day until Nystatin clear as needed Magnesium Active Tablets 250mg 1 by mouth Unknown twice a day Finasteride Active Tablets 5mg once daily Migel Young MD Glucosamine Active Capsules 1500Com take one Unknown Chondroitin capsule/tabl 1500 Complex et daily by Maximum mouth Strength Miralax Active Powder 17 grams by Unknown mouth twice a day as needed Fludrocortison 05/20/2018 Hx Tablets 0.1mg 30tabs take 1 tab I Isabel S. e Acetate - by mouth 9 Foster, N.P. 06/03/2018 daily 5 . 1 Sinemet CR 04/25/2018 Hx Tablets ER 25-100mg 240tabs 2 tabs by Drew - yulia four Josue Thomas 06/04/2018 times a day (patient using this formulation while CD/LD ER 50-200 mg are on backorder) Sinemet ER 03/28/2018 Hx Tablets 25-100mg 2 by mouth Ck Ramirez four times chris Alaniz, 04/15/2018 day M.DPriti Sinemet 03/27/2018 Hx Tablets 25-100mg 240tabs 2 po qid Ck Alaniz, 03/28/2018 MElisabeth Carbidopa-Levo 03/15/2018 Hx Tablets ER 50-200mg 120tabs take 1 pill G Benitoopher dopa ER - 4 times a 2 Josue Thomas 06/03/2018 day, 6am, 0 10am, 2pm and 6pm Trazodone HCL 01/22/2018 Hx Tablets 50mg 30tabs 1 by mouth G Christopher - every night 4 Josue Thomas 03/14/2018 7 . 3 3 Carbidopa-Levo 01/22/2018 Hx Tablets ER 50-200mg 90tabs take 1 pill G Christopher dopa ER - three times 2 Josue Thomas 03/15/2018 at day at 0 6am, 12 at night and 6 at night Carbidopa-Levo 01/11/2018 Hx Tablets 25-100mg 120tabs 1 po four G Ck S. dopa - times a day 4 Katty, 01/22/2018 7 M.D. . 3 3 Carbidopa-Levo 12/04/2017 Hx Tablets ER 50-200mg 90tabs take 1 pill Christopher dopa ER - bu mouth Josue Thomas 01/11/2018 three times a day at 6am, 12pm and 6 pm Voltaren 07/11/2016 Hx Gel 1% 300gm apply 2 M John Dyer, - grams of gel 7 FLUE LINING DIPPER 04/09/2017 twice daily 9 to the . affected 6 area. 7 2 Azithromycin 05/18/2016 Hx Tablets 250mg 6tabs two tabs day Dorene Noe - one, one 2 Varn, N.P. 05/28/2016 daily till 0 gone . 9 Cheratussin ac 05/18/2016 Hx Syrup 100-10mg/ 120ml 2 teaspoons J Kusum - 5ML by mouth 2 Varn, N.P. 07/11/2016 every 4 0 hours as . needed 9 Dyazide 04/08/2016 Hx Capsules 37.5-25mg 30caps 1 by mouth Geraldo Cruz - daily 3 days Josue Saab 12/28/2016 per week Benzonatate 03/10/2016 Hx Capsules 100mg 30caps 1-2 tab by Dorene Cruz - mouth three 0 Josue Saab 04/07/2016 times a day 6 as needed . 9 Ropinirole HCL 06/01/2015 Hx Tablets 1mg 4 po tid Ck S. - Katty, 11/23/2015 MElisabeth Carbidopa-Levo 06/01/2015 Hx Tablets 25-100mg 270tabs 1 po 4x a Ck S. dopa - day Katty, 12/04/2017 Josue Ropinirole HCL 04/21/2015 Hx Tablets 2mg 1 tab by Geraldo Cruz - mouth tid Josue Saab 06/01/2015 Ropinirole HCL 03/01/2015 Hx Tablets 0.5mg 360tabs 1 po tid Geraldo Cruz - Josue Saab 04/21/2015 Nitrostat 12/02/2014 Hx Tablets Sub 0.4mg 25tabs one sl q5min Geraldo Cruz - up to 3 Josue Saab 12/28/2016 doses as needed Amantadine HCL 11/18/2014 Hx Syrup 50mg/5ML 150ml 25 mg/2.5 ml Ck Bruno - at 8 Am and Katty, 02/09/2015 at noon pt Josue states this is on hold Carbidopa-Levo 09/24/2013 Hx Tablets 25-100mg 270tabs 1/2 tab by Ck Bruno dopa - mouth six Katty, 02/09/2015 times every M.D. day Pravastatin 06/23/2013 Hx Tablets 20mg 90tabs 1 tablet by 2 Geraldo Cruz Sodium - mouth once 7 Josue Saab 06/11/2013 daily at 2 bedtime . 0 Amantadine HCL 10/02/2012 Hx Syrup 50mg/5ML 350units 50 mg/5 ml Ck Bruno - at noon Katty, 05/06/2013 M.DPriti Amantadine HCL 07/16/2012 Hx Capsules 100mg 90caps 1 by mouth Melia - every Gnheather FLUE LINING DIPPER 09/30/2014 morning on hold as of 08/24/14 Nasonex 05/30/2012 Hx Suspension 50mcg/Act 1units 2 sprays to Nahun Holder - each nostril Josue Clay 08/31/2014 twice daily prn Asmanex 30 02/21/2012 Hx Aerosol 110mcg/In 30units 1 puffs R Geraldo Cruz Metered Doses - h daily in the 0 Josue Saab 03/01/2015 evening 6 . 0 0 Sulfamethoxazo 07/17/2011 Hx Tablets 800-160mg 20tabs 1 po bid 5 Geraldo Cruz le/Trimethopri - 9 Josue Saab m DS 12/20/2011 9 . 0 Androderm 06/20/2011 Hx Patches 2mg/24HR 30units apply 1 7 Geraldo Cruz - 24HR patch daily; 8 Josue Saab 12/20/2011 replace 0 after 24 . hours code f 7 9 Cipro 12/06/2010 Hx Tablets 500mg 28tabs 1 po bid 6 Jason - 0 Pachikara, 04/19/2011 1 Josue . 1 Septra DS 11/25/2009 Hx Tablets 800-160mg 20tabs 1 po bid 6 Geraldo Cruz - 0 Josue Saab 01/12/2010 4 . 9 0 Ibuprofen 05/03/2009 Hx Tablets 600mg 90tabs 1 po tid prn Geraldo Saab M.D. 04/07/2016 Amoxicillin 12/20/2007 Hx Tablets 500mg 30tabs 1 po tid for Gerlado Cruz - 10 days Josue Saab 01/23/2008 OTC Hemmroid 11/27/2007 Hx As needed Geraldo Cruz Cream - Josue Saab 05/19/2018 Liz 06/20/2007 Hx Tablets 180mg 30tabs 1 po qd prn Geraldo Saab M.D. 01/05/2014 Physical 04/03/2007 Hx PT Geraldo Curz Therapy - evaluation Josue Saab 01/12/2010 and treatment for neck pains Vitamin C Hx Tablets 500mg 1 PO qd Ashley Saab III, 07/17/2011 Multivitamins Hx Tablets 90tabs 1 PO qd Unknown - 02/21/2012 Kenalog Hx Cream 0.1% 60GM Apply bid Neville, - prn Eczema MD Javier 12/17/2008 Proctosol HC Hx Cream 2.5% 60gm Apply bid Neville, - ping Herrera MD 12/17/2008 Cortisone Hx topical, as Unknown Cream - needed 05/19/2018 Metamucil Hx Powder po with Unknown Original - liquid qhs Texture 12/02/2014 Nystatin Hx Cream [id number] 60g topically Unknown - t/GM bid prn 01/28/[address] 100mg 1 tab by Unknown Sodium - mouth at 6pm 05/19/2018 and one at bedtime Melatonin Hx Capsules 5mg 1 by mouth Unknown - every night 12/28/2016 at bedtime Prozac Hx Capsules 10mg 1 by mouth Unknown - every day 06/01/2015 Metamucil Hx Powder 28.3% as needed Unknown - 02/09/2015 Sinemet Hx Tablets 25-100mg 1/2 po bid Unknown - 06/01/2015 Neupro Hx Patches 2mg/24HR apply once Unknown - 24HR daily at 6 03/10/2016 am Aspirin Ec Low Hx Tablets DR 81mg 1 by mouth Unknown Dose - every day 03/10/2016 Melatonin Hx Capsules 5mg 1 tablet at G Unknown - bed time 4 01/22/2018 7 . 3 3 Glucosamine Hx Capsules 1500Com 1 by mouth Unknown Chondroitin - daily 1500 Complex 03/15/2018 Glucosamine Hx Capsules 1500Com 1 by mouthd Unknown Chondroitin - daily 1500 Complex 03/14/2018 Medications Administered in Office Medication Date Status Form Strength Qnty SIG Indications Ordering Provider Influenza Administered Injection Geraldo Cruz Virus Vaccine 015 Josue Saab Influenza Administered Injection Unknown Virus Vaccine 014 Immunizations CPT Code Status Date Vaccine Lot # 13211 Given 12/11/2017 Fluzone High Dose 26856 Given 01/14/2016 Fluzone High Dose 84703 Given 08/31/2014 Tdap - Tetanus/Diptheria/Acellular Pertussis [id number] 24618 Given 08/31/2014 Pneumococcal Conjugate Vaccine 13 Valent For [id number] Intramuscular Use 10020 Given 07/28/2010 Pneumonia Vaccine [id number] 49386 Given 01/14/2009 Influenza Virus 3Yrs & Over 80745 Given 09/07/2008 Zoster (Zostavax) [id number] Given 01/01/2008 Influenza Virus 3Yrs & Over 84802 Given 07/13/2004 Td (History By Patient) Vital Signs Date Vital Result Comment 06/12/2018 1:20pm Height 70 inches 5'10" Weight 191.00 lb BP Systolic 132 mmHg BP Diastolic 78 mmHg Respiratory Rate 18 /min Body Temperature 97.7 F Pain Level 6 BMI (Body Mass Index) 27.4 kg/m2 06/04/2018 9:15am Height 70 inches 5'10" Weight [...] Date Facility Test Result H/L Range Note Laboratory test 06/07/2018 [facility] Point of Care 130 mg/dL High 70-100 [address] [place] [address] [phone] CBC Auto Diff 06/07/2018 [facility] White Blood 7.5 10^3/uL N 3.5-10.[address] [place] [address] [phone] Red Blood Count 4.02 10^6/uL Low 4.18-5.48 Hemoglobin 13.6 g/dL Low 14.0-18.0 Hematocrit 40 % N 36-46 Mean Corpuscular Volume 99 fL High 80-94 Mean Corpuscular Hemoglobin 34 pg High 27-31 Mean Corpuscular HGB Conc 34 g/dL N 31-36 Red Cell Distribution Width 13 % N 10.5-15 Platelet Count 182 10^3/uL N 150-450 Mean Platelet Volume 8.7 fL N 7.4-10.4 Abs Neutrophils 5.1 10^3/uL N 1.5-7.7 Abs Lymphocytes 1.5 10^3/uL N 1.0-4.8 Abs Monocytes 0.7 10^3/uL N 0-0.8 Abs Eosinophils 0.1 10^3/uL N 0-0.6 Abs Basophils 0 10^3/uL N 0-0.2 Abs Nucleated RBC 0 10^3/uL Granulocyte % 68.0 % Lymphocyte % 20.7 % Monocyte % 9.7 % Eosinophil % 1.0 % Basophil % 0.6 % Nucleated Red Blood Cells % 0.1 Laboratory test 06/07/2018 [facility] Lactic Acid 0.7 mmol/L N 0.5-2.0 [address] [place] [address] [phone] Comp Metabolic 06/07/2018 [facility] Sodium 138 mmol/L N 135- 145 Panel [address] [place] [address] [phone] Potassium 4.1 mmol/L N 3.5-5.0 Chloride 106 mmol/L N 101-111 Co2 Carbon Dioxide 27 mmol/L N 22-32 Anion Gap 5 mmol/L N 2-11 Glucose 104 mg/dL High 70-100 Blood Urea Nitrogen 26 mg/dL High 6-24 Creatinine 0.82 mg/dL N 0.67-1.17 BUN/Creatinine Ratio 31.7 High 8-20 Calcium 8.7 mg/dL N 8.6-10.3 Total Protein 5.8 g/dL Low 6.4-8.9 Albumin 3.8 g/dL N 3.2-5.2 Globulin 2.0 g/dL N 2-4 Albumin/Globulin Ratio 1.9 N 1-3 Total Bilirubin 0.80 mg/dL N 0.2-1.0 Alkaline Phosphatase 79 U/L N 34-104 Alt < 3 U/L Low 7-52 Ast 12 U/L Low 13-39 Egfr Non- 92.1 >60 Egfr 111.4 >60 3 Urinalysis Profile 06/07/2018 [facility] Urine Color Yellow [address] [place] [address] [phone] Urine Appearance Clear Urine Specific [place] 1.026 N 1.010-1.030 Urine pH 5.0 N 5-9 Urine Urobilinogen Negative Negative Urine Ketones Trace Abnormal Negative Urine Protein Negative Negative Urine Leukocytes Negative Negative Urine Blood Negative Negative * * Abnormal Negative 4 Urine Nitrite Negative Negative Urine Bilirubin Negative Negative Urine Glucose Negative Negative Comp Metabolic Panel 05/20/2018 [facility] Sodium 140 mmol/L N 135-145 [address] [place] [address] [phone] Potassium 4.6 mmol/L N 3.5-5.0 Chloride 104 [...] Egfr Non- 67.0 >60 Egfr 81.1 >60 5 CBC Auto Diff 05/20/2018 [facility] White Blood 6.4 10^3/uL N 3.5-10.[address] [place] [address] [phone] Red Blood Count 4.28 10^6/uL N 4.00-5.40 [...] Blood Cells % 0 Laboratory test 05/20/2018 [facility] Magnesium 2.2 mg/dL N 1.9-2.[address] [place] [address] [phone] Cortisol 8.10 g/dL 6 B-Type Natriuretic Peptide BNP 32 pg/mL <=100 Inr/Protime 02/10/2018 [facility] Inr 0.95 N 0.77-1.[address] [place] [address] [phone] Urinalysis Profile 02/10/2018 [facility] Urine Color Yellow [address] [place] [id number] [phone] Urine Appearance Clear Urine Specific [place] 1.020 N 1.010-1.030 Urine pH 6.0 N 5-9 Urine Urobilinogen Negative Negative Urine Ketones Trace Abnormal Negative Urine Protein Negative Negative Urine Leukocytes Negative Negative Urine Blood Negative Negative * * Abnormal Negative 7 Urine Nitrite Negative Negative Urine Bilirubin Negative Negative Urine Glucose Negative Negative CBC Auto Diff 02/10/2018 [facility] White Blood 5.8 10^3/uL N 3.5-10.[address] [place] [address] [phone] Red Blood Count 4.67 10^6/uL N 4.00-5.40 [...] Blood Cells % 0 Laboratory test 02/10/2018 [facility] Lactic Acid 0.8 mmol/L N 0.5-2.0 8 finding [address] [place] [address] [phone] Comp Metabolic 02/10/2018 [facility] Sodium 138 mmol/L N 135- 145 Panel [address] [place] [address] [phone] Potassium 4.7 mmol/L N 3.5-5.0 Chloride 101 [...] Egfr Non- 78.7 >60 Egfr 95.2 >60 9 Laboratory test 02/10/2018 [facility] Magnesium 2.0 mg/dL N 1.9-2.7 finding [address] [place] [address] [phone] C Reactive Protein < 1.00 mg/L N <8.01 Troponin-I (TnI) 0.00 ng/mL <0.04 TSH (Thyroid Stim Horm) 1.44 mcIU/mL N 0.34-5.60 CBC Auto Diff 07/31/2017 [facility] White Blood 5.7 10^3/uL N 3.5-10.[address] [place] [address] [phone] Red Blood Count 4.22 10^6/uL N 4.0-5.4 [...] Cells % 0.1 Comp Metabolic Panel 07/31/2017 [facility] Sodium 139 mmol/L N 139-[address] [place] [address] [phone] Potassium 4.7 mmol/L N 3.5-5.0 Chloride 102 [...] Egfr Non- 92.4 >60 Egfr 118.8 >60 10 Laboratory test 07/31/2017 [facility] Magnesium 1.9 mg/dL N 1.9-2.[address] [place] [address] [phone] TSH (Thyroid Stim Horm) 1.83 mcIU/mL N 0.34-5.60 B-Type Natriuretic Peptide BNP 34 pg/mL 11 Laboratory test finding 06/21/2017 [facility] Magnesium <pending > [address] [place] [address] [phone] TSH (Thyroid Stim Horm) <pending> Laboratory 06/21/2017 [facility] B-Type <pending> test finding [address] [address] Peptide BNP [phone] Laboratory 05/02/2017 [facility] Rapid Strep Negative Negative 12 test finding [address] [place] [address] [phone] Lipid Profile 04/04/2017 [facility] Triglycerides 37 mg/dL 13 (Trig/Chol/HDL [address] ) [place] [address] [phone] Cholesterol 160 mg/dL 14 HDL Cholesterol 72.1 mg/dL 15 LDL Cholesterol 81 mg/dL 16 Laboratory test 04/04/2017 [facility] PSA Screening 3.049 ng/mL 0-4.0 [address] [place] [address] [phone] Poc Urinalysis 10/07/2016 [facility] Poc Glucose, Negative N Negative [address] [place] [address] [phone] Poc Bilirubin, Urine Negative N Negative Poc Ketone, Urine Negative N Negative Poc Specific [place], Urine 1.025 N 1.010-1.030 Poc Blood, Urine Trace-intact Abnormal Negative Poc pH, Urine 6.0 N 5-9 Poc Protein, Urine Negative N Negative Poc Urobilinogen, Urine 0.2 N Negative Poc Nitrite, Urine Negative N Negative Poc Leukocytes, Urine Trace Abnormal Negative Poc Color, Urine Yellow N Poc Clarity, Urine Slightly Cloudy N 18 Urine Culture And 10/07/2016 [facility] Urine SEE RESULT 19 , [address] [place] [address] [phone] Basic Metabolic 04/07/2016 [facility] Sodium 139 mmol/L N 133- [address] [place] [address] [phone] Potassium 4.3 mmol/L N 3.5-5.0 Chloride 103 mmol/L N 101-111 Co2 Carbon Dioxide 31 mmol/L N 22-32 Anion Gap 5 mmol/L N 2-11 Glucose 90 mg/dL N 70-100 Blood Urea Nitrogen 17 mg/dL N 6-24 Creatinine 0.80 mg/dL N 0.67-1.17 BUN/Creatinine Ratio 21.3 High 8-20 Calcium 9.0 mg/dL N 8.6-10.3 Egfr Non- 95.3 N >60 Egfr 122.6 N >60 21 Laboratory test 04/07/2016 [facility] B-Type Natriuretic 50 pg/ mL N [address] [place] [address] [phone] TSH (Thyroid Stim Horm) 1.79 mcIU/mL N 0.34-5.60 Magnesium 1.8 mg/dL Low 1.9-2.7 Lipid Profile 04/01/2016 [facility] Triglycerides 44 mg/dL N 23 (Trig/Chol/HDL) [address] [place] [address] [phone] Cholesterol 169 mg/dL N 24 HDL Cholesterol 71.6 mg/dL N 25 LDL Cholesterol 89 mg/dL N 26 Basic Metabolic Panel 01/21/2016 [facility] Sodium 140 mmol/L N 133-[address] [place] [address] [phone] Potassium 4.6 mmol/L N 3.5-5.0 Chloride 105 mmol/L N 101-111 Co2 Carbon Dioxide 31 mmol/L N 22-32 Anion Gap 4 mmol/L N 2-11 Glucose 87 mg/dL N 70-100 Blood Urea Nitrogen 20 mg/dL N 6-24 Creatinine 0.76 mg/dL N 0.67-1.17 BUN/Creatinine Ratio 26.3 High 8-20 Calcium 9.3 mg/dL N 8.6-10.3 Egfr Non- 101.1 N >60 Egfr 130.0 N >60 27 CBC Auto Diff 01/21/2016 [facility] White Blood 6.0 10^3/uL N 3.5-10.[address] [place] [address] [phone] Red Blood Count 4.41 10^6/uL N 4.0-5.4 [...] Nucleated Red Blood Cells % 0 N Urinalysis Profile 01/21/2016 [facility] Urine Color Yellow N [address] [place] [address] [phone] Urine Appearance Cloudy N Urine Specific [place] 1.023 N 1.010-1.030 Urine pH 5.0 N 5-9 Urine Urobilinogen Negative N Negative Urine Ketones Negative N Negative Urine Protein Negative N Negative Urine Leukocytes Negative N Negative Urine Blood Negative N Negative * * Abnormal Negative 28 Urine Nitrite Negative N Negative Urine Bilirubin Negative N Negative Urine Glucose Negative N Negative Inr/Protime 01/21/2016 [facility] Inr 0.98 N 0.89-1.[address] [place] [address] [phone] Laboratory test 01/21/2016 [facility] Partial 31.6 N 26.0- 36.[address] [address] PTT [phone] Laboratory test 12/25/2015 [facility] TSH (Thyroid 1.77 N 0.34 -5.[address] Stim Horm) mcIU/[place] [address] [phone] CKMB 12/25/2015 [facility] CKMB ng/mL 2.1 ng/mL N 0.6-6.[address] [place] [address] [phone] Laboratory test 12/25/2015 [facility] Magnesium 1.8 mg/dL Low 1.9-2.[address] [place] [address] [phone] Lipase 7 U/L Low 11.0-82.0 Creatine Kinase(CK) 58 U/L N 10-223 C Reactive Protein < 1.00 mg/L N < 5.00 29 Troponin-I (TnI) 0.00 ng/mL N <0.03 30 Comp Metabolic Panel 12/25/2015 [facility] Sodium 137 mmol/L N 133-145 [place] [address] [phone] Potassium 4.1 mmol/L N 3.5-5.0 Chloride 102 [...] 97.0 N >60 Egfr 124.7 N >60 31 Laboratory test 12/25/2015 [facility] Partial 31.1 seconds N 26.0-36.[address] [place] [address] PTT [phone] Lactic Acid 0.8 mmol/L N 0.5-2.0 32 Inr/Protime 12/25/2015 [facility] Inr 1.00 N 0.89-1.[address] [place] [address] [phone] Laboratory test 12/25/2015 [facility] B-Type 78 pg/mL N [address] [place] [address] Peptide BNP [phone] CBC Auto Diff 12/25/2015 [facility] White Blood 6.0 N 3.5- 10.[address] Count 10^3/[place] [address] [phone] Red Blood Count 4.45 10^6/uL N 4.0-5.4 [...] Blood Cells % 0.1 N Laboratory test 02/03/2015 [facility] PSA Diagnostic 2.347 N 0 -4.0 [address] ng/[place] [address] [phone] Basic Metabolic 12/03/2014 [facility] Sodium 139 mmol/L N 133- 145 [address] [place] [address] [phone] Potassium 4.0 mmol/L N 3.5-5.0 Chloride 101 mmol/L N 101-111 Co2 Carbon Dioxide 34 mmol/L High 22-32 Anion Gap 4 mmol/L N 2-11 Glucose 91 mg/dL N 70-100 Blood Urea Nitrogen 16 mg/dL N 6-24 Creatinine 0.80 mg/dL N 0.67-1.17 BUN/Creatinine Ratio 20.0 N 8-20 Calcium 9.2 mg/dL N 8.6-10.3 Egfr Non- 95.8 N >60 Egfr 123.3 N >60 36 Laboratory test 12/03/2014 [facility] Troponin-I (TnI) 0.00 ng/ mL N <0.03 [address] [place] [address] [phone] Magnesium 1.9 mg/dL N 1.9-2.7 38 CBC Auto 09/09/2014 [facility] White Blood 4.4 10^3/uL Low 4.8 -10.[address] [place] [address] [phone] Red Blood Count 4.67 10^6/uL N 4.0-5.4 [...] Cells % 0 N Laboratory test 09/09/2014 [facility] B-Type 17 pg/mL N [address] [place] [address] Peptide BNP [phone] Comp Metabolic 09/09/2014 [facility] Sodium 140 mmol/L N 133- [address] [place] [address] [phone] Potassium 4.2 mmol/L N 3.5-5.0 Chloride 105 [...] 93.2 N >60 Egfr 119.8 N >60 40 Lipid Profile 09/09/2014 [facility] Triglycerides 39 mg/dL N 41 (Trig/Chol/HDL) [address] [place] [address] [phone] Cholesterol 148 mg/dL N 42 HDL Cholesterol 67.3 mg/dL N 43 LDL Cholesterol 73 mg/dL N 44 Laboratory test 09/09/2014 [facility] Creatine 61 U/L N 10- [address] Kinase(CK) [place] [address] [phone] Iron & Iron 09/09/2014 [facility] Iron 75 g/dL N 50-[address] [place] [address] [phone] Unsaturated Iron Binding 260 g/dL N Total Iron Binding Capacity 335 g/dL N 250-450 % Iron Saturation 22 % N 15-55 Laboratory test 09/09/2014 [facility] TSH (Thyroid 1.44 ?IU/mL N 0.34-5.60 [address] Stim Horm) [place] [address] [phone] Comp Metabolic 12/31/2013 [facility] Sodium 139 mmol/L N 133- 145 Panel [address] [place] [address] [phone] Potassium 4.2 mmol/L N 3.7-5.6 Chloride 105 [...] 99.0 N >60 Egfr 127.3 N >60 47 Laboratory test finding 12/31/2013 [facility] Glucose 93 mg/dL N 70-100 [address] [place] [address] [phone] Hemoglobin A1c 5.5 % N Less than 6.0 48 Lipid Profile 12/31/2013 [facility] Triglycerides 51 mg/dL N 49 (Trig/Chol/HDL) [address] [place] [address] [phone] Cholesterol 156 mg/dL N 50 HDL Cholesterol 73.3 mg/dL N 51 LDL Cholesterol 73 mg/dL N 52 Laboratory test 06/23/2013 [facility] Hemoglobin A1c 5.4 5-7 finding Laboratory test 09/25/2012 [facility] PSA Screening 2.72 ng/mL 0-4.0 53 finding [address] [place] [address] [phone] Laboratory test 07/05/2012 [facility] TSH (Thyroid 1.79 0.34- 5.60 [address] Stimulating Horm) miu/[place] [address] [phone] CBC Auto Diff 07/05/2012 [facility] White Blood Count 5.0 4.8 -10.8 [address] [facility] 10^3/[place] [address] [phone] Red Blood Count 4.50 10^6/uL 4.0-5.4 Hemoglobin [...] Blood Cells % 0 Laboratory test 07/05/2012 [facility] Creatine Kinase 76 U/L 0-200 55 finding [address] [place] [address] [phone] Lipid Profile 07/05/2012 [facility] Triglycerides 43 mg/dL 40 -200 (Trig/Chol/HDL) [address] [place] [address] [phone] Cholesterol 172 mg/dL Less than 200 HDL Cholesterol 70 mg/dL High 40-60 56 Cholesterol/HDL Ratio 2.5 Average 1-4.44 LDL Cholesterol 93.4 mg/dL Less Than 100 57 Comp Metabolic Panel 07/05/2012 [facility] Sodium 139 mmol/L 133-145 [address] [place] [address] [phone] Potassium 4.3 mmol/L 3.5-5.0 Chloride 103 mmol/L [...] Egfr Non- 74.5 >60 Egfr 95.9 >60 58 Laboratory test 03/27/2012 [facility] PSA Screening 2.85 ng/mL 0-4.0 59 finding [address] [place] [address] [phone] Laboratory test 11/24/2011 [facility] Vitamin B12 303 pg/mL [phone] finding [address] [place] [address] [phone] TSH 1.34 MIU/ML 0.34-5.60 Laboratory test 10/26/2011 [facility] BNP Evaluatr 42.0 pg/mL 0-100 finding [address] [place] [address] [phone] Comp Metabolic 10/26/2011 [facility] Sodium 138 mmol/L 135- 145 Panel [address] [place] [address] [phone] Potassium 4.3 mmol/L 3.5-5.0 Chloride 105 mmol/L 101-111 Co2 (Carbon Dioxide) 28.0 mmol/L 22-32 Anion Gap 5.0 mmol/L 2-11 60 Glucose 102 mg/dL High 70-100 BUN 15 mg/dL 6-24 Creatinine 0.8 mg/dL 0.50-1.40 One Over Creatinine 1.25 BUN/Creatinine Ratio 18.8 8-20 Calcium 9.1 mg/dL 8.1-9.9 Total Protein 5.5 GM/DL Low 6.2-8.1 Albumin 3.7 GM/DL 3.2-5.2 Globulin 1.8 GM/DL Low 2-4 Albumin/Globulin Ratio 2.1 1-3 Bilirubin Total 1.3 mg/dL 0.4-1.5 61 Alkaline Phosphatase 48 U/L 39-117 Alt (SGPT) 14 U/L Low 17-63 Ast (Sgot) 16 U/L 12-42 eGFR Non- 96.7 > 60 eGFR 124.4 > 60 62 CBC With Manual 10/26/2011 [facility] White Blood 4.6 CUMM Low 4.8-10.[address] [place] [address] [phone] Red Cell Count 4.13 CUMM Low 4.6-6.2 [...] Anisocytosis SLIGHT Macrocytosis FEW Lipid Profile 10/26/2011 [facility] Triglyceride 33 mg/dL Low 40-200 (Trig/Chol/HDL) [address] [place] [address] [phone] Cholesterol 165 mg/dL Less Than 200 63 High Density Lipoprotein 68 mg/dL High 40-60 64 Cholesterol/HDL Ratio 2.43 AVERAGE 1-4.97 Low Density Lipoprotein 90 mg/dL Less Than 100 65 Laboratory 09/21/2011 [facility] PSA,Diagnostic 3.63 0-4 66 test finding [address] NG/[place] [address] [phone] Laboratory 07/17/2011 [facility] PSA,Diagnostic 13.31 High 0- 4 67 test finding [address] NG/[place] [address] [phone] Urine Culture 07/17/2011 [facility] M --------- 68 & Sensitivi [address] ------- [place] [address] <SEE [phone] NOTE> Laboratory 07/17/2011 [facility] Hemoglobin A1c 5.5 5-7 test finding CBC Auto Diff 06/13/2011 [facility] White Blood Count 5.8 CUMM 4.8-10. [address] [place] [address] [phone] Red Cell Count 4.41 CUMM Low 4.6-6.2 [...] Basophils 0 0-0.2 Comp Metabolic Panel 06/13/2011 [facility] Sodium 140 mmol/L 135-[address] [place] [address] [phone] Potassium 4.8 mmol/L 3.5-5.0 Chloride 106 mmol/L 101-111 Co2 (Carbon Dioxide) 27.0 mmol/L 22-32 Anion Gap 7.0 mmol/L 2-11 69 Glucose 97 mg/dL 70-100 BUN 14 mg/dL 6-24 Creatinine 0.9 mg/dL 0.50-1.40 One Over Creatinine 1.11 BUN/Creatinine Ratio 15.6 8-20 Calcium 9.4 mg/dL 8.1-9.9 Total Protein 6.2 GM/DL 6.2-8.1 Albumin 4.1 GM/DL 3.2-5.2 Globulin 2.1 GM/DL 2-4 Albumin/Globulin Ratio 2.0 1-3 Bilirubin Total 1.7 mg/dL High 0.4-1.5 70 Alkaline Phosphatase 50 U/L 39-117 Alt (SGPT) 14 U/L Low 17-63 Ast (Sgot) 18 U/L 12-42 eGFR Non- 84.4 > 60 eGFR 108.6 > 60 71 Laboratory test 06/13/2011 [facility] Erythrocyte Sed 5 MM/HR 0-[address] [place] [address] [phone] Rheumatoid Factor < 15 IU/mL <15 72 Pattie (Antinuclear 06/13/2011 [facility] Antinuclear AB NEGATIVE Negative Antibodies) [address] [place], [place] [address] [phone] Laboratory test 06/13/2011 [facility] C Reactive < 0.5 mg/dL Less Than finding [address] Protein 0.5 [place], [place] [id number] [phone] Thyroxine Free 0.87 ng/dL 0.61-1.24 TSH 1.33 MIU/ML 0.34-5.60 Lyme Disease Serology Negative Negative 73 Testosterone 06/13/2011 [facility] Free 6.2 Abnormal 9-30 74 Free & Total [address] Testosterone ng/dL [place], [place] [address] [phone] Total Testosterone 327 ng/dL 240-950 75 Laboratory 05/15/2011 [facility] PSA,Diagnostic 2.96 0-4 76 test finding [address] NG/ML [place], [place] [address] [phone] Laboratory 02/15/2011 [facility] PSA,Diagnostic 3.17 0-4 77 test finding [address] NG/ML [place], [place] [address] [phone] Laboratory 12/27/2010 [facility] PSA,Diagnostic 9.59 High 0-4 78 test finding [address] NG/[place] [address] [phone] Laboratory 12/07/2010 [facility] PSA,Diagnostic 50.49 High 0- 4 79 test finding [address] NG/[place] [address] [phone] DR Saab's 09/05/2010 [facility] TSH 2.08 0.34-5. Lab Panel [address] MIU/ML 60 [place], [place] [id number] [phone] CBC Auto Diff 09/05/2010 [facility] White Blood Count 5.0 CUMM 4.8-10. [address] [place] [address] [phone] Red Cell Count 4.33 CUMM Low 4.6-6.2 [...] 0-0.6 Abs Basophils 0 0-0.2 Lipid Profile 09/05/2010 [facility] Triglyceride 42 mg/dL 40- 200 (Trig/Chol/HDL) [address] [place] [address] [phone] Cholesterol 176 mg/dL Less Than 200 80 High Density Lipoprotein 68 mg/dL High 40-60 81 Cholesterol/HDL Ratio 2.59 AVERAGE 1-4.97 Low Density Lipoprotein 100 mg/dL Less Than 100 82 Comp Metabolic Panel 09/05/2010 [facility] Sodium 138 mmol/L 135-145 [address] [place] [address] [phone] Potassium 4.4 mmol/L 3.5-5.0 Chloride 105 mmol/L 101-111 Co2 (Carbon Dioxide) 29.0 mmol/L 22-32 Anion Gap 4.0 mmol/L 2-11 83 Glucose 98 mg/dL 70-100 BUN 18 mg/dL 6-24 Creatinine 0.80 mg/dL 0.50-1.40 One Over Creatinine 1.20 BUN/Creatinine Ratio 22.5 High 8-20 Calcium 8.9 mg/dL 8.1-9.9 Total Protein 6.1 GM/DL Low 6.2-8.1 Albumin 3.9 GM/DL 3.2-5.2 Globulin 2.2 GM/DL 2-4 Albumin/Globulin Ratio 1.8 1-3 Bilirubin Total 1.2 mg/dL 0.4-1.5 84 Alkaline Phosphatase 47 U/L 39-117 Alt (SGPT) 15 U/L Low 17-63 Ast (Sgot) 19 U/L 12-42 eGFR Non- 97.0 > 60 eGFR 124.8 > 60 85 CBC With 09/01/2009 [facility] White Blood 5.4 CUMM 4.8-10.8 Electronic Diff [address] [place] [address] [phone] Red Cell Count 4.47 CUMM Low 4.6-6.2 [...] Abs Basophils 0 0-0.2 Lipid Profile 09/01/2009 [facility] Triglyceride 47 mg/dL 40- 200 (Trig/Chol/HDL) [address] [place] [address] [phone] Cholesterol 170 mg/dL Less Than 200 86 High Density Lipoprotein 63 mg/dL High 40-60 87 Cholesterol/HDL Ratio 2.70 AVERAGE 1-4.97 Low Density Lipoprotein 98 mg/dL Less Than 100 88 Comp Metabolic Panel 09/01/2009 [facility] Sodium 135 mmol/L 135-[address] [place] [address] [phone] Potassium 4.7 mmol/L 3.5-5.0 Chloride 103 mmol/L 101-111 Co2 (Carbon Dioxide) 29.0 mmol/L 22-32 Anion Gap 3.0 mmol/L 2-11 89 Glucose 110 mg/dL High 70-100 90 BUN 17 mg/dL 6-24 Creatinine 1.00 mg/dL 0.50-1.40 One Over Creatinine 1.00 BUN/Creatinine Ratio 17.0 8-20 Calcium 8.6 mg/dL 8.1-9.9 91 Total Protein 5.9 GM/DL Low 6.2-8.1 Albumin 4.0 GM/DL 3.2-5.2 Globulin 1.9 GM/DL Low 2-4 Albumin/Globulin Ratio 2.1 1-3 Bilirubin Total 0.9 mg/dL 0.4-1.5 92 Alkaline Phosphatase 69 U/L 39-117 Alt (SGPT) 14 U/L Low 17-63 Ast (Sgot) 19 U/L 12-42 eGFR Non- 80.0 > 60 eGFR 96.7 > [address] Saab's Lab 09/01/2009 [facility] TSH 1.46 0.34-5.[address] MIU/[place] [address] [phone] Laboratory test 01/12/2009 [facility] PSA,Diagno 2.00 NG/ML 0 -4 94, [address] st[address] [place], [place] [address] [phone] CBC With 08/11/2008 [facility] White 4.6 CUMM Low 4.8-10.8 Electronic Diff [address] [place] [address] Count [phone] Red Cell Count 4.54 CUMM Low 4.6-6.2 [...] Basophils 0 0-0.2 Comp Metabolic Panel 08/11/2008 [facility] Sodium 139 mmol/L 135-[address] [place] [address] [phone] Potassium 5.2 mmol/L High 3.5-5.0 Chloride 108 mmol/L 101-111 Co2 (Carbon Dioxide) 30.0 mmol/L 22-32 Anion Gap 1.0 mmol/L Low 2-11 96 Glucose 103 mg/dL High 70-100 97 BUN 12 mg/dL 6-24 Creatinine 0.80 mg/dL 0.50-1.40 One Over Creatinine 1.20 BUN/Creatinine Ratio 15.0 8-20 Calcium 9.3 mg/dL 8.1-9.9 98 Total Protein 5.7 GM/DL Low 6.2-8.1 Albumin 3.9 GM/DL 3.2-5.2 Globulin 1.8 GM/DL Low 2-4 Albumin/Globulin Ratio 2.2 1-3 Bilirubin Total 1.2 mg/dL 0.4-1.5 99 Alkaline Phosphatase 54 U/L 39-117 Alt (SGPT) 14 U/L Low 17-63 Ast (Sgot) 19 U/L 12-42 Lipid Profile 08/11/2008 [facility] Triglyceride 24 mg/dL Low 40-200 (Trig/Chol/HDL) [address] [place] [address] [phone] Cholesterol 176 mg/dL Less Than 200 100 High Density Lipoprotein 66 mg/dL High 40-60 101 Cholesterol/HDL Ratio 2.67 AVERAGE 1-4.97 Low Density Lipoprotein 105 mg/dL High Less Than 100 102 Laboratory test 08/11/2008 [facility] TSH 1.07 0.34-5.[address] MIU/[place] [address] [phone] Laboratory test 01/01/2008 [facility] PSA,Diagnostic 1.59 NG/ML 0-4 [address] [place], [place] [address] [phone] Comp Metabolic 07/10/2007 [facility] One Over 1.[address] [place] [address] [phone] Anion Gap -3.0 mmol/L Low 2-11 104 Albumin/Globulin Ratio 1.6 1-3 Albumin 3.7 GM/DL [...] Creatinine 0.9 mg/dL 0.5-1.4 Lipid Profile 07/10/2007 [facility] Cholesterol/HDL 2.87 1- 4.97 (Trig/Chol/HDL) [address] [place] [address] [phone] Cholesterol 172 mg/dL Less Than 200 105 Triglyceride 31 mg/dL Low 40-200 High Density Lipoprotein 60 mg/dL 40-60 106 Low Density Lipoprotein 106 mg/dL High Less Than 100 107 Laboratory test 07/10/2007 [facility] PSA Screening 2.29 NG/ML 0-4 [address] [place] [address] [phone] TSH 1.46 MIU/ML 0.34-5.60 CBC With 07/10/2007 [facility] White Blood 4.7 CUMM Low 4.8- 10.8 Electronic Diff [address] [place] [address] [phone] Abs Basophils 0 0-0.2 Abs Eosinophils 0 [...] 4.6-6.2 Redcell Distribution WDTH 14 % 10.5-15 1 Drain Cleaner: [id number] [facility] Severe Sepsis and Septic Shock Management [...] 5 Kidney failure <15 (or dialysis) 4 *Ascorbic acid is present which may interfere with detection of blood. 5 Because ethnic data is not always [...] 5 Kidney failure <15 (or dialysis) 6 AM 8.7-22.4 PM <10 7 *Ascorbic acid is present which may interfere with detection of blood. 8 [facility] Severe Sepsis and Septic Shock Management Bundle Measure requires all lactic acids initially measuring >2.0 mmol/L be repeated. 9 Because ethnic data is not always [...] 5 Kidney failure <15 (or dialysis) 10 Because ethnic data is not always readily [...] 15-29 5 Kidney failure <15 (or dialysis) 11 >100 to <200 pg/mL: likely compensated congestive heart failure (CHF) 200 to 400 pg/mL: likely moderate CHF >400 pg/mL: likely moderate to severe CHF 12 Drain Cleaner: [id number] 13 Desirable: <150 Borderline High: 150-199 High: 200-499 Very High: >500 14 Desirable: <200 Borderline High: 200-239 High: >239 15 Low: <40 Desirable: 40-60 High: >60 16 Desirable: <100 Near Optimal: 100-129 Borderline High: 130-159 High: 160-189 Very High: >189 17 Serum levels of PSA measured using the [employer] [place] DXI Hybritech immunoassay should not be interpreted as absolute evidence of the presence or absence of disease. The PSA value should be used in conjunction with other pertinent clinical diagnostic procedures. The values obtained with different assay methods or kits cannot be used interchangeably. 18 Drain Cleaner: [id number] 20 SEE RESULT BELOW Name: CHRIS WALLIS JR : [address]: Amee Banuelos MD Acct: [id number] Unit: [id number] AGE: 71 Location: [facility] Re10/07/16 SEX: M Status: DEP ER SPEC: [id number] JC: 10/07/16-[address] [facility] [address]: Amee Banuelos MD REQ: [id number] RECD: 10/07/168361 STATUS: NATANAEL ESCOBAR DR: Geraldo Saab III, MD _ SOURCE: URINE [facility]: ORDERED: Urine Culture COMMENTS: [id number] Procedure Result Reported Site Urine Culture Final 10/08/16- 1250 ML No Growth (<1,000 CFU/mL) * ML - MAIN LAB ([facility]) . END OF REPORT * ML=Testing performed at Main Lab DEPARTMENT OF PATHOLOGY, [address] [place] [address] Jimmy Prater M.D. Director [facility] # [id number] 21 Because ethnic data is not always readily [...] 15-29 5 Kidney failure <15 (or dialysis) 22 >100 to <200 pg/mL: likely compensated congestive heart failure (CHF) 200 to 400 pg/mL: likely moderate CHF >400 pg/mL: likely moderate to severe CHF 23 Desirable <150 Borderline high 150-199 High 200-499 Very High >500 24 Desirable <200 Borderline high 200-239 High >239 25 Low <40 Desirable: 40-60 High: >60 26 Desirable: <100 mg/dL Near Optimal: 100-129 mg/dL Borderline High: 130-159 mg/dL High: 160-189 mg/dL Very High: >189 mg/dL 27 Because ethnic data is not always [...] 5 Kidney failure <15 (or dialysis) 28 *Ascorbic acid is present which may interfere with detection of blood. 29 Acute inflammation: >10.00 30 Reference Range and Interpretation: TnI (ng/mL) Interpretation Less Than 0.03 ng/mL Not supportive of diagnosis of [place] 0.03 - 0.50 ng/mL Indeterminate: suggest serial studies if clinically indicated. Greater than 0.5 ng/mL Consistent with diagnosis of [place] 31 Because ethnic data is not always [...] 5 Kidney failure <15 (or dialysis) 32 [facility] Severe Sepsis and Septic Shock Management Bundle Measure requires all lactic acids initially measuring >2.0 mmol/L be repeated. 33 >100 to <200 pg/mL: likely compensated congestive heart failure (CHF) 200 to 400 pg/mL: likely moderate CHF >400 pg/mL: likely moderate to severe CHF 34 Serum levels of PSA measured using the [employer] DXI Hybritech immunoassay should not be interpreted as absolute evidence of the presence or absence of disease. The PSA value should be used in conjunction with other pertinent clinical diagnostic procedures. The values obtained with different assay methods or kits cannot be used interchangeably. 35 CALL RESULTS TO TODAY [phone] 36 Because ethnic data is not always [...] 5 Kidney failure <15 (or dialysis) 37 Reference Range and Interpretation: TnI (ng/mL) Interpretation Less Than 0.03 ng/mL Not supportive of diagnosis of [place] 0.03 - 0.50 ng/mL Indeterminate: suggest serial studies if clinically indicated. Greater than 0.5 ng/mL Consistent with diagnosis of [place] 38 CALL RESULTS TO TODAY [phone] 39 >100 to <200 pg/mL: likely compensated congestive heart failure (CHF) 200 to 400 pg/mL: likely moderate CHF >400 pg/mL: likely moderate to severe CHF 40 Because ethnic data is not always readily [...] 15-29 5 Kidney failure <15 (or dialysis) 41 Desirable <150 Borderline high 150-199 High 200-499 Very High >500 42 Desirable <200 Borderline high 200-239 High >239 43 Low <40 Desirable: 40-60 High: >60 44 Desirable: <100 mg/dL Near Optimal: 100-129 mg/dL Borderline High: 130-159 mg/dL High: 160-189 mg/dL Very High: >189 mg/dL 45 FASTING 46 FASTING 47 Because ethnic data is not always readily [...] 15-29 5 Kidney failure <15 (or dialysis) 48 Therapeutic target for the treatment of diabetes Mellitus patients is <7% HBA1C, and in selective patients <6.0%.Please refer to [place] [employer] Diabetic care guidelines for further information. 49 Desirable <150 Borderline high 150-199 High 200-499 Very High >500 50 Desirable <200 Borderline high 200-239 High >239 51 Low <40 Desirable: 40-60 High: >60 52 Desirable <100 Near Optimal 100-129 Borderline high 130-159 High 160-189 Very High >189 53 Serum levels of PSA measured using the [employer] DXI Hybritech immunoassay should not be interpreted as absolute evidence of the presence or absence of disease. The PSA value should be used in conjunction with other pertinent clinical diagnostic procedures. The values obtained with different assay methods or kits cannot be used interchangeably. 54 PT IS FASTING 55 PT IS FASTING 56 HDL Interpretation: Undesirable: High Risk: Less than 40 MG/DL Desirable: Low Risk: Greater than 60 MG/DL 57 LDL Interpretation: Low Risk Optimal Level: LDL Less than 100 MG/DL Near or Above Optimal: LDL 100-129 MG/DL Borderline High Risk: LDL 130-159 MG/DL High Risk: LDL 160-189 MG/DL Very High Risk: LDL Greater than 189 MG/DL 58 Because ethnic data is not always readily [...] 15-29 5 Kidney failure <15 (or dialysis) 59 Serum levels of PSA measured using the [employer] [place] DXI Hybritech immunoassay should not be interpreted as absolute evidence of the presence or absence of disease. The PSA value should be used in conjunction with other pertinent clinical diagnostic procedures. The values obtained with different assay methods or kits cannot be used interchangeably. 60 Anion gap measurement may be of limited value in the presence of any alkalosis, especially in a combined acid base disorder. . 61 A metabolite of Naproxen, O-desmethylnaproxen, has been shown to interfere with the Jendrassik-Kevin method for measuring total bilirubin. Samples from patients who have taken Naproxen have shown spurious elevation in total bilirubin levels. 62 Because ethnic data is not always readily [...] 15-29 5 Kidney failure <15 (or dialysis) 63 CHOLESTEROL INTERPRETATION: Desirable: Less than 200 MG/DL Borderline-High Risk: 200-239 MG/DL High-Risk: 240 MG/DL and over 64 HDL INTERPRETATION: Undesirable: High Risk: Less than 40 MG/DL Desirable: Low Risk: Greater than 60 MG/DL 65 LDL INTERPRETATION: Low Risk Optimal Level: LDL Less than 100 MG/DL Near or Above Optimal: LDL 100-129 MG/DL Borderline High Risk: LDL 130-159 MG/DL High Risk: LDL 160-189 MG/DL Very High Risk: LDL Greater than 189 MG/DL 66 * SERUM LEVELS OF PSA MEASURED USING THE [employer] DAVID ACCESS HYBRITECH IMMUNOASSAY SHOULD NOT BE INTERPRETED ABSOLUTE EVIDENCE OF THE PRESENCE OR ABSENCE OF DISEASE. THE PSA VALUE SHOULD BE USED IN CONJUNCTION WITH OTHER PERTINENT CLINICAL DIAGNOSTIC PROCEDURES. The values obtained with different assay methods or kits cannot be used interchangeably. 67 * SERUM LEVELS OF PSA MEASURED USING THE [employer] DAVID ACCESS HYBRITECH IMMUNOASSAY SHOULD NOT BE INTERPRETED ABSOLUTE EVIDENCE OF THE PRESENCE OR ABSENCE OF DISEASE. THE PSA VALUE SHOULD BE USED IN CONJUNCTION WITH OTHER PERTINENT CLINICAL DIAGNOSTIC PROCEDURES. The values obtained with different assay methods or kits cannot be used interchangeably. 68 RUN DATE: 07/19/11 [facility] NMI LIVE PAGE 1 RUN TIME: 1149 Specimen Inquiry RUN USER: INTERFACE Name: CHRIS WALLIS JR Accaleena#: [id number] Status: REG REF Re07/17/11 Age/Sex: 66/M Unit#: [id number] Location: [facility] : 45 SPEC #: [id number] JC: 07/17/11 STATUS: COMP REQ #: [id number] RECD: 07/17/[address] [facility] [address]: Geraldo Saab III, MD SOURCE: URINE ENTR: 07/17/11-[address]: RONNIE: ORDERED: URINE C S QUERIES: MEDENT REQUISITION # [id number] ACT WKST: UR 07/19/11 #1 Procedure Result [...] *These antibiotics are not available in the [facility] Formulary. Contact the Microbiology Department for any additional antibiotic reporting. - [facility] State Permit #[id number] [address] [place] [address] DEPARTMENT OF PATHOLOGY, [address] [place] [address] [facility] Permit #[id number] Jimmy Prater M.D. Director Michelle Nelson M.D. Non Destructive Evaluation Technician 69 Anion gap measurement may be of limited value in the presence of any alkalosis, especially in a combined acid base disorder. . 70 A metabolite of Naproxen, O-desmethylnaproxen, has been shown to interfere with the Jendrassik-Kevin method for measuring total bilirubin. Samples from patients who have taken Naproxen have shown spurious elevation in total bilirubin levels. 71 Because ethnic data is not always readily [...] 15-29 5 Kidney failure <15 (or dialysis) 72 Test Performed by: [facility] Dpt of Lab Med and Pathology [address] [place] [address] Osha Inspector: Kobe Jimenez III, M.D. 73 Serologic response to B. burgdorferi infection is not detected, but cannot rule out early infection during which low or undetectable antibody levels to B. burgdorferi may be present. If clinically indicated, a new serum specimen should be submitted in 7-14 days. Test Performed by: [facility] Dpt of Lab Med and Pathology [address] [place] [address] Osha Inspector: Kobe Jimenez III, M.D. 74 Test Performed by: [facility] Dpt of Lab Med and Pathology [address] [place] [address] Osha Inspector: Kobe Jimenez III, M.D. 75 Test Performed by: [facility] Dpt of Lab Med and Pathology [address] [place] [address] Osha Inspector: Kobe Jimenez III, M.D. 76 * SERUM LEVELS OF PSA MEASURED USING THE [employer] ACCESS HYBRITECH IMMUNOASSAY SHOULD NOT BE INTERPRETED ABSOLUTE EVIDENCE OF THE PRESENCE OR ABSENCE OF DISEASE. THE PSA VALUE SHOULD BE USED IN CONJUNCTION WITH OTHER PERTINENT CLINICAL DIAGNOSTIC PROCEDURES. The values obtained with different assay methods or kits cannot be used interchangeably. 77 * SERUM LEVELS OF PSA MEASURED USING THE [employer] ACCESS HYBRITECH IMMUNOASSAY SHOULD NOT BE INTERPRETED ABSOLUTE EVIDENCE OF THE PRESENCE OR ABSENCE OF DISEASE. THE PSA VALUE SHOULD BE USED IN CONJUNCTION WITH OTHER PERTINENT CLINICAL DIAGNOSTIC PROCEDURES. 78 * SERUM LEVELS OF PSA MEASURED USING THE [employer] ACCESS HYBRITECH IMMUNOASSAY SHOULD NOT BE INTERPRETED ABSOLUTE EVIDENCE OF THE PRESENCE OR ABSENCE OF DISEASE. THE PSA VALUE SHOULD BE USED IN CONJUNCTION WITH OTHER PERTINENT CLINICAL DIAGNOSTIC PROCEDURES. 79 * SERUM LEVELS OF PSA MEASURED USING THE [employer] DAVID ACCESS HYBRITECH IMMUNOASSAY SHOULD NOT BE INTERPRETED ABSOLUTE EVIDENCE OF THE PRESENCE OR ABSENCE OF DISEASE. THE PSA VALUE SHOULD BE USED IN CONJUNCTION WITH OTHER PERTINENT CLINICAL DIAGNOSTIC PROCEDURES. 80 CHOLESTEROL INTERPRETATION: Desirable: Less than 200 [...] a combined acid base disorder. . 84 A metabolite of Naproxen, O-desmethylnaproxen, has been shown to interfere with the Jendrassik-[place] method for measuring total bilirubin. Samples from patients who have taken Naproxen have shown spurious elevation in total bilirubin levels. 85 Because ethnic data is not always readily [...] 15-29 5 Kidney failure <15 (or dialysis) 86 CHOLESTEROL INTERPRETATION: Desirable: Less than 200 MG/DL Borderline-High Risk: 200-239 MG/DL High-Risk: 240 MG/DL and over 87 HDL INTERPRETATION: Undesirable: High Risk: Less than 40 MG/DL Desirable: Low Risk: Greater than 60 MG/DL 88 LDL INTERPRETATION: Low Risk Optimal Level: LDL Less than 100 MG/DL Near or Above Optimal: LDL 100-129 MG/DL Borderline High Risk: LDL 130-159 MG/DL High Risk: LDL 160-189 MG/DL Very High Risk: LDL Greater than 189 MG/DL 89 Anion gap measurement may be of limited value in the presence of any alkalosis, especially in a combined acid base disorder. . 90 Note change in reference range as of 11/14/07. The change was based on recommendations from the [place] [employer]. 91 Please note change in reference range effective 07 . 92 A metabolite of Naproxen, O-desmethylnaproxen, has been shown to interfere with the Jendrassik-Kevin method for measuring total bilirubin. Samples from patients who have taken Naproxen have shown spurious elevation in total bilirubin levels. 93 Because ethnic data is not always readily [...] 15-29 5 Kidney failure <15 (or dialysis) 94 PATIENT MAY HAVE RESULTS PER DOCTOR'S AUTHORIZATION. Questions regarding this report should be directed to your doctor. 95 * SERUM LEVELS OF PSA MEASURED USING THE JOSHUA DAVID ACCESS HYBRITECH IMMUNOASSAY SHOULD NOT BE INTERPRETED ABSOLUTE EVIDENCE OF THE PRESENCE OR ABSENCE OF DISEASE. THE PSA VALUE SHOULD BE USED IN CONJUNCTION WITH OTHER PERTINENT CLINICAL DIAGNOSTIC PROCEDURES. 96 Anion gap measurement may be of limited value in the presence of any alkalosis, especially in a combined acid base disorder. . 97 Note change in reference range as of 11/14/07. The change was based on recommendations from the [place] [employer]. 98 Please note change in reference range effective 07 . 99 A metabolite of Naproxen, O-desmethylnaproxen, has been shown to interfere with the Jendrassik-Kevin method for measuring total bilirubin. Samples from patients who have taken Naproxen have shown spurious elevation in total bilirubin levels. 100 CHOLESTEROL INTERPRETATION: Desirable: Less than 200 MG/DL Borderline-High Risk: 200-239 MG/DL High-Risk: 240 MG/DL and over 101 HDL INTERPRETATION: Undesirable: High Risk: Less than 40 MG/DL Desirable: Low Risk: Greater than 60 MG/DL 102 LDL INTERPRETATION: Low Risk Optimal Level: LDL Less than 100 MG/DL Near or Above Optimal: LDL 100-129 MG/DL Borderline High Risk: LDL 130-159 MG/DL High Risk: LDL 160-189 MG/DL Very High Risk: LDL Greater than 189 MG/DL 103 * SERUM LEVELS OF PSA MEASURED USING THE Last Guide ACCESS HYBRITECH IMMUNOASSAY SHOULD NOT BE INTERPRETED ABSOLUTE EVIDENCE OF THE PRESENCE OR ABSENCE OF DISEASE. THE PSA VALUE SHOULD BE USED IN CONJUNCTION WITH OTHER PERTINENT CLINICAL DIAGNOSTIC PROCEDURES. 104 Anion gap measurement may be of limited value in the presence of any alkalosis, especially in a combined acid base disorder. . 105 CHOLESTEROL INTERPRETATION: Desirable: Less than 200 MG/DL Borderline-High Risk: 200-239 MG/DL High-Risk: 240 MG/DL and over 106 HDL INTERPRETATION: Undesirable: High Risk: Less than 40 MG/DL Desirable: Low Risk: Greater than 60 MG/DL 107 LDL INTERPRETATION: Low Risk Optimal Level: LDL Less than 100 MG/DL Near or Above Optimal: LDL 100-129 MG/DL Borderline High Risk: LDL 130-159 MG/DL High Risk: LDL 160-189 MG/DL Very High Risk: LDL Greater than 189 MG/DL 108 * SERUM LEVELS OF PSA MEASURED USING THE Last Guide ACCESS HYBRITECH IMMUNOASSAY SHOULD NOT BE INTERPRETED ABSOLUTE EVIDENCE OF THE PRESENCE OR ABSENCE OF DISEASE. THE PSA VALUE SHOULD BE USED IN CONJUNCTION WITH OTHER PERTINENT CLINICAL DIAGNOSTIC PROCEDURES. Procedures Date Code Description Status 05/20/2018 39792 EKG Tracing & Interpretation Completed 01/22/2018 45745 Neurostimulator Pulse Generator Analysis W/O Completed Reprogramming 12/19/2017 99615 EKG Tracing & Interpretation Completed 08/07/2017 79104 ECG Monitor/Recording W/Visual Superimposition Scanning Completed 07/13/2017 01643 Treadmill Interp/Report Only Completed 07/13/2017 16576 Stress Test Supervsn W/Out I/R Completed 07/10/2017 18903 ECHO Transthoracic, Real-Time 2D With Doppler And Color Completed Flow 07/10/2017 23989 ECHO Transthoracic, Real-Time 2D With Doppler And Color Completed Flow 06/21/2017 86702 EKG Tracing & Interpretation Completed 09/04/2016 [id number] Colonoscopy Completed 06/20/2016 39992 EKG Tracing & Interpretation Completed 04/07/2016 13448 EKG Tracing & Interpretation Completed 01/05/2016 05928 EKG Tracing & Interpretation Completed 04/21/2015 74683 EKG Tracing & Interpretation Completed 12/16/2014 25655 ECHO Transthoracic, Real-Time 2D With Doppler And Color Completed Flow 12/08/2014 50055 EKG Tracing & Interpretation Completed 12/04/2014 54390 Treadmill Interp/Report Only Completed 12/04/2014 95340 Stress Test Supervsn W/Out I/R Completed 09/24/2014 28260 Pulmonary Function><Bronchodil Completed 09/24/2014 26566 Diffusing Capacity Completed 09/24/2014 10737 Plethysmography Determination Lung Volumes & Per Airway Completed Resist 09/09/2014 04311 ECHO Transthoracic, Real-Time 2D With Doppler And Color Completed Flow 09/07/2014 27289 EKG Tracing & Interpretation Completed 06/18/2014 75382 Repair Hernia Inguinal > 5Yrs, Reducible Completed 06/18/2014 10335 Repair Hernia Umbilical > 5 Yrs, Reducible Completed 06/12/2014 20515 ECHO Transthoracic, Real-Time 2D With Doppler And Color Completed Flow 05/29/2014 22082 Treadmill Interp/Report Only Completed 05/29/2014 78385 Stress Test Supervsn W/Out I/R Completed 04/21/2014 68775 EKG Tracing & Interpretation Completed 09/24/2013 88243 Holter Monitoring 24 HR New Completed 09/09/2013 52401 ECHO Stress Test Incl Perf Contiuous ekg Monitoring Completed W/Phys Superv 09/05/2013 18237 ECHO Transthoracic, Real-Time 2D With Doppler And Color Completed Flow 08/08/2013 75158 EKG Tracing & Interpretation Completed 05/30/2012 18785 EKG Tracing & Interpretation Completed 11/23/2011 49269 Treadmill Interp/Report Only Completed 11/23/2011 60148 Stress Test Supervsn W/Out I/R Completed 11/22/2011 13645 ECHO Stress Test Incl Perf Contiuous ekg Monitoring Completed W/Phys Superv 11/22/2011 33407 ECHO Stress Test Incl Perf Contiuous ekg Monitoring Completed W/Phys Superv 08/24/2011 25481 Color Flow Doppler/Interp & Reprt Completed 08/24/2011 27779 Pulse Wave/Continuous-Interp.RPT Completed 08/24/2011 78677 ECHO Transthorasic Realtime 2D W Doppler & Color Flow Completed Hosp 08/17/2011 99561 EKG Tracing & Interpretation Completed 09/22/2005 [id number] Colonoscopy Completed Encounters Type Date Location Provider Dx Diagnosis Office Visit 05/20/2018 [facility] Isabel Correa, I95.1 Orthostatic 2:00p Of [employer]ensing [employer] Measuring Optician N.P. hypotension I49.3 Ventricular premature depolarization I49.5 Sick sinus syndrome R06.00 Dyspnea, unspecified Office Visit 04/29/2018 3:20p [facility] Internal Geraldo Cruz M54.5 Low back pain Medicine - Jos[place] K59.00 Constipation, unspecified R12 Heartburn Office Visit 04/16/2018 12:00p [facility] Neri Curry [facility] Josue disease G47.33 Obstructive sleep apnea (adult) (pediatric) R42 Dizziness and giddiness R26.81 Unsteadiness on feet Office Visit 03/15/2018 1:45p [facility] Neri Curry [facility] KeylaDPriti disease G47.33 Obstructive sleep apnea (adult) (pediatric) R42 Dizziness and giddiness R26.81 Unsteadiness on feet Office Visit 01/22/2018 9:15a [facility] Neri Curry [facility] KeylaDPriti disease G47.33 Obstructive sleep apnea (adult) (pediatric) R42 Dizziness and giddiness R26.81 Unsteadiness on feet Z96.89 Presence of other specified functional implants Office Visit 12/19/2017 2:30p [facility] Nahun Holder G47.33 Obstructive sleep Josue Clay apnea (adult) (pediatric) I49.3 Ventricular premature depolarization R42 Dizziness and giddiness I49.5 Sick sinus syndrome Office Visit 10/19/2017 Pulmonology Noble Silva G47.33 Obstructive sleep 10:30a [facility] [place], RN, apnea (adult) [facility] MARBLE FINISHER-BC (pediatric) R68.84 Jaw pain Office Visit 08/21/2017 11:30a [facility] Isabel Correa, R42 Dizziness and Of [employer]ensing [employer] Measuring Optician N.P. 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 R68.84 Jaw pain Office Visit 06/21/2017 9:00a [facility] Nahun Holder G2Nguyễn Parkinson 's Of [facility] Josue Clay disease R94.39 Abnormal result of other cardiovascular function study R42 Dizziness and giddiness R06.00 Dyspnea, unspecified I49.3 Ventricular premature depolarization Office Visit 04/12/2017 [facility] Internal Geraldo Cruz M26.623 Arthralgia of 11:40a Kelsey Saab M.D. bilateral [place] temporomandibular joint Office Visit 04/10/2017 [facility] Internal Geraldo Cruz Z00.00 Encntr for general 1:20p Kelsey [...] Sleep apnea, unspecified Office Visit 07/11/2016 9:40a [facility] Internal John Dyer NP M79.672 Pain in left Medicine - foot [place] Office Visit 06/20/2016 10:20a [facility] Nahun Holder G2Nguyễn Parkinson 's Josue Clay disease G47.30 Sleep apnea, unspecified R60.9 Edema, unspecified Office Visit 06/07/2016 3:30p [facility] Bruno G20 Parkinson's Services Of Nena Alaniz M.D. disease Office Visit 05/18/2016 10:40a [facility] Internal Kusum Bermudez, J20.9 Acute bronchitis, Medicine - N.P. unspecified [place] J01.90 Acute sinusitis, unspecified Office Visit 05/05/2016 [facility] And Shira G47.33 Obstructive sleep 11:45a [facility] [place], RN, apnea (adult) [facility] MARBLE FINISHER-BC (pediatric) Office Visit 04/07/2016 [facility] Internal Geraldo Cruz Z00.01 Encounter for 9:40a Kelsey Saab M.D. general adult [place] medical exam w abnormal findings G20 Parkinson's disease G47.30 Sleep apnea, unspecified E78.00 Pure hypercholesterolemia, unspecified N40.0 Benign prostatic hyperplasia without lower urinry tract symp R60.0 Localized edema Office Visit 03/10/2016 11:00a [facility] Internal Geraldo Cruz J06.9 Acute upper Kelsey Saab M.D. respiratory [place] infection, unspecified Office Visit 01/28/2016 9:00a [facility] Internal Maxi D17.21 Benign lipomatous Kelsey Kaiser M.D. neoplasm of skin, [place] subcu of right arm R29.6 Repeated falls R22.31 Localized swelling, mass and lump, right upper limb Office Visit 01/05/2016 [facility] Internal Geraldo Cruz Z01.810 Encounter for 11:20a Kelsey Saab M.D. preprocedural [place] cardiovascular examination G20 Parkinson's disease G47.30 Sleep apnea, unspecified Office Visit 11/24/2015 [facility] Bruno G20 Parkinson's 9:15a Clinic Josue Alaniz disease Office Visit 06/01/2015 [facility] Bruno G20 Parkinson's 2:45p Services Of Nena Alaniz M.D. disease Office Visit 04/21/2015 [facility] Nahun Holder G20 Parkinson's 11:40a Josue Clay disease E78.0 Pure hypercholesterolemia R07.9 Chest pain, unspecified R06.00 Dyspnea, unspecified R94.31 Abnormal electrocardiogram [ECG] [EKG] Office 02/10/2015 [facility] Ck S. G20 Parkinson's disease Visit 3:15p Neurologic Josue Alaniz Services Of [facility] Office 12/24/2014 [facility] Nahun Holder E78.0 Pure hypercholesterolemia Visit 2:40p Cardiology Josue Clay R07.9 Chest pain, unspecified R06.00 Dyspnea, unspecified R00.2 Palpitations Office Visit 12/03/2014 2:00p [facility] HEATHER Marquez 426.4 Right Bundle Branch Block 272.0 Hypercholesterolemia Pure 786.50 Pain Chest Unspec 427.69 Premature Beats Other Office Visit 12/02/2014 4:00p [facility] Internal Gerlado Cruz 786.50 Pain Chest Unspec Josue Borrego Office Visit 11/18/2014 2:30p [facility] Bruno 327.23 Obstructive Sleep Services Of Nena Alaniz M.D. Apnea Adult & Pediatric 332.0 Paralysis Agitans Office Visit 10/06/2014 [facility] And Shira 327.23 Obstructive Sleep 10:15a [facility] [place], RN, Apnea Adult & [facility] MARBLE FINISHER- Pediatric Office Visit 10/01/2014 Pulmonology And Sarah Muniz, 786.09 Dyspnea & 2:45p Sleep Services Of Respiratory [facility] Abnormalities Other Office Visit 09/07/2014 [facility] Nahun Holder 786.09 Dyspnea & 3:40p Josue Clay Respiratory Abnormalities Other 794.31 Electrocardiogram (ECG) (EKG) Abnormal 426.4 Right Bundle Branch Block Office Visit 09/03/2014 1:00p Pulmonology And Josef Malik, 786.05 Shortness Of Sleep Services Of Josue Breath [facility] Office Visit 08/31/2014 2:40p [facility] Internal Geraldo Cruz V06.1 Diphtheria- Tetan Kelsey Saab M.D. us-Pertusis [place] Combined (DTaP) V03.82 Streptococcus Pneumoniae Vaccination Spec Other 786.05 Shortness Of Breath Office Visit 05/29/2014 11:30a [facility] Nahun Holder 550.90 Hernia Inguinal Josue Clay W/O Obstruct Or Gangrene Unilateral Unspec 272.0 Hypercholesterolemia Pure 426.4 Right Bundle Branch Block 794.31 Electrocardiogram (ECG) (EKG) Abnormal 414.01 Coronary Atherosclerosis [place] Office Visit 05/21/2014 4:00p [facility] Internal Geraldo Cruz 550.90 Hernia Inguinal Kelsey Saab M.D. W/O Obstruct Or [place] Gangrene Unilateral Unspec Office Visit 05/07/2014 4:00p [facility] Internal Geraldo Cruz 550.90 Hernia Inguinal Kelsey Saab M.D. W/O Obstruct Or [place] Gangrene Unilateral Unspec Office Visit 04/28/2014 2:45p [facility] Bruno 332.0 Paralysis Agitans Services Of Nena Alaniz M.D. Office Visit 04/23/2014 9:20a [facility] Internal Geraldo Cruz 465.9 URI Upper Kelsey Saab M.D. Respiratory [place] Infections Acute Unspec Sites 332.0 Paralysis Agitans Office 04/21/2014 Maddie Holder 272.0 Hypercholesterolemia Pure Visit 3:00p Cardiology Josue Clay 794.31 Electrocardiogram (ECG) (EKG) Abnormal 426.4 Right Bundle Branch Block Office Visit 03/02/2014 [facility] Internal Geraldo Cruz 465.9 URI Upper Respiratory 2:20p Kelsey Saab M.D. Infections Acute [place] Unspec Sites Office Visit 10/29/2013 Maddie Bruno 332.0 Paralysis Agitans 1:45p Neurologic Josue Alaniz Services Of [facility] Office Visit 08/08/2013 Maddie Holder 794.31 Electrocardiogram 3:20p Cardiology Josue Clay (ECG) (EKG) Abnormal 332.0 Paralysis Agitans 272.0 Hypercholesterolemia Pure 414.01 Coronary Atherosclerosis [place] 782.3 Edema Office Visit 07/15/2013 3:00p [facility] Binu Bruno 332.0 Paralysis Services Of [facility] Josue Alaniz Agitans Office Visit 06/23/2013 11:00a [facility] Rosaline Cruz 790.21 Impaired Fasting Kelsey Saab M.D. Glucose [place] 780.57 Unspecified Sleep Apnea 332.0 Paralysis Agitans 272.0 Hypercholesterolemia Pure Office Visit 01/23/2013 10:30a [facility] Internal Samra Alexis, 477.9 Rhinitis Medicine - N.P. Allergic Cause [place] Unspec 465.9 URI Upper Respiratory Infections Acute Unspec Sites Office Visit 01/15/2013 Maddie Bruno 332.0 Paralysis Agitans 2:45p Neurologic Josue Alaniz Services Of [facility] Office Visit 08/27/2012 [facility] Internal Geraldo Cruz 553.1 Hernia Umbilical 1:00p Kelsey Saab M.D. [place] Office Visit 08/02/2012 [facility] Internal Geraldo Cruz 724.5 Backache Unspec 10:20a Kelsey Saab M.D. [place] Office Visit 07/16/2012 [facility] Ck Bruno 332.0 Paralysis Agitans 2:45p Binu Alaniz M.D. Services Of [facility] Office Visit 06/19/2012 [facility] Internal Geraldo Cruz 719.46 Pain Joint Lower 2:40p Kelsey Saab M.D. Leg [place] Office Visit 06/10/2012 [facility] Rosaline Cruz 381.19 Otitis Media 10:40a Kelsey Saab M.D. Chronic Serous [place] Other Office Visit 05/30/2012 [facility] Nahun Holder 786.09 Dyspnea & 10:20a Cardiology Josue Clay Respiratory Abnormalities Other 426.52 Right Bundle Branch Block W/ Left Anterior Fascicular Block 794.31 Electrocardiogram (ECG) (EKG) Abnormal Office Visit 05/03/2012 11:20a [facility] Internal Geraldo Cruz 465.9 URI Upper Kelsey Saab M.D. Respiratory [place] Infections Acute Unspec Sites 382.9 Otitis Media Unspec Office Visit 04/03/2012 3:40p [facility] Internal Geraldo Cruz 726.19 Shoulder Disorders Kelsey Saab M.D. Other Spec [place] Office Visit 02/21/2012 1:20p [facility] Internal Geraldo Cruz 786.09 Dyspnea & Kelsey Saab M.D. Respiratory [place] Abnormalities Other Office Visit 01/16/2012 2:30p [place] [facility] Ck Bruno 332.0 Paralysis Agitans Neurologic Josue Alaniz Services Of [facility] Office Visit 12/20/2011 10:00a [facility] Internal Geraldo Cruz 780.79 Malaise And Fatigue Kelsey Saab M.D. Other [place] 786.09 Dyspnea & Respiratory Abnormalities Other 600.20 Benign Localized Hyperplasia Prostate W/O Urinary Obstruct Office Visit 11/24/2011 11:15a [facility] SPriti 780.93 Memory Loss Services Of [facility] Josue Alaniz 780.79 Malaise And Fatigue Other Office Visit 11/22/2011 11:30a [facility] Nahun Holder 786.05 Shortness Of Josue Clay Breath 794.31 Electrocardiogram (ECG) (EKG) Abnormal 780.79 Malaise And Fatigue Other Office Visit 11/01/2011 1:00p [facility] Internal Geraldo Cruz 786.05 Abby Of Kelsey Saab M.D. Breath [place] 780.93 Memory Loss Office Visit 08/17/2011 1:40p [facility] Internal Geraldo Cruz 786.09 Dyspnea & Kelsey Saab M.D. Respiratory [place] Abnormalities Other Office Visit 07/17/2011 1:00p [facility] Internal Geraldo Cruz 599.0 UTI Urinary Tract Kelsey Saab M.D. Infection Site Not [place] Spec 790.21 Impaired Fasting Glucose Office Visit 07/07/2011 11:40a [facility] Internal Geraldo Cruz 780.79 Malaise And Kelsey Saab M.D. Fatigue Other [place] 784.1 Throat Pain Office Visit 06/20/2011 10:40a [facility] Internal Geraldo Cruz 780.79 Malaise And Kelsey Saab M.D. Fatigue Other [place] Office Visit 06/13/2011 1:40p [facility] Internal Geraldo Cruz 780.79 Malaise And Kelsey Saab M.D. Fatigue Other [place] Office Visit 04/19/2011 10:00a [facility] Internal Geraldo Cruz 719.46 Pain Joint Lower Kelsey Saab M.D. Leg [place] Office Visit 12/06/2010 10:00a DO Not Use [employer]ensing [employer] Measuring Optician Jason 601.1 Prostatitis AT Cuate Sparks M.D. Office Visit 11/24/2010 1:00p DO Not Use [employer] Measuring Optician Geraldo Cruz V70.0 Examination AT Oli Saab M.D. General Medical Routine AT Health Care Facility 790.21 Impaired Fasting Glucose 477.9 Rhinitis Allergic Cause Unspec 723.1 Cervicalgia 600.20 Benign Localized Hyperplasia Prostate W/O Urinary Obstruct Office Visit 07/28/2010 4:00p DO Not Use [employer] Measuring Optician Geraldo E. 726.19 Shoulder AT Oli Saab M.D. Disorders Other Spec 780.79 Malaise And Fatigue Other V03.82 Streptococcus Pneumoniae Vaccination Spec Other Office Visit 04/15/2010 9:20a DO Not Use [employer]ensing [employer] Measuring Optician Geraldo E. 465.9 URI Upper AT Oli Saab M.D. Respiratory Infections Acute Unspec Sites Office Visit 11/25/2009 3:40p DO Not Use [employer]ensing [employer] Measuring Optician Geraldo E. 604.90 Orchitis & AT Oli Saab M.D. Epididymitis Unspec Office Visit 09/09/2009 9:00a DO Not Use [employer]pensing And Measuring Optician Geraldo E. V70.0 Examination General AT Oli Saab M.D. Medical Routine AT Health Care Facility 790.21 Impaired Fasting Glucose 600.20 Benign Localized Hyperplasia Prostate W/O Urinary Obstruct Office Visit 05/31/2009 3:20p DO Not Use [employer] Measuring Optician Geraldo E. 300.02 Anxiety Disorder AT Oli Saab M.D. Generalized 796.2 Blood Pressure Reading Elevated W/O Hypertension Office Visit 05/03/2009 2:40p DO Not Use [employer]pensing And Measuring Optician Geraldo E. 465.9 URI Upper AT Oli Saab M.D. Respiratory Infections Acute Unspec Sites 780.79 Malaise And Fatigue Other Office Visit 12/17/2008 11:15a DO Not Use [employer]pensing And Measuring Optician Geraldo E. 465.9 URI Upper AT Oli Saab M.D. Respiratory Infections Acute Unspec Sites Office Visit 09/07/2008 9:00a [facility] Geraldo E. V05.8 Single Disease AT Bry Saab M.D. Spec Other [place] Vaccination & Inoculation V70.0 Examination General Medical Routine AT Health Care Facility 602.9 Prostate Disorder Unspec Office Visit 12/20/2007 10:15a [facility] Geraldo E. 465.9 URI Upper Assoc AT Josue Saab Respiratory [facility] Infections Acute Unspec Sites Office Visit 11/27/2007 10:30a [facility] Geraldo E. 723.1 Cervicalgia Assoc AT Josue Saab [facility] 780.52 Insomnia Unspecified Office Visit 09/05/2007 9:30a [facility] AT Geraldo Saab, 724.2 Lumbago [facility] Josue 602.9 Prostate Disorder Unspec 477.9 Rhinitis Allergic Cause Unspec V70.0 Examination General Medical Routine AT Health Care Facility Office Visit 06/20/2007 3:15p [facility] Vernon Cruz 465.9 URI Upper Assoc AT Josue Saab Respiratory [facility] Infections Acute Unspec Sites Office Visit 03/29/2007 9:15a [facility] Vernon Cruz 724.2 Lumbago Assoc AT Josue Saab [facility] Plan of Treatment Future Appointment(s):07/08/2018 12:00 pm - Drew Thomas M.D. at [place] [facility]10/22/2018 2:15 pm - Shira [place] DNP, RN, MARBLE FINISHER- BC at [facility]06/12/2018 - Danny Mir, MDM25.561 Pain in right kneeNew Xrays:CT Extremity Lower Right Wo, Ordered: Follow up:after testing / imaging is [id number] Effusion, right kneeS80.01xA Contusion of right knee, initial encounterNew Medication:Roller Walker -
--- NOTE | 2018-06-17 22:43 | ED ---
Adult Trauma - HPI Summary HPI Summary: Pt is a 73 y/o M presenting to the ED with a chief complaint of a fall. He states he was watching TV, went to go upstairs around 2144, and he is unsure if he tripped or fell over, but he landed on his R knee and also hit his R eye. Per , he fell ten days ago and landed on the same knee, which is why his R ankle has bruises. He reports pain and edema in his R knee and eye. The pt's also reports the pt has Parkinson's and has recently been falling more frequently. 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 - Mechanism of Injury: Fall Ambulatory at the Scene: No Loss of Consciousness: no loss of consciousness Onset/Duration: Started Hours Ago, Still Present Onset of Pain: Immediate Onset Severity: Moderate Current Severity: Moderate Pain Intensity: 5 Pain Scale Used: 0-10 Numeric Location: Extremities - R knee, Other - R eye Character: Aching Aggravating Factor(s): Movement, Weight Bearing, Ambulation Alleviating Factor(s): Rest, Ice Associated Signs & Symptoms: Positive: Ecchymosis - R eye, Other: - edema in R eye and knee Related History: Other: - pt's reports he has parkinson's and has been falling more recently - Allergy/Home Medications Allergies/Adverse Reactions: Allergies Allergy/AdvReac Type Severity Reaction Status Date / Time ciprofloxacin [From Cipro] Allergy Unknown Verified 06/17/18 21:54 Reaction Details clopidogrel [From Plavix] Allergy Unknown Verified 06/17/18 21:54 Reaction Details minocycline Allergy Hives Verified 06/17/18 21:54 Home Medications: Home Medications Polyethylene Glycol 3350 [Miralax] 17 gm PO DAILY WITH MEAL 06/17/18 [History Confirmed 06/17/18] PMH/Surg Hx/FS Hx/Imm Hx Previously Healthy: No Endocrine/Hematology History: Denies: Hx Diabetes, Hx Thyroid Disease Cardiovascular History: Reports: Hx Hypertension, Other Cardiovascular Problems/ Disorders - ISCHEMIC CVA Denies: Hx Angina, Hx Coronary Artery Disease, Hx Hypercholesterolemia, Hx Myocardial Infarction, Hx Valvular Heart Disease Respiratory History: Reports: Hx Sleep Apnea - current BiPAP user, compliant, Other Respiratory Problems/Disorders - SLEEP APNEA Denies: Hx Asthma, Hx Chronic Obstructive Pulmonary Disease (COPD) GI History: Reports: Other GI Disorders - FEELS FULL QUICKLY Denies: Hx Ulcer History: Reports: Hx Benign Prostatic Hyperplasia Musculoskeletal History: Reports: Hx Back Problems Denies: Other Musculoskeletal History Sensory History: Reports: Hx Contacts or Glasses - GLASSES, Hx Glaucoma - SUSPECT, Hx Hearing Aid - [facility] Opthamlomology History: Reports: Hx Contacts or Glasses - GLASSES, Hx Glaucoma - SUSPECT Neurological History: Reports: Hx Headaches, Hx Nerve Disease - EARLY PARKINSONS , 2011 Denies: Other Neuro Impairments/Disorders - Cancer History Cancer Type, Location and Year: BASAL CELL - Surgical History Surgery Procedure, Year, and Place: T/A A CHILD, 1951, [place]. 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 WISDOM TEETH 1971,. basal cell FACE AND BACK SEVERAL TIMES IN PAST 10-15 YRS,. hernia repair inguinal + umbilical. Deep Brain Stimulation electrodes in place + pacer Hx Anesthesia Reactions: No Infectious Disease History: No Infectious Disease History: Denies: Hx Clostridium Difficile, Hx Hepatitis, Hx Human Immunodeficiency Virus (HIV), Hx of Known/Suspected MRSA, Hx Shingles, Hx Tuberculosis, Hx Known/ Suspected VRE, Hx Known/Suspected VRSA, History Other Infectious Disease, Traveled Outside the [place] in Last 30 Days - Family History Known Family History: Positive: Hypertension Negative: Diabetes - Social History Alcohol Use: Occasionally Alcohol Amount: 2 glasses wine 4 days/week Hx Substance Use: No Substance Use Type: Reports: None Hx Tobacco Use: Yes Smoking Status (MU): Former Smoker Type: Pipe Amount Used/How Often: PIPE Have You Smoked in the Last Year: No Review of Systems Positive: Other - ecchymosis over R eye Positive: Arthralgia, Edema Positive: Bruising - R eye All Other Systems Reviewed And Are Negative: Yes Physical Exam - Summary Physical Exam Summary: VITAL SIGNS: Reviewed. GENERAL: Patient is a well-developed and nourished male who is lying comfortable in the stretcher. Patient is not in any acute respiratory distress. HEAD AND FACE: No signs of trauma. No ecchymosis, hematomas or skull depressions. No sinus tenderness. EYES: PERRLA, EOMI x 2, No injected conjunctiva, no nystagmus. Edema and ecchymosis over R eye, vision intact. EARS: Hearing grossly intact. Ear canals and tympanic membranes are within normal limits. MOUTH: Oropharynx within normal limits. NECK: Supple, trachea is midline, no adenopathy, no JVD, no carotid bruit, no c- spine tenderness, neck with full ROM. CHEST: Symmetric, no tenderness at palpation LUNGS: Clear to auscultation bilaterally. No wheezing or crackles. CVS: Regular rate and rhythm, S1 and S2 present, no murmurs or gallops appreciated. ABDOMEN: Soft, non-tender. No signs of distention. No rebound no guarding, and no masses palpated. Bowel sounds are normal. EXTREMITIES: Edema in R knee without decreased ROM. No clubbing or cyanosis. NEURO: Alert and oriented x 3. No acute neurological deficits. Speech is normal and follows commands. SKIN: Dry and warm GCS: 15 Triage Information Reviewed: Yes Vital Signs On Initial Exam: Initial Vitals Temp Pulse Resp BP Pulse Ox 97.6 F 74 16 131/80 97 06/17/18 21:52 06/17/18 21:52 06/17/18 21:52 06/17/18 21:52 06/17/18 21:52 Vital Signs Reviewed: Yes Diagnostics - Vital Signs Vital Signs Temp Pulse Resp BP Pulse Ox 06/17/18 21:52 97.6 F 74 16 131/80 97 - Laboratory Result Diagrams: 06/18/18 00:29 06/18/18 00:29 Lab Statement: Any lab studies that have been ordered have been reviewed, and results considered in the medical decision making process. - Radiology CXR Radiology Interpretation Completed By: ED Physician Summary of Radiographic Findings: No acute process. Pending official radiology report. - CT Brain CT CT Interpretation Completed By: Radiologist Summary of CT Findings: 1. Comminuted fracture involving the anterior wall of the right maxillary sinus with a probable fracture of the floor of the right orbit. An air blood level in the right maxillary sinus. The right globe, extraocular muscles and intracoronal structures are intact. Right orbital emphysema with air located in the pre-septal space. Subcutaneous air is also seen in the area of the right infratemporal fossa extending into the supratemporal region. 2. No acute intracranial hemorrhage. No intracranial mass or mass effect. 3. Bilateral electrodes located in the right basal ganglia /thalamic region. The electrodes were placed via a high frontal approach in which there bilateral win hole's. ED physician has reviewed this report. C-spine CT CT Interpretation Completed By: Radiologist Summary of CT Findings: 1. No evidence of acute fracture involving the cervical vertebral bodies or posterior elements. No pathologic subluxation. 2. Subcutaneous emphysema extending from the right maxillary sinus dissecting inferiorly to the area the body of the mandible on the right side, right parapharyngeal space and superficial soft tissues. ED physician has reviewed this report. Maxillofacial CT CT Interpretation Completed By: Radiologist Summary of CT Findings: 1. Comminuted fracture involving the anterior wall of the right maxillary sinus which is depressed centrally by about 1.1 cm. Air blood level located in the right maxillary sinus. Associated fracture of the floor of the right orbit and lateral wall of the right maxillary sinus. 2. Fracture of the floor of the right orbit which is minimally depressed. No downward displacement of the inferior rectus, inferior oblique or fat through the fracture. Associated fracture involving the lateral wall of the right orbit. The right globe, extraocular muscles and intracoronal structures are intact. 3. Extensive emphysema overlying the right orbit located predominantly in the preseptal space. There is some air located adjacent to the inner surface of the lateral wall of the right orbit. Air is also seen in the right infratemporal fossa extending into the supratemporal fossa overlying the temporalis muscle. Air dissects inferiorly to the area of the body of the right mandible as well as in the right parapharyngeal space. Small bubbles of air are located in the left pterygoid musculature. 4. Electrodes are located in the area the basal ganglia/loss bilaterally. There are placed via a high frontal approach. ED physician has reviewed this report. Lower Extremity CT CT Interpretation Completed By: Radiologist Summary of CT Findings: 1. No evidence of a fracture involving the femoral condyles or tibial plateaus. No fracture of the distal tibia, and proximal tibia or fibula. 2. The patella is intact. 3. Calcification within the medial and lateral compartment of the knee consistent with chondrocalcinosis. No suprapatellar joint effusion. 4. Subcutaneous edema surrounding the knee. No free subcutaneous or joint space air. ED physician has reviewed this report. Adult Trauma Course/Dx - Course Course Of Treatment: Pt is a 73 y/o M presenting to the ED with a chief complaint of a fall. He is unsure if he tripped over something or fell, but he landed on his R knee and eye. Per , he has had increased recent falls due to his hx of Parkinson's. He reports pain in his R knee and eye with edema. Brain CT shows: 1. Comminuted fracture involving the anterior wall of the right maxillary sinus with a probable fracture of the floor of the right orbit. An air blood level in the right maxillary sinus. The right globe, extraocular muscles and intracoronal structures are intact. Right orbital emphysema with air located in the pre-septal space. Subcutaneous air is also seen in the area of the right infratemporal fossa extending into the supratemporal region. 2. No acute intracranial hemorrhage. No intracranial mass or mass effect. 3. Bilateral electrodes located in the right basal ganglia/thalamic region. The electrodes were placed via a high frontal approach in which there bilateral win hole's. C-spine CT shows: 1. No evidence of acute fracture involving the cervical vertebral bodies or posterior elements. No pathologic subluxation. 2. Subcutaneous emphysema extending from the right maxillary sinus dissecting inferiorly to the area the body of the mandible on the right side, right parapharyngeal space and superficial soft tissues. Maxillofacial CT shows: 1. Comminuted fracture involving the anterior wall of the right maxillary sinus which is depressed centrally by about 1.1 cm. Air blood level located in the right maxillary sinus. Associated fracture of the floor of the right orbit and lateral wall of the right maxillary sinus. 2. Fracture of the floor of the right orbit which is minimally depressed. No downward displacement of the inferior rectus, inferior oblique or fat through the fracture. Associated fracture involving the lateral wall of the right orbit. The right globe, extraocular muscles and intracoronal structures are intact. 3. Extensive emphysema overlying the right orbit located predominantly in the preseptal space. There is some air located adjacent to the inner surface of the lateral wall of the right orbit. Air is also seen in the right infratemporal fossa extending into the supratemporal fossa overlying the temporalis muscle. Air dissects inferiorly to the area of the body of the right mandible as well as in the right parapharyngeal space. Small bubbles of air are located in the left pterygoid musculature. 4. Electrodes are located in the area the basal ganglia/ loss bilaterally. There are placed via a high frontal approach. Lower Extremity CT shows: 1. No evidence of a fracture involving the femoral condyles or tibial plateaus. No fracture of the distal tibia, and proximal tibia or fibula. 2. The patella is intact. 3. Calcification within the medial and lateral compartment of the knee consistent with chondrocalcinosis. No suprapatellar joint effusion. 4. Subcutaneous edema surrounding the knee. No free subcutaneous or joint space air. As of 109, I discussed case with the maxillofacial attending at [facility], Dr. Glass. He stated the pt does not need to be transferred immediately and can be d/c'ed with abx and instructions to f/u with maxillofacial [facility] within the next 24-48 hours. The phone number for the office will be given to the pt. The chose [facility] as the higher level of care facility as she has chosen them in the past for neurosurgery and dentistry. - Diagnoses Provider Diagnoses: Facial fracture Discharge - Sign-Out/Discharge Documenting (check all that apply): Patient Departure Patient Received Moderate/Deep Sedation with Procedure: No - Discharge Plan Condition: Stable Disposition: HOME Patient Education Materials: Facial Fracture (ED) Referrals: Geraldo Saab MD [Primary Care Provider] - Additional Instructions: Please follow up with Dr. Glass of maxillofacial care at [facility]. Call tomorrow morning to make an appointment for Sunday. The number to call to schedule an appointment is [phone]. Return to the emergency department with any new or worsening symptoms. - Attestation Statements Document Initiated by Scribe: Yes Documenting Scribe: Mitali Mcpherson Provider For Whom Jessa is Documenting (Include Credential): María James MD. Scribe Attestation: Mitali Rojas, scribed for María James MD. on 06/18/18 at 0126. Status of Scribe Document: Ready Consult Consult: 010 - Discussed case with the maxillofacial attending at [facility], Dr. Glass. He stated the pt does not need to be transferred immediately and can be d/c'ed with abx and instructions to f/u with maxillofacial at [facility] within the next 24-48 hours. The phone number for the office will be given to the pt. The chose [facility] as the higher level of care facility as she has chosen them in the past for neurosurgery and dentistry.
[2018-06-18] MEDS ORDERED: Piperacillin/Tazobac ADVAN(*) 3.375 GM in NS 0.9% 100 ML* 100 ML IVPB ONE (00:23)
[2018-06-18] MEDS ORDERED: NS 0.9% 1000 ML** 1,000 ML IV ONE (00:23)
[2018-06-18 00:48] LABS: ABS Basophils 0 10^3/ul (0-0.2); ABS Eosinophils 0 10^3/ul (0-0.6); ABS Lymphocytes 0.9 10^3/ul (1.0-4.8); ABS Monocytes 0.8 10^3/ul (0-0.8); ABS Neutrophils 7.9 10^3/ul (1.5-7.7); ABS Nucleated RBC 0 10^3/ul; Eosinophil % 0.3 %; Hematocrit 41 % (36-46); Hemoglobin 13.9 g/dL (14.0-18.0); Mean Corpuscular HGB Conc 34 g/dL (31-36); Mean Corpuscular Hemoglobin 33 pg (27-31); Mean Corpuscular Volume 98 fL (80-94); Mean Platelet Volume 8.8 fL (7.4-10.4); Nucleated Red Blood Cells % 0.1; Platelet Count 197 10^3/uL (150-450); Red Blood Count 4.16 10^6 /uL (4.18-5.48); Red Cell Distribution Width 13 % (10.5-15); White Blood Count 9.7 10^3/uL (3.5-10.8)
[2018-06-18 00:59] LABS: Albumin 3.9 g/dL (3.2-5.2); Albumin/Globulin Ratio 1.9 (1-3); BUN/Creatinine Ratio 31.8 (8-20); Calcium 8.9 mg/dL (8.6-10.3); EGFR African American 143.2 (>60); EGFR Non-African American 118.3 (>60); Globulin 2.1 g/dL (2-4); Potassium 4.1 mmol/L (3.5-5.0); Total Bilirubin 1.1 mg/dL (0.2-1.0)
[2018-06-18 01:03] LABS: Activated Partial Thrombo Time 27.7 seconds (26.0-36.3); INR 0.97 (0.77-1.02)
[2018-06-18 01:46] VITALS: BP 151/94
== END 2018-06-18 01:45 | disposition home or self-care (01) ==
LOC: ED 21:36
DX: S02.40CA Maxillary fracture, right side, initial encounter for closed fracture (principal); S02.31XA Fracture of orbital floor, right side, initial encounter for closed fracture; S05.11XA Contusion of eyeball and orbital tissues, right eye, initial encounter; R60.0 Localized edema; M25.561 Pain in right knee; W19.XXXA Unspecified fall, initial encounter; Y92.009 Unspecified place in unspecified non-institutional (private) residence as the place of occurrence of the external cause; G20 Parkinson's disease; I10 Essential (primary) hypertension; G47.30 Sleep apnea, unspecified; Z88.1 Allergy status to other antibiotic agents; Z88.8 Allergy status to other drugs, medicaments and biological substances; Z87.891 Personal history of nicotine dependence
CPT/HCPCS: 36415; 70450; 70486; 71045; 72125; 80053; 82550; 85025; 85610; 85730; 96361; 96365; 99285; J2543

== ENCOUNTER 2018-08-08 13:34 | Inpatient (IN) | payer MEDICARE, BC ==
--- OUTSIDE RECORDS SUMMARY | 2018-08-08 14:36 | XMS REPORT | Continuity of Care Document ---
:1945 External Reference #:[id number] Author Name Adele Ortiz Care Team Providers Name Role Phone Geraldo Saab III, MD Primary Care Physician Unavailable Payers Date Identification Numbers Payment Provider Subscriber Effective: 2009 Policy Number: [id number] Medicare Chris Wallis PayID: [id number] [address] [place] [address] Policy Number: [id number] [facility] Chris Wallis JR Group Number: [id number] [address] PayID: [id number] [place] [address] Advance Directives Description No Information Available Problems Active Problems Provider Date Impaired fasting glycaemia Geraldo Saab M.D. Onset: 11/24/2010 Allergic rhinitis Geraldo Saab M.D. Onset: 11/24/2010 Arthralgia of the lower leg Geraldo Saab M.D. Onset: 04/19/2011 Malaise and fatigue Geraldo Saab M.D. Onset: 06/20/2011 Urinary tract infectious disease Geraldo Saab M.D. Onset: 07/17/2011 Dyspnea Geraldo Saab M.D. Onset: 11/01/2011 Amnesia Geraldo Saab M.D. Onset: 11/01/2011 Electrocardiogram abnormal Nahun Clay M.D. Onset: 11/22/2011 Umbilical hernia Geraldo Saab M.D. Onset: 08/27/2012 Sleep apnea Geraldo Saab M.D. Onset: 06/23/2013 Parkinson's disease Geraldo Saab M.D. Onset: 06/23/2013 Pure hypercholesterolemia Nahun Clay M.D. Onset: 08/08/2013 Coronary arteriosclerosis Nahun Clay M.D. Onset: 08/08/2013 Edema Nahun Clay M.D. Onset: 08/08/2013 Difficulty breathing Sarah Muniz MD Onset: 10/01/2014 Obstructive sleep apnea of adult Shira Loredo DNP, RN, [employer]- Onset: Dizziness and giddiness Drew Thomas M.D. Onset: 01/22/2018 Abnormal gait Drew Thomas M.D. Onset: 01/22/2018 Orthostatic hypotension Drew Thomas M.D. Onset: 06/04/2018 Nervous system symptoms Drew Thomas M.D. Onset: 07/11/2018 Family History Date Family Member(s) Observation Comments Father due to Heart Attack age 63 () Siblings 1 Social History Type Date Description Comments Sex Unknown Marital Status Lives With Occupation Retired Hand Dominance Right-handed Tobacco Use Start: Unknown Never Smoked Cigarettes Cigarette Use pipe only in the past Tobacco Use Start: Unknown Quit in 1982 Smoking Status Reviewed: 07/26/18 Quit in 1982 ETOH Use Consumes 1 glass of 2 glasses, 3-4 days wine per day weekly Recreational Drug Use Denies Drug Use Tobacco Use Start: Unknown End: Patient is a former smoke for short Unknown smoker period, 1982 Recreational Drug Use frequent falls d/t Parkinsons, unable to exercise Allergies, Adverse Reactions, Alerts Active Allergies Reaction Severity Comments Date Plavix Bruise umaña 03/28/2007 Minocycline Hives Hives 03/28/2007 Cipro Cramps 07/17/2011 Medications Active Medications SIG Qnty Indications Ordering Provider Date Compression Stockings 20/30 mmhg thigh 2Pair R60.0 Danny Mir MD 07/12 high ht: 70" Misc wt: 185 lbs Roller Walker S80.01xA Danny Mir MD 06/12/2018 Misc G20 Sinemet CR 3 tabs by mouth 360tabs Brendan Dowd, N.P. 06/04/2018 25-100mg four times a day Tablets ER Melatonin 1 cap at bedtime Drew Thomas 03/15/2018 5mg Capsules M.D. Famotidine take one tablet 90tabs K21.9 Geraldo Saab, 04/10/2017 40mg Tablets by mouth once M.D. daily Azilect 1 tab by mouth Unknown 05/04/2016 1mg Tablets daily Prozac take one capsule 90caps Drew Thomas, 06/01/2015 20mg Capsules by mouth once M.D. daily Miralax 17 grams by mouth Unknown Powder twice a day as needed Glucosamine take one Unknown Chondroitin 1500 capsule/tablet Complex Maximum daily by mouth Strength 1500Com Capsules Finasteride once daily Migel Young MD 5mg Tablets Magnesium 1 by mouth twice Unknown 250mg Tablets a day Tamsulosin HCL 1 po qd Unknown 0.4mg Flaxseed Oil 1 PO two times Geraldo Saab III 1000mg per day MD Anthony History Medications Fludrocortisone take 1 tab by 30tabs I95.1 Isabel Correa, 05/20/2018 - Acetate mouth daily N.P. 06/03/2018 0.1mg Tablets Sinemet CR 2 tabs by mouth 240tabs Drew 04/25/2018 - 25-100mg four times a day Josue Thomas 06/04/2018 Tablets ER (patient using this formulation while CD/LD ER 50-200 mg are on backorder) Sinemet ER 2 by mouth four Ck S. 03/28/2018 - 25-100mg times a day Josue Alaniz 04/15/2018 Tablets Sinemet 2 po qid 240tabs Ck Bruno 03/27/2018 - 25-100mg Josue Alaniz 03/28/2018 Tablets Carbidopa-Levodopa ER take 1 pill 4 120tabs G20 Drew 03/15/2018 - times a day, Josue Thomas 06/03/2018 50-200mg Tablets ER 6am, 10am, 2pm and 6pm Trazodone HCL 1 by mouth every 30tabs G47.33 Drew 01/22/2018 - 50mg night Josue Thomas 03/14/2018 Tablets Carbidopa-Levodopa ER take 1 pill 90tabs G20 Drew 01/22/2018 - three times at Josue Thomas 03/15/2018 50-200mg Tablets ER day at 6am, 12 at night and 6 at night Carbidopa-Levodopa 1 po four times 120tabs G47.33 Ck Bruno 01/11/2018 - a day Josue Alaniz 01/22/2018 25-100mg Tablets Carbidopa-Levodopa ER take 1 pill bu 90tabs Drew 12/04/2017 - mouth three Josue Thomas 01/11/2018 50-200mg Tablets ER times a day at 6am, 12pm and 6 pm Voltaren apply 2 grams of 300gm M79.672 John Dyer NP 07/11/2016 - 1% Gel gel twice daily 04/09/2017 to the affected area. Azithromycin two tabs day 6tabs J20.9 Kusum Bermudez, 05/18/2016 - 250mg one, one daily N.P. 05/28/2016 Tablets till gone Cheratussin ac 2 teaspoons by 120ml J20.9 Kusum Bermudez, 05/18/2016 - mouth every 4 N.P. 07/11/2016 100-10mg/5ML Syrup hours as needed Dyazide 1 by mouth daily 30caps Geraldo Cruz 04/08/2016 - 37.5-25mg 3 days per week Josue Saab 12/28/2016 Capsules Benzonatate 1-2 tab by mouth 30caps J06.9 Geraldo Cruz 03/10/2016 - 100mg three times a Josue Saab 04/07/2016 Capsules day as needed Ropinirole HCL 4 po tid Ck Bruno 06/01/2015 - 1mg Josue Alaniz 11/23/2015 Tablets Carbidopa-Levodopa 1 po 4x a day 270tabs Ck Bruno 06/01/2015 - Josue Alaniz 12/04/2017 25-100mg Tablets Ropinirole HCL 1 tab by mouth Geraldo Cruz 04/21/2015 - 2mg tid Josue Saab 06/01/2015 Tablets Ropinirole HCL 1 po tid 360tabs Geraldo Cruz 03/01/2015 - 0.5mg Josue Saab 04/21/2015 Tablets Nitrostat one sl q5min up 25tabs Geraldo Cruz 12/02/2014 - 0.4mg Tablets to 3 doses as Josue Saab 12/28/2016 Sub needed Amantadine HCL 25 mg/2.5 ml at 150ml Ck Bruno 11/18/2014 - 50mg/5ML 8 Am and at harry Alaniz M.D. 02/09/2015 Syrup pt states this is on hold Carbidopa-Levodopa 1/2 tab by mouth 270tabs Ck Bruno 09/24/2013 - six times every Josue Alaniz 02/09/2015 25-100mg Tablets day Pravastatin Sodium 1 tablet by 90tabs 272.0 Geraldo Cruz 06/23/2013 - 20mg mouth once daily Josue Saab 06/11/2013 Tablets at bedtime Amantadine HCL 50 mg/5 ml at 350units Ck Bruno 10/02/2012 - 50mg/5ML harry Alaniz M.D. 05/06/2013 Syrup Amantadine HCL 1 by mouth every 90caps Melia Shell NP 07/16/2012 - 100mg morning on hold 09/30/2014 Capsules as of 08/24/14 Nasonex 2 sprays to each 1units Nahun Holder 05/30/2012 - 50mcg/Act nostril twice Josue Clay 08/31/2014 Suspension daily prn Asmanex 30 Metered 1 puffs daily in 30units R06.00 Geraldo Cruz 02/21/2012 - Doses the evening Josue Saab 03/01/2015 110mcg/Inh Aerosol Sulfamethoxazole/Trim 1 po bid 20tabs 599.0 Geraldo Cruz 07/17/2011 - ethoprim DS Josue Saab 12/20/2011 800-160mg Tablets Androderm apply 1 patch 30units 780.79 Geraldo Cruz 06/20/2011 - 2mg/24HR daily; replace Josue Saab 12/20/2011 Patches 24HR after 24 hours code f Cipro 1 po bid 28tabs 601.1 Jason 12/06/2010 - 500mg Tablets Josue Trinidad 04/19/2011 Septra DS 1 po bid 20tabs 604.90 Geraldo Cruz 11/25/2009 - 800-160mg Josue Saab 01/12/2010 Tablets Ibuprofen 1 po tid prn 90tabs Geraldo Cruz 05/03/2009 - 600mg Tablets Josue Saab 04/07/2016 Amoxicillin 1 po tid for 10 30tabs Geraldo Cruz 12/20/2007 - 500mg days Josue Saab 01/23/2008 Tablets OTC Hemmroid Cream As needed Geraldo Cruz 11/27/2007 - Josue Saab 05/19/2018 Liz 1 po qd prn 30tabs Geraldo Cruz 06/20/2007 - 180mg Tablets Josue Saab 01/05/2014 Physical Therapy PT evaluation Geraldo Cruz 04/03/2007 - and treatment Josue Saab 01/12/2010 for neck pains Amoxicillin Unknown - 500mg 07/09/2018 Capsules Glucosamine 1 by mouthd Unknown - Chondroitin 1500 daily 03/14/2018 Complex 1500Com Capsules Glucosamine 1 by mouth daily Unknown - Chondroitin 1500 03/15/2018 Complex 1500Com Capsules Melatonin 1 tablet at bed G47.33 Unknown - 5mg Capsules time 01/22/2018 Aspirin Ec Low Dose 1 by mouth every Unknown - day 03/10/[address] Siegel apply once daily Unknown - 2mg/24HR Patches at 6 am 03/10/2016 24HR Sinemet 1/2 po bid Unknown - 25-100mg 06/01/2015 Tablets Metamucil as needed Unknown - 28.3% Powder 02/09/2015 Prozac 1 by mouth every Unknown - 10mg Capsules day 06/01/2015 Melatonin 1 by mouth Unknown - 5mg Capsules every night at 12/28/2016 bedtime Triamcinolone apply twice a Unknown - Acetonide And day until clear 07/09/2018 Nystatin as needed 0.1% Cream Ducosate Sodium 1 tab by mouth Unknown - 100mg at 6pm and one 05/19/2018 Tablets at bedtime Ciclopirox Olamine apply to penis 30gm Unknown - qd as needed 07/09/2018 0.77% Cream Nystatin topically bid 60g Unknown - [id number] prn 01/28/2016 Cream Metamucil Original po with liquid Unknown - Texture qhs 12/02/2014 Powder Cortisone Cream topical, as Unknown - needed 05/19/2018 Proctosol HC Apply bid prn 60gm Javier Lozada MD - 2.5% Cream 12/17/2008 Kenalog Apply bid prn 60GM Javier Lozada MD - 0.1% Cream Eczema 12/17/2008 Multivitamins 1 PO qd 90tabs Unknown - Tablets 02/21/2012 Vitamin C 1 PO qd Katiana GR, - 500mg Tablets Geraldo Cruz MD 07/17/2011 Ecotrin Regular 1 PO qd Unknown - Strength 06/19/2018 81mg Tablets Medications Administered in Office Medication SIG Qnty Indications Ordering Provider Date Influenza Virus Vaccine Geraldo Saab M.D. 11/24/2014 Injection Influenza Virus Vaccine Unknown 12/24/2013 Injection Immunizations CPT Code Status Date Vaccine Lot # [id number] Given 12/11/2017 Fluzone High Dose 89837 Given 01/14/2016 Fluzone High Dose 17965 Given 08/31/2014 Tdap - Tetanus/Diptheria/Acellular Pertussis [id number] 13313 Given 08/31/2014 Pneumococcal Conjugate Vaccine 13 Valent For [id number] Intramuscular Use 06305 Given 07/28/2010 Pneumonia Vaccine [id number] 81839 Given 01/14/2009 Influenza Virus 3Yrs & Over 36703 Given 09/07/2008 Zoster (Zostavax) 66489 Given 01/01/2008 Influenza Virus 3Yrs & Over 87685 Given 07/13/2004 Td (History By Patient) Vital Signs Date Vital Result Comment 07/26/2018 12:28pm Height 70 inches 5'10" Weight 175.00 lb Heart Rate 58 /min BP Systolic 140 mmHg BP Diastolic 90 mmHg BMI (Body Mass Index) 25.1 kg/m2 07/12/2018 3:02pm Height 70 inches 5'10" Heart Rate 64 /min BP Systolic 130 mmHg BP Diastolic 88 mmHg Respiratory Rate 18 /min Pain Level 4 07/11/2018 4:11pm Height 70 inches 5'10" Weight 185.00 lb Heart Rate 77 /min BP Systolic Sitting 112 mmHg BP Diastolic Sitting 80 mmHg Respiratory Rate 17 /min BMI (Body Mass Index) 26.5 kg/m2 07/10/2018 3:05pm Height 70 inches 5'10" Weight 185.00 lb With clothes/shoes Heart Rate 74 /min Radial BP Systolic Sitting 128 mmHg Lue reg cuff BP Diastolic Sitting 60 mmHg Lue reg cuff O2 % BldC Oximetry 98 % Ra BMI (Body Mass Index) 26.5 kg/m2 Ejection Fraction 60-65% Echo 07/10/2017 06/25/2018 3:19pm Height 70 inches 5'10" Weight 189.00 lb Heart Rate 68 /min BP Systolic 112 mmHg BP Diastolic 68 mmHg BMI (Body Mass Index) 27.1 kg/m2 06/24/2018 11:47am Height 70 inches 5'10" Weight 191.00 lb Heart Rate 60 /min Respiratory Rate 18 /min Body Temperature 97.8 F Pain Level 5 BMI (Body Mass Index) 27.4 kg/m2 06/12/2018 1:20pm Height 70 inches 5'10" Weight [...] Date Facility Test Result H/L Range Note CBC Auto Diff 06/18/2018 [facility] White Blood 9.7 10^3/uL N 3.5-10.[address] [place] [address] [phone] Red Blood Count 4.16 10^6/uL Low 4.18-5.48 Hemoglobin 13.9 g/dL Low 14.0-18.0 Hematocrit 41 % N 36-46 Mean Corpuscular Volume 98 fL High 80-94 Mean Corpuscular Hemoglobin 33 pg High 27-31 Mean Corpuscular HGB Conc 34 g/dL N 31-36 Red Cell Distribution Width 13 % N 10.5-15 Platelet Count 197 10^3/uL N 150-450 Mean Platelet Volume 8.8 fL N 7.4-10.4 Abs Neutrophils 7.9 10^3/uL High 1.5-7.7 Abs Lymphocytes 0.9 10^3/uL Low 1.0-4.8 Abs Monocytes 0.8 10^3/uL N 0-0.8 Abs Eosinophils 0 10^3/uL N 0-0.6 Abs Basophils 0 10^3/uL N 0-0.2 Abs Nucleated RBC 0 10^3/uL Granulocyte % 82.2 % Lymphocyte % 9.0 % Monocyte % 8.0 % Eosinophil % 0.3 % Basophil % 0.5 % Nucleated Red Blood Cells % 0.1 Inr/Protime 06/18/2018 [facility] Inr 0.97 N 0.77-1.[address] [place] [address] [phone] Laboratory test 06/18/2018 [facility] Partial 27.7 seconds N 26.0-36.[address] [place] [address] PTT [phone] Laboratory test 06/18/2018 [facility] Creatine 57 U/L N 10- 223 finding [address] [facility] Kinase(CK) [place] [address] [phone] Comp Metabolic 06/18/2018 [facility] Sodium 137 mmol/L N 135- [address] [place] [address] [phone] Potassium 4.1 mmol/L N 3.5-5.0 Chloride 106 mmol/L N 101-111 Co2 Carbon Dioxide 29 mmol/L N 22-32 Anion Gap 2 mmol/L N 2-11 Glucose 117 mg/dL High 70-100 Blood Urea Nitrogen 21 mg/dL N 6-24 Creatinine 0.66 mg/dL Low 0.67-1.17 BUN/Creatinine Ratio 31.8 High 8-20 Calcium 8.9 mg/dL N 8.6-10.3 Total Protein 6.0 g/dL Low 6.4-8.9 Albumin 3.9 g/dL N 3.2-5.2 Globulin 2.1 g/dL N 2-4 Albumin/Globulin Ratio 1.9 N 1-3 Total Bilirubin 1.10 mg/dL High 0.2-1.0 Alkaline Phosphatase 78 U/L N 34-104 Alt 4 U/L Low 7-52 Ast 13 U/L N 13-39 Egfr Non- 118.3 >60 Egfr 143.2 >60 1 CBC Auto Diff 06/07/2018 [facility] White Blood 7.5 10^3/uL N 3.5-10.[address] [place] [address] [phone] Red Blood Count 4.02 10^6/uL Low 4.18-5.48 [...] Blood Cells % 0.1 Laboratory test 06/07/2018 [facility] Lactic Acid 0.7 mmol/L N 0.5-2.0 [address] [place] [address] [phone] Comp Metabolic 06/07/2018 [facility] Sodium 138 mmol/L N 135- [address] [place] [address] [phone] Potassium 4.1 mmol/L N 3.5-5.0 Chloride 106 [...] Egfr 111.4 >60 3 Urinalysis Profile 06/07/2018 [facility] Urine Color Yellow [address] [place] [address] [phone] Urine Appearance Clear Urine Specific [place] 1.026 N 1.010-1.030 Urine pH 5.0 N 5-9 Urine Urobilinogen Negative Negative Urine Ketones Trace Abnormal Negative Urine Protein Negative Negative Urine Leukocytes Negative Negative Urine Blood Negative Negative * * Abnormal Negative 4 Urine Nitrite Negative Negative Urine Bilirubin Negative Negative Urine Glucose Negative Negative Laboratory test 06/07/2018 [facility] Point of Care 130 mg/dL High 70-100 5 finding [address] [facility] [place] [place] [address] [phone] Comp Metabolic 05/20/2018 [facility] Sodium 140 mmol/L N 135- 145 Panel [address] [place] [address] [phone] Potassium 4.6 mmol/L N 3.5-5.0 Chloride 104 [...] Egfr Non- 67.0 >60 Egfr 81.1 >60 6 CBC Auto Diff 05/20/2018 [facility] White Blood 6.4 10^3/uL N 3.5-10.[address] [place] [address] [phone] Red Blood Count 4.28 10^6/uL N 4.00-5.40 [...] Blood Cells % 0 Laboratory test 05/20/2018 [facility] Magnesium 2.2 mg/dL N 1.9-2.[address] [place] [address] [phone] Cortisol 8.10 g/dL 7 B-Type Natriuretic Peptide BNP 32 pg/mL <=100 Inr/Protime 02/10/2018 [facility] Inr 0.95 N 0.77-1.02 [address] [place] [address] [phone] Urinalysis Profile 02/10/2018 [facility] Urine Color Yellow [address] [place] [address] [phone] Urine Appearance Clear Urine Specific [place] 1.020 N 1.010-1.030 Urine pH 6.0 N 5-9 Urine Urobilinogen Negative Negative Urine Ketones Trace Abnormal Negative Urine Protein Negative Negative Urine Leukocytes Negative Negative Urine Blood Negative Negative * * Abnormal Negative 8 Urine Nitrite Negative Negative Urine Bilirubin Negative Negative Urine Glucose Negative Negative CBC Auto Diff 02/10/2018 [facility] White Blood 5.8 10^3/uL N 3.5-10.[address] [place] [address] [phone] Red Blood Count 4.67 10^6/uL N 4.00-5.40 [...] Blood Cells % 0 Laboratory test 02/10/2018 [facility] Lactic Acid 0.8 mmol/L N 0.5-2.0 9 finding [address] [place] [address] [phone] Comp Metabolic 02/10/2018 [facility] Sodium 138 mmol/L N 135- [address] [place] [address] [phone] Potassium 4.7 mmol/L N 3.5-5.0 Chloride 101 [...] Egfr Non- 78.7 >60 Egfr 95.2 >60 10 Laboratory test 02/10/2018 [facility] Magnesium 2.0 mg/dL N 1.9-2.[address] [place] [address] [phone] C Reactive Protein < 1.00 mg/L N <8.01 Troponin-I (TnI) 0.00 ng/mL <0.04 TSH (Thyroid Stim Horm) 1.44 mcIU/mL N 0.34-5.60 CBC Auto Diff 07/31/2017 [facility] White Blood 5.7 10^3/uL N 3.5-10.[address] [place] [address] [phone] Red Blood Count 4.22 10^6/uL N 4.0-5.4 [...] Cells % 0.1 Comp Metabolic Panel 07/31/2017 [facility] Sodium 139 mmol/L N 139-[address] [place] [address] [phone] Potassium 4.7 mmol/L N 3.5-5.0 Chloride 102 [...] Egfr Non- 92.4 >60 Egfr 118.8 >60 11 Laboratory test 07/31/2017 [facility] Magnesium 1.9 mg/dL N 1.9-2.[address] [place] [address] [phone] TSH (Thyroid Stim Horm) 1.83 mcIU/mL N 0.34-5.60 B-Type Natriuretic Peptide BNP 34 pg/mL 12 Laboratory test finding 06/21/2017 [facility] Magnesium <pending > [address] [place] [address] [phone] TSH (Thyroid Stim Horm) <pending> Laboratory 06/21/2017 [facility] B-Type <pending> test finding [address] [address] Peptide BNP [phone] Laboratory 05/02/2017 [facility] Rapid Strep Negative Negative 13 test finding [address] [place] [address] [phone] Lipid Profile 04/04/2017 [facility] Triglycerides 37 mg/dL 14 (Trig/Chol/HDL [address] ) [place] [address] [phone] Cholesterol 160 mg/dL 15 HDL Cholesterol 72.1 mg/dL 16 LDL Cholesterol 81 mg/dL 17 Laboratory test 04/04/2017 [facility] PSA 3.049 ng/mL 0-4.0 [address] [place] [address] [phone] Urine Culture And 10/07/2016 [facility] Urine SEE RESULT 19 , Sensitivities [address] Culture BELOW 20 [place] [address] [phone] Poc Urinalysis 10/07/2016 [facility] Poc Glucose, Negative N Negative [address] [place] [address] [phone] Poc Bilirubin, Urine Negative N Negative Poc Ketone, Urine Negative N Negative Poc Specific [place], Urine 1.025 N 1.010-1.030 Poc Blood, Urine Trace-intact Abnormal Negative Poc pH, Urine 6.0 N 5-9 Poc Protein, Urine Negative N Negative Poc Urobilinogen, Urine 0.2 N Negative Poc Nitrite, Urine Negative N Negative Poc Leukocytes, Urine Trace Abnormal Negative Poc Color, Urine Yellow N Poc Clarity, Urine Slightly Cloudy N 21 Laboratory test 04/07/2016 [facility] B-Type Natriuretic 50 pg/ mL N [address] [place] [address] [phone] TSH (Thyroid Stim Horm) 1.79 mcIU/mL N 0.34-5.60 Magnesium 1.8 mg/dL Low 1.9-2.7 Basic Metabolic Panel 04/07/2016 [facility] Sodium 139 mmol/L N 133-145 [address] [place] [address] [phone] Potassium 4.3 mmol/L N 3.5-5.0 Chloride 103 mmol/L N 101-111 Co2 Carbon Dioxide 31 mmol/L N 22-32 Anion Gap 5 mmol/L N 2-11 Glucose 90 mg/dL N 70-100 Blood Urea Nitrogen 17 mg/dL N 6-24 Creatinine 0.80 mg/dL N 0.67-1.17 BUN/Creatinine Ratio 21.3 High 8-20 Calcium 9.0 mg/dL N 8.6-10.3 Egfr Non- 95.3 N >60 Egfr 122.6 N >60 23 Lipid Profile 04/01/2016 [facility] Triglycerides 44 mg/dL N 24 (Trig/Chol/HDL) [address] [place] [address] [phone] Cholesterol 169 mg/dL N 25 HDL Cholesterol 71.6 mg/dL N 26 LDL Cholesterol 89 mg/dL N 27 Basic Metabolic Panel 01/21/2016 [facility] Sodium 140 mmol/L N 133-145 [address] [place] [address] [phone] Potassium 4.6 mmol/L N 3.5-5.0 Chloride 105 mmol/L N 101-111 Co2 Carbon Dioxide 31 mmol/L N 22-32 Anion Gap 4 mmol/L N 2-11 Glucose 87 mg/dL N 70-100 Blood Urea Nitrogen 20 mg/dL N 6-24 Creatinine 0.76 mg/dL N 0.67-1.17 BUN/Creatinine Ratio 26.3 High 8-20 Calcium 9.3 mg/dL N 8.6-10.3 Egfr Non- 101.1 N >60 Egfr 130.0 N >60 28 CBC Auto Diff 01/21/2016 [facility] White Blood 6.0 10^3/uL N 3.5-10.[address] [place] [address] [phone] Red Blood Count 4.41 10^6/uL N 4.0-5.4 [...] Cells % 0 N Urinalysis Profile 01/21/2016 [facility] Urine Color Yellow [address] [place] [address] [phone] Urine Appearance Cloudy N Urine Specific [place] 1.023 N 1.010-1.030 Urine pH 5.0 N 5-9 Urine Urobilinogen Negative N Negative Urine Ketones Negative N Negative Urine Protein Negative N Negative Urine Leukocytes Negative N Negative Urine Blood Negative N Negative * * Abnormal Negative 29 Urine Nitrite Negative N Negative Urine Bilirubin Negative N Negative Urine Glucose Negative N Negative Inr/Protime 01/21/2016 [facility] Inr 0.98 N 0.89-1.[address] [place] [address] [phone] Laboratory test 01/21/2016 [facility] Partial 31.6 seconds N 26.0-36.[address] [place] [address] PTT [phone] CBC Auto Diff 12/25/2015 [facility] White Blood 6.0 10^3/uL N 3.5-10.[address] [place] [address] [phone] Red Blood Count 4.45 10^6/uL N 4.0-5.4 [...] Cells % 0.1 N Laboratory test 12/25/2015 [facility] B-Type 78 pg/mL N [address] [place] [address] Peptide BNP [phone] Inr/Protime 12/25/2015 [facility] Inr 1.00 N 0.89- [address] 1.11 [place] [address] [phone] Laboratory test 12/25/2015 [facility] Partial Thrombo 31.1 seconds N 26.0- finding [address] Time PTT 36.3 [place] [address] [phone] Lactic Acid 0.8 mmol/L N 0.5-2.0 31 Comp Metabolic Panel 12/25/2015 [facility] Sodium 137 mmol/L N 133-[address] [place] [address] [phone] Potassium 4.1 mmol/L N 3.5-5.0 Chloride 102 [...] 97.0 N >60 Egfr 124.7 N >60 32 Laboratory test 12/25/2015 [facility] Magnesium 1.8 mg/dL Low 1.9-2.7 finding [address] [place] [address] [phone] Lipase 7 U/L Low 11.0-82.0 Creatine Kinase(CK) 58 U/L N 10-223 C Reactive Protein < 1.00 mg/L N < 5.00 33 Troponin-I (TnI) 0.00 ng/mL N <0.03 34 CKMB 12/25/2015 [facility] CKMB ng/mL 2.1 ng/mL N 0.6-6.[address] [place] [address] [phone] Laboratory test 12/25/2015 [facility] TSH (Thyroid 1.77 N 0.34 -5.[address] Stim Horm) mcIU/[place] [address] [phone] Laboratory test 02/03/2015 [facility] PSA Diagnostic 2.347 N 0 -4.[address] ng/[place] [address] [phone] Laboratory test 12/03/2014 [facility] Troponin-I 0.00 N <0.03 36, [address] (TnI) ng/[place] [address] [phone] Magnesium 1.9 mg/dL N 1.9-2.7 38 Basic Metabolic Panel 12/03/2014 [facility] Sodium 139 mmol/L N 133-[address] [place] [address] [phone] Potassium 4.0 mmol/L N 3.5-5.0 Chloride 101 mmol/L N 101-111 Co2 Carbon Dioxide 34 mmol/L High 22-32 Anion Gap 4 mmol/L N 2-11 Glucose 91 mg/dL N 70-100 Blood Urea Nitrogen 16 mg/dL N 6-24 Creatinine 0.80 mg/dL N 0.67-1.17 BUN/Creatinine Ratio 20.0 N 8-20 Calcium 9.2 mg/dL N 8.6-10.3 Egfr Non- 95.8 N >60 Egfr 123.3 N >60 39 Iron & Iron Binding 09/09/2014 [facility] Iron 75 g/dL N 50- 212 [address] [place] [address] [phone] Unsaturated Iron Binding 260 g/dL N Total Iron Binding Capacity 335 g/dL N 250-450 % Iron Saturation 22 % N 15-55 Laboratory test 09/09/2014 [facility] Creatine 61 U/L N 10- 223 40 finding [address] [facility] Kinase(CK) [place] [address] [phone] Lipid Profile 09/09/2014 [facility] Triglycerides 39 mg/dL N 41 (Trig/Chol/HDL) [address] [place] [address] [phone] Cholesterol 148 mg/dL N 42 HDL Cholesterol 67.3 mg/dL N 43 LDL Cholesterol 73 mg/dL N 44 Comp Metabolic Panel 09/09/2014 [facility] Sodium 140 mmol/L N 133-145 [address] [place] [address] [phone] Potassium 4.2 mmol/L N 3.5-5.0 Chloride 105 [...] 93.2 N >60 Egfr 119.8 N >60 45 Laboratory test 09/09/2014 [facility] B-Type 17 pg/mL N [address] [place] [address] Peptide BNP [phone] CBC Auto Diff 09/09/2014 [facility] White Blood 4.4 Low 4.8-[address] Count 10^3/uL 0.8 [place], [place] [id number] [phone] Red Blood Count 4.67 10^6/uL N 4.0-5.4 [...] Red Blood Cells % 0 N Laboratory 09/09/2014 [facility] TSH (Thyroid Stim 1.44 N 0.34 -5.60 47 test finding [address] Horm) ?IU/mL [place], [place] [id number] [phone] Lipid Profile 12/31/2013 [facility] Triglycerides 51 mg/dL N 48 (Trig/Chol/HDL [address] ) [place] [address] [phone] Cholesterol 156 mg/dL N 49 HDL Cholesterol 73.3 mg/dL N 50 LDL Cholesterol 73 mg/dL N 51 Laboratory test finding 12/31/2013 [facility] Glucose 93 mg/dL N 70-[address] [place] [address] [phone] Hemoglobin A1c 5.5 % N Less than 6.0 52 Comp Metabolic Panel 12/31/2013 [facility] Sodium 139 mmol/L N 133-[address] [place] [address] [phone] Potassium 4.2 mmol/L N 3.7-5.6 Chloride 105 [...] 99.0 N >60 Egfr 127.3 N >60 53 Laboratory test 06/23/2013 [facility] Hemoglobin A1c 5.4 5-7 finding Laboratory test 09/25/2012 [facility] PSA Screening 2.72 ng/mL 0-4.0 [address] [place] [address] [phone] Lipid Profile 07/05/2012 [facility] Triglycerides 43 mg/dL 40 -200 (Trig/Chol/HDL) [address] [place] [address] [phone] Cholesterol 172 mg/dL Less than 200 HDL Cholesterol 70 mg/dL High 40-60 55 Cholesterol/HDL Ratio 2.5 Average 1-4.44 LDL Cholesterol 93.4 mg/dL Less Than 100 56 Comp Metabolic Panel 07/05/2012 [facility] Sodium 139 mmol/L 133-[address] [place] [address] [phone] Potassium 4.3 mmol/L 3.5-5.0 Chloride 103 mmol/L [...] Egfr Non- 74.5 >60 Egfr 95.9 >60 57 Laboratory test 07/05/2012 [facility] Creatine 76 U/L 0-200 [address] [place] [address] [phone] CBC Auto Diff 07/05/2012 [facility] White Blood 5.0 4.8-10.[address] Count 10^3/[place] [address] [phone] Red Blood Count 4.50 10^6/uL 4.0-5.4 Hemoglobin [...] Blood Cells % 0 Laboratory test 07/05/2012 [facility] TSH (Thyroid 1.79 0.34- 5.60 [address] Stimulating miu/[place] [address] Horm) [phone] Laboratory test 03/27/2012 [facility] PSA Screening 2.85 ng/mL 0-4.0 [address] [place] [address] [phone] Laboratory test 11/24/2011 [facility] Vitamin B12 303 pg/mL [phone] [place] [address] [phone] TSH 1.34 MIU/ML 0.34-5.60 Lipid Profile 10/26/2011 [facility] Triglyceride 33 mg/dL Low 40-200 (Trig/Chol/HDL) [address] [place] [address] [phone] Cholesterol 165 mg/dL Less Than 200 61 High Density Lipoprotein 68 mg/dL High 40-60 62 Cholesterol/HDL Ratio 2.43 AVERAGE 1-4.97 Low Density Lipoprotein 90 mg/dL Less Than 100 63 CBC With Manual 10/26/2011 [facility] White Blood 4.6 CUMM Low 4.8-10.[address] [place] [address] [phone] Red Cell Count 4.13 CUMM Low 4.6-6.2 [...] 0-2 Anisocytosis SLIGHT Macrocytosis FEW Laboratory test 10/26/2011 [facility] BNP Evaluatr 42.0 pg/mL 0-[address] [place] [address] [phone] Comp Metabolic 10/26/2011 [facility] Sodium 138 mmol/L 135- [address] [place] [address] [phone] Potassium 4.3 mmol/L 3.5-5.0 Chloride 105 mmol/L 101-111 Co2 (Carbon Dioxide) 28.0 mmol/L 22-32 Anion Gap 5.0 mmol/L 2-11 64 Glucose 102 mg/dL High 70-100 BUN 15 mg/dL 6-24 Creatinine 0.8 mg/dL 0.50-1.40 One Over Creatinine 1.25 BUN/Creatinine Ratio 18.8 8-20 Calcium 9.1 mg/dL 8.1-9.9 Total Protein 5.5 GM/DL Low 6.2-8.1 Albumin 3.7 GM/DL 3.2-5.2 Globulin 1.8 GM/DL Low 2-4 Albumin/Globulin Ratio 2.1 1-3 Bilirubin Total 1.3 mg/dL 0.4-1.5 65 Alkaline Phosphatase 48 U/L 39-117 Alt (SGPT) 14 U/L Low 17-63 Ast (Sgot) 16 U/L 12-42 eGFR Non- 96.7 > 60 eGFR 124.4 > 60 66 Laboratory 09/21/2011 [facility] PSA,Diagnostic 3.63 0-4 67 test finding [address] NG/[place] [address] [phone] Laboratory 07/17/2011 [facility] PSA,Diagnostic 13.31 High 0- 4 68 test finding [address] NG/[place] [address] [phone] Urine Culture 07/17/2011 [facility] M --------- 69 & Sensitivi [address] ------- [place] [address] <SEE [phone] NOTE> Laboratory 07/17/2011 [facility] Hemoglobin A1c 5.5 5-7 test finding CBC Auto Diff 06/13/2011 [facility] White Blood Count 5.8 CUMM 4.8-10. [address] [place] [address] [phone] Red Cell Count 4.41 CUMM Low 4.6-6.2 [...] Basophils 0 0-0.2 Comp Metabolic Panel 06/13/2011 [facility] Sodium 140 mmol/L 135-[address] [place] [address] [phone] Potassium 4.8 mmol/L 3.5-5.0 Chloride 106 mmol/L 101-111 Co2 (Carbon Dioxide) 27.0 mmol/L 22-32 Anion Gap 7.0 mmol/L 2-11 70 Glucose 97 mg/dL 70-100 BUN 14 mg/dL 6-24 Creatinine 0.9 mg/dL 0.50-1.40 One Over Creatinine 1.11 BUN/Creatinine Ratio 15.6 8-20 Calcium 9.4 mg/dL 8.1-9.9 Total Protein 6.2 GM/DL 6.2-8.1 Albumin 4.1 GM/DL 3.2-5.2 Globulin 2.1 GM/DL 2-4 Albumin/Globulin Ratio 2.0 1-3 Bilirubin Total 1.7 mg/dL High 0.4-1.5 71 Alkaline Phosphatase 50 U/L 39-117 Alt (SGPT) 14 U/L Low 17-63 Ast (Sgot) 18 U/L 12-42 eGFR Non- 84.4 > 60 eGFR 108.6 > 60 72 Laboratory test 06/13/2011 [facility] Erythrocyte Sed 5 MM/HR 0-[address] [place] [address] [phone] Rheumatoid Factor < 15 IU/mL <15 73 Pattie (Antinuclear 06/13/2011 [facility] Antinuclear AB NEGATIVE Negative Antibodies) [address] [place] [address] [phone] Laboratory test 06/13/2011 [facility] C Reactive < 0.5 mg/dL Less Than finding [address] Protein 0.5 [place] [address] [phone] Thyroxine Free 0.87 ng/dL 0.61-1.24 TSH 1.33 MIU/ML 0.34-5.60 Lyme Disease Serology Negative Negative 74 Testosterone 06/13/2011 [facility] Free 6.2 Abnormal 9-30 75 Free & Total [address] DR[address] Testosterone ng/[place] [address] [phone] Total Testosterone 327 ng/dL 240-950 76 Laboratory test 05/15/2011 [facility] PSA,Diagnostic 2.96 NG/ML 0-[address] [place] [address] [phone] Laboratory test 02/15/2011 [facility] PSA,Diagnostic 3.17 NG/ML 0-4 [address] [place] [address] [phone] Laboratory test 12/27/2010 [facility] PSA,Diagnostic 9.59 NG/ML High 0-4 [address] [place] [address] [phone] Laboratory test 12/07/2010 [facility] PSA,Diagnostic 50.49 High 0-4 [address] NG/[place] [address] [phone] DR [facility] 09/05/2010 [facility] TSH 2.08 0.34-5. Panel [address] MIU/ML 60 [place] [address] [phone] Comp Metabolic 09/05/2010 [facility] Sodium 138 mmol/L 135- [address] [place] [address] [phone] Potassium 4.4 mmol/L 3.5-5.0 Chloride 105 mmol/L 101-111 Co2 (Carbon Dioxide) 29.0 mmol/L 22-32 Anion Gap 4.0 mmol/L 2-11 81 Glucose 98 mg/dL 70-100 BUN 18 mg/dL 6-24 Creatinine 0.80 mg/dL 0.50-1.40 One Over Creatinine 1.20 BUN/Creatinine Ratio 22.5 High 8-20 Calcium 8.9 mg/dL 8.1-9.9 Total Protein 6.1 GM/DL Low 6.2-8.1 Albumin 3.9 GM/DL 3.2-5.2 Globulin 2.2 GM/DL 2-4 Albumin/Globulin Ratio 1.8 1-3 Bilirubin Total 1.2 mg/dL 0.4-1.5 82 Alkaline Phosphatase 47 U/L 39-117 Alt (SGPT) 15 U/L Low 17-63 Ast (Sgot) 19 U/L 12-42 eGFR Non- 97.0 > 60 eGFR 124.8 > 60 83 Lipid Profile 09/05/2010 [facility] Triglyceride 42 mg/dL 40- 200 (Trig/Chol/HDL) [address] [place] [address] [phone] Cholesterol 176 mg/dL Less Than 200 84 High Density Lipoprotein 68 mg/dL High 40-60 85 Cholesterol/HDL Ratio 2.59 AVERAGE 1-4.97 Low Density Lipoprotein 100 mg/dL Less Than 100 86 CBC Auto Diff 09/05/2010 [facility] White Blood 5.0 CUMM 4.8- 10.[address] [place] [address] [phone] Red Cell Count 4.33 CUMM Low 4.6-6.2 [...] Abs Basophils 0 0-0.2 CBC With 09/01/2009 [facility] White Blood 5.4 CUMM 4.8-10.8 Electronic Diff [address] [place] [address] [phone] Red Cell Count 4.47 CUMM Low 4.6-6.2 [...] Abs Basophils 0 0-0.2 Lipid Profile 09/01/2009 [facility] Triglyceride 47 mg/dL 40- 200 (Trig/Chol/HDL) [address] [place] [address] [phone] Cholesterol 170 mg/dL Less Than 200 87 High Density Lipoprotein 63 mg/dL High 40-60 88 Cholesterol/HDL Ratio 2.70 AVERAGE 1-4.97 Low Density Lipoprotein 98 mg/dL Less Than 100 89 Comp Metabolic Panel 09/01/2009 [facility] Sodium 135 mmol/L 135-[address] [place] [address] [phone] Potassium 4.7 mmol/L 3.5-5.0 Chloride 103 mmol/L 101-111 Co2 (Carbon Dioxide) 29.0 mmol/L 22-32 Anion Gap 3.0 mmol/L 2-11 90 Glucose 110 mg/dL High 70-100 91 BUN 17 mg/dL 6-24 Creatinine 1.00 mg/dL 0.50-1.40 One Over Creatinine 1.00 BUN/Creatinine Ratio 17.0 8-20 Calcium 8.6 mg/dL 8.1-9.9 92 Total Protein 5.9 GM/DL Low 6.2-8.1 Albumin 4.0 GM/DL 3.2-5.2 Globulin 1.9 GM/DL Low 2-4 Albumin/Globulin Ratio 2.1 1-3 Bilirubin Total 0.9 mg/dL 0.4-1.5 93 Alkaline Phosphatase 69 U/L 39-117 Alt (SGPT) 14 U/L Low 17-63 Ast (Sgot) 19 U/L 12-42 eGFR Non- 80.0 > 60 eGFR 96.7 > [address] [facility] 09/01/2009 [facility] TSH 1.46 0.34-5.[address] MIU/ML [place], [place] [phone] Laboratory test 01/12/2009 [facility] PSA,Diagno 2.00 NG/ML 0 -4 95, [address] [place] [address] [phone] CBC With 08/11/2008 [facility] White 4.6 CUMM Low 4.8-10.8 Electronic Diff [address] [place] [address] Count [phone] Red Cell Count 4.54 CUMM Low 4.6-6.2 [...] Basophils 0 0-0.2 Comp Metabolic Panel 08/11/2008 [facility] Sodium 139 mmol/L 135-145 [address] [place] [address] [phone] Potassium 5.2 mmol/L High 3.5-5.0 Chloride 108 mmol/L 101-111 Co2 (Carbon Dioxide) 30.0 mmol/L 22-32 Anion Gap 1.0 mmol/L Low 2-11 97 Glucose 103 mg/dL High 70-100 98 BUN 12 mg/dL 6-24 Creatinine 0.80 mg/dL 0.50-1.40 One Over Creatinine 1.20 BUN/Creatinine Ratio 15.0 8-20 Calcium 9.3 mg/dL 8.1-9.9 99 Total Protein 5.7 GM/DL Low 6.2-8.1 Albumin 3.9 GM/DL 3.2-5.2 Globulin 1.8 GM/DL Low 2-4 Albumin/Globulin Ratio 2.2 1-3 Bilirubin Total 1.2 mg/dL 0.4-1.5 100 Alkaline Phosphatase 54 U/L 39-117 Alt (SGPT) 14 U/L Low 17-63 Ast (Sgot) 19 U/L 12-42 Lipid Profile 08/11/2008 [facility] Triglyceride 24 mg/dL Low 40-200 (Trig/Chol/HDL) [address] [place] [address] [phone] Cholesterol 176 mg/dL Less Than 200 101 High Density Lipoprotein 66 mg/dL High 40-60 102 Cholesterol/HDL Ratio 2.67 AVERAGE 1-4.97 Low Density Lipoprotein 105 mg/dL High Less Than 100 103 Laboratory test 08/11/2008 [facility] TSH 1.07 MIU/ML 0.34- 5.60 finding [address] [place] [address] [phone] Laboratory test 01/01/2008 [facility] PSA,Diagno 1.59 NG/ML 0 -4 104 finding [address] [place] [address] [phone] CBC With 07/10/2007 [facility] White 4.7 CUMM Low 4.8-10.8 Electronic Diff [address] [place] [address] Count [phone] Abs Basophils 0 0-0.2 Abs Eosinophils 0 [...] 14 % 10.5-15 Comp Metabolic Panel 07/10/2007 [facility] One Over Creatinine 1.[address] [place] [address] [phone] Anion Gap -3.0 mmol/L Low 2-11 105 Albumin/Globulin Ratio 1.6 1-3 Albumin 3.7 GM/DL [...] Creatinine 0.9 mg/dL 0.5-1.4 Lipid Profile 07/10/2007 [facility] Cholesterol/HDL 2.87 1- 4.97 (Trig/Chol/HDL) [address] [place] [address] [phone] Cholesterol 172 mg/dL Less Than 200 106 Triglyceride 31 mg/dL Low 40-200 High Density Lipoprotein 60 mg/dL 40-60 107 Low Density Lipoprotein 106 mg/dL High Less Than 100 108 Laboratory test 07/10/2007 [facility] PSA Screening 2.29 NG/ML 0-4 [address] [place] [address] [phone] TSH 1.46 MIU/ML 0.34-5.60 1 Because ethnic [...] 5 Kidney failure <15 (or dialysis) 2 [facility] Severe Sepsis and Septic Shock Management Bundle [...] may interfere with detection of blood. 5 Hematology Nurse Educator: [id number] 6 Because ethnic data is not always [...] 5 Kidney failure <15 (or dialysis) 7 AM 8.7-22.4 PM <10 8 *Ascorbic acid is present which may interfere with detection of blood. 9 [place] Severe Sepsis and Septic Shock Management Bundle Measure requires all lactic acids initially measuring >2.0 mmol/L be repeated. 10 Because ethnic data is not always [...] 5 Kidney failure <15 (or dialysis) 11 Because ethnic data is not always readily [...] 15-29 5 Kidney failure <15 (or dialysis) 12 >100 to <200 pg/mL: likely compensated congestive heart failure (CHF) 200 to 400 pg/mL: likely moderate CHF >400 pg/mL: likely moderate to severe CHF 13 Hematology Nurse Educator: [id number] 14 Desirable: <150 Borderline High: 150-199 High: 200-499 Very High: >500 15 Desirable: <200 Borderline High: 200-239 High: >239 16 Low: <40 Desirable: 40-60 High: >60 17 Desirable: <100 Near Optimal: 100-129 Borderline High: 130-159 High: 160-189 Very High: >189 18 Serum levels of PSA measured using the [employer] DXI Hybritech immunoassay should not be interpreted as absolute evidence of the presence or absence of disease. The PSA value should be used in conjunction with other pertinent clinical diagnostic procedures. The values obtained with different assay methods or kits cannot be used interchangeably. 19 [id number] 20 SEE RESULT BELOW Name: CHRIS WALLIS JR : [address]: Amee Banuelos MD Acct: [id number] Unit: [id number] AGE: 71 Location: [facility] Re10/07/16 SEX: M Status: DEP ER SPEC: [id number] JC: 10/07/16-737 [facility] [address]: Amee Banuelos MD REQ: [id number] RECD: 10/07/16-1440 STATUS: NATANAEL ESCOBAR DR: Geraldo Saab III, MD _ SOURCE: URINE SPDESC: ORDERED: Urine Culture COMMENTS: [id number] Procedure Result Reported Site Urine Culture Final 10/08/16- 1250 ML No Growth (<1,000 CFU/mL) * ML - MAIN LAB ([facility]) . END OF REPORT * ML=Testing performed at Main Lab DEPARTMENT OF PATHOLOGY, [address] [place] [address] Jimmy Prater M.D. Director [facility] # [id number] 21 Hematology Nurse Educator: [id number] 22 >100 to <200 pg/mL: likely compensated congestive heart failure (CHF) 200 to 400 pg/mL: likely moderate CHF >400 pg/mL: likely moderate to severe CHF 23 Because ethnic data is not always readily [...] 15-29 5 Kidney failure <15 (or dialysis) 24 Desirable <150 Borderline high 150-199 High 200-499 Very High >500 25 Desirable <200 Borderline high 200-239 High >239 26 Low <40 Desirable: 40-60 High: >60 27 Desirable: <100 mg/dL Near Optimal: 100-129 mg/dL Borderline High: 130-159 mg/dL High: 160-189 mg/dL Very High: >189 mg/dL 28 Because ethnic data is not always [...] 5 Kidney failure <15 (or dialysis) 29 *Ascorbic acid is present which may interfere with detection of blood. 30 >100 to <200 pg/mL: likely compensated congestive heart failure (CHF) 200 to 400 pg/mL: likely moderate CHF >400 pg/mL: likely moderate to severe CHF 31 [facility] [place] Severe Sepsis and Septic Shock Management Bundle Measure requires all lactic acids initially measuring >2.0 mmol/L be repeated. 32 Because ethnic data is not always [...] 5 Kidney failure <15 (or dialysis) 33 Acute inflammation: >10.00 34 Reference Range and Interpretation: TnI (ng/mL) Interpretation Less Than 0.03 ng/mL Not supportive of diagnosis of ID 0.03 - 0.50 ng/mL Indeterminate: suggest serial studies if clinically indicated. Greater than 0.5 ng/mL Consistent with diagnosis of ID 35 Serum levels of PSA measured using the [employer] DXI Hybritech immunoassay should not be interpreted as absolute evidence of the presence or absence of disease. The PSA value should be used in conjunction with other pertinent clinical diagnostic procedures. The values obtained with different assay methods or kits cannot be used interchangeably. 36 CALL RESULTS TO TODAY [phone] 37 Reference Range and Interpretation: TnI (ng/mL) Interpretation Less Than 0.03 ng/mL Not supportive of diagnosis of ID 0.03 - 0.50 ng/mL Indeterminate: suggest serial studies if clinically indicated. Greater than 0.5 ng/mL Consistent with diagnosis of ID 38 CALL RESULTS TO TODAY [phone] 39 Because ethnic data is not always readily [...] 15-29 5 Kidney failure <15 (or dialysis) 40 FASTING 41 Desirable <150 Borderline high 150-199 High 200-499 Very High >500 42 Desirable <200 Borderline high 200-239 High >239 43 Low <40 Desirable: 40-60 High: >60 44 Desirable: <100 mg/dL Near Optimal: 100-129 mg/dL Borderline High: 130-159 mg/dL High: 160-189 mg/dL Very High: >189 mg/dL 45 Because ethnic data is not always readily [...] 15-29 5 Kidney failure <15 (or dialysis) 46 >100 to <200 pg/mL: likely compensated congestive heart failure (CHF) 200 to 400 pg/mL: likely moderate CHF >400 pg/mL: likely moderate to severe CHF 47 FASTING 48 Desirable <150 Borderline high 150-199 High 200-499 Very High >500 49 Desirable <200 Borderline high 200-239 High >239 50 Low <40 Desirable: 40-60 High: >60 51 Desirable <100 Near Optimal 100-129 Borderline high 130-159 High 160-189 Very High >189 52 Therapeutic target for the treatment of diabetes Mellitus patients is <7% HBA1C, and in selective patients <6.0%.Please refer to [place] [employer] Diabetic care guidelines for further information. 53 Because ethnic data is not always [...] 5 Kidney failure <15 (or dialysis) 54 Serum levels of PSA measured using the [employer] DXI Hybritech immunoassay should not be interpreted as absolute evidence of the presence or absence of disease. The PSA value should be used in conjunction with other pertinent clinical diagnostic procedures. The values obtained with different assay methods or kits cannot be used interchangeably. 55 HDL Interpretation: Undesirable: High Risk: Less than 40 MG/DL Desirable: Low Risk: Greater than 60 MG/DL 56 LDL Interpretation: Low Risk Optimal Level: LDL Less than 100 MG/DL Near or Above Optimal: LDL 100-129 MG/DL Borderline High Risk: LDL 130-159 MG/DL High Risk: LDL 160-189 MG/DL Very High Risk: LDL Greater than 189 MG/DL 57 Because ethnic data is not always readily [...] 15-29 5 Kidney failure <15 (or dialysis) 58 PT IS FASTING 59 PT IS FASTING 60 Serum levels of PSA measured using the [employer] DXI Hybritech immunoassay should not be interpreted as absolute evidence of the presence or absence of disease. The PSA value should be used in conjunction with other pertinent clinical diagnostic procedures. The values obtained with different assay methods or kits cannot be used interchangeably. 61 CHOLESTEROL INTERPRETATION: Desirable: Less than 200 MG/DL Borderline-High Risk: 200-239 MG/DL High-Risk: 240 MG/DL and over 62 HDL INTERPRETATION: Undesirable: High Risk: Less than 40 MG/DL Desirable: Low Risk: Greater than 60 MG/DL 63 LDL INTERPRETATION: Low Risk Optimal Level: LDL Less than 100 MG/DL Near or Above Optimal: LDL 100-129 MG/DL Borderline High Risk: LDL 130-159 MG/DL High Risk: LDL 160-189 MG/DL Very High Risk: LDL Greater than 189 MG/DL 64 Anion gap measurement may be of limited value in the presence of any alkalosis, especially in a combined acid base disorder. . 65 A metabolite of Naproxen, O-desmethylnaproxen, has been shown to interfere with the Jendrassik-[place] method for measuring total bilirubin. Samples from patients who have taken Naproxen have shown spurious elevation in total bilirubin levels. 66 Because ethnic data is not always readily [...] 15-29 5 Kidney failure <15 (or dialysis) 67 * SERUM LEVELS OF PSA MEASURED USING THE [employer] ACCESS HYBRITECH IMMUNOASSAY SHOULD NOT BE INTERPRETED ABSOLUTE EVIDENCE OF THE PRESENCE OR ABSENCE OF DISEASE. THE PSA VALUE SHOULD BE USED IN CONJUNCTION WITH OTHER PERTINENT CLINICAL DIAGNOSTIC PROCEDURES. The values obtained with different assay methods or kits cannot be used interchangeably. 68 * SERUM LEVELS OF PSA MEASURED USING THE [employer] ACCESS HYBRITECH IMMUNOASSAY SHOULD NOT BE INTERPRETED ABSOLUTE EVIDENCE OF THE PRESENCE OR ABSENCE OF DISEASE. THE PSA VALUE SHOULD BE USED IN CONJUNCTION WITH OTHER PERTINENT CLINICAL DIAGNOSTIC PROCEDURES. The values obtained with different assay methods or kits cannot be used interchangeably. 69 RUN DATE: 07/19/11 [facility] NMI LIVE PAGE 1 RUN TIME: 1149 Specimen Inquiry RUN USER: INTERFACE Name: CHRIS WALLIS JR Status: REG REF Re07/17/11 Age/Sex: 66/M Unit#: [id number] Location: [facility] : 45 SPEC #: [id number] JC: 07/17/11 STATUS: COMP REQ #: [id number] RECD: 07/17/[address] [facility] [address] SOURCE: URINE ENTR: 07/17/[address]: [facility]: ORDERED: URINE C S QUERIES: MEDENT REQUISITION # [id number] ACT WKST: UR 07/19/11 #1 Procedure Result [...] *These antibiotics are not available in the [facility] Formulary. Contact the Microbiology Department for any additional antibiotic reporting. - [facility] State Permit #[id number] [address] [place] [address] DEPARTMENT OF PATHOLOGY, [address] [place] [address] [facility] Permit #[id number] Josue Ross M.D. Bezel Cutter 70 Anion gap measurement may be of limited value in the presence of any alkalosis, especially in a combined acid base disorder. . 71 A metabolite of Naproxen, O-desmethylnaproxen, has been shown to interfere with the Jendrassik-Kevin method for measuring total bilirubin. Samples from patients who have taken Naproxen have shown spurious elevation in total bilirubin levels. 72 Because ethnic data is not always readily [...] 15-29 5 Kidney failure <15 (or dialysis) 73 Test Performed by: [facility] D[facility] of Lab Med and Pathology [address] [place] [address] Restaurant Area Director: Kobe Jimenez III, M.D. 74 Serologic response to B. burgdorferi infection is not detected, but cannot rule out early infection during which low or undetectable antibody levels to B. burgdorferi may be present. If clinically indicated, a new serum specimen should be submitted in 7-14 days. Test Performed by: [facility] [address] [place] [address] Restaurant Area Director: Kobe Jimenez III, M.D. 75 Test Performed by: [facility] [address] [place] [address] Restaurant Area Director: Kobe Jimenez III, M.D. 76 Test Performed by: [facility] Path[facility] [address] [place] [address] Restaurant Area Director: Kobe Jimenez III, M.D. 77 * SERUM LEVELS OF PSA MEASURED USING THE [employer] ACCESS HYBRITECH IMMUNOASSAY SHOULD NOT BE INTERPRETED ABSOLUTE EVIDENCE OF THE PRESENCE OR ABSENCE OF DISEASE. THE PSA VALUE SHOULD BE USED IN CONJUNCTION WITH OTHER PERTINENT CLINICAL DIAGNOSTIC PROCEDURES. The values obtained with different assay methods or kits cannot be used interchangeably. 78 * SERUM LEVELS OF PSA MEASURED USING THE [employer] ACCESS HYBRITECH IMMUNOASSAY SHOULD NOT BE INTERPRETED [...] WITH OTHER PERTINENT CLINICAL DIAGNOSTIC PROCEDURES. 80 * SERUM LEVELS OF PSA MEASURED USING THE [employer] ACCESS HYBRITECH IMMUNOASSAY SHOULD NOT BE INTERPRETED ABSOLUTE EVIDENCE OF THE PRESENCE OR ABSENCE OF DISEASE. THE PSA VALUE SHOULD BE USED IN CONJUNCTION WITH OTHER PERTINENT CLINICAL DIAGNOSTIC PROCEDURES. 81 Anion gap measurement may be of limited value in the presence of any alkalosis, especially in a combined acid base disorder. . 82 A metabolite of Naproxen, O-desmethylnaproxen, has been shown to interfere with the Jendrassik-Kevin method for measuring total bilirubin. Samples from patients who have taken Naproxen have shown spurious elevation in total bilirubin levels. 83 Because ethnic data is not always readily [...] 15-29 5 Kidney failure <15 (or dialysis) 84 CHOLESTEROL INTERPRETATION: Desirable: Less than 200 MG/DL Borderline-High Risk: 200-239 MG/DL High-Risk: 240 MG/DL and over 85 HDL INTERPRETATION: Undesirable: High Risk: Less than 40 MG/DL Desirable: Low Risk: Greater than 60 MG/DL 86 LDL INTERPRETATION: Low Risk Optimal Level: LDL Less than 100 MG/DL Near or Above Optimal: LDL 100-129 MG/DL Borderline High Risk: LDL 130-159 MG/DL High Risk: LDL 160-189 MG/DL Very High Risk: LDL Greater than 189 MG/DL 87 CHOLESTEROL INTERPRETATION: Desirable: Less than 200 [...] Risk: LDL Greater than 189 MG/DL 90 Anion gap measurement may be of limited value in the presence of any alkalosis, especially in a combined acid base disorder. . 91 Note change in reference range as of 11/14/07. The change was based on recommendations from the [place] [employer]. 92 Please note change in reference range effective 07 . 93 A metabolite of Naproxen, O-desmethylnaproxen, has been shown to interfere with the Jendrassik-Cokesbury method for measuring total bilirubin. Samples from patients who have taken Naproxen have shown spurious elevation in total bilirubin levels. 94 Because ethnic data is not always readily [...] 15-29 5 Kidney failure <15 (or dialysis) 95 PATIENT MAY HAVE RESULTS PER DOCTOR'S AUTHORIZATION. Questions regarding this report should be directed to your doctor. 96 * SERUM LEVELS OF PSA MEASURED USING THE [employer] ACCESS HYBRITECH IMMUNOASSAY SHOULD NOT BE INTERPRETED ABSOLUTE EVIDENCE OF THE PRESENCE OR ABSENCE OF DISEASE. THE PSA VALUE SHOULD BE USED IN CONJUNCTION WITH OTHER PERTINENT CLINICAL DIAGNOSTIC PROCEDURES. 97 Anion gap measurement may be of limited value in the presence of any alkalosis, especially in a combined acid base disorder. . 98 Note change in reference range as of 11/14/07. The change was based on recommendations from the [place] [employer]. 99 Please note change in reference range effective 07 . 100 A metabolite of Naproxen, O-desmethylnaproxen, has been shown to interfere with the Jendrassik-Kevin method for measuring total bilirubin. Samples from patients who have taken Naproxen have shown spurious elevation in total bilirubin levels. 101 CHOLESTEROL INTERPRETATION: Desirable: Less than 200 [...] SERUM LEVELS OF PSA MEASURED USING THE [employer] ACCESS HYBRITECH IMMUNOASSAY SHOULD NOT BE INTERPRETED ABSOLUTE EVIDENCE OF THE PRESENCE OR ABSENCE OF DISEASE. THE PSA VALUE SHOULD BE USED IN CONJUNCTION WITH OTHER PERTINENT CLINICAL DIAGNOSTIC PROCEDURES. 105 Anion gap measurement may be of limited value in the presence of any alkalosis, especially in a combined acid base disorder. . 106 CHOLESTEROL INTERPRETATION: Desirable: Less than 200 MG/DL Borderline-High Risk: 200-239 MG/DL High-Risk: 240 MG/DL and over 107 HDL INTERPRETATION: Undesirable: High Risk: Less than 40 MG/DL Desirable: Low Risk: Greater than 60 MG/DL 108 LDL INTERPRETATION: Low Risk Optimal Level: LDL Less than 100 MG/DL Near or Above Optimal: LDL 100-129 MG/DL Borderline High Risk: LDL 130-159 MG/DL High Risk: LDL 160-189 MG/DL Very High Risk: LDL Greater than 189 MG/DL 109 * SERUM LEVELS OF PSA MEASURED USING THE [employer] ACCESS HYBRITECH IMMUNOASSAY SHOULD NOT BE INTERPRETED ABSOLUTE EVIDENCE OF THE PRESENCE OR ABSENCE OF DISEASE. THE PSA VALUE SHOULD BE USED IN CONJUNCTION WITH OTHER PERTINENT CLINICAL DIAGNOSTIC PROCEDURES. Procedures Date Code Description Status 07/10/2018 83956 EKG Tracing & Interpretation Completed 05/20/2018 77812 EKG Tracing & Interpretation Completed 01/22/2018 01449 Neurostimulator Pulse Generator Analysis W/O Completed Reprogramming 12/19/2017 39808 EKG Tracing & Interpretation Completed 08/07/2017 72082 ECG Monitor/Recording W/Visual Superimposition Scanning Completed 07/13/2017 14037 Treadmill Interp/Report Only Completed 07/13/2017 81614 Stress Test Supervsn W/Out I/R Completed 07/10/2017 32415 ECHO Transthoracic, Real-Time 2D With Doppler And Color Completed Flow 07/10/2017 58219 ECHO Transthoracic, Real-Time 2D With Doppler And Color Completed Flow 06/21/2017 28830 EKG Tracing & Interpretation Completed 09/04/2016 [id number] Colonoscopy Completed 06/20/2016 66511 EKG Tracing & Interpretation Completed 04/07/2016 97980 EKG Tracing & Interpretation Completed 01/05/2016 77459 EKG Tracing & Interpretation Completed 04/21/2015 39195 EKG Tracing & Interpretation Completed 12/16/2014 96191 ECHO Transthoracic, Real-Time 2D With Doppler And Color Completed Flow 12/08/2014 40139 EKG Tracing & Interpretation Completed 12/04/2014 80777 Treadmill Interp/Report Only Completed 12/04/2014 90927 Stress Test Supervsn W/Out I/R Completed 09/24/2014 92127 Pulmonary Function><Bronchodil Completed 09/24/2014 87980 Diffusing Capacity Completed 09/24/2014 70638 Plethysmography Determination Lung Volumes & Per Airway Completed Resist 09/09/2014 65866 ECHO Transthoracic, Real-Time 2D With Doppler And Color Completed Flow 09/07/2014 08287 EKG Tracing & Interpretation Completed 06/18/2014 87176 Repair Hernia Inguinal > 5Yrs, Reducible Completed 06/18/2014 23237 Repair Hernia Umbilical > 5 Yrs, Reducible Completed 06/12/2014 62145 ECHO Transthoracic, Real-Time 2D With Doppler And Color Completed Flow 05/29/2014 47305 Treadmill Interp/Report Only Completed 05/29/2014 58823 Stress Test Supervsn W/Out I/R Completed 04/21/2014 30265 EKG Tracing & Interpretation Completed 09/24/2013 08676 Holter Monitoring 24 HR New Completed 09/09/2013 07311 ECHO Stress Test Incl Perf Contiuous ekg Monitoring Completed W/Phys Superv 09/05/2013 00892 ECHO Transthoracic, Real-Time 2D With Doppler And Color Completed Flow 08/08/2013 36971 EKG Tracing & Interpretation Completed 05/30/2012 05053 EKG Tracing & Interpretation Completed 11/23/2011 25594 Treadmill Interp/Report Only Completed 11/23/2011 88177 Stress Test Supervsn W/Out I/R Completed 11/22/2011 58207 ECHO Stress Test Incl Perf Contiuous ekg Monitoring Completed W/Phys Superv 11/22/2011 83949 ECHO Stress Test Incl Perf Contiuous ekg Monitoring Completed W/Phys Superv 08/24/2011 32697 Color Flow Doppler/Interp & Reprt Completed 08/24/2011 26643 Pulse Wave/Continuous-Interp.RPT Completed 08/24/2011 11934 ECHO Transthorasic Realtime 2D W Doppler & Color Flow Completed Hosp 08/17/2011 64235 EKG Tracing & Interpretation Completed 09/22/2005 [id number] Colonoscopy Completed Encounters Type Date Location Provider Dx Diagnosis Office Visit 07/12/2018 Orthopedic Danny Mir M25.561 Pain in right 3:00p Services Of [facility] knee M25.461 Effusion, right knee R29.6 Repeated falls Office Visit 07/10/2018 3:40p [facility] Nahun Holder G20 Parkinson 's Josue Clay disease R29.6 Repeated falls I95.1 Orthostatic hypotension I49.5 Sick sinus syndrome Office Visit 06/25/2018 3:00p [facility] Pino Triana G2Nguyễn Parkinson's Services Of [facility] DIGITAL PRODUCTION ARTIST disease R29.6 Repeated falls I95.1 Orthostatic hypotension Z96.89 Presence of other specified functional implants Office Visit 06/24/2018 11:30a Orth[facility] Danny Mir, R60.0 Localized edema Services Of MD Tillman M25.561 Pain in right knee R29.6 Repeated falls Office Visit 06/12/2018 1:00p Dago Mir M25.561 Pain in Services Of [facility] CA[facility] right knee M25.461 Effusion, right knee R29.6 Repeated falls S80.01xA Contusion of right knee, initial encounter Office Visit 06/04/2018 9:00a [facility] Drew Thomas G2Nguyễn Parkinson's Services Of [facility] M.DPriti disease I95.1 Orthostatic hypotension G47.33 Obstructive sleep apnea (adult) (pediatric) Office Visit 05/20/2018 2:00p [facility] Isabel Bruno I95.1 Orthostatic Of [facility] Sunny, N.P. hypotension I49.3 Ventricular premature depolarization I49.5 Sick sinus syndrome R06.00 Dyspnea, unspecified Office Visit 04/29/2018 3:20p [facility] Internal Geraldo Cruz M54.5 Low back pain Medicine Josue Saabedmond K59.00 Constipation, unspecified R12 Heartburn Office Visit 04/16/2018 12:00p [facility] Neri Curry Parkinson's Services Of [facility] MPritiDPriti disease G47.33 Obstructive sleep apnea (adult) (pediatric) R42 Dizziness and giddiness R26.81 Unsteadiness on feet Office Visit 03/15/2018 1:45p [facility] Neri Curry Parkinson's Services Of [facility] M.DPriti disease G47.33 Obstructive sleep apnea (adult) (pediatric) R42 Dizziness and giddiness R26.81 Unsteadiness on feet Office Visit 01/22/2018 9:15a [facility] Neri Curry Parkinson's Services Of [facility] M.DPriti disease G47.33 Obstructive sleep apnea (adult) (pediatric) R42 Dizziness and giddiness R26.81 Unsteadiness on feet Z96.89 Presence of other specified functional implants Office Visit 12/19/2017 2:30p [facility] Nahun Holder G47.33 Obstructive sleep Josue Clay apnea (adult) (pediatric) I49.3 Ventricular premature depolarization R42 Dizziness and giddiness I49.5 Sick sinus syndrome Office Visit 10/19/2017 Pulmonology Noble Silva G47.33 Obstructive sleep 10:30a Sleep Services Of SOL[facility] [place], RN, apnea (adult) [facility] MORTGAGE PROTECTION SPECIALIST-BC (pediatric) R68.84 Jaw pain Office Visit 08/21/2017 11:30a [facility] Isabel Correa, R42 Dizziness and Of [facility] N.P. 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 R68.84 Jaw pain Office Visit 06/21/2017 9:00a [facility] Nahun Holder G2Nguyễn Parkinson 's Of [facility] Josue Clay disease R94.39 Abnormal result of other cardiovascular function study R42 Dizziness and giddiness R06.00 Dyspnea, unspecified I49.3 Ventricular premature depolarization Office Visit 04/12/2017 [facility] Internal Geraldo Cruz M26.623 Arthralgia of 11:40a Kelsey Saab M.D. bilateral [place] temporomandibular joint Office Visit 04/10/2017 [facility] Internal Geraldo Cruz Z00.00 Encntr for general 1:20p Kelsey Saab M.D. adult medical exam w/o [place] abnormal findings G20 Parkinson's disease G47.30 Sleep apnea, unspecified E78.00 Pure hypercholesterolemia, unspecified N40.0 Benign prostatic hyperplasia without lower urinry tract symp M25.569 Pain in unspecified knee K21.9 Gastro-esophageal reflux disease without esophagitis Office Visit 12/29/2016 [facility] Ck Bruno G2Nguyễn Parkinson's 3:30p Malcolm Alaniz M.D. disease G47.30 Sleep apnea, unspecified Office Visit 07/11/2016 9:40a [facility] Internal John Dyer NP M79.672 Pain in left Medicine foot Office Visit 06/20/2016 10:20a [facility] Nahun He Parkinson 's Josue Clay disease G47.30 Sleep apnea, unspecified R60.9 Edema, unspecified Office Visit 06/07/2016 3:30p [facility] Ck Bruno G20 Parkinson's Services Of Nena Alaniz M.D. disease Office Visit 05/18/2016 10:40a [facility] Internal Kusum Bermudez, J20.9 Acute bronchitis, Medicine N.P. unspecified J01.90 Acute sinusitis, unspecified Office Visit 05/05/2016 Pulmonology And Shira G47.33 Obstructive sleep 11:45a [facility] Of [facility] [place], RN, apnea (adult) [facility] MORTGAGE PROTECTION SPECIALIST-BC (pediatric) Office Visit 04/07/2016 [facility] Internal Geraldo Cruz Z00.01 Encounter for 9:40a eKlsey Saab M.D. general adult [place] medical exam w abnormal findings G20 Parkinson's disease G47.30 Sleep apnea, unspecified E78.00 Pure hypercholesterolemia, unspecified N40.0 Benign prostatic hyperplasia without lower urinry tract symp R60.0 Localized edema Office Visit 03/10/2016 11:00a [facility] Internal Geraldo Cruz J06.9 Acute upper Kelsey Saab M.D. respiratory [place] infection, unspecified Office Visit 01/28/2016 9:00a [facility] Internal Maxi D17.21 Benign lipomatous Kelsey Kaiser M.D. neoplasm of skin, [place] subcu of right arm R29.6 Repeated falls R22.31 Localized swelling, mass and lump, right upper limb Office Visit 01/05/2016 [facility] Internal Geraldo Cruz Z01.810 Encounter for 11:20a Kelsey Saab M.D. preprocedural [place] cardiovascular examination G20 Parkinson's disease G47.30 Sleep apnea, unspecified Office Visit 11/24/2015 [facility] Ck Bruno G20 Parkinson's 9:15a Clinic Josue Alaniz disease Office Visit 06/01/2015 [facility] Ck Bruno G20 Parkinson's 2:45p Services Of Nena Alaniz M.D. disease Office Visit 04/21/2015 [facility] Nahun Holder G20 Parkinson's 11:40a Josue Clay disease E78.0 Pure hypercholesterolemia R07.9 Chest pain, unspecified R06.00 Dyspnea, unspecified R94.31 Abnormal electrocardiogram [ECG] [EKG] Office 02/10/2015 [facility] G20 Parkinson's disease Visit 3:15p Neurologic Josue Alaniz Services Of [facility] Office 12/24/2014 [facility] Nahun Holder E78.0 Pure hypercholesterolemia Visit 2:40p Cardiology Josue Clay R07.9 Chest pain, unspecified R06.00 Dyspnea, unspecified R00.2 Palpitations Office Visit 12/03/2014 2:00p [facility] Shelly Jarrett, HEATHER 426.4 Right Bundle Branch Block 272.0 Hypercholesterolemia Pure 786.50 Pain Chest Unspec 427.69 Premature Beats Other Office Visit 12/02/2014 4:00p [facility] Internal Geraldo Cruz 786.50 Pain Chest Unspec Kelsey Saab M.D. Office Visit 11/18/2014 2:30p [facility] Ck Bruno 327.23 Obstructive Sleep Services Of Nena Alaniz M.D. Apnea Adult & Pediatric 332.0 Paralysis Agitans Office Visit 10/06/2014 Pulmonology And Shira 327.23 Obstructive Sleep 10:15a Sleep Services Of [place] [place], RN, Apnea Adult & [facility] Pediatric Office Visit 10/01/2014 Pulmonology And Sarah Muniz, 786.09 Dyspnea & 2:45p Sleep Services Of Respiratory [facility] Abnormalities Other Office Visit 09/07/2014 [facility] Nahun Holder 786.09 Dyspnea & 3:40p Josue Clay Respiratory Abnormalities Other 794.31 Electrocardiogram (ECG) (EKG) Abnormal 426.4 Right Bundle Branch Block Office Visit 09/03/2014 1:00p Pulmonology And Josef Malik, 786.05 Shortness Of Sleep Services Of Josue Breath [facility] Office Visit 08/31/2014 2:40p [facility] Internal Geraldo Cruz V06.1 Diphtheria- Tetan Medicine Josue Saab us-Pertusis Combined (DTaP) V03.82 Streptococcus Pneumoniae Vaccination Spec Other 786.05 Shortness Of Breath Office Visit 05/29/2014 11:30a [facility] Nahun Holder 550.90 Hernia Inguinal Josue Clay W/O Obstruct Or Gangrene Unilateral Unspec 272.0 Hypercholesterolemia Pure 426.4 Right Bundle Branch Block 794.31 Electrocardiogram (ECG) (EKG) Abnormal 414.01 Coronary Atherosclerosis Ruby Office Visit 05/21/2014 4:00p [facility] Internal Geraldo Cruz 550.90 Hernia Inguinal Kelsey Saab M.D. W/O Obstruct Or Gangrene Unilateral Unspec Office Visit 05/07/2014 4:00p [facility] Internal Geraldo Cruz 550.90 Hernia Inguinal Medicine Josue Saab W/O Obstruct Or Gangrene Unilateral Unspec Office Visit 04/28/2014 2:45p [facility] Binu Bruno 332.0 Paralysis Agitans Services Of Nena Alaniz M.D. Office Visit 04/23/2014 9:20a [facility] Internal Geraldo Cruz 465.9 URI Upper Medicine Josue Saab Respiratory Infections Acute Unspec Sites 332.0 Paralysis Agitans Office 04/21/2014 Maddie Holder 272.0 Hypercholesterolemia Pure Visit 3:00p Cardiology Josue Clay 794.31 Electrocardiogram (ECG) (EKG) Abnormal 426.4 Right Bundle Branch Block Office Visit 03/02/2014 [facility] Internal Geraldo Cruz 465.9 URI Upper Respiratory 2:20p Kelsey Saab M.D. Infections Acute Unspec Sites Office Visit 10/29/2013 Maddie Bruno 332.0 Paralysis Agitans 1:45p Binu Alaniz M.D. Services Of [facility] Office Visit 08/08/2013 Maddie Holder 794.31 Electrocardiogram 3:20p Cardiology Josue Clay (ECG) (EKG) Abnormal 332.0 Paralysis Agitans 272.0 Hypercholesterolemia Pure 414.01 Coronary Atherosclerosis Ruby 782.3 Edema Office Visit 07/15/2013 3:00p [facility] Binu Bruno 332.0 Paralysis Services Of Nena Alaniz M.D. Agitans Office Visit 06/23/2013 11:00a [facility] Internal Geraldo Cruz 790.21 Impaired Fasting Kelsey Saab M.D. Glucose 780.57 Unspecified Sleep Apnea 332.0 Paralysis Agitans 272.0 Hypercholesterolemia Pure Office Visit 01/23/2013 10:30a [facility] Internal Samra Alexis, 477.9 Rhinitis Medicine N.P. Allergic Cause Unspec 465.9 URI Upper Respiratory Infections Acute Unspec Sites Office Visit 01/15/2013 Maddie Bruno 332.0 Paralysis Agitans 2:45p Binu Alaniz M.D. Services Of [facility] Office Visit 08/27/2012 [facility] Internal Geraldo Cruz 553.1 Hernia Umbilical 1:00p Kelsey Saab M.D. Office Visit 08/02/2012 [facility] Internal Geraldo Cruz 724.5 Backache Unspec 10:20a Kelsey Saab M.D. Office Visit 07/16/2012 Maddie Bruno 332.0 Paralysis Agitans 2:45p Neurologic Josue Alaniz Services Of [facility] Office Visit 06/19/2012 [facility] Internal Geraldo Cruz 719.46 Pain Joint Lower 2:40p Kelsey Saab M.D. Leg Office Visit 06/10/2012 [facility] Internal Geraldo Cruz 381.19 Otitis Media 10:40a Kelsey Saab M.D. Chronic Serous Other Office Visit 05/30/2012 Maddie Holder 786.09 Dyspnea & 10:20a Cardiology Josue Clay Respiratory Abnormalities Other 426.52 Right Bundle Branch Block W/ Left Anterior Fascicular Block 794.31 Electrocardiogram (ECG) (EKG) Abnormal Office Visit 05/03/2012 11:20a [facility] Rosaline Cruz 465.9 URI Upper Kelsey Saab M.D. Respiratory Infections Acute Unspec Sites 382.9 Otitis Media Unspec Office Visit 04/03/2012 3:40p [facility] Internal Geraldo Cruz 726.19 Shoulder Disorders Kelsey Saab M.D. Other Spec Office Visit 02/21/2012 1:20p [facility] Rosaline Cruz 786.09 Dyspnea & Kelsey Saab M.D. Respiratory Abnormalities Other Office Visit 01/16/2012 2:30p [facility] 332.0 Paralysis Agitans Neurologic Josue Alaniz Services Of [facility] Office Visit 12/20/2011 10:00a [facility] Internal Geraldo Cruz 780.79 Malaise And Fatigue Kelsey Saab M.D. Other 786.09 Dyspnea & Respiratory Abnormalities Other 600.20 Benign Localized Hyperplasia Prostate W/O Urinary Obstruct Office Visit 11/24/2011 11:15a [facility] Binu Burno 780.93 Memory Loss Services Of [facility] Josue Alaniz 780.79 Malaise And Fatigue Other Office Visit 11/22/2011 11:30a [facility] Nahun Holder 786.05 Shortness Of Josue Clay Breath 794.31 Electrocardiogram (ECG) (EKG) Abnormal 780.79 Malaise And Fatigue Other Office Visit 11/01/2011 1:00p [facility] Geraldo E. 786.05 Shortness Of Medicine Josue Saab Breath 780.93 Memory Loss Office Visit 08/17/2011 1:40p [facility] Geraldo E. 786.09 Dyspnea & Kelsey Saab M.D. Respiratory Abnormalities Other Office Visit 07/17/2011 1:00p [facility] Geraldo E. 599.0 UTI Urinary Tract Kelsey Saab M.D. Infection Site Not Spec 790.21 Impaired Fasting Glucose Office Visit 07/07/2011 11:40a [facility] Geraldo E. 780.79 Malaise And Kelsey Saab M.D. Fatigue Other 784.1 Throat Pain Office Visit 06/20/2011 10:40a [facility] Geraldo E. 780.79 Malaise And Kelsey Saab M.D. Fatigue Other Office Visit 06/13/2011 1:40p [facility] Geraldo E. 780.79 Malaise And Kelsey Saab M.D. Fatigue Other Office Visit 04/19/2011 10:00a [facility] Geraldo E. 719.46 Pain Joint Lower Kelsey Saab M.D. Leg Office Visit 12/06/2010 10:00a DO Not Use [facility] Jason 601.1 Prostatitis AT Cuate Sparks M.D. Office Visit 11/24/2010 1:00p DO Not Use [facility] Geraldo E. V70.0 Examination AT Oli Saab M.D. General Medical Routine AT Health Care Facility 790.21 Impaired Fasting Glucose 477.9 Rhinitis Allergic Cause Unspec 723.1 Cervicalgia 600.20 Benign Localized Hyperplasia Prostate W/O Urinary Obstruct Office Visit 07/28/2010 4:00p DO Not Use [facility] Geraldo E. 726.19 Shoulder AT Oli Saab M.D. Disorders Other Spec 780.79 Malaise And Fatigue Other V03.82 Streptococcus Pneumoniae Vaccination Spec Other Office Visit 04/15/2010 9:20a DO Not Use [facility] Geraldo E. 465.9 URI Upper AT Oli Saab M.D. Respiratory Infections Acute Unspec Sites Office Visit 11/25/2009 3:40p DO Not Use [facility] Geraldo E. 604.90 Orchitis & AT Oli Saab M.D. Epididymitis Unspec Office Visit 09/09/2009 9:00a DO Not Use [facility] Geraldo E. V70.0 Examination General AT Oli Saab M.D. Medical Routine AT Health Care Facility 790.21 Impaired Fasting Glucose 600.20 Benign Localized Hyperplasia Prostate W/O Urinary Obstruct Office Visit 05/31/2009 3:20p DO Not Use [facility] Geraldo E. 300.02 Anxiety Disorder AT Oli Saab M.D. Generalized 796.2 Blood Pressure Reading Elevated W/O Hypertension Office Visit 05/03/2009 2:40p DO Not Use [facility] Geraldo E. 465.9 URI Upper AT Oli Saab M.D. Respiratory Infections Acute Unspec Sites 780.79 Malaise And Fatigue Other Office Visit 12/17/2008 11:15a DO Not Use [facility] Geraldo E. 465.9 URI Upper AT Oli Saab M.D. Respiratory Infections Acute Unspec Sites Office Visit 09/07/2008 9:00a [facility] Geraldo E. V05.8 Single Disease AT [facility] Josue Saab Spec Other Hematite Vaccination & Inoculation V70.0 Examination General Medical Routine AT Health Care Facility 602.9 Prostate Disorder Unspec Office Visit 12/20/2007 10:15a [facility] Geraldo E. 465.9 URI Upper Assoc AT Josue Saab Respiratory [facility] Infections Acute Unspec Sites Office Visit 11/27/2007 10:30a [facility] Geraldo E. 723.1 Cervicalgia Assoc AT Josue Saab [facility] 780.52 Insomnia Unspecified Office Visit 09/05/2007 9:30a [facility] AT Geraldo Saab, 724.2 [facility] Josue 602.9 Prostate Disorder Unspec 477.9 Rhinitis Allergic Cause Unspec V70.0 Examination General Medical Routine AT Health Care Facility Office Visit 06/20/2007 3:15p [facility] Geraldo E. 465.9 URI Upper Assoc AT Josue Saab Respiratory [facility] [place] Infections Acute Unspec Sites Office Visit 03/29/2007 9:15a [facility] Geraldo E. 724.2 [facility] [place] Plan of Treatment Future Appointment(s):08/08/2018 12:15 pm - Drew Thomas M.D. at [facility]10/03/2018 3:20 pm - Nahun Clay M.D. at [facility]08/09/2018 3:00 pm - Isabel Correa N.P. at [facility]10/22/2018 2:15 pm - Shira Loredo DNP, RN, MORTGAGE PROTECTION SPECIALIST- at [facility]07/26/2018 - Drew Thomas M.D.R29.6 Repeated fallsFollow up:2 [id number] Parkinson's [id number] Orthostatic hypotension
--- OUTSIDE RECORDS SUMMARY | 2018-08-08 14:37 | XMS REPORT | Continuity of Care Document ---
:1945 External Reference #:[id number] Author Name [facility] Care Team Providers Name Role Phone Geraldo Saab III, MD Primary Care Physician Unavailable Payers Date Identification Numbers Payment Provider Subscriber Effective: 2009 Policy Number: [id number] Medicare Chris Wallis PayID: [id number] [address] [place] [address] Policy Number: [id number] [facility] Chris Wallis Group Number: [id number] [address] PayID: [id number] [place] [address] Advance Directives Description No Information Available Problems [...] arteriosclerosis Nahun Clay M.D. Onset: 08/08/2013 Edema Nhaun Clay M.D. Onset: 08/08/2013 Difficulty breathing Sarah Muniz MD Onset: 10/01/2014 Obstructive sleep apnea of adult Shira Loredo DNP, RN, [employer]- Onset: Dizziness and giddiness Drew Thomas M.D. [...] Unknown Quit in 1982 Smoking Status Reviewed: 07/12/18 Quit in 1982 ETOH Use Consumes 1 [...] Sinemet CR 3 tabs by mouth 360tabs Andreas Lunyd MD 06/04/2018 25-100mg four times a day Tablets [...] Sinemet CR 2 tabs by mouth 240tabs [facility] [place] 04/25/2018 - 25-100mg four times a day [...] ER take 1 pill 4 120tabs G20 [facility] [place] 03/15/2018 - times a day, Josue Thomas 06/03/2018 50-200mg Tablets ER 6am, 10am, 2pm and 6pm Trazodone HCL 1 by mouth every 30tabs G47.33 [facility] [place] 01/22/2018 - 50mg night Josue Thomas 03/14/2018 Tablets Carbidopa-Levodopa ER take 1 pill 90tabs G20 [facility] [place] 01/22/2018 - three times at Josue Thomas [...] day at 6am, 12pm and 6 pm [facility] of 300gm M79.672 Jonh Dyer NP 07/11/2016 - 1% Gel gel twice daily 04/09/2017 to the affected area. Azithromycin two tabs day 6tabs J20.9 Kusum Bermudez, 05/18/2016 - 250mg one, one daily N.P. 05/28/2016 Tablets till gone Cheratussin ac 2 teaspoons by 120ml J20.9 Kusum Bermudez, 05/18/2016 - mouth every 4 N.P. 07/11/2016 100-10mg/5ML Syrup hours as needed Dyazide 1 by mouth daily 30caps Gearldo Cruz 04/08/2016 - 37.5-25mg 3 days per [...] Cream Nystatin topically bid 60g Unknown - [id number] prn 01/28/2016 Cream Metamucil Original po with liquid Unknown - Texture qhs 12/02/2014 Powder Cortisone Cream topical, as Unknown - needed 05/19/2018 Proctosol HC Apply bid prn 60gm Javier Lozada MD - 2.5% Cream 12/17/2008 Kenalog Apply bid prn 60GM Javier Lozada MD - 0.1% Cream Eczema 12/17/2008 Multivitamins 1 PO qd 90tabs Unknown - Tablets 02/21/2012 Vitamin C 1 PO qd Katiana SIMÓN, - 500mg Tablets Geraldo Cruz MD 07/17/2011 Ecotrin Regular 1 PO qd Unknown - Strength 06/19/2018 81mg Tablets Medications Administered in Office Medication SIG Qnty Indications Ordering Provider Date Influenza Virus Vaccine Geraldo Saab M.D. 11/24/2014 Injection Influenza Virus Vaccine Unknown 12/24/2013 Injection Immunizations CPT Code Status Date Vaccine Lot # [id number] Given 12/11/2017 Fluzone High Dose 86984 Given 01/14/2016 Fluzone High Dose 81915 Given 08/31/2014 Tdap - Tetanus/Diptheria/Acellular Pertussis [id number] 70200 Given 08/31/2014 Pneumococcal Conjugate Vaccine 13 Valent For [id number] Intramuscular Use 95570 Given 07/28/2010 Pneumonia Vaccine [id number] 79553 Given 01/14/2009 Influenza Virus 3Yrs & Over 56536 Given 09/07/2008 Zoster (Zostavax) 26407 Given 01/01/2008 Influenza Virus 3Yrs & Over 33953 Given 07/13/2004 Td (History By Patient) Vital Signs Date Vital Result Comment 07/12/2018 3:02pm Height 70 inches 5'10" Heart [...] H/L Range Note CBC Auto Diff 06/18/2018 [facility] White Blood 9.7 10^3/uL N 3.5-10.[address] [place] [address] [phone] Red Blood Count 4.16 10^6/uL Low 4.18-5.48 [...] Red Blood Cells % 0.1 Inr/Protime 06/18/2018 [facility] Inr 0.97 N 0.77-1.[address] [place] [address] [phone] Laboratory test 06/18/2018 [facility] Partial 27.7 seconds N 26.0-36.[address] [address] PTT [phone] Laboratory test 06/18/2018 [facility] Creatine 57 U/L N 10- [address] Kinase(CK) [place] [address] [phone] Comp Metabolic 06/18/2018 [facility] Sodium 137 mmol/L N 135- [address] [place] [address] [phone] Potassium 4.1 mmol/L N 3.5-5.0 Chloride 106 [...] 143.2 >60 1 CBC Auto Diff 06/07/2018 [facility] White Blood 7.5 10^3/uL N 3.5-10.[address] [place] [address] [phone] Red Blood Count 4.02 10^6/uL Low 4.18-5.48 [...] Blood Cells % 0.1 Laboratory test 06/07/2018 [facility] Lactic Acid 0.7 mmol/L N 0.5-2.0 [address] [place] [address] [phone] Comp Metabolic 06/07/2018 [facility] Sodium 138 mmol/L N 135- [address] [place] [address] [phone] Potassium 4.1 mmol/L N 3.5-5.0 Chloride 106 [...] Egfr 111.4 >60 3 Urinalysis Profile 06/07/2018 [facility] Urine Color Yellow [address] [place] [address] [phone] Urine Appearance Clear Urine Specific Shirley 1.026 N 1.010-1.030 Urine pH 5.0 N 5-9 Urine Urobilinogen Negative Negative Urine Ketones Trace Abnormal Negative Urine Protein Negative Negative Urine Leukocytes Negative Negative Urine Blood Negative Negative * * Abnormal Negative 4 Urine Nitrite Negative Negative Urine Bilirubin Negative Negative Urine Glucose Negative Negative Laboratory test 06/07/2018 [facility] Point of Care 130 mg/dL High 70-[address] [place] [address] [phone] Comp Metabolic 05/20/2018 [facility] Sodium 140 mmol/L N 135- 145 Panel [address] [place] [address] [phone] Potassium 4.6 mmol/L N 3.5-5.0 Chloride 104 [...] 81.1 >60 6 CBC Auto Diff 05/20/2018 [facility] White Blood 6.4 10^3/uL N 3.5-10.[address] [place] [address] [phone] Red Blood Count 4.28 10^6/uL N 4.00-5.40 [...] Blood Cells % 0 Laboratory test 05/20/2018 [facility] Magnesium 2.2 mg/dL N 1.9-2.[address] [place] [address] [phone] Cortisol 8.10 g/dL 7 B-Type Natriuretic Peptide BNP 32 pg/mL <=100 Inr/Protime 02/10/2018 [facility] Inr 0.95 N 0.77-1.02 [address] [place] [address] [phone] Urinalysis Profile 02/10/2018 [facility] Urine Color Yellow [address] [place] [address] [phone] Urine Appearance Clear Urine Specific Shirley 1.020 N 1.010-1.030 Urine pH 6.0 N 5-9 Urine Urobilinogen Negative Negative Urine Ketones Trace Abnormal Negative Urine Protein Negative Negative Urine Leukocytes Negative Negative Urine Blood Negative Negative * * Abnormal Negative 8 Urine Nitrite Negative Negative Urine Bilirubin Negative Negative Urine Glucose Negative Negative CBC Auto Diff 02/10/2018 [facility] White Blood 5.8 10^3/uL N 3.5-10.[address] [place] [address] [phone] Red Blood Count 4.67 10^6/uL N 4.00-5.40 [...] Blood Cells % 0 Laboratory test 02/10/2018 [facility] Lactic Acid 0.8 mmol/L N 0.5-2.0 9 finding [address] [place] [address] [phone] Comp Metabolic 02/10/2018 [facility] Sodium 138 mmol/L N 135- 145 Panel [address] [place] [address] [phone] Potassium 4.7 mmol/L N 3.5-5.0 Chloride 101 [...] Egfr 95.2 >60 10 Laboratory test 02/10/2018 [facility] Magnesium 2.0 mg/dL N 1.9-2.[address] [place] [address] [phone] C Reactive Protein < 1.00 mg/L N <8.01 Troponin-I (TnI) 0.00 ng/mL <0.04 TSH (Thyroid Stim Horm) 1.44 mcIU/mL N 0.34-5.60 CBC Auto Diff 07/31/2017 [facility] White Blood 5.7 10^3/uL N 3.5-10.[address] [place] [address] [phone] Red Blood Count 4.22 10^6/uL N 4.0-5.4 [...] Cells % 0.1 Comp Metabolic Panel 07/31/2017 [facility] Sodium 139 mmol/L N 139-145 [address] [place] [address] [phone] Potassium 4.7 mmol/L N 3.5-5.0 Chloride 102 [...] Egfr 118.8 >60 11 Laboratory test 07/31/2017 [facility] Magnesium 1.9 mg/dL N 1.9-2.7 finding [address] [place] [address] [phone] TSH (Thyroid Stim Horm) 1.83 mcIU/mL N 0.34-5.60 B-Type Natriuretic Peptide BNP 34 pg/mL 12 Laboratory test finding 06/21/2017 [facility] Magnesium <pending > [address] [place] [address] [phone] TSH (Thyroid Stim Horm) <pending> Laboratory 06/21/2017 [facility] B-Type <pending> test finding [address] [place] [address] Peptide BNP [phone] Laboratory 05/02/2017 [facility] Rapid Strep Negative Negative 13 test finding [address] Molecular [place], [place] [id number] [phone] Lipid Profile 04/04/2017 [facility] Triglycerides 37 mg/dL 14 (Trig/Chol/HDL [address] ) [place], [place] [address] [phone] Cholesterol 160 mg/dL 15 HDL Cholesterol 72.1 mg/dL 16 LDL Cholesterol 81 mg/dL 17 Laboratory test 04/04/2017 [facility] PSA 3.049 ng/mL 0-4.0 [address] [place] [address] [phone] Urine Culture And 10/07/2016 [facility] Urine SEE RESULT 19 , Sensitivities [address] Culture BELOW 20 [place] [address] [phone] Poc Urinalysis 10/07/2016 [facility] Poc Glucose, Negative N Negative [address] Urine [place], [place] [id number] [phone] Poc Bilirubin, Urine Negative N Negative Poc Ketone, Urine Negative N Negative Poc Specific Shirley, Urine 1.025 N 1.010-1.030 Poc Blood, Urine Trace-intact Abnormal Negative Poc pH, Urine 6.0 N 5-9 Poc Protein, Urine Negative N Negative Poc Urobilinogen, Urine 0.2 N Negative Poc Nitrite, Urine Negative N Negative Poc Leukocytes, Urine Trace Abnormal Negative Poc Color, Urine Yellow N Poc Clarity, Urine Slightly Cloudy N 21 Laboratory test 04/07/2016 [facility] B-Type Natriuretic 50 pg/ mL N [address] [place] [address] [phone] TSH (Thyroid Stim Horm) 1.79 mcIU/mL N 0.34-5.60 Magnesium 1.8 mg/dL Low 1.9-2.7 Basic Metabolic Panel 04/07/2016 [facility] Sodium 139 mmol/L N 133-[address] [place] [address] [phone] Potassium 4.3 mmol/L N 3.5-5.0 Chloride 103 mmol/L N 101-111 Co2 Carbon Dioxide 31 mmol/L N 22-32 Anion Gap 5 mmol/L N 2-11 Glucose 90 mg/dL N 70-100 Blood Urea Nitrogen 17 mg/dL N 6-24 Creatinine 0.80 mg/dL N 0.67-1.17 BUN/Creatinine Ratio 21.3 High 8-20 Calcium 9.0 mg/dL N 8.6-10.3 Egfr Non- 95.3 N >60 Egfr 122.6 N >60 23 Lipid Profile 04/01/2016 [facility] Triglycerides 44 mg/dL N 24 (Trig/Chol/HDL) [address] [place] [address] [phone] Cholesterol 169 mg/dL N 25 HDL Cholesterol 71.6 mg/dL N 26 LDL Cholesterol 89 mg/dL N 27 Basic Metabolic Panel 01/21/2016 [facility] Sodium 140 mmol/L N 133-[address] [place] [address] [phone] Potassium 4.6 mmol/L N 3.5-5.0 Chloride 105 [...] N >60 28 CBC Auto Diff 01/21/2016 [facility] White Blood 6.0 10^3/uL N 3.5-10.[address] [place] [address] [phone] Red Blood Count 4.41 10^6/uL N 4.0-5.4 [...] Cells % 0 N Urinalysis Profile 01/21/2016 [facility] Urine Color Yellow N [address] [place] [address] [phone] Urine Appearance Cloudy N Urine Specific Shirley 1.023 N 1.010-1.030 Urine pH 5.0 N 5-9 Urine Urobilinogen Negative N Negative Urine Ketones Negative N Negative Urine Protein Negative N Negative Urine Leukocytes Negative N Negative Urine Blood Negative N Negative * * Abnormal Negative 29 Urine Nitrite Negative N Negative Urine Bilirubin Negative N Negative Urine Glucose Negative N Negative Inr/Protime 01/21/2016 [facility] Inr 0.98 N 0.89-1.[address] [place] [address] [phone] Laboratory test 01/21/2016 [facility] Partial 31.6 seconds N 26.0-36.[address] [place] [address] PTT [phone] CBC Auto Diff 12/25/2015 [facility] White Blood 6.0 10^3/uL N 3.5-10.[address] [place] [address] [phone] Red Blood Count 4.45 10^6/uL N 4.0-5.4 [...] Cells % 0.1 N Laboratory test 12/25/2015 [facility] B-Type 78 pg/mL N [address] [place] [address] Peptide BNP [phone] Inr/Protime 12/25/2015 [facility] Inr 1.00 N 0.89- [address] 1.11 [place] [address] [phone] Laboratory test 12/25/2015 [facility] Partial Thrombo 31.1 seconds N 26.0- finding [address] Time PTT 36.3 [place] [address] [phone] Lactic Acid 0.8 mmol/L N 0.5-2.0 31 Comp Metabolic Panel 12/25/2015 [facility] Sodium 137 mmol/L N 133-[address] [place] [address] [phone] Potassium 4.1 mmol/L N 3.5-5.0 Chloride 102 [...] 124.7 N >60 32 Laboratory test 12/25/2015 [facility] Magnesium 1.8 mg/dL Low 1.9-2.[address] [place] [address] [phone] Lipase 7 U/L Low 11.0-82.0 Creatine Kinase(CK) 58 U/L N 10-223 C Reactive Protein < 1.00 mg/L N < 5.00 33 Troponin-I (TnI) 0.00 ng/mL N <0.03 34 CKMB 12/25/2015 [facility] CKMB ng/mL 2.1 ng/mL N 0.6-6.[address] [place] [address] [phone] Laboratory test 12/25/2015 [facility] TSH (Thyroid 1.77 N 0.34 -5.[address] Stim Horm) mcIU/[place] [address] [phone] Laboratory test 02/03/2015 [facility] PSA Diagnostic 2.347 N 0 -4.0 [address] ng/[place] [address] [phone] Laboratory test 12/03/2014 [facility] Troponin-I 0.00 N <0.03 36, 37 finding 101 [facility] (TnI) ng/[place] [address] [phone] Magnesium 1.9 mg/dL N 1.9-2.7 38 Basic Metabolic Panel 12/03/2014 [facility] Sodium 139 mmol/L N 133-[address] [place] [address] [phone] Potassium 4.0 mmol/L N 3.5-5.0 Chloride 101 [...] >60 39 Iron & Iron Binding 09/09/2014 [facility] Iron 75 g/dL N 50- 212 [address]acity [address] [place] [address] [phone] Unsaturated Iron Binding 260 g/dL N Total Iron Binding Capacity 335 g/dL N 250-450 % Iron Saturation 22 % N 15-55 Laboratory test 09/09/2014 [facility] Creatine 61 U/L N 10- 223 40 finding 101 [facility] Kinase(CK) [place] [address] [phone] Lipid Profile 09/09/2014 [facility] Triglycerides 39 mg/dL N 41 (Trig/Chol/HDL) [address] [place] [address] [phone] Cholesterol 148 mg/dL N 42 HDL Cholesterol 67.3 mg/dL N 43 LDL Cholesterol 73 mg/dL N 44 Comp Metabolic Panel 09/09/2014 [facility] Sodium 140 mmol/L N 133-145 [address] [place] [address] [phone] Potassium 4.2 mmol/L N 3.5-5.0 Chloride 105 [...] 119.8 N >60 45 Laboratory test 09/09/2014 [facility] B-Type 17 pg/mL N [address] [place] [address] Peptide BNP [phone] CBC Auto Diff 09/09/2014 [facility] White Blood 4.4 Low 4.8-[address] Count 10^3/uL 0.8 [place] [address] [phone] Red Blood Count 4.67 10^6/uL N 4.0-5.4 [...] Blood Cells % 0 N Laboratory 09/09/2014 [facility] TSH (Thyroid Stim 1.44 N 0.34 -5.60 47 test finding [address] Horm) ?IU/[place] [address] [phone] Lipid Profile 12/31/2013 [facility] Triglycerides 51 mg/dL N 48 (Trig/Chol/HDL [address] ) [place], [place] [phone] Cholesterol 156 mg/dL N 49 HDL Cholesterol 73.3 mg/dL N 50 LDL Cholesterol 73 mg/dL N 51 Laboratory test finding 12/31/2013 [facility] Glucose 93 mg/dL N 70-100 [address] [place] [address] [phone] Hemoglobin A1c 5.5 % N Less than 6.0 52 Comp Metabolic Panel 12/31/2013 [facility] Sodium 139 mmol/L N 133-145 [address] [place] [address] [phone] Potassium 4.2 mmol/L N 3.7-5.6 Chloride 105 [...] 127.3 N >60 53 Laboratory test 06/23/2013 [facility] Hemoglobin A1c 5.4 5-7 finding Laboratory test 09/25/2012 [facility] PSA Screening 2.72 ng/mL 0-4.0 54 finding [address] [place] [address] [phone] Lipid Profile 07/05/2012 [facility] Triglycerides 43 mg/dL 40 -200 (Trig/Chol/HDL) [address] [place] [address] [phone] Cholesterol 172 mg/dL Less than 200 HDL Cholesterol 70 mg/dL High 40-60 55 Cholesterol/HDL Ratio 2.5 Average 1-4.44 LDL Cholesterol 93.4 mg/dL Less Than 100 56 Comp Metabolic Panel 07/05/2012 [facility] Sodium 139 mmol/L 133-145 [address] [place] [address] [phone] Potassium 4.3 mmol/L 3.5-5.0 Chloride 103 mmol/L [...] Egfr 95.9 >60 57 Laboratory test 07/05/2012 [facility] Creatine 76 U/L 0-200 [address] [place] [address] [phone] CBC Auto Diff 07/05/2012 [facility] White Blood 5.0 4.8-10.[address] Count 10^3/[place] [address] [phone] Red Blood Count 4.50 10^6/uL 4.0-5.4 Hemoglobin [...] Blood Cells % 0 Laboratory test 07/05/2012 [facility] TSH (Thyroid 1.79 0.34- 5.60 [address] Stimulating miu/[place] [address] Horm) [phone] Laboratory test 03/27/2012 [facility] PSA Screening 2.85 ng/mL 0-4.0 [address] [place] [address] [phone] Laboratory test 11/24/2011 [facility] Vitamin B12 303 pg/mL 180-[address] [place] [address] [phone] TSH 1.34 MIU/ML 0.34-5.60 Lipid Profile 10/26/2011 [facility] Triglyceride 33 mg/dL Low 40-200 (Trig/Chol/HDL) [address] [place] [address] [phone] Cholesterol 165 mg/dL Less Than 200 61 High Density Lipoprotein 68 mg/dL High 40-60 62 Cholesterol/HDL Ratio 2.43 AVERAGE 1-4.97 Low Density Lipoprotein 90 mg/dL Less Than 100 63 CBC With Manual 10/26/2011 [facility] White Blood 4.6 CUMM Low 4.8-10.[address] [place] [address] [phone] Red Cell Count 4.13 CUMM Low 4.6-6.2 [...] Anisocytosis SLIGHT Macrocytosis FEW Laboratory test 10/26/2011 [facility] BNP Evaluatr 42.0 pg/mL 0-[address] [place] [address] [phone] Comp Metabolic 10/26/2011 [facility] Sodium 138 mmol/L 135- [address] [place], [place] [address] [phone] Potassium 4.3 mmol/L 3.5-5.0 Chloride 105 mmol/L [...] eGFR 124.4 > 60 66 Laboratory 09/21/2011 [facility] PSA,Diagnostic 3.63 0-4 67 test finding [address] NG/[place] [address] [phone] Laboratory 07/17/2011 [facility] PSA,Diagnostic 13.31 High 0- 4 68 test finding [address] NG/ML [place], [place] [address] [phone] Urine Culture 07/17/2011 [facility] M --------- 69 & Sensitivi [address] ------- [place] [address] <SEE [phone] NOTE> Laboratory 07/17/2011 [employer] [facility] Hemoglobin A1c 5.5 5-7 test finding CBC Auto Diff 06/13/2011 [facility] White Blood Count 5.8 CUMM 4.8-10. [address] [place] [address] [phone] Red Cell Count 4.41 CUMM Low 4.6-6.2 [...] Basophils 0 0-0.2 Comp Metabolic Panel 06/13/2011 [facility] Sodium 140 mmol/L 135-[address] [place] [address] [phone] Potassium 4.8 mmol/L 3.5-5.0 Chloride 106 mmol/L [...] 108.6 > 60 72 Laboratory test 06/13/2011 [facility] Erythrocyte Sed 5 MM/HR 0-[address] [place] [address] [phone] Rheumatoid Factor < 15 IU/mL <15 73 Pattie (Antinuclear 06/13/2011 [facility] Antinuclear AB NEGATIVE Negative Antibodies) [address] [place] [address] [phone] Laboratory test 06/13/2011 [facility] C Reactive < 0.5 mg/dL Less Than finding [address] Protein 0.5 [place] [address] [phone] Thyroxine Free 0.87 ng/dL 0.61-1.24 TSH 1.33 MIU/ML 0.34-5.60 Lyme Disease Serology Negative Negative 74 Testosterone 06/13/2011 [facility] Free 6.2 Abnormal 9-30 75 Free & Total Testosterone ng/[place] [address] [phone] Total Testosterone 327 ng/dL 240-950 76 Laboratory test 05/15/2011 [facility] PSA,Diagnostic 2.96 NG/ML 0-[address] [place] [address] [phone] Laboratory test 02/15/2011 [facility] PSA,Diagnostic 3.17 NG/ML 0-[address] [place] [address] [phone] Laboratory test 12/27/2010 [facility] PSA,Diagnostic 9.59 NG/ML High 0-[address] [place] [address] [phone] Laboratory test 12/07/2010 [facility] PSA,Diagnostic 50.49 High 0-[address] NG/[place] [address] [phone] DR [facility] 09/05/2010 [facility] TSH 2.08 0.34-5. Panel [address] MIU/ML 60 [place] [address] [phone] Comp Metabolic 09/05/2010 [facility] Sodium 138 mmol/L 135- [address] [place] [address] [phone] Potassium 4.4 mmol/L 3.5-5.0 Chloride 105 mmol/L [...] 124.8 > 60 83 Lipid Profile 09/05/2010 [facility] Triglyceride 42 mg/dL 40- 200 (Trig/Chol/HDL) [address] [place] [address] [phone] Cholesterol 176 mg/dL Less Than 200 84 High Density Lipoprotein 68 mg/dL High 40-60 85 Cholesterol/HDL Ratio 2.59 AVERAGE 1-4.97 Low Density Lipoprotein 100 mg/dL Less Than 100 86 CBC Auto Diff 09/05/2010 [facility] White Blood 5.0 CUMM 4.8- 10.[address] [place] [address] [phone] Red Cell Count 4.33 CUMM Low 4.6-6.2 [...] Abs Basophils 0 0-0.2 CBC With 09/01/2009 [facility] White Blood 5.4 CUMM 4.8-10.8 Electronic Diff [address] [place] [address] [phone] Red Cell Count 4.47 CUMM Low 4.6-6.2 [...] Abs Basophils 0 0-0.2 Lipid Profile 09/01/2009 [facility] Triglyceride 47 mg/dL 40- 200 (Trig/Chol/HDL) [address] [place] [address] [phone] Cholesterol 170 mg/dL Less Than 200 87 High Density Lipoprotein 63 mg/dL High 40-60 88 Cholesterol/HDL Ratio 2.70 AVERAGE 1-4.97 Low Density Lipoprotein 98 mg/dL Less Than 100 89 Comp Metabolic Panel 09/01/2009 [facility] Sodium 135 mmol/L 135-[address] [place] [address] [phone] Potassium 4.7 mmol/L 3.5-5.0 Chloride 103 mmol/L [...] > [address] [facility] 09/01/2009 [facility] TSH 1.46 0.34-5.[address] MIU/[place] [address] [phone] Laboratory test 01/12/2009 [facility] [facility] PSA,Diagno 2.00 NG/ML 0 -4 95, [address] [place] [address] [phone] CBC With 08/11/2008 [facility] White 4.6 CUMM Low 4.8-10.8 Electronic Diff [address] [place] [address] Count [phone] Red Cell Count 4.54 CUMM Low 4.6-6.2 [...] Basophils 0 0-0.2 Comp Metabolic Panel 08/11/2008 [facility] Sodium 139 mmol/L 135-145 [address] [place] [address] [phone] Potassium 5.2 mmol/L High 3.5-5.0 Chloride 108 [...] (Sgot) 19 U/L 12-42 Lipid Profile 08/11/2008 [facility] Triglyceride 24 mg/dL Low 40-200 (Trig/Chol/HDL) [address] [place] [address] [phone] Cholesterol 176 mg/dL Less Than 200 101 High Density Lipoprotein 66 mg/dL High 40-60 102 Cholesterol/HDL Ratio 2.67 AVERAGE 1-4.97 Low Density Lipoprotein 105 mg/dL High Less Than 100 103 Laboratory test 08/11/2008 [facility] TSH 1.07 MIU/ML 0.34- 5.60 finding [address] [place] [address] [phone] Laboratory test 01/01/2008 [facility] PSA,Diagno 1.59 NG/ML 0 -4 104 finding 101 [facility] [place] [address] [phone] CBC With 07/10/2007 [facility] White 4.7 CUMM Low 4.8-10.8 Electronic Diff [address] [facility] [place] [address] Count [phone] Abs Basophils 0 0-0.2 Abs Eosinophils 0 [...] 14 % 10.5-15 Comp Metabolic Panel 07/10/2007 [facility] One Over Creatinine 1.[address] [place], [place] [address] [phone] Anion Gap -3.0 mmol/L Low 2-11 105 [...] Creatinine 0.9 mg/dL 0.5-1.4 Lipid Profile 07/10/2007 [facility] Cholesterol/HDL 2.87 1- 4.97 (Trig/Chol/HDL) [address] Ratio AVERAGE [place], [place] [id number] [phone] Cholesterol 172 mg/dL Less Than 200 106 Triglyceride 31 mg/dL Low 40-200 High Density Lipoprotein 60 mg/dL 40-60 107 Low Density Lipoprotein 106 mg/dL High Less Than 100 108 Laboratory test 07/10/2007 [facility] PSA Screening 2.29 NG/ML 0-4 [address] [place] [address] [phone] TSH 1.46 MIU/ML 0.34-5.60 1 Because ethnic [...] 5 Kidney failure <15 (or dialysis) 2 [facility] Severe Sepsis and Septic Shock Management [...] may interfere with detection of blood. 5 Supervisor Whipped Topping: [id number] 6 Because ethnic data is not always [...] may interfere with detection of blood. 9 [facility] Severe Sepsis and Septic Shock Management Bundle [...] pg/mL: likely moderate to severe CHF 13 Supervisor Whipped Topping: [id number] 14 Desirable: <150 Borderline High: 150-199 High: 200-499 Very High: >500 15 Desirable: <200 Borderline High: 200-239 High: >239 16 Low: <40 Desirable: 40-60 High: >60 17 Desirable: <100 Near Optimal: 100-129 Borderline High: 130-159 High: 160-189 Very High: >189 18 Serum levels of PSA measured using the [employer] DXI Hybritech immunoassay should not be interpreted as absolute evidence of the presence or absence of disease. The PSA value should be used in conjunction with other pertinent clinical diagnostic procedures. The values obtained with different assay methods or kits cannot be used interchangeably. 19 [id number] 20 SEE RESULT BELOW Name: CHRIS WALLIS JR : [address]: Amee Banuelos MD Acct: [id number] Unit: [id number] AGE: 71 Location: [facility] Re10/07/16 SEX: M Status: DEP ER SPEC: [id number] JC: 10/07/[address] [facility] [address]: Amee Banuelos MD REQ: [id number] RECD: 10/07/16 STATUS: NATANAEL ESCOBAR DR: Geraldo Saab III, MD _ SOURCE: URINE SPDESC: ORDERED: Urine Culture COMMENTS: [id number] Procedure Result Reported Site Urine Culture Final 10/08/16- 1250 ML No Growth (<1,000 CFU/mL) * ML - MAIN LAB ([facility]) . END OF REPORT * ML=Testing performed at Main Lab DEPARTMENT OF PATHOLOGY, [address] [place] [address] Jimmy Prater M.D. Director [facility] # [id number] 21 Supervisor Whipped Topping: [id number] 22 >100 to <200 pg/mL: likely compensated [...] pg/mL: likely moderate to severe CHF 31 [facility] Severe Sepsis and Septic Shock Management [...] 0.5 ng/mL Consistent with diagnosis of [place] 35 Serum levels of PSA measured using the [employer] DXI Hybritech immunoassay should not be interpreted as absolute evidence of the presence or absence of disease. The PSA value should be used in conjunction with other pertinent clinical diagnostic procedures. The values obtained with different assay methods or kits cannot be used interchangeably. 36 CALL RESULTS TO TODAY [phone] Reference Range and Interpretation: TnI (ng/mL) Interpretation Less Than 0.03 ng/mL Not supportive of diagnosis of [place] 0.03 - 0.50 ng/mL Indeterminate: suggest serial studies if clinically indicated. Greater than 0.5 ng/mL Consistent with diagnosis of [place] 38 CALL RESULTS TO TODAY [phone] 39 Because ethnic data is not always [...] and in selective patients <6.0%.Please refer to [employer] Diabetes Association Diabetic care guidelines for further [...] levels of PSA measured using the Joshua [employer] DXI Hybritech immunoassay should not be interpreted [...] levels of PSA measured using the [employer] DXI Hybritech immunoassay should not be interpreted [...] LEVELS OF PSA MEASURED USING THE JOSHUA Schm[employer]zer ACCESS HYBRITECH IMMUNOASSAY SHOULD NOT BE INTERPRETED [...] be used interchangeably. 69 RUN DATE: 07/19/11 [facility] NMI LIVE PAGE 1 RUN TIME: 1149 Specimen Inquiry RUN USER: INTERFACE Name: CHRIS WALLIS JR Accaleena#: [id number] Status: REG REF Re07/17/11 Age/Sex: 66/M Unit#: [id number] [facility] SPEC #: [id number] JC: 07/17/11 STATUS: COMP REQ #: [id number] RECD: 07/17/[address] [facility] [address]: Geraldo Saab III, MD SOURCE: URINE ENTR: 07/17/11 [facility] DR[facility] ORDERED: URINE C S QUERIES: MEDENT REQUISITION # [id number] ACT WKST: UR 07/19/11 #1 Procedure Result [...] *These antibiotics are not available in the [facility] Formulary. Contact the Microbiology Department for any additional antibiotic reporting. - [facility] State Permit #[id number] [facility] [employer] [place] [address] DEPARTMENT OF PATHOLOGY, [facility] [employer] [place] [address] [facility] Permit #[id number] Jimmy Prater M.D. Director Michelle Nelson M.D. Coating [employer] Embossing Unit Operator 70 Anion gap measurement may be of limited value in the presence of any alkalosis, especially in a combined acid base disorder. . 71 A metabolite of Naproxen, O-desmethylnaproxen, has been shown to interfere with the [place] method for measuring total bilirubin. Samples from [...] <15 (or dialysis) 73 Test Performed by: [facility] Dpt of Lab Med and Pathology [address] [place] [address] Orchid Transplanter: Kobe Jimenez III, M.D. 74 Serologic response to B. burgdorferi infection is not detected, but cannot rule out early infection during which low or undetectable antibody levels to B. burgdorferi may be present. If clinically indicated, a new serum specimen should be submitted in 7-14 days. Test Performed by: [facility] Dpt of Lab Med and Pathology [address] [place] [address] Orchid Transplanter: Kobe Jimenez III, M.D. 75 Test Performed by: [facility] Dpt of Lab Med and Pathology [address] [place] [address] Orchid Transplanter: Kobe Jimenez III, M.D. 76 Test Performed by: [facility] Dpt of Lab Med and Pathology [address] [place] [address] Orchid Transplanter: Kobe Jimenez III, M.D. 77 * SERUM LEVELS OF PSA MEASURED USING THE JOSUHA Schmoozer ACCESS HYBRITECH IMMUNOASSAY SHOULD NOT BE INTERPRETED ABSOLUTE EVIDENCE OF THE PRESENCE OR ABSENCE OF DISEASE. THE PSA VALUE SHOULD BE USED IN CONJUNCTION WITH OTHER PERTINENT CLINICAL DIAGNOSTIC PROCEDURES. The values obtained with different assay methods or kits cannot be used interchangeably. 78 * SERUM LEVELS OF PSA MEASURED USING THE OJSHUA Schmoozer ACCESS HYBRITECH IMMUNOASSAY SHOULD NOT BE INTERPRETED [...] has been shown to interfere with the [place] method for measuring total bilirubin. Samples from [...] change was based on recommendations from the [employer] Diabetes Association. 92 Please note change in reference range effective 07 . 93 A metabolite of Naproxen, O-desmethylnaproxen, has been shown to interfere with the [place] method for measuring total bilirubin. Samples from [...] LEVELS OF PSA MEASURED USING THE JOSHUA Schmoozer ACCESS HYBRITECH IMMUNOASSAY SHOULD NOT BE INTERPRETED [...] change was based on recommendations from the [employer]. 99 Please note change in reference range effective 07 . 100 A metabolite of Naproxen, O-desmethylnaproxen, has been shown to interfere with the [place] method for measuring total bilirubin. Samples from [...] SERUM LEVELS OF PSA MEASURED USING THE [employer] ACCESS HYBRITECH IMMUNOASSAY SHOULD NOT BE INTERPRETED [...] SERUM LEVELS OF PSA MEASURED USING THE [employer] ACCESS HYBRITECH IMMUNOASSAY SHOULD NOT BE INTERPRETED ABSOLUTE EVIDENCE OF THE PRESENCE OR ABSENCE OF DISEASE. THE PSA VALUE SHOULD BE USED IN CONJUNCTION WITH OTHER PERTINENT CLINICAL DIAGNOSTIC PROCEDURES. Procedures Date Code Description Status 07/10/2018 52187 EKG Tracing & Interpretation Completed 05/20/2018 41621 EKG Tracing & Interpretation Completed 01/22/2018 52155 Neurostimulator Pulse Generator Analysis W/O Completed Reprogramming 12/19/2017 25052 EKG Tracing & Interpretation Completed 08/07/2017 95335 ECG Monitor/Recording W/Visual Superimposition Scanning Completed 07/13/2017 95370 Treadmill Interp/Report Only Completed 07/13/2017 02552 Stress Test Supervsn W/Out I/R Completed 07/10/2017 51360 ECHO Transthoracic, Real-Time 2D With Doppler And Color Completed Flow 07/10/2017 42371 ECHO Transthoracic, Real-Time 2D With Doppler And Color Completed Flow 06/21/2017 97103 EKG Tracing & Interpretation Completed 09/04/2016 05474700 Colonoscopy Completed 06/20/2016 25731 EKG Tracing & Interpretation Completed 04/07/2016 50374 EKG Tracing & Interpretation Completed 01/05/2016 98152 EKG Tracing & Interpretation Completed 04/21/2015 27333 EKG Tracing & Interpretation Completed 12/16/2014 21708 ECHO Transthoracic, Real-Time 2D With Doppler And Color Completed Flow 12/08/2014 27245 EKG Tracing & Interpretation Completed 12/04/2014 15362 Treadmill Interp/Report Only Completed 12/04/2014 84562 Stress Test Supervsn W/Out I/R Completed 09/24/2014 30144 Pulmonary Function><Bronchodil Completed 09/24/2014 01663 Diffusing Capacity Completed 09/24/2014 42050 Plethysmography Determination Lung Volumes & Per Airway Completed Resist 09/09/2014 28383 ECHO Transthoracic, Real-Time 2D With Doppler And Color Completed Flow 09/07/2014 31666 EKG Tracing & Interpretation Completed 06/18/2014 38823 Repair Hernia Inguinal > 5Yrs, Reducible Completed 06/18/2014 71922 Repair Hernia Umbilical > 5 Yrs, Reducible Completed 06/12/2014 27033 ECHO Transthoracic, Real-Time 2D With Doppler And Color Completed Flow 05/29/2014 83735 Treadmill Interp/Report Only Completed 05/29/2014 00202 Stress Test Supervsn W/Out I/R Completed 04/21/2014 53730 EKG Tracing & Interpretation Completed 09/24/2013 49942 Holter Monitoring 24 HR New Completed 09/09/2013 39223 ECHO Stress Test Incl Perf Contiuous ekg Monitoring Completed W/Phys Superv 09/05/2013 95770 ECHO Transthoracic, Real-Time 2D With Doppler And Color Completed Flow 08/08/2013 05304 EKG Tracing & Interpretation Completed 05/30/2012 12380 EKG Tracing & Interpretation Completed 11/23/2011 53935 Treadmill Interp/Report Only Completed 11/23/2011 23713 Stress Test Supervsn W/Out I/R Completed 11/22/2011 90460 ECHO Stress Test Incl Perf Contiuous ekg Monitoring Completed W/Phys Superv 11/22/2011 21051 ECHO Stress Test Incl Perf Contiuous ekg Monitoring Completed W/Phys Superv 08/24/2011 12870 Color Flow Doppler/Interp & Reprt Completed 08/24/2011 08172 Pulse Wave/Continuous-Interp.RPT Completed 08/24/2011 32611 ECHO Transthorasic Realtime 2D W Doppler & Color Flow Completed Hosp 08/17/2011 48305 EKG Tracing & Interpretation Completed 09/22/2005 48829059 Colonoscopy Completed Encounters Type Date Location Provider Dx Diagnosis Office Visit 06/24/2018 Orthopedic Services Danny Mir MD R60.0 Localized edema 11:30a Of [facility] M25.561 Pain in right knee R29.6 Repeated falls Office Visit 06/12/2018 1:00p Orthopedic Danny Mir M25.561 Pain in Services Of [facility] CASTRO right knee M25.461 Effusion, right knee R29.6 Repeated falls S80.01xA Contusion of right knee, initial encounter Office Visit 06/04/2018 9:00a [place] Neri Zavala [facility]'s Services Of Nena Salas disease I95.1 Orthostatic hypotension G47.33 Obstructive sleep apnea (adult) (pediatric) Office Visit 05/20/2018 2:00p [facility] Isabel Bruno I95.1 Orthostatic Of [facility] Sunny N.PPriti hypotension I49.3 Ventricular premature depolarization I49.5 Sick sinus syndrome R06.00 Dyspnea, unspecified Office Visit 04/29/2018 3:20p [facility] Internal Geraldo Cruz M54.5 Low back pain Kelsey - Josue Saab K59.00 Constipation, unspecified R12 Heartburn Office Visit 04/16/2018 [place]p [place] [facility] [place] disease G47.33 Obstructive sleep apnea (adult) (pediatric) R42 Dizziness and giddiness R26.81 Unsteadiness on feet Office Visit 03/15/2018 1:45p [place] [facility]ic Drew Thomas G2Nguyễn Parkinson's Services Of [facility] MPritiDPriti disease G47.33 Obstructive sleep apnea (adult) (pediatric) R42 Dizziness and giddiness R26.81 Unsteadiness on feet Office Visit 01/22/2018 9:15a [place] [facility] Drew Thomas G2Nguyễn Parkinson's Services Of [facility] MPritiDPriti disease G47.33 Obstructive sleep apnea (adult) (pediatric) R42 Dizziness and giddiness R26.81 Unsteadiness on feet Z96.89 Presence of other specified functional implants Office Visit 12/19/2017 2:30p [place] [facility] Nahun Holder G47.33 Obstructive sleep Josue Clay apnea (adult) (pediatric) I49.3 Ventricular premature depolarization R42 Dizziness and giddiness I49.5 Sick sinus syndrome Office Visit 10/19/2017 Pulmonology And Shira G47.33 Obstructive sleep 10:30a Sleep Services Of SOLANGE Loredo RN, apnea (adult) [facility] EXTRACT MIXER-BC (pediatric) R68.84 Jaw pain Office Visit 08/21/2017 11:30a [facility] Isabel Correa, R42 Dizziness and Of [facility] Ben giddiness I49.3 Ventricular premature depolarization R94.39 Abnormal result of other cardiovascular function study R06.00 Dyspnea, unspecified Office Visit 08/15/2017 [facility] Geraldo E. 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 Office Visit 07/27/2017 Pulmonology And Shira G47.33 Obstructive sleep 10:45a Sleep Services Of [place], apnea (adult) [facility] RN, ASHLEY-BC (pediatric) Office Visit 07/11/2017 [facility] Ck Bruno G2Nguyễn Parkinson's disease 3:45p Services Of [facility] Josue Alaniz R68.84 Jaw pain Office Visit 06/21/2017 9:00a [facility] Nahun Holder G2Nguyễn Parkinson 's Of [facility] Josue Clay disease R94.39 Abnormal result of other cardiovascular function study R42 Dizziness and giddiness R06.00 Dyspnea, unspecified I49.3 Ventricular premature depolarization Office Visit 04/12/2017 [facility] Geraldo Cruz M26.623 Arthralgia of 11:40a Kelsey Saab M.D. bilateral [place] temporomandibular joint Office Visit 04/10/2017 [facility] Geraldo Cruz Z00.00 Encntr for [...] Sleep apnea, unspecified Office Visit 07/11/2016 9:40a [facility] John Dyer, POCKET SECRETARY ASSEMBLER M79.672 Pain in left Medicine foot Office Visit 06/20/2016 10:20a [place] [facility] Nahun Holder G20 Parkinson 's Josue Clay disease G47.30 Sleep apnea, unspecified R60.9 Edema, unspecified Office Visit 06/07/2016 3:30p [place] [facility] Ck Bruno G2Nguynễ Parkinson's Services Of [facility] Josue Alaniz disease Office Visit 05/18/2016 10:40a [facility] Kusum Bermudez, J20.9 Acute bronchitis, Medicine N.P. unspecified J01.90 Acute sinusitis, unspecified Office Visit 05/05/2016 [facility]monology And Shira G47.33 Obstructive sleep 11:45a Sleep Services Of [place], RN, apnea (adult) [facility] EXTRACT MIXER-BC (pediatric) Office Visit 04/07/2016 [facility] Geraldo Cruz Z00.01 Encounter for 9:40a Kelsey Saab M.D. general adult [place] medical exam w abnormal findings G20 Parkinson's disease G47.30 Sleep apnea, unspecified E78.00 Pure hypercholesterolemia, unspecified N40.0 Benign prostatic hyperplasia without lower urinry tract symp R60.0 Localized edema Office Visit 03/10/2016 11:00a [facility] Geraldo Cruz J06.9 Acute upper Medicine - Josue Saab respiratory [place] infection, unspecified Office Visit 01/28/2016 9:00a [facility] Maxi D17.21 Benign lipomatous Kelsey Kaiser M.D. neoplasm of skin, [place] subcu of right arm R29.6 Repeated falls R22.31 Localized swelling, mass and lump, right upper limb Office Visit 01/05/2016 [facility] Geraldo Cruz Z01.810 Encounter for 11:20a Kelsey Saab M.D. preprocedural [place] cardiovascular examination G20 Parkinson's disease G47.30 Sleep apnea, unspecified Office Visit 11/24/2015 [facility] Ck Bruno G2Nguyễn Parkinson's 9:15a Clinic Josue Alaniz disease Office Visit 06/01/2015 [place] [facility] Ck Bruno G2Nguyễn Parkinson's 2:45p Services Of [facility] Josue Aalniz disease Office Visit 04/21/2015 [place] [facility] Nahun Holder G20 Parkinson's 11:40a Josue Clay disease E78.0 Pure hypercholesterolemia R07.9 Chest pain, unspecified R06.00 Dyspnea, unspecified R94.31 Abnormal electrocardiogram [ECG] [EKG] Office 02/10/2015 [place] Ck Bruno G20 Parkinson's disease Visit 3:15p Neurologic Josue Alaniz Services Of [facility] Office 12/24/2014 [place] Nahun Holder E78.0 Pure hypercholesterolemia Visit 2:40p Cardiology Josue Clay R07.9 Chest pain, unspecified R06.00 Dyspnea, unspecified R00.2 Palpitations Office Visit 12/03/2014 2:00p [place] [facility] HEATHER Marquez 426.4 Right Bundle Branch Block 272.0 Hypercholesterolemia Pure 786.50 Pain Chest Unspec 427.69 Premature Beats Other Office Visit 12/02/2014 4:00p [facility] Rosaline Cruz 786.50 Pain Chest Unspec Kelsey Saab M.D. Office Visit 11/18/2014 2:30p [place] [facility] Ck Bruno 327.23 Obstructive Sleep Services Of Nena Alaniz M.D. Apnea Adult & Pediatric 332.0 Paralysis Agitans Office Visit 10/06/2014 [facility]monology And Shira 327.23 Obstructive Sleep 10:15a Sleep Services Of SOL[place], RN, Apnea Adult & [facility] EXTRACT MIXER-BC Pediatric Office Visit 10/01/2014 Pulmonology And Sarah Muniz, 786.09 Dyspnea & 2:45p Sleep Services Of Respiratory Direct Customer Service Representative Abnormalities Other Office Visit 09/07/2014 [place] [facility] Nahun Holder 786.09 Dyspnea & 3:40p Josue Clay Respiratory Abnormalities Other 794.31 Electrocardiogram (ECG) (EKG) Abnormal 426.4 Right Bundle Branch Block Office Visit 09/03/2014 1:00p Pulmonology And Josef Malik, 786.05 Shortness Of Sleep Services Of Josue Breath Direct Customer Service Representative Office Visit 08/31/2014 2:40p [facility] Rosaline Cruz V06.1 Diphtheria- Tetan Medicine Josue Saab us-Pertusis Combined (DTaP) V03.82 Streptococcus Pneumoniae Vaccination Spec Other 786.05 Shortness Of Breath Office Visit 05/29/2014 11:30a [place] [facility] Nahun Holder 550.90 Hernia Inguinal Josue Clay W/O Obstruct Or Gangrene Unilateral Unspec 272.0 Hypercholesterolemia Pure 426.4 Right Bundle Branch Block 794.31 Electrocardiogram (ECG) (EKG) Abnormal 414.01 Coronary Atherosclerosis [place] Office Visit 05/21/2014 4:00p [facility] Rosaline Cruz 550.90 Hernia Inguinal Kelsey Saab M.D. W/O Obstruct Or Gangrene Unilateral Unspec Office Visit 05/07/2014 4:00p [facility] Rosaline Cruz 550.90 Hernia Inguinal Kelsey Saab M.D. W/O Obstruct Or Gangrene Unilateral Unspec Office Visit 04/28/2014 2:45p [place] [facility] Ck SPriti 332.0 Paralysis Agitans Services Of Nena Alaniz M.D. Office Visit 04/23/2014 9:20a [facility] Rosaline Cruz 465.9 URI Upper Medicine Josue Saab Respiratory Infections Acute Unspec Sites 332.0 Paralysis Agitans Office 04/21/2014 [place] Nahun Holder 272.0 Hypercholesterolemia Pure Visit 3:00p Cardiology Josue Clay 794.31 Electrocardiogram (ECG) (EKG) Abnormal 426.4 Right Bundle Branch Block Office Visit 03/02/2014 [facility] Rosaline Chow E. 465.9 URI Upper Respiratory 2:20p Kelsey Saab M.D. Infections Acute Unspec Sites Office Visit 10/29/2013 Maddie Bruno 332.0 Paralysis Agitans 1:45p Neurologic Josue Alaniz Services Of [facility] Office Visit 08/08/2013 Maddie Holder 794.31 Electrocardiogram 3:20p Cardiology Josue Clay (ECG) (EKG) Abnormal 332.0 Paralysis Agitans 272.0 Hypercholesterolemia Pure 414.01 Coronary Atherosclerosis [place] 782.3 Edema Office Visit 07/15/2013 3:00p [place] Binu Bruno 332.0 Paralysis Services Of [facility] Josue Alaniz Agitans Office Visit 06/23/2013 11:00a [facility] Internal Geraldo Cruz 790.21 Impaired Fasting Kelsey Saab M.D. Glucose 780.57 Unspecified Sleep Apnea 332.0 Paralysis Agitans 272.0 Hypercholesterolemia Pure Office Visit 01/23/2013 10:30a [facility] Samra Alexis, 477.9 Rhinitis Medicine N.P. Allergic Cause Unspec 465.9 URI Upper Respiratory Infections Acute Unspec Sites Office Visit 01/15/2013 Maddie Bruno 332.0 Paralysis Agitans 2:45p Binu Alaniz M.D. Services Of [facility] Office Visit 08/27/2012 [facility] Geraldo Cruz 553.1 Hernia Umbilical 1:00p Kelsey Saab M.D. Office Visit 08/02/2012 [facility] Geraldo Cruz 724.5 Backache Unspec 10:20a Kelsey Saab M.D. Office Visit 07/16/2012 Maddie Bruno 332.0 Paralysis Agitans 2:45p Binu Alaniz M.D. Services Of [facility] Office Visit 06/19/2012 [facility] Geraldo Cruz 719.46 Pain Joint Lower 2:40p Kelsey Saab M.D. Leg Office Visit 06/10/2012 [facility] Geraldo Cruz 381.19 Otitis Media 10:40a Kelsey Saab M.D. Chronic Serous Other Office Visit 05/30/2012 [place] Nahun Holder 786.09 Dyspnea & 10:20a Cardiology Josue Clay Respiratory Abnormalities Other 426.52 Right Bundle Branch Block W/ Left Anterior Fascicular Block 794.31 Electrocardiogram (ECG) (EKG) Abnormal Office Visit 05/03/2012 11:20a [facility] Geraldo Cruz 465.9 URI Upper Kelsey Saab M.D. Respiratory Infections Acute Unspec Sites 382.9 Otitis Media Unspec Office Visit 04/03/2012 3:40p [facility] Geraldo Cruz 726.19 Shoulder Disorders Kelsey Saab M.D. Other Spec Office Visit 02/21/2012 1:20p [facility] Geraldo Cruz 786.09 Dyspnea & Kelsey Saab M.D. Respiratory Abnormalities Other Office Visit 01/16/2012 2:30p [place] Ck Bruno 332.0 Paralysis Agitans Neurologic Josue Alaniz Services Of [facility] Office Visit 12/20/2011 10:00a [facility] Geraldo Cruz 780.79 Malaise And Fatigue Kelsey Saab M.D. Other 786.09 Dyspnea & Respiratory Abnormalities Other 600.20 Benign Localized Hyperplasia Prostate W/O Urinary Obstruct Office Visit 11/24/2011 11:15a [place] [facility] Ck Bruno 780.93 Memory Loss Services Of [facility] Josue Alaniz 780.79 Malaise And Fatigue Other Office Visit 11/22/2011 11:30a [place] [facility] Nahun Holder 786.05 Beto M.D. Breath 794.31 Electrocardiogram (ECG) (EKG) Abnormal 780.79 Malaise And Fatigue Other Office Visit 11/01/2011 1:00p [facility] Geraldo Cruz 786.05 Shortflorecita Of Kelsey Saab M.D. Breath 780.93 Memory Loss Office Visit 08/17/2011 1:40p [facility] Geraldo Cruz 786.09 Dyspnea & Kelsey Saab M.D. Respiratory Abnormalities Other Office Visit 07/17/2011 1:00p [facility] Geraldo Cruz 599.0 UTI Urinary Tract Kelsey Saab M.D. Infection Site Not Spec 790.21 Impaired Fasting Glucose Office Visit 07/07/2011 11:40a [facility] Geraldo Cruz 780.79 Malaise And Kelsey Saab M.D. Fatigue Other 784.1 Throat Pain Office Visit 06/20/2011 10:40a [facility] Geraldo Cruz 780.79 Malaise And Kelsey Saab M.D. Fatigue Other Office Visit 06/13/2011 1:40p [employer] [facility] Internal Geraldo E. 780.79 Malaise And [facility] Josue Saab Fatigue Other Office Visit 04/19/2011 10:00a [employer] Internal Geraldo E. 719.46 Pain Joint Lower Medicine Josue Saab Leg Office Visit 12/06/2010 10:00a DO Not Use [employer] Customer [employer] Representative Hominy 601.1 Prostatitis AT Cuate Sparks M.D. Office Visit 11/24/2010 1:00p DO Not Use [employer] Representative Geraldo E. V70.0 Examination AT Oli Saab M.D. General Medical Routine AT Health Care Facility 790.21 Impaired Fasting Glucose 477.9 Rhinitis Allergic Cause Unspec 723.1 Cervicalgia 600.20 Benign Localized Hyperplasia Prostate W/O Urinary Obstruct Office Visit 07/28/2010 4:00p DO Not Use [employer] Representative Geraldo E. 726.19 Shoulder AT Oli Saab M.D. Disorders Other Spec 780.79 Malaise And Fatigue Other V03.82 Streptococcus Pneumoniae Vaccination Spec Other Office Visit 04/15/2010 9:20a DO Not Use [employer] Representative Geraldo E. 465.9 URI Upper AT Oli Saab M.D. Respiratory Infections Acute Unspec Sites Office Visit 11/25/2009 3:40p DO Not Use [employer] Representative Geraldo E. 604.90 Orchitis & AT Oli Saab M.D. Epididymitis Unspec Office Visit 09/09/2009 9:00a DO Not Use [employer] Representative Geraldo E. V70.0 Examination General AT Oli Saab M.D. Medical Routine AT Health Care Facility 790.21 Impaired Fasting Glucose 600.20 Benign Localized Hyperplasia Prostate W/O Urinary Obstruct Office Visit 05/31/2009 3:20p DO Not Use [employer] Service Representative Geraldo E. 300.02 Anxiety Disorder AT Oli Saab M.D. Generalized 796.2 Blood Pressure Reading Elevated W/O Hypertension Office Visit 05/03/2009 2:40p DO Not Use [employer] Representative Geraldo E. 465.9 URI Upper AT Oli Saab M.D. Respiratory Infections Acute Unspec Sites 780.79 Malaise And Fatigue Other Office Visit 12/17/2008 11:15a DO Not Use [employer] Service Representative Geraldo E. 465.9 URI Upper AT Keyla PageD. Respiratory Infections Acute Unspec Sites Office Visit 09/07/2008 9:00a [facility] Geraldo E. V05.8 Single Disease AT [facility] Josue Saab Spec Other Mineral Vaccination & Inoculation V70.0 Examination General Medical Routine AT Health Care Facility 602.9 Prostate Disorder Unspec Office Visit 12/20/2007 10:15a [facility] Geraldo E. 465.9 URI Upper Assoc AT Josue Saab Respiratory [facility] Infections Acute Unspec Sites Office Visit 11/27/2007 10:30a [facility] Geraldo E. 723.1 Cervicalgia Assoc AT Josue Saab [facility] 780.52 Insomnia Unspecified Office Visit 09/05/2007 9:30a [facility] AT Geraldo Saab, 724.2 [facility] Josue 602.9 Prostate Disorder Unspec 477.9 Rhinitis Allergic Cause Unspec V70.0 Examination General Medical Routine AT Health Care Facility Office Visit 06/20/2007 3:15p [facility] Geraldo E. 465.9 URI Upper Assoc AT Josue Saab Res[facility] Infections Acute Unspec Sites Office Visit 03/29/2007 9:15a [facility] Geraldo E. 724.2 [facility] AT Josue Saab [facility] Plan of Treatment Future Appointment(s):07/26/2018 12:30 pm - Drew Thomas M.D. at [facility]10/03/2018 3:20 pm - Nahun Clay M.D. at [facility]08/09/2018 3:00 pm - Isabel Correa N.P. at [facility]10/22/2018 2:15 pm - Shira Loredo DNP, RN, EXTRACT MIXER-BC at [facility]
--- OUTSIDE RECORDS SUMMARY | 2018-08-08 14:38 | XMS REPORT | Continuity of Care Document ---
:1945 External Reference #:[id number] Author Name Aminta Ovalle Care Team Providers Name Role Phone Geraldo Saab III, MD Primary Care Physician Unavailable Payers Date Identification Numbers Payment Provider Subscriber Effective: 2009 Policy Number: [id number] Medicare Chris Wallis PayID: [id number] [address] [place] [address] Policy Number: [id number] [facility] Chris Wallis Group Number: [id number] [address] PayID: [id number] [place] [address] Advance Directives Description No Information Available Problems [...] apnea of adult Shira Loredo DNP, RN, MANAGER SALES- Onset: Dizziness and giddiness Drew Thomas M.D. [...] Unknown Quit in 1982 Smoking Status Reviewed: 07/11/18 Quit in 1982 ETOH Use Consumes 1 [...] Medications SIG Qnty Indications Ordering Provider Date Vesna Salcedo S80.01xA Danny Mir MD 06/12/2018 Misc G20 Sinemet CR 3 tabs by mouth 360tabs Andreas Lundy MD 06/04/2018 25-100mg four times a day Tablets ER Melatonin 1 cap at bedtime Drew Thomas, 03/15/2018 5mg Capsules M.D. Famotidine take one [...] Carbidopa-Levodopa ER take 1 pill 4 120tabs Mekhi0 Drew 03/15/2018 - times a day, Josue Thomas 06/03/2018 50-200mg Tablets ER 6am, 10am, 2pm and 6pm Carbidopa-Levodopa ER take 1 pill 90tabs G20 Drew 01/22/2018 - three times at Josue Thomas 03/15/2018 50-200mg Tablets ER day at 6am, 12 at night and 6 at night Trazodone HCL 1 by mouth every 30tabs G47.33 Drew 01/22/2018 - 50mg night Josue Thomas 03/14/2018 Tablets Carbidopa-Levodopa 1 po four times 120tabs G47.33 Ck Bruno 01/11/2018 - a day Josue Alaniz 01/22/2018 25-100mg Tablets Carbidopa-Levodopa ER take 1 pill bu 90tabs Drew 12/04/2017 - mouth andriy Thomas M.D. 01/11/2018 50-200mg Tablets ER times a day at 6am, 12pm and 6 pm [facility] 2 grams of 300gm M79.672 John [...] mouth Geraldo Cruz 04/21/2015 - 2mg tid Jouse Saab 06/01/2015 Tablets Ropinirole HCL 1 po [...] every Unknown - day 03/10/2016 81mg Tablets Neupro apply once daily Unknown - 2mg/24HR Patches [...] 100mg at 6pm and one 05/19/[address] at bedtime Ciclopirox Olamine apply to penis 30gm Unknown - qd as needed 07/09/2018 0.77% Cream Nystatin topically bid 60g Unknown - [id number] prn 01/28/2016 Cream Metamucil Original po with [...] qd Unknown - Strength 06/19/[address] Medications Administered in Office Medication SIG Qnty Indications Ordering Provider Date Influenza Virus Vaccine Geraldo Saab M.D. 11/24/2014 Injection Influenza Virus Vaccine Unknown 12/24/2013 Injection Immunizations CPT Code Status Date Vaccine Lot # [id number] Given 12/11/2017 Fluzone High Dose [id number] Given 01/14/2016 Fluzone High Dose 28086 Given 08/31/2014 Tdap - Tetanus/Diptheria/Acellular Pertussis [id number] 72701 Given 08/31/2014 Pneumococcal Conjugate Vaccine 13 Valent For [id number] Intramuscular Use 24330 Given 07/28/2010 Pneumonia Vaccine [id number] 06880 Given 01/14/2009 Influenza Virus 3Yrs & Over 87939 Given 09/07/2008 Zoster (Zostavax) 16344 Given 01/01/2008 Influenza Virus 3Yrs & Over 85591 Given 07/13/2004 Td (History By Patient) Vital Signs Date Vital Result Comment 07/11/2018 4:11pm Height 70 inches 5'10" Weight [...] H/L Range Note CBC Auto Diff 06/18/2018 [facility] White Blood 9.7 10^3/uL N 3.5-10.[address] [place] [address] [phone] Red Blood Count 4.16 10^6/uL Low 4.18-5.48 [...] Red Blood Cells % 0.1 Inr/Protime 06/18/2018 [facility] Inr 0.97 N 0.77-1.[address] [place] [address] [phone] Laboratory test 06/18/2018 [facility] Partial 27.7 seconds N 26.0-36.[address] [place] [address] PTT [phone] Laboratory test 06/18/2018 [facility] Creatine 57 U/L N 10- [address] Kinase(CK) [place] [address] [phone] Comp Metabolic 06/18/2018 [facility] Sodium 137 mmol/L N 135- [address] [place] [address] [phone] Potassium 4.1 mmol/L N 3.5-5.0 Chloride 106 [...] 143.2 >60 1 CBC Auto Diff 06/07/2018 [facility] White Blood 7.5 10^3/uL N 3.5-10.[address] [place] [address] [phone] Red Blood Count 4.02 10^6/uL Low 4.18-5.48 [...] Blood Cells % 0.1 Laboratory test 06/07/2018 [facility] Lactic Acid 0.7 mmol/L N 0.5-2.0 2 finding [address] [place] [address] [phone] Comp Metabolic 06/07/2018 [facility] Sodium 138 mmol/L N 135- 145 Panel [address] [place] [address] [phone] Potassium 4.1 mmol/L N 3.5-5.0 Chloride 106 [...] Egfr 111.4 >60 3 Urinalysis Profile 06/07/2018 [facility] Urine Color Yellow [address] [place] [address] [phone] Urine Appearance Clear Urine Specific Ambrose 1.026 N 1.010-1.030 Urine pH 5.0 N 5-9 Urine Urobilinogen Negative Negative Urine Ketones Trace Abnormal Negative Urine Protein Negative Negative Urine Leukocytes Negative Negative Urine Blood Negative Negative * * Abnormal Negative 4 Urine Nitrite Negative Negative Urine Bilirubin Negative Negative Urine Glucose Negative Negative Laboratory test 06/07/2018 [facility] Point of Care 130 mg/dL High 70-100 [address] [place] [address] [phone] Comp Metabolic 05/20/2018 [facility] Sodium 140 mmol/L N 135- [address] [place] [address] [phone] Potassium 4.6 mmol/L N 3.5-5.0 Chloride 104 [...] 81.1 >60 6 CBC Auto Diff 05/20/2018 [facility] White Blood 6.4 10^3/uL N 3.5-10.[address] [place] [address] [phone] Red Blood Count 4.28 10^6/uL N 4.00-5.40 [...] Blood Cells % 0 Laboratory test 05/20/2018 [facility] Magnesium 2.2 mg/dL N 1.9-2.7 finding [address] [place] [address] [phone] Cortisol 8.10 g/dL 7 B-Type Natriuretic Peptide BNP 32 pg/mL <=100 Inr/Protime 02/10/2018 [facility] Inr 0.95 N 0.77-1.02 [address] [place] [address] [phone] Urinalysis Profile 02/10/2018 [facility] Urine Color Yellow [address] [place] [address] [phone] Urine Appearance Clear Urine Specific Ambrose 1.020 N 1.010-1.030 Urine pH 6.0 N 5-9 Urine Urobilinogen Negative Negative Urine Ketones Trace Abnormal Negative Urine Protein Negative Negative Urine Leukocytes Negative Negative Urine Blood Negative Negative * * Abnormal Negative 8 Urine Nitrite Negative Negative Urine Bilirubin Negative Negative Urine Glucose Negative Negative CBC Auto Diff 02/10/2018 [facility] White Blood 5.8 10^3/uL N 3.5-10.[address] [place] [address] [phone] Red Blood Count 4.67 10^6/uL N 4.00-5.40 [...] Blood Cells % 0 Laboratory test 02/10/2018 [facility] Lactic Acid 0.8 mmol/L N 0.5-2.0 9 finding [address] [place] [address] [phone] Comp Metabolic 02/10/2018 [facility] Sodium 138 mmol/L N 135- 145 Panel [address] [place] [address] [phone] Potassium 4.7 mmol/L N 3.5-5.0 Chloride 101 [...] Egfr 95.2 >60 10 Laboratory test 02/10/2018 [facility] Magnesium 2.0 mg/dL N 1.9-2.[address] [place] [address] [phone] C Reactive Protein < 1.00 mg/L N <8.01 Troponin-I (TnI) 0.00 ng/mL <0.04 TSH (Thyroid Stim Horm) 1.44 mcIU/mL N 0.34-5.60 CBC Auto Diff 07/31/2017 [facility] White Blood 5.7 10^3/uL N 3.5-10.[address] [place] [address] [phone] Red Blood Count 4.22 10^6/uL N 4.0-5.4 [...] Cells % 0.1 Comp Metabolic Panel 07/31/2017 [facility] Sodium 139 mmol/L N 139-[address] [place] [address] [phone] Potassium 4.7 mmol/L N 3.5-5.0 Chloride 102 [...] Egfr 118.8 >60 11 Laboratory test 07/31/2017 [facility] Magnesium 1.9 mg/dL N 1.9-2.[address] [place] [address] [phone] TSH (Thyroid Stim Horm) 1.83 mcIU/mL N 0.34-5.60 B-Type Natriuretic Peptide BNP 34 pg/mL 12 Laboratory test finding 06/21/2017 [facility] Magnesium <pending > [address] [place] [address] [phone] TSH (Thyroid Stim Horm) <pending> Laboratory 06/21/2017 [facility] B-Type <pending> test finding [address] [place] [address] Peptide BNP [phone] Laboratory 05/02/2017 [facility] Rapid Strep Negative Negative 13 test finding [address] [place] [address] [phone] Lipid Profile 04/04/2017 [facility] Triglycerides 37 mg/dL 14 (Trig/Chol/HDL [address] ) [place] [address] [phone] Cholesterol 160 mg/dL 15 HDL Cholesterol 72.1 mg/dL 16 LDL Cholesterol 81 mg/dL 17 Laboratory test 04/04/2017 [facility] PSA 3.049 ng/mL 0-4.0 [address] [place] [address] [phone] Urine Culture And 10/07/2016 [facility] Urine SEE RESULT 19 , Sensitivities [address] Culture BELOW 20 [place] [address] [phone] Poc Urinalysis 10/07/2016 [facility] Poc Glucose, Negative N Negative [address] [place] [address] [phone] Poc Bilirubin, Urine Negative N Negative Poc Ketone, Urine Negative N Negative Poc Specific Ambrose, Urine 1.025 N 1.010-1.030 Poc Blood, Urine Trace-intact Abnormal Negative Poc pH, Urine 6.0 N 5-9 Poc Protein, Urine Negative N Negative Poc Urobilinogen, Urine 0.2 N Negative Poc Nitrite, Urine Negative N Negative Poc Leukocytes, Urine Trace Abnormal Negative Poc Color, Urine Yellow N Poc Clarity, Urine Slightly Cloudy N 21 Laboratory test 04/07/2016 [facility] B-Type Natriuretic 50 pg/ mL N [address] [place] [address] [phone] TSH (Thyroid Stim Horm) 1.79 mcIU/mL N 0.34-5.60 Magnesium 1.8 mg/dL Low 1.9-2.7 Basic Metabolic Panel 04/07/2016 [facility] Sodium 139 mmol/L N 133-[address] [place] [address] [phone] Potassium 4.3 mmol/L N 3.5-5.0 Chloride 103 mmol/L N 101-111 Co2 Carbon Dioxide 31 mmol/L N 22-32 Anion Gap 5 mmol/L N 2-11 Glucose 90 mg/dL N 70-100 Blood Urea Nitrogen 17 mg/dL N 6-24 Creatinine 0.80 mg/dL N 0.67-1.17 BUN/Creatinine Ratio 21.3 High 8-20 Calcium 9.0 mg/dL N 8.6-10.3 Egfr Non- 95.3 N >60 Egfr 122.6 N >60 23 Lipid Profile 04/01/2016 [facility] Triglycerides 44 mg/dL N 24 (Trig/Chol/HDL) [address] [place] [address] [phone] Cholesterol 169 mg/dL N 25 HDL Cholesterol 71.6 mg/dL N 26 LDL Cholesterol 89 mg/dL N 27 Basic Metabolic Panel 01/21/2016 [facility] Sodium 140 mmol/L N 133-145 [address] [place] [address] [phone] Potassium 4.6 mmol/L N 3.5-5.0 Chloride 105 [...] N >60 28 CBC Auto Diff 01/21/2016 [facility] White Blood 6.0 10^3/uL N 3.5-10.[address] [place] [address] [phone] Red Blood Count 4.41 10^6/uL N 4.0-5.4 [...] Cells % 0 N Urinalysis Profile 01/21/2016 [facility] Urine Color Yellow N [address] [place] [address] [phone] Urine Appearance Cloudy N Urine Specific Ambrose 1.023 N 1.010-1.030 Urine pH 5.0 N 5-9 Urine Urobilinogen Negative N Negative Urine Ketones Negative N Negative Urine Protein Negative N Negative Urine Leukocytes Negative N Negative Urine Blood Negative N Negative * * Abnormal Negative 29 Urine Nitrite Negative N Negative Urine Bilirubin Negative N Negative Urine Glucose Negative N Negative Inr/Protime 01/21/2016 [facility] Inr 0.98 N 0.89-1.[address] [place] [address] [phone] Laboratory test 01/21/2016 [facility] Partial 31.6 seconds N 26.0-36.[address] [place] [address] PTT [phone] CBC Auto Diff 12/25/2015 [facility] White Blood 6.0 10^3/uL N 3.5-10.[address] [place] [address] [phone] Red Blood Count 4.45 10^6/uL N 4.0-5.4 [...] Cells % 0.1 N Laboratory test 12/25/2015 [facility] B-Type 78 pg/mL N [address] [place] [address] Peptide BNP [phone] Inr/Protime 12/25/2015 [facility] Inr 1.00 N 0.89- [address] 1.11 [place] [address] [phone] Laboratory test 12/25/2015 [facility] Partial Thrombo 31.1 seconds N 26.0- finding [address] Time PTT 36.3 [place] [address] [phone] Lactic Acid 0.8 mmol/L N 0.5-2.0 31 Comp Metabolic Panel 12/25/2015 [facility] Sodium 137 mmol/L N 133-[address] [place] [address] [phone] Potassium 4.1 mmol/L N 3.5-5.0 Chloride 102 [...] 124.7 N >60 32 Laboratory test 12/25/2015 [facility] Magnesium 1.8 mg/dL Low 1.9-2.[address] [place] [address] [phone] Lipase 7 U/L Low 11.0-82.0 Creatine Kinase(CK) 58 U/L N 10-223 C Reactive Protein < 1.00 mg/L N < 5.00 33 Troponin-I (TnI) 0.00 ng/mL N <0.03 34 CKMB 12/25/2015 [facility] CKMB ng/mL 2.1 ng/mL N 0.6-6.[address] [place] [address] [phone] Laboratory test 12/25/2015 [facility] TSH (Thyroid 1.77 N 0.34 -5.[address] Stim Horm) mcIU/[place] [address] [phone] Laboratory test 02/03/2015 [facility] PSA Diagnostic 2.347 N 0 -4.0 [address] ng/mL [place], [place] [address] [phone] Laboratory test 12/03/2014 [facility] Troponin-I 0.00 N <0.03 36, [address] (TnI) ng/[place] [address] [phone] Magnesium 1.9 mg/dL N 1.9-2.7 38 Basic Metabolic Panel 12/03/2014 [facility] Sodium 139 mmol/L N 133-145 [address] [place] [address] [phone] Potassium 4.0 mmol/L N 3.5-5.0 Chloride 101 [...] >60 39 Iron & Iron Binding 09/09/2014 [facility] Iron 75 g/dL N 50- [address] [place] [address] [phone] Unsaturated Iron Binding 260 g/dL N Total Iron Binding Capacity 335 g/dL N 250-450 % Iron Saturation 22 % N 15-55 Laboratory test 09/09/2014 [facility] Creatine 61 U/L N 10- [address] Kinase(CK) [place] [address] [phone] Lipid Profile 09/09/2014 [facility] Triglycerides 39 mg/dL N 41 (Trig/Chol/HDL) [address] [place] [address] [phone] Cholesterol 148 mg/dL N 42 HDL Cholesterol 67.3 mg/dL N 43 LDL Cholesterol 73 mg/dL N 44 Comp Metabolic Panel 09/09/2014 [facility] Sodium 140 mmol/L N 133-[address] [place] [address] [phone] Potassium 4.2 mmol/L N 3.5-5.0 Chloride 105 [...] 119.8 N >60 45 Laboratory test 09/09/2014 [facility] B-Type 17 pg/mL N [address] [place] [address] Peptide BNP [phone] CBC Auto Diff 09/09/2014 [facility] White Blood 4.4 Low 4.8-[address] Count 10^3/uL 0.8 [place], [place] [address] [phone] Red Blood Count 4.67 10^6/uL N 4.0-5.4 [...] Blood Cells % 0 N Laboratory 09/09/2014 [facility] TSH (Thyroid Stim 1.44 N 0.34 -5.[address] Horm) ?IU/mL [place], [place] [address] [phone] Lipid Profile 12/31/2013 [facility] Triglycerides 51 mg/dL N 48 (Trig/Chol/HDL [address] ) [place] [address] [phone] Cholesterol 156 mg/dL N 49 HDL Cholesterol 73.3 mg/dL N 50 LDL Cholesterol 73 mg/dL N 51 Laboratory test finding 12/31/2013 [facility] Glucose 93 mg/dL N 70-[address] [place] [address] [phone] Hemoglobin A1c 5.5 % N Less than 6.0 52 Comp Metabolic Panel 12/31/2013 [facility] Sodium 139 mmol/L N 133-145 [address] [place] [address] [phone] Potassium 4.2 mmol/L N 3.7-5.6 Chloride 105 [...] 127.3 N >60 53 Laboratory test 06/23/2013 [facility] Hemoglobin A1c 5.4 5-7 finding Laboratory test 09/25/2012 [facility] PSA Screening 2.72 ng/mL 0-4.0 54 finding [address] [place] [address] [phone] Lipid Profile 07/05/2012 [facility] Triglycerides 43 mg/dL 40 -200 (Trig/Chol/HDL) [address] [place] [address] [phone] Cholesterol 172 mg/dL Less than 200 HDL Cholesterol 70 mg/dL High 40-60 55 Cholesterol/HDL Ratio 2.5 Average 1-4.44 LDL Cholesterol 93.4 mg/dL Less Than 100 56 Comp Metabolic Panel 07/05/2012 [facility] Sodium 139 mmol/L 133-145 [address] [place] [address] [phone] Potassium 4.3 mmol/L 3.5-5.0 Chloride 103 mmol/L [...] Egfr 95.9 >60 57 Laboratory test 07/05/2012 [facility] Creatine 76 U/L 0-200 [address] [place] [address] [phone] CBC Auto Diff 07/05/2012 [facility] White Blood 5.0 4.8-10.[address] Count 10^3/[place] [address] [phone] Red Blood Count 4.50 10^6/uL 4.0-5.4 Hemoglobin [...] Blood Cells % 0 Laboratory test 07/05/2012 [facility] TSH (Thyroid 1.79 0.34- 5.60 [address] Stimulating miu/[place] [address] Horm) [phone] Laboratory test 03/27/2012 [facility] PSA Screening 2.85 ng/mL 0-4.0 60 finding [address] [place] [address] [phone] Laboratory test 11/24/2011 [facility] Vitamin B12 303 pg/mL 180-914 finding [address] [place] [address] [phone] TSH 1.34 MIU/ML 0.34-5.60 Lipid Profile 10/26/2011 [facility] Triglyceride 33 mg/dL Low 40-200 (Trig/Chol/HDL) [address] [place] [address] [phone] Cholesterol 165 mg/dL Less Than 200 61 High Density Lipoprotein 68 mg/dL High 40-60 62 Cholesterol/HDL Ratio 2.43 AVERAGE 1-4.97 Low Density Lipoprotein 90 mg/dL Less Than 100 63 CBC With Manual 10/26/2011 [facility] White Blood 4.6 CUMM Low 4.8-10.[address] [place] [address] [phone] Red Cell Count 4.13 CUMM Low 4.6-6.2 [...] Anisocytosis SLIGHT Macrocytosis FEW Laboratory test 10/26/2011 [facility] BNP Evaluatr 42.0 pg/mL 0-100 finding [address] [place] [address] [phone] Comp Metabolic 10/26/2011 [facility] Sodium 138 mmol/L 135- 145 Panel [address] [place] [address] [phone] Potassium 4.3 mmol/L 3.5-5.0 Chloride 105 mmol/L [...] eGFR 124.4 > 60 66 Laboratory 09/21/2011 [facility] PSA,Diagnostic 3.63 0-4 67 test finding [address] NG/[place] [address] [phone] Laboratory 07/17/2011 [facility] PSA,Diagnostic 13.31 High 0- 4 68 test finding [address] NG/[place] [address] [phone] Urine Culture 07/17/2011 [facility] M --------- 69 & Sensitivi [address] ------- [place] [address] <SEE [phone] NOTE> Laboratory 07/17/2011 [facility] In House Hemoglobin A1c 5.5 5-7 test finding CBC Auto Diff 06/13/2011 [facility] White Blood Count 5.8 CUMM 4.8-10. [address] [place] [address] [phone] Red Cell Count 4.41 CUMM Low 4.6-6.2 [...] Basophils 0 0-0.2 Comp Metabolic Panel 06/13/2011 [facility] Sodium 140 mmol/L 135-[address] [place] [address] [phone] Potassium 4.8 mmol/L 3.5-5.0 Chloride 106 mmol/L [...] 108.6 > 60 72 Laboratory test 06/13/2011 [facility] Erythrocyte Sed 5 MM/HR 0-[address] [place] [address] [phone] Rheumatoid Factor < 15 IU/mL <15 73 Pattie (Antinuclear 06/13/2011 [facility] Antinuclear AB NEGATIVE Negative Antibodies) [address] [place] [address] [phone] Laboratory test 06/13/2011 [facility] C Reactive < 0.5 mg/dL Less Than finding [address] Protein 0.5 [place] [address] [phone] Thyroxine Free 0.87 ng/dL 0.61-1.24 TSH 1.33 MIU/ML 0.34-5.60 Lyme Disease Serology Negative Negative 74 Testosterone 06/13/2011 [facility] Free 6.2 Abnormal 9-30 75 Free & Total [address] Testosterone ng/[place] [address] [phone] Total Testosterone 327 ng/dL 240-950 76 Laboratory test 05/15/2011 [facility] PSA,Diagnostic 2.96 NG/ML 0-4 [address] [place] [address] [phone] Laboratory test 02/15/2011 [facility] PSA,Diagnostic 3.17 NG/ML 0-[address] [place] [address] [phone] Laboratory test 12/27/2010 [facility] PSA,Diagnostic 9.59 NG/ML High 0-4 [address] [place] [address] [phone] Laboratory test 12/07/2010 [facility] PSA,Diagnostic 50.49 High 0-[address] NG/[place] [address] [phone] DR [facility] 09/05/2010 [facility] TSH 2.08 0.34-5. Panel 101 MIU/ML 60 [place] [address] [phone] Comp Metabolic 09/05/2010 [facility] Sodium 138 mmol/L 135- [address] [place] [address] [phone] Potassium 4.4 mmol/L 3.5-5.0 Chloride 105 mmol/L [...] 124.8 > 60 83 Lipid Profile 09/05/2010 [facility] Triglyceride 42 mg/dL 40- 200 (Trig/Chol/HDL) [address] [place] [address] [phone] Cholesterol 176 mg/dL Less Than 200 84 High Density Lipoprotein 68 mg/dL High 40-60 85 Cholesterol/HDL Ratio 2.59 AVERAGE 1-4.97 Low Density Lipoprotein 100 mg/dL Less Than 100 86 CBC Auto Diff 09/05/2010 [facility] White Blood 5.0 CUMM 4.8- 10.[address] [place] [address] [phone] Red Cell Count 4.33 CUMM Low 4.6-6.2 [...] Abs Basophils 0 0-0.2 CBC With 09/01/2009 [facility] White Blood 5.4 CUMM 4.8-10.8 Electronic Diff [address] [place] [address] [phone] Red Cell Count 4.47 CUMM Low 4.6-6.2 [...] Abs Basophils 0 0-0.2 Lipid Profile 09/01/2009 [facility] Triglyceride 47 mg/dL 40- 200 (Trig/Chol/HDL) [address] [place] [address] [phone] Cholesterol 170 mg/dL Less Than 200 87 High Density Lipoprotein 63 mg/dL High 40-60 88 Cholesterol/HDL Ratio 2.70 AVERAGE 1-4.97 Low Density Lipoprotein 98 mg/dL Less Than 100 89 Comp Metabolic Panel 09/01/2009 [facility] Sodium 135 mmol/L 135-[address] [place] [address] [phone] Potassium 4.7 mmol/L 3.5-5.0 Chloride 103 mmol/L [...] > [address] [facility] 09/01/2009 [facility] TSH 1.46 0.34-5.[address] MIU/[place] [address] [phone] Laboratory test 01/12/2009 [facility] PSA,Diagno 2.00 NG/ML 0 -4 95, [address] [place] [address] [phone] CBC With 08/11/2008 [facility] White 4.6 CUMM Low 4.8-10.8 Electronic Diff [address] [place] [address] Count [phone] Red Cell Count 4.54 CUMM Low 4.6-6.2 [...] Basophils 0 0-0.2 Comp Metabolic Panel 08/11/2008 [facility] Sodium 139 mmol/L 135-[address] [place], [place] [address] [phone] Potassium 5.2 mmol/L High 3.5-5.0 Chloride 108 [...] (Sgot) 19 U/L 12-42 Lipid Profile 08/11/2008 [facility] Triglyceride 24 mg/dL Low 40-200 (Trig/Chol/HDL) [address] [place], [place] [address] [phone] Cholesterol 176 mg/dL Less Than 200 101 High Density Lipoprotein 66 mg/dL High 40-60 102 Cholesterol/HDL Ratio 2.67 AVERAGE 1-4.97 Low Density Lipoprotein 105 mg/dL High Less Than 100 103 Laboratory test 08/11/2008 [facility] TSH 1.07 MIU/ML 0.34- 5.60 finding [address] [place] [address] [phone] Laboratory test 01/01/2008 [facility] PSA,Diagno 1.59 NG/ML 0 -4 104 finding [address] [facility] [place] [place] [address] [phone] CBC With 07/10/2007 [facility] White 4.7 CUMM Low 4.8-10.8 Electronic Diff [address] [facility] [facility] [place] [address] Count [phone] Abs Basophils 0 0-0.2 Abs Eosinophils 0 [...] 14 % 10.5-15 Comp Metabolic Panel 07/10/2007 [facility] One Over Creatinine 1.[address] [place], [place] [address] [phone] Anion Gap -3.0 mmol/L Low 2-11 105 [...] Creatinine 0.9 mg/dL 0.5-1.4 Lipid Profile 07/10/2007 [facility] Cholesterol/HDL 2.87 1- 4.97 (Trig/Chol/HDL) [address] [place], [place] [id number] [phone] Cholesterol 172 mg/dL Less Than 200 106 Triglyceride 31 mg/dL Low 40-200 High Density Lipoprotein 60 mg/dL 40-60 107 Low Density Lipoprotein 106 mg/dL High Less Than 100 108 Laboratory test 07/10/2007 [facility] PSA Screening 2.29 NG/ML 0-4 [address] [place] [address] [phone] TSH 1.46 MIU/ML 0.34-5.60 1 Because ethnic [...] 5 Kidney failure <15 (or dialysis) 2 [facility] Severe Sepsis and Septic Shock Management [...] may interfere with detection of blood. 5 Social Services Designee: [id number] 6 Because ethnic data is not always [...] may interfere with detection of blood. 9 [facility] Severe Sepsis and Septic Shock Management [...] pg/mL: likely moderate to severe CHF 13 Social Services Designee: [id number] 14 Desirable: <150 Borderline High: 150-199 High: 200-499 Very High: >500 15 Desirable: <200 Borderline High: 200-239 High: >239 16 Low: <40 Desirable: 40-60 High: >60 17 Desirable: <100 Near Optimal: 100-129 Borderline High: 130-159 High: 160-189 Very High: >189 18 Serum levels of PSA measured using the [employer] DXI Hybritech immunoassay should not be interpreted as absolute evidence of the presence or absence of disease. The PSA value should be used in conjunction with other pertinent clinical diagnostic procedures. The values obtained with different assay methods or kits cannot be used interchangeably. 19 [id number] 20 SEE RESULT BELOW Name: CHRIS WALLIS JR : [address]: Amee Banuelos MD Acct: [id number] Unit: [id number] AGE: 71 Location: [facility] Re10/07/16 SEX: M Status: DEP ER SPEC: [id number] JC: 10/07/[address] [facility] [address]: Amee Banuelos MD REQ: [id number] RECD: 10/07/161 STATUS: NATANAEL ESCOBAR DR: Geraldo Saab III, MD _ SOURCE: URINE SPDESC: ORDERED: Urine Culture COMMENTS: [id number] Procedure Result Reported Site Urine Culture Final 10/08/16- 1250 ML No Growth (<1,000 CFU/mL) * ML - MAIN LAB ([facility]) . END OF REPORT * ML=Testing performed at Main Lab DEPARTMENT OF PATHOLOGY, [address] [place] [address] Jimmy Prater M.D. Director [facility] # [id number] 21 Social Services Designee: [id number] 22 >100 to <200 pg/mL: likely compensated [...] pg/mL: likely moderate to severe CHF 31 [place] Severe Sepsis and Septic Shock Management [...] 0.03 ng/mL Not supportive of diagnosis of [place] 0.03 - 0.50 ng/mL Indeterminate: suggest serial studies if clinically indicated. Greater than 0.5 ng/mL Consistent with diagnosis of [place] 35 Serum levels of PSA measured using the [employer] DXI Hybritech immunoassay should not be interpreted as absolute evidence of the presence or absence of disease. The PSA value should be used in conjunction with other pertinent clinical diagnostic procedures. The values obtained with different assay methods or kits cannot be used interchangeably. 36 CALL RESULTS TO TODAY [phone] Reference Range and Interpretation: TnI (ng/mL) Interpretation Less Than 0.03 ng/mL Not supportive of diagnosis of [place] 0.03 - 0.50 ng/mL Indeterminate: suggest serial studies if clinically indicated. Greater than 0.5 ng/mL Consistent with diagnosis of [place] 38 CALL RESULTS TO TODAY [phone] 39 Because ethnic data is not always [...] and in selective patients <6.0%.Please refer to [place] Diabetes Association Diabetic care guidelines for further [...] Serum levels of PSA measured using the [employer] DXI Hybritech immunoassay should not be interpreted [...] Serum levels of PSA measured using the [employer] DXI Hybritech immunoassay should not be interpreted [...] has been shown to interfere with the [place] method for measuring total bilirubin. Samples from [...] be used interchangeably. 69 RUN DATE: 07/19/11 [facility] NMI LIVE PAGE 1 RUN TIME: 1149 Specimen Inquiry RUN USER: INTERFACE Name: CHRIS WALLIS JR#: [id number] Status: REG REF Re07/17/11 Age/Sex: 66/M Unit#: [id number] Location: [facility] : 45 SPEC #: [id number] JC: 07/17/11 STATUS: COMP REQ #: [id number] RECD: 07/17/[address] [facility] [address]: Katiana GR MDGeraldo SOURCE: URINE ENTR: 07/17/[address]: [facility] SSDLINA: ORDERED: URINE C S QUERIES: MEDENT REQUISITION # [id number] ACT WKST: UR 07/19/11 #1 Procedure Result [...] *These antibiotics are not available in the [facility] Formulary. Contact the Microbiology Department for any additional antibiotic reporting. - [facility] State Permit #[id number] [address] [place] [address] DEPARTMENT OF PATHOLOGY, [address] [place] [address] [facility] Permit #[id number] Jimmy Prater M.D. Director Michelle Nelson M.D. Business Information Manager 70 Anion gap measurement may be of [...] <15 (or dialysis) 73 Test Performed by: [facility] Dpt of Lab Med and Pathology [address] [place] [address] Mill Control Operator: Kobe Jimenez III, M.D. 74 Serologic response to B. burgdorferi infection is not detected, but cannot rule out early infection during which low or undetectable antibody levels to B. burgdorferi may be present. If clinically indicated, a new serum specimen should be submitted in 7-14 days. Test Performed by: [facility] Dpt of Lab Med and Pathology [address] [place] [address] Mill Control Operator: Kobe Jimenez III, M.D. 75 Test Performed by: [facility] Dpt of Lab Med and Pathology [address] [place] [address] Mill Control Operator: Kobe Jimenez III, M.D. 76 Test Performed by: [facility] Dpt of Lab Med and Pathology [address] [place] [address] Mill Control Operator: Kobe Jimenez III, M.D. 77 * SERUM LEVELS OF PSA MEASURED USING THE [employer] ACCESS HYBRITECH IMMUNOASSAY SHOULD NOT BE INTERPRETED ABSOLUTE EVIDENCE OF THE PRESENCE OR ABSENCE OF DISEASE. THE PSA VALUE SHOULD BE USED IN CONJUNCTION WITH OTHER PERTINENT CLINICAL DIAGNOSTIC PROCEDURES. The values obtained with different assay methods or kits cannot be used interchangeably. 78 * SERUM LEVELS OF PSA MEASURED USING THE [employer] ACCESS HYBRITECH IMMUNOASSAY SHOULD NOT BE INTERPRETED ABSOLUTE EVIDENCE OF THE PRESENCE OR ABSENCE OF DISEASE. THE PSA VALUE SHOULD BE USED IN CONJUNCTION WITH OTHER PERTINENT CLINICAL DIAGNOSTIC PROCEDURES. 79 * SERUM LEVELS OF PSA MEASURED USING THE [employer] ACCESS HYBRITECH IMMUNOASSAY SHOULD NOT BE INTERPRETED ABSOLUTE EVIDENCE OF THE PRESENCE OR ABSENCE OF DISEASE. THE PSA VALUE SHOULD BE USED IN CONJUNCTION WITH OTHER PERTINENT CLINICAL DIAGNOSTIC PROCEDURES. 80 * SERUM LEVELS OF PSA MEASURED USING THE [employer] ACCESS HYBRITECH IMMUNOASSAY SHOULD NOT BE INTERPRETED [...] change was based on recommendations from the [place] Diabetes [employer]. 92 Please note change in reference range effective 07 . 93 A metabolite of Naproxen, O-desmethylnaproxen, has been shown to interfere with the [place] method for measuring total bilirubin. Samples from [...] LEVELS OF PSA MEASURED USING THE [employer] ACCESS HYBRITECH IMMUNOASSAY SHOULD NOT BE INTERPRETED [...] change was based on recommendations from the [place] [employer]. 99 Please note change in reference range effective 07 . 100 A metabolite of Naproxen, O-desmethylnaproxen, has been shown to interfere with the [place] method for measuring total bilirubin. Samples from [...] SERUM LEVELS OF PSA MEASURED USING THE [employer] ACCESS HYBRITECH IMMUNOASSAY SHOULD NOT BE INTERPRETED [...] SERUM LEVELS OF PSA MEASURED USING THE [employer] ACCESS HYBRITECH IMMUNOASSAY SHOULD NOT BE INTERPRETED ABSOLUTE EVIDENCE OF THE PRESENCE OR ABSENCE OF DISEASE. THE PSA VALUE SHOULD BE USED IN CONJUNCTION WITH OTHER PERTINENT CLINICAL DIAGNOSTIC PROCEDURES. Procedures Date Code Description Status 07/10/2018 07166 EKG Tracing & Interpretation Completed 05/20/2018 47221 EKG Tracing & Interpretation Completed 01/22/2018 91568 Neurostimulator Pulse Generator Analysis W/O Completed Reprogramming 12/19/2017 02169 EKG Tracing & Interpretation Completed 08/07/2017 83881 ECG Monitor/Recording W/Visual Superimposition Scanning Completed 07/13/2017 01464 Treadmill Interp/Report Only Completed 07/13/2017 15838 Stress Test Supervsn W/Out I/R Completed 07/10/2017 47168 ECHO Transthoracic, Real-Time 2D With Doppler And Color Completed Flow 07/10/2017 63116 ECHO Transthoracic, Real-Time 2D With Doppler And Color Completed Flow 06/21/2017 93077 EKG Tracing & Interpretation Completed 09/04/2016 27452231 Colonoscopy Completed 06/20/2016 65380 EKG Tracing & Interpretation Completed 04/07/2016 86362 EKG Tracing & Interpretation Completed 01/05/2016 16084 EKG Tracing & Interpretation Completed 04/21/2015 84278 EKG Tracing & Interpretation Completed 12/16/2014 48116 ECHO Transthoracic, Real-Time 2D With Doppler And Color Completed Flow 12/08/2014 17295 EKG Tracing & Interpretation Completed 12/04/2014 89938 Treadmill Interp/Report Only Completed 12/04/2014 23577 Stress Test Supervsn W/Out I/R Completed 09/24/2014 29210 Pulmonary Function><Bronchodil Completed 09/24/2014 05623 Diffusing Capacity Completed 09/24/2014 48309 Plethysmography Determination Lung Volumes & Per Airway Completed Resist 09/09/2014 73999 ECHO Transthoracic, Real-Time 2D With Doppler And Color Completed Flow 09/07/2014 00759 EKG Tracing & Interpretation Completed 06/18/2014 17045 Repair Hernia Inguinal > 5Yrs, Reducible Completed 06/18/2014 30198 Repair Hernia Umbilical > 5 Yrs, Reducible Completed 06/12/2014 91198 ECHO Transthoracic, Real-Time 2D With Doppler And Color Completed Flow 05/29/2014 99360 Treadmill Interp/Report Only Completed 05/29/2014 94294 Stress Test Supervsn W/Out I/R Completed 04/21/2014 79835 EKG Tracing & Interpretation Completed 09/24/2013 46331 Holter Monitoring 24 HR New Completed 09/09/2013 40927 ECHO Stress Test Incl Perf Contiuous ekg Monitoring Completed W/Phys Superv 09/05/2013 12937 ECHO Transthoracic, Real-Time 2D With Doppler And Color Completed Flow 08/08/2013 35292 EKG Tracing & Interpretation Completed 05/30/2012 41869 EKG Tracing & Interpretation Completed 11/23/2011 80298 Treadmill Interp/Report Only Completed 11/23/2011 25098 Stress Test Supervsn W/Out I/R Completed 11/22/2011 67516 ECHO Stress Test Incl Perf Contiuous ekg Monitoring Completed W/Phys Superv 11/22/2011 91634 ECHO Stress Test Incl Perf Contiuous ekg Monitoring Completed W/Phys Superv 08/24/2011 42335 Color Flow Doppler/Interp & Reprt Completed 08/24/2011 41834 Pulse Wave/Continuous-Interp.RPT Completed 08/24/2011 25935 ECHO Transthorasic Realtime 2D W Doppler & Color Flow Completed Hosp 08/17/2011 58758 EKG Tracing & Interpretation Completed 09/22/2005 07196732 Colonoscopy Completed Encounters Type Date Location Provider Dx Diagnosis Office Visit 07/11/2018 Neri Haynes Parkinson' s 4:00p Services Of Nena Salas disease I95.1 Orthostatic hypotension R29.6 Repeated falls Office Visit 06/24/2018 11:30a Orthopedic Danny Mir, R60.0 Localized edema Services Of MD Tillman M25.561 Pain in right knee R29.6 Repeated falls Office Visit 06/12/2018 1:00p Orthopedic Danny Mir M25.561 Pain in Services Of Primo CASTRO right knee M25.461 Effusion, right knee R29.6 Repeated falls S80.01xA Contusion of right knee, initial encounter Office Visit 06/04/2018 9:00a Neri Haynes Parkinson's Services Of Nena Salas disease I95.1 Orthostatic hypotension G47.33 Obstructive sleep apnea (adult) (pediatric) Office Visit 05/20/2018 2:00p [facility] Isabel S. I95.1 Orthostatic Of Nena Foster, N.PPriti hypotension I49.3 Ventricular premature depolarization I49.5 Sick sinus syndrome R06.00 Dyspnea, unspecified Office Visit 04/29/2018 3:20p [facility] Internal Geraldo Cruz M54.5 Low back pain Medicine - [place] K59.00 Constipation, unspecified R12 Heartburn Office Visit 04/16/2018 12:00p Neri Haynes Parkinson's Services Of Nena Salas disease G47.33 Obstructive sleep apnea (adult) (pediatric) R42 Dizziness and giddiness R26.81 Unsteadiness on feet Office Visit 03/15/2018 1:45p Neri Haynes Parkinson's Services Of Nena Salas disease G47.33 Obstructive sleep apnea (adult) (pediatric) R42 Dizziness and giddiness R26.81 Unsteadiness on feet Office Visit 01/22/2018 9:15a [place] [facility] Drew Thomas G20 Parkinson's Services Of [facility] MPritiDPriti disease G47.33 Obstructive sleep apnea (adult) (pediatric) R42 Dizziness and giddiness R26.81 Unsteadiness on feet Z96.89 Presence of other specified functional implants Office Visit 12/19/2017 2:30p [facility] Nahun Holder G47.33 Obstructive sleep Josue Clay apnea (adult) (pediatric) I49.3 Ventricular premature depolarization R42 Dizziness and giddiness I49.5 Sick sinus syndrome Office Visit 10/19/2017 Pulmonology And Shira G47.33 Obstructive sleep 10:30a Sleep Services Of SOLANGE [place], RN, apnea (adult) [facility] ASHLEY-DOMINGA (pediatric) R68.84 Jaw pain Office Visit 08/21/2017 11:30a [facility] Isabel Correa, R42 Dizziness and Of [facility] NPritiPPriti giddiness I49.3 Ventricular premature depolarization R94.39 Abnormal result of other cardiovascular function study R06.00 Dyspnea, unspecified Office Visit 08/15/2017 [facility] Rosaline Cruz 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 Office Visit 07/27/2017 [facility] Shira G47.33 Obstructive sleep 10:45a Sleep Services Of [place] apnea (adult) [facility] RN, MANAGER SALES-[employer] (pediatric) Office Visit 07/11/2017 [facility] Ck Bruno G2Nguyễn Parkinson's disease 3:45p Services Of [facility] Josue Alaniz R68.84 Jaw pain Office Visit 06/21/2017 9:00a [facility] Nahun Holder G2gNuyễn Parkinson 's Of [facility] Josue Clay disease R94.39 Abnormal result of other cardiovascular function study R42 Dizziness and giddiness R06.00 Dyspnea, unspecified I49.3 Ventricular premature depolarization Office Visit 04/12/2017 [facility] Rosaline Cruz M26.623 Arthralgia of 11:40a Kelsey Saab M.D. bilateral [place] temporomandibular joint Office Visit 04/10/2017 [facility] Internal Geraldo Cruz Z00.00 Encntr [...] Sleep apnea, unspecified Office Visit 07/11/2016 9:40a [facility] Internal John Dyer NP M79.672 Pain in left Medicine foot Office Visit 06/20/2016 10:20a [facility] Nahun Holder G20 Parkinson 's Josue Clay disease G47.30 Sleep apnea, unspecified R60.9 Edema, unspecified Office Visit 06/07/2016 3:30p [place] [facility] Ck Bruno G20 Parkinson's Services Of [facility] Josue Alaniz disease Office Visit 05/18/2016 10:40a [facility] Internal Kusum Bermudez, J20.9 Acute bronchitis, Medicine N.P. unspecified J01.90 Acute sinusitis, unspecified Office Visit 05/05/2016 Pulmonology And Shira G47.33 Obstructive sleep 11:45a Sleep Services Of SOLANGE [place], RN, apnea (adult) [facility]- (pediatric) Office Visit 04/07/2016 [facility] Internal Geraldo Cruz Z00.01 Encounter for 9:40a Kelsey Saab M.D. general adult [place] medical exam w abnormal findings G20 Parkinson's disease G47.30 Sleep apnea, unspecified E78.00 Pure hypercholesterolemia, unspecified N40.0 Benign prostatic hyperplasia without lower urinry tract symp R60.0 Localized edema Office Visit 03/10/2016 11:00a [facility] Internal Geraldo Cruz J06.9 Acute upper Kelsey Saab M.D. respiratory [place] infection, unspecified Office Visit 01/28/2016 9:00a [facility] Internal Maxi D17.21 Benign lipomatous Kelsey Kaiser M.D. neoplasm of skin, [place] subcu of right arm R29.6 Repeated falls R22.31 Localized swelling, mass and lump, right upper limb Office Visit 01/05/2016 [facility] Internal Geraldo Cruz Z01.810 Encounter for 11:20a Kelsey Saab M.D. preprocedural [place] cardiovascular examination G20 Parkinson's disease G47.30 Sleep apnea, unspecified Office Visit 11/24/2015 [facility] Ck Bruno G2Nguyễn Parkinson's 9:15a Clinic Josue Alaniz disease Office Visit 06/01/2015 [facility] [place] [facility] Ck Bruno G2Nguyễn Parkinson's 2:45p Services Of Nena Alaniz M.D. disease Office Visit 04/21/2015 [facility] Nahun Holder G20 Parkinson's 11:40a Josue Clay disease E78.0 Pure hypercholesterolemia R07.9 Chest pain, unspecified R06.00 Dyspnea, unspecified R94.31 Abnormal electrocardiogram [ECG] [EKG] Office 02/10/2015 [place] Ck Bruno G2Nguyễn Parkinson's disease Visit 3:15p Neurologic Josue Alaniz Services Of [facility] Office 12/24/2014 [place] Nahun Holder E78.0 Pure hypercholesterolemia Visit 2:40p Cardiology Josue Clay R07.9 Chest pain, unspecified R06.00 Dyspnea, unspecified R00.2 Palpitations Office Visit 12/03/2014 2:00p [facility] [place] [facility] HEATHER Marquez 426.4 Right Bundle Branch Block 272.0 Hypercholesterolemia Pure 786.50 Pain Chest Unspec 427.69 Premature Beats Other Office Visit 12/02/2014 4:00p [facility] Internal Geraldo Cruz 786.50 Pain Chest Unspec Kelsey Saab M.D. Office Visit 11/18/2014 2:30p [place] [facility] Ck Bruno 327.23 Obstructive Sleep Services Of Nena Alaniz M.D. Apnea Adult & Pediatric 332.0 Paralysis Agitans Office Visit 10/06/2014 [facility] And Shira 327.23 Obstructive Sleep 10:15a Sleep Services Of SOLANGE [place], RN, Apnea Adult & [facility] Office Visit 10/01/2014 Pulmonology And Sarah Muniz, 786.09 Dyspnea & 2:45p Sleep Services Of Respiratory House Parent Abnormalities Other Office Visit 09/07/2014 [facility] [place] [facility] Nahun Holder 786.09 Dyspnea & 3:40p Josue Clay Respiratory Abnormalities Other 794.31 Electrocardiogram (ECG) (EKG) Abnormal 426.4 Right Bundle Branch Block Office Visit 09/03/2014 1:00p Pulmonology And Josef Malik, 786.05 Shortness Of Sleep Services Of Josue Breath House Parent Office Visit 08/31/2014 2:40p [facility] Internal Geraldo Cruz V06.1 Diphtheria- Tetan Medicine Josue Saab us-Pertusis Combined (DTaP) V03.82 Streptococcus Pneumoniae Vaccination Spec Other 786.05 Shortness Of Breath Office Visit 05/29/2014 11:30a [facility] Nahun Holder 550.90 Hernia Inguinal Josue Clay W/O Obstruct Or Gangrene Unilateral Unspec 272.0 Hypercholesterolemia Pure 426.4 Right Bundle Branch Block 794.31 Electrocardiogram (ECG) (EKG) Abnormal 414.01 Coronary Atherosclerosis Crow Office Visit 05/21/2014 4:00p [facility] Rosaline Cruz 550.90 Hernia Inguinal Kelsey Saab M.D. W/O Obstruct Or Gangrene Unilateral Unspec Office Visit 05/07/2014 4:00p [facility] Internal Geraldo Cruz 550.90 Hernia Inguinal Medicine Josue Saab W/O Obstruct Or Gangrene Unilateral Unspec Office Visit 04/28/2014 2:45p [place] [facility] Ck SPriti 332.0 Paralysis Agitans Services Of Nena Alaniz M.D. Office Visit 04/23/2014 9:20a [facility] Internal Geraldo Cruz 465.9 URI Upper Medicine Josue Saab Respiratory Infections Acute Unspec Sites 332.0 Paralysis Agitans Office 04/21/2014 [place] Nahun Holder 272.0 Hypercholesterolemia Pure Visit 3:00p Cardiology Josue Clay 794.31 Electrocardiogram (ECG) (EKG) Abnormal 426.4 Right Bundle Branch Block Office Visit 03/02/2014 [facility] Rosaline Cruz 465.9 URI Upper Respiratory 2:20p Medicine Katiana, M.D. Infections Acute Unspec Sites Office Visit 10/29/2013 Maddie Bruno 332.0 Paralysis Agitans 1:45p Neurologic Josue Alaniz Services Of [facility] Office Visit 08/08/2013 Maddie Holder 794.31 Electrocardiogram 3:20p Cardiology Josue Clay (ECG) (EKG) Abnormal 332.0 Paralysis Agitans 272.0 Hypercholesterolemia Pure 414.01 Coronary Atherosclerosis Crow 782.3 Edema Office Visit 07/15/2013 3:00p [place] Binu Bruno 332.0 Paralysis Services Of [facility] Josue Alaniz Agitans Office Visit 06/23/2013 11:00a [facility] Internal Geraldo Cruz 790.21 Impaired Fasting Kelsey Saab M.D. Glucose 780.57 Unspecified Sleep Apnea 332.0 Paralysis Agitans 272.0 Hypercholesterolemia Pure Office Visit 01/23/2013 10:30a [facility] Internal Samra Alexis, 477.9 Rhinitis Medicine N.P. Allergic Cause Unspec 465.9 URI Upper Respiratory Infections Acute Unspec Sites Office Visit 01/15/2013 [place] Ck Brnuo 332.0 Paralysis Agitans 2:45p Binu Alaniz M.D. Services Of [facility] Office Visit 08/27/2012 [facility] Internal Geraldo Cruz 553.1 Hernia Umbilical 1:00p Kelsey Saab M.D. Office Visit 08/02/2012 [facility] Internal Geraldo Cruz 724.5 Backache Unspec 10:20a Kelsey Saab M.D. Office Visit 07/16/2012 [place] 332.0 Paralysis Agitans 2:45p Binu Alaniz M.D. Services Of [facility] Office Visit 06/19/2012 [facility] Internal Geraldo Cruz 719.46 Pain Joint Lower 2:40p Kelsey Saab M.D. Leg Office Visit 06/10/2012 [facility] Internal Geraldo Cruz 381.19 Otitis Media 10:40a Kelsey Saab M.D. Chronic Serous Other Office Visit 05/30/2012 Maddie Holder 786.09 Dyspnea & 10:20a Cardiology Josue Clay Respiratory Abnormalities Other 426.52 Right Bundle Branch Block W/ Left Anterior Fascicular Block 794.31 Electrocardiogram (ECG) (EKG) Abnormal Office Visit 05/03/2012 11:20a [facility] Internal Geraldo Cruz 465.9 URI Upper Kelsey Saab M.D. Respiratory Infections Acute Unspec Sites 382.9 Otitis Media Unspec Office Visit 04/03/2012 3:40p [facility] Internal Geraldo Cruz 726.19 Shoulder Disorders Kelsey Saab M.D. Other Spec Office Visit 02/21/2012 1:20p [facility] Internal Geraldo Cruz 786.09 Dyspnea & Kelsey Saab M.D. Respiratory Abnormalities Other Office Visit 01/16/2012 2:30p [place] Ck Bruno 332.0 Paralysis Agitans Neurologic Josue Alaniz Services Of [facility] Office Visit 12/20/2011 10:00a [facility] Internal Geraldo Cruz 780.79 Malaise And Fatigue Kelsey Saab M.D. Other 786.09 Dyspnea & Respiratory Abnormalities Other 600.20 Benign Localized Hyperplasia Prostate W/O Urinary Obstruct Office Visit 11/24/2011 11:15a [place] [facility] Ck Bruno 780.93 Memory Loss Services Of [facility] Josue Alaniz 780.79 Malaise And Fatigue Other Office Visit 11/22/2011 11:30a [place] [facility] Nahun Holder 786.05 Beto M.D. Breath 794.31 Electrocardiogram (ECG) (EKG) Abnormal 780.79 Malaise And Fatigue Other Office Visit 11/01/2011 1:00p [facility] Internal Geraldo Cruz 786.05 Shortflorecita Of Kelsey Saab M.D. Breath 780.93 Memory Loss Office Visit 08/17/2011 1:40p [facility] Internal Geraldo Cruz 786.09 Dyspnea & Kelsey Saab M.D. Respiratory Abnormalities Other Office Visit 07/17/2011 1:00p [facility] Internal Geraldo Cruz 599.0 UTI Urinary Tract Kelsey Saab M.D. Infection Site Not Spec 790.21 Impaired Fasting Glucose Office Visit 07/07/2011 11:40a [facility] Internal Geraldo Cruz 780.79 Malaise And Kelsey Saab M.D. Fatigue Other 784.1 Throat Pain Office Visit 06/20/2011 10:40a [facility] Internal Geraldo EPriti 780.79 Malaise And Kelsey Saab M.D. Fatigue Other Office Visit 06/13/2011 1:40p [facility] Internal Geraldo EPriti 780.79 Malaise And Kelsey Saab M.D. Fatigue Other Office Visit 04/19/2011 10:00a House Parent Internal Geraldo E. 719.46 Pain Joint Lower Medicine Josue Saab Leg Office Visit 12/06/2010 10:00a DO Not Use House Parent [place] 601.1 Prostatitis AT Cuate Sparks M.D. Office Visit 11/24/2010 1:00p DO Not Use House Parent G[place] E. V70.0 Examination AT Oli Saab M.D. General Medical Routine AT Health Care Facility 790.21 Impaired Fasting Glucose 477.9 Rhinitis Allergic Cause Unspec 723.1 Cervicalgia 600.20 Benign Localized Hyperplasia Prostate W/O Urinary Obstruct Office Visit 07/28/2010 4:00p DO Not Use House Parent [place] E. 726.19 Shoulder AT Oli Saab M.D. Disorders Other Spec 780.79 Malaise And Fatigue Other V03.82 Streptococcus Pneumoniae Vaccination Spec Other Office Visit 04/15/2010 9:20a DO Not Use House Parent [place] E. 465.9 URI Upper AT Oli Saab M.D. Respiratory Infections Acute Unspec Sites Office Visit 11/25/2009 3:40p DO Not Use House Parent [place] E. 604.90 Orchitis & AT Oli Saab M.D. Epididymitis Unspec Office Visit 09/09/2009 9:00a DO Not Use House Parent Geraldo E. V70.0 Examination General AT Oli Saab M.D. Medical Routine AT Health Care Facility 790.21 Impaired Fasting Glucose 600.20 Benign Localized Hyperplasia Prostate W/O Urinary Obstruct Office Visit 05/31/2009 3:20p DO Not Use House Parent G[place]do E. 300.02 Anxiety Disorder AT Oli Saab M.D. Generalized 796.2 Blood Pressure Reading Elevated W/O Hypertension Office Visit 05/03/2009 2:40p DO Not Use House Parent [place]do E. 465.9 URI Upper AT Oli Saab M.D. Respiratory Infections Acute Unspec Sites 780.79 Malaise And Fatigue Other Office Visit 12/17/2008 11:15a DO Not Use House Parent [place]do E. 465.9 URI Upper AT Oli Saab M.D. Respiratory Infections Acute Unspec Sites Office [facility]/07[facility] V05.8 Single Disease AT [facility] Josue Saab Spec Other [place] Vaccination & Inoculation V70.0 Examination General Medical Routine AT Health Care Facility 602.9 Prostate Disorder Unspec Office Visit 12/20/2007 10:15a [place] [facility] Geraldo E. 465.9 URI Upper Assoc AT Josue Saab Respiratory [facility] Infections Acute Unspec Sites Office Visit 11/27/2007 10:30a [place] [facility] Geraldo E. 723.1 Cervicalgia Assoc AT Josue Saab [facility] 780.52 Insomnia Unspecified Office Visit 09/05/2007 9:30a [place] [facility] AT [facility] [place], [facility] Unspec 477.9 Rhinitis Allergic Cause Unspec V70.0 Examination General Medical Routine AT Health Care Facility Office Visit 06/20/2007 3:15p [place] [facility] Geraldo E. 465.9 URI Upper Assoc AT Josue Saab Respiratory [facility] Infections Acute Unspec Sites Office Visit 03/29/2007 9:15a [place] [facility] Geraldo E. 724.2 Lumbago Assoc AT Josue Saab [facility] Plan of Treatment Future Appointment(s):07/25/2018 12:30 pm - Drew Thomas M.D. at [place] [facility]10/03/2018 3:20 pm - Nahun Clay M.D. at [place] [facility]08/09/2018 3:00 pm - Isabel Correa N.P. at [facility]07/12/2018 3:00 pm - Danny Mir MD at [facility]10/22/2018 2:15 pm - Shira Loredo DNP, RN, MANAGER SALES- at [facility]07/11/2018 - Drew Thomas M.D.G20 Parkinson's diseaseFollow up:Follow up in 2 weeks, ok to overbookRecommendations:1. Sleep with head of bed 30 degrees 2. Start with 1 cup of V8 juice each morning and monitor BPs lying down and sitting/standing. Add 1/2 cup as necessary to maintain sitting and standing blood pressures, watching for elevated BPs when lying down. 3. Wait after standing for at least 30 seconds. 4. Increase water [id number] Orthostatic [id number] Repeated falls
--- OUTSIDE RECORDS SUMMARY | 2018-08-08 14:39 | XMS REPORT | Continuity of Care Document ---
:1945 External Reference #:[id number] Author Name Natali Santos Care Team Providers Name Role Phone Geraldo Saab III, MD Primary Care Physician Unavailable Payers Date Identification Numbers Payment Provider Subscriber Effective: 2009 Policy Number: [id number] Medicare Chris Wallis PayID: [id number] [address] [place] [address] Policy Number: [id number] [facility] Chris Wallis Group Number: [id number] [address] PayID: [id number] [place] [address] Advance Directives Description No Information Available Problems [...] apnea of adult Shira Loredo DNP, RN, CUSTOMER CARE AGENT- Onset: Dizziness and giddiness Drew Thomas M.D. Onset: 01/22/2018 Abnormal gait Drew Thomas M.D. Onset: 01/22/2018 Orthostatic hypotension Drew Thomas M.D. Onset: 06/04/2018 Family History Date Family Member(s) Observation Comments Father due to Heart Attack age 63 () Siblings 1 Social History Type Date Description Comments Sex Unknown Marital Status Lives With Occupation Retired Hand Dominance Right-handed Tobacco Use Start: Unknown Never Smoked Cigarettes Cigarette Use pipe only in the past Tobacco Use Start: Unknown Quit in 1982 Smoking Status Reviewed: 07/10/18 Quit in 1982 ETOH Use Consumes 1 glass of 2 glasses, 3-4 days wine per day weekly Recreational Drug Use Denies Drug Use Tobacco Use Start: Unknown End: Patient is a former smoke for short Unknown smoker period, e 1982 Recreational Drug Use frequent falls d/t [...] daily Prozac take one capsule 90caps Drew Thomas 06/01/2015 20mg Capsules by mouth once M.D. [...] Sinemet ER 2 by mouth four Ck SPriti 03/28/2018 - 25-100mg times a day Josue [...] day at 6am, 12pm and 6 pm Cameronaren apply 2 grams of 300gm M79.672 John [...] Cream Nystatin topically bid 60g Unknown - [id number] prn 01/28/2016 Cream Metamucil Original po with liquid Unknown - Texture qhs 12/02/2014 Powder Cortisone Cream topical, as Unknown - needed 05/19/2018 Proctosol HC Apply bid prn 60gm Javier Lozada MD - 2.5% Cream 12/17/2008 Kenalog Apply bid prn 60GM Javier Lozada MD - 0.1% Cream Eczema 12/17/2008 Multivitamins 1 PO qd 90tabs Unknown - Tablets 02/21/2012 Vitamin C 1 PO qd Katiana III, - 500mg Tablets Geraldo Cruz MD 07/17/2011 Ecotrin Regular 1 PO qd Unknown - Strength 06/19/2018 81mg Tablets Medications Administered in Office Medication SIG Qnty Indications Ordering Provider Date Influenza Virus Vaccine Geraldo Saab M.D. 11/24/2014 Injection Influenza Virus Vaccine Unknown 12/24/2013 Injection Immunizations CPT Code Status Date Vaccine Lot # [id number] Given 12/11/2017 Fluzone High Dose [id number] Given 01/14/2016 Fluzone High Dose 69198 Given 08/31/2014 Tdap - Tetanus/Diptheria/Acellular Pertussis [id number] 13075 Given 08/31/2014 Pneumococcal Conjugate Vaccine 13 Valent For [id number] Intramuscular Use 33618 Given 07/28/2010 Pneumonia Vaccine [id number] 09991 Given 01/14/2009 Influenza Virus 3Yrs & Over 48405 Given 09/07/2008 Zoster (Zostavax) 59851 Given 01/01/2008 Influenza Virus 3Yrs & Over 30293 Given 07/13/2004 Td (History By Patient) Vital Signs Date Vital Result Comment 07/10/2018 3:05pm Height 70 inches 5'10" Weight [...] H/L Range Note CBC Auto Diff 06/18/2018 [facility] White Blood 9.7 10^3/uL N 3.5-10.[address] [place] [address] [phone] Red Blood Count 4.16 10^6/uL Low 4.18-5.48 [...] Red Blood Cells % 0.1 Inr/Protime 06/18/2018 [facility] Inr 0.97 N 0.77-1.[address] [place] [address] [phone] Laboratory test 06/18/2018 [facility] Partial 27.7 seconds N 26.0-36.[address] [place] [address] PTT [phone] Laboratory test 06/18/2018 [facility] Creatine 57 U/L N 10- [address] Kinase(CK) [place] [address] [phone] Comp Metabolic 06/18/2018 [facility] Sodium 137 mmol/L N 135- [address] [place] [address] [phone] Potassium 4.1 mmol/L N 3.5-5.0 Chloride 106 [...] 143.2 >60 1 CBC Auto Diff 06/07/2018 [facility] White Blood 7.5 10^3/uL N 3.5-10.[address] [place] [address] [phone] Red Blood Count 4.02 10^6/uL Low 4.18-5.48 [...] Blood Cells % 0.1 Laboratory test 06/07/2018 [facility] Lactic Acid 0.7 mmol/L N 0.5-2.0 2 finding [address] [place] [address] [phone] Comp Metabolic 06/07/2018 [facility] Sodium 138 mmol/L N 135- 145 Panel [address] [place] [address] [phone] Potassium 4.1 mmol/L N 3.5-5.0 Chloride 106 [...] Egfr 111.4 >60 3 Urinalysis Profile 06/07/2018 [facility] Urine Color Yellow [address] [place] [address] [phone] Urine Appearance Clear Urine Specific [place] 1.026 N 1.010-1.030 Urine pH 5.0 N 5-9 Urine Urobilinogen Negative Negative Urine Ketones Trace Abnormal Negative Urine Protein Negative Negative Urine Leukocytes Negative Negative Urine Blood Negative Negative * * Abnormal Negative 4 Urine Nitrite Negative Negative Urine Bilirubin Negative Negative Urine Glucose Negative Negative Laboratory test 06/07/2018 [facility] Point of Care 130 mg/dL High 70-[address] [place] [address] [phone] Comp Metabolic 05/20/2018 [facility] Sodium 140 mmol/L N 135- [address] [place] [address] [phone] Potassium 4.6 mmol/L N 3.5-5.0 Chloride 104 [...] 81.1 >60 6 CBC Auto Diff 05/20/2018 [facility] White Blood 6.4 10^3/uL N 3.5-10.[address] [place] [address] [phone] Red Blood Count 4.28 10^6/uL N 4.00-5.40 [...] Blood Cells % 0 Laboratory test 05/20/2018 [facility] Magnesium 2.2 mg/dL N 1.9-2.[address] [place] [phone] Cortisol 8.10 g/dL 7 B-Type Natriuretic Peptide BNP 32 pg/mL <=100 Inr/Protime 02/10/2018 [facility] Inr 0.95 N 0.77-1.[address] [place] [address] [phone] Urinalysis Profile 02/10/2018 [facility] Urine Color Yellow [address] [place] [address] [phone] Urine Appearance Clear Urine Specific [place] 1.020 N 1.010-1.030 Urine pH 6.0 N 5-9 Urine Urobilinogen Negative Negative Urine Ketones Trace Abnormal Negative Urine Protein Negative Negative Urine Leukocytes Negative Negative Urine Blood Negative Negative * * Abnormal Negative 8 Urine Nitrite Negative Negative Urine Bilirubin Negative Negative Urine Glucose Negative Negative CBC Auto Diff 02/10/2018 [facility] White Blood 5.8 10^3/uL N 3.5-10.8 [address] [place] [address] [phone] Red Blood Count 4.67 10^6/uL N 4.00-5.40 [...] Blood Cells % 0 Laboratory test 02/10/2018 [facility] Lactic Acid 0.8 mmol/L N 0.5-2.0 9 finding [address] [place] [address] [phone] Comp Metabolic 02/10/2018 [facility] Sodium 138 mmol/L N 135- 145 Panel [address] [place] [address] [phone] Potassium 4.7 mmol/L N 3.5-5.0 Chloride 101 [...] Egfr 95.2 >60 10 Laboratory test 02/10/2018 [facility] Magnesium 2.0 mg/dL N 1.9-2.[address] [place] [address] [phone] C Reactive Protein < 1.00 mg/L N <8.01 Troponin-I (TnI) 0.00 ng/mL <0.04 TSH (Thyroid Stim Horm) 1.44 mcIU/mL N 0.34-5.60 CBC Auto Diff 07/31/2017 [facility] White Blood 5.7 10^3/uL N 3.5-10.[address] [place] [address] [phone] Red Blood Count 4.22 10^6/uL N 4.0-5.4 [...] Cells % 0.1 Comp Metabolic Panel 07/31/2017 [facility] Sodium 139 mmol/L N 139-[address] [place] [address] [phone] Potassium 4.7 mmol/L N 3.5-5.0 Chloride 102 [...] Egfr 118.8 >60 11 Laboratory test 07/31/2017 [facility] Magnesium 1.9 mg/dL N 1.9-2.7 finding [address] [place] [address] [phone] TSH (Thyroid Stim Horm) 1.83 mcIU/mL N 0.34-5.60 B-Type Natriuretic Peptide BNP 34 pg/mL 12 Laboratory test finding 06/21/2017 [facility] Magnesium <pending > [address] [place] [address] [phone] TSH (Thyroid Stim Horm) <pending> Laboratory 06/21/2017 [facility] B-Type <pending> test finding [address] [facility] [place] [address] Peptide BNP [phone] Laboratory 05/02/2017 [facility] Rapid Strep Negative Negative 13 test finding [address] [facility] [place] [address] [phone] Lipid Profile 04/04/2017 [facility] Triglycerides 37 mg/dL 14 (Trig/Chol/HDL [address] ) [place] [address] [phone] Cholesterol 160 mg/dL 15 HDL Cholesterol 72.1 mg/dL 16 LDL Cholesterol 81 mg/dL 17 Laboratory test 04/04/2017 [facility] PSA 3.049 ng/mL 0-4.0 [address] [place] [address] [phone] Urine Culture And 10/07/2016 [facility] Urine SEE RESULT 19 , Sensitivities [address] Culture BELOW 20 [place] [address] [phone] Poc Urinalysis 10/07/2016 [facility] Poc Glucose, Negative N Negative [address] [place] [address] [phone] Poc Bilirubin, Urine Negative N Negative Poc Ketone, Urine Negative N Negative Poc Specific [place], Urine 1.025 N 1.010-1.030 Poc Blood, Urine Trace-intact Abnormal Negative Poc pH, Urine 6.0 N 5-9 Poc Protein, Urine Negative N Negative Poc Urobilinogen, Urine 0.2 N Negative Poc Nitrite, Urine Negative N Negative Poc Leukocytes, Urine Trace Abnormal Negative Poc Color, Urine Yellow N Poc Clarity, Urine Slightly Cloudy N 21 Laboratory test 04/07/2016 [facility] B-Type Natriuretic 50 pg/ mL N [address] [place] [address] [phone] TSH (Thyroid Stim Horm) 1.79 mcIU/mL N 0.34-5.60 Magnesium 1.8 mg/dL Low 1.9-2.7 Basic Metabolic Panel 04/07/2016 [facility] Sodium 139 mmol/L N 133-[address] [place] [address] [phone] Potassium 4.3 mmol/L N 3.5-5.0 Chloride 103 mmol/L N 101-111 Co2 Carbon Dioxide 31 mmol/L N 22-32 Anion Gap 5 mmol/L N 2-11 Glucose 90 mg/dL N 70-100 Blood Urea Nitrogen 17 mg/dL N 6-24 Creatinine 0.80 mg/dL N 0.67-1.17 BUN/Creatinine Ratio 21.3 High 8-20 Calcium 9.0 mg/dL N 8.6-10.3 Egfr Non- 95.3 N >60 Egfr 122.6 N >60 23 Lipid Profile 04/01/2016 [facility] Triglycerides 44 mg/dL N 24 (Trig/Chol/HDL) [address] [place] [address] [phone] Cholesterol 169 mg/dL N 25 HDL Cholesterol 71.6 mg/dL N 26 LDL Cholesterol 89 mg/dL N 27 Basic Metabolic Panel 01/21/2016 [facility] Sodium 140 mmol/L N 133-[address] [place] [address] [phone] Potassium 4.6 mmol/L N 3.5-5.0 Chloride 105 [...] N >60 28 CBC Auto Diff 01/21/2016 [facility] White Blood 6.0 10^3/uL N 3.5-10.[address] [place] [address] [phone] Red Blood Count 4.41 10^6/uL N 4.0-5.4 [...] Cells % 0 N Urinalysis Profile 01/21/2016 [facility] Urine Color Yellow N [address] [place] [address] [phone] Urine Appearance Cloudy N Urine Specific [place] 1.023 N 1.010-1.030 Urine pH 5.0 N 5-9 Urine Urobilinogen Negative N Negative Urine Ketones Negative N Negative Urine Protein Negative N Negative Urine Leukocytes Negative N Negative Urine Blood Negative N Negative * * Abnormal Negative 29 Urine Nitrite Negative N Negative Urine Bilirubin Negative N Negative Urine Glucose Negative N Negative Inr/Protime 01/21/2016 [facility] Inr 0.98 N 0.89-1.[address] [place] [address] [phone] Laboratory test 01/21/2016 [facility] Partial 31.6 seconds N 26.0-36.[address] [place] [place] [address] PTT [phone] CBC Auto Diff 12/25/2015 [facility] White Blood 6.0 10^3/uL N 3.5-10.[address] [place] [address] [phone] Red Blood Count 4.45 10^6/uL N 4.0-5.4 [...] Cells % 0.1 N Laboratory test 12/25/2015 [facility] B-Type 78 pg/mL N [address] [place] [address] Peptide BNP [phone] Inr/Protime 12/25/2015 [facility] Inr 1.00 N 0.89- [address] 1.11 [place] [address] [phone] Laboratory test 12/25/2015 [facility] Partial Thrombo 31.1 seconds N 26.0- finding [address] Time PTT 36.3 [place] [address] [phone] Lactic Acid 0.8 mmol/L N 0.5-2.0 31 Comp Metabolic Panel 12/25/2015 [facility] Sodium 137 mmol/L N 133-[address] [place] [address] [phone] Potassium 4.1 mmol/L N 3.5-5.0 Chloride 102 [...] 124.7 N >60 32 Laboratory test 12/25/2015 [facility] Magnesium 1.8 mg/dL Low 1.9-2.[address] [place] [address] [phone] Lipase 7 U/L Low 11.0-82.0 Creatine Kinase(CK) 58 U/L N 10-223 C Reactive Protein < 1.00 mg/L N < 5.00 33 Troponin-I (TnI) 0.00 ng/mL N <0.03 34 CKMB 12/25/2015 [facility] CKMB ng/mL 2.1 ng/mL N 0.6-6.[address] [place] [address] [phone] Laboratory test 12/25/2015 [facility] TSH (Thyroid 1.77 N 0.34 -5.[address] Stim Horm) mcIU/[place] [address] [phone] Laboratory test 02/03/2015 [facility] PSA Diagnostic 2.347 N 0 -4.[address] ng/[place] [address] [phone] Laboratory test 12/03/2014 [facility] Troponin-I 0.00 N <0.03 36, 37 finding [facility] (TnI) ng/[place] [address] [phone] Magnesium 1.9 mg/dL N 1.9-2.7 38 Basic Metabolic Panel 12/03/2014 [facility] Sodium 139 mmol/L N 133-145 [address] [place] [address] [phone] Potassium 4.0 mmol/L N 3.5-5.0 Chloride 101 [...] >60 39 Iron & Iron Binding 09/09/2014 [facility] Iron 75 g/dL N 50- 212 [address] [place] [address] [phone] Unsaturated Iron Binding 260 g/dL N Total Iron Binding Capacity 335 g/dL N 250-450 % Iron Saturation 22 % N 15-55 Laboratory test 09/09/2014 [facility] Creatine 61 U/L N 10- [address] Kinase(CK) [place] [address] [phone] Lipid Profile 09/09/2014 [facility] Triglycerides 39 mg/dL N 41 (Trig/Chol/HDL) [address] [place] [address] [phone] Cholesterol 148 mg/dL N 42 HDL Cholesterol 67.3 mg/dL N 43 LDL Cholesterol 73 mg/dL N 44 Comp Metabolic Panel 09/09/2014 [facility] Sodium 140 mmol/L N 133-[address] [place] [address] [phone] Potassium 4.2 mmol/L N 3.5-5.0 Chloride 105 [...] 119.8 N >60 45 Laboratory test 09/09/2014 [facility] B-Type 17 pg/mL N [address] [place] [address] Peptide BNP [phone] CBC Auto Diff 09/09/2014 [facility] White Blood 4.4 Low 4.8-[address] Count 10^3/uL 0.8 [place] [address] [phone] Red Blood Count 4.67 10^6/uL N 4.0-5.4 [...] Blood Cells % 0 N Laboratory 09/09/2014 [facility] TSH (Thyroid Stim 1.44 N 0.34 -5.60 47 test finding [facility] Horm) ?IU/[place] [address] [phone] Lipid Profile 12/31/2013 [facility] Triglycerides 51 mg/dL N 48 (Trig/Chol/HDL DRIVE ) [place], [place] [address] [phone] Cholesterol 156 mg/dL N 49 HDL Cholesterol 73.3 mg/dL N 50 LDL Cholesterol 73 mg/dL N 51 Laboratory test finding 12/31/2013 [facility] Glucose 93 mg/dL N 70-100 [place] [address] [phone] Hemoglobin A1c 5.5 % N Less than 6.0 52 Comp Metabolic Panel 12/31/2013 [facility] Sodium 139 mmol/L N 133-145 [address] [place] [address] [phone] Potassium 4.2 mmol/L N 3.7-5.6 Chloride 105 [...] 127.3 N >60 53 Laboratory test 06/23/2013 [facility] Hemoglobin A1c 5.4 5-7 finding Laboratory test 09/25/2012 [facility] PSA Screening 2.72 ng/mL 0-4.0 54 finding [address] [place] [address] [phone] Lipid Profile 07/05/2012 [facility] Triglycerides 43 mg/dL 40 -200 (Trig/Chol/HDL) [address] [place] [address] [phone] Cholesterol 172 mg/dL Less than 200 HDL Cholesterol 70 mg/dL High 40-60 55 Cholesterol/HDL Ratio 2.5 Average 1-4.44 LDL Cholesterol 93.4 mg/dL Less Than 100 56 Comp Metabolic Panel 07/05/2012 [facility] Sodium 139 mmol/L 133-145 [address] [place] [address] [phone] Potassium 4.3 mmol/L 3.5-5.0 Chloride 103 mmol/L [...] Egfr 95.9 >60 57 Laboratory test 07/05/2012 [facility] Creatine 76 U/L 0-200 [address] [place] [address] [phone] CBC Auto Diff 07/05/2012 [facility] White Blood 5.0 4.8-10.[address] Count 10^3/[place] [address] [phone] Red Blood Count 4.50 10^6/uL 4.0-5.4 Hemoglobin [...] Blood Cells % 0 Laboratory test 07/05/2012 [facility] TSH (Thyroid 1.79 0.34- 5.60 [address] Stimulating miu/[place] [address] Horm) [phone] Laboratory test 03/27/2012 [facility] PSA Screening 2.85 ng/mL 0-4.0 [address] [place] [address] [phone] Laboratory test 11/24/2011 [facility] Vitamin B12 303 pg/mL 180-914 finding [address] [place] [address] [phone] TSH 1.34 MIU/ML 0.34-5.60 Lipid Profile 10/26/2011 [facility] Triglyceride 33 mg/dL Low 40-200 (Trig/Chol/HDL) [address] [place] [address] [phone] Cholesterol 165 mg/dL Less Than 200 61 High Density Lipoprotein 68 mg/dL High 40-60 62 Cholesterol/HDL Ratio 2.43 AVERAGE 1-4.97 Low Density Lipoprotein 90 mg/dL Less Than 100 63 CBC With Manual 10/26/2011 [facility] White Blood 4.6 CUMM Low 4.8-10.8 Diff 101 [place] [address] [phone] Red Cell Count 4.13 CUMM Low 4.6-6.2 [...] Anisocytosis SLIGHT Macrocytosis FEW Laboratory test 10/26/2011 [facility] BNP Evaluatr 42.0 pg/mL 0-100 finding [address] [place] [address] [phone] Comp Metabolic 10/26/2011 [facility] Sodium 138 mmol/L 135- 145 Panel [address] [place] [address] [phone] Potassium 4.3 mmol/L 3.5-5.0 Chloride 105 mmol/L [...] eGFR 124.4 > 60 66 Laboratory 09/21/2011 [facility] PSA,Diagnostic 3.63 0-4 67 test finding [address] NG/[place] [address] [phone] Laboratory 07/17/2011 [facility] PSA,Diagnostic 13.31 High 0- 4 68 test finding [address] NG/[place] [address] [phone] Urine Culture 07/17/2011 [facility] M --------- 69 & Sensitivi [address] ------- [place] [address] <SEE [phone] NOTE> Laboratory 07/17/2011 [facility] Hemoglobin A1c 5.5 5-7 test finding CBC Auto Diff 06/13/2011 [facility] White Blood Count 5.8 CUMM 4.8-10. [address] [place] [address] [phone] Red Cell Count 4.41 CUMM Low 4.6-6.2 [...] Basophils 0 0-0.2 Comp Metabolic Panel 06/13/2011 [facility] Sodium 140 mmol/L 135-[address] [place] [address] [phone] Potassium 4.8 mmol/L 3.5-5.0 Chloride 106 mmol/L [...] 108.6 > 60 72 Laboratory test 06/13/2011 [facility] Erythrocyte Sed 5 MM/HR 0-[address] [place] [address] [phone] Rheumatoid Factor < 15 IU/mL <15 73 Pattie (Antinuclear 06/13/2011 [facility] Antinuclear AB NEGATIVE Negative Antibodies) [address] [place] [address] [phone] Laboratory test 06/13/2011 [facility] C Reactive < 0.5 mg/dL Less Than finding [address] Protein 0.5 [place] [address] [phone] Thyroxine Free 0.87 ng/dL 0.61-1.24 TSH 1.33 MIU/ML 0.34-5.60 Lyme Disease Serology Negative Negative 74 Testosterone 06/13/2011 [facility] Free 6.2 Abnormal 9-30 75 Free & Total [address] Testosterone ng/[place] [address] [phone] Total Testosterone 327 ng/dL 240-950 76 Laboratory test 05/15/2011 [facility] PSA,Diagnostic 2.96 NG/ML 0-4 [address] [place] [address] [phone] Laboratory test 02/15/2011 [facility] PSA,Diagnostic 3.17 NG/ML 0-4 [address] [place] [address] [phone] Laboratory test 12/27/2010 [facility] PSA,Diagnostic 9.59 NG/ML High 0-4 [address] [place] [address] [phone] Laboratory test 12/07/2010 [facility] PSA,Diagnostic 50.49 High 0-4 [address] NG/[place] [address] [phone] DR [facility] 09/05/2010 [facility] TSH 2.08 0.34-5. Panel [address] MIU/ML 60 [place] [address] [phone] Comp Metabolic 09/05/2010 [facility] Sodium 138 mmol/L 135- [address] [place] [address] [phone] Potassium 4.4 mmol/L 3.5-5.0 Chloride 105 mmol/L [...] 124.8 > 60 83 Lipid Profile 09/05/2010 [facility] Triglyceride 42 mg/dL 40- 200 (Trig/Chol/HDL) [address] [place] [address] [phone] Cholesterol 176 mg/dL Less Than 200 84 High Density Lipoprotein 68 mg/dL High 40-60 85 Cholesterol/HDL Ratio 2.59 AVERAGE 1-4.97 Low Density Lipoprotein 100 mg/dL Less Than 100 86 CBC Auto Diff 09/05/2010 [facility] White Blood 5.0 CUMM 4.8- 10.[address] [place] [address] [phone] Red Cell Count 4.33 CUMM Low 4.6-6.2 [...] Abs Basophils 0 0-0.2 CBC With 09/01/2009 [facility] White Blood 5.4 CUMM 4.8-10.8 Electronic Diff [address] [place] [address] [phone] Red Cell Count 4.47 CUMM Low 4.6-6.2 [...] Abs Basophils 0 0-0.2 Lipid Profile 09/01/2009 [facility] Triglyceride 47 mg/dL 40- 200 (Trig/Chol/HDL) [address] [place] [address] [phone] Cholesterol 170 mg/dL Less Than 200 87 High Density Lipoprotein 63 mg/dL High 40-60 88 Cholesterol/HDL Ratio 2.70 AVERAGE 1-4.97 Low Density Lipoprotein 98 mg/dL Less Than 100 89 Comp Metabolic Panel 09/01/2009 [facility] Sodium 135 mmol/L 135-145 [address] [place] [address] [phone] Potassium 4.7 mmol/L 3.5-5.0 Chloride 103 mmol/L [...] > [address] [facility] 09/01/2009 [facility] TSH 1.46 0.34-5.[address] MIU/[place] [address] [phone] Laboratory test 01/12/2009 [facility] PSA,Diagno 2.00 NG/ML 0 -4 95, [address] [place] [address] [phone] CBC With 08/11/2008 [facility] White 4.6 CUMM Low 4.8-10.8 Electronic Diff [address] [place] [address] Count [phone] Red Cell Count 4.54 CUMM Low 4.6-6.2 [...] Basophils 0 0-0.2 Comp Metabolic Panel 08/11/2008 [facility] Sodium 139 mmol/L 135-[address] [place] [address] [phone] Potassium 5.2 mmol/L High 3.5-5.0 Chloride 108 [...] (Sgot) 19 U/L 12-42 Lipid Profile 08/11/2008 [facility] Triglyceride 24 mg/dL Low 40-200 (Trig/Chol/HDL) [address] [place] [address] [phone] Cholesterol 176 mg/dL Less Than 200 101 High Density Lipoprotein 66 mg/dL High 40-60 102 Cholesterol/HDL Ratio 2.67 AVERAGE 1-4.97 Low Density Lipoprotein 105 mg/dL High Less Than 100 103 Laboratory test 08/11/2008 [facility] TSH 1.07 MIU/ML 0.34- 5.60 finding [address] [place] [address] [phone] Laboratory test 01/01/2008 [facility] PSA,Diagno 1.59 NG/ML 0 -4 104 finding 101 [facility] [address] [phone] CBC With 07/10/2007 [facility] White 4.7 CUMM Low 4.8-10.8 Electronic Diff 101 [facility] [place] [address] Count [phone] Abs Basophils 0 0-0.2 Abs Eosinophils 0 [...] 14 % 10.5-15 Comp Metabolic Panel 07/10/2007 [facility] One Over Creatinine 1.[address] [place] [address] [phone] Anion Gap -3.0 mmol/L Low 2-11 105 [...] Creatinine 0.9 mg/dL 0.5-1.4 Lipid Profile 07/10/2007 [facility] Cholesterol/HDL 2.87 1- 4.97 (Trig/Chol/HDL) [address] [place] [address] [phone] Cholesterol 172 mg/dL Less Than 200 106 Triglyceride 31 mg/dL Low 40-200 High Density Lipoprotein 60 mg/dL 40-60 107 Low Density Lipoprotein 106 mg/dL High Less Than 100 108 Laboratory test 07/10/2007 [facility] PSA Screening 2.29 NG/ML 0-4 [address] [place] [address] [phone] TSH 1.46 MIU/ML 0.34-5.60 1 Because ethnic [...] 5 Kidney failure <15 (or dialysis) 2 [facility] Severe Sepsis and Septic Shock Management [...] may interfere with detection of blood. 5 Food Vendor: [id number] 6 Because ethnic data is not always [...] may interfere with detection of blood. 9 [facility] Severe Sepsis and Septic Shock Management [...] pg/mL: likely moderate to severe CHF 13 Food Vendor: [id number] 14 Desirable: <150 Borderline High: 150-199 High: 200-499 Very High: >500 15 Desirable: <200 Borderline High: 200-239 High: >239 16 Low: <40 Desirable: 40-60 High: >60 17 Desirable: <100 Near Optimal: 100-129 Borderline High: 130-159 High: 160-189 Very High: >189 18 Serum levels of PSA measured using the [employer] DXI Hybritech immunoassay should not be interpreted as absolute evidence of the presence or absence of disease. The PSA value should be used in conjunction with other pertinent clinical diagnostic procedures. The values obtained with different assay methods or kits cannot be used interchangeably. 19 [id number] 20 SEE RESULT BELOW Name: CHRIS Artem DIGGS : [address]: Amee Banuelos MD Acct: [id number] Unit: [id number] AGE: 71 Location: [facility] Re10/07/16 SEX: M Status: DEP ER SPEC: [id number] JC: 10/07/[address] [facility] [address]: Amee Banuelos MD REQ: [id number] RECD: 10/07/16 STATUS: NATANAEL ESCOBAR DR: Geraldo Saab III, MD _ SOURCE: URINE SPDESC: ORDERED: Urine Culture COMMENTS: [id number] Procedure Result Reported Site Urine Culture Final 10/08/16- 1250 ML No Growth (<1,000 CFU/mL) * ML - MAIN LAB (PSC1) . END OF REPORT * ML=Testing performed at Main Lab DEPARTMENT OF PATHOLOGY, [address] [place] [address] Jimmy Prater M.D. Director [facility] # [id number] 21 Food Vendor: [id number] 22 >100 to <200 pg/mL: likely compensated [...] pg/mL: likely moderate to severe CHF 31 [facility] Severe Sepsis and Septic Shock Management [...] 0.03 ng/mL Not supportive of diagnosis of CA 0.03 - 0.50 ng/mL Indeterminate: suggest serial studies if clinically indicated. Greater than 0.5 ng/mL Consistent with diagnosis of CA 35 Serum levels of PSA measured using the [employer] DXI Hybritech immunoassay should not be interpreted as absolute evidence of the presence or absence of disease. The PSA value should be used in conjunction with other pertinent clinical diagnostic procedures. The values obtained with different assay methods or kits cannot be used interchangeably. 36 CALL RESULTS TO TODAY [phone] Reference Range and Interpretation: TnI (ng/mL) Interpretation Less Than 0.03 ng/mL Not supportive of diagnosis of CA 0.03 - 0.50 ng/mL Indeterminate: suggest serial studies if clinically indicated. Greater than 0.5 ng/mL Consistent with diagnosis of CA 38 CALL RESULTS TO TODAY [phone] Because ethnic data is not always [...] and in selective patients <6.0%.Please refer to [place] Diabetes Association Diabetic care guidelines for further [...] Serum levels of PSA measured using the [employer] DXI Hybritech immunoassay should not be interpreted [...] Serum levels of PSA measured using the [employer] DXI Hybritech immunoassay should not be interpreted [...] has been shown to interfere with the Jendrassik-Eudora method for measuring total bilirubin. Samples from [...] SERUM LEVELS OF PSA MEASURED USING THE [employer] ACCESS HYBRITECH IMMUNOASSAY SHOULD NOT BE INTERPRETED [...] be used interchangeably. 69 RUN DATE: 07/19/11 [facility] NMI LIVE PAGE 1 RUN TIME: 1149 Specimen Inquiry RUN USER: INTERFACE Name: CHRIS Artem Status: REG REF Re07/17/11 Age/Sex: 66/M Unit#: [id number] Location: [facility] : 45 SPEC #: [id number] JC: 07/17/11 STATUS: NATANAEL REQ #: [id number] RECD: 07/17/[address]: Geraldo Saab III, MD SOURCE: URINE ENTR: 07/17/[address]: FRED: ORDERED: URINE C S QUERIES: MEDENT REQUISITION # [id number] ACT WKST: UR 07/19/11 #1 Procedure Result [...] *These antibiotics are not available in the [facility] Formulary. Contact the Microbiology Department for any additional antibiotic reporting. [place] [facility] Permit #[id number] [address] [place] [address] DEPARTMENT OF PATHOLOGY, [address] [place] [address] [facility] Permit #[id number] Jimmy Prater M.D. Director Michelle Nelson M.D. Political Aide 70 Anion gap measurement may be of [...] <15 (or dialysis) 73 Test Performed by: [facility] Dpt of Lab Med and Pathology [address] [place] [address] Boat Joiner Helper: Kobe Jimenez III, M.D. 74 Serologic response to B. burgdorferi infection is not detected, but cannot rule out early infection during which low or undetectable antibody levels to B. burgdorferi may be present. If clinically indicated, a new serum specimen should be submitted in 7-14 days. Test Performed by: [facility] Dpt of Lab Med and Pathology [address] [place] [address] Boat Joiner Helper: Kobe Jimenez III, M.D. 75 Test Performed by: [facility] Dpt of Lab Med and Pathology [address] [place] [address] Boat Joiner Helper: Kobe Jimenez III, M.D. 76 Test Performed by: [facility] Dpt of Lab Med and Pathology [address] [place] [address] Boat Joiner Helper: Kobe Jimenez III, M.D. 77 * SERUM LEVELS OF PSA MEASURED USING THE [employer] ACCESS HYBRITECH IMMUNOASSAY SHOULD NOT BE INTERPRETED [...] change was based on recommendations from the [place] Diabetes Association. 92 Please note change in [...] change was based on recommendations from the [place] Diabetes Association. 99 Please note change in reference range effective 07 . 100 A metabolite of Naproxen, O-desmethylnaproxen, has been shown to interfere with the Jendrassik-Eudora method for measuring total bilirubin. Samples from [...] LEVELS OF PSA MEASURED USING THE [employer] ACCESS HYBRITECH IMMUNOASSAY SHOULD NOT BE INTERPRETED [...] SERUM LEVELS OF PSA MEASURED USING THE [employer] ACCESS HYBRITECH IMMUNOASSAY SHOULD NOT BE INTERPRETED ABSOLUTE EVIDENCE OF THE PRESENCE OR ABSENCE OF DISEASE. THE PSA VALUE SHOULD BE USED IN CONJUNCTION WITH OTHER PERTINENT CLINICAL DIAGNOSTIC PROCEDURES. Procedures Date Code Description Status 07/10/2018 47364 EKG Tracing & Interpretation Completed 05/20/2018 46407 EKG Tracing & Interpretation Completed 01/22/2018 24897 Neurostimulator Pulse Generator Analysis W/O Completed Reprogramming 12/19/2017 89281 EKG Tracing & Interpretation Completed 08/07/2017 41197 ECG Monitor/Recording W/Visual Superimposition Scanning Completed 07/13/2017 19361 Treadmill Interp/Report Only Completed 07/13/2017 82129 Stress Test Supervsn W/Out I/R Completed 07/10/2017 26792 ECHO Transthoracic, Real-Time 2D With Doppler And Color Completed Flow 07/10/2017 99827 ECHO Transthoracic, Real-Time 2D With Doppler And Color Completed Flow 06/21/2017 10356 EKG Tracing & Interpretation Completed 09/04/2016 56179363 Colonoscopy Completed 06/20/2016 28789 EKG Tracing & Interpretation Completed 04/07/2016 06787 EKG Tracing & Interpretation Completed 01/05/2016 21313 EKG Tracing & Interpretation Completed 04/21/2015 60472 EKG Tracing & Interpretation Completed 12/16/2014 92984 ECHO Transthoracic, Real-Time 2D With Doppler And Color Completed Flow 12/08/2014 85086 EKG Tracing & Interpretation Completed 12/04/2014 07901 Treadmill Interp/Report Only Completed 12/04/2014 21180 Stress Test Supervsn W/Out I/R Completed 09/24/2014 66856 Pulmonary Function><Bronchodil Completed 09/24/2014 47914 Diffusing Capacity Completed 09/24/2014 07482 Plethysmography Determination Lung Volumes & Per Airway Completed Resist 09/09/2014 50117 ECHO Transthoracic, Real-Time 2D With Doppler And Color Completed Flow 09/07/2014 66890 EKG Tracing & Interpretation Completed 06/18/2014 82099 Repair Hernia Inguinal > 5Yrs, Reducible Completed 06/18/2014 38753 Repair Hernia Umbilical > 5 Yrs, Reducible Completed 06/12/2014 51022 ECHO Transthoracic, Real-Time 2D With Doppler And Color Completed Flow 05/29/2014 28632 Treadmill Interp/Report Only Completed 05/29/2014 02233 Stress Test Supervsn W/Out I/R Completed 04/21/2014 24680 EKG Tracing & Interpretation Completed 09/24/2013 44371 Holter Monitoring 24 HR New Completed 09/09/2013 82734 ECHO Stress Test Incl Perf Contiuous ekg Monitoring Completed W/Phys Superv 09/05/2013 90677 ECHO Transthoracic, Real-Time 2D With Doppler And Color Completed Flow 08/08/2013 18234 EKG Tracing & Interpretation Completed 05/30/2012 59605 EKG Tracing & Interpretation Completed 11/23/2011 19531 Treadmill Interp/Report Only Completed 11/23/2011 69779 Stress Test Supervsn W/Out I/R Completed 11/22/2011 64062 ECHO Stress Test Incl Perf Contiuous ekg Monitoring Completed W/Phys Superv 11/22/2011 18886 ECHO Stress Test Incl Perf Contiuous ekg Monitoring Completed W/Phys Superv 08/24/2011 90393 Color Flow Doppler/Interp & Reprt Completed 08/24/2011 42233 Pulse Wave/Continuous-Interp.RPT Completed 08/24/2011 31718 ECHO Transthorasic Realtime 2D W Doppler & Color Flow Completed Hosp 08/17/2011 12538 EKG Tracing & Interpretation Completed 09/22/2005 35192682 Colonoscopy Completed Encounters Type Date Location Provider [...] knee, initial encounter Office Visit 06/04/2018 9:00a [facility] Neri Curry [facility] Josue disease I95.1 Orthostatic hypotension G47.33 Obstructive sleep apnea (adult) (pediatric) Office Visit 05/20/2018 2:00p [facility] Isabel Bruno I95.1 Orthostatic Of [facility] Sunny N.PPriti hypotension I49.3 Ventricular premature depolarization I49.5 Sick sinus syndrome R06.00 Dyspnea, unspecified Office Visit 04/29/2018 3:20p [facility] Geraldo Cruz M54.5 Low back pain Kelsey - Josue Saabfranklin K59.00 Constipation, unspecified R12 Heartburn Office Visit 04/16/2018 12:00p [facility] Neri Curry [facility] Josue disease G47.33 Obstructive sleep apnea (adult) (pediatric) R42 Dizziness and giddiness R26.81 Unsteadiness on feet Office Visit 03/15/2018 1:45p [facility] Neri Curry [facility] Josue disease G47.33 Obstructive sleep apnea (adult) (pediatric) R42 Dizziness and giddiness R26.81 Unsteadiness on feet Office Visit 01/22/2018 9:15a [facility] Neri Curry [facility] Josue disease G47.33 Obstructive sleep apnea (adult) (pediatric) R42 Dizziness and giddiness R26.81 Unsteadiness on feet Z96.89 Presence of other specified functional implants Office Visit 12/19/2017 2:30p [facility] Nahun Holder G47.33 Obstructive sleep Josue Clay apnea (adult) (pediatric) I49.3 Ventricular premature depolarization R42 Dizziness and giddiness I49.5 Sick sinus syndrome Office Visit 10/19/2017 Pulmonology And Shira G47.33 Obstructive sleep 10:30a [facility] [place], RN, apnea (adult) [facility] ASHLEY-DOMINGA (pediatric) R68.84 Jaw pain Office Visit 08/21/2017 11:30a [facility] Isabel Correa, R42 Dizziness and Of [facility] Ben giddiness I49.3 Ventricular premature depolarization R94.39 Abnormal result of other cardiovascular function study R06.00 Dyspnea, unspecified Office Visit 08/15/2017 [facility] Rosaline Cruz 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 Office Visit 07/27/2017 [facility] Shira G47.33 Obstructive sleep 10:45a [facility] [place], apnea (adult) [facility] RN, CUSTOMER CARE AGENT-BC (pediatric) Office Visit 07/11/2017 [facility] SPriti G20 Parkinson's disease 3:45p [facility] Josue Alaniz R68.84 Jaw pain Office Visit 06/21/2017 9:00a [facility] Nahun Holder G20 Parkinson 's [facility] Josue Clay disease R94.39 Abnormal result of other cardiovascular function study R42 Dizziness and giddiness R06.00 Dyspnea, unspecified I49.3 Ventricular premature depolarization Office Visit 04/12/2017 [facility] Rosaline Cruz M26.623 Arthralgia of 11:40a Kelsey Saab M.D. bilateral [place] temporomandibular joint Office Visit 04/10/2017 [facility] Rosaline Cruz Z00.00 Encntr for general 1:20p Kelsey [...] Sleep apnea, unspecified Office Visit 07/11/2016 9:40a [facility] John Dyer NP M79.672 Pain in left Medicine foot Office Visit 06/20/2016 10:20a [facility] Nahun Holder G20 Parkinson 's Josue Clay disease G47.30 Sleep apnea, unspecified R60.9 Edema, unspecified Office Visit 06/07/2016 3:30p [facility] Bruno G20 [facility] Josue Alaniz disease Office Visit 05/18/2016 10:40a [facility] Kusum Bermudez, J20.9 Acute bronchitis, Medicine N.P. unspecified J01.90 Acute sinusitis, unspecified Office Visit 05/05/2016 [facility] Shira G47.33 Obstructive sleep 11:45a [facility] [place], RN, apnea (adult) [facility] CUSTOMER CARE AGENT- (pediatric) Office Visit 04/07/2016 [facility] Geraldo Cruz Z00.01 Encounter for 9:40a Kelsey Saab M.D. general adult [place] medical exam w abnormal findings G20 Parkinson's disease G47.30 Sleep apnea, unspecified E78.00 Pure hypercholesterolemia, unspecified N40.0 Benign prostatic hyperplasia without lower urinry tract symp R60.0 Localized edema Office Visit 03/10/2016 11:00a [facility] Geraldo Cruz J06.9 Acute upper Kelsey Saab M.D. respiratory [place] infection, unspecified Office Visit 01/28/2016 9:00a [facility] Maxi D17.21 Benign lipomatous Kelsey Kaiser M.D. neoplasm of skin, [place] subcu of right arm R29.6 Repeated falls R22.31 Localized swelling, mass and lump, right upper limb Office Visit 01/05/2016 [facility] Geraldo Cruz Z01.810 Encounter for 11:20a Kelsey Saab M.D. preprocedural [place] cardiovascular examination G20 Parkinson's disease G47.30 Sleep apnea, unspecified Office Visit 11/24/2015 [facility] Bruno G2Nguyễn Parkinson's 9:15a Clinic Josue Alaniz disease Office Visit 06/01/2015 [facility] Ck Bruno G2Nguyễn Parkinson's 2:45p [facility] Josue Alaniz disease Office Visit 04/21/2015 [facility] Nahun Holder G2Nguyễn Parkinson's 11:40a Josue Clay disease E78.0 Pure hypercholesterolemia R07.9 Chest pain, unspecified R06.00 Dyspnea, unspecified R94.31 Abnormal electrocardiogram [ECG] [EKG] Office 02/10/2015 [facility] Bruno G2Nguyễn Parkinson's disease Visit 3:15p Neurologic Josue Alaniz Services [facility] Office 12/24/2014 [facility] Nahun Holder E78.0 Pure hypercholesterolemia Visit 2:40p Cardiology Josue Clay R07.9 Chest pain, unspecified R06.00 Dyspnea, unspecified R00.2 Palpitations Office Visit 12/03/2014 2:00p [facility] HEATHER Marquez 426.4 Right Bundle Branch Block 272.0 Hypercholesterolemia Pure 786.50 Pain Chest Unspec 427.69 Premature Beats Other Office Visit 12/02/2014 4:00p [facility] Geraldo Cruz 786.50 Pain Chest Unspec Kelsey Saab M.D. Office Visit 11/18/2014 2:30p [facility] Ck Bruno 327.23 Obstructive Sleep Services Of Nena Alaniz M.D. Apnea Adult & Pediatric 332.0 Paralysis Agitans Office Visit 10/06/2014 [facility] Shira 327.23 Obstructive Sleep 10:15a [facility] [place], RN, Apnea Adult & [facility] CUSTOMER CARE AGENT- Pediatric Office Visit 10/01/2014 Pulmonology And Sarah Muniz 786.09 Dyspnea & 2:45p Sleep Services Of Respiratory [facility] Abnormalities Other Office Visit 09/07/2014 [facility] Nahun Holder 786.09 Dyspnea & 3:40p Josue Clay Respiratory Abnormalities Other 794.31 Electrocardiogram (ECG) (EKG) Abnormal 426.4 Right Bundle Branch Block Office Visit 09/03/2014 1:00p Pul[facility] And Josef Malik, 786.05 Shortness Of Sleep Services Of Josue Breath [facility] Office Visit 08/31/2014 2:40p [facility] Geraldo Cruz V06.1 Diphtheria- Tetan Medicine Josue Saab us-Pertusis Combined (DTaP) V03.82 Streptococcus Pneumoniae Vaccination Spec Other 786.05 Shortness Of Breath Office Visit 05/29/2014 11:30a [facility] Nahun Holder 550.90 Hernia Inguinal Josue Clay W/O Obstruct Or Gangrene Unilateral Unspec 272.0 Hypercholesterolemia Pure 426.4 Right Bundle Branch Block 794.31 Electrocardiogram (ECG) (EKG) Abnormal 414.01 Coronary Atherosclerosis [place] Office Visit 05/21/2014 4:00p [facility] Geraldo Cruz 550.90 Hernia Inguinal Medicine Josue Saab W/O Obstruct Or Gangrene Unilateral Unspec Office Visit 05/07/2014 4:00p [facility] Geraldo Cruz 550.90 Hernia Inguinal Kelsey Saab M.D. W/O Obstruct Or Gangrene Unilateral Unspec Office Visit 04/28/2014 2:45p [facility] Bruno 332.0 Paralysis Agitans Services Of Nena Alaniz M.D. Office Visit 04/23/2014 9:20a [facility] Geraldo Cruz 465.9 URI Upper Kelsey Saab M.D. Respiratory Infections Acute Unspec Sites 332.0 Paralysis Agitans Office 04/21/2014 [facility] Nahun Holder 272.0 Hypercholesterolemia Pure Visit 3:00p Skylar Clay M.D. 794.31 Electrocardiogram (ECG) (EKG) Abnormal 426.4 Right Bundle Branch Block Office Visit 03/02/2014 [facility] Rosaline Cruz 465.9 URI Upper Respiratory 2:20p Kelsey Saab M.D. Infections Acute Unspec Sites Office Visit 10/29/2013 Maddie Bruno 332.0 Paralysis Agitans 1:45p Neurologic Josue Alaniz Services Of [facility] Office Visit 08/08/2013 Maddie Holder 794.31 Electrocardiogram 3:20p Skylar Clay M.D. (ECG) (EKG) Abnormal 332.0 Paralysis Agitans 272.0 Hypercholesterolemia Pure 414.01 Coronary Atherosclerosis [place] 782.3 Edema Office Visit 07/15/2013 3:00p [facility] Binu Bruno 332.0 Paralysis Services [facility] Josue Alaniz Agitans Office Visit 06/23/2013 11:00a [facility] Geraldo Cruz 790.21 Impaired Fasting Kelsey Saab M.D. Glucose 780.57 Unspecified Sleep Apnea 332.0 Paralysis Agitans 272.0 Hypercholesterolemia Pure Office Visit 01/23/2013 10:30a [facility] Samra Alexis, 477.9 Rhinitis Medicine N.P. Allergic Cause Unspec 465.9 URI Upper Respiratory Infections Acute Unspec Sites Office Visit 01/15/2013 [facility] C[facility] Bruno 332.0 Paralysis Agitans 2:45p Neurologic Josue Alaniz Services [facility] Office Visit 08/27/2012 [facility] Geraldo Cruz 553.1 Hernia Umbilical 1:00p Kelsey Saab M.D. Office Visit 08/02/2012 [facility] Geraldo Cruz 724.5 Backache Unspec 10:20a Kelsey Saab M.D. Office Visit 07/16/2012 [facility] Bruno 332.0 Paralysis Agitans 2:45p Neurologic Josue Alaniz Services [facility] Office Visit 06/19/2012 [facility] Geraldo Cruz 719.46 Pain Joint Lower 2:40p Kelsey Saab M.D. Leg Office Visit 06/10/2012 [facility] Geraldo Cruz 381.19 Otitis Media 10:40a Kelsey Saab M.D. Chronic Serous Other Office Visit 05/30/2012 Maddie Holder 786.09 Dyspnea & 10:20a Cardiology Josue Clay Respiratory Abnormalities Other 426.52 Right Bundle Branch Block W/ Left Anterior Fascicular Block 794.31 Electrocardiogram (ECG) (EKG) Abnormal Office Visit 05/03/2012 11:20a [facility] Geraldo Cruz 465.9 URI Upper Kelsey Saab M.D. Respiratory Infections Acute Unspec Sites 382.9 Otitis Media Unspec Office Visit 04/03/2012 3:40p [facility] Geraldo Cruz 726.19 Shoulder Disorders Kelsey Saab M.D. Other Spec Office Visit 02/21/2012 1:20p [facility] Geraldo Cruz 786.09 Dyspnea & Kelsey Saab M.D. Respiratory Abnormalities Other Office Visit 01/16/2012 2:30p [facility] C[facility] S. 332.0 Paralysis Agitans Neurologic Josue Alnaiz Services Of [facility] Office Visit 12/20/2011 10:00a [facility] Geraldo EPriti 780.79 Malaise And Fatigue Kelsey Saab M.D. Other 786.09 Dyspnea & Respiratory Abnormalities Other 600.20 Benign Localized Hyperplasia Prostate W/O Urinary Obstruct Office Visit 11/24/2011 11:15a [facility] SPriti 780.93 Memory Loss Services [facility] Josue Alaniz 780.79 Malaise And Fatigue Other Office Visit 11/22/2011 11:30a [facility] Nahun Holder 786.05 Shortflorecita Of Josue Clay Breath 794.31 Electrocardiogram (ECG) (EKG) Abnormal 780.79 Malaise And Fatigue Other Office Visit 11/01/2011 1:00p [facility] Geraldo Cruz 786.05 Shortness Of Medicine Josue Saab Breath 780.93 Memory Loss Office Visit 08/17/2011 1:40p [facility] Geraldo Cruz 786.09 Dyspnea & Kelsey Saab M.D. Respiratory Abnormalities Other Office Visit 07/17/2011 1:00p [facility] Geraldo EPriti 599.0 UTI Urinary Tract Kelsey Saab M.D. Infection Site Not Spec 790.21 Impaired Fasting Glucose Office Visit 07/07/2011 11:40a [facility] Geraldo EPriti 780.79 Malai And Kelsey Saab M.D. Fatigue Other 784.1 Throat Pain Office Visit 06/20/2011 10:40a [facility] Geraldo EPriti 780.79 Andrewai And Kelsey Saab M.D. Fatigue Other Office Visit 06/13/2011 1:40p [facility] Geraldo EPriti 780.79 Malaise And Kelsey Saab M.D. Fatigue Other Office Visit 04/19/2011 10:00a [facility] Geraldo Cruz 719.46 Pain Joint Lower Kelsey Saab M.D. Leg Office Visit 12/06/2010 10:00a DO Not Use Owner Spa Director [place] 601.1 Prostatitis AT Cuate Sparks M.D. Office Visit 11/24/2010 1:00p DO Not Use Owner Spa Director Geraldo EPriti V70.0 Examination AT Oli Saab M.D. General Medical Routine AT Health Care Facility 790.21 Impaired Fasting Glucose 477.9 Rhinitis Allergic Cause Unspec 723.1 Cervicalgia 600.20 Benign Localized Hyperplasia Prostate W/O Urinary Obstruct Office Visit 07/28/2010 4:00p DO Not Use Owner Spa Director Geraldo E. 726.19 Shoulder AT Oli Saab M.D. Disorders Other Spec 780.79 Malaise And Fatigue Other V03.82 Streptococcus Pneumoniae Vaccination Spec Other Office Visit 04/15/2010 9:20a DO Not Use Owner Spa Director Geraldo E. 465.9 URI Upper AT Oli Saab M.D. Respiratory Infections Acute Unspec Sites Office Visit 11/25/2009 3:40p DO Not Use Owner Spa Director Geraldo E. 604.90 Orchitis & AT Oli Saab M.D. Epididymitis Unspec Office Visit 09/09/2009 9:00a DO Not Use Owner Spa Director Geraldo E. V70.0 Examination General AT Oli Saab M.D. Medical Routine AT Health Care Facility 790.21 Impaired Fasting Glucose 600.20 Benign Localized Hyperplasia Prostate W/O Urinary Obstruct Office Visit 05/31/2009 3:20p DO Not Use Owner Spa Director Geraldo E. 300.02 Anxiety Disorder AT Oli Saab M.D. Generalized 796.2 Blood Pressure Reading Elevated W/O Hypertension Office Visit 05/03/2009 2:40p DO Not Use Owner Spa Director Geraldo E. 465.9 URI Upper AT Oli Saab M.D. Respiratory Infections Acute Unspec Sites 780.79 Malaise And Fatigue Other Office Visit 12/17/2008 11:15a DO Not Use Owner Spa Director Geraldo E. 465.9 URI Upper AT Oli Saab M.D. Respiratory Infections Acute Unspec Sites Office Visit 09/07/2008 9:00a [facility] Geraldo E. V05.8 Single Disease AT Bry Saab M.D. Spec Other [place] Vaccination & Inoculation V70.0 Examination General Medical Routine AT Health Care Facility 602.9 Prostate Disorder Unspec Office Visit 12/20/2007 10:15a [facility] Grealdo E. 465.9 URI Upper Assoc AT Josue Saab Respiratory [facility] [place] Infections Acute Unspec Sites Office Visit 11/27/2007 10:30a [facility] Geraldo E. 723.1 [facility]ervicalgia [facility]oc [facility] [place] 780.[facility] Insomnia Unspecified Office Visit 09/05/2007 9:30a [facility] AT [facility]24[facility]2 [facility] Prostate Disorder Unspec 477.9 Rhinitis Allergic Cause Unspec V70.0 Examination General Medical Routine AT Health Care Facility Office Visit 06/20/2007 3:15p [facility] Anthony 465.9 URI Upper Assoc AT KatianaJosue key Respiratory [facility] Infections Acute Unspec Sites Office [facility]/29[facility]2007 [facility]2 [facility] Assoc AT KatianaJosue [facility] Plan of Treatment Future Appointment(s):07/12/2018 3:00 pm - Danny Mir MD at Orthopedic [facility]10/22/2018 2:15 pm - Shira Loredo DNP, RN, CUSTOMER CARE AGENT-BC at [facility]07/10/2018 - Nahun Clay M.D.G20 Parkinson's [id number] Repeated smywbP46.1 Orthostatic pdnmmecrloxA96.5 Sick sinus syndrome
--- NOTE | 2018-08-08 16:39 | ED ---
Adult Trauma - HPI Summary HPI Summary: This patient is a 73 year old M presenting to ED with a chief complaint of a witnessed fall by . She reports after falling associated with a head injury to the back of the head against the kitchen counter and the right side of his face, he had a glassy look in his eyes but he didnt lose consciousness. The patient reports that prior to the fall, he would lose his balance. He usually holds onto his in order to get around. The patient rates the pain 0/10 in severity. Symptoms aggravated by nothing. Symptoms alleviated by nothing. Patient reports tachypnea, dizziness prior to todays fall (per the ), a line of pain going up the chest (not prior to fall but rather an episode 2 years ago), an abrasion to the R faith area, and the also says that hes been acting a little out of it. reports no recent changes to his medications. PMHx of Parkinsons Disease. Spoke with Yury Dowd on the phone earlier about this patient prior to patients arrival. He reported LOC and frequent falls in the setting of Parkinsons Disease. - History of Current Complaint Chief Complaint: EDFall Stated Complaint: POSS CONCUSSION PER PT Time Seen by Provider: 08/08/18 15:46 Hx Obtained From: Patient, Family/Marketing Sales Representative - accompanied by Mechanism of Injury: Fall Loss of Consciousness: no loss of consciousness Onset/Duration: Started Hours Ago, Resolved Current Severity: None Pain Intensity: 0 Pain Scale Used: 0-10 Numeric Location: Head - abrasion to R faith area Aggravating Factor(s): Nothing Alleviating Factor(s): Nothing Associated Signs & Symptoms: Positive: Other: - tachypnea, loss of balance, dizziness prior to todays fall (per the ), an abrasion to the R faith area. Negative: Loss of Consciousness - Allergy/Home Medications Allergies/Adverse Reactions: Allergies Allergy/AdvReac Type Severity Reaction Status Date / Time ciprofloxacin [From Cipro] Allergy Unknown Verified 08/08/18 13:41 Reaction Details clopidogrel [From Plavix] Allergy Unknown Verified 08/08/18 13:41 Reaction Details minocycline Allergy Hives Verified 08/08/18 13:41 PMH/Surg Hx/FS Hx/Imm Hx Endocrine/Hematology History: Denies: Hx Diabetes, Hx Thyroid Disease Cardiovascular History: Reports: Hx Hypertension, Other Cardiovascular Problems/ Disorders - ISCHEMIC CVA Denies: Hx Angina, Hx Coronary Artery Disease, Hx Hypercholesterolemia, Hx Myocardial Infarction, Hx Valvular Heart Disease Respiratory History: Reports: Hx Sleep Apnea - current BiPAP user, compliant, Other Respiratory Problems/Disorders - SLEEP APNEA Denies: Hx Asthma, Hx Chronic Obstructive Pulmonary Disease (COPD) GI History: Reports: Other GI Disorders - FEELS FULL QUICKLY Denies: Hx Ulcer History: Reports: Hx Benign Prostatic Hyperplasia Musculoskeletal History: Reports: Hx Back Problems Denies: Other Musculoskeletal History Sensory History: Reports: Hx Contacts or Glasses - GLASSES, Hx Glaucoma - SUSPECT, Hx Hearing Aid - [facility] Opthamlomology History: Reports: Hx Contacts or Glasses - GLASSES, Hx Glaucoma - SUSPECT Neurological History: Reports: Hx Headaches, Hx Nerve Disease - EARLY PARKINSONS , 2011 Denies: Other Neuro Impairments/Disorders - Cancer History Cancer Type, Location and Year: BASAL CELL - Surgical History Surgery Procedure, Year, and Place: T/A A CHILD, 1951, [facility]. 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 WISDOM TEETH 1971,. basal cell FACE AND BACK SEVERAL TIMES IN PAST 10-15 YRS,. hernia repair inguinal + umbilical. Deep Brain Stimulation electrodes in place + pacer Hx Anesthesia Reactions: No Infectious Disease History: No Infectious Disease History: Denies: Hx Clostridium Difficile, Hx Hepatitis, Hx Human Immunodeficiency Virus (HIV), Hx of Known/Suspected MRSA, Hx Shingles, Hx Tuberculosis, Hx Known/ Suspected VRE, Hx Known/Suspected VRSA, History Other Infectious Disease, Traveled Outside the in Last 30 Days - Family History Known Family History: Positive: Hypertension Negative: Diabetes - Social History Alcohol Use: Occasionally Alcohol Amount: 2 glasses wine 4 days/week Hx Substance Use: No Substance Use Type: Reports: None Hx Tobacco Use: Yes Smoking Status (MU): Former Smoker Type: Pipe Amount Used/How Often: PIPE Have You Smoked in the Last Year: No Review of Systems Negative: Fever, Chills Negative: Erythema Negative: Sore Throat Positive: Chest Pain - a line of pain going up the chest (not prior to fall but rather an episode 2 years ago) Positive: Other - tachypnea. Negative: Shortness Of Breath, Cough Negative: Abdominal Pain, Vomiting, Nausea Negative: dysuria, hematuria Positive: Other - fall witnessed by . Negative: Myalgia, Edema Positive: Other - abrasion to the R faith area. Negative: Rash Neurological: Other - dizziness prior to today's fall (per the ), he's been acting a little out of it All Other Systems Reviewed And Are Negative: Yes Physical Exam - Summary Physical Exam Summary: Constitutional: Well-developed, Well-nourished, Alert. (-) Distressed Skin: Warm, Dry. Stellate laceration over the R faith, 0.5 cm in length. HENT: Normocephalic; Atraumatic Eyes: Conjunctiva normal Neck: Musculoskeletal ROM normal neck. (-) JVD, (-) Stridor, (-) Tracheal deviation Cardio: Rhythm regular, rate normal, Heart sounds normal; Intact distal pulses; The pedal pulses are 2+ and symmetric. Radial pulses are 2+ and symmetric. (-) Murmur Pulmonary/Chest wall: Effort normal. (-) Respiratory distress, (-) Wheezes, (-) Rales Abd: Soft. (-) Tenderness, (-) Distension, (-) Guarding, (-) Rebound Musculoskeletal: (-) Edema Lymph: (-) Cervical adenopathy Neuro: Alert, Oriented x3, Strength normal, Cranial nerves II-XII are grossly intact. (-) Dysmetria, (-) Nystagmus, (-) Ataxia by finger to nose testing, (-) Sensory deficit. GCS: 15 Psych: Mood and affect Normal Triage Information Reviewed: Yes Vital Signs On Initial Exam: Initial Vitals Temp Pulse Resp BP Pulse Ox 98.0 F 64 12 92/65 97 08/08/18 13:38 08/08/18 13:38 08/08/18 13:38 08/08/18 13:38 08/08/18 13:38 Vital Signs Reviewed: Yes Procedures - Laceration/Wound Repair 1 Location: face Description: Linear Length, Depth and Shape: Stellate laceration over the R faith, 0.5 cm in length. Laceration was glued. Laceration/Wound Explored: clean Diagnostics - Vital Signs Vital Signs Temp Pulse Resp BP Pulse Ox 08/08/18 15:05 98.1 F 70 18 94/64 100 08/08/18 13:38 98.0 F 64 12 92/65 97 - Laboratory Result Diagrams: 08/08/18 16:34 08/08/18 16:34 Lab Statement: Any lab studies that have been ordered have been reviewed, and results considered in the medical decision making process. - Radiology CXR Radiology Interpretation Completed By: ED Physician Summary of Radiographic Findings: Wide mediastinum, lungs clear. Pending radiologist official report. - CT Brain CT CT Interpretation Completed By: Radiologist Summary of CT Findings: NO ACUTE INTRACRANIAL PATHOLOGY. STATUS POST BILATERAL DEEP BRAIN STIMULATOR LEAD PLACEMENT. Dr. Ramírez has reviewed this radiology report. - EKG 1620 Cardiac Rate: NL - 60 BPM EKG Rhythm: Sinus Rhythm Summary of EKG Findings: No STEMI Adult Trauma Course/Dx - Course Assessment/Plan: This patient is a 73 year old M presenting to ED with a chief complaint of a witnessed fall by . Laceration on the R faith was glued. EKG reveals NSR at 60 BPM and no STEMI. Brain CT reveals NO ACUTE INTRACRANIAL PATHOLOGY. STATUS POST BILATERAL DEEP BRAIN STIMULATOR LEAD PLACEMENT. CXR reveals wide mediastinum, lungs clear. Consulted Dr. Morton at 1915 and she accepts the patient for admission. This patient will be admitted with dx of syncope. Patient understands and agrees with this plan. - Diagnoses Differential Diagnosis/HQI/PQRI: Positive: Other - syncope Provider Diagnoses: Syncope - Physician Notifications Discussed Care Of Patient With: Sarita Morton Time Discussed With Above Provider: 19:15 Instructed by Provider To: Admit As Inpatient Discharge - Sign-Out/Discharge Documenting (check all that apply): Patient Departure - admit Patient Received Moderate/Deep Sedation with Procedure: No - Discharge Plan Condition: Stable Disposition: ADMITTED TO [facility] Referrals: Geraldo Saab MD [Primary Care Provider] - - Attestation Statements Document Initiated by Scribe: Yes Documenting Scribe: Nando Faulkner Provider For Whom Scribe is Documenting (Include Credential): Mukund Ramírez MD Scribe Attestation: Nando Rojas, scribed for Mukund Ramírez MD on 08/08/18 at 1926. Status of Scribe Document: Ready
[2018-08-08 16:41] LABS: ABS Basophils 0.1 10^3/ul (0-0.2); ABS Lymphocytes 1.4 10^3/ul (1.0-4.8); ABS Monocytes 0.7 10^3/ul (0-0.8); ABS Neutrophils 3.6 10^3/ul (1.5-7.7); Eosinophil % 0.9 %; Hematocrit 41 % (42-52); Hemoglobin 13.6 g/dL (14.0-18.0); Lymphocyte % 24.7 %; Mean Corpuscular HGB Conc 33 g/dL (31-36); Mean Corpuscular Hemoglobin 33 pg (27-31); Mean Corpuscular Volume 98 fL (80-94); Mean Platelet Volume 8.5 fL (7.4-10.4); Platelet Count 186 10^3/uL (150-450); Red Blood Count 4.16 10^6 /uL (4.18-5.48); Red Cell Distribution Width 13 % (10.5-15); White Blood Count 5.8 10^3/uL (3.5-10.8)
[2018-08-08 17:12] LABS: ALT < 3 U/L (7-52); AST 11 U/L (13-39); Albumin/Globulin Ratio 1.9 (1-3); Alkaline Phosphatase 99 U/L (34-104); Anion Gap 5 mmol/L (2-11); BUN/Creatinine Ratio 24.1 (8-20); Blood Urea Nitrogen 20 mg/dL (6-24); CO2 Carbon Dioxide 29 mmol/L (22-32); Calcium 9.4 mg/dL (8.6-10.3); Chloride 104 mmol/L (101-111); EGFR African American 109.9 (>60); EGFR Non-African American 90.8 (>60); Globulin 2.1 g/dL (2-4); Glucose 110 mg/dL (70-100); Potassium 4.5 mmol/L (3.5-5.0); Sodium 138 mmol/L (135-145); Total Protein 6.1 g/dL (6.4-8.9)
[2018-08-08 17:30] LABS: TSH (Thyroid Stimulating Horm) 1.16 mcIU/mL (0.34-5.60)
[2018-08-08] MEDS ORDERED: NS 0.9% 1000 ML** 1,000 ML IV ONE (17:55)
[2018-08-08] MEDS ORDERED: Acetaminophen TAB* 325 MG PO PRN (20:15)
[2018-08-08] MEDS ORDERED: Magnesium Hydroxide LIQ* 30 ML UDC PO PRN (20:15)
[2018-08-08] MEDS ORDERED: hydrALAZINE IV* 20 MG/ML VIAL IV SLOW PU PRN (20:19)
[2018-08-08] MEDS ORDERED: Carbidopa/Levodop CR 50/200(*) TAB.CR PO SCH (21:00)
--- NOTE | 2018-08-08 21:20 | HP ---
HISTORY AND PHYSICAL: ADDENDUM: In regards to the patient's obstructive sleep apnea, he had not been tolerating the use of a CPAP machine due to his Parkinson's and his akinesias. At this point, we are going to obtain overnight pulse oximetry with recording to possibly qualify the patient for oxygen at night. [id number] #: [id number] MTDD
--- NOTE | 2018-08-08 22:36 | HP ---
CC: Dr. Saab; Dr. Thomas; Dr. Snider * HISTORY AND PHYSICAL: DATE OF ADMISSION: 08/08/18 PRIMARY CARE PROVIDER: Dr. Saab. NEUROLOGIST: Dr. Thomas. CHIEF COMPLAINT: Falls. HISTORY OF PRESENT ILLNESS: Mr. Wallis is a 73-year-old male with advanced Parkinson's who had history of status post brain stimulator implantation in 2015. He has had problems with orthostatic hypotension and falls for over a year that had gotten more pronounced in the past several months. Today, he was seen by Dr. Thomas. In the morning, he had another episode when he stood up and he felt lightheaded and he fell down hitting his head. Dr. Thomas directed him to the hospital for evaluation and possible observation and further management of his orthostatic hypotension. PAST MEDICAL HISTORY: 1. History of Parkinson's status post brain stimulator implantation in January 2016. 2. History of orthostatic hypotension. 3. History of obstructive sleep apnea, not on CPAP for the past year and a half. 4. History of carotid disease. 5. Hypercholesterolemia. 6. Impaired fasting glucose. 7. Allergic rhinitis. 8. History of bilateral inguinal hernia repair and umbilical hernia repair. MEDICATIONS: At home include: 1. Sinemet 50/200 3 tablets 4 times a day. 2. Flomax 0.4 mg daily. 3. Rasagiline 1 mg daily. 4. MiraLAX 17 g daily p.r.n. 5. Melatonin 5 mg at bedtime p.r.n. 6. Magnesium oxide 250 mg b.i.d. 7. Glucosamine 1 capsule daily. 8. Flaxseed oil 1000 mg b.i.d. 9. Proscar 5 mg daily. 10. Famotidine 40 mg daily. 11. Fluoxetine 20 mg daily. ALLERGIES: CIPROFLOXACIN, PLAVIX, and MINOCYCLINE. FAMILY HISTORY: Positive for father who of a heart attack at the age of 63 , and mother who of CVA at the age of 74. SOCIAL HISTORY: The patient is and his is his healthcare proxy. He is retired. He has history of smoking pipe and he quit in 1982. He drinks an occasional glass of wine up to 4 glasses a day. He denies any drug use. He ambulates with a rolling walker. REVIEW OF SYSTEMS: Please see history of present illness. Positive for orthostatic hypotension to the point that every time the patient stands up, he gets dizzy and lightheaded. He falls almost on a daily basis. Today, he hit his head when he fell. He denies losing consciousness. As per evaluation at Dr. Thomas's office, the patient's systolic pressures were in the 180s when he was in the sitting position and it went down to 90s systolically when standing up. The patient has had problems with unsteady gait due to Parkinson's. He sleeps rather well. He denies any chest pain or shortness of breath. He has had no GI symptoms. The patient's noted problems with memory recently. Apparently, he gets better in the evening, but he occasionally gets confused in the mornings. All the remaining 12 systems were reviewed with the patient and were otherwise negative. PHYSICAL EXAMINATION GENERAL: The patient is a pleasant 73-year-old male, who is in no acute distress. Alert, awake, and oriented x3. The patient is a rather poor historian. VITAL SIGNS: Blood pressure of 171/102, heart rate of 69 and regular, respiratory rate 26, oxygen saturation 97% on room air, temperature of 98.1. HEENT: Head: Atraumatic, normocephalic. Eyes: Pupils are equal, reactive to light and accommodation. Oropharynx clear. Mucosa moist. NECK: Supple. No JVD, no bruits bilaterally. RESPIRATORY: Clear to auscultation bilaterally. CARDIOVASCULAR: Regular rate and rhythm. No murmur. ABDOMEN: Soft, nontender. Bowel sounds are present in all 4 quadrants. EXTREMITIES: There is no edema. Pulses are +2 bilaterally. No clubbing or cyanosis. NEUROLOGIC: On neuro evaluation, the patient has notable akathisia during the evaluation. I did not notice that much of resting tremor and no cogwheel rigidity. Otherwise, his neurologic evaluation is nonfocal. Speech is clear. Motor strength is 5/5 bilaterally in both the upper and lower extremities. Gait was not evaluated. PSYCHIATRIC: Pleasant and cooperative with evaluation, rather forgetful with no evidence of anxiety or depression. DIAGNOSTIC STUDIES/LAB DATA: White blood cell count of 5.8, hemoglobin of 13.6 , hematocrit of 41, platelets of 186,000. Sodium was 138, potassium 4.5, chloride 104, carbon dioxide 29, BUN 20, creatinine 0.83. Liver function tests unremarkable. TSH of 1.16. The patient's EKG, right bundle-branch block with heart rate of 60 beats per minute. The patient's brain CT, impression: "No acute intracranial pathology. Status post bilateral deep brain stimulator lead placement." Portable chest x-ray reviewed by myself prior to the official radiologist's report showed no evidence of acute cardiopulmonary abnormalities. ASSESSMENT AND PLAN: Mr. Wallis is a 73-year-old male with a history of Parkinson' s with problems with orthostatic hypotension. Unfortunately, the patient is very hypertensive when lying down or sitting up. At this point, midodrine or fludrocortisone would not be recommended since it would increase the patient's baseline supine hypertension. I briefly discussed the case with Dr. Snider. At this point, the patient is going to be placed on overnight observation on telemetry monitored bed. A transthoracic echocardiogram is going to be performed to rule out secondary problems/cardiogenic problems for the orthostatic hypotension. We will place hydralazine IV on as needed basis for systolic pressures of above 180. We will continue to allow hypertension with systolics in the 180s. I will ask physical therapy, occupational therapy to see the patient in evaluation. Neurology will follow up with the patient in the morning. For the patient's Parkinson's, we will continue the patient's Sinemet and rasagiline at the current dose. For DVT prophylaxis, the patient is going to be placed on heparin subcutaneously. For the patient's history of benign prostatic hyperplasia, Flomax as prescribed is going to be continued. The patient's code status is full code. We discussed DNR. The patient is considering that, but for the time being, he is going to be a full code and his healthcare proxy is his . TIME SPENT: Approximately 72 minutes were spent on admission of this patient, more than half of that time was spent [id number] with the patient during the interview and physical exam. ADDENDUM: In regards to the patient's obstructive sleep apnea, he had not been tolerating the use of a CPAP machine due to his Parkinson's and his akinesias. At this point, we are going to obtain overnight pulse oximetry with recording to possibly qualify the patient for oxygen at night. [id number]/CPS #: [id number] #: [id number] [facility] SYSTEMVinita
[2018-08-08] MEDS ORDERED: CARBIDOPA LEVODOPA PO SCH (23:30)
[2018-08-08] MEDS: Famotidine TAB* 20 MG PO SCH (23:44)
[2018-08-08] MEDS: Docusate CAP* 100 MG PO SCH (23:44)
[2018-08-08] MEDS: CARBIDOPA LEVODOPA PO SCH (23:45)
[2018-08-08] MEDS: MELATONIN 5 MG PO PRN (23:45)
[2018-08-08] MEDS ORDERED: [UNRECOGNIZED DRUG - OTHER] BOTH EYES PRN (23:46)
[2018-08-08] MEDS: Heparin VIAL(*) 5000 UNITS/ML VIAL (FIVE THOUSAND) SUBCUT SCH (23:46)
[2018-08-09 03:02] LABS: Urine Appearance Clear; Urine Bilirubin Negative (Negative); Urine Blood Negative (Negative); Urine Color Straw; Urine Glucose Negative (Negative); Urine Ketones Negative (Negative); Urine Nitrite Negative (Negative); Urine Protein Negative (Negative); Urine Specific Gravity 1.008 (1.010-1.030); Urine Urobilinogen Negative (Negative)
[2018-08-09] MEDS: Heparin VIAL(*) 5000 UNITS/ML VIAL (FIVE THOUSAND) SUBCUT SCH ×3 (05:23→21:28)
[2018-08-09] MEDS: CARBIDOPA LEVODOPA PO SCH ×4 (05:23→17:47)
[2018-08-09 05:50] LABS: ABS Basophils 0.1 10^3/ul (0-0.2); ABS Eosinophils 0.1 10^3/ul (0-0.6); ABS Lymphocytes 1.4 10^3/ul (1.0-4.8); ABS Monocytes 0.5 10^3/ul (0-0.8); ABS Neutrophils 2.8 10^3/ul (1.5-7.7); Eosinophil % 1.2 %; Hematocrit 40 % (42-52); Hemoglobin 13.6 g/dL (14.0-18.0); Lymphocyte % 28.7 %; Mean Corpuscular HGB Conc 34 g/dL (31-36); Mean Corpuscular Hemoglobin 33 pg (27-31); Mean Corpuscular Volume 98 fL (80-94); Platelet Count 180 10^3/uL (150-450); Red Blood Count 4.11 10^6 /uL (4.18-5.48); Red Cell Distribution Width 13 % (10.5-15); White Blood Count 4.8 10^3/uL (3.5-10.8)
[2018-08-09 06:17] LABS: BUN/Creatinine Ratio 21.2 (8-20); Calcium 8.8 mg/dL (8.6-10.3); EGFR African American 143.2 (>60); EGFR Non-African American 118.3 (>60)
[2018-08-09 08:33] LABS: Folate 15.27 ng/mL (>3.99)
[2018-08-09] MEDS ORDERED: Cyanocobalamin INJ * 1,000 MCG/ML VIAL 1 ML VIAL IM ONE (09:00)
[2018-08-09] MEDS ORDERED: RASAGILINE 1 MG PO SCH (09:00)
[2018-08-09] MEDS: Cyanocobalamin TAB* 500 MCG PO SCH (10:16)
[2018-08-09] MEDS: FLUoxetine CAP* 20 MG PO SCH (10:16)
[2018-08-09] MEDS: Docusate CAP* 100 MG PO SCH ×2 (10:16→21:27)
[2018-08-09] MEDS: Polyethylene Glycol 3350* 17 GM PACKET PO SCH (10:17)
--- NOTE | 2018-08-09 12:55 | ECHO ---
*[facility]* [place] [address] Fax #: [phone] Transthoracic Echocardiogram Patient: Chris Wallis Height: 70 in / T 177.8 cm : 1945 Weight: 174.6 lb / Study Date: 08/09/2018 79.4 kg Age: 73 BP: 141 / 85 Gender: M BMI/BSA: 25.1 kg/m^2 HR: 65 bpm / 1.97 m^2 *Igniter Assembler: * Eugenie Lawrence [facility] *Referring Physician: Sarita Mcleod *Reading Physician: Collins Looney MD Indications: Hypotension-Orthostatic. History: Advanced Parkinson's, s/p brain stimulator implant,NICKI without CPAP,PAD,HLD,former pipe smoker. Hypotension. Conclusions Summary: 1. Left ventricle: The cavity size is normal. Wall thickness is mildly increased. Systolic function is vigorous. The estimated ejection fraction is 65-70%. Wall motion is normal; there are no regional wall motion abnormalities. 2. Right ventricle: The cavity size is normal. Systolic function is normal. Systolic pressure is within the normal range. 3. Left atrium: The atrium is normal in size. 4. Aortic arch: Aortic root mildly dilated. 5. No signficant valvular abnormalities noted. Recommendations: Compared to prior study from 06/2017, no clinically significant changes noted. Study data: Transthoracic echocardiogram. Procedure: Transthoracic echocardiography was performed. Image quality was good. Complete 2D, spectral Doppler, and color flow Doppler. Patient status: Inpatient. Patient room number: 447-1. Rhythm: Normal sinus rhythm. Findings Left ventricle: The cavity size is normal. Wall thickness is mildly increased. Systolic function is vigorous. The estimated ejection fraction is 65-70%. Wall motion is normal; there are no regional wall motion abnormalities. There is no consistent Doppler evidence of clinically significant diastolic dysfunction. Right ventricle: Well visualized. The cavity size is normal. Systolic function is normal. Systolic pressure is within the normal range. Left atrium: The atrium is normal in size. Right atrium: The atrium is normal in size. Atrial septum: Well visualized. Mitral valve: Well visualized. The leaflets are mildly thickened. There is no evidence of stenosis. There is mild regurgitation. Aortic valve: Well visualized. The valve is trileaflet. The leaflets are normal thickness. There is no evidence of stenosis. There is no significant regurgitation. Tricuspid valve: Well visualized. The leaflets are normal thickness. There is no evidence of stenosis. There is physiologic regurgitation. Pulmonic valve: Well visualized. The leaflets are normal thickness. There is no evidence of stenosis. There is trivial regurgitation. Aorta: The aorta is well visualized. Aortic arch: The aortic arch is appears normal. Aortic root mildly dilated. Pericardium: There is no pericardial effusion. No evidence of pleural fluid accumulation. Pulmonary arteries: Well visualized. Systemic veins: Not well visualized. Measurements Left ventricle Value Ref Right atrium continued Value Ref SHELLI, LAX 5.3 cm 4.2 - SI dim, ES 4.8 cm 3.4 - 5.8 5.3 ESD, LAX 2.6 cm 2.5 - ML dim, ES, A4C 2.7 cm 2.6 - 4.0 4.4 FS, LAX (H) 52 % 25 43 SI dim, ES, A4C 4.8 cm 3.4 - PW, ED, LAX 1.0 cm 0.6 - 5.3 1.0 FS (H) 52 % 25 43 Aortic valve Value Ref Mid-wall FS 23 % -------- Anny diam, ED 2.4 cm ------- PW, ED (H) 1.1 cm 0.6 - Anny diam/bsa, ED 1.2 cm/m^2 ------- 1.0 Peak v, S 1.43 m/sec ------- PW/ID, ED 0.21 -------- VTI, S 27.7 cm ------- E', lat anny, TDI (L) 7.3 cm/sec >=10.0 Mean grad, S 4.0 mm Hg ------- E/e', lat anny, TDI 7 -------- Peak grad, S 8.0 mm Hg -- ----- E', med anny, TDI 7.3 cm/sec >=7.0 LVOT/AV, VTI ratio 0.74 ------- E/e', med anny, TDI 7 -------- E', avg, TDI 7.3 cm/sec -------- Mitral valve Value Re f E/e', avg, TDI 7 <=14 Peak E 0.51 m/sec ------- Peak A 0.62 m/sec ------- LVOT Value Ref Decel time 268 ms ------- Peak alon, S 1.02 m/sec -------- Peak E/A ratio 0.8 ------- VTI, S 20.6 cm -------- Mean grad, S 1 mm Hg -------- Pulmonic valve Value Ref Peak v, S 0.73 m/sec ------- Ventricular septum Value Ref Peak grad, S 2.0 mm Hg ------- IVS, ED 0.8 cm 0.6 - 1.0 Tricuspid valve Value Ref TR peak v 2.15 m/sec <=2. 8 Right ventricle Value Ref Peak RV-RA grad, S 19 mm Hg ------- SHELLI, LAX 3.9 cm -------- Max TR alon 2.15 m/sec ------- SHELLI minor ax, A4C 2.4 cm 1.9 - mid 3.5 Aortic root Value Ref Root diam (H) 4.1 cm <4.1 Left atrium Value Ref ML dim, A4C 3.2 cm -------- Aortic arch Value Ref SI dim, A4C 4.7 cm -------- Arch diam 2.0 cm ------- Vol/bsa, ES, 1-p 14 ml/m^2 12 - 37 A4C Decending aorta Value Ref Vol/bsa, ES, A/L 22 ml/m^2 16 - 34 Jaron peak alon 0.63 m/sec ------- Right atrium Value Ref RA ID, major 4.8 cm -------- RA ID, minor 2.7 cm -------- Legend: (L) and (H) blaze values outside specified reference range. Prepared and electronically signed by Collins Knox MD 08/09/2018 12:55
--- NOTE | 2018-08-09 15:44 | CONS ---
NEUROLOGY CONSULTATION REPORT: DATE OF CONSULT: 08/09/18 CONSULTING PROVIDER: I was contacted by Dr. Drew Thomas who informed me that the patient will be heading to the ER on 08/08/18 for evaluation of falls. I was then consulted by Dr. Morton. REASON FOR CONSULT: Orthostatic hypotension and fall. CHIEF COMPLAINT: Constant abnormal movements and recurrent falls. HISTORY OF PRESENT ILLNESS: Mr. 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 He is status post implantation of deep brain stimulator in January 2017. Prior to the DBS the patient complained of significant motor symptoms that consisted of tremors, bradykinesia, and inability to feed himself. Following the DBS the patient is now able to feed himself and perform many every day tasks that he was unable to do. In the summer of 2017, Mr. Wallis started falling at least once a week. He stated that he falls forward on to his face. He stated, "my legs can't keep up with my intention of where I need to get." He frequently hits his head and loses awareness for a short of period of time. If his is around, he can hold on to her for 10 to 15 seconds and he can prevent a fall. Over the past 3 months Mr. Wallis has averaged 3 falls a weak. His last fall was on Sunday08/07/18. He stood up from the bench after having a meal and began walking towards the nearby living room. He can see that the door knob is a few steps away but then suddenly he fell forward. Most of his falls occur after standing. He did complain of preceding symptoms of palpitation and lightheadedness 5 to 10 seconds prior to the fall. He did bang his head on the concrete floor. He is not sure if he completely passed out , but he does not recall falling. He immediately wakes up and usually complains of head pain following the fall. He denied any seizure like activity. He denied ever having impairment in his bowel or bladder function after the fall. He is aware that his blood pressure usually significantly drops prior to the fall. He was seen by Dr. Thomas on 08/08/18. I reviewed the records in [facility]. According to Ms. Wallis, the patient has been experiencing increasing confusion. I was unable to meet Ms. Wallis today, but according to Dr. Thomas's note, the patient has also trouble with freezing. He seems to have episodes of freezing 3 to 4 hours after his Sinemet dose. He is currently taking Sinemet 25/100 Extended release 3 tablets 4 times a day for a total levodopa dose of 1200 mg a day. According to Dr. Thomas's note on 06/25/18, there was a recent increase in his Sinemet dose from 3 times a day to 4 times a day that took place around May 2018. The patient also has many other complaints related to his Parkinson's disease. For instance, he complains of having increasing memory problems. He states that he loads his pill boxes but sometimes finds extra pills laying around or not enough pills to take. He is not sure if he can continue refilling the pill box and remembering to take the medications regularly. He also complaints of visual and auditory hallucinations. He hears sounds outside the window upstairs in his bedroom. He finds it slightly disturbing that these sounds are just outside his window and his does not hear them. He also recently saw a small mouse around the house that snuck right outside the garage door. His was right next to him when he saw this mouse and he is not sure if it is actually real. He stated that his would have seen it if it was a real object. He did not want to tell her about this because then she would not go into the garage again. He is also be noticing a blue and gold foil color that he sees in boards, pictures, and his neighbors roof. When questioned if these objects are real, he stated that they cannot be real because he knows his neighbors roof is not that color. Lastly, the patient does have to climb the stairs to go into his bedroom. He has approximately 15 to 18 steps to go upstairs. He had fallen 3 months ago off the stairs injuring his head. The patient also complains of increased anxiety, depression, constipation, and fatigue. He denied any focal weakness or paresthesias. He occasionally has numbness in the feet. He denied any chest pain, shortness of breath or palpitations. His main concerns are the abnormal movements and the frequent falls, and his goal of care is to hopefully find a treatment to reduce the movements and prevent any future falls. The patient had a brain CT head without contrast completed on 08/08/18. I personally reviewed the images. There is no acute intracranial pathology. He is status post bilateral deep brain stimulator lead placement. The patient denied any neck or low back pain. PAST MEDICAL HISTORY: 1. Parkinson's disease, status post DBS. 2. History of orthostatic hypotension. 3. Obstructive sleep apnea. 4. Carotid disease. 5. Dyslipidemia. 6. Impaired fasting glucose. 7. Allergic rhinitis. 8. Benign prostatic hypertrophy. 9. Bilateral inguinal hernia repair and umbilical hernia repair. HOME MEDICATIONS: 1. Azilect 1 mg by mouth daily. 2. Famotidine 40 mg to take 1 tablet by mouth once daily. 3. Finasteride 5 mg once daily. 4. Flaxseed oil 1000 mg p.o. twice per day. 5. Glucosamine chondroitin 1500 complex maximum strength. 6. Magnesium 250 mg twice daily. 7. Melatonin 5 mg at bedtime. 8. MiraLAX 17g by mouth twice a day as needed. 9. Prozac 20 mg to take 1 capsule by mouth once daily. 10. Sinemet CR 25/100 mg 3 tablets by mouth 4 times a day. 11. Tamsulosin 0.4 mg 1 p.o. daily. ALLERGIES: CIPROFLOXACIN, PLAVIX, AND MINOCYCLINE. FAMILY HISTORY: His father suffered from a heart attack and mother had a stroke. SOCIAL HISTORY: The patient is and lives with his . 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 He has a history of smoking prior, then he quit 1982. He does consume alcohol approximately 1 to 4 glasses of wine a day. He denies any drug use. He ambulates with a rolling walker. REVIEW OF SYSTEMS: A 14-point review of system was obtained and otherwise negative except for what is mentioned in the HPI. PHYSICAL EXAMINATION: Vitals: Temperature of 97.8, heart rate of 62, respiratory rate of 18, oxygen saturation 94%, blood pressure 147/92. General: Frail, ill- appearing, elderly man who appears older than stated age in no significant distress. Head: Normocephalic and atraumatic. Eyes: Conjunctivae /corneas are clear. Neck is supple and symmetrical. No carotid bruits. No lymphadenopathy. Lungs are clear to auscultation bilaterally, nonlabored breathing. Cardiovascular: Regular rate and rhythm with normal S1 and S2. Extremities: Normal range of motion with no cyanosis. Skin: No skin lesions or lacerations. Psych: Flat affect and slightly reduced mood but easy to establish a rapport with. He denied any suicidal or homicidal ideation. Neurological: Mental status, he is awake, alert and oriented to person, place, time, and general circumstances. He has hypophonia and bradykinesia but otherwise language including expression, naming, repetition, and comprehension were assessed and found to be normal. Cranial Nerves: Normal confrontation testing bilaterally. Pupils are mid range and reactive to light. Sensation intact on the forehead, cheeks and jaw lesions bilaterally. No facial droop. He is able to hear throughout the history process. Symmetrical palatal elevation. Normal strength against resistant. Tongue is symmetrical and midline with no atrophy or fasciculation. Extrapyramidal motor exam: Dyskinesia of the neck and proximal upper extremities bilaterally. No cogwheel rigidity. Mild bradykinesia to finger-to- nose particularly. Motor Examination: No pronator drift. No tremors. No fasciculation. He has 5/5 strength in upper and lower extremities bilaterally. Reflexes right/left, brachioradialis 1/1, biceps 1/1, triceps 1/1, patella 1/1, ankle 0/0 plantar flexes/flexor. Sensation is intact to light touch and temperature throughout. He has a significant reduced vibration to 3 seconds on the right and 5 seconds on the left. Intact proprioception at the great toes. Coordination: Slow but normal [id number] movements bilaterally. Gait: Did not assess due to the severe orthostasis. Orthostatic vitals were obtained at bed side. The patient had supine blood pressure at 10:09 of 129/80 with a pulse of 74, and a blood pressure that was rechecked again at 10:12 with a blood pressure of 101/59 and pulse of 83. We did not do standing given the positive response from flat to sitting. ASSESSMENT: Mr. Chris Wallis is a 73-year-old man with history of Parkinson's disease, status post DBS who presents with frequent falls due to orthostatic hypotension. 1. Orthostatic hypotension in Parkinson's disease. 2. Supine hypertension, orthostatic hypotension. 3. Levodopa induced dyskinesia. 4. Parkinson's disease with mild cognitive impairment. 5. Parkinson's disease with psychosis. 6. Vitamin B12 deficiency. 7. Benign prostatic hypertrophy on tamsulosin. 8. Alcohol use. RECOMMENDATIONS: This is a complicated case. The patient unfortunately has autonomic dysfunction related to his Parkinson's disease as well as other factors such as Levodopa and dopamine medications induced orthostasis, which is likely to be exacerbated by tamsulosin use. Given that these falls have increased since the increase in levodopa in May 2018, I recommend reducing the Sinemet to home Sinemet CR of 25/100 mg to take 2 tablets 4 times a day. We chose to decrease the dose but to continue the high frequency to minimize the off phenomena that the patient is experiencing. I discussed this case in detail with Dr. Thomas. One medication that we could try, but would have to be started as an outpatient due to pre-authorization requirement, would be Droxidopa. We may have to consider also to discontinue the tamsulosin to help prevent any further orthostasis but the patient has been on the medication since the , and therefore I highly doubt that this is significantly impacting his orthostasis. We cannot start Midodrine in this case because of his supine hypertension. Please continue compressive stockings. We discussed conservative nonpharmacological methods of improving the orthostasis by certain stretches and exercise that he can do in bed before trying to stand. Unfortunately , if his symptoms do not improve the patient will need to consider using a wheel chair. In regards to the levodopa induced dyskinesia, lowering the Sinemet dose will hopefully help reduce some of these movements. He has no evidence of any significant motor symptoms of Parkinson's given that he has no tremors or cogwheel rigidity. Another outpatient medication that could be considered would be subcutaneous morphine infusion to help with the on/off phenomenon and to reduce the medication induced dyskinesia. Parkinson's disease psychosis - this is not disabling at this time. However, Nuplazid would be a medication to help with his psychiatric symptoms in the future instead of using any other atypical antipsychotic agents that may worsen his Parkinson's disease. We started the patient on cyanocobalamin 1000 mcg intramuscular injection to be given daily for the next 5 days. We also started him on cyanocobalamin 1000 mcg p.o. daily to take for at least 3 to 6 months. Please repeat a vitamin B12 level in 3 months. Please also start the patient on thiamine 100 mg daily given his, although he does not think that he has any symptoms or suggestion of possible alcohol abuse , but given his alcohol intake thiamine 100 mg daily will probably could help with his cognition and the neuropathy. I discussed these recommendations with the patient and Dr. Thomas. Dr. Akua Salter will be covering the neurology service starting tomorrow. I will sign out to her tonight. Please continue neuro check every 4 hours and supportive care. Please practice fall precautions and precaution measures. We need the case packer and sealer to be involved in this case to evaluate the patient for short term rehabilitation, home health aide and also to make sure the patient is taking this medications on correctly. The big issue here is that the patient has to climb the stairs to get to his bedroom. Please discuss other ways to prevent him from climbing the stairs and causing any potential falls and severe head injuries. [id number]/[facility] #: [id number] LISA
[2018-08-09] MEDS: Finasteride TAB* 5 MG PO SCH (17:47)
[2018-08-09] MEDS ORDERED: Tamsulosin CAP* 0.4 MG PO SCH (18:30)
--- NOTE | 2018-08-09 18:30 | PN ---
Subjective Date of Service: 08/09/18 Interval History: Patient assessed this morning in bed. Patient is pleasant and responding appropriately. Denies dizziness, headache, cp, sob, palpitations, weakness, fever, chills. Received call from nurse this afternoon who reports patient is agitated, trying to get up without assistance, and asking to go home. Encouraged nursing to place a call to patient's and inquire about baseline and have her speak to patient as this might be calming for the patient. Objective Active Medications: Acetaminophen (Tylenol Tab*) 650 mg PO Q4H PRN PRN Reason: FEVER/PAIN Cyanocobalamin (Vitamin B12 Tab*) 1,000 mcg PO DAILY [facility] Last Admin: 08/09/18 10:16 Dose: 1,000 mcg Docusate Sodium (Colace Cap*) 100 mg PO BID [facility] Last Admin: 08/09/18 10:16 Dose: 100 mg Famotidine (Pepcid Tab*) 40 mg PO 2100 [facility] Last Admin: 08/08/18 23:44 Dose: 40 mg Finasteride (Proscar Tab*) 5 mg PO 1830 [facility] Last Admin: 08/09/18 17:47 Dose: 5 mg Fluoxetine HCl (Prozac Cap*) 20 mg PO DAILY [facility] Last Admin: 08/09/18 10:16 Dose: 20 mg Heparin Sodium (Porcine) (Heparin Vial(*)) 5,000 units SUBCUT Q8HR [facility] Last Admin: 08/09/18 14:02 Dose: 5,000 units Hydralazine HCl (Apresoline Iv*) 5 mg IV SLOW PU Q6H PRN PRN Reason: HTN Sodium Chloride (Ns 0.9% 1000 Ml) 1,000 mls @ 75 mls/hr IV PER RATE [facility] Magnesium Hydroxide (Milk Of Magnesia Liq*) 30 ml PO Q4H PRN PRN Reason: CONSTIPATION Pto: [Melatonin] 5 (Mg) 5 mg PO BEDTIME PRN PRN Reason: INSOMNIA Last Admin: 08/08/18 23:45 Dose: 5 mg Pto: Genteal Tears - (Eye Drops) 1 dose BOTH EYES DAILY PRN PRN Reason: DRY EYES Pto: Carbidopa- Levodopa Er 25-100 Tablets 2 dose PO 0600,1000,1400,1800 [facility] Last Admin: 08/09/18 17:47 Dose: 2 dose Polyethylene Glycol/Electrolytes (Miralax*) 17 gm PO DAILY WITH MEAL [facility] Last Admin: 08/09/18 10:17 Dose: 17 gm Rasagiline (Azilect (Nf)) 0.5 mg PO DAILY [facility] Tamsulosin HCl (Flomax Cap*) 0.4 mg PO 1830 [facility] Last Admin: 08/09/18 17:47 Dose: 0.4 mg Vital Signs - 8 hr 08/09/18 12:11 Temperature 97.8 F Pulse Rate 71 Respiratory 18 Rate Blood Pressure 102/84 (mmHg) O2 Sat by Pulse 97 Oximetry Oxygen Devices in Use Now: None Appearance: Comfortable, NAD Eyes: No Scleral Icterus Ears/Nose/Mouth/Throat: Clear Oropharnyx, Mucous Membranes Moist Neck: NL Appearance and Movements; NL JVP Respiratory: Symmetrical Chest Expansion and Respiratory Effort, Clear to Auscultation Cardiovascular: NL Sounds; No Murmurs; No JVD, RRR, No Edema Abdominal: NL Sounds; No Tenderness; No Distention Lymphatic: No Cervical Adenopathy Extremities: No Edema Skin: No Rash or Ulcers Neurological: NL Muscle Strength and Tone, - - Alert to self and place. Unsure of year and situation. Dyskinesia noted during exam Nutrition: Taking PO's Result Diagrams: 08/09/18 05:19 08/09/18 05:19 Additional Lab and Data: Laboratory Results - last 24 hr 08/09/18 08/09/18 08/09/18 02:35 05:19 05:19 WBC 4.8 RBC 4.11 L Hgb 13.6 L Hct 40 L MCV 98 H MCH 33 H MCHC 34 RDW 13 Plt Count 180 MPV 9.0 Neut % (Auto) 58.8 Lymph % (Auto) 28.7 [place] % (Auto) 10.2 Eos % (Auto) 1.2 Baso % (Auto) 1.1 Absolute Neuts (auto) 2.8 Absolute Lymphs (auto) 1.4 Absolute Monos (auto) 0.5 Absolute Eos (auto) 0.1 Absolute Basos (auto) 0.1 Absolute Nucleated RBC 0.0 Nucleated RBC % 0.0 Sodium 139 Potassium 4.0 Chloride 106 Carbon Dioxide 26 Anion Gap 7 BUN 14 Creatinine 0.66 L Est GFR ( Amer) 143.2 Est GFR (Non-Af Amer) 118.3 BUN/Creatinine Ratio 21.2 H Glucose 97 Calcium 8.8 Vitamin B12 175 L Folate 15.27 Urine Color Straw Urine Appearance Clear Urine pH 6.0 Ur Specific Temple 1.008 L Urine Protein Negative Urine Ketones Negative Urine Blood Negative Urine Nitrate Negative Urine Bilirubin Negative Urine Urobilinogen Negative Ur Leukocyte Esterase Negative Urine Glucose Negative Microbiology and Other Data: . Assess/Plan/Problems-Billing Assessment: 73 yr old male with pmh of parkinsons, orthostatic hypotension, nick, carotid disease, hld; who presented to ED due orthostatsis and frequent falls - Patient Problems (1) Orthostatic hypotension Comment: - Evaluated by Dr Snider who suspects hypotension could be secondary Parkisons and exacerbated by patient's medications as he did have increase in Levadopa around the same time that he started falling. Dr Snider has decreased Levadopa from 3 tabs QID to 2 tabs QID. In addition he has decreased patient's Azilect - We will continue to monitor patient and recheck orthostatics routinely. (2) Hypertension Comment: - Patient noted to be hypertensive when lying flat in ED, therefore, hydralazine PRN ordered and will be continued. (3) Falls frequently Comment: - Patient is a high fall risk given dx of parkinsons, recent orthostatsis, and multiple previous falls. - Personal and bed alarm in place - PT/OT consulting (4) Confusion Comment: - Per H&P patient's had previously discussed increased confusion with Dr Thomas as outpatient. - Urine wnl. - Suspected secondary to parkinson's disease (5) Macrocytic anemia Comment: - Noted to be slightly macrocytic anemia - Vitamin B12 and Folate ordered (6) Parkinson disease Comment: - Cont medication with above mentioned changes. - Patient currently resides at home with . May benefit from rehab. manager of internal to discuss with - PT/OT consulting (7) DVT prophylaxis Comment: - SubQ Heparin Status and Disposition: Inpatient. Maybe rehab at discharge? Attending: Flavio Tomlinson
[2018-08-09] MEDS: Famotidine TAB* 20 MG PO SCH (21:27)
[2018-08-09] MEDS: MELATONIN 5 MG PO PRN (21:28)
[2018-08-10] MEDS: Heparin VIAL(*) 5000 UNITS/ML VIAL (FIVE THOUSAND) SUBCUT SCH ×3 (06:13→21:55)
[2018-08-10] MEDS: CARBIDOPA LEVODOPA PO SCH (06:19)
[2018-08-10] MEDS: Cyanocobalamin TAB* 500 MCG PO SCH (08:23)
[2018-08-10] MEDS: FLUoxetine CAP* 20 MG PO SCH (08:23)
[2018-08-10] MEDS: Docusate CAP* 100 MG PO SCH ×2 (08:23→21:55)
[2018-08-10] MEDS: Polyethylene Glycol 3350* 17 GM PACKET PO SCH (08:23)
[2018-08-10] MEDS: CARBIDOPA PO SCH ×3 (08:48→17:32)
[2018-08-10] MEDS: RASAGILINE 1 MG PO SCH (08:48)
[2018-08-10] MEDS: LEVODOPA PO SCH ×3 (08:48→17:32)
--- NOTE | 2018-08-10 09:05 | PN ---
Progress Note - Progress Note Date of Service: 08/10/18 Note: HPI: 73 -year-old gentleman withy history of parkinson's disease with DBStim, orthostatic hypotension admitted with dyskinesias and falls. He was found to have orthostasis and B12 deficiency. He has been worried about abnormal movements. This morning with reduced carbidopa/levodopa CR dose he notes decreased dyskinesias. He has just gotten up, and is eating breakfast. There has been no light-headedness. Medications: Acetaminophen (Tylenol Tab*) 650 mg PO Q4H PRN PRN Reason: FEVER/PAIN Carbidopa/Levodopa (Carbidopa-Levo Er 25-100 Tab) 2 tab PO 0600,1000,1400,1800 [facility] Last Admin: 08/10/18 08:48 Dose: 2 tab Cyanocobalamin (Vitamin B12 Tab*) 1,000 mcg PO DAILY [facility] Last Admin: 08/10/18 08:23 Dose: 1,000 mcg Docusate Sodium (Colace Cap*) 100 mg PO BID [facility] Last Admin: 08/10/18 08:23 Dose: 100 mg Famotidine (Pepcid Tab*) 40 mg PO 2100 [facility] Last Admin: 08/09/18 21:27 Dose: 40 mg Finasteride (Proscar Tab*) 5 mg PO 1830 [facility] Last Admin: 08/09/18 17:47 Dose: 5 mg Fluoxetine HCl (Prozac Cap*) 20 mg PO DAILY [facility] Last Admin: 08/10/18 08:23 Dose: 20 mg Heparin Sodium (Porcine) (Heparin Vial(*)) 5,000 units SUBCUT Q8HR [facility] Last Admin: 08/10/18 06:13 Dose: 5,000 units Hydralazine HCl (Apresoline Iv*) 5 mg IV SLOW PU Q6H PRN PRN Reason: HTN Sodium Chloride (Ns 0.9% 1000 Ml) 1,000 mls @ 75 mls/hr IV PER RATE [facility] Magnesium Hydroxide (Milk Of Magnesia Liq*) 30 ml PO Q4H PRN PRN Reason: CONSTIPATION Pto: [Melatonin] 5 (Mg) 5 mg PO BEDTIME PRN PRN Reason: INSOMNIA Last Admin: 08/09/18 21:28 Dose: 5 mg Pto: Genteal Tears - (Eye Drops) 1 dose BOTH EYES DAILY PRN PRN Reason: DRY EYES Polyethylene Glycol/Electrolytes (Miralax*) 17 gm PO DAILY WITH MEAL [facility] Last Admin: 08/10/18 08:23 Dose: 17 gm Rasagiline (Azilect (Nf)) 0.5 mg PO DAILY [facility] Last Admin: 08/10/18 08:48 Dose: 0.5 mg Tamsulosin HCl (Flomax Cap*) 0.4 mg PO 1830 [facility] Last Admin: 08/09/18 17:47 Dose: 0.4 mg Examination: Vital Signs 08/09/18 08/09/18 08/09/18 12:11 18:55 19:39 Temperature 97.8 F 98.7 F Pulse Rate 71 66 Respiratory 18 18 18 Rate Blood Pressure 102/84 154/86 (mmHg) O2 Sat by Pulse 97 96 Oximetry 08/09/18 08/10/18 08/10/18 23:22 06:14 07:35 Temperature 98.1 F 98.8 F Pulse Rate 70 62 Respiratory 16 18 20 Rate Blood Pressure 160/93 168/85 (mmHg) O2 Sat by Pulse 96 98 Oximetry 08/10/18 07:47 Temperature 98.3 F Pulse Rate 74 Respiratory 16 Rate Blood Pressure 111/71 (mmHg) O2 Sat by Pulse 98 Oximetry There was a regular cardiac rhythm, lungs were clear to auscultation. Mild dyskinesias were noted with head movement. There was slight hypophonia. He had full extraocular movements with no nystagmus. Full max to confrontation. There was slight decrease in facial expression, that was symmetric. There was no pronator drift. His arms and legs were strong. Rapid alternating movements were normal in the hands and feet. There was no dysmetria. Data: Labs reviewed: Of note, B12 175, TSH normal, Bun/Cr ratio elevated. 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 Agree with medication changes made yesterday. Will monitor examination. Some subjective improvement of dyskinesias. Needs ongoing monitoring of orthostasic vitals. Encouraged intake of non-alcoholic, non- caffeinated beverages. (Note ETOH intake is 1-4 glasses of wine a week, not day per patient). Support hose. May need to consider stopping tamsulosin. Agree with Dr. Snider's detailed consult regarding potential outpatient medications that could be considered ( ie.e Droxidopa). Mobilize with PT/OT. Patient to observe for improvement. I will re-evaluate later in the day. Supplement vitamin B12 as suggested by Dr. Snider. Patient states they are thinking about Jazmin. With his current diagnoses, and expected progression, he will need living space with bedroom on first floor, and potential further help in future. > 30 minutes spent in patient care. Education provided, and all questions answered.
[2018-08-10] MEDS: NS 0.9% 1000 ML** 1,000 ML IV SCH (10:00)
--- NOTE | 2018-08-10 16:26 | PN ---
Subjective Date of Service: 08/10/18 Interval History: Up sitting in chair on assessment. Denies dizziness at rest or with position change. Denies headache, weakness, cp, sob. Objective Active Medications: Acetaminophen (Tylenol Tab*) 650 mg PO Q4H PRN PRN Reason: FEVER/PAIN Carbidopa/Levodopa (Carbidopa-Levo Er 25-100 Tab) 2 tab PO 0600,1000,1400,1800 [facility] Last Admin: 08/10/18 13:50 Dose: 2 tab Cyanocobalamin (Vitamin B12 Tab*) 1,000 mcg PO DAILY [facility] Last Admin: 08/10/18 08:23 Dose: 1,000 mcg Docusate Sodium (Colace Cap*) 100 mg PO BID [facility] Last Admin: 08/10/18 08:23 Dose: 100 mg Famotidine (Pepcid Tab*) 40 mg PO 2100 [facility] Last Admin: 08/09/18 21:27 Dose: 40 mg Finasteride (Proscar Tab*) 5 mg PO 1830 [facility] Last Admin: 08/09/18 17:47 Dose: 5 mg Fluoxetine HCl (Prozac Cap*) 20 mg PO DAILY [facility] Last Admin: 08/10/18 08:23 Dose: 20 mg Heparin Sodium (Porcine) (Heparin Vial(*)) 5,000 units SUBCUT Q8HR [facility] Last Admin: 08/10/18 13:50 Dose: 5,000 units Hydralazine HCl (Apresoline Iv*) 5 mg IV SLOW PU Q6H PRN PRN Reason: HTN Sodium Chloride (Ns 0.9% 1000 Ml) 1,000 mls @ 75 mls/hr IV PER RATE [facility] Magnesium Hydroxide (Milk Of Magnesia Liq*) 30 ml PO Q4H PRN PRN Reason: CONSTIPATION Pto: [Melatonin] 5 (Mg) 5 mg PO BEDTIME PRN PRN Reason: INSOMNIA Last Admin: 08/09/18 21:28 Dose: 5 mg Pto: Genteal Tears - (Eye Drops) 1 dose BOTH EYES DAILY PRN PRN Reason: DRY EYES Polyethylene Glycol/Electrolytes (Miralax*) 17 gm PO DAILY WITH MEAL [facility] Last Admin: 08/10/18 08:23 Dose: 17 gm Rasagiline (Azilect (Nf)) 0.5 mg PO DAILY [facility] Last Admin: 08/10/18 08:48 Dose: 0.5 mg Tamsulosin HCl (Flomax Cap*) 0.4 mg PO 1830 [facility] Last Admin: 08/09/18 17:47 Dose: 0.4 mg Vital Signs - 8 hr 08/10/18 08/10/18 08/10/18 09:47 09:57 11:22 Temperature 97.2 F Pulse Rate 63 75 62 Respiratory 20 Rate Blood Pressure 98/66 77/50 146/84 (mmHg) O2 Sat by Pulse 96 97 Oximetry 08/10/18 08/10/18 08/10/18 13:54 13:55 14:05 Temperature Pulse Rate 68 76 105 Respiratory Rate Blood Pressure 115/71 99/58 68/49 (mmHg) O2 Sat by Pulse Oximetry 08/10/18 15:08 Temperature 97.8 F Pulse Rate 76 Respiratory 16 Rate Blood Pressure 112/66 (mmHg) O2 Sat by Pulse 98 Oximetry Oxygen Devices in Use Now: None Appearance: Comfortable, NAD, less dyskinesias Eyes: No Scleral Icterus Ears/Nose/Mouth/Throat: Clear Oropharnyx, Mucous Membranes Moist Neck: NL Appearance and Movements; NL JVP Respiratory: Symmetrical Chest Expansion and Respiratory Effort, Clear to Auscultation Cardiovascular: NL Sounds; No Murmurs; No JVD, RRR, No Edema Abdominal: NL Sounds; No Tenderness; No Distention Lymphatic: No Cervical Adenopathy Extremities: No Clubbing, Cyanosis Skin: No Rash or Ulcers Neurological: Alert and Oriented x 3, NL Muscle Strength and Tone Nutrition: Taking PO's Result Diagrams: 08/09/18 05:19 08/09/18 05:19 Additional Lab and Data: . Microbiology and Other Data: . Assess/Plan/Problems-Billing Assessment: 73 yr old male with pmh of parkinsons, orthostatic hypotension, nick, carotid disease, hld; who presented to ED due orthostatsis and frequent falls - Patient Problems (1) Orthostatic hypotension Comment: - Yesterday Levadopa decreased from from 3 tabs QID to 2 tabs QID and Azilect decreased - Less dyskinesias noted today. - Denies dizziness to this database report writer, but nurse reports during orthostatic vital signs patient has noted SBP decrease and reported dizziness - Continue orthostatics as recommended ordered by Dr Salter (2) Hypertension Comment: - Patient noted to be hypertensive when lying flat in ED, therefore, hydralazine PRN ordered and will be continued. (3) Falls frequently Comment: - Patient is a high fall risk given dx of parkinsons, recent orthostatsis, and multiple previous falls. - Personal and bed alarm in place - PT/OT consulting (4) Confusion Comment: - Per H&P patient's had previously discussed increased confusion with Dr Thomas as outpatient. - Urine wnl. - Suspected secondary to parkinson's disease (5) Macrocytic anemia Comment: - Noted to be slightly macrocytic anemia - Vitamin B12 low and replacement ordered (6) Parkinson disease Comment: - Cont medication with above mentioned changes. - Patient currently resides at home with . May benefit from rehab. client service and consulting manager to discuss with - PT/OT consulting (7) DVT prophylaxis Comment: - SubQ Heparin Status and Disposition: Inpatient. Rehab discharge Attending: Flavio Tomlinson
[2018-08-10] MEDS: Finasteride TAB* 5 MG PO SCH (17:32)
[2018-08-10] MEDS: Famotidine TAB* 20 MG PO SCH (21:55)
[2018-08-11] MEDS: CARBIDOPA PO SCH ×4 (05:25→17:20)
[2018-08-11] MEDS: LEVODOPA PO SCH ×4 (05:25→17:20)
[2018-08-11] MEDS: Heparin VIAL(*) 5000 UNITS/ML VIAL (FIVE THOUSAND) SUBCUT SCH ×3 (05:26→20:30)
[2018-08-11] MEDS: NS 0.9% 1000 ML** 1,000 ML IV SCH (07:30)
[2018-08-11] MEDS: Polyethylene Glycol 3350* 17 GM PACKET PO SCH (08:10)
[2018-08-11] MEDS: RASAGILINE 1 MG PO SCH (08:11)
[2018-08-11] MEDS: Docusate CAP* 100 MG PO SCH ×2 (08:12→20:29)
[2018-08-11] MEDS: Cyanocobalamin TAB* 500 MCG PO SCH (08:12)
[2018-08-11] MEDS: FLUoxetine CAP* 20 MG PO SCH (08:12)
--- NOTE | 2018-08-11 14:03 | PN ---
Subjective Date of Service: 08/11/18 Interval History: Per nursing patient had significant orthostatsis on vital sign check after breakfast today. He also reported dizziness with position changes. On assessment patient is sitting in bed with at bedside. He reports dizziness today with position changes. He reports improvement in dyskinesias. Denies weakness, cp, sob, headache, fever, chills. Objective Active Medications: Acetaminophen (Tylenol Tab*) 650 mg PO Q4H PRN PRN Reason: FEVER/PAIN Carbidopa/Levodopa (Carbidopa-Levo Er 25-100 Tab) 2 tab PO 0600,1000,1400,1800 [facility] Last Admin: 08/11/18 13:26 Dose: 2 tab Cyanocobalamin (Vitamin B12 Tab*) 1,000 mcg PO DAILY [facility] Last Admin: 08/11/18 08:12 Dose: 1,000 mcg Docusate Sodium (Colace Cap*) 100 mg PO BID [facility] Last Admin: 08/11/18 08:12 Dose: 100 mg Famotidine (Pepcid Tab*) 40 mg PO 2100 [facility] Last Admin: 08/10/18 21:55 Dose: 40 mg Finasteride (Proscar Tab*) 5 mg PO 1830 [facility] Last Admin: 08/10/18 17:32 Dose: 5 mg Fluoxetine HCl (Prozac Cap*) 20 mg PO DAILY [facility] Last Admin: 08/11/18 08:12 Dose: 20 mg Heparin Sodium (Porcine) (Heparin Vial(*)) 5,000 units SUBCUT Q8HR [facility] Last Admin: 08/11/18 13:26 Dose: 5,000 units Hydralazine HCl (Apresoline Iv*) 5 mg IV SLOW PU Q6H PRN PRN Reason: HTN Sodium Chloride (Ns 0.9% 1000 Ml) 1,000 mls @ 75 mls/hr IV PER RATE [facility] Last Admin: 08/11/18 07:30 Dose: 75 mls/hr Magnesium Hydroxide (Milk Of Magnesia Liq*) 30 ml PO Q4H PRN PRN Reason: CONSTIPATION Pto: [Melatonin] 5 (Mg) 5 mg PO BEDTIME PRN PRN Reason: INSOMNIA Last Admin: 08/09/18 21:28 Dose: 5 mg Pto: Genteal Tears - (Eye Drops) 1 dose BOTH EYES DAILY PRN PRN Reason: DRY EYES Polyethylene Glycol/Electrolytes (Miralax*) 17 gm PO DAILY WITH MEAL [facility] Last Admin: 08/11/18 08:10 Dose: 17 gm Rasagiline (Azilect (Nf)) 0.5 mg PO DAILY [facility] Last Admin: 08/11/18 08:11 Dose: 0.5 mg Vital Signs - 8 hr 08/11/18 08/11/18 08/11/18 07:19 07:30 09:25 Temperature 97.6 F Pulse Rate 55 65 Respiratory 16 16 Rate Blood Pressure 134/87 120/80 (mmHg) O2 Sat by Pulse 100 Oximetry 08/11/18 08/11/18 08/11/18 09:29 09:32 11:40 Temperature 97.2 F Pulse Rate 82 84 60 Respiratory 16 Rate Blood Pressure 76/51 59/42 133/80 (mmHg) O2 Sat by Pulse 96 97 Oximetry 08/11/18 08/11/18 08/11/18 13:31 13:35 13:54 Temperature Pulse Rate 76 79 79 Respiratory Rate Blood Pressure 118/77 78/56 96/64 (mmHg) O2 Sat by Pulse Oximetry Oxygen Devices in Use Now: None Appearance: Comfortable, NAD Eyes: No Scleral Icterus Ears/Nose/Mouth/Throat: Clear Oropharnyx, Mucous Membranes Moist Neck: NL Appearance and Movements; NL JVP Respiratory: Symmetrical Chest Expansion and Respiratory Effort, Clear to Auscultation Cardiovascular: NL Sounds; No Murmurs; No JVD, RRR, No Edema Abdominal: NL Sounds; No Tenderness; No Distention Lymphatic: No Cervical Adenopathy Extremities: No Edema Skin: No Rash or Ulcers Neurological: Alert and Oriented x 3, NL Muscle Strength and Tone Nutrition: Taking PO's Result Diagrams: 08/09/18 05:08/09/18 05:19 Additional Lab and Data: . Microbiology and Other Data: . Assess/Plan/Problems-Billing Assessment: 73 yr old male with pmh of parkinsons, orthostatic hypotension, nick, carotid disease, hld; who presented to ED due orthostatsis and frequent falls - Patient Problems (1) Orthostatic hypotension Comment: - 08/09 Levadopa decreased from from 3 tabs QID to 2 tabs QID and Azilect decreased - Less dyskinesias noted today. - Dizziness reported - Cont to be orthostatic - Continue orthostatic vital signs as ordered by Dr Salter (2) Hypertension Comment: - Patient noted to be hypertensive when lying flat in ED, therefore, hydralazine PRN ordered and will be continued. (3) Falls frequently Comment: - Patient is a high fall risk given dx of parkinsons, recent orthostatsis, and multiple previous falls. - Personal and bed alarm in place - PT/OT consulting (4) Confusion Comment: - Per H&P patient's had previously discussed increased confusion with Dr Thomas as outpatient. - Urine wnl. - Suspected secondary to parkinson's disease (5) Macrocytic anemia Comment: - Noted to be slightly macrocytic anemia - Vitamin B12 low and replacement ordered (6) Parkinson disease Comment: - Cont medication with above mentioned changes. - Patient currently resides at home with . May benefit from rehab. payment manager to discuss with - PT/OT consulting (7) DVT prophylaxis Comment: - SubQ Heparin Status and Disposition: Inpatient. Rehab discharge Attending: Flavio Tomlinson
[2018-08-11] MEDS: Finasteride TAB* 5 MG PO SCH (17:20)
--- NOTE | 2018-08-11 17:49 | PN ---
Progress Note - Progress Note Date of Service: 08/11/18 Note: HPI: Lightheadness after bowel movement. Only time shuffling was noted by nurse. Up to bathroom several times with walker and nurse at side. No freezing observed. Continued orthostatic vitals without supine hypertension. Improved subjective dyskinesias. Medications: Acetaminophen (Tylenol Tab*) 650 mg PO Q4H PRN PRN Reason: FEVER/PAIN Carbidopa/Levodopa (Carbidopa-Levo Er 25-100 Tab) 2 tab PO 0600,1000,1400,1800 [facility] Last Admin: 08/11/18 17:20 Dose: 2 tab Cyanocobalamin (Vitamin B12 Tab*) 1,000 mcg PO DAILY [facility] Last Admin: 08/11/18 08:12 Dose: 1,000 mcg Docusate Sodium (Colace Cap*) 100 mg PO BID [facility] Last Admin: 08/11/18 08:12 Dose: 100 mg Famotidine (Pepcid Tab*) 40 mg PO 2100 [facility] Last Admin: 08/10/18 21:55 Dose: 40 mg Finasteride (Proscar Tab*) 5 mg PO 1830 [facility] Last Admin: 08/11/18 17:20 Dose: 5 mg Fluoxetine HCl (Prozac Cap*) 20 mg PO DAILY [facility] Last Admin: 08/11/18 08:12 Dose: 20 mg Heparin Sodium (Porcine) (Heparin Vial(*)) 5,000 units SUBCUT Q8HR [facility] Last Admin: 08/11/18 13:26 Dose: 5,000 units Hydralazine HCl (Apresoline Iv*) 5 mg IV SLOW PU Q6H PRN PRN Reason: HTN Sodium Chloride (Ns 0.9% 1000 Ml) 1,000 mls @ 75 mls/hr IV PER RATE [facility] Last Admin: 08/11/18 07:30 Dose: 75 mls/hr Magnesium Hydroxide (Milk Of Magnesia Liq*) 30 ml PO Q4H PRN PRN Reason: CONSTIPATION Pto: [Melatonin] 5 (Mg) 5 mg PO BEDTIME PRN PRN Reason: INSOMNIA Last Admin: 08/09/18 21:28 Dose: 5 mg Pto: Genteal Tears - (Eye Drops) 1 dose BOTH EYES DAILY PRN PRN Reason: DRY EYES Polyethylene Glycol/Electrolytes (Miralax*) 17 gm PO DAILY WITH MEAL [facility] Last Admin: 08/11/18 08:10 Dose: 17 gm Rasagiline (Azilect (Nf)) 0.5 mg PO DAILY [facility] Last Admin: 08/11/18 08:11 Dose: 0.5 mg Examination: Temp Pulse Resp BP Pulse Ox 98.0 F 61 16 151/85 96 08/11/18 15:05 08/11/18 15:05 08/11/18 15:05 08/11/18 15:05 08/11/18 15:05 Vital Signs 08/10/18 08/10/18 08/10/18 19:43 20:00 23:45 Temperature 97.8 F 98.2 F Pulse Rate 66 61 Respiratory 18 18 16 Rate Blood Pressure 138/85 168/84 (mmHg) O2 Sat by Pulse 96 94 Oximetry 08/11/18 08/11/18 08/11/18 03:08 07:19 07:30 Temperature 97.9 F 97.6 F Pulse Rate 62 55 Respiratory 12 16 16 Rate Blood Pressure 150/90 134/87 (mmHg) O2 Sat by Pulse 99 100 Oximetry 08/11/18 08/11/18 08/11/18 09:25 09:29 09:32 Temperature Pulse Rate 65 82 84 Respiratory Rate Blood Pressure 120/80 76/51 59/42 (mmHg) O2 Sat by Pulse 96 Oximetry 08/11/18 08/11/18 08/11/18 11:40 13:31 13:35 Temperature 97.2 F Pulse Rate 60 76 79 Respiratory 16 Rate Blood Pressure 133/80 118/77 78/56 (mmHg) O2 Sat by Pulse 97 97 Oximetry 08/11/18 08/11/18 13:54 15:05 Temperature 98.0 F Pulse Rate 79 61 Respiratory 16 Rate Blood Pressure 96/64 151/85 (mmHg) O2 Sat by Pulse 96 Oximetry Regular cardiac rhythm. Lungs clear to auscultation. No carotid bruit. Slight hypophonia. Decreased facial expression. No dysarthria. No dyskinesias. Good tone. Good rapid alternating movements. No tremor. No pronator drift. Full strength in upper and lower extremities. No dysmetria. Impression: Parkinson's disease with orthostatic hypotension, admitted with falls and dyskinesias. Dyskinesias better with reduced medications. Will try low dose fludrocortisone for his orthostatic hypotension. Supine hypertension may be limitation. Continue orthostatic vitals. PT/OT/Rehab evaluation. Education provided 30 minutes care.
[2018-08-11] MEDS: Famotidine TAB* 20 MG PO SCH (20:29)
[2018-08-12] MEDS: NS 0.9% 1000 ML** 1,000 ML IV SCH (03:21)
[2018-08-12] MEDS: CARBIDOPA PO SCH ×4 (06:01→17:47)
[2018-08-12] MEDS: Heparin VIAL(*) 5000 UNITS/ML VIAL (FIVE THOUSAND) SUBCUT SCH ×3 (06:01→21:50)
[2018-08-12] MEDS: LEVODOPA PO SCH ×4 (06:01→17:47)
[2018-08-12 06:43] LABS: BUN/Creatinine Ratio 20.5 (8-20); Calcium 9.1 mg/dL (8.6-10.3); EGFR African American 118.1 (>60); EGFR Non-African American 97.6 (>60); Potassium 4.6 mmol/L (3.5-5.0)
--- NOTE | 2018-08-12 08:38 | PN ---
Subjective Date of Service: 08/12/18 Length of Stay: 4 Days Interval History: Pt examined today at the bedside. Patient is a 73 y/o male patient with history of Parkinson's disease on sinemet With a longstanding history of orthostatic hypotension. Over the last several months he has had increasing frequency of falls in the setting of orthostatic hypotension. He was seen in the neurology clinic last week and due to the increased falls despite measures to control his orthostatic hypotension he continued to fall due to his hypotension he was admitted for further management. Review of Systems: Denied CP, SOB, or palpitations. Objective Active Medications: Acetaminophen (Tylenol Tab*) 650 mg PO Q4H PRN PRN Reason: FEVER/PAIN Carbidopa/Levodopa (Carbidopa-Levo Er 25-100 Tab) 2 tab PO 0600,1000,1400,1800 [facility] Last Admin: 08/12/18 06:01 Dose: 2 tab Cyanocobalamin (Vitamin B12 Tab*) 1,000 mcg PO DAILY [facility] Last Admin: 08/11/18 08:12 Dose: 1,000 mcg Docusate Sodium (Colace Cap*) 100 mg PO BID [facility] Last Admin: 08/11/18 20:29 Dose: 100 mg Famotidine (Pepcid Tab*) 40 mg PO 2100 [facility] Last Admin: 08/11/18 20:29 Dose: 40 mg Finasteride (Proscar Tab*) 5 mg PO 1830 [facility] Last Admin: 08/11/18 17:20 Dose: 5 mg Fludrocortisone Acetate (Florinef Tab*) 0.1 mg PO DAILY [facility] Fluoxetine HCl (Prozac Cap*) 20 mg PO DAILY [facility] Last Admin: 08/11/18 08:12 Dose: 20 mg Heparin Sodium (Porcine) (Heparin Vial(*)) 5,000 units SUBCUT Q8HR [facility] Last Admin: 08/12/18 06:01 Dose: 5,000 units Hydralazine HCl (Apresoline Iv*) 5 mg IV SLOW PU Q6H PRN PRN Reason: HTN Sodium Chloride (Ns 0.9% 1000 Ml) 1,000 mls @ 75 mls/hr IV PER RATE [facility] Last Admin: 08/12/18 03:21 Dose: 75 mls/hr Magnesium Hydroxide (Milk Of Magnesia Liq*) 30 ml PO Q4H PRN PRN Reason: CONSTIPATION Pto: [Melatonin] 5 (Mg) 5 mg PO BEDTIME PRN PRN Reason: INSOMNIA Last Admin: 08/09/18 21:28 Dose: 5 mg Pto: Genteal Tears - (Eye Drops) 1 dose BOTH EYES DAILY PRN PRN Reason: DRY EYES Polyethylene Glycol/Electrolytes (Miralax*) 17 gm PO DAILY WITH MEAL [facility] Last Admin: 08/11/18 08:10 Dose: 17 gm Rasagiline (Azilect (Nf)) 0.5 mg PO DAILY [facility] Last Admin: 08/11/18 08:11 Dose: 0.5 mg Vital Signs 08/11/18 08/11/18 08/11/18 09:25 09:29 09:32 Temperature Pulse Rate 65 82 84 Respiratory Rate Blood Pressure 120/80 76/51 59/42 (mmHg) O2 Sat by Pulse 96 Oximetry 08/11/18 08/11/18 08/11/18 11:40 13:31 13:35 Temperature 97.2 F Pulse Rate 60 76 79 Respiratory 16 Rate Blood Pressure 133/80 118/77 78/56 (mmHg) O2 Sat by Pulse 97 97 Oximetry 08/11/18 08/11/18 08/11/18 13:54 15:05 19:11 Temperature 98.0 F Pulse Rate 79 61 41 Respiratory 16 Rate Blood Pressure 96/64 151/85 101/56 (mmHg) O2 Sat by Pulse 96 Oximetry 08/11/18 08/11/18 08/11/18 19:12 19:30 20:00 Temperature 97.8 F Pulse Rate 72 Respiratory 18 18 Rate Blood Pressure 91/45 151/86 (mmHg) O2 Sat by Pulse 96 Oximetry 08/11/18 08/12/18 08/12/18 22:47 03:43 07:41 Temperature 98.5 F 97.8 F 98.2 F Pulse Rate 70 62 55 Respiratory 18 18 20 Rate Blood Pressure 147/90 164/96 147/85 (mmHg) O2 Sat by Pulse 95 97 95 Oximetry Intake and Output Last 24 Hours 08/10/18 08/11/18 08/12/18 08/13/18 06:59 06:59 06:59 06:59 Intake Total 1040 1520 3549 Output Total 1475 1025 550 Balance -250 027 9844 Intake: IV Fluids 1913 NS (0.9%) 1914 Oral 1040 1520 1635 Output: Urine 1475 1025 550 Other: Estimated Void Medium Large # Bowel Movements 1 1 Estimated Stool Amount Medium # Voids 3 1 1 Oxygen Devices in Use Now: None Neurology Exam: General: Well nourished, well developed, and in no acute distress HEENT: Normocephelic/abrasion to the right eye, sclera anicteric, mucous membranes moist Neck: Supple Chest: Clear to auscultation bilaterally Cardiovascular: Regular rate and rhythm without murmurs, rubs, gallops Abdomen: Soft, non-tender/non-distended Extremities: No clubbing, cyanosis, or edema Neurological Findings: Awake, alert, and oriented to person, place, and time. Speech: fluent without dysarthria, repetition intact Cranial Nerve: PERRL, EOM intact, VFF, no nystagmus, face symmetric bilaterally , facial sensation intact, hearing intact to finger rub bilaterally, palate elevates symmetrically, tongue midline, SCM and Trapezius 5/5, head bobbing dyskinesia noted Motor: 5/5 throughout, proximal and distal extremities x4 bulk normal, cogwheeling noted to the R>L, no drift Sensation: intact to LT to bilaterally upper and lower extremities Deep Tendon Reflex: 1+ symmetric in the upper/lower extremities, Babinski - down going Finger to nose intact, rapid alternating movements decreased worse on right than left, mild dyskinesia noted ( head bobbing), dysdiadochokinesia noted with finger tapping, Gait: not tested given profound orthostasis, Result Diagrams: 08/09/18 05:19 08/12/18 06:12 Additional Lab and Data: . Microbiology and Other Data: . Assessment/Plan Assessment: 73 yr old male with pmh of parkinsons, orthostatic hypotension, nick, carotid disease, hld; who presented to ED due orthostatsis and frequent falls Dyskinesias improving with reduced sinemet. low dose fludrocortisone to start today for his orthostatic hypotension. Supine hypertension may be limitation. Continue to monitor orthostatic vitals. Parkinsons stable at this point with exception of continued orthostasis, would continue current dose of sinemet. Still with mild dyskinesias of the head , cogwheeling noted to the right > left, gait not tested given profound orthostasis, will try florinef and see if there is any improvement, will need to be mindful of supine hypertension, Continue oob with caution given hx of falls and orthostasis, needs PT/OT/PMRU eval, .
[2018-08-12] MEDS: RASAGILINE 1 MG PO SCH (08:58)
[2018-08-12] MEDS: Polyethylene Glycol 3350* 17 GM PACKET PO SCH (08:58)
[2018-08-12] MEDS: FLUoxetine CAP* 20 MG PO SCH (08:59)
[2018-08-12] MEDS: Docusate CAP* 100 MG PO SCH ×2 (08:59→21:47)
[2018-08-12] MEDS: Cyanocobalamin TAB* 500 MCG PO SCH (08:59)
[2018-08-12] MEDS: Fludrocortisone Acetate TAB* 0.1 MG PO SCH (08:59)
--- NOTE | 2018-08-12 10:38 | PN ---
Subjective Date of Service: 08/12/18 Interval History: Patient reports he is feeling better today. at bedside stating he seems more like himself today. Patient reports he has been up to the bathroom recently and denies dizziness or pre-syncopal feeling. He reports "too many falls to count" He and his are discussing subacute rehab Objective Active Medications: Acetaminophen (Tylenol Tab*) 650 mg PO Q4H PRN PRN Reason: FEVER/PAIN Carbidopa/Levodopa (Carbidopa-Levo Er 25-100 Tab) 2 tab PO 0600,1000,1400,1800 [facility] Last Admin: 08/12/18 09:00 Dose: 2 tab Cyanocobalamin (Vitamin B12 Tab*) 1,000 mcg PO DAILY [facility] Last Admin: 08/12/18 08:59 Dose: 1,000 mcg Docusate Sodium (Colace Cap*) 100 mg PO BID [facility] Last Admin: 08/12/18 08:59 Dose: 100 mg Famotidine (Pepcid Tab*) 40 mg PO 2100 [facility] Last Admin: 08/11/18 20:29 Dose: 40 mg Finasteride (Proscar Tab*) 5 mg PO 1830 [facility] Last Admin: 08/11/18 17:20 Dose: 5 mg Fludrocortisone Acetate (Florinef Tab*) 0.1 mg PO DAILY [facility] Last Admin: 08/12/18 08:59 Dose: 0.1 mg Fluoxetine HCl (Prozac Cap*) 20 mg PO DAILY [facility] Last Admin: 08/12/18 08:59 Dose: 20 mg Heparin Sodium (Porcine) (Heparin Vial(*)) 5,000 units SUBCUT Q8HR [facility] Last Admin: 08/12/18 06:01 Dose: 5,000 units Hydralazine HCl (Apresoline Iv*) 5 mg IV SLOW PU Q6H PRN PRN Reason: HTN Sodium Chloride (Ns 0.9% 1000 Ml) 1,000 mls @ 75 mls/hr IV PER RATE [facility] Last Admin: 08/12/18 03:21 Dose: 75 mls/hr Magnesium Hydroxide (Milk Of Magnesia Liq*) 30 ml PO Q4H PRN PRN Reason: CONSTIPATION Pto: [Melatonin] 5 (Mg) 5 mg PO BEDTIME PRN PRN Reason: INSOMNIA Last Admin: 08/09/18 21:28 Dose: 5 mg Pto: Genteal Tears - (Eye Drops) 1 dose BOTH EYES DAILY PRN PRN Reason: DRY EYES Polyethylene Glycol/Electrolytes (Miralax*) 17 gm PO DAILY WITH MEAL [facility] Last Admin: 08/12/18 08:58 Dose: 17 gm Rasagiline (Azilect (Nf)) 0.5 mg PO DAILY [facility] Last Admin: 08/12/18 08:58 Dose: 0.5 mg Vital Signs - 8 hr 08/12/18 08/12/18 08/12/18 03:43 07:41 08:00 Temperature 97.8 F 98.2 F Pulse Rate 62 55 Respiratory 18 20 18 Rate Blood Pressure 164/96 147/85 (mmHg) O2 Sat by Pulse 97 95 Oximetry Oxygen Devices in Use Now: None Appearance: 73 yo male sitting up in bed in NAD, A+O x3 Eyes: No Scleral Icterus, PERRLA Ears/Nose/Mouth/Throat: NL Teeth, Lips, Gums, Mucous Membranes Moist Neck: NL Appearance and Movements; NL JVP Respiratory: Symmetrical Chest Expansion and Respiratory Effort, Clear to Auscultation Cardiovascular: NL Sounds; No Murmurs; No JVD, RRR, No Edema Abdominal: NL Sounds; No Tenderness; No Distention Extremities: No Edema, No Clubbing, Cyanosis Skin: No Nodules or Sclerosis Neurological: Alert and Oriented x 3, - - strength is 4/5 throughout Lines/Tubes/Other Access: Clean, Dry and Intact Peripheral IV Nutrition: Taking PO's Result Diagrams: 08/09/18 05:19 08/12/18 06:12 Additional Lab and Data: . Microbiology and Other Data: . Assess/Plan/Problems-Billing Assessment: 73 yr old male with pmh of parkinsons, orthostatic hypotension, nick, carotid disease, hld; who presented to ED due orthostatsis and frequent falls . - Patient Problems (1) Orthostatic hypotension Comment: - 08/09 Levadopa decreased from from 3 tabs QID to 2 tabs QID and Azilect decreased - Less dyskinesias noted today - Dizziness resolved? - Started on Florinef by Neuro - plan to continue monitoring orthostatic VS prior to meals. There is a risk of the florinef causing hypertention (2) Hypertension Comment: - Patient noted to be hypertensive when lying flat in ED, therefore, hydralazine PRN ordered and will be continued - must be used cautiously as it could cause worsening orthostatic hypotenstion (3) Falls frequently Comment: - Patient is a high fall risk given dx of parkinsons, recent orthostatsis, and multiple previous falls. - Personal and bed alarm in place - PT/OT consulting - Per Neuro - should use wheelchair (4) Parkinson disease Comment: - Cont medication with above mentioned changes. - Patient currently resides at home with . May benefit from rehab. global account manager to discuss with - PT/OT consulting (5) Confusion Code(s): R41.0 - DISORIENTATION, UNSPECIFIED Comment: - Resolving - per patient is closer to baseline - Urine wnl. - Suspected secondary to parkinson's disease (6) Macrocytic anemia Comment: - Noted to be slightly macrocytic anemia - Vitamin B12 low and replacement ordered (7) DVT prophylaxis Comment: - SubQ Heparin Status and Disposition: Inpatient. Subacute vs Home
[2018-08-12] MEDS: Finasteride TAB* 5 MG PO SCH (17:47)
[2018-08-12] MEDS: Famotidine TAB* 20 MG PO SCH (21:48)
[2018-08-13] MEDS: CARBIDOPA PO SCH ×4 (06:37→18:29)
[2018-08-13] MEDS: Heparin VIAL(*) 5000 UNITS/ML VIAL (FIVE THOUSAND) SUBCUT SCH ×3 (06:37→21:43)
[2018-08-13] MEDS: LEVODOPA PO SCH ×4 (06:37→18:29)
--- NOTE | 2018-08-13 07:54 | PN ---
Subjective Date of Service: 08/13/18 Length of Stay: 5 Days Interval History: Chris states he is feeling well today. He states that with standing he is not feeling lightheaded or dizzy. He has not fallen. He states that he is not having freezing episodes. He denies any loss of consciousness. He denies seizures. Denies headache. Review of Systems: Denied CP, SOB, or palpitations. Objective Active Medications: Acetaminophen (Tylenol Tab*) 650 mg PO Q4H PRN PRN Reason: FEVER/PAIN Carbidopa/Levodopa (Carbidopa-Levo Er 25-100 Tab) 2 tab PO 0600,1000,1400,1800 REPLACED BY [facility] Last Admin: 08/13/18 06:37 Dose: 2 tab Cyanocobalamin (Vitamin B12 Tab*) 1,000 mcg PO DAILY REPLACED BY [facility] Last Admin: 08/12/18 08:59 Dose: 1,000 mcg Docusate Sodium (Colace Cap*) 100 mg PO BID REPLACED BY [facility] Last Admin: 08/12/18 21:47 Dose: Not Given Famotidine (Pepcid Tab*) 40 mg PO 2100 REPLACED BY [facility] Last Admin: 08/12/18 21:48 Dose: 40 mg Finasteride (Proscar Tab*) 5 mg PO 1830 REPLACED BY [facility] Last Admin: 08/12/18 17:47 Dose: 5 mg Fludrocortisone Acetate (Florinef Tab*) 0.1 mg PO DAILY REPLACED BY [facility] Last Admin: 08/12/18 08:59 Dose: 0.1 mg Fluoxetine HCl (Prozac Cap*) 20 mg PO DAILY REPLACED BY [facility] Last Admin: 08/12/18 08:59 Dose: 20 mg Heparin Sodium (Porcine) (Heparin Vial(*)) 5,000 units SUBCUT Q8HR REPLACED BY [facility] Last Admin: 08/13/18 06:37 Dose: 5,000 units Hydralazine HCl (Apresoline Iv*) 5 mg IV SLOW PU Q6H PRN PRN Reason: HTN Magnesium Hydroxide (Milk Of Magnesia Liq*) 30 ml PO Q4H PRN PRN Reason: CONSTIPATION Pto: [Melatonin] 5 (Mg) 5 mg PO BEDTIME PRN PRN Reason: INSOMNIA Last Admin: 08/09/18 21:28 Dose: 5 mg Pto: Genteal Tears - (Eye Drops) 1 dose BOTH EYES DAILY PRN PRN Reason: DRY EYES Polyethylene Glycol/Electrolytes (Miralax*) 17 gm PO DAILY WITH MEAL REPLACED BY [facility] Last Admin: 08/12/18 08:58 Dose: 17 gm Rasagiline (Azilect (Nf)) 0.5 mg PO DAILY REPLACED BY [facility] Last Admin: 08/12/18 08:58 Dose: 0.5 mg Vital Signs 08/12/18 08/12/18 08/12/18 08:00 11:00 11:10 Temperature 97.8 F Pulse Rate 73 82 Respiratory 18 20 Rate Blood Pressure 156/88 111/93 (mmHg) O2 Sat by Pulse 98 Oximetry 08/12/18 08/12/18 08/12/18 15:57 16:11 19:50 Temperature 97.7 F 97.9 F Pulse Rate 60 84 63 Respiratory 20 16 Rate Blood Pressure 167/93 73/57 165/86 (mmHg) O2 Sat by Pulse 97 99 Oximetry 08/12/18 08/12/18 08/12/18 20:00 20:04 23:16 Temperature 97.9 F Pulse Rate 83 59 Respiratory 16 16 Rate Blood Pressure 82/61 178/79 (mmHg) O2 Sat by Pulse 97 Oximetry 08/13/18 03:56 Temperature 97.3 F Pulse Rate 62 Respiratory 16 Rate Blood Pressure 171/95 (mmHg) O2 Sat by Pulse 99 Oximetry Intake and Output Last 24 Hours 08/11/18 08/12/18 08/13/18 08/14/18 06:59 06:59 06:59 06:59 Intake Total 1520 3549 2625 Output Total 1025 550 Balance 495 2999 2625 Intake: IV Fluids 1913 1565 NS (0.9%) 191 1565 IVPB 0 NS (0.9%) 0 Oral 1520 1635 1060 Output: Urine 1025 550 Other: Estimated Void Large Medium # Bowel Movements 1 1 1 Estimated Stool Amount Medium Medium # Voids 1 1 2 Oxygen Devices in Use Now: None Neurology Exam: General: Well nourished, well developed, and in no acute distress HEENT: Normocephelic/healing abrasion noted to right orbit, sclera anicteric, mucous membranes moist Neck: Supple Chest: Clear to auscultation bilaterally Cardiovascular: Regular rate and rhythm without murmurs, rubs, gallops Abdomen: Soft, non-tender/non-distended Extremities: No clubbing, cyanosis, or edema Neurological Findings: Awake, alert, and oriented to person, place, and time. Speech: fluent without dysarthria, repetition intact Cranial Nerve: PERRL, EOM intact, VFF, no nystagmus, face symmetric bilaterally , facial sensation intact, hearing intact to finger rub bilaterally, palate elevates symmetrically, tongue midline, SCM and Trapezius 5/5, no dyskinesia noted Motor: 5/5 throughout, proximal and distal extremities x4 bulk normal, cogwheeling noted to the R>L, no drift Sensation: intact to LT to bilaterally upper and lower extremities Deep Tendon Reflex: 1+ symmetric in the upper/lower extremities, Babinski - down going Finger to nose intact, rapid alternating movements decreased worse on right than left, no head bobbing, dysdiadochokinesia noted with finger tapping, Gait: walking with walker, shuffling noted, turn en bloc, Result Diagrams: 08/09/18 05:19 08/12/18 06:12 Additional Lab and Data: . Microbiology and Other Data: . Assessment/Plan Assessment: 73 yr old male with pmh of parkinsons, orthostatic hypotension, nick, carotid disease, hld; who presented to ED due orthostatsis and frequent falls Dyskinesias improve with reduced sinemet. low dose fludrocortisone started for orthostatic hypotension. Supine blood pressures noted in 170's systolic, today am standing BP systolic 89, yesterday at 1600 standing systolic was 70's slight improvement, no symptoms reported, would continue with florinef now, encourage 8oz of v8 juice and po fluids, give time for the florinef to work, keep hob at 15 degrees when he sleeps, Parkinsons stable at this point with exception of continued orthostasis although slight improvement noted, would continue current dose of sinemet. dyskinesias of the head improved, cogwheeling noted to the right > left, mild shuffling continue PT efforts, continue florinef mild improvement noted, will need to be mindful of supine hypertension keep HOB 15 degrees when sleeping, Continue oob with caution given hx of falls and orthostasis, would recommend short term rehab, At this time neurology will sign off. Going forward again recommend continuing florinef, po fluid v8 juice, HOB 15 degrees at rest, Short term rehab, give florinef time to work, would not change PD medications, continue oob with caution, we need to see him back in clinic in 2 weeks times, I discussed the case with Dr Thomas he was in agreement.
[2018-08-13] MEDS: Polyethylene Glycol 3350* 17 GM PACKET PO SCH (09:04)
[2018-08-13] MEDS: Docusate CAP* 100 MG PO SCH ×2 (09:04→21:43)
[2018-08-13] MEDS: RASAGILINE 1 MG PO SCH (09:04)
[2018-08-13] MEDS: Cyanocobalamin TAB* 500 MCG PO SCH (09:04)
[2018-08-13] MEDS: Fludrocortisone Acetate TAB* 0.1 MG PO SCH (09:04)
[2018-08-13] MEDS: FLUoxetine CAP* 20 MG PO SCH (09:04)
--- NOTE | 2018-08-13 11:32 | PN ---
Subjective Date of Service: 08/13/18 Interval History: Patient reports he is feeling better; not experiencing dizziness when standing. Worked with PT this am and was able to walk w/o dizziness/lightheadedness which is an improvement Objective Active Medications: Acetaminophen (Tylenol Tab*) 650 mg PO Q4H PRN PRN Reason: FEVER/PAIN Carbidopa/Levodopa (Carbidopa-Levo Er 25-100 Tab) 2 tab PO 0600,1000,1400,1800 [facility] Last Admin: 08/13/18 09:04 Dose: 2 tab Cyanocobalamin (Vitamin B12 Tab*) 1,000 mcg PO DAILY [facility] Last Admin: 08/13/18 09:04 Dose: 1,000 mcg Docusate Sodium (Colace Cap*) 100 mg PO BID [facility] Last Admin: 08/13/18 09:04 Dose: Not Given Famotidine (Pepcid Tab*) 40 mg PO 2100 [facility] Last Admin: 08/12/18 21:48 Dose: 40 mg Finasteride (Proscar Tab*) 5 mg PO 1830 [facility] Last Admin: 08/12/18 17:47 Dose: 5 mg Fludrocortisone Acetate (Florinef Tab*) 0.1 mg PO DAILY [facility] Last Admin: 08/13/18 09:04 Dose: 0.1 mg Fluoxetine HCl (Prozac Cap*) 20 mg PO DAILY [facility] Last Admin: 08/13/18 09:04 Dose: 20 mg Heparin Sodium (Porcine) (Heparin Vial(*)) 5,000 units SUBCUT Q8HR [facility] Last Admin: 08/13/18 06:37 Dose: 5,000 units Hydralazine HCl (Apresoline Iv*) 5 mg IV SLOW PU Q6H PRN PRN Reason: HTN Magnesium Hydroxide (Milk Of Magnesia Liq*) 30 ml PO Q4H PRN PRN Reason: CONSTIPATION Pto: [Melatonin] 5 (Mg) 5 mg PO BEDTIME PRN PRN Reason: INSOMNIA Last Admin: 08/09/18 21:28 Dose: 5 mg Pto: Genteal Tears - (Eye Drops) 1 dose BOTH EYES DAILY PRN PRN Reason: DRY EYES Polyethylene Glycol/Electrolytes (Miralax*) 17 gm PO DAILY WITH MEAL [facility] Last Admin: 08/13/18 09:04 Dose: Not Given Rasagiline (Azilect (Nf)) 0.5 mg PO DAILY [facility] Last Admin: 08/13/18 09:04 Dose: 0.5 mg Vital Signs - 8 hr 08/13/18 08/13/18 08/13/18 03:56 07:14 08:00 Temperature 97.3 F 97.9 F Pulse Rate 62 80 Respiratory 16 16 18 Rate Blood Pressure 171/95 89/74 (mmHg) O2 Sat by Pulse 99 97 Oximetry Oxygen Devices in Use Now: None Appearance: A+O x3 sitting up in bed in NAD; parkinson like moovements noted Eyes: PERRLA Ears/Nose/Mouth/Throat: Mucous Membranes Moist Respiratory: Symmetrical Chest Expansion and Respiratory Effort, Clear to Auscultation Cardiovascular: NL Sounds; No Murmurs; No JVD, RRR, No Edema Abdominal: NL Sounds; No Tenderness; No Distention Extremities: No Edema, No Clubbing, Cyanosis Skin: No Rash or Ulcers, No Nodules or Sclerosis Neurological: Alert and Oriented x 3, - - strength 4/5 throughout; cogwheel noted R> L Lines/Tubes/Other Access: Clean, Dry and Intact Peripheral IV Nutrition: Taking PO's Result Diagrams: 08/09/18 05:19 08/12/18 06:12 Additional Lab and Data: . Microbiology and Other Data: . Assess/Plan/Problems-Billing Assessment: 73 yr old male with pmh of parkinsons, orthostatic hypotension, nick, carotid disease, hld; who presented to ED due orthostatsis and frequent falls - Patient Problems (1) Orthostatic hypotension Comment: - 08/09 Levadopa decreased from from 3 tabs QID to 2 tabs QID and Azilect decreased - Less dyskinesias noted - Dizziness resolved - Started on low-dose Florinef by Neuro on 08/12 - patient is improving; continues to have orthostatic BP when standing but now not symptomatic - PT walked patient this am and his BP increased and stablaized. There is a risk of the florinef causing hypertention - Neuro recommends when in bed HOB >15 degrees (2) Hypertension Comment: - Patient noted to be hypertensive when lying flat in ED, therefore, hydralazine PRN ordered and will be continued - must be used cautiously as it could cause worsening orthostatic hypotenstion - Keep HOB elevated when sleeping > 15 degrees (3) Falls frequently Comment: - Patient is a high fall risk given dx of parkinsons, recent orthostatsis, and multiple previous falls. - Personal and bed alarm in place - Per Neuro - should use wheelchair - Plan for PMRU rehab (4) Parkinson disease Comment: - Cont medication with above mentioned changes. - Patient currently resides at home with . May benefit from rehab. manager convention to discuss with - PT/OT consulting (5) Confusion Code(s): R41.0 - DISORIENTATION, UNSPECIFIED Comment: - Resolving - per patient is closer to baseline - Urine wnl. - Suspected secondary to parkinson's disease (6) Macrocytic anemia Comment: - Noted to be slightly macrocytic anemia - Vitamin B12 low and replacement ordered (7) DVT prophylaxis Comment: - SubQ Heparin Status and Disposition: Inpatient. Plan for PMRU tomorrow.
[2018-08-13] MEDS: Finasteride TAB* 5 MG PO SCH (18:29)
[2018-08-13] MEDS: Famotidine TAB* 20 MG PO SCH (21:42)
[2018-08-14] MEDS: LEVODOPA PO SCH ×2 (05:23→09:33)
[2018-08-14] MEDS: CARBIDOPA PO SCH ×2 (05:23→09:33)
[2018-08-14] MEDS: Heparin VIAL(*) 5000 UNITS/ML VIAL (FIVE THOUSAND) SUBCUT SCH (05:23)
[2018-08-14] MEDS: RASAGILINE 1 MG PO SCH (08:02)
[2018-08-14] MEDS: Fludrocortisone Acetate TAB* 0.1 MG PO SCH (08:02)
[2018-08-14] MEDS: FLUoxetine CAP* 20 MG PO SCH (08:02)
[2018-08-14] MEDS: Cyanocobalamin TAB* 500 MCG PO SCH (08:03)
[2018-08-14] MEDS: Polyethylene Glycol 3350* 17 GM PACKET PO SCH (08:03)
[2018-08-14] MEDS: Docusate CAP* 100 MG PO SCH (08:03)
--- NOTE | 2018-08-14 08:50 | DCNOTE ---
Subjective Date of Service: 08/14/18 Interval History: Patient reports he feels well today but didnt sleep well last night - is not sure why. He denies any dizziness when standing or changing positions. Objective Active Medications: Acetaminophen (Tylenol Tab*) 650 mg PO Q4H PRN PRN Reason: FEVER/PAIN Carbidopa/Levodopa (Carbidopa-Levo Er 25-100 Tab) 2 tab PO 0600,1000,1400,1800 [facility] Last Admin: 08/14/18 05:23 Dose: 2 tab Cyanocobalamin (Vitamin B12 Tab*) 1,000 mcg PO DAILY [facility] Last Admin: 08/14/18 08:03 Dose: 1,000 mcg Docusate Sodium (Colace Cap*) 100 mg PO BID [facility] Last Admin: 08/14/18 08:03 Dose: 100 mg Famotidine (Pepcid Tab*) 40 mg PO 2100 [facility] Last Admin: 08/13/18 21:42 Dose: 40 mg Finasteride (Proscar Tab*) 5 mg PO 1830 [facility] Last Admin: 08/13/18 18:29 Dose: 5 mg Fludrocortisone Acetate (Florinef Tab*) 0.1 mg PO DAILY [facility] Last Admin: 08/14/18 08:02 Dose: 0.1 mg Fluoxetine HCl (Prozac Cap*) 20 mg PO DAILY [facility] Last Admin: 08/14/18 08:02 Dose: 20 mg Heparin Sodium (Porcine) (Heparin Vial(*)) 5,000 units SUBCUT Q8HR [facility] Last Admin: 08/14/18 05:23 Dose: 5,000 units Hydralazine HCl (Apresoline Iv*) 5 mg IV SLOW PU Q6H PRN PRN Reason: HTN Magnesium Hydroxide (Milk Of Magnesia Liq*) 30 ml PO Q4H PRN PRN Reason: CONSTIPATION Pto: [Melatonin] 5 (Mg) 5 mg PO BEDTIME PRN PRN Reason: INSOMNIA Last Admin: 08/09/18 21:28 Dose: 5 mg Pto: Genteal Tears - (Eye Drops) 1 dose BOTH EYES DAILY PRN PRN Reason: DRY EYES Polyethylene Glycol/Electrolytes (Miralax*) 17 gm PO DAILY WITH MEAL [facility] Last Admin: 08/14/18 08:03 Dose: 17 gm Rasagiline (Azilect (Nf)) 0.5 mg PO DAILY [facility] Last Admin: 08/14/18 08:02 Dose: 0.5 mg Vital Signs - 8 hr 08/14/18 08/14/18 03:50 07:17 Temperature 98.4 F 97.9 F Pulse Rate 54 57 Respiratory 18 20 Rate Blood Pressure 144/80 144/91 (mmHg) O2 Sat by Pulse 99 99 Oximetry Oxygen Devices in Use Now: None Appearance: elderly male A+O x3 in NAD - parkinsons like movements Eyes: No Scleral Icterus Respiratory: Symmetrical Chest Expansion and Respiratory Effort, Clear to Auscultation Cardiovascular: NL Sounds; No Murmurs; No JVD, RRR, No Edema Abdominal: NL Sounds; No Tenderness; No Distention Extremities: No Edema, No Clubbing, Cyanosis Skin: No Rash or Ulcers, No Nodules or Sclerosis Neurological: Alert and Oriented x 3, NL Muscle Strength and Tone Lines/Tubes/Other Access: Clean, Dry and Intact Peripheral IV Nutrition: Taking PO's Result Diagrams: 08/09/18 05:19 08/12/18 06:12 Additional Lab and Data: . Microbiology and Other Data: . Assess/Plan/Problems-Billing Assessment: 73 yr old male with pmh of parkinsons, orthostatic hypotension, nick, carotid disease, hld; who presented to ED due orthostatsis and frequent falls - Patient Problems (1) Orthostatic hypotension Comment: - 08/09 Levadopa decreased from from 3 tabs QID to 2 tabs QID and Azilect decreased - Less dyskinesias noted - Dizziness resolved - Started on low-dose Florinef by Neuro on 08/12 - patient is improving; continues to have orthostatic BP when standing but now not symptomatic - Pt ambulating with thigh high TEDs. There is a risk of the florinef causing hypertention - Neuro recommends when in bed HOB >15 degrees (2) Hypertension Comment: - Patient noted to be hypertensive when lying flat in ED, therefore, hydralazine PRN ordered - must be used cautiously as it could cause worsening orthostatic hypotenstion - Keep HOB elevated when sleeping > 15 degrees (3) Falls frequently Comment: - Patient is a high fall risk given dx of parkinsons, recent orthostatsis, and multiple previous falls. - Personal and bed alarm in place - Per Neuro - should use wheelchair - Plan for PMRU rehab (4) Parkinson disease Comment: - Cont medication with above mentioned changes. - Patient currently resides at home with . May benefit from rehab. medical education manager to discuss with - PT/OT consulting (5) Confusion Code(s): R41.0 - DISORIENTATION, UNSPECIFIED Comment: - Resolved - Urine wnl. - Suspected secondary to parkinson's disease (6) Macrocytic anemia Comment: - Noted to be slightly macrocytic anemia - Vitamin B12 low and replacement ordered (7) DVT prophylaxis Comment: - SubQ Heparin Status and Disposition: Inpatient. Plan for PMRU today
[2018-08-14 09:11] VITALS: BP 68/50
--- NOTE | 2018-08-14 10:24 | DS ---
CC: Dr. Saab* DISCHARGE SUMMARY: DATE OF ADMISSION: 08/09/18 DATE OF DISCHARGE: 08/14/18 PROVIDER: Larissa Wong NP ATTENDING PHYSICIAN: Dr. Pedroza* (report dictated by Larissa Wong NP). PRIMARY CARE PROVIDER: Dr. Saab. NEUROLOGIST: Dr. Thomas. DISCHARGE DIAGNOSIS: Falls secondary to orthostatic hypotension secondary to Parkinson disease. PAST MEDICAL HISTORY: 1. Parkinson disease, status brain stimulator implanted in January 2016. 2. Obstructive sleep apnea, not on CPAP for the past year and half. 3. History of carotid disease. 4. Hyperlipidemia. 5. Impaired fasting glucose. 6. Allergic rhinitis. 7. Status post bilateral inguinal hernia repair and umbilical hernia repair. DISCHARGE MEDICATIONS: 1. Acetaminophen 600 mg p.o. q.4 hours p.r.n. 2. Carbidopa/levodopa ER 25/100 two tabs p.o. 6 a.m., 10 a.m., 2 p.m., and 6 p.m. 3. Vitamin B12 1000 mcg p.o. daily. 4. Colace 100 mg p.o. b.i.d. 5. Pepcid 40 mg p.o. at bedtime. 6. Proscar 5 mg p.o. at 1830. 7. Florinef 0.1 mg p.o. daily (new medication). 8. Prozac 20 mg p.o. daily. 9. MiraLAX 17 g p.o. daily with meals. 10. GenTeal Tears eye drops 1 drop both eyes daily p.r.n. 11. Melatonin 5 mg p.o. at bedtime p.r.n. 12. Azilect 0.5 mg p.o. daily. ALLERGIES: CIPROFLOXACIN, CLOPIDOGREL, MINOCYCLINE. CODE STATUS: Full code. HISTORY OF PRESENT ILLNESS AND HOSPITAL COURSE: Please see history and physical by Dr. Sarita Morton for full admission details, but in summary, this is a very pleasant 73-year-old male with advanced Parkinson's, who is status post brain stimulator implantation in 2015. He has had previous problems with orthostatic hypotension in the past and has been following for over a year, which has gotten more pronounced in the past several months. He was seen by Dr. Thomas the day of admission, who recommended he come to the hospital for evaluation as patient reported another episode where he stood, felt lightheaded , immediately fell down and hit his head. He was admitted to the hospitalist service due to his profound orthostatic hypotension. The patient was seen in consultation by neurologist, Dr. Snider. His Sinemet was reduced. It was noted his dyskinesias improved with reduced Sinemet. He was then seen by neurologist , Dr. Thomas, and neuro TELEPHONE APPOINTMENT CLERK, Josef Dowd, in the hospital and he was started on low-dose Florinef for his orthostatic hypotension. This patient is complicated due to supine blood pressures noted to be hypertensive systolically in the 150s to 170s; however, when he stands, drops to systolically in the 60s to 80s. Initially, the patient had been dizzy prior to starting the Florinef. His orthostatics were monitored closely every day. However, after the Florinef was started, the patient did report he had a resolution of his dizziness when standing. He also has been wearing thigh high Marc stockings, which has helped as well. Neurology recommends when he is in bed, the head of bed should be elevated greater than 15 degrees or more. The patient was noted on admission to have more confusion than at his baseline, unclear etiology, however, this has resolved. He had no found infectious etiology. The patient was found to have a slight macrocytic anemia with a low B12 level of 175 and he was started on oral B12 supplementation. The patient was stable for discharge to [facility] for rehab. Depending on the patient's course, Neurology does think it is a strong possibility the patient may need to be wheelchair bound, but this will depend on his course of therapy, his symptoms, and his orthostatic hypotension. This is day 3 of the low-dose Florinef, in which the patient feels that it is improving his symptoms. Continue to monitor blood pressure closely. DISCHARGE PLAN: 1. Discharge to [facility]. 2. Follow up with Neurology, Dr. Thomas, in 2 weeks. 3. Continue to monitor blood pressure and orthostatics closely. 4. Neuro also recommended encouraging p.o. fluid. TIME SPENT: Approximately 60 minutes was spent on this discharge. LARISSA WONG NP [id number]/[facility] #: [id number] LISA
== END 2018-08-14 10:10 | DRG 312 ==
LOC: ED 13:34 → MEDTELE 20:15 → OBSVTOIN 08-09 16:16
PROVIDERS: ADMIT Internal Medicine; ATTEND Student in an Organized Health Care Education/Training Program
DX: I95.1 Orthostatic hypotension (principal); G20 Parkinson's disease; G47.33 Obstructive sleep apnea (adult) (pediatric); I10 Essential (primary) hypertension; D51.8 Other vitamin B12 deficiency anemias; W19.XXXA Unspecified fall, initial encounter; Y92.9 Unspecified place or not applicable; N40.0 Benign prostatic hyperplasia without lower urinary tract symptoms; S01.81XA Laceration without foreign body of other part of head, initial encounter; E78.00 Pure hypercholesterolemia, unspecified; I45.10 Unspecified right bundle-branch block; R73.01 Impaired fasting glucose; J30.9 Allergic rhinitis, unspecified; Z88.1 Allergy status to other antibiotic agents; Z88.8 Allergy status to other drugs, medicaments and biological substances; Z86.73 Personal history of transient ischemic attack (TIA), and cerebral infarction without residual deficits; Z85.828 Personal history of other malignant neoplasm of skin; Z82.49 Family history of ischemic heart disease and other diseases of the circulatory system; Z72.89 Other problems related to lifestyle; Z87.891 Personal history of nicotine dependence; Z96.89 Presence of other specified functional implants; Z82.3 Family history of stroke
CPT/HCPCS: 36415; 70450; 71045; 80048; 80053; 81003; 82607; 82746; 83605; 83735; 84443; 84484; 85025; 93005; 99284; A9270-GY; G8978-GP-CL; G8979-GP-CJ; G8987-GO-CM; G8988-GO-CI; J1644; J3420

== ENCOUNTER 2018-08-14 07:09 | Inpatient (IN) | payer MEDICARE, BC ==
[2018-08-14] MEDS ORDERED: Acetaminophen TAB* 325 MG PO PRN (10:38)
[2018-08-14] MEDS ORDERED: Magnesium Hydroxide LIQ* 30 ML UDC PO PRN (10:38)
[2018-08-14] MEDS: Heparin VIAL(*) 5000 UNITS/ML VIAL (FIVE THOUSAND) SUBCUT SCH (16:10)
[2018-08-14] MEDS: CARBIDOPA PO SCH ×2 (16:11→19:49)
[2018-08-14] MEDS: LEVODOPA PO SCH ×2 (16:11→19:49)
[2018-08-14] MEDS: Finasteride TAB* 5 MG PO SCH (19:48)
--- NOTE | 2018-08-14 20:11 | HP ---
ADMISSION HISTORY AND PHYSICAL: DATE OF ADMISSION: 08/14/18 REASON FOR ADMISSION: Parkinson's disease; Shy-Drager syndrome. HISTORY OF PRESENT ILLNESS: Chris Wallis is 73-year-old male. He states he was diagnosed with Parkinson's disease around 7 years ago. He had seen Dr. Alaniz locally. He had a lot of difficulties with dyskinesias, which were preventing him from doing activities of daily living such as reading or eating. He was sent to another neurologist at the [facility] Dr. Donohue. The patient had a deep brain stimulator placed in January 2016. This helped a lot with his dyskinesias. The patient has been having difficulties with falling. This started in the summer of 2017. Over the past 3 months he was falling about 3 times a week. The patient also was having some increased confusion. He reported this to his neurologist, Dr. Thomas. The patient was referred to the emergency room for possible postconcussion syndrome. The patient was admitted to the hospital. A CAT scan of his brain without contrast with no finding of intracranial pathology. He is unable to have an MRI because of his deep brain stimulator. The patient was evaluated by Dr. Snider from Neurology. Dr. Snider felt that his falls had increased since his Sinemet dose was increased and recommended decreasing the Sinemet dose and considering eliminating his Flomax. The patient also was given B12 injections and the patient was felt to have physical therapy and occupational therapy needs. He is now being admitted for inpatient rehab, so he may return to independent living. PAST MEDICAL HISTORY: Includes sleep apnea. He also has allergic rhinitis and has had bilateral inguinal hernia repairs. MEDICATIONS: Current medications include: 1. Sinemet ER and he takes 25/100 two tablets at 6 a.m., 10 a.m., 2 p.m. and 6 p.m. 2. He is on Pepcid 40 mg at bedtime. 3. Proscar. 4. Florinef was started on the acute service. 5. Prozac 20 mg. 6. He is on Azilect 0.5 mg daily. 7. Pepcid 40 mg at bedtime. 8. He also is on heparin for DVT prophylaxis. ALLERGIES: The patient has allergies to CIPRO, PLAVIX, and MINOCYCLINE. SOCIAL HISTORY: The patient is a nonsmoker. He has a glass of wine daily and often a whiskey 2 or 3 times a week. He lives with his [place]. 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 REVIEW OF SYSTEMS: No current shortness of breath or chest pain. PHYSICAL EXAMINATION VITAL SIGNS: The patient's temperature is 97.6, blood pressure is 127/89, pulse 67, respirations 18. HEENT: Extraocular movements are intact. Tongue is midline. NECK: Supple. LUNGS: Sounded clear to auscultation bilaterally. CHEST: His deep brain stimulator is seen in his left chest. HEART: Sounds are regular. S1 and S2 audible. ABDOMEN: Soft and nontender. EXTREMITIES: He had a resting tremor in his upper extremities, slightly increased tone in upper and lower extremities. Peripheral pulses were intact. NEUROLOGIC: The patient was awake, alert, and oriented. Muscle strength appeared to be 4+/5 throughout. FUNCTIONAL EXAM: The patient stands up with contact guard. ASSESSMENT: 1. Parkinson's disease. 2. 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 PLAN: We are going to integrate him into a comprehensive and therapeutic rehab program with the following goals. 1. Physical therapy will work with the patient. They are going to work on partial transfer training, ambulation training with a walker 2.. Occupational Therapy. We will see the patient work on his activities of daily living including toileting and toilet transfers. 3. Continue heparin for DVT prophylaxis. 4. Continue Florinef for orthostatic hypotension. 5. We will continue to hold his Flomax. We will monitor any difficulties urinating. 6. We will monitor his supine blood pressures as well. 7. Continue Sinemet and Azilect for his Parkinson's disease. 8. Social service to be closely involved to make sure any services and equipment that patient requires in place prior to discharge. 9. Family training as appropriate. 10. Home with appropriate services. ESTIMATED LENGTH OF STAY: 1 week. [id number]/[facility] #: [id number] LISA
[2018-08-14] MEDS: Famotidine TAB* 20 MG PO SCH (21:54)
[2018-08-14] MEDS: Docusate CAP* 100 MG PO SCH (21:54)
[2018-08-14] MEDS: Senna TAB PO SCH (21:54)
[2018-08-15] MEDS: Heparin VIAL(*) 5000 UNITS/ML VIAL (FIVE THOUSAND) SUBCUT SCH ×4 (00:10→22:19)
[2018-08-15] MEDS: CARBIDOPA PO SCH ×4 (06:12→17:17)
[2018-08-15] MEDS: LEVODOPA PO SCH ×4 (06:12→17:17)
[2018-08-15] MEDS: Fludrocortisone Acetate TAB* 0.1 MG PO SCH (10:55)
[2018-08-15] MEDS: Cyanocobalamin TAB* 500 MCG PO SCH (10:55)
[2018-08-15] MEDS: RASAGILINE 1 MG PO SCH (10:55)
[2018-08-15] MEDS: FLUoxetine CAP* 20 MG PO SCH (10:55)
[2018-08-15] MEDS: Docusate CAP* 100 MG PO SCH ×2 (10:55→19:47)
[2018-08-15] MEDS: Finasteride TAB* 5 MG PO SCH (17:17)
[2018-08-15] MEDS: Senna TAB PO SCH (19:47)
[2018-08-15] MEDS: Famotidine TAB* 20 MG PO SCH (19:47)
--- NOTE | 2018-08-15 20:21 | PN ---
Progress Note Date of Service: 08/15/18 Note: YARON OJEDA JR was visited. Therapy notes read and reviewed. He is doing well, got a little dizzy today. Will ask for daily orthostatics. Has no complaints otherwise. Current Medications: Active Medications Generic Name Dose Route Start Last Admin Trade Name Freq PRN Reason Stop Dose Admin Acetaminophen 650 mg 08/14/18 10:38 Tylenol Tab* PO Q6H PRN FEVER > 101 Carbidopa/Levodopa 2 tab 08/14/18 14:00 08/15/18 17:17 Carbidopa-Levo Er 25-100 Tab PO 2 tab 0600,1000,1400,1800 JACLYN Administration Cyanocobalamin 1,000 mcg 08/15/18 09:00 08/15/18 10:55 Vitamin B12 Tab* PO 1,000 mcg DAILY JACLYN Administration Docusate Sodium 100 mg 08/14/18 21:00 08/15/18 19:47 Colace Cap* PO 100 mg BID JACLYN Administration Famotidine 40 mg 08/14/18 21:00 08/15/18 19:47 Pepcid Tab* PO 40 mg BEDTIME JACLYN Administration Finasteride 5 mg 08/14/18 18:30 08/15/18 17:17 Proscar Tab* PO 5 mg 1830 JACLYN Administration Fludrocortisone Acetate 0.1 mg 08/15/18 09:00 08/15/18 10:55 Florinef Tab* PO 0.1 mg DAILY JACLYN Administration Fluoxetine HCl 20 mg 08/15/18 09:00 08/15/18 10:55 Prozac Cap* PO 20 mg DAILY JACLYN Administration Heparin Sodium (Porcine) 5,000 units 08/14/18 14:00 08/15/18 14:01 Heparin Vial(*) SUBCUT 5,000 units Q8HR JACLYN Administration Magnesium Hydroxide 30 ml 08/14/18 10:38 Milk Of Magnesia Liq* PO Q6H PRN CONSTIPATION Rasagiline 0.5 mg 08/15/18 09:00 08/15/18 10:55 Azilect (Nf) PO 0.5 mg DAILY JACLYN Administration Senna 2 tab 08/14/18 21:00 08/15/18 19:47 Senokot Tab* PO 2 tab BEDTIME JACLYN Administration Vital Signs: Vital Signs Temp Pulse Resp BP Pulse Ox 97.9 F 59 22 164/87 97 08/15/18 16:23 08/15/18 16:23 08/15/18 16:23 08/15/18 16:23 08/15/18 18:10 Exam: GENERAL: No distress LUNGS: Clear trung HEART: Reg rhythm ABDOMEN: Soft, +BS EXTREMITIES: Resting tremor, slightly increased tone NEUROLOGIC: Resting tremor. Sensation intact. A&O. Muscle strength / Assessment/Plan: 1. Parkinson's Disease: Has DBS. Sinemet/Azilect 2. Shy-Drager/Orthostatic Hypotension: Florinef. Elevate HOB 3. Depression: Prozac 4. BPH: Proscar. Holding Flomax due to orthostasis 5. DVT Prophylaxis: Heparin S/Q 6. Advance Directives: Full code 08/15/18 20:19 08/15/18 20:20
[2018-08-16 05:28] LABS: ABS Basophils 0.1 10^3/ul (0-0.2); ABS Eosinophils 0.1 10^3/ul (0-0.6); ABS Lymphocytes 1.6 10^3/ul (1.0-4.8); ABS Monocytes 0.5 10^3/ul (0-0.8); ABS Neutrophils 2.6 10^3/ul (1.5-7.7); Eosinophil % 1.9 %; Hematocrit 42 % (42-52); Hemoglobin 14.2 g/dL (14.0-18.0); Lymphocyte % 33.6 %; Mean Corpuscular HGB Conc 34 g/dL (31-36); Mean Corpuscular Hemoglobin 33 pg (27-31); Mean Corpuscular Volume 98 fL (80-94); Mean Platelet Volume 8.6 fL (7.4-10.4); Nucleated Red Blood Cells % 0.1; Platelet Count 171 10^3/uL (150-450); Red Blood Count 4.32 10^6 /uL (4.18-5.48); Red Cell Distribution Width 13 % (10.5-15); White Blood Count 4.9 10^3/uL (3.5-10.8)
[2018-08-16] MEDS: CARBIDOPA PO SCH ×4 (05:31→17:58)
[2018-08-16] MEDS: LEVODOPA PO SCH ×4 (05:31→17:58)
[2018-08-16] MEDS: Heparin VIAL(*) 5000 UNITS/ML VIAL (FIVE THOUSAND) SUBCUT SCH ×3 (05:31→21:40)
[2018-08-16 05:48] LABS: Albumin 3.7 g/dL (3.2-5.2); Albumin/Globulin Ratio 1.7 (1-3); BUN/Creatinine Ratio 22.8 (8-20); Calcium 8.9 mg/dL (8.6-10.3); EGFR African American 116.3 (>60); EGFR Non-African American 96.1 (>60); Globulin 2.2 g/dL (2-4); Potassium 3.9 mmol/L (3.5-5.0); Total Bilirubin 0.7 mg/dL (0.2-1.0); Total Protein 5.9 g/dL (6.4-8.9)
[2018-08-16] MEDS: RASAGILINE 1 MG PO SCH (08:53)
[2018-08-16] MEDS: Docusate CAP* 100 MG PO SCH ×2 (08:54→20:50)
[2018-08-16] MEDS: Cyanocobalamin TAB* 500 MCG PO SCH (08:54)
[2018-08-16] MEDS: Fludrocortisone Acetate TAB* 0.1 MG PO SCH (08:54)
[2018-08-16] MEDS: FLUoxetine CAP* 20 MG PO SCH (08:54)
--- NOTE | 2018-08-16 11:01 | PN ---
Progress Note Date of Service: 08/16/18 Note: YARON OJEDA JR was visited. Nursing and therapy notes read and reviewed. No chest pain, shortness of breath or abdominal pain. Current Medications: Active Medications Generic Name Dose Route Start Last Admin Trade Name Freq PRN Reason Stop Dose Admin Acetaminophen 650 mg 08/14/18 10:38 Tylenol Tab* PO Q6H PRN FEVER > 101 Carbidopa/Levodopa 2 tab 08/14/18 14:00 08/16/18 10:09 Carbidopa-Levo Er 25-100 Tab PO 2 tab 0600,1000,1400,1800 JACLYN Administration Cyanocobalamin 1,000 mcg 08/15/18 09:00 08/16/18 08:54 Vitamin B12 Tab* PO 1,000 mcg DAILY JACLYN Administration Docusate Sodium 100 mg 08/14/18 21:00 08/16/18 08:54 Colace Cap* PO 100 mg BID JACLYN Administration Famotidine 40 mg 08/14/18 21:00 08/15/18 19:47 Pepcid Tab* PO 40 mg BEDTIME JACLYN Administration Finasteride 5 mg 08/14/18 18:30 08/15/18 17:17 Proscar Tab* PO 5 mg 1830 JACLYN Administration Fludrocortisone Acetate 0.1 mg 08/15/18 09:00 08/16/18 08:54 Florinef Tab* PO 0.1 mg DAILY JACLYN Administration Fluoxetine HCl 20 mg 08/15/18 09:00 08/16/18 08:54 Prozac Cap* PO 20 mg DAILY JACLYN Administration Heparin Sodium (Porcine) 5,000 units 08/14/18 14:00 08/16/18 05:31 Heparin Vial(*) SUBCUT 5,000 units Q8HR JACLYN Administration Magnesium Hydroxide 30 ml 08/14/18 10:38 Milk Of Magnesia Liq* PO Q6H PRN CONSTIPATION Rasagiline 0.5 mg 08/15/18 09:00 08/16/18 08:53 Azilect (Nf) PO 0.5 mg DAILY JACLYN Administration Senna 2 tab 08/14/18 21:00 08/15/18 19:47 Senokot Tab* PO 2 tab BEDTIME JACLYN Administration Vital Signs: Vital Signs 08/15/18 08/15/18 08/15/18 16:23 18:10 23:40 Temperature 97.9 F Pulse Rate 59 Respiratory 22 Rate Blood Pressure 164/87 (mmHg) O2 Sat by Pulse 97 97 97 Oximetry 08/16/18 08/16/18 08/16/18 00:00 05:45 06:00 Temperature 97.7 F 97.7 F Pulse Rate 64 60 Respiratory 16 24 Rate Blood Pressure 148/78 156/80 (mmHg) O2 Sat by Pulse 97 98 Oximetry 08/16/18 08/16/18 10:24 10:25 Temperature Pulse Rate Respiratory Rate Blood Pressure 160/90 86/65 (mmHg) O2 Sat by Pulse Oximetry Lab Results: Laboratory Results - last 24 hr 08/16/18 08/16/18 05:14 05:14 WBC 4.9 RBC 4.32 Hgb 14.2 Hct 42 MCV 98 H MCH 33 H MCHC 34 RDW 13 Plt Count 171 MPV 8.6 Neut % (Auto) 53.2 Lymph % (Auto) 33.6 [place] % (Auto) 10.1 Eos % (Auto) 1.9 Baso % (Auto) 1.2 Absolute Neuts (auto) 2.6 Absolute Lymphs (auto) 1.6 Absolute Monos (auto) 0.5 Absolute Eos (auto) 0.1 Absolute Basos (auto) 0.1 Absolute Nucleated RBC 0.0 Nucleated RBC % 0.1 Sodium 139 Potassium 3.9 Chloride 104 Carbon Dioxide 29 Anion Gap 6 BUN 18 Creatinine 0.79 Est GFR ( Amer) 116.3 Est GFR (Non-Af Amer) 96.1 BUN/Creatinine Ratio 22.8 H Glucose 95 Calcium 8.9 Total Bilirubin 0.70 AST 20 ALT 20 Alkaline Phosphatase 93 Total Protein 5.9 L Albumin 3.7 Globulin 2.2 Albumin/Globulin Ratio 1.7 Exam: GENERAL: No acute distress. Alert and appropriate. LUNGS: Clear to auscultation bilaterally HEART: Regular rate and rhythm ABDOMEN: +bowel sounds, soft, non-tender, non-distended EXTREMITIES: Resting tremor, slightly increased tone. No edema NEUROLOGIC: Resting tremor. Sensation intact. Muscle strength 5/5 BUE and BLE Assessment/Plan: 1. Parkinson's Disease: Has DBS. Sinemet/Azilect 2. Shy-Drager/Orthostatic Hypotension: Florinef. Elevate HOB 3. Depression: Prozac 4. BPH: Proscar. Holding Flomax due to orthostasis 5. DVT Prophylaxis: Heparin S/Q 6. Advance Directives: Full code 7. Estimated LOS: IPOC today. 08/16/18 11:01
--- NOTE | 2018-08-16 12:39 | PMRUTEAM ---
PMRU: Team Meeting Current Status: Nursing: Current Status Skin Deviations [No skin Other issues] Skin Deviation Description [No none skin issues] Physical Therapy: Current Status Bed Mobility Assistance Supervision Transfer Mobility Assistance Supervision,Contact Guard Assist Transfer/Bed Mobility Rolling Walker Recommended Devices Ambulation Assistance Contact Guard Assist Ambulation Assistive Devices Rolling Walker Number of Feet Patient 300x3 Ambulated Stairs Assistance contact guard Stairs Recommended Devices Two Rails Number of Stairs 12 Occupational Therapy: Current Status Upper Body Dressing Independent,Supervision Lower Body Dressing Ind with Adaptive Equip,Supervision Bathing Ind with Adaptive Equip,Supervision Toileting Ind with Adaptive Equip,Supervision Toilet Transfer Ind with Adaptive Equip,Supervision Shower Transfer Supervision Eating Independent Rec Therapy: Current Status Summary of Assessment and Pt. was open to conversation - engaged and Clinical Impression cooperative throughout. Pt. identified with numerous interests and involvement in them prior to admission. Pt. states he main barrier is his declining physical health the past 4 months. Treatment Goals Pt. will engage in leisure activities while on the unit. Treatment Plan Provide recreation therapy services and encourage involvement. Social Work: Current Status Discharge Plan return home with home care svs and family support Potential for Family Training pt's is involved and supportive Anticipated Discharge Home Destination Discharge With home care svs and family support Goals: Physical Therapy: Updated Goals Independent transfers, ambulation with walker and 10 stairs with 1-2 rails Occupational Therapy: Initial Goals Goals to be Completed in (Days 3-5 ) Upper Body Bathing Routine Independent Lower Body Bathing Routine Modified Independent with Upper Body Dressing Routine Independent Lower Body Dressing Routine Modified Independent with Toilet Hygeine and Clothing Modified Independent with Management Routine Toilet Transfer Routine Modified Independent with Step-In Shower Transfer Supervision/Set Up Routine Functional Transfers for ADL Modified Independent with Grooming Routine Independent Feeding Routine Independent Social Work: Goals Discharge Plan return home with home care svs and family support Potential for Family Training pt's is involved and supportive Anticipated Discharge Home Destination Discharge With home care svs and family support Care Plan: Care Plan ADL's - Improve/Maintain Start: 08/15/18 15:45 Freq: DAILY Status: Active Target: Protocol: Activity Type Activity Date Activity User E-Sign Co-Sign Detail Recorded Client Recorded Date Recorded By Document 08/15/18 15:46 [id number] 08/15/18 15:46 [id number] 08/15/18 15:46 PMRU Outcome: ADL's/ADL Transfers Orders/Interventions Occupational Therapy Evaluation & Treatment Communication Tool in Patient Room Patient to receive OT 5x/wk for 60-120 Therex min/day Self Care Management Group Therapy UE/LE ADL's with Assist Yes: mod I ADL Transfers with Assist Yes: mod I Toileting: Transfers,Clothing Management Yes: mod I ,Hygeine w/Assist Light Kitchen/Laundry w/Assist No Progression Toward Outcome/Goals Progressing Outcome/Goals Met Pt is nearing achievemnt of OT goals. Pt has never had a LOB or c/o dizziness with marketing copywriter during ADL. His BP was 133/86 at end of session. Biggest risk for falls is during pivots/ turns. Cardiovascular- Improve/Maintain Start: 08/14/18 11:58 Freq: QSHIFT Status: Active Target: Protocol: Activity Type Activity Date Activity User E-Sign Co-Sign Detail Recorded Client Recorded Date Recorded By Document 08/16/18 08:00 [id number] 08/16/18 10:47 [id number] 08/16/18 08:00 PMRU Outcome: Cardiovascular Vital Signs q Shift for 48hrs Then BID Yes Daily Weight Ordered No Current Cardiovascular Outcome/Goal Maintain/ Achieve Baseline HR, BP , Perfusion Maintain/ Improve Perfusion Free of Abnormal Cardiac Symptoms Progression Toward Outcome/Goal Progressing DVT Prophylaxis- Improve/Maintain Start: 08/14/18 11:58 Freq: QSHIFT Status: Active Target: Protocol: Activity Type Activity Date Activity User E-Sign Co-Sign Detail Recorded Client Recorded Date Recorded By Document 08/16/18 08:00 [id number] 08/16/18 10:47 [id number] 08/16/18 08:00 PMRU Outcome: DVT Prophylaxis Outcome/Goals Remains Free of DVT Complies with DVT Prophylaxis /Treatment Demonstrates Knowledge of DVT Prevention/ Treatment TEDS Stockings on Every AM, Off at HS Progression Toward Outcome/Goals Progressing Discharge Planning - Improve/Maintain Start: 08/14/18 11:58 Freq: DAILY Status: Active Target: Protocol: Activity Type Activity Date Activity User E-Sign Co-Sign Detail Recorded Client Recorded Date Recorded By Document 08/16/18 01:00 [id number] 08/16/18 01:42 [id number] 08/16/18 01:00 PMRU Outcome: Discharge Planning Update Patient Family No Outcome/Goals Demonstrates Understanding of Discharge Plan Education-Improve/Maintain Start: 08/14/18 11:58 Freq: QSHIFT Status: Active Target: Protocol: Activity Type Activity Date Activity User E-Sign Co-Sign Detail Recorded Client Recorded Date Recorded By Document 08/16/18 08:00 [id number] 08/16/18 10:47 [id number] 08/16/18 08:00 PMRU Outcome: Education Outcome/Goals Demonstrate/ Verbalize Understanding of Written Discharge Instructions Demonstrates Skills Encourage Questions Progression Toward Outcome/Goals Progressing /GI-Improve/Maintain Start: 08/14/18 11:58 Freq: QSHIFT Status: Active Target: Protocol: Activity Type Activity Date Activity User E-Sign Co-Sign Detail Recorded Client Recorded Date Recorded By Document 08/16/18 08:00 [id number] [id number] 08/16/18 10:47 [id number] 08/16/18 08:00 PMRU Outcome: Genitourinary/ Gastrointestinal Genitourinary- Outcome/Goals Maintain/ Achieve Urinary Continence Remain Free of Hospital- Acquired UTI Gastrointestinal-Outcome/Goals Maintain/ Achieve Bowel Regularity in Accordance with Pt's Baseline Prevent Constipation Laxatives as Ordered Progression Toward Outcome/Goals - Progressing Progression Toward Outcome/Goals - GI Progressing Medication Administration Start: 08/14/18 11:58 Freq: QSHIFT Status: Active Target: Protocol: Activity Type Activity Date Activity User E-Sign Co-Sign Detail Recorded Client Recorded Date Recorded By Document 08/16/18 08:00 [id number] [id number] 08/16/18 10:47 [id number] 08/16/18 08:00 PMRU Outcome: Medication Administration Assess Patient Knowledge/Teach Med Yes Education for all Meds Outcome/Goals Family/ Caregiver Administer Medications at Home Demonstrates Understanding Progression Towards Outcome/Goals Progressing Is Patient Going Home on Lovenox? No Neurological- Improve/Maintain Start: 08/14/18 11:58 Freq: QSHIFT Status: Active Target: Protocol: Activity Type Activity Date Activity User E-Sign Co-Sign Detail Recorded Client Recorded Date Recorded By Document 08/16/18 08:00 [id number] 08/16/18 10:47 [id number] 08/16/18 08:00 PMRU Outcome: Neurological Weakness/Aphasia Weakness Weakness/Aphasia Comment generalized weakness Outcome/Goals Improve Neurological Status Prevent Avoidable Neurological Decline Maintain/ Improve Strength/ROM Progression Toward Outcome/Goals Progressing Safety- Improve/Maintain Start: 08/14/18 11:58 Freq: QSHIFT Status: Active Target: Protocol: Activity Type Activity Date Activity User E-Sign Co-Sign Detail Recorded Client Recorded Date Recorded By Document 08/16/18 08:00 [id number] 08/16/18 10:47 [id number] 08/16/18 08:00 PMRU Outcome: Safety Outcome/Goals Remain Free of Injury or Harm Cooperates with Safety Measures for Least Restrictive Environment Prevent Falls/ Injury Progression Toward Outcome/Goals Progressing Medicine Note: Length of Stay: [5 days] Anticipated Discharge Destination: Home Tentative Discharge Date: [08/21/18] Discharged to: [home with family]
[2018-08-16] MEDS: Finasteride TAB* 5 MG PO SCH (17:58)
[2018-08-16] MEDS: Famotidine TAB* 20 MG PO SCH (20:50)
[2018-08-16] MEDS: Senna TAB PO SCH (20:50)
[2018-08-17] MEDS: CARBIDOPA PO SCH ×4 (05:32→18:15)
[2018-08-17] MEDS: Heparin VIAL(*) 5000 UNITS/ML VIAL (FIVE THOUSAND) SUBCUT SCH ×3 (05:32→21:22)
[2018-08-17] MEDS: LEVODOPA PO SCH ×4 (05:32→18:15)
[2018-08-17] MEDS: Cyanocobalamin TAB* 500 MCG PO SCH (08:42)
[2018-08-17] MEDS: RASAGILINE 1 MG PO SCH (08:43)
[2018-08-17] MEDS: Fludrocortisone Acetate TAB* 0.1 MG PO SCH (08:43)
[2018-08-17] MEDS: Docusate CAP* 100 MG PO SCH ×2 (08:43→21:21)
[2018-08-17] MEDS: FLUoxetine CAP* 20 MG PO SCH (08:43)
--- NOTE | 2018-08-17 10:49 | PN ---
Progress Note Date of Service: 08/17/18 Note: YARON OJEDA JR was visited. Nursing and therapy notes read and reviewed. No chest pain, shortness of breath or abdominal pain. His brought in a rollator walker and trekking poles to try out while here. Current Medications: Active Medications Generic Name Dose Route Start Last Admin Trade Name Freq PRN Reason Stop Dose Admin Acetaminophen 650 mg 08/14/18 10:38 Tylenol Tab* PO Q6H PRN FEVER > 101 Carbidopa/Levodopa 2 tab 08/14/18 14:00 08/17/18 10:25 Carbidopa-Levo Er 25-100 Tab PO 2 tab 0600,1000,1400,1800 JACLYN Administration Cyanocobalamin 1,000 mcg 08/15/18 09:00 08/17/18 08:42 Vitamin B12 Tab* PO 1,000 mcg DAILY JACLYN Administration Docusate Sodium 100 mg 08/14/18 21:00 08/17/18 08:43 Colace Cap* PO 100 mg BID JACLYN Administration Famotidine 40 mg 08/14/18 21:00 08/16/18 20:50 Pepcid Tab* PO 40 mg BEDTIME JACLYN Administration Finasteride 5 mg 08/14/18 18:30 08/16/18 17:58 Proscar Tab* PO 5 mg 1830 JACLYN Administration Fludrocortisone Acetate 0.1 mg 08/15/18 09:00 08/17/18 08:43 Florinef Tab* PO 0.1 mg DAILY JACLYN Administration Fluoxetine HCl 20 mg 08/15/18 09:00 08/17/18 08:43 Prozac Cap* PO 20 mg DAILY JACLYN Administration Heparin Sodium (Porcine) 5,000 units 08/14/18 14:00 08/17/18 05:32 Heparin Vial(*) SUBCUT 5,000 units Q8HR JACLYN Administration Magnesium Hydroxide 30 ml 08/14/18 10:38 Milk Of Magnesia Liq* PO Q6H PRN CONSTIPATION Rasagiline 0.5 mg 08/15/18 09:00 08/17/18 08:43 Azilect (Nf) PO 0.5 mg DAILY JACLYN Administration Senna 2 tab 08/14/18 21:00 08/16/18 20:50 Senokot Tab* PO 2 tab BEDTIME JACLYN Administration Vital Signs: Vital Signs 08/16/18 08/16/18 08/16/18 15:59 16:00 19:39 Temperature 97.8 F 97.8 F Pulse Rate 59 59 Respiratory 16 16 Rate Blood Pressure 163/87 163/87 (mmHg) O2 Sat by Pulse 95 95 95 Oximetry 08/16/18 08/17/18 08/17/18 23:25 05:32 05:52 Temperature 98.3 F Pulse Rate 58 Respiratory 18 18 Rate Blood Pressure 170/74 (mmHg) O2 Sat by Pulse 98 Oximetry 08/17/18 08/17/18 08/17/18 09:48 09:53 09:59 Temperature Pulse Rate 64 77 86 Respiratory Rate Blood Pressure 152/85 103/72 79/64 (mmHg) O2 Sat by Pulse Oximetry Exam: GENERAL: No acute distress. Alert and appropriate. LUNGS: Clear to auscultation bilaterally HEART: Regular rate and rhythm ABDOMEN: +bowel sounds, soft, non-tender, non-distended EXTREMITIES: Resting tremor, slightly increased tone. No edema NEUROLOGIC: Resting tremor. Sensation intact. Muscle strength 5/5 BUE and BLE Assessment/Plan: 1. Parkinson's Disease: Has DBS. Sinemet/Azilect 2. Shy-Drager/Orthostatic Hypotension: Florinef. Elevate HOB. Despite low BPs standing he is not symptomatic last 2 days. 3. Depression: Prozac 4. BPH: Proscar. Holding Flomax due to orthostasis 5. DVT Prophylaxis: Heparin S/Q 6. Advance Directives: Full code 7. Estimated LOS: anticipate d/c 08/21/18 08/17/18 10:47
[2018-08-17] MEDS: Finasteride TAB* 5 MG PO SCH (18:16)
[2018-08-17] MEDS: Famotidine TAB* 20 MG PO SCH (21:19)
[2018-08-17] MEDS: Senna TAB PO SCH (21:20)
[2018-08-18] MEDS: LEVODOPA PO SCH ×4 (04:45→18:43)
[2018-08-18] MEDS: CARBIDOPA PO SCH ×4 (04:45→18:43)
[2018-08-18] MEDS: Heparin VIAL(*) 5000 UNITS/ML VIAL (FIVE THOUSAND) SUBCUT SCH ×3 (04:45→21:42)
[2018-08-18] MEDS ORDERED: Polyethylene Glycol 3350* 17 GM PACKET PO PRN (08:53)
[2018-08-18] MEDS ORDERED: Bisacodyl SUPP* 10 MG SUPP PR PRN (08:54)
[2018-08-18] MEDS: FLUoxetine CAP* 20 MG PO SCH (09:01)
[2018-08-18] MEDS: Docusate CAP* 100 MG PO SCH ×2 (09:01→21:40)
[2018-08-18] MEDS: Cyanocobalamin TAB* 500 MCG PO SCH (09:01)
[2018-08-18] MEDS: Fludrocortisone Acetate TAB* 0.1 MG PO SCH (09:01)
[2018-08-18] MEDS: RASAGILINE 1 MG PO SCH (09:02)
--- NOTE | 2018-08-18 10:07 | PN ---
Progress Note Date of Service: 08/18/18 Note: YARON OJEDA JR was visited. Nursing notes read and reviewed. Had BM this morning after MOM, but uses miralax daily at home and would like to resume. No chest pain, shortness of breath or abdominal pain. Current Medications: Active Medications Generic Name Dose Route Start Last Admin Trade Name Freq PRN Reason Stop Dose Admin Acetaminophen 650 mg 08/14/18 10:38 Tylenol Tab* PO Q6H PRN FEVER > 101 Bisacodyl 10 mg 08/18/18 08:54 Dulcolax Supp* [place] DAILY PRN CONSTIPATION Carbidopa/Levodopa 2 tab 08/14/18 14:00 08/18/18 09:54 Carbidopa-Levo Er 25-100 Tab PO 2 tab 0600,1000,1400,1800 JACLYN Administration Cyanocobalamin 1,000 mcg 08/15/18 09:00 08/18/18 09:01 Vitamin B12 Tab* PO 1,000 mcg DAILY JACLYN Administration Docusate Sodium 100 mg 08/14/18 21:00 08/18/18 09:01 Colace Cap* PO 100 mg BID JACLYN Administration Famotidine 40 mg 08/14/18 21:00 08/17/18 21:19 Pepcid Tab* PO 40 mg BEDTIME JACLYN Administration Finasteride 5 mg 08/14/18 18:30 08/17/18 18:16 Proscar Tab* PO 5 mg 1830 JACLYN Administration Fludrocortisone Acetate 0.1 mg 08/15/18 09:00 08/18/18 09:01 Florinef Tab* PO 0.1 mg DAILY JACLYN Administration Fluoxetine HCl 20 mg 08/15/18 09:00 08/18/18 09:01 Prozac Cap* PO 20 mg DAILY JACLYN Administration Heparin Sodium (Porcine) 5,000 units 08/14/18 14:00 08/18/18 04:45 Heparin Vial(*) SUBCUT 5,000 units Q8HR JACLYN Administration Magnesium Hydroxide 30 ml 08/14/18 10:38 08/18/18 05:49 Milk Of Magnesia Liq* PO 30 ml Q6H PRN Administration CONSTIPATION Polyethylene Glycol/Electrolytes 17 gm 08/18/18 08:53 Miralax* PO DAILY PRN CONSTIPATION Rasagiline 0.5 mg 08/18/18 09:00 08/18/18 09:02 Azilect (Nf) PO 0.5 mg DAILY JACLYN Administration Senna 2 tab 08/14/18 21:00 08/17/18 21:20 Senokot Tab* PO 2 tab BEDTIME JACLYN Administration Vital Signs: Vital Signs Temp Pulse Resp BP Pulse Ox 98.3 F 55 16 161/72 96 08/18/18 04:47 08/18/18 04:47 08/18/18 04:47 08/18/18 04:47 08/18/18 04:47 Exam: GENERAL: No acute distress. Alert and appropriate. LUNGS: Clear to auscultation bilaterally HEART: Regular rate and rhythm ABDOMEN: +bowel sounds, soft, non-tender, non-distended EXTREMITIES: Resting tremor, slightly increased tone. No edema NEUROLOGIC: Resting tremor. Sensation intact. Muscle strength 5/5 BUE and BLE Assessment/Plan: 1. Parkinson's Disease: Has DBS. Sinemet/Azilect 2. Shy-Drager/Orthostatic Hypotension: Florinef. Elevate HOB. Despite low BPs standing he is not symptomatic. 3. Depression: Prozac 4. BPH: Proscar. Holding Flomax due to orthostasis 5. DVT Prophylaxis: Heparin S/Q 6. Advance Directives: Full code 7. Estimated LOS: anticipate d/c 08/21/18 08/18/18 10:07
[2018-08-18] MEDS: Finasteride TAB* 5 MG PO SCH (18:44)
[2018-08-18] MEDS: Senna TAB PO SCH (21:40)
[2018-08-18] MEDS: Famotidine TAB* 20 MG PO SCH (21:40)
[2018-08-19] MEDS: Heparin VIAL(*) 5000 UNITS/ML VIAL (FIVE THOUSAND) SUBCUT SCH ×3 (05:51→21:24)
[2018-08-19] MEDS: CARBIDOPA PO SCH ×4 (05:51→17:42)
[2018-08-19] MEDS: LEVODOPA PO SCH ×4 (05:51→17:42)
--- NOTE | 2018-08-19 09:01 | PN ---
Progress Note Date of Service: 08/19/18 Note: YARON OJEDA JR was visited. Nursing notes read and reviewed. I explained to him why flomax had been discontinued. His supply of this and melatonin is in the pharmacy. His urination is slow, but he is still on proscar. He remains orthostatic but without symptoms. He is sleeping well here. No chest pain, shortness of breath or abdominal pain. Current Medications: Active Medications Generic Name Dose Route Start Last Admin Trade Name Freq PRN Reason Stop Dose Admin Acetaminophen 650 mg 08/14/18 10:38 Tylenol Tab* PO Q6H PRN FEVER > 101 Bisacodyl 10 mg 08/18/18 08:54 Dulcolax Supp* [place] DAILY PRN CONSTIPATION Carbidopa/Levodopa 2 tab 08/14/18 14:00 08/19/18 05:51 Carbidopa-Levo Er 25-100 Tab PO 2 tab 0600,1000,1400,1800 JACLYN Administration Cyanocobalamin 1,000 mcg 08/15/18 09:00 08/18/18 09:01 Vitamin B12 Tab* PO 1,000 mcg DAILY JACLYN Administration Docusate Sodium 100 mg 08/14/18 21:00 08/18/18 21:40 Colace Cap* PO 100 mg BID JACLYN Administration Famotidine 40 mg 08/14/18 21:00 08/18/18 21:40 Pepcid Tab* PO 40 mg BEDTIME JACLYN Administration Finasteride 5 mg 08/14/18 18:30 08/18/18 18:44 Proscar Tab* PO 5 mg 1830 JACLYN Administration Fludrocortisone Acetate 0.1 mg 08/15/18 09:00 08/18/18 09:01 Florinef Tab* PO 0.1 mg DAILY JACLYN Administration Fluoxetine HCl 20 mg 08/15/18 09:00 08/18/18 09:01 Prozac Cap* PO 20 mg DAILY JACLYN Administration Heparin Sodium (Porcine) 5,000 units 08/14/18 14:00 08/19/18 05:51 Heparin Vial(*) SUBCUT 5,000 units Q8HR JACLYN Administration Magnesium Hydroxide 30 ml 08/14/18 10:38 08/18/18 05:49 Milk Of Magnesia Liq* PO 30 ml Q6H PRN Administration CONSTIPATION Polyethylene Glycol/Electrolytes 17 gm 08/19/18 09:00 Miralax* PO DAILY JACLYN Rasagiline 0.5 mg 08/18/18 09:00 08/18/18 09:02 Azilect (Nf) PO 0.5 mg DAILY JACLYN Administration Senna 2 tab 08/14/18 21:00 08/18/18 21:40 Senokot Tab* PO 2 tab BEDTIME JACLYN Administration Vital Signs: Vital Signs 08/18/18 08/18/18 08/18/18 09:31 09:32 15:28 Temperature 97.6 F Pulse Rate 72 Respiratory 21 Rate Blood Pressure 100/82 84/70 97/63 (mmHg) O2 Sat by Pulse 98 Oximetry 08/18/18 08/19/18 08/19/18 16:35 05:54 07:39 Temperature 97.9 F Pulse Rate 61 55 Respiratory 16 Rate Blood Pressure 147/86 140/98 (mmHg) O2 Sat by Pulse 98 98 Oximetry 08/19/18 08/19/18 07:44 07:48 Temperature Pulse Rate 69 78 Respiratory Rate Blood Pressure 100/75 82/68 (mmHg) O2 Sat by Pulse Oximetry Exam: GENERAL: No acute distress. Alert and appropriate. LUNGS: Clear to auscultation bilaterally HEART: Regular rate and rhythm ABDOMEN: +bowel sounds, soft, non-tender, non-distended EXTREMITIES: Resting tremor, slightly increased tone. No edema NEUROLOGIC: Resting tremor. Sensation intact. Muscle strength 5/5 BUE and BLE Assessment/Plan: 1. Parkinson's Disease: Has DBS. Sinemet/Azilect 2. Shy-Drager/Orthostatic Hypotension: Florinef. Elevate HOB. Despite low BPs standing he is not symptomatic. 3. Depression: Prozac 4. BPH: Proscar. Holding Flomax due to orthostasis 5. DVT Prophylaxis: Heparin S/Q 6. Advance Directives: Full code 7. Estimated LOS: anticipate d/c 08/21/18 08/19/18 09:00
[2018-08-19] MEDS: Polyethylene Glycol 3350* 17 GM PACKET PO SCH (09:17)
[2018-08-19] MEDS: RASAGILINE 1 MG PO SCH (09:18)
[2018-08-19] MEDS: Cyanocobalamin TAB* 500 MCG PO SCH (09:18)
[2018-08-19] MEDS: FLUoxetine CAP* 20 MG PO SCH (09:18)
[2018-08-19] MEDS: Docusate CAP* 100 MG PO SCH ×2 (09:18→21:24)
[2018-08-19] MEDS: Fludrocortisone Acetate TAB* 0.1 MG PO SCH (09:18)
[2018-08-19] MEDS: Finasteride TAB* 5 MG PO SCH (17:43)
[2018-08-19] MEDS: Senna TAB PO SCH (21:24)
[2018-08-19] MEDS: Famotidine TAB* 20 MG PO SCH (21:24)
[2018-08-20] MEDS: LEVODOPA PO SCH ×4 (06:34→19:13)
[2018-08-20] MEDS: CARBIDOPA PO SCH ×4 (06:34→19:13)
[2018-08-20] MEDS: Heparin VIAL(*) 5000 UNITS/ML VIAL (FIVE THOUSAND) SUBCUT SCH ×3 (06:35→21:22)
[2018-08-20] MEDS: FLUoxetine CAP* 20 MG PO SCH (08:30)
[2018-08-20] MEDS: Fludrocortisone Acetate TAB* 0.1 MG PO SCH (08:30)
[2018-08-20] MEDS: Docusate CAP* 100 MG PO SCH ×2 (08:30→21:21)
[2018-08-20] MEDS: Cyanocobalamin TAB* 500 MCG PO SCH (08:30)
[2018-08-20] MEDS: RASAGILINE 1 MG PO SCH (08:31)
[2018-08-20] MEDS: Polyethylene Glycol 3350* 17 GM PACKET PO SCH (08:32)
--- NOTE | 2018-08-20 12:55 | PMRUTEAM ---
PMRU: Team Meeting Current Status: Nursing: Current Status Skin Deviations [No skin Other issues] Skin Deviation Description [No no issues skin issues] Bladder Current Status voiding in br, does use urinal also Bowel Current Status colace given. last bm 08/18. patient refused miralax this am Nutrition Current Status appetite adequate Medication Current Status requires reinforcement. no pain meds given Physical Therapy: Current Status Bed Mobility Assistance Supervision Transfer Mobility Assistance Contact Guard Assist Transfer/Bed Mobility Rolling Walker Recommended Devices Ambulation Assistance Contact Guard Assist Ambulation Assistive Devices Rolling Walker Number of Feet Patient 300x3 Ambulated Stairs Assistance Contact Guard Assist Stairs Recommended Devices Two Rails Number of Stairs 2x6 Objective Comments patient needs cuing for procedure with each tripup and downstairs. will attempt step over step though cued to complete step to step. patient has difficulty with clearance on advancing foot in step over step. Occupational Therapy: Current Status Upper Body Dressing Independent,Supervision Lower Body Dressing Ind with Adaptive Equip,Supervision Bathing Ind with Adaptive Equip,Supervision Toileting Ind with Adaptive Equip,Supervision Toilet Transfer Ind with Adaptive Equip,Supervision Shower Transfer Supervision Eating Independent Rec Therapy: Current Status Summary of Assessment and Recreation Therapy assessment complete and pt. is Clinical Impression aware of services. Pt. has been open and engaged in leisure visits while on the unit. Treatment Goals Pt. will engage in leisure activities. Treatment Plan Provide recreation therapy services. Social Work: Current Status Discharge Plan return home with home care svs and family support Potential for Family Training pt's participated in family training today Anticipated Discharge Home Destination Discharge With home care svs and family support Nutrition: Current Status Monitoring pt adm 08/14 w/exacerbation of Parkinson's symptoms . [employer] working w/pt for speech only; no reported difficulty chewing or swallowing. He is eating nearly 100% of all meals; regular diet appropriate . Full nutrition assessment planned 08/21 per [facility] protocol; however, no planned d/c on that date. Please consult for any nutrition concerns prior to d/c. Goals: Physical Therapy: Updated Goals Transfer/Bed Mobility Rolling Walker Recommended Devices Occupational Therapy: Initial Goals Goals to be Completed in (Days 3-5 ) Upper Body Bathing Routine Independent Lower Body Bathing Routine Modified Independent with Upper Body Dressing Routine Independent Lower Body Dressing Routine Modified Independent with Toilet Hygeine and Clothing Modified Independent with Management Routine Toilet Transfer Routine Modified Independent with Step-In Shower Transfer Supervision/Set Up Routine Functional Transfers for ADL Modified Independent with Grooming Routine Independent Feeding Routine Independent Nursing: Goals Bladder Goal independent Bowel Goal independent Nutrition Goal 100% of all meals consumed Medication Goal independent Nutrition: Goals Intervention Goals TBD Social Work: Goals Discharge Plan return home with home care svs and family support Potential for Family Training pt's participated in family training today Anticipated Discharge Home Destination Discharge With home care svs and family support Care Plan: Care Plan ADL's - Improve/Maintain Start: 08/15/18 15:45 Freq: DAILY Status: Active Target: Protocol: Activity Type Activity Date Activity User E-Sign Co-Sign Detail Recorded Client Recorded Date Recorded By Document 08/15/18 15:46 [id number] 08/15/18 15:46 [id number] 08/15/18 15:46 PMRU Outcome: ADL's/ADL Transfers Orders/Interventions Occupational Therapy Evaluation & Treatment Communication Tool in Patient Room Patient to receive OT 5x/wk for 60-120 Therex min/day Self Care Management Group Therapy UE/LE ADL's with Assist Yes: mod I ADL Transfers with Assist Yes: mod I Toileting: Transfers,Clothing Management Yes: mod I ,Hygeine w/Assist Light Kitchen/Laundry w/Assist No Progression Toward Outcome/Goals Progressing Outcome/Goals Met Pt is nearing achievemnt of OT goals. Pt has never had a LOB or c/o dizziness with medical underwriter during ADL. His BP was 133/86 at end of session. Biggest risk for falls is during pivots/ turns. Cardiovascular- Improve/Maintain Start: 08/14/18 11:58 Freq: QSHIFT Status: Active Target: Protocol: Activity Type Activity Date Activity User E-Sign Co-Sign Detail Recorded Client Recorded Date Recorded By Document 08/20/18 11:03 [id number] 08/20/18 11:10 [id number] 08/20/18 11:03 PMRU Outcome: Cardiovascular Vital Signs q Shift for 48hrs Then BID Yes Daily Weight Ordered No Current Cardiovascular Outcome/Goal Maintain/ Achieve Baseline HR, BP , Perfusion Maintain/ Improve Perfusion Maintain/ Achieve Hemodynamic Stability Free of Abnormal Cardiac Symptoms Progression Toward Outcome/Goal Progressing DVT Prophylaxis- Improve/Maintain Start: 08/14/18 11:58 Freq: QSHIFT Status: Active Target: Protocol: Activity Type Activity Date Activity User E-Sign Co-Sign Detail Recorded Client Recorded Date Recorded By Document 08/20/18 11:03 [id number] [email or web address] 08/20/18 11:10 [id number] 08/20/18 11:03 PMRU Outcome: DVT Prophylaxis Outcome/Goals Remains Free of DVT Complies with DVT Prophylaxis /Treatment Demonstrates Knowledge of DVT Prevention/ Treatment TEDS Stockings on Every AM, Off at HS Progression Toward Outcome/Goals Progressing Discharge Planning - Improve/Maintain Start: 08/14/18 11:58 Freq: DAILY Status: Active Target: Protocol: Activity Type Activity Date Activity User E-Sign Co-Sign Detail Recorded Client Recorded Date Recorded By Document 08/20/18 00:49 [id number] 08/20/18 00:49 [id number] 08/20/18 00:49 PMRU Outcome: Discharge Planning Update Patient Family No Outcome/Goals Demonstrates Understanding of Discharge Plan Progression Toward Outcome/Goals Progressing Education-Improve/Maintain Start: 08/14/18 11:58 Freq: QSHIFT Status: Active Target: Protocol: Activity Type Activity Date Activity User E-Sign Co-Sign Detail Recorded Client Recorded Date Recorded By Document 08/20/18 11:03 [id number] [id number] 08/20/18 11:10 [id number] 08/20/18 11:03 PMRU Outcome: Education Outcome/Goals Demonstrate/ Verbalize Understanding of Written Discharge Instructions Demonstrates Skills Encourage Questions Progression Toward Outcome/Goals Progressing /GI-Improve/Maintain Start: 08/14/18 11:58 Freq: QSHIFT Status: Active Target: Protocol: Activity Type Activity Date Activity User E-Sign Co-Sign Detail Recorded Client Recorded Date Recorded By Document 08/20/18 11:03 [id number] [id number] 08/20/18 11:10 [id number] 08/20/18 11:03 PMRU Outcome: Genitourinary/ Gastrointestinal Genitourinary- Outcome/Goals Maintain/ Achieve Urinary Continence Remain Free of Hospital- Acquired UTI Gastrointestinal-Outcome/Goals Maintain/ Achieve Bowel Regularity in Accordance with Pt's Baseline Prevent Constipation Laxatives as Ordered Progression Toward Outcome/Goals - Progressing Progression Toward Outcome/Goals - GI Progressing Outcome/Goals Met Comment patient voided in BR. patient declined Miralax. colace given Medication Administration Start: 08/14/18 11:58 Freq: QSHIFT Status: Active Target: Protocol: Activity Type Activity Date Activity User E-Sign Co-Sign Detail Recorded Client Recorded Date Recorded By Document 08/20/18 11:03 [id number] 08/20/18 11:10 [id number] 08/20/18 11:03 PMRU Outcome: Medication Administration Assess Patient Knowledge/Teach Med Yes Education for all Meds Outcome/Goals Family/ Caregiver Administer Medications at Home Demonstrates Understanding Progression Towards Outcome/Goals Progressing Is Patient Going Home on Lovenox? No Neurological- Improve/Maintain Start: 08/14/18 11:58 Freq: QSHIFT Status: Active Target: Protocol: Activity Type Activity Date Activity User E-Sign Co-Sign Detail Recorded Client Recorded Date Recorded By Document 08/20/18 11:03 [id number] [email or web address] 08/20/18 11:10 [id number] 08/20/18 11:03 PMRU Outcome: Neurological Weakness/Aphasia Weakness Weakness/Aphasia Comment generalized weakness s/p Parkinson's dx Outcome/Goals Improve Neurological Status Prevent Avoidable Neurological Decline Maintain/ Improve Strength/ROM Progression Toward Outcome/Goals Progressing Safety- Improve/Maintain Start: 08/14/18 11:58 Freq: QSHIFT Status: Active Target: Protocol: Activity Type Activity Date Activity User E-Sign Co-Sign Detail Recorded Client Recorded Date Recorded By Document 08/20/18 11:03 [id number] 08/20/18 11:10 [id number] 08/20/18 11:03 PMRU Outcome: Safety Outcome/Goals Remain Free of Injury or Harm Cooperates with Safety Measures for Least Restrictive Environment Prevent Falls/ Injury Progression Toward Outcome/Goals Progressing Outcome/Goals Met Comment PA on when oob Medicine Note: Length of Stay: 1 days Anticipated Discharge Destination: Home Tentative Discharge Date: Home Discharged to: 08/21/18
[2018-08-20] MEDS: Finasteride TAB* 5 MG PO SCH (19:13)
--- NOTE | 2018-08-20 19:40 | PN ---
Progress Note Date of Service: 08/20/18 Note: YARON OJEDA JR was visited. Therapy notes read and reviewed. He was discussed in interdisciplinary team rounds. He is ready for discharge tomorrow, otherwise ok. Current Medications: Active Medications Generic Name Dose Route Start Last Admin Trade Name Freq PRN Reason Stop Dose Admin Acetaminophen 650 mg 08/14/18 10:38 Tylenol Tab* PO Q6H PRN FEVER > 101 Bisacodyl 10 mg 08/18/18 08:54 Dulcolax Supp* UT DAILY PRN CONSTIPATION Carbidopa/Levodopa 2 tab 08/14/18 14:00 08/20/18 19:13 Carbidopa-Levo Er 25-100 Tab PO 2 tab 0600,1000,1400,1800 JACLYN Administration Cyanocobalamin 1,000 mcg 08/15/18 09:00 08/20/18 08:30 Vitamin B12 Tab* PO 1,000 mcg DAILY JACLYN Administration Docusate Sodium 100 mg 08/14/18 21:00 08/20/18 08:30 Colace Cap* PO 100 mg BID JACLYN Administration Famotidine 40 mg 08/14/18 21:00 08/19/18 21:24 Pepcid Tab* PO 40 mg BEDTIME JACLYN Administration Finasteride 5 mg 08/14/18 18:30 08/20/18 19:13 Proscar Tab* PO 5 mg 1830 JACLYN Administration Fludrocortisone Acetate 0.1 mg 08/15/18 09:00 08/20/18 08:30 Florinef Tab* PO 0.1 mg DAILY JACLYN Administration Fluoxetine HCl 20 mg 08/15/18 09:00 08/20/18 08:30 Prozac Cap* PO 20 mg DAILY JACLYN Administration Heparin Sodium (Porcine) 5,000 units 08/14/18 14:00 08/20/18 14:47 Heparin Vial(*) SUBCUT 5,000 units Q8HR JACLYN Administration Magnesium Hydroxide 30 ml 08/14/18 10:38 08/18/18 05:49 Milk Of Magnesia Liq* PO 30 ml Q6H PRN Administration CONSTIPATION Polyethylene Glycol/Electrolytes 17 gm 08/19/18 09:00 08/20/18 08:32 Miralax* PO Not Given DAILY JACLYN Rasagiline 0.5 mg 08/18/18 09:00 08/20/18 08:31 Azilect (Nf) PO 0.5 mg DAILY JACLYN Administration Senna 2 tab 08/14/18 21:00 08/19/18 21:24 Senokot Tab* PO 2 tab BEDTIME JACLYN Administration Vital Signs: Vital Signs Temp Pulse Resp BP Pulse Ox 97.7 F 65 20 183/89 100 08/20/18 16:14 08/20/18 16:14 08/20/18 16:14 08/20/18 16:14 08/20/18 16:14 Exam: GENERAL: No acute distress. Alert and appropriate. LUNGS: Clear to auscultation bilaterally HEART: Regular rate and rhythm ABDOMEN: +bowel sounds, soft, non-tender, non-distended EXTREMITIES: Resting tremor, slightly increased tone. No edema NEUROLOGIC: Sensation intact. Muscle strength 5/5 BUE and BLE Assessment/Plan: 1. Parkinson's Disease: Has DBS. Sinemet/Azilect 2. Shy-Drager/Orthostatic Hypotension: Florinef. Elevate HOB. Despite low BPs standing he is not symptomatic. 3. Depression: Prozac 4. BPH: Proscar. Holding Flomax due to orthostasis 5. DVT Prophylaxis: Heparin S/Q 6. Advance Directives: Full code 7. Estimated LOS: anticipate d/c tomorrow 08/20/18 19:41
[2018-08-20] MEDS: Famotidine TAB* 20 MG PO SCH (21:20)
[2018-08-20] MEDS: Senna TAB PO SCH (21:22)
[2018-08-21] MEDS: Heparin VIAL(*) 5000 UNITS/ML VIAL (FIVE THOUSAND) SUBCUT SCH (05:27)
[2018-08-21] MEDS: LEVODOPA PO SCH ×2 (05:27→10:02)
[2018-08-21] MEDS: CARBIDOPA PO SCH ×2 (05:27→10:02)
[2018-08-21 08:37] VITALS: BP 75/54
[2018-08-21] MEDS: Polyethylene Glycol 3350* 17 GM PACKET PO SCH (08:52)
[2018-08-21] MEDS: Cyanocobalamin TAB* 500 MCG PO SCH (08:53)
[2018-08-21] MEDS: Fludrocortisone Acetate TAB* 0.1 MG PO SCH (08:53)
[2018-08-21] MEDS: FLUoxetine CAP* 20 MG PO SCH (08:53)
[2018-08-21] MEDS: Docusate CAP* 100 MG PO SCH (08:53)
[2018-08-21] MEDS: RASAGILINE 1 MG PO SCH (08:54)
--- NOTE | 2018-08-22 22:47 | DS ---
CC: Dr. Geraldo Saab; Dr. Drew Thomas* DISCHARGE SUMMARY: DATE OF ADMISSION: 08/14/18 DATE OF DISCHARGE: 08/21/18 DISCHARGE DIAGNOSES: 1. Parkinson's disease. 2. Shy-Drager/orthostatic hypotension. 3. Benign prostatic hypertrophy. 4. Depression. HISTORY OF PRESENT ILLNESS AND HOSPITAL COURSE: For a complete history of the events leading up to his rehab stay, please see the history and physical dictated by me on 08/14/18. Briefly, the patient is a 73-year-old male with Parkinson's disease diagnosed 7 years ago. He had a deep brain stimulator placed in January of 2016 for frequent dyskinesias. He had trouble with falling, starting in the summer of 2017, but over the past 3 months had a significant increase in falls. He was admitted to the hospital. He was started on Florinef to try to increase his blood pressure. He remained on his Sinemet and Azilect. His Flomax was held as I thought it might be contributing to the orthostasis. The patient symptomatically felt better, but was still noted to be orthostatic when his vital signs were checked. The patient was seen by Physical Therapy and Occupational Therapy and made good gains with both disciplines. With physical therapy, at the time of admission, the patient was able to transfer with supervision, he could ambulate with contact guard. He did have occasional losses of balance and reported dizziness. With occupational therapy, at the time of admission, the patient required supervision for upper body dressing, contact guard for lower body dressing, supervision for toileting, supervision for toilet transfers. By the time of discharge, the patient was independent in transfers, independent ambulating with a rolling walker 300 feet, independent going up and down stairs, but did do 1 step at a time, independent in dressing, independent in toileting, independent in toilet transfers. The patient was discharged home with his on 08/21/18. DISCHARGE DIET: Regular. DISCHARGE MEDICATIONS: 1. Sinemet ER 25/100 two tablets at 6 a.m., 10 a.m., 2 p.m., and 6 p.m. 2. Vitamin B12 1000 mcg orally every day. 3. Pepcid 40 mg daily. 4. Proscar 5 mg daily. 5. Florinef 0.1 mg daily. 6. Prozac 20 mg daily. 7. MiraLAX 17 g in water daily. 8. Azilect 0.5 mg daily. 9. Senokot 2 tablets at bedtime. 10. Melatonin 5 mg at bedtime as needed. SERVICES AFTER DISCHARGE: Through visiting nurse service, he will have home nursing, home physical therapy, and a home health aide. Follow up with his primary care doctor, Dr. Geraldo Saab as well as his neurologist, Dr. Drew Thomas. CONDITION AT DISCHARGE: The patient was discharged in stable condition. TIME SPENT: Time for this discharge was approximately 50 minutes, greater than half of which was spent with the patient and his explaining post- rehabilitation therapies, medications, and followup. [id number]/[facility] #: [id number] LISA
== END 2018-08-21 12:00 | disposition home health service (06) | DRG 57 ==
LOC: PMRU 10:12
PROVIDERS: ADMIT Physical Medicine & Rehabilitation; ATTEND Physical Medicine & Rehabilitation
PROC: F07Z5ZZ Bed Mobility Treatment (ICD-10-PCS; principal; 2018-08-14)
PROC: F07Z9ZZ Gait Training/Functional Ambulation Treatment (ICD-10-PCS; 2018-08-14)
PROC: F07Z8ZZ Transfer Training Treatment (ICD-10-PCS; 2018-08-14)
PROC: F08Z0ZZ Bathing/Showering Techniques Treatment (ICD-10-PCS; 2018-08-14)
PROC: F08Z1ZZ Dressing Techniques Treatment (ICD-10-PCS; 2018-08-14)
PROC: F08Z3ZZ Feeding/Eating Treatment (ICD-10-PCS; 2018-08-14)
DX: G20 Parkinson's disease (principal); G90.3 Multi-system degeneration of the autonomic nervous system; N40.0 Benign prostatic hyperplasia without lower urinary tract symptoms; F32.9 Major depressive disorder, single episode, unspecified; G47.39 Other sleep apnea; J30.9 Allergic rhinitis, unspecified; G25.2 Other specified forms of tremor; Z79.899 Other long term (current) drug therapy; Z88.1 Allergy status to other antibiotic agents; Z88.8 Allergy status to other drugs, medicaments and biological substances
CPT/HCPCS: 36415; 80053; 85025; A9270-GY; J1644

== ENCOUNTER 2019-03-04 11:13 | Emergency (ER) | payer MEDICARE, BC ==
--- OUTSIDE RECORDS SUMMARY | 2019-03-04 11:21 | XMS REPORT | Continuity of Care Document ---
:1945 External Reference #:[id number] Author Name Drew Thomas M.D. (transmitted by agent of provider Kaya Worrell) Address [address], [place] [address] Care Team Providers Name Role Phone Geraldo aSab III, MD - Internal Care Team Information Salary And Wage Administrator [phone] Medicine Ck Alaniz MD - Neurology Care Team Information Salary And Wage Administrator Problems Active Problems Provider Date Impaired fasting glycaemia Geraldo Saab M.D. Onset: 11/24/2010 Allergic rhinitis Geraldo Saab M.D. Onset: 11/24/2010 Arthralgia of the lower leg Geraldo Saab M.D. Onset: 04/19/2011 Malaise and fatigue Geraldo aSab M.D. Onset: 06/20/2011 Urinary tract infectious disease [...] apnea of adult Shira Loredo DNP, RN, [facility] Onset: Note: Mild. 07/24/14: AHI 7.7, RDI 15.9, michael oxygen 82%, wt 182 Dizziness and giddiness Drew Thomas M.D. Onset: 01/22/2018 Abnormal gait Drew Thomas M.D. Onset: 01/22/2018 Orthostatic hypotension Drew Thomas M.D. Onset: 06/04/2018 Nervous system symptoms Drew Thomas M.D. Onset: 07/11/2018 History of fall Drew Thomas M.D. 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 Social History Type Date Description Comments Sex Unknown Tobacco Use Start: Unknown Never Smoked Cigarettes Cigarette Use pipe only in the past Tobacco Use Start: Unknown Quit in 1982 Smoking Status Reviewed: 02/10/19 Quit in 1982 ETOH Use Consumes 1 glass of 2 glasses, 3-4 days wine per day weekly Recreational Drug Use Denies Drug Use Tobacco Use Start: Unknown End: Patient is a former smoke for short Unknown smoker period, e 1982 Recreational Drug Use frequent falls d/t Parkinsons, unable to exercise Recreational Drug Use Current out pt Physical Therapy 2 x wk Exercise Type/Frequency Does not exercise Allergies, Adverse Reactions, Alerts Active Allergies Reaction Severity Comments Date Plavix Bruise umaña 03/28/2007 Minocycline Hives Hives 03/28/2007 Cipro Cramps 07/17/2011 Medications Active Medications SIG Qnty Indications Ordering Provider Date Mirapex ER 1 tablet daily 30tabs G20 Brendan Dowd, 01/30/2019 0.375mg N.P. Tablets ER 24HR Rasagiline Mesylate Take 1 a day 30tabs G20 Drew Thomas, 10/10/2018 M.D. 0.5mg Tablets Omeprazole Take One Capsule 30caps K21.9 Geraldo Saab, 08/23/2018 20mg By Mouth Once M.D. Capsules DR Daily Compression 2Pair R60.0 Adnnydebi Mir, MD 07/12/2018 [place] [facility] Vesna Salcedo S80.01xA Danny Mir MD 06/12/2018 [facility] G20 Sinemet CR 2 tabs by mouth 360tabs Brendan Nile, 06/04/2018 25-100mg Tablets three times a day N.P. ER and 1 tab Melatonin 1 cap at bedtime Drew Thomas, 03/15/2018 5mg Capsules M.D. Prozac take one capsule by 90caps Drew Thomas, 06/01/2015 20mg Capsules mouth once daily M.D. Flaxseed Oil 1 PO two times per Geraldo Saab III 1000mg day MD Anthony Magnesium 1 by mouth twice a Unknown 250mg Tablets day Finasteride once daily Migel Young MD 5mg Tablets Glucosamine Chondroitin 750 mg, with Unknown 1500 Complex Maximum Chondroitin 140 mg Strength and Vitamin D3 1,000 1500Com Capsules Iu. take one capsule/tablet daily by mouth Miralax 17 grams by mouth Unknown Powder every other day Fludrocortisone Acetate take 1 tab by mouth 30tabs Drew Thomas, 0.1mg daily M.D. Tablets Vitamin B12 1 by mouth every day Unknown 1000mcg Tablets ER Medications Administered in Office Medication SIG Qnty Indications Ordering Provider Date Influenza Virus Vaccine Geraldo Saab M.D. 11/24/2014 Injection Influenza Virus Vaccine Unknown 12/24/2013 Injection Immunizations CPT Code Status Date Vaccine Lot # [id number] Given 12/11/2017 Fluzone High Dose 63454 Given 01/14/2016 Fluzone High Dose 63907 Given 08/31/2014 Tdap - Tetanus/Diptheria/Acellular Pertussis [id number] 95186 Given 08/31/2014 Pneumococcal Conjugate Vaccine 13 Valent For [id number] Intramuscular Use 80057 Given 07/28/2010 Pneumonia Vaccine [id number] 05604 Given 01/14/2009 Influenza Virus 3Yrs & Over 80373 Given 09/07/2008 Zoster (Zostavax) 14480 Given 01/01/2008 Influenza Virus 3Yrs & Over 09448 Given 07/13/2004 Td (History By Patient) Vital Signs Date Vital Result Comment 02/10/2019 11:57am Height 70 inches 5'10" Weight 182.00 lb Heart Rate 63 /min BP Systolic 112 mmHg BP Diastolic 82 mmHg BMI (Body Mass Index) 26.1 kg/m2 01/30/2019 2:03pm Height 70 inches 5'10" Weight 175.00 lb Heart Rate 72 /min BP Systolic Sitting 142 mmHg BP Diastolic Sitting 80 mmHg Respiratory Rate 19 /min BMI (Body Mass Index) 25.1 kg/m2 Results Description No Information Available Procedures Date Code Description Status 01/06/2019 07299 With Brain Neurostimulator Pulse Generator, First 15 Completed Minutes 01/03/2019 38097 Stress ECHO Interpretation/Report Hospital Completed 01/03/2019 78692 Stress Test Supervsn W/Out I/R Completed 01/03/2019 20677 Stress Test Supervsn W/Out I/R Completed 11/05/2018 13899 Neurostimulator Pulse Generator Analysis W/O Completed Reprogramming 10/03/2018 76407 EKG Tracing & Interpretation Completed 09/04/2016 09113730 Colonoscopy Completed 09/22/2005 40750561 Colonoscopy Completed Medical Devices Description No Information Available Encounters Type Date Location Provider Dx Diagnosis Office Visit 01/30/2019 [facility] Brendan Dowd, G20 Parkinson's 2:00p Services Of Financial Reporting Analyst N.P. disease I95.1 Orthostatic hypotension Office Visit 01/14/2019 [facility] And Shira Loredo, G47.33 Obstructive 2:30p [facility] SON NARVAEZ FNP-BC sleep apnea [facility] (adult) (pediatric) Office Visit 12/30/2018 [facility] Neri Curry Parkinson' s 2:30p Services Of Financial Reporting Analyst MPritiDPriti disease G47.33 Obstructive sleep apnea (adult) (pediatric) I95.1 Orthostatic hypotension Office Visit 11/29/2018 [facility] And Shira Loredo G47.33 Obstructive 11:30a [facility]ARV[facility] FNP-BC sleep apnea [facility] (adult) (pediatric) Office Visit 11/05/2018 [facility] Drew Thomas G2Nguyễn Parkinson' s 12:15p Services Of Financial Reporting Analyst M.DPriti disease I95.1 Orthostatic hypotension Z96.89 Presence of other specified functional implants Office Visit 10/10/2018 12:15p [facility] Drew Thoams G2Nguyễn Parkinson's [facility] Josue disease I95.1 Orthostatic hypotension Office Visit 10/03/2018 3:20p [facility] Nahun Holder G2Nguyễn Parkinson 's Of [facility] Josue Clay disease I95.1 Orthostatic hypotension Z96.89 Presence of other specified functional implants I45.19 Other right bundle-branch block R94.31 Abnormal electrocardiogram [ECG] [EKG] R06.00 Dyspnea, unspecified Office Visit 09/06/2018 12:15p [facility] Drew Thomas G2gNuyễn [facility]'s [facility] Josue disease R29.6 Repeated falls I95.1 Orthostatic hypotension Z91.81 History of falling Z96.89 Presence of other specified functional implants Office Visit 08/23/2018 2:00p [facility] Internal John Gomez, I95.1 Orthostatic Medicine - [employer]IL [employer]ER hypotension R29.6 Repeated falls G20 Parkinson's disease E53.8 Deficiency of other specified B group vitamins K21.9 Gastro-esophageal reflux disease without esophagitis Office Visit 08/14/2018 9:07a [facility] G20 Parkinson's Assoc,mark Castillo, [employer] disease Hospitalists I95.1 Orthostatic hypotension R29.6 Repeated falls Office Visit 08/13/2018 [facility] Brendan I95.1 Orthostatic 7:00a Clinic Dowd, N.P. hypotension G20 Parkinson's disease Z91.81 History of falling Office Visit 08/13/2018 [facility] I95.1 Orthostatic 9:06a Assoc,mark Castillo, [employer]IL [employer]ER hypotension Hospitalists I10 Essential (primary) hypertension R29.6 Repeated falls G20 Parkinson's disease R41.0 Disorientation, unspecified D53.9 Nutritional anemia, unspecified Office Visit 08/12/2018 [facility] Brendan I95.1 Orthostatic 7:00a Clinic Dowd, N.P. hypotension G20 Parkinson's disease Z91.81 History of falling Office Visit 08/12/2018 [facility] I95.1 Orthostatic 9:06a Assoc,mark Castillo, [employer] hypotension Hospitalists I10 Essential (primary) hypertension R29.6 Repeated falls G20 Parkinson's disease R41.0 Disorientation, unspecified D53.9 Nutritional anemia, unspecified Office Visit 08/11/2018 Neurohospital[facility] Eugenie Salter, G20 Parkinson's 7:00a Clinic M.DPriti disease I95.1 Orthostatic hypotension R29.6 Repeated falls Office Visit 08/11/2018 9:06a [facility] I95.1 Orthostatic Assoc,pc Shortle, [employer] hypotension Hospitalists I10 Essential (primary) hypertension R29.6 Repeated falls R41.0 Disorientation, unspecified D53.9 Nutritional anemia, unspecified G20 Parkinson's disease Assessments Date Code Description Provider 02/10/2019 G20 Parkinson's disease Drew Thomas M.D. 02/10/2019 I95.1 Orthostatic hypotension Drew Thomas M.D. 02/10/2019 R06.00 Dyspnea Drew Thomas M.D. 01/30/2019 G20 Parkinson's disease Brendan Dowd, N.P. 01/30/2019 I95.1 Orthostatic hypotension Brendan Dowd, N.P. 01/14/2019 G47.33 Obstructive sleep apnea (adult) Shira Loredo DNP, RN, (pediatric) [facility]- 01/06/2019 G20 Parkinson's disease Drew Thomas M.D. 01/06/2019 G47.33 Obstructive sleep apnea (adult) Drew Thomas M.D. (pediatric) 01/06/2019 I95.1 Orthostatic hypotension Drew Thomas M.D. 01/06/2019 Z45.42 Encounter for adjustment and Drew Thomas M.D. management of neurostimulator 01/03/2019 R06.00 Dyspnea Nahun Clay M.D. 12/30/2018 G20 Parkinson's disease Drew Thomas M.D. 12/30/2018 G47.33 Obstructive sleep apnea (adult) Drew Thomas M.D. (pediatric) 12/30/2018 I95.1 Orthostatic hypotension Drew Thomas M.D. 11/29/2018 G47.33 Obstructive sleep apnea (adult) Shira Loredo DNP, RN, (pediatric) [facility]- 11/27/2018 Z00.00 Encounter for general adult medical Geraldo Saab M.D. examination without abnormal findings 11/27/2018 G20 Parkinson's disease Geraldo Saab M.D. 11/27/2018 I95.1 Orthostatic hypotension Geraldo Saab M.D. 11/27/2018 K21.9 Gastro-esophageal reflux disease Geraldo Saab M.D. without esophagitis 11/27/2018 N40.0 Benign prostatic hyperplasia without Geraldo Saab M.D. lower urinary tract symptoms 11/27/2018 G47.33 Obstructive sleep apnea (adult) Geraldo Saab M.D. (pediatric) 11/05/2018 G20 Parkinson's disease Drew Thomas M.D. 11/05/2018 I95.1 Orthostatic hypotension Drew Thomas M.D. 11/05/2018 Z96.89 Presence of other specified Drew Thomas M.D. functional implants 10/10/2018 G20 Parkinson's disease Drew Thomas M.D. 10/10/2018 I95.1 Orthostatic hypotension Drew Thomas M.D. 10/03/2018 G20 Parkinson's disease Nahun Clay M.D. 10/03/2018 I95.1 Orthostatic hypotension Nahun Clay M.D. 10/03/2018 Z96.89 Presence of other specified Nahun Clay M.D. functional implants 10/03/2018 I45.19 Right bundle branch block Nahun Clay M.D. 10/03/2018 R94.31 ECG: ventricular ectopics Nahun Clay M.D. 10/03/2018 R06.00 Dyspnea Nahun Clay M.D. 09/06/2018 G20 Parkinson's disease Drew Thomas M.D. 09/06/2018 R29.6 Repeated falls Drew Thomas M.D. 09/06/2018 I95.1 Orthostatic hypotension Drew Thomas M.D. 09/06/2018 Z91.81 History of falling Drew Thomas M.D. 09/06/2018 Z96.89 Presence of other specified Drew Thomas M.D. functional implants 08/23/2018 I95.1 Orthostatic hypotension John Gomez, COIL B[employer]ER 08/23/2018 R29.6 Repeated falls John Gomez, COIL B[employer]ER 08/23/2018 G20 Parkinson's disease John Gomez, COIL B[employer]ER 08/23/2018 E53.8 Deficiency of other specified B John Dyer, COIL B[employer]ER group vitamins 08/23/2018 K21.9 Gastro-esophageal reflux disease Johnisaiah Dyer, COIL [employer]ER without esophagitis 08/14/2018 G20 Parkinson's disease Radha Castillo, COIL B[employer]ER 08/14/2018 I95.1 Orthostatic hypotension Radha Castillo, COIL B[employer]ER 08/14/2018 R29.6 Repeated falls Radha Castillo, COIL BINDER 08/13/2018 I95.1 Orthostatic hypotension Brendan Dowd, N.P. 08/13/2018 G20 Parkinson's disease Brendan Dowd, N.P. 08/13/2018 Z91.81 History of falling Brendan Dowd, N.P. 08/13/2018 I95.1 Orthostatic hypotension Radha Castillo, COIL BINDER 08/13/2018 I10 Essential (primary) hypertension Radha Castillo, COIL B[employer]ER 08/13/2018 R29.6 Repeated falls Radha Castillo, COIL B[employer]ER 08/13/2018 G20 Parkinson's disease Radha Castillo, COIL BINDER 08/13/2018 R41.0 Disorientation, unspecified Radha Castillo, COIL BINDER 08/13/2018 D53.9 Nutritional anemia, unspecified Radha Castillo, COIL B[employer]ER 08/12/2018 I95.1 Orthostatic hypotension Brendan Dowd, N.P. 08/12/2018 G20 Parkinson's disease Brendan Dowd, N.P. 08/12/2018 Z91.81 History of falling Brendan Dowd, N.P. 08/12/2018 I95.1 Orthostatic hypotension Radha Castillo, COIL BINDER 08/12/2018 I10 Essential (primary) hypertension Radha Castillo, COIL BINDER 08/12/2018 R29.6 Repeated falls Radha Castillo, COIL BINDER 08/12/2018 G20 Parkinson's disease Radha Castillo, COIL BINDER 08/12/2018 R41.0 Disorientation, unspecified Radha Castillo, COIL BINDER 08/12/2018 D53.9 Nutritional anemia, unspecified Radha Castillo, COIL B[employer]ER 08/11/2018 G20 Parkinson's disease Eugenie Salter M.D. 08/11/2018 I95.1 Orthostatic hypotension Mayelin Shortsebastian, [employer]ER 08/11/2018 I95.1 Orthostatic hypotension Eugenie Salter M.D. 08/11/2018 I10 Essential (primary) hypertension Mayelin Shortle, COIL B[employer]ER 08/11/2018 R29.6 Repeated falls Eugenie Salter M.D. 08/11/2018 R29.6 Repeated falls Mayelin Shortle, COIL BINDER 08/11/2018 R41.0 Disorientation, unspecified Mayelin Shortle, COIL BINDER 08/11/2018 D53.9 Nutritional anemia, unspecified Mayelin Shortle, COIL BINDER 08/11/2018 G20 Parkinson's disease Mayelin Galeas, COIL BINDER Plan of Treatment Future Appointment(s):04/03/2019 12:00 pm - Drew Thomas M.D. at [facility]03/05/2019 2:30 pm - Shira Loredo DNP, RN, [employer] at [facility]05/22/2019 11:10 am - Eyad Blackmon MD at [facility] Aesqwbiskde54/18/2019 - Drew Thomas M.D.G20 Parkinson's bzgflnnW57.1 Orthostatic tdalytqnxwmL78.00 Dyspnea Functional Status Description No Information Available Mental Status Description No Information Available Referrals Description No Information Available
--- OUTSIDE RECORDS SUMMARY | 2019-03-04 11:21 | XMS REPORT | Continuity of Care Document ---
:1945 External Reference #:[id number] Author Name Shira Loredo DNP, RN, ATTENDING PATHOLOGIST- (transmitted by agent of provider Mandie Garcia) Address [address], [address] [place] [address] Care Team Providers Name Role Phone Geraldo Saab III, MD - Internal Care Team Information [facility] Ck Alaniz MD - Neurology Care Team Information [facility] Problems Active Problems Provider Date Impaired fasting [...] apnea of adult Shira Loredo DNP, RN, [facility] Onset: Note: Mild. 07/24/14: AHI 7.7, RDI [...] Unknown Quit in 1982 Smoking Status Reviewed: 01/14/19 Quit in 1982 ETOH Use Consumes 1 glass of 2 glasses, 3-4 days wine per day weekly Recreational Drug Use Denies Drug Use Tobacco Use Start: Unknown End: Patient is a former smoke for short Unknown smoker period, pipe 1982 Recreational Drug Use frequent falls d/t Parkinsons, unable to exercise Recreational Drug Use Current out pt Physical Therapy 2 x wk Allergies, Adverse Reactions, Alerts Active Allergies Reaction Severity Comments Date Plavix Bruise umaña 03/28/2007 Minocycline Hives Hives 03/28/2007 Cipro Cramps 07/17/2011 Medications Active Medications SIG Qnty Indications Ordering Provider Date Rasagiline Mesylate Take 1 a day 30tabs G20 Drew Thomas 10/10/2018 Josue 0.5mg Tablets Omeprazole Take One Capsule 30caps K21.9 oJhn Dyer NP 08/23/2018 20mg By Mouth Once Capsules DR Daily Compression 2Pair R60.0 Danny Mir MD 07/12/2018 Stockings [facility] [place] Shawnaer Walker S80.01xA Danny Mir MD 06/12/2018 [facility] [place] G20 Sinemet CR 2 tabs by mouth four 360tabs Brendan Dowd 06/04/2018 25-100mg Tablets times a day N.P. ER Melatonin 1 cap at bedtime Drew [...] CPT Code Status Date Vaccine Lot # [id number] Given 12/11/2017 Fluzone High Dose 46273 Given 01/14/2016 Fluzone High Dose 01920 Given 08/31/2014 Tdap - Tetanus/Diptheria/Acellular Pertussis [id number] 14470 Given 08/31/2014 Pneumococcal Conjugate Vaccine 13 Valent For [id number] Intramuscular Use 63257 Given 07/28/2010 Pneumonia Vaccine [id number] 44612 Given 01/14/2009 Influenza Virus 3Yrs & Over 99709 Given 09/07/2008 Zoster (Zostavax) 17631 Given 01/01/2008 Influenza Virus 3Yrs & Over 07582 Given 07/13/2004 Td (History By Patient) Vital Signs Date Vital Result Comment 01/14/2019 2:31pm Height 70 inches 5'10" Weight 184.12 lb Heart Rate 56 /min BP Systolic Sitting 160 mmHg Lue reg cuff BP Diastolic Sitting 112 mmHg Lue reg cuff O2 % BldC Oximetry 97 % On Ra BMI (Body Mass Index) 26.4 kg/m2 01/06/2019 4:01pm Height 70 inches 5'10" Weight 175.00 lb Heart Rate 64 /min BP Systolic 142 mmHg BP Diastolic 100 mmHg BMI (Body Mass Index) 25.1 kg/m2 Results Test Date Facility Test Result H/L Range Note CBC Auto 08/08/2018 [facility] White Blood 5.8 10^3/uL Normal 3.5-10.[address] [place] [address] [phone] Red Blood Count 4.16 10^6/uL Low 4.18-5.48 Hemoglobin 13.6 g/dL Low 14.0-18.0 Hematocrit 41 % Low 42-52 Mean Corpuscular Volume 98 fL High 80-94 Mean Corpuscular Hemoglobin 33 pg High 27-31 Mean Corpuscular HGB Conc 33 g/dL Normal 31-36 Red Cell Distribution Width 13 % Normal 10.5-15 Platelet Count 186 10^3/uL Normal 150-450 Mean Platelet Volume 8.5 fL Normal 7.4-10.4 Abs Neutrophils 3.6 10^3/uL Normal 1.5-7.7 Abs Lymphocytes 1.4 10^3/uL Normal 1.0-4.8 Abs Monocytes 0.7 10^3/uL Normal 0-0.8 Abs Eosinophils 0.0 10^3/uL Normal 0-0.6 Abs Basophils 0.1 10^3/uL Normal 0-0.2 Abs Nucleated RBC 0.0 10^3/uL Granulocyte % 61.3 % Lymphocyte % 24.7 % Monocyte % 12.1 % Eosinophil % 0.9 % Basophil % 1.0 % Nucleated Red Blood Cells % 0.0 Laboratory test 08/08/2018 [facility] Lactic Acid 1.3 mmol/L Normal 0.5-2.[address] [place] [address] [phone] Troponin-I (TnI) 0.00 ng/mL <0.04 2 Comp Metabolic 08/08/2018 [facility] Sodium 138 mmol/L Normal 135-[address] [place] [address] [phone] Potassium 4.5 mmol/L Normal 3.5-5.0 Chloride 104 mmol/L Normal 101-111 Co2 Carbon Dioxide 29 mmol/L Normal 22-32 Anion Gap 5 mmol/L Normal 2-11 Glucose 110 mg/dL High 70-100 Blood Urea Nitrogen 20 mg/dL Normal 6-24 Creatinine 0.83 mg/dL Normal 0.67-1.17 BUN/Creatinine Ratio 24.1 High 8-20 Calcium 9.4 mg/dL Normal 8.6-10.3 Total Protein 6.1 g/dL Low 6.4-8.9 Albumin 4.0 g/dL Normal 3.2-5.2 Globulin 2.1 g/dL Normal 2-4 Albumin/Globulin Ratio 1.9 Normal 1-3 Total Bilirubin 1.00 mg/dL Normal 0.2-1.0 Alkaline Phosphatase 99 U/L Normal 34-104 Alt < 3 U/L Low 7-52 Ast 11 U/L Low 13-39 Egfr Non- 90.8 >60 Egfr 109.9 >60 3 Laboratory test 08/08/2018 [facility] Magnesium 2.0 mg/dL Normal 1.9-2.7 finding [address] [place] [address] [phone] TSH (Thyroid Stim Horm) 1.16 mcIU/mL Normal 0.34-5.60 Urinalysis Profile 08/08/2018 [facility] Urine Color Straw [address] [place] [address] [phone] Urine Appearance Clear Urine Specific [place] 1.008 Low 1.010-1.030 Urine pH 6.0 Normal 5-9 Urine Urobilinogen Negative Negative Urine Ketones Negative Negative Urine Protein Negative Negative Urine Leukocytes Negative Negative Urine Blood Negative Negative Urine Nitrite Negative Negative Urine Bilirubin Negative Negative Urine Glucose Negative Negative Laboratory test 07/26/2018 [facility] PSA Diagnostic 1.048 ng/ mL 0-4.0 4 finding [address] [place] [address] [phone] 1 [facility] Severe Sepsis and Septic Shock Management Bundle Measure requires all lactic acids initially measuring >2.0 mmol/L be repeated. 2 Troponin-I testing on Plasma Separator Tubes (PST) has a known false positive rate of 0.20-0.40%. All positive troponins reflex immediately to secondary confirmatory testing. Using the [employer] Access Immunoassay systems, the 99th percentile upper reference limit was demonstrated to be < 0.03 ng/mL. 3 Because ethnic data is not always [...] 5 Kidney failure <15 (or dialysis) 4 Serum levels of PSA measured using the [employer] DXI Hybritech immunoassay should not be interpreted as absolute evidence of the presence or absence of disease. The PSA value should be used in conjunction with other pertinent clinical diagnostic procedures. The values obtained with different assay methods or kits cannot be used interchangeably. Procedures Date Code Description Status 01/06/2019 41762 With Brain Neurostimulator Pulse Generator, First 15 Completed Minutes 01/03/2019 78863 Stress ECHO Interpretation/Report Hospital Completed 01/03/2019 77981 Stress Test Supervsn W/Out I/R Completed 01/03/2019 90486 Stress Test Supervsn W/Out I/R Completed 11/05/2018 41107 Neurostimulator Pulse Generator Analysis W/O Completed Reprogramming 10/03/2018 77018 EKG Tracing & Interpretation Completed 08/09/2018 34634 ECHO Transthorasic Realtime 2D W Doppler & Color Flow Completed Hosp 09/04/2016 25569869 Colonoscopy Completed 09/22/2005 70103279 Colonoscopy Completed Medical Devices Description No Information Available Encounters Type Date Location Provider Dx Diagnosis Office Visit 12/30/2018 [facility] Drew Thomas, G20 Parkinson' s 2:30p Services Of [place] disease G47.33 Obstructive sleep apnea (adult) (pediatric) I95.1 Orthostatic hypotension Office Visit 11/29/2018 [facility] And Shira Loredo, G47.33 Obstructive 11:30a [facility] S[facility] NARVAE[facility], ATTENDING PATHOLOGIST- sleep apnea [facility] (adult) (pediatric) Office Visit 11/05/2018 [facility] Neri Curry Parkinson' s 12:15p Services Of [place] disease I95.1 Orthostatic hypotension Z96.89 Presence of other specified functional implants Office Visit 10/10/2018 12:15p [facility] Neri Curry [facility]'s [facility] Josue disease I95.1 Orthostatic hypotension Office Visit 10/03/2018 3:20p [facility] Nahun Holder G20 Parkinson 's Of [facility] Josue Clay disease I95.1 Orthostatic hypotension Z96.89 Presence of other specified functional implants I45.19 Other right bundle-branch block R94.31 Abnormal electrocardiogram [ECG] [EKG] R06.00 Dyspnea, unspecified Office Visit 09/06/2018 12:15p [facility] Neri Curry [facility] [place] [place] disease R29.6 Repeated falls I95.1 Orthostatic hypotension Z91.81 History of falling Z96.89 Presence of other specified functional implants Office Visit 08/23/2018 2:00p [facility] Internal John Dyer I95.1 Orthostatic Medicine - [employer] DIRECTOR OF SCOUT WORK hypotension R29.6 Repeated falls G20 Parkinson's disease E53.8 Deficiency of other specified B group vitamins K21.9 Gastro-esophageal reflux disease without esophagitis Office Visit 08/14/2018 9:07a [facility] G20 Parkinson's Assoc,mark Castillo, ROGER disease Hospitalists I95.1 Orthostatic hypotension R29.6 Repeated falls Office Visit 08/13/2018 Neurohospitalist Brendan I95.1 Orthostatic 7:00a Clinic Dowd, N.P. hypotension G20 Parkinson's disease Z91.81 History of falling Office Visit 08/13/2018 [facility] I95.1 Orthostatic 9:06a Assoc,mark Castillo, DIRECTOR OF SCOUT WORK hypotension Hospitalists I10 Essential (primary) hypertension R29.6 Repeated falls G20 Parkinson's disease R41.0 Disorientation, unspecified D53.9 Nutritional anemia, unspecified Office Visit 08/12/2018 Neurohospitalist Brendan I95.1 Orthostatic 7:00a Clinic Nile N.PPriti hypotension G20 Parkinson's disease Z91.81 History of falling Office Visit 08/12/2018 [facility] I95.1 Orthostatic 9:06a Assoc,mark Castillo, DIRECTOR OF SCOUT WORK hypotension Hospitalists I10 Essential (primary) hypertension R29.6 Repeated falls G20 Parkinson's disease R41.0 Disorientation, unspecified D53.9 Nutritional anemia, unspecified Office Visit 08/11/2018 9:06a [facility] I95.1 Orthostatic Assoc,mark Galeas, DIRECTOR OF SCOUT WORK hypotension Hospitalists I10 Essential (primary) hypertension R29.6 Repeated falls R41.0 Disorientation, unspecified D53.9 Nutritional anemia, unspecified G20 Parkinson's disease Office Visit 08/11/2018 Neurohospitalist Eugenie Salter, G20 Parkinson's 7:00a Clinic Josue disease I95.1 Orthostatic hypotension R29.6 Repeated falls Office Visit 08/10/2018 Neurohospitalist Eugenie I95.1 Orthostatic 7:00a Clinic Josue Salter hypotension R29.6 Repeated falls G20 Parkinson's disease E53.8 Deficiency of other specified B group vitamins Office Visit 08/10/2018 9:06a [facility] I95.1 Orthostatic Assoc,mark Galeas, DIRECTOR OF SCOUT WORK hypotension Hospitalists I10 Essential (primary) hypertension R29.6 Repeated falls R41.0 Disorientation, unspecified D53.9 Nutritional anemia, unspecified G20 Parkinson's disease Office Visit 08/09/2018 7:00a Neurohospitalist Clarisa Snider, G20 Parkinson '[facility] MD disease I95.1 Orthostatic hypotension R29.6 Repeated falls Z96.89 Presence of other specified functional implants Office Visit 08/09/2018 9:05a [facility] I95.1 Orthostatic Assoc,mark Galeas DIRECTOR OF SCOUT WORK hypotension Hospitalists I10 Essential (primary) hypertension R29.6 Repeated falls R41.0 Disorientation, unspecified D53.9 Nutritional anemia, unspecified G20 Parkinson's disease Office Visit 08/08/2018 [facility] Sarita Morton, I95.1 Orthostatic 9:05a mark Justice M.D. hypotension Hospitalists G20 Parkinson's disease R29.6 Repeated falls N40.0 Benign prostatic hyperplasia without lower urinry tract symp Office Visit 08/08/2018 12:15p [facility] Drew Thomas, G20 Parkinson's Services Of Service Mechanic M.D. disease R29.6 Repeated falls I95.1 Orthostatic hypotension Office Visit 07/26/2018 12:30p [facility] Derw Thomas, R29.6 Repeated falls Services Of Service Mechanic M.D. G20 Parkinson's disease I95.1 Orthostatic hypotension Assessments Date Code Description Provider 01/14/2019 G47.33 Obstructive sleep apnea (adult) Shira Loredo DNP, RN, (pediatric) [facility] 01/06/2019 G20 Parkinson's disease Drew Thomas M.D. 01/06/2019 G47.33 Obstructive sleep apnea (adult) Drew Thomas M.D. (pediatric) 01/06/2019 I95.1 Orthostatic hypotension Drew Thomas M.D. 01/06/2019 Z45.42 Encounter for adjustment and Drew Thomas M.D. management of neurostimulator 12/30/2018 G20 Parkinson's disease Drew Thomas M.D. 12/30/2018 G47.33 Obstructive sleep apnea (adult) Drew Thomas M.D. (pediatric) 12/30/2018 I95.1 Orthostatic hypotension Drew Thomas M.D. 11/29/2018 G47.33 Obstructive sleep apnea (adult) Shira Loredo DNP, RN, (pediatric) [facility] 11/27/2018 Z00.00 Encounter for general adult medical [...] functional implants 08/23/2018 I95.1 Orthostatic hypotension John Dyer NP 08/23/2018 R29.6 Repeated falls John Dyer NP 08/23/2018 G20 Parkinson's disease John Dyer NP 08/23/2018 E53.8 Deficiency of other specified B John Dyer NP group vitamins 08/23/2018 K21.9 Gastro-esophageal reflux disease John Dyer NP without esophagitis 08/14/2018 G20 Parkinson's disease Radha Castillo NP 08/14/2018 I95.1 Orthostatic hypotension Radha Jonathan, DIRECTOR OF SCOUT WORK 08/14/2018 R29.6 Repeated falls Radha Burch, DIRECTOR OF SCOUT WORK 08/13/2018 I95.1 Orthostatic hypotension Brendan Dowd, N.P. 08/13/2018 G20 Parkinson's disease Brendan Dowd, N.P. 08/13/2018 Z91.81 History of falling Brendan Dowd, N.P. 08/13/2018 I95.1 Orthostatic hypotension Radha Castillo, DIRECTOR OF SCOUT WORK 08/13/2018 I10 Essential (primary) hypertension Radha Castillo, DIRECTOR OF SCOUT WORK 08/13/2018 R29.6 Repeated falls Radha Castillo, DIRECTOR OF SCOUT WORK 08/13/2018 G20 Parkinson's disease Radha Castillo, DIRECTOR OF SCOUT WORK 08/13/2018 R41.0 Disorientation, unspecified Radha Castillo, DIRECTOR OF SCOUT WORK 08/13/2018 D53.9 Nutritional anemia, unspecified Radha Castillo, DIRECTOR OF SCOUT WORK 08/12/2018 I95.1 Orthostatic hypotension Brendan Dowd, N.P. 08/12/2018 G20 Parkinson's disease Brendan Dowd, N.P. 08/12/2018 Z91.81 History of falling Brendan Dowd, N.P. 08/12/2018 I95.1 Orthostatic hypotension Radha Jonathan, DIRECTOR OF SCOUT WORK 08/12/2018 I10 Essential (primary) hypertension Radha Burch, DIRECTOR OF SCOUT WORK 08/12/2018 R29.6 Repeated falls Radha Burch, DIRECTOR OF SCOUT WORK 08/12/2018 G20 Parkinson's disease Radha Burch, DIRECTOR OF SCOUT WORK 08/12/2018 R41.0 Disorientation, unspecified Radha Castillo, DIRECTOR OF SCOUT WORK 08/12/2018 D53.9 Nutritional anemia, unspecified Radha Castillo, DIRECTOR OF SCOUT WORK 08/11/2018 G20 Parkinson's disease Eugenie Salter M.D. 08/11/2018 I95.1 Orthostatic hypotension Mayelin Shortle, DIRECTOR OF SCOUT WORK 08/11/2018 I95.1 Orthostatic hypotension Eugenie Salter M.D. 08/11/2018 I10 Essential (primary) hypertension Mayelin Shortle, DIRECTOR OF SCOUT WORK 08/11/2018 R29.6 Repeated falls Eugenie Salter M.D. 08/11/2018 R29.6 Repeated falls Mayelin Shortle, DIRECTOR OF SCOUT WORK 08/11/2018 R41.0 Disorientation, unspecified Mayelin Shortle, DIRECTOR OF SCOUT WORK 08/11/2018 D53.9 Nutritional anemia, unspecified Mayelin Shortle, DIRECTOR OF SCOUT WORK 08/11/2018 G20 Parkinson's disease Mayelin Shortle, DIRECTOR OF SCOUT WORK 08/10/2018 I95.1 Orthostatic hypotension Eugenie Salter M.D. 08/10/2018 I95.1 Orthostatic hypotension Mayelin Shortle, DIRECTOR OF SCOUT WORK 08/10/2018 R29.6 Repeated falls Eugenie Salter M.D. 08/10/2018 I10 Essential (primary) hypertension Mayelin Shortle, DIRECTOR OF SCOUT WORK 08/10/2018 G20 Parkinson's disease Eugenie Salter M.D. 08/10/2018 R29.6 Repeated falls Mayelin Shortle, DIRECTOR OF SCOUT WORK 08/10/2018 E53.8 Deficiency of other specified B Eugenie Salter M.D. group vitamins 08/10/2018 R41.0 Disorientation, unspecified Mayelin Shortle, DIRECTOR OF SCOUT WORK 08/10/2018 D53.9 Nutritional anemia, unspecified Mayelin Shortle, DIRECTOR OF SCOUT WORK 08/10/2018 G20 Parkinson's disease Mayelin Shortle, DIRECTOR OF SCOUT WORK 08/09/2018 G20 Parkinson's disease Clarisa Snider MD 08/09/2018 I95.1 Orthostatic hypotension Mayelin Shortle, DIRECTOR OF SCOUT WORK 08/09/2018 I95.1 Orthostatic hypotension Clarisa Snider MD 08/09/2018 I95.1 Orthostatic hypotension Collins Knox, [facility] 08/09/2018 R29.6 Repeated falls Clarisa Snider MD 08/09/2018 I10 Essential (primary) hypertension Mayelin Shortle, DIRECTOR OF SCOUT WORK 08/09/2018 Z96.89 Presence of other specified Clarisa Snider MD functional implants 08/09/2018 R29.6 Repeated falls Mayelin Shortle, DIRECTOR OF SCOUT WORK 08/09/2018 R41.0 Disorientation, unspecified Mayelin Shortle, DIRECTOR OF SCOUT WORK 08/09/2018 D53.9 Nutritional anemia, unspecified Mayelin Shortle, DIRECTOR OF SCOUT WORK 08/09/2018 G20 Parkinson's disease Maeylin Shortle, DIRECTOR OF SCOUT WORK 08/08/2018 I95.1 Orthostatic hypotension Sarita Morton M.D. 08/08/2018 G20 Parkinson's disease Drew Thomas M.D. 08/08/2018 G20 Parkinson's disease Sarita Morton M.D. 08/08/2018 R29.6 Repeated falls Drew Thomas M.D. 08/08/2018 R29.6 Repeated falls Sarita Morton M.D. 08/08/2018 I95.1 Orthostatic hypotension Drew Thomas M.D. 08/08/2018 N40.0 Benign prostatic hyperplasia without Sarita Morton M.D. lower urinry tract symp 07/26/2018 R29.6 Repeated falls Drew Thomas M.D. 07/26/2018 G20 Parkinson's disease Drew Thomas M.D. 07/26/2018 I95.1 Orthostatic hypotension Drew Thomas M.D. Plan of Treatment Future Appointment(s):03/05/2019 2:30 pm - Shira Loredo DNP, RN, ATTENDING PATHOLOGIST- at [facility]02/10/2019 12:00 pm - Drew Thomas M.D. at [facility]05/22/2019 11:10 am - Eyad Blackmon MD at [facility] [place]54/22/2019 - Shira Loredo DNP, RN, ATTENDING PATHOLOGIST-BCG47.33 Obstructive sleep apnea (adult) (pediatric)Follow up:6 - 8 weeksRecommendations: Continue PAP device, Benefitting and compliant with treatment. Tril airtouch FFM (large fitted today) Cleaning Wipe off mask daily (baby wipe-no scent, or warm water) Do not submerge the Airtouch cushion in water. Clean mask frame, tubing, filter, and water chamber weekly in mild no scent dish soap and water. Hang to dry. If you have any sleepiness while driving you MUST avoid operating a vehicle or machinery. If you have difficulty with your equipment, or need to replace your mask or hoses, please contact your homecare agency. A weight change of 20 pounds or more may have an effect on your equipment; if you are experiencing problems please call for an appointment. If you have any further questions, please call the [facility] at [phone]. Functional Status Description No Information Available Mental Status Description No Information Available Referrals Description No Information Available
--- OUTSIDE RECORDS SUMMARY | 2019-03-04 11:21 | XMS REPORT | Continuity of Care Document ---
:1945 External Reference #:[id number] Author Name Brendan Dowd N.P. 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 Onset: 08/08/2013 Edema Keyla TraceyD. Onset: 08/08/2013 Difficulty breathing Sarah Muniz MD Onset: 10/01/2014 Obstructive sleep apnea of adult Shira Loredo DNP, RN, [facility] Onset: Note: Mild. 07/24/14: AHI 7.7, [...] Unknown Quit in 1982 Smoking Status Reviewed: 01/30/19 Quit in 1982 ETOH Use Consumes 1 [...] M.D. Capsules DR Daily Compression 2Pair R60.0 Danny Mir MD 07/12/2018 Stockings Misc Roller Walker S80.01xA Danny Mir MD 06/12/2018 [facility] [place] G20 Sinemet CR 2 tabs by mouth four 360tabs Brendan Dowd, 06/04/2018 25-100mg Tablets times a day N.P. [...] CPT Code Status Date Vaccine Lot # [id number] Given 12/11/2017 Fluzone High Dose 96260 Given 01/14/2016 Fluzone High Dose 81941 Given 08/31/2014 Tdap - Tetanus/Diptheria/Acellular Pertussis [id number] 86420 Given 08/31/2014 Pneumococcal Conjugate Vaccine 13 Valent For [id number] Intramuscular Use 60778 Given 07/28/2010 Pneumonia Vaccine [id number] 43343 Given 01/14/2009 Influenza Virus 3Yrs & Over 40495 Given 09/07/2008 Zoster (Zostavax) 87701 Given 01/01/2008 Influenza Virus 3Yrs & Over 64294 Given 07/13/2004 Td (History By Patient) Vital Signs Date Vital Result Comment 01/30/2019 2:03pm Height 70 inches 5'10" Weight 175.00 lb Heart Rate 72 /min BP Systolic Sitting 142 mmHg BP Diastolic Sitting 80 mmHg Respiratory Rate 19 /min BMI (Body Mass Index) 25.1 kg/m2 01/14/2019 2:31pm Height 70 inches 5'10" Weight 184.12 lb Heart Rate 56 /min BP Systolic Sitting 160 mmHg Lue reg cuff BP Diastolic Sitting 112 mmHg Lue reg cuff O2 % BldC Oximetry 97 % On Ra BMI (Body Mass Index) 26.4 kg/m2 Results Test Acquired Date Facility Test Result H/L Range Note CBC Auto 08/08/2018 [facility] White Blood 5.8 10^3/uL Normal 3.5-10.[address] [place] [address] [phone] Red Blood Count 4.16 10^6/uL Low 4.18-5.48 [...] Blood Cells % 0.0 Laboratory test 08/08/2018 [facility] Lactic Acid 1.3 mmol/L Normal 0.5-2.0 [address] [place] [address] [phone] Troponin-I (TnI) 0.00 ng/mL <0.04 2 Comp Metabolic 08/08/2018 [facility] Sodium 138 mmol/L Normal 135-145 Panel [address] [place] [address] [phone] Potassium 4.5 mmol/L Normal 3.5-5.0 Chloride 104 [...] Egfr 109.9 >60 3 Laboratory test 08/08/2018 [facility] Magnesium 2.0 mg/dL Normal 1.9-2.7 finding [address] [place] [address] [phone] TSH (Thyroid Stim Horm) 1.16 mcIU/mL Normal 0.34-5.60 Urinalysis Profile 08/08/2018 [facility] Urine Color Straw [address] [place] [address] [phone] Urine Appearance Clear Urine Specific [place] 1.008 Low 1.010-1.030 Urine pH 6.0 Normal 5-9 Urine Urobilinogen Negative Negative Urine Ketones Negative Negative Urine Protein Negative Negative Urine Leukocytes Negative Negative Urine Blood Negative Negative Urine Nitrite Negative Negative Urine Bilirubin Negative Negative Urine Glucose Negative Negative 1 [facility] Severe Sepsis and Septic Shock Management Bundle Measure requires all lactic acids initially measuring >2.0 mmol/L be repeated. 2 Troponin-I testing on Plasma Separator Tubes (PST) has a known false positive rate of 0.20-0.40%. All positive troponins reflex immediately to secondary confirmatory testing. Using the [employer] Access Immunoassay systems, the 99th percentile upper [...] 15-29 5 Kidney failure <15 (or dialysis) Procedures Date Code Description Status 01/06/2019 98329 With Brain Neurostimulator Pulse Generator, First 15 Completed Minutes 01/03/2019 79823 Stress ECHO Interpretation/Report Hospital Completed 01/03/2019 82272 Stress Test Supervsn W/Out I/R Completed 01/03/2019 37083 Stress Test Supervsn W/Out I/R Completed 11/05/2018 49206 Neurostimulator Pulse Generator Analysis W/O Completed Reprogramming 10/03/2018 11562 EKG Tracing & Interpretation Completed 08/09/2018 15788 ECHO Transthorasic Realtime 2D W Doppler & Color Flow Completed Hosp 09/04/2016 18006831 Colonoscopy Completed 09/22/2005 60890205 Colonoscopy Completed Medical Devices Description No Information Available Encounters Type Date Location Provider Dx Diagnosis Office Visit 01/14/2019 [facility] Shira Loredo, G47.33 Obstructive sleep 2:30p [facility] FNP-BC apnea (adult) 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 (pediatric) [facility], G20 Parkinson' s 2:30p Services Of Nena RamiresDPriti disease G47.33 Obstructive sleep apnea (adult) (pediatric) I95.1 Orthostatic hypotension Office Visit 11/29/2018 [facility] Shira Loredo, G47.33 Obstructive 11:30a [facility] FNP-BC sleep apnea [facility] (adult) (pediatric) Office Visit 11/05/2018 [facility] Neri Curry Parkinson' s 12:15p Services Of [facility] Josue disease I95.1 Orthostatic hypotension Z96.89 Presence of other specified functional implants Office Visit 10/10/2018 12:15p [facility] Neri Curry Parkinson's [facility] Josue disease I95.1 Orthostatic hypotension Office Visit 10/03/2018 3:20p [facility] Nahun Holder G20 Parkinson 's Of [facility] Josue Clay disease I95.1 Orthostatic hypotension Z96.89 Presence of other specified functional implants I45.19 Other right bundle-branch block R94.31 Abnormal electrocardiogram [ECG] [EKG] R06.00 Dyspnea, unspecified Office Visit 09/06/2018 12:15p [facility] Neri Curry [facility] Josue disease R29.6 Repeated falls I95.1 Orthostatic hypotension Z91.81 History of falling Z96.89 Presence of other specified functional implants Office Visit 08/23/2018 2:00p [facility] Internal John Gomez, I95.1 Orthostatic Medicine - [employer] SILK SCREEN PRINTER hypotension R29.6 Repeated falls G20 Parkinson's disease E53.8 Deficiency of other specified B group vitamins K21.9 Gastro-esophageal reflux disease without esophagitis Office Visit 08/14/2018 9:07a [facility] G20 Parkinson's Assoc,mark Castillo, SILK SCREEN PRINTER disease Hospitalists I95.1 Orthostatic hypotension R29.6 Repeated falls Office Visit 08/13/2018 Neurohospitalist Brendan I95.1 Orthostatic 7:00a Clinic Dowd, N.P. hypotension G20 Parkinson's disease Z91.81 History of falling Office Visit 08/13/2018 [facility] I95.1 Orthostatic 9:06a Assoc,mark Castillo, SILK SCREEN PRINTER hypotension Hospitalists I10 Essential (primary) hypertension R29.6 Repeated falls G20 Parkinson's disease R41.0 Disorientation, unspecified D53.9 Nutritional anemia, unspecified Office Visit 08/12/2018 Neurohospitalist Brendan I95.1 Orthostatic 7:00a Clinic Dowd, N.P. hypotension G20 Parkinson's disease Z91.81 History of falling Office Visit 08/12/2018 [facility] I95.1 Orthostatic 9:06a Assocmark NP hypotension Hospitalists I10 Essential (primary) hypertension R29.6 Repeated falls G20 Parkinson's disease R41.0 Disorientation, unspecified D53.9 Nutritional anemia, unspecified Office Visit 08/11/2018 9:06a [facility] I95.1 Orthostatic Assoc,mark Galeas SILK SCREEN PRINTER hypotension Hospitalists I10 Essential (primary) hypertension R29.6 [...] B group vitamins Office Visit 08/10/2018 9:06a [facility] I95.1 Orthostatic Assocmark NP hypotension Hospitalists I10 Essential (primary) hypertension R29.6 Repeated falls R41.0 Disorientation, unspecified D53.9 Nutritional anemia, unspecified G20 Parkinson's disease Office Visit 08/09/2018 7:00a Neurohospitalist Clarisa Snider, 0 [facility] MD disease I95.1 Orthostatic hypotension R29.6 Repeated falls Z96.89 Presence of other specified functional implants Office Visit 08/09/2018 9:05a [facility] I95.1 Orthostatic Assocmark NP hypotension Hospitalists I10 Essential (primary) hypertension R29.6 Repeated falls R41.0 Disorientation, unspecified D53.9 Nutritional anemia, unspecified G20 Parkinson's disease Office Visit 08/08/2018 [facility] Sarita Morton I95.1 Orthostatic 9:05a Assmark conley M.D. hypotension Hospitalists G20 Parkinson's disease R29.6 Repeated falls N40.0 Benign prostatic hyperplasia without lower urinry tract symp Office Visit 08/08/2018 12:15p [facility] Drew Thomas, G20 Parkinson's [facility] Josue disease R29.6 Repeated falls I95.1 Orthostatic hypotension Assessments Date Code Description Provider 01/30/2019 G20 Parkinson's disease Brendan Dowd, N.P. 01/30/2019 I95.1 Orthostatic hypotension Brendan Dowd, N.P. 01/14/2019 G47.33 Obstructive sleep apnea (adult) Shira Loredo DNP, RN, (pediatric) [facility] 01/06/2019 G20 Parkinson's disease Drew Thomas M.D. [...] apnea (adult) Shira Loredo DNP, RN, (pediatric) [facility] 11/27/2018 Z00.00 Encounter for general adult medical [...] Dyer NP 08/23/2018 G20 Parkinson's disease John Deyr NP 08/23/2018 E53.8 Deficiency of other specified B John Dyer NP group vitamins 08/23/2018 K21.9 Gastro-esophageal reflux disease John Dyer NP without esophagitis 08/14/2018 G20 Parkinson's disease Radha Castillo NP 08/14/2018 I95.1 Orthostatic hypotension Radha Jonathan, SILK SCREEN PRINTER 08/14/2018 R29.6 Repeated falls Radha Burch, SILK SCREEN PRINTER 08/13/2018 I95.1 Orthostatic hypotension Brendan Dowd, N.P. 08/13/2018 G20 Parkinson's disease Brendan Dowd, N.P. 08/13/2018 Z91.81 History of falling Brendan Dowd, N.P. 08/13/2018 I95.1 Orthostatic hypotension Radha Castillo, SILK SCREEN PRINTER 08/13/2018 I10 Essential (primary) hypertension Radha Castillo, SILK SCREEN PRINTER 08/13/2018 R29.6 Repeated falls Radha Castillo, SILK SCREEN PRINTER 08/13/2018 G20 Parkinson's disease Radha Castillo, SILK SCREEN PRINTER 08/13/2018 R41.0 Disorientation, unspecified Radha Castillo, SILK SCREEN PRINTER 08/13/2018 D53.9 Nutritional anemia, unspecified Radha Castillo, SILK SCREEN PRINTER 08/12/2018 I95.1 Orthostatic hypotension Brendan Dowd, N.P. 08/12/2018 G20 Parkinson's disease Brendan Dowd, N.P. 08/12/2018 Z91.81 History of falling Brendan Dowd, N.P. 08/12/2018 I95.1 Orthostatic hypotension Radha Castillo, SILK SCREEN PRINTER 08/12/2018 I10 Essential (primary) hypertension Radha Burch, SILK SCREEN PRINTER 08/12/2018 R29.6 Repeated falls Radha Castillo, SILK SCREEN PRINTER 08/12/2018 G20 Parkinson's disease Radha Burch, SILK SCREEN PRINTER 08/12/2018 R41.0 Disorientation, unspecified Radha Castillo, SILK SCREEN PRINTER 08/12/2018 D53.9 Nutritional anemia, unspecified Radha Castillo, SILK SCREEN PRINTER 08/11/2018 G20 Parkinson's disease Eugenie Salter M.D. 08/11/2018 I95.1 Orthostatic hypotension Mayelin Gudelia, SILK SCREEN PRINTER 08/11/2018 I95.1 Orthostatic hypotension Eugenie Salter M.D. 08/11/2018 I10 Essential (primary) hypertension Mayelin Galeas, SILK SCREEN PRINTER 08/11/2018 R29.6 Repeated falls Eugenie Salter M.D. 08/11/2018 R29.6 Repeated falls Mayelin Shortle, SILK SCREEN PRINTER 08/11/2018 R41.0 Disorientation, unspecified Mayelin Shortle, SILK SCREEN PRINTER 08/11/2018 D53.9 Nutritional anemia, unspecified Mayelin Shortle, SILK SCREEN PRINTER 08/11/2018 G20 Parkinson's disease Mayelin Shortle, SILK SCREEN PRINTER 08/10/2018 I95.1 Orthostatic hypotension Eugenie Salter M.D. 08/10/2018 I95.1 Orthostatic hypotension Mayelin Shortle, SILK SCREEN PRINTER 08/10/2018 R29.6 Repeated falls Eugenie Salter M.D. 08/10/2018 I10 Essential (primary) hypertension Mayelin Shortle, SILK SCREEN PRINTER 08/10/2018 G20 Parkinson's disease Eugenie Salter M.D. 08/10/2018 R29.6 Repeated falls Mayelin Shortle, SILK SCREEN PRINTER 08/10/2018 E53.8 Deficiency of other specified B Eugenie Salter M.D. group vitamins 08/10/2018 R41.0 Disorientation, unspecified Mayelin Shortle, SILK SCREEN PRINTER 08/10/2018 D53.9 Nutritional anemia, unspecified Mayelin Shortle, SILK SCREEN PRINTER 08/10/2018 G20 Parkinson's disease Mayelin Shortle, SILK SCREEN PRINTER 08/09/2018 G20 Parkinson's disease Clarisa Snider MD 08/09/2018 I95.1 Orthostatic hypotension Mayelin Shortle, SILK SCREEN PRINTER 08/09/2018 I95.1 Orthostatic hypotension Clarisa Snider MD 08/09/2018 I95.1 Orthostatic hypotension Collins Knox DO [facility] 08/09/2018 R29.6 Repeated falls Clarisa Snider MD 08/09/2018 I10 Essential (primary) hypertension Mayelin Shortle, SILK SCREEN PRINTER 08/09/2018 Z96.89 Presence of other specified Clarisa Snider MD functional implants 08/09/2018 R29.6 Repeated falls Mayelin Shortle, SILK SCREEN PRINTER 08/09/2018 R41.0 Disorientation, unspecified Mayelin Shortle, SILK SCREEN PRINTER 08/09/2018 D53.9 Nutritional anemia, unspecified Mayelin Shortle, SILK SCREEN PRINTER 08/09/2018 G20 Parkinson's disease Mayelin Shortle, SILK SCREEN PRINTER 08/08/2018 I95.1 Orthostatic hypotension Sarita Morton M.D. 08/08/2018 G20 Parkinson's disease Drew Thomas M.D. 08/08/2018 G20 Parkinson's disease Sarita Morton M.D. 08/08/2018 R29.6 Repeated falls Drew Thomas M.D. 08/08/2018 R29.6 Repeated falls Sarita Morton M.D. 08/08/2018 I95.1 Orthostatic hypotension Drew Thomas M.D. 08/08/2018 N40.0 Benign prostatic hyperplasia without Sarita Morton M.D. lower urinry tract symp Plan of Treatment Future Appointment(s):03/05/2019 2:30 pm - Shira Loredo DNP, RN, [facility] at [facility]05/22/2019 11:10 am - Eyad Blackmon MD at [facility] [id number]/07/2019 - Brendan Dowd, N.PPritiG20 Parkinson's diseaseNew Medication:Mirapex ER 0.375 mg - 1 tablet dailyFollow up:keep follow up with Dr Gonzalez95.1 Orthostatic hypotension Functional Status Description No Information Available Mental Status Description No Information Available Referrals Description No Information Available
--- OUTSIDE RECORDS SUMMARY | 2019-03-04 11:21 | XMS REPORT | Continuity of Care Document ---
:1945 External Reference #:[id number] Author Name Drew Thomas M.D. 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 Onset: 11/24/2010 Allergic rhinitis Geraldo Saab M.D. Onset: 11/24/2010 Arthralgia of the lower leg Geraldo Saab M.D. Onset: 04/19/2011 Malaise and fatigue Geradlo Saab M.D. Onset: 06/20/2011 Urinary tract infectious [...] apnea of adult Shira Loredo DNP, RN, Onset: 10/06/2014 [facility] Dizziness and giddiness Drew Thomas M.D. Onset: [...] Unknown Quit in 1982 Smoking Status Reviewed: 01/06/19 Quit in 1982 ETOH Use Consumes 1 [...] a day 30tabs G20 Drew Thomas, 10/10/2018 Josue 0.5mg Tablets Omeprazole Take One Capsule 30caps K21.9 John Dyer NP 08/23/2018 20mg By Mouth Once Capsules DR Daily Compression 2Pair R60.0 Danny Mir MD 07/12/2018 [place] [facility]cedo S80.01xA Danny Mir MD 06/12/2018 [facility] [place] Sinemet CR 2 tabs by mouth [...] CPT Code Status Date Vaccine Lot # [id number] Given 12/11/2017 Fluzone High Dose 62354 Given 01/14/2016 Fluzone High Dose 60366 Given 08/31/2014 Tdap - Tetanus/Diptheria/Acellular Pertussis [id number] 23160 Given 08/31/2014 Pneumococcal Conjugate Vaccine 13 Valent For [id number] Intramuscular Use 94649 Given 07/28/2010 Pneumonia Vaccine [id number] 53879 Given 01/14/2009 Influenza Virus 3Yrs & Over 68340 Given 09/07/2008 Zoster (Zostavax) 32219 Given 01/01/2008 Influenza Virus 3Yrs & Over 65506 Given 07/13/2004 Td (History By Patient) Vital Signs Date Vital Result Comment 01/06/2019 4:01pm Height 70 inches 5'10" Weight 175.00 lb Heart Rate 64 /min BP Systolic 142 mmHg BP Diastolic 100 mmHg BMI (Body Mass Index) 25.1 kg/m2 12/30/2018 2:37pm Height 70 inches 5'10" Weight 175.00 lb Heart Rate 72 /min BP Systolic 132 mmHg BP Diastolic 90 mmHg BMI (Body Mass Index) 25.1 kg/m2 Results Test Date Facility Test Result H/L Range Note CBC Auto 08/08/2018 [facility] White Blood 5.8 10^3/uL Normal 3.5-10.[address] [place] [address] [phone] Red Blood Count 4.16 10^6/uL Low 4.18-5.48 [...] Blood Cells % 0.0 Laboratory test 08/08/2018 [facility] Lactic Acid 1.3 mmol/L Normal 0.5-2.0 1 finding [address] [place] [address] [phone] Troponin-I (TnI) 0.00 ng/mL <0.04 2 Comp Metabolic 08/08/2018 [facility] Sodium 138 mmol/L Normal 135-145 Panel [address] [place] [address] [phone] Potassium 4.5 mmol/L Normal 3.5-5.0 Chloride 104 [...] Egfr 109.9 >60 3 Laboratory test 08/08/2018 [facility] Magnesium 2.0 mg/dL Normal 1.9-2.7 finding [address] [place] [address] [phone] TSH (Thyroid Stim Horm) 1.16 mcIU/mL Normal 0.34-5.60 Urinalysis Profile 08/08/2018 [facility] Urine Color Straw [address] [place] [address] [phone] Urine Appearance Clear Urine Specific [place] 1.008 Low 1.010-1.030 Urine pH 6.0 Normal 5-9 Urine Urobilinogen Negative Negative Urine Ketones Negative Negative Urine Protein Negative Negative Urine Leukocytes Negative Negative Urine Blood Negative Negative Urine Nitrite Negative Negative Urine Bilirubin Negative Negative Urine Glucose Negative Negative Laboratory test 07/26/2018 [facility] PSA Diagnostic 1.048 ng/ mL 0-4.0 4 finding [address] [place] [address] [phone] 1 [facility] Severe Sepsis and Septic Shock Management Bundle Measure requires all lactic acids initially measuring >2.0 mmol/L be repeated. 2 Troponin-I testing on Plasma Separator Tubes (PST) has a known false positive rate of 0.20-0.40%. All positive troponins reflex immediately to secondary confirmatory testing. Using the Visual Unity DxI 800 Access Immunoassay systems, the 99th percentile upper [...] Serum levels of PSA measured using the Zbird DXI Hybritech immunoassay should not be interpreted as absolute evidence of the presence or absence of disease. The PSA value should be used in conjunction with other pertinent clinical diagnostic procedures. The values obtained with different assay methods or kits cannot be used interchangeably. Procedures Date Code Description Status 01/03/2019 93191 ECHO Transthorasic Realtime 2D W Doppler & Color Flow Completed Hosp 11/05/2018 04752 Neurostimulator Pulse Generator Analysis W/O Completed Reprogramming 10/03/2018 57065 EKG Tracing & Interpretation Completed 08/09/2018 26654 ECHO Transthorasic Realtime 2D W Doppler & Color Flow Completed Hosp 07/10/2018 89296 EKG Tracing & Interpretation Completed 09/04/2016 [id number] Colonoscopy Completed 09/22/2005 [id number] Colonoscopy Completed Medical Devices Description No Information Available Encounters Type Date Location Provider Dx Diagnosis Office Visit 01/06/2019 Neri Haynes [facility]' [facility] 4:15p [facility] disease G47.33 Obstructive sleep apnea (adult) (pediatric) I95.1 Orthostatic hypotension Office Visit 12/30/2018 2:30p Neri Haynes [facility] [place] disease G47.33 Obstructive sleep apnea (adult) (pediatric) I95.1 Orthostatic hypotension Office Visit 11/29/2018 Pulmonology And Shira Loredo G47.33 Obstructive 11:30a [facility] SON NARVAEZ, DOUGH SHEETER- sleep apnea Nena (adult) (pediatric) Office Visit 11/05/2018 Neri Haynes Parkinson' s 12:15p Services [facility] Josue disease I95.1 Orthostatic hypotension Z96.89 Presence of other specified functional implants Office Visit 10/10/2018 12:15p [facility] Drew Thomas Nguyễn [facility] Josue disease I95.1 Orthostatic hypotension Office Visit 10/03/2018 3:20p [facility] [place] [facility] Nahun Holder G2Nguyễn Parkinson '[facility] Josue Clay disease I95.1 Orthostatic hypotension Z96.89 Presence of other specified functional implants I45.19 Other right bundle-branch block R94.31 Abnormal electrocardiogram [ECG] [EKG] R06.00 Dyspnea, unspecified Office Visit 09/06/2018 12:15p [facility] Drew Thomas Nguyễn [facility] Josue disease R29.6 Repeated falls I95.1 Orthostatic hypotension Z91.81 History of falling Z96.89 Presence of other specified functional implants Office Visit 08/23/2018 2:00p [facility] Internal John Dyer I95.1 Orthostatic Medicine - Ccmob VALUER hypotension R29.6 Repeated falls G20 Parkinson's disease E53.8 Deficiency of other specified B group vitamins K21.9 Gastro-esophageal reflux disease without esophagitis Office Visit 08/14/2018 9:07a [facility] G20 Parkinson's Assoc,mark Castillo, VALUER disease Hospitalists I95.1 Orthostatic hypotension R29.6 Repeated falls Office Visit 08/13/2018 Neurohospitalist Brendan I95.1 Orthostatic 7:00a Clinic Dowd, N.P. hypotension G20 Parkinson's disease Z91.81 History of falling Office Visit 08/13/2018 [facility] I95.1 Orthostatic 9:06a Assoc,mark Castillo, VALUER hypotension Hospitalists I10 Essential (primary) hypertension R29.6 Repeated falls G20 Parkinson's disease R41.0 Disorientation, unspecified D53.9 Nutritional anemia, unspecified Office Visit 08/12/2018 Neurohospitalist Brendan I95.1 Orthostatic 7:00a Clinic Dowd, N.P. hypotension G20 Parkinson's disease Z91.81 History of falling Office Visit 08/12/2018 [facility] I95.1 Orthostatic 9:06a Assoc,pc Jonathan, VALUER hypotension Hospitalists I10 Essential (primary) hypertension R29.6 Repeated falls G20 Parkinson's disease R41.0 Disorientation, unspecified D53.9 Nutritional anemia, unspecified Office Visit 08/11/2018 9:06a [facility] I95.1 Orthostatic Assoc,pc Shortle, VALUER hypotension Hospitalists I10 Essential (primary) hypertension R29.6 Repeated falls R41.0 Disorientation, unspecified D53.9 Nutritional anemia, unspecified G20 Parkinson's disease Office Visit 08/11/2018 Neurohospitalist Eugenie Salter, 0 Parkinson's 7:00a Clinic Josue disease I95.1 Orthostatic hypotension R29.6 Repeated falls Office Visit 08/10/2018 Neurohospitalist Eugenie I95.1 Orthostatic 7:00a Clinic Josue Salter hypotension R29.6 Repeated falls G20 Parkinson's disease E53.8 Deficiency of other specified B group vitamins Office Visit 08/10/2018 9:06a [facility] I95.1 Orthostatic Assoc,pc Shortsebastian, VALUER hypotension Hospitalists I10 Essential (primary) hypertension R29.6 Repeated falls R41.0 Disorientation, unspecified D53.9 Nutritional anemia, unspecified G20 Parkinson's disease Office Visit 08/09/2018 7:00a Neurohospitalist Clarisa Snider, 0 [facility] MD disease I95.1 Orthostatic hypotension R29.6 Repeated falls Z96.89 Presence of other specified functional implants Office Visit 08/09/2018 9:05a [facility] I95.1 Orthostatic Assoc,pc Shortle, VALUER hypotension Hospitalists I10 Essential (primary) hypertension R29.6 Repeated falls R41.0 Disorientation, unspecified D53.9 Nutritional anemia, unspecified G20 Parkinson's disease Office Visit 08/08/2018 [facility] Sarita Morton, I95.1 Orthostatic 9:05a Assocmark M.D. hypotension Hospitalists G20 Parkinson's disease R29.6 Repeated falls N40.0 Benign prostatic hyperplasia without lower urinry tract symp Office Visit 08/08/2018 12:15p [facility] Drew Thomas, G20 [facility] M.DPriti disease R29.6 Repeated falls I95.1 Orthostatic hypotension Office Visit 07/26/2018 12:30p [facility] Drew Thomas, R29.6 Repeated falls Services [facility] M.D. G20 Parkinson's disease I95.1 Orthostatic hypotension Office Visit 07/12/2018 3:00p [facility] Danny Mir, M25.561 Pain in at [place] right knee M25.461 Effusion, right knee R29.6 Repeated falls Office Visit 07/11/2018 4:00p [facility] Drew Thomas, G20 [facility] M.DPriti disease I95.1 Orthostatic hypotension R29.6 Repeated falls G24.9 Dystonia, unspecified Office Visit 07/10/2018 3:40p [facility] Nahun Holder G20 Parkinson 's Josue Clay disease R29.6 Repeated falls I95.1 Orthostatic hypotension I49.5 Sick sinus syndrome Assessments Date Code Description Provider 01/06/2019 G20 Parkinson's disease Drew Thomas M.D. 01/06/2019 G47.33 Obstructive sleep apnea (adult) Drew Thomas M.D. (pediatric) 01/06/2019 I95.1 Orthostatic hypotension Drew Thomas M.D. 12/30/2018 G20 Parkinson's disease Drew Thomas M.D. 12/30/2018 G47.33 Obstructive sleep apnea (adult) Drew Thomas M.D. (pediatric) 12/30/2018 I95.1 Orthostatic hypotension Drew Thomas M.D. 11/29/2018 G47.33 Obstructive sleep apnea (adult) Shira Loredo DNP, RN, DOUGH SHEETER- (pediatric) 11/27/2018 Z00.00 Encounter for general adult Geraldo Saab M.D. medical examination without abnormal findings 11/27/2018 G20 Parkinson's disease Geraldo Saab M.D. 11/27/2018 I95.1 Orthostatic hypotension Geraldo Saab M.D. 11/27/2018 K21.9 Gastro-esophageal reflux disease Geraldo Saab M.D. without esophagitis 11/27/2018 N40.0 Benign prostatic hyperplasia Geraldo Saab M.D. without lower urinary tract symptoms 11/27/2018 G47.33 Obstructive [...] Dyer NP 08/23/2018 R29.6 Repeated falls John Dyer, ROGER 08/23/2018 G20 Parkinson's disease John Dyer NP 08/23/2018 E53.8 Deficiency of other specified B John Dyer NP group vitamins 08/23/2018 K21.9 Gastro-esophageal reflux disease John Dyer NP without esophagitis 08/14/2018 G20 Parkinson's disease Radha Castillo, VALUER 08/14/2018 I95.1 Orthostatic hypotension Radha Castillo, VALUER 08/14/2018 R29.6 Repeated falls Radha Castillo, VALUER 08/13/2018 I95.1 Orthostatic hypotension Brendan Dowd, N.P. 08/13/2018 G20 Parkinson's disease Brendan Dowd, N.P. 08/13/2018 Z91.81 History of falling Brendan Dowd, N.P. 08/13/2018 I95.1 Orthostatic hypotension Radha Castillo, VALUER 08/13/2018 I10 Essential (primary) hypertension Radha Castillo, VALUER 08/13/2018 R29.6 Repeated falls Radha Castillo, VALUER 08/13/2018 G20 Parkinson's disease Radha Castillo, VALUER 08/13/2018 R41.0 Disorientation, unspecified Radha Castillo, VALUER 08/13/2018 D53.9 Nutritional anemia, unspecified Radha Castillo, VALUER 08/12/2018 I95.1 Orthostatic hypotension Brendan Dowd, N.P. 08/12/2018 G20 Parkinson's disease Brendan Dowd, N.P. 08/12/2018 Z91.81 History of falling Brendan Dowd, N.P. 08/12/2018 I95.1 Orthostatic hypotension Radha Castillo, VALUER 08/12/2018 I10 Essential (primary) hypertension Radha Castillo, VALUER 08/12/2018 R29.6 Repeated falls Radha Castillo, VALUER 08/12/2018 G20 Parkinson's disease Radha Castillo, VALUER 08/12/2018 R41.0 Disorientation, unspecified Radha Castillo, VALUER 08/12/2018 D53.9 Nutritional anemia, unspecified Radha Castillo, VALUER 08/11/2018 G20 Parkinson's disease Eugenie Salter M.D. 08/11/2018 I95.1 Orthostatic hypotension Mayelin Galeas, VALUER 08/11/2018 I95.1 Orthostatic hypotension Eugenie Salter M.D. 08/11/2018 I10 Essential (primary) hypertension Mayelin Shortle, VALUER 08/11/2018 R29.6 Repeated falls Eugenie Salter M.D. 08/11/2018 R29.6 Repeated falls Mayelin Shortle, VALUER 08/11/2018 R41.0 Disorientation, unspecified Mayelin Shortle, VALUER 08/11/2018 D53.9 Nutritional anemia, unspecified Mayelin Shortle, VALUER 08/11/2018 G20 Parkinson's disease Mayelin Shortle, VALUER 08/10/2018 I95.1 Orthostatic hypotension Eugenie Salter M.D. 08/10/2018 I95.1 Orthostatic hypotension Mayelin Shortle, VALUER 08/10/2018 R29.6 Repeated falls Eugenie Salter M.D. 08/10/2018 I10 Essential (primary) hypertension Mayelin Shortle, VALUER 08/10/2018 G20 Parkinson's disease Eugenie Salter M.D. 08/10/2018 R29.6 Repeated falls Mayelin Shortle, VALUER 08/10/2018 E53.8 Deficiency of other specified B Eugenie Salter M.D. group vitamins 08/10/2018 R41.0 Disorientation, unspecified Mayelin Shortle, VALUER 08/10/2018 D53.9 Nutritional anemia, unspecified Mayelin Shortle, VALUER 08/10/2018 G20 Parkinson's disease Mayelin Shortle, VALUER 08/09/2018 G20 Parkinson's disease Clarisa Snider MD 08/09/2018 I95.1 Orthostatic hypotension Mayelin Shortle, VALUER 08/09/2018 I95.1 Orthostatic hypotension Clarisa Snider MD 08/09/2018 I95.1 Orthostatic hypotension Collins Knox, DO [facility] 08/09/2018 R29.6 Repeated falls Clarisa Snider MD 08/09/2018 I10 Essential (primary) hypertension Mayelin Shortle, VALUER 08/09/2018 Z96.89 Presence of other specified Clarisa Snider MD functional implants 08/09/2018 R29.6 Repeated falls Mayelin Shortle, VALUER 08/09/2018 R41.0 Disorientation, unspecified Mayelin Shortle, VALUER 08/09/2018 D53.9 Nutritional anemia, unspecified Mayelin Gudelia, VALUER 08/09/2018 G20 Parkinson's disease Mayelin Gudelia, VALUER 08/08/2018 I95.1 Orthostatic hypotension Sarita Morton M.D. 08/08/2018 G20 Parkinson's disease Drew Thomas M.D. 08/08/2018 G20 Parkinson's disease Sarita Morton M.D. 08/08/2018 R29.6 Repeated falls Drew Thomas M.D. 08/08/2018 R29.6 Repeated falls Sarita Morton M.D. 08/08/2018 I95.1 Orthostatic hypotension Drew Thomas M.D. 08/08/2018 N40.0 Benign prostatic hyperplasia Sarita Morton M.D. without lower urinry tract symp 07/26/2018 R29.6 Repeated falls Drew Thomas M.D. 07/26/2018 G20 Parkinson's disease Drew Thomas M.D. 07/26/2018 I95.1 Orthostatic hypotension Drew Thomas M.D. 07/12/2018 M25.561 Pain in right knee Danny Mir MD 07/12/2018 M25.461 Effusion, right knee Danny Mir MD 07/12/2018 R29.6 Repeated falls Danny Mir MD 07/11/2018 G20 Parkinson's disease Drew Thomas M.D. 07/11/2018 I95.1 Orthostatic hypotension Drew Thomas M.D. 07/11/2018 R29.6 Repeated falls Drew Thomas M.D. 07/11/2018 G24.9 Dystonia, unspecified Drew Thomas M.D. 07/10/2018 G20 Parkinson's disease Nahun Clay M.D. 07/10/2018 R29.6 Repeated falls Nahun Clay M.D. 07/10/2018 I95.1 Orthostatic hypotension Nahun Clay M.D. 07/10/2018 I49.5 Sick sinus syndrome Nahun Clay M.D. Plan of Treatment Future Appointment(s):02/10/2019 12:00 pm - Drew Thomas M.D. at [place] [facility]01/14/2019 2:30 pm - Shira Loredo DNP, RN, DOUGH SHEETER- at [facility]05/22/2019 11:10 am - Eyad Blackmon MD at [facility] [email or web address]/14/2019 - Drew Thomas M.D.G20 Parkinson's diseaseFollow up:keep scheduled apptRecommendations:call me to let me know how you are fpxdqT03.33 Obstructive sleep apnea (adult) (pediatric)I95.1 Orthostatic hypotension Functional Status Description No Information Available Mental Status Description No Information Available Referrals Description No Information Available
--- NOTE | 2019-03-04 12:39 | UC ---
Back Pain HPI - HPI Summary HPI Summary: 74 yo male presents, accompanied by , with back pain. Pt tells me that he has a history of low back pain for many years. About 3 weeks ago he fell in his garden at home and since that time has had increasing pain in his lower back and right ribs. He has been taking tylenol and occasional ibuprofen for discomfort with little relief. He has severe parkinson's at baseline and has a DBS. Usually ambulates with a cane at baseline. Denies radiation of pain, numbness, tingling, constipation, saddle anesthesia, or loss of bowel/bladder control. No SOB or chest pain - History of Current Complaint Chief Complaint: UCBackPain Stated Complaint: BACKPAIN Time Seen by Provider: 03/04/19 12:39 Hx Obtained From: Patient Timing: Constant Severity Initially: Moderate Severity Currently: Severe Pain Intensity: 8 Pain Scale Used: 0-10 Numeric - Allergies/Home Medications Allergies/Adverse Reactions: Allergies Allergy/AdvReac Type Severity Reaction Status Date / Time ciprofloxacin [From Cipro] Allergy Unknown Verified 03/04/19 11:57 Reaction Details clopidogrel [From Plavix] Allergy Unknown Verified 03/04/19 11:57 Reaction Details minocycline Allergy Hives Verified 03/04/19 11:57 Home Medications: Home Medications Pramipexole Di-HCl [Pramipexole ER] 0.375 mg PO DAILY WITH MEAL 03/04/19 [ History Confirmed 03/04/19] PMH/Surg Hx/FS Hx/Imm Hx - Additional Past Medical History Additional PMH: SVT DBS Parkinson's HTN Anemia - Surgical History Surgical History: Yes Surgery Procedure, Year, and Place: T/A A CHILD, 1951, [facility]. 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 WISDOM TEETH 1971,. basal cell FACE AND BACK SEVERAL TIMES IN PAST 10-15 YRS,. hernia repair inguinal + umbilical. Deep Brain Stimulation electrodes in place + pacer 2018. tooth extraction d/t abscess 2018 - Family History Known Family History: Positive: Hypertension Negative: Diabetes - Social History Occupation: Retired Lives: With Family Alcohol Use: Daily Alcohol Amount: 1 drink per day Substance Use Type: None Smoking Status (MU): Former Smoker Type: Pipe Amount Used/How Often: PIPE Length of Time of Smoking/Using Tobacco: 6 months Have You Smoked in the Last Year: No When Did the Patient Quit Smoking/Using Tobacco: 1982 - Immunization History Most Recent Influenza Vaccination: 2018 Most Recent Tetanus Shot: 2015 Most Recent Pneumonia Vaccination: within 10 years Review of Systems All Other Systems Reviewed And Are Negative: No Constitutional: Positive: Negative Skin: Positive: Negative Respiratory: Positive: Negative Cardiovascular: Positive: Negative Neurovascular: Positive: Negative Musculoskeletal: Positive: Other: - Back pain Neurological: Positive: Negative Psychological: Positive: Negative Physical Exam - Summary Physical Exam Summary: GENERAL: NAD. WDWN. No pain distress. SKIN: No rashes, sores, lesions, or open wounds. NECK: Supple. FROM. Nontender. No lymphadenopathy. CHEST: CTAB. No r/r/w. No accessory muscle use. Breathing comfortably and in no distress. CV: Pulses intact. Cap refill <2seconds MSK: TTP over lumbar paraspinal muscles and right inferior scapula. Pain with flexion and extension of spine. Positive SLR b/l for low back pain without radiation. Strength 5/5 B/L LEs including dorsiflexion and plantar flexion. FROM B/L LEs. No edema. NEURO: Alert. Sensations intact B/L LEs L3-S1. Reflexes intact PSYCH: Age appropriate behavior. Triage Information Reviewed: Yes Vital Signs: Initial Vital Signs Temp 98.8 F 03/04/19 11:51 Pulse 73 03/04/19 11:51 Resp 18 03/04/19 11:51 BP 101/67 03/04/19 11:51 Pulse Ox 98 03/04/19 11:51 Laboratory Tests 03/04/19 12:41 POC Urine Color Dark yellow POC Urine Clarity Clear POC Urine pH 5.5 POC Ur Specif Riley 1.025 POC Urine Protein Negative POC Ur Glucose (UA) Negative POC Urine Ketones Negative POC Urine Blood Negative POC Urine Nitrite Negative POC Urine Bilirubin Negative POC Urine Urobilinogen 0.2 POC U Leukocyte Esteras Negative Vital Signs Reviewed: Yes Diagnostics - Radiology XR ribs Radiology Interpretation Completed By: Radiologist Summary of Radiographic Findings: REPORT AND IMPRESSION: #. No conspicuous RIGHT rib fracture, pulmonary contusion, or pneumothorax. #. Mild blunting of the RIGHT lateral costophrenic angle suggests a small pleural effusion. #. The heart, pulmonary vasculature, and mediastinal contours are unremarkable. XR lumbar Radiology Interpretation Completed By: Radiologist Summary of Radiographic Findings: IMPRESSION: No fracture of the lumbar spine is noted. Back Pain Course/Dx - Course Course Of Treatment: XRs as above. Suspect acute on chronic back pain that appears MSK today. His medications and comorbidities pose a difficult situation to control his discomfort. He has been taking tylenol and occasional ibuprofen with mild relief. He has an appt in 2 days to see his PCP. I will rx lidocaine patches and have him keep his appt with PCP in 2 days for a recheck - Differential Dx/Diagnosis Provider Diagnosis: Back pain Discharge ED - Sign-Out/Discharge Documenting (check all that apply): Patient Departure All imaging exams completed and their final reports reviewed: Yes - Discharge Plan Condition: Stable Disposition: HOME Prescriptions: Lidocaine PATCH 5%* [Lidoderm 5% Patch*] 1 patch TRANSDERM DAILY PRN #14 patch PRN Reason: Pain - Mild Patient Education Materials: Chronic Back Pain (DC) Referrals: Geraldo Saab MD [Primary Care Provider] - 2 Days Additional Instructions: If you develop a fever, shortness of breath, chest pain, new or worsening symptoms - please call your PCP or go to the ED immediately. Please keep your appointment with Dr. Saab in 2 days for a recheck of your pain - Billing Disposition and Condition Condition: STABLE Disposition: Home
[2019-03-04 14:37] VITALS: BP 119/91
== END 2019-03-04 14:38 | disposition home or self-care (01) ==
LOC: UCEAST 11:13
DX: M54.9 Dorsalgia, unspecified (principal); I10 Essential (primary) hypertension; G20 Parkinson's disease; Z88.1 Allergy status to other antibiotic agents; Z88.8 Allergy status to other drugs, medicaments and biological substances; Z79.899 Other long term (current) drug therapy; Z87.891 Personal history of nicotine dependence
CPT/HCPCS: 72110; 81003; 99212; G0463

== ENCOUNTER 2019-06-05 07:06 | Emergency (ER) | payer MEDICARE, BC ==
--- OUTSIDE RECORDS SUMMARY | 2019-06-05 07:14 | XMS REPORT | Continuity of Care Document ---
:1945 External Reference #:[id number] Author Name Femi Lou DO (transmitted by agent of provider June) Address [address], [place] [address] Care Team Providers Name Role Phone Geraldo Saab III, MD - Internal Care Team Information [place] [phone] Medicine Ck Aalniz MD - Neurology Care Team Information [place] Problems Active Problems Provider Date Impaired fasting [...] apnea of adult Shira Loredo DNP, RN, [facility] Onset: Note: Mild. 07/24/14: AHI 7.7, [...] Unknown Quit in 1982 Smoking Status Reviewed: 04/03/19 Quit in 1982 ETOH Use Consumes 1 [...] Mirapex ER 1 tablet daily 30tabs G20 Drew Thomas, 01/30/2019 0.375mg M.D. Tablets ER 24HR Rasagiline Mesylate take 1 a day 90tabs G20 Drew Thomas, 10/10/2018 M.D. 0.5mg Tablets Omeprazole take one capsule 30caps K21.9 Geraldo Saab, 08/23/2018 20mg by mouth once M.D. Capsules DR daily Compression 2Pair R60.0 Danny Mir MD 07/12/2018 [place] Vesna Salcedo S80.01xA Danny Mir MD 06/12/2018 [facility] G20 Sinemet CR 2 tabs by mouth 360tabs Drew Thomas, 06/04/2018 25-100mg Tablets three times a day M.D. ER and 1 tab Melatonin 1 cap [...] Iu. take one capsule/tablet daily by mouth Fludrocortisone Acetate take 1 tab by mouth 30tabs Drew Thomas, 0.1mg daily M.D. Tablets Vitamin B12 1 by mouth every day Unknown 1000mcg Tablets ER Medications Administered in Office Medication SIG Qnty Indications Ordering Provider Date Influenza Virus Vaccine Geraldo Saab M.D. 11/24/2014 Injection Influenza Virus Vaccine Unknown 12/24/2013 Injection Immunizations CPT Code Status Date Vaccine Lot # [id number] Given 12/11/2017 Fluzone High Dose 61423 Given 01/14/2016 Fluzone High Dose 40016 Given 08/31/2014 Tdap - Tetanus/Diptheria/Acellular Pertussis [id number] 48788 Given 08/31/2014 Pneumococcal Conjugate Vaccine 13 Valent For [id number] Intramuscular Use 22045 Given 07/28/2010 Pneumonia Vaccine [id number] 33947 Given 01/14/2009 Influenza Virus 3Yrs & Over 19811 Given 09/07/2008 Zoster (Zostavax) 89002 Given 01/01/2008 Influenza Virus 3Yrs & Over 34922 Given 07/13/2004 Td (History By Patient) Vital Signs Date Vital Result Comment 04/03/2019 11:56am Height 70 inches 5'10" Weight 175.00 lb Heart Rate 51 /min BP Systolic 138 mmHg BP Diastolic 92 mmHg BMI (Body Mass Index) 25.1 kg/m2 03/06/2019 3:42pm Height 70 inches 5'10" Weight 188.00 lb Heart Rate 56 /min BP Systolic Sitting 171 mmHg BP Diastolic Sitting 98 mmHg BMI (Body Mass Index) 27.0 kg/m2 Results Test Acquired Date Facility Test Result H/L Range Note Poc Urinalysis 03/04/2019 [facility] Poc Glucose, NEGATIVE Negative [address] [place] [address] [phone] Poc Bilirubin, Urine NEGATIVE Negative Poc Ketone, Urine NEGATIVE Negative Poc Specific [place], Urine 1.025 Normal 1.010-1.030 Poc Blood, Urine NEGATIVE Negative 1 Poc pH, Urine 5.5 Normal 5-9 Poc Protein, Urine NEGATIVE Negative Poc Urobilinogen, Urine 0.2 Negative Poc Nitrite, Urine NEGATIVE Negative Poc Leukocytes, Urine NEGATIVE Negative Poc Color, Urine DARK YELLOW Poc Clarity, Urine CLEAR 1 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 [employer]: [id number] Procedures Date Code Description Status 05/22/2019 63497 Dest Lesion Each Addl Lesion 2 Through 14 Each Completed 05/22/2019 49215 Destruction ALL Benign Or Premalignant Lesion (Other Completed Than [place] 01/06/2019 78165 With Brain Neurostimulator Pulse Generator, First 15 Completed Minutes 01/03/2019 11205 Stress ECHO Interpretation/Report Hospital Completed 01/03/2019 95546 Treadmill Interp/Report Only Completed 01/03/2019 12570 Stress Test Supervsn W/Out I/R Completed 09/04/2016 20915854 Colonoscopy Completed 09/22/2005 41769770 Colonoscopy Completed Medical Devices Description No Information Available Encounters Type Date Location Provider Dx Diagnosis Office Visit 05/22/2019 [facility] Dermatology Femi R D18.01 Hemangioma of skin 11:00a [place], and subcutaneous tissue Z08 Encntr for follow-up exam after trtmt for malignant neoplasm Z85.828 Personal history of other malignant neoplasm of skin L57.0 Actinic keratosis Office Visit 04/03/2019 12:00p [facility] Drew Thomas, 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 disease I95.1 Orthostatic hypotension Office Visit 01/14/2019 Pulmon[facility] And Shira Loredo, G47.33 Obstructive 2:30p [facility]- sleep apnea [facility] (adult) (pediatric) Office Visit 12/30/2018 [facility] Neri Curry Parkinson' s 2:30p [facility] Josue disease G47.33 Obstructive sleep apnea (adult) (pediatric) I95.1 Orthostatic hypotension Assessments Date Code Description Provider 05/22/2019 D18.01 Hemangioma of skin and subcutaneous Eyad Blackmon MD tissue 05/22/2019 D18.01 Hemangioma of skin and subcutaneous Femi Lou DO tissue 05/22/2019 Z08 Encounter for follow-up examination Eyad Blackmon MD after completed treatment for malignant neoplasm 05/22/2019 Z08 Encounter for follow-up examination Femi Lou DO after completed treatment for malignant neoplasm 05/22/2019 Z85.828 Personal history of other malignant Eyad Blackmon MD neoplasm of skin 05/22/2019 Z85.828 Personal history of other malignant Femi Lou DO neoplasm of skin 05/22/2019 L57.0 Actinic keratosis Eyad Blackmon MD 05/22/2019 L57.0 Actinic keratosis Femi Lou DO 04/03/2019 G20 Parkinson's disease Drew Thomas M.D. 04/03/2019 I95.1 Orthostatic hypotension Drew Thomas M.D. 04/03/2019 R06.00 Dyspnea Drew Thomas M.D. 03/06/2019 M54.5 Low back pain Geraldo Saab M.D. 02/10/2019 G20 Parkinson's disease Drew Thomas M.D. 02/10/2019 I95.1 Orthostatic hypotension Drew Thomas M.D. 02/10/2019 R06.00 Dyspnea Drew Thomas M.D. 01/30/2019 G20 Parkinson's disease Brendan Dowd, N.P. 01/30/2019 I95.1 Orthostatic hypotension Brendan Dowd, N.P. 01/14/2019 G47.33 Obstructive sleep apnea (adult) Shira [facility], RN[facility] G20 Parkinson's disease Drew Thomas M.D. [...] 12/30/2018 I95.1 Orthostatic hypotension Drew Thomas M.D. Plan of Treatment Future Appointment(s):11/21/2019 2:00 pm - Nuvia Luna MD at [facility]06/23/2019 11:00 am - Shira Loredo DNP, RN, [facility] at [facility]07/03/2019 12:00 pm - Drew Thomas M.D. at [place] [facility]06/10/2019 2:40 pm - Nahun Clay M.D. at [facility]04/03/2019 - Drew Thomas M.D.G20 Parkinson's diseaseFollow up:Follow up in 3 months, ok to book at nevnjY31.1 Orthostatic znycsojcdmlY43.00 Dyspnea Functional Status Description No Information Available Mental Status Description No Information Available Referrals Description No Information Available
[2019-06-05 07:27] VITALS: BP 191/100
--- NOTE | 2019-06-05 07:59 | UC ---
Nausea/Vomiting/Diarrhea HPI - HPI Summary HPI Summary: 74-year-old male comes in with a chief complaint of diarrhea for 4 days. Diarrhea is watery. Has not seen any blood in. Has had abdominal cramping and then after the diarrhea the abdominal cramping goes away. Denies any persistent abdominal pain. Has no abdominal pain right now. No fevers or chills. Has had a mild runny nose and a cough. No sore throat no chest congestion. No bodyaches. - History of Current Complaint Chief Complaint: UCGI Stated Complaint: DIARRHEA Time Seen by Provider: 06/05/19 07:22 Pain Intensity: 0 - Allergies/Home Medications Allergies/Adverse Reactions: Allergies Allergy/AdvReac Type Severity Reaction Status Date / Time ciprofloxacin [From Cipro] Allergy Unknown Verified 06/05/19 07:18 Reaction Details clopidogrel [From Plavix] Allergy Unknown Verified 06/05/19 07:18 Reaction Details minocycline Allergy Hives Verified 06/05/19 07:18 Home Medications: Home Medications Flaxseed Oil 1,000 mg PO BID 07/12/17 [History Confirmed 06/05/19] Magnesium Oxide [Magnesium] 250 mg PO BID 07/12/17 [History Confirmed 06/05/19] Glucosam/Chondr/Collagn/Hyalur [Glucosamine & Chondroitin Cap] 1 cap PO DAILY [History Confirmed 06/05/19] Melatonin 5 mg PO BEDTIME PRN 02/10/18 [History Confirmed 06/05/19] Acetaminophen TAB* [Tylenol TAB*] 650 mg PO Q4H PRN tab 08/14/18 [Rx Confirmed 06/05/19] Cyanocobalamin TAB* [Vitamin B12 TAB*] 1,000 mcg PO DAILY tab 08/20/18 [Rx Confirmed 06/05/19] FLUoxetine CAP* [Prozac CAP*] 20 mg PO DAILY cap 08/20/18 [Rx Confirmed ] Fludrocortisone Acetate TAB* [Florinef TAB*] 0.1 mg PO DAILY #30 tab 08/20/18 [ Rx Confirmed 06/05/19] Polyethylene Glycol 3350* [Miralax (17 GM DOSE ASPEN)] 17 gm PO DAILY packet [Rx Confirmed 06/05/19] Rasagiline (NF) [Azilect (NF)] 0.5 mg PO DAILY tab 08/20/18 [Rx Confirmed 06/04] Carbidopa/Levodopa ER 25/100 [Carbidopa-Levo ER 25-100 Tab] 7 tab PO SEE INSTRUCTIONS 01/03/19 [History Confirmed 06/05/19] Finasteride TAB* [Proscar TAB*] 5 mg PO 1700 01/03/19 [History Confirmed ] Lidocaine PATCH 5%* [Lidoderm 5% Patch*] 1 patch TRANSDERM DAILY PRN #14 patch 03/04/19 [Rx Confirmed 06/05/19] Pramipexole Di-HCl [Pramipexole ER] 0.375 mg PO DAILY WITH MEAL 03/04/19 [ History Confirmed 06/05/19] PMH/Surg Hx/FS Hx/Imm Hx Previously Healthy: Yes - PARKINSONS, BPH - Surgical History Surgical History: Yes Surgery Procedure, Year, and Place: T/A A CHILD, 1951, [facility]. 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 WISDOM TEETH 1971,. basal cell FACE AND BACK SEVERAL TIMES IN PAST 10-15 YRS,. hernia repair inguinal + umbilical. Deep Brain Stimulation electrodes in place + pacer 2017. tooth extraction d/t abscess 2018 - Family History Known Family History: Positive: Hypertension Negative: Diabetes - Social History Alcohol Use: Daily Alcohol Amount: 1 drink per day Substance Use Type: None Smoking Status (MU): Former Smoker Type: Pipe Amount Used/How Often: PIPE Length of Time of Smoking/Using Tobacco: 6 months Have You Smoked in the Last Year: No When Did the Patient Quit Smoking/Using Tobacco: 1982 - Immunization History Most Recent Influenza Vaccination: 2018 Most Recent Tetanus Shot: 2015 Most Recent Pneumonia Vaccination: within 10 years Review of Systems All Other Systems Reviewed And Are Negative: Yes Constitutional: Positive: Other - SEE HPI Skin: Positive: Negative Eyes: Positive: Negative ENT: Positive: Nasal Discharge Respiratory: Positive: Cough Cardiovascular: Positive: Negative Gastrointestinal: Positive: Diarrhea - SEE HPI Motor: Positive: Negative Neurovascular: Positive: Negative Musculoskeletal: Positive: Negative Neurological/Mental Status: Positive: Negative Psychological: Positive: Negative Is Patient Immunocompromised?: No Physical Exam Triage Information Reviewed: Yes Appearance: Well-Appearing, No Pain Distress, Well-Nourished Vital Signs: Initial Vital Signs Temp 98.8 F 06/05/19 07:19 Pulse 72 06/05/19 07:19 Resp 18 06/05/19 07:19 BP 191/100 06/05/19 07:19 Pulse Ox 96 06/05/19 07:19 Vital Signs Reviewed: Yes Eye Exam: Normal Eyes: Positive: Conjunctiva Clear ENT: Positive: Pharynx normal Neck: Positive: Supple Respiratory: Positive: Lungs clear, Normal breath sounds, No respiratory distress Cardiovascular: Positive: RRR Abdomen Description: Positive: Nontender, Soft Bowel Sounds: Positive: Hyperactive Musculoskeletal: Positive: Strength Intact, ROM Intact Neurological: Positive: Alert, Muscle Tone Normal Psychological: Positive: Normal Response To Family, Age Appropriate Behavior Skin Exam: Normal Naus/Vom/Diarrhea Course/Dx - Course Course Of Treatment: No abdominal pain here in clinic. Denies any blood in stools no fevers. Plan right now is to get a stool sample patient to calm stool sample kit. Continue to stay hydrated. I recommended against Imodium until we know the results of the stool. With the patient know that if he has any blood in the stools any fevers any persistent abdominal pain dehydration he needs to get reevaluated again right away in the emergency department. - Differential Dx/Diagnosis Provider Diagnosis: Diarrhea Condition At Discharge: Stable Discharge ED - Sign-Out/Discharge Documenting (check all that apply): Patient Departure All imaging exams completed and their final reports reviewed: No Studies - Discharge Plan Condition: Stable Disposition: HOME Patient Education Materials: Acute Diarrhea (ED) Referrals: Geraldo Saab MD [Primary Care Provider] - Additional Instructions: FOLLOW UP WITH YOUR DOCTOR IF NOT COMPLETELY IMPROVED. GET REVALUATED SOONER IF NOT IMPROVED OR WORSE; PAIN, FEVER, YOU FEEL ILL, DEHYDRATION, BLOOD IN YOUR STOOL OR ANY QUESTIONS OR CONCERNS. - Billing Disposition and Condition Condition: STABLE Disposition: Home
== END 2019-06-05 08:18 | disposition home or self-care (01) ==
LOC: UCEAST 07:06
DX: R19.7 Diarrhea, unspecified (principal); R05 Cough; R09.89 Other specified symptoms and signs involving the circulatory and respiratory systems; G20 Parkinson's disease; Z88.1 Allergy status to other antibiotic agents; Z88.8 Allergy status to other drugs, medicaments and biological substances; Z87.891 Personal history of nicotine dependence; Z79.899 Other long term (current) drug therapy
CPT/HCPCS: 99201; G0463

== ENCOUNTER 2020-08-18 16:31 | Inpatient (IN) ==
[2020-08-18 17:05] LABS: ABS Monocytes 0.6 10^3/ul (0-0.8); ABS Neutrophils 6.6 10^3/ul (1.5-7.7); Eosinophil % 0.4 %; Hematocrit 43 % (42-52); Hemoglobin 14.3 g/dL (14.0-18.0); Lymphocyte % 11.6 %; Mean Corpuscular HGB Conc 34 g/dL (31-36); Mean Corpuscular Hemoglobin 34 pg (27-31); Mean Corpuscular Volume 100 fL (80-94); Mean Platelet Volume 9.2 fL (7.4-10.4); Nucleated Red Blood Cells % 0.1; Platelet Count 178 10^3/uL (150-450); Red Blood Count 4.28 10^6 /uL (4.18-5.48); Red Cell Distribution Width 13 % (10-15); White Blood Count 8.3 10^3/uL (3.5-10.8)
[2020-08-18 17:27] LABS: Calcium 9.1 mg/dL (8.6-10.3); EGFR Non-African American 80.2 (>60); Potassium 3.9 mmol/L (3.5-5.0); Total Bilirubin 1.2 mg/dL (0.2-1.0)
[2020-08-18] MEDS ORDERED: Carbidopa/Levodopa ER 25/100 TABLET.ER PO ONE (19:50)
[2020-08-18] MEDS ORDERED: Carbidopa/Levodop CR 50/200 TAB.CR PO ONE (21:00)
[2020-08-18 21:14] LABS: INR 1.1 (0.82-1.09)
[2020-08-18 21:35] LABS: Urine Appearance Clear; Urine Bilirubin Negative (Negative); Urine Blood Negative (Negative); Urine Color Yellow; Urine Glucose Negative (Negative); Urine Ketones 1+ (Negative); Urine Nitrite Negative (Negative); Urine Protein Negative (Negative); Urine Specific Gravity 1.021 (1.002-1.030); Urine Urobilinogen Negative (Negative)
[2020-08-18] MEDS: Heparin 5000 UNITS/ML 1 mL VIAL SUBCUT SCH (22:58)
[2020-08-19 03:44] LABS: ABS Basophils 0.1 10^3/ul (0-0.2); ABS Eosinophils 0.1 10^3/ul (0-0.6); ABS Lymphocytes 1.3 10^3/ul (1.0-4.8); ABS Monocytes 0.5 10^3/ul (0-0.8); ABS Neutrophils 3.8 10^3/ul (1.5-7.7); Hematocrit 42 % (42-52); Hemoglobin 14.3 g/dL (14.0-18.0); Lymphocyte % 23.3 %; Mean Corpuscular HGB Conc 34 g/dL (31-36); Mean Corpuscular Hemoglobin 34 pg (27-31); Mean Corpuscular Volume 100 fL (80-94); Mean Platelet Volume 9.4 fL (7.4-10.4); Nucleated Red Blood Cells % 0.1; Platelet Count 164 10^3/uL (150-450); Red Cell Distribution Width 14 % (10-15); White Blood Count 5.8 10^3/uL (3.5-10.8)
[2020-08-19 03:58] LABS: INR 1.13 (0.82-1.09)
[2020-08-19 04:00] LABS: Calcium 8.7 mg/dL (8.6-10.3); EGFR African American 110.8 (>60); EGFR Non-African American 91.6 (>60); Potassium 3.8 mmol/L (3.5-5.0)
[2020-08-19] MEDS: Carbidopa/Levodop CR 50/200 TAB.CR PO SCH ×4 (05:27→17:59)
[2020-08-19] MEDS: Heparin 5000 UNITS/ML 1 mL VIAL SUBCUT SCH ×3 (05:28→23:42)
[2020-08-19] MEDS: CMCS: Rasagiline 1 mg TAB (NF) PO SCH (09:05)
[2020-08-19 10:29] LABS: Magnesium 1.9 mg/dL (1.9-2.7)
[2020-08-20] MEDS: Heparin 5000 UNITS/ML 1 mL VIAL SUBCUT SCH ×3 (06:00→21:07)
[2020-08-20] MEDS: Carbidopa/Levodop CR 50/200 TAB.CR PO SCH ×4 (06:01→17:40)
[2020-08-20] MEDS: CMCS: Rasagiline 1 mg TAB (NF) PO SCH (09:47)
[2020-08-21] MEDS: Heparin 5000 UNITS/ML 1 mL VIAL SUBCUT SCH ×3 (05:29→21:21)
[2020-08-21] MEDS: Carbidopa/Levodop CR 50/200 TAB.CR PO SCH ×4 (05:30→17:09)
[2020-08-21 06:32] LABS: ABS Basophils 0.1 10^3/ul (0-0.2); ABS Eosinophils 0.1 10^3/ul (0-0.6); ABS Lymphocytes 1.3 10^3/ul (1.0-4.8); ABS Monocytes 0.5 10^3/ul (0-0.8); Eosinophil % 2.4 %; Hematocrit 42 % (42-52); Hemoglobin 14.8 g/dL (14.0-18.0); Lymphocyte % 25.4 %; Mean Corpuscular HGB Conc 35 g/dL (31-36); Mean Corpuscular Hemoglobin 34 pg (27-31); Mean Corpuscular Volume 98 fL (80-94); Platelet Count 166 10^3/uL (150-450); Red Blood Count 4.31 10^6 /uL (4.18-5.48); Red Cell Distribution Width 13 % (10-15); White Blood Count 4.9 10^3/uL (3.5-10.8)
[2020-08-21] MEDS: CMCS: Rasagiline 1 mg TAB (NF) PO SCH (11:08)
[2020-08-22] MEDS: Heparin 5000 UNITS/ML 1 mL VIAL SUBCUT SCH ×3 (05:46→20:39)
[2020-08-22] MEDS: Carbidopa/Levodop CR 50/200 TAB.CR PO SCH ×4 (05:48→18:09)
[2020-08-22] MEDS: CMCS: Rasagiline 1 mg TAB (NF) PO SCH (09:13)
[2020-08-23] MEDS: Heparin 5000 UNITS/ML 1 mL VIAL SUBCUT SCH ×3 (06:26→21:12)
[2020-08-23] MEDS: Carbidopa/Levodop CR 50/200 TAB.CR PO SCH ×5 (06:26→21:11)
[2020-08-23 11:28] LABS: ABS Basophils 0.1 10^3/ul (0-0.2); ABS Eosinophils 0.1 10^3/ul (0-0.6); ABS Lymphocytes 0.9 10^3/ul (1.0-4.8); ABS Monocytes 0.7 10^3/ul (0-0.8); ABS Neutrophils 4.9 10^3/ul (1.5-7.7); Hematocrit 45 % (42-52); Lymphocyte % 13.5 %; Mean Corpuscular HGB Conc 34 g/dL (31-36); Mean Corpuscular Hemoglobin 33 pg (27-31); Mean Corpuscular Volume 99 fL (80-94); Mean Platelet Volume 9.1 fL (7.4-10.4); Platelet Count 182 10^3/uL (150-450); Red Cell Distribution Width 13 % (10-15); White Blood Count 6.6 10^3/uL (3.5-10.8)
[2020-08-23 11:47] LABS: Albumin 3.8 g/dL (3.2-5.2); Albumin/Globulin Ratio 1.7 (1-3); C Reactive Protein 8.91 mg/L (<8.01); Calcium 8.8 mg/dL (8.6-10.3); EGFR African American 104.9 (>60); EGFR Non-African American 86.7 (>60); Globulin 2.2 g/dL (2-4); Potassium 4.4 mmol/L (3.5-5.0); Total Bilirubin 1.4 mg/dL (0.2-1.0)
[2020-08-23] MEDS: CMCS: Rasagiline 1 mg TAB (NF) PO SCH (12:43)
[2020-08-23 16:20] LABS: Urine Appearance Clear; Urine Bilirubin Negative (Negative); Urine Blood 1+ (Negative); Urine Color Yellow; Urine Glucose Negative (Negative); Urine Ketones Negative (Negative); Urine Nitrite Negative (Negative); Urine Protein Negative (Negative); Urine Urobilinogen Negative (Negative)
[2020-08-23 16:33] LABS: Urine Bacteria Absent (Absent); Urine Red Blood Cell 3+(>10/hpf) (Absent); Urine Squamous Epithelial Cell Present (Absent); Urine White Blood Cell Trace(0-5/hpf) (Absent)
[2020-08-24] MEDS: Carbidopa/Levodop CR 50/200 TAB.CR PO SCH ×4 (05:10→17:02)
[2020-08-24] MEDS: Heparin 5000 UNITS/ML 1 mL VIAL SUBCUT SCH ×3 (05:11→21:14)
[2020-08-24] MEDS ORDERED: Senna TAB 8.6 mg TAB PO PRN (07:59)
[2020-08-24] MEDS ORDERED: Magnesium Hydroxide LIQ 30 ML UDC PO PRN (07:59)
[2020-08-24] MEDS: CMCS: Rasagiline 1 mg TAB (NF) PO SCH (07:59)
[2020-08-25] MEDS: Carbidopa/Levodop CR 50/200 TAB.CR PO SCH ×4 (05:06→17:36)
[2020-08-25] MEDS: Heparin 5000 UNITS/ML 1 mL VIAL SUBCUT SCH ×3 (05:07→20:18)
[2020-08-25] MEDS: CMCS: Rasagiline 1 mg TAB (NF) PO SCH (07:40)
[2020-08-26] MEDS: Heparin 5000 UNITS/ML 1 mL VIAL SUBCUT SCH ×2 (05:05→14:32)
[2020-08-26] MEDS: Carbidopa/Levodop CR 50/200 TAB.CR PO SCH ×4 (05:05→18:01)
[2020-08-26] MEDS: CMCS: Rasagiline 1 mg TAB (NF) PO SCH (10:12)
[2020-08-26] MEDS ORDERED: Enoxaparin 40 MG/0.4 ML SYR SUBCUT SCH (21:00)
[2020-08-27] MEDS: Carbidopa/Levodop CR 50/200 TAB.CR PO SCH ×3 (05:44→13:35)
[2020-08-27] MEDS: CMCS: Rasagiline 1 mg TAB (NF) PO SCH (11:02)
[2020-08-27 12:52] VITALS: BP 147/80
== END 2020-08-27 14:19 | disposition swing bed (61) | DRG 57 ==
LOC: ED 16:31 → MEDTELE 16:31
PROVIDERS: ADMIT Student in an Organized Health Care Education/Training Program; ATTEND Internal Medicine

== ENCOUNTER 2020-08-27 14:23 | Inpatient (IN) ==
[2020-08-27] MEDS ORDERED: Senna TAB 8.6 mg TAB PO PRN (15:43)
[2020-08-27] MEDS ORDERED: Magnesium Hydroxide LIQ 30 ML UDC PO PRN (15:43)
[2020-08-27] MEDS: Enoxaparin 40 MG/0.4 ML SYR SUBCUT SCH (18:41)
[2020-08-27] MEDS: Carbidopa/Levodop CR 50/200 TAB.CR PO SCH (18:50)
[2020-08-28] MEDS: Carbidopa/Levodop CR 50/200 TAB.CR PO SCH ×4 (05:52→17:32)
[2020-08-28] MEDS: CMCS:Rasagiline 1 mg TAB (NF) PO SCH (09:56)
[2020-08-28] MEDS: Enoxaparin 40 MG/0.4 ML SYR SUBCUT SCH (17:31)
[2020-08-29] MEDS: Carbidopa/Levodop CR 50/200 TAB.CR PO SCH ×4 (05:50→17:19)
[2020-08-29] MEDS: CMCS:Rasagiline 1 mg TAB (NF) PO SCH (07:26)
[2020-08-29] MEDS: Enoxaparin 40 MG/0.4 ML SYR SUBCUT SCH (15:50)
[2020-08-30] MEDS: Carbidopa/Levodop CR 50/200 TAB.CR PO SCH ×4 (06:06→18:10)
[2020-08-30] MEDS: CMCS:Rasagiline 1 mg TAB (NF) PO SCH (09:58)
[2020-08-30] MEDS: Enoxaparin 40 MG/0.4 ML SYR SUBCUT SCH (16:45)
[2020-08-31] MEDS: Carbidopa/Levodop CR 50/200 TAB.CR PO SCH ×4 (05:27→17:40)
[2020-08-31] MEDS: CMCS:Rasagiline 1 mg TAB (NF) PO SCH (09:07)
[2020-08-31] MEDS: Enoxaparin 40 MG/0.4 ML SYR SUBCUT SCH (17:39)
[2020-09-01] MEDS: Carbidopa/Levodop CR 50/200 TAB.CR PO SCH ×4 (05:48→17:33)
[2020-09-01] MEDS: CMCS:Rasagiline 1 mg TAB (NF) PO SCH (09:52)
[2020-09-01] MEDS: Enoxaparin 40 MG/0.4 ML SYR SUBCUT SCH (17:33)
[2020-09-02] MEDS: Carbidopa/Levodop CR 50/200 TAB.CR PO SCH ×3 (05:53→14:08)
[2020-09-02] MEDS: CMCS:Rasagiline 1 mg TAB (NF) PO SCH (08:21)
[2020-09-02 12:49] VITALS: BP 125/80
== END 2020-09-02 16:30 | disposition short-term general hospital (02) | DRG 57 ==
LOC: MEDTELE 14:49 → MED 08-29 00:21
PROVIDERS: ADMIT Internal Medicine; ATTEND Internal Medicine